=== PATIENT | male | born 1960 | race Caucasian/White ===

== ENCOUNTER 2016-08-06 08:55 | Outpatient (RCR) | payer OTHER ==
--- OUTSIDE RECORDS SUMMARY | 2016-07-24 13:18 | XMS REPORT | Continuity of Care Document ---
Author Author [facility] Address Unknown Phone Unavailable Care Team Providers Care Product Distribution Specialist Name Role Phone PCP Unavailable Source Comments Some departments are not documenting in the electronic medical record. If you do not see the information that you expected, contact Release of Information in the Health Information Management department at [phone] for further assistance in locating additional records.[facility] Active Allergies and Adverse Reactions Not on File Current Medications Not on file Active Problems Not on file Social History Tobacco Use Types Packs/Day Years Used Date Never Assessed Plan of Care Health Maintenance Due Date Last Done Comments Physical (Comprehensive) 1968 Exam Pertussis Vaccine 1972 Tetanus Vaccine 1978 Colorectal Cancer 2011 Screening Influenza Vaccine 06/14/2016 Results from Last 3 Months Not on file
[2016-07-24 14:13] LABS: BASOPHILS % (AUTO) 0 % (0-10); EOSINOPHILS # (AUTO) 0.2 10^3/uL (0.0-0.3); EOSINOPHILS % (AUTO) 3 % (0-10); LYMPHOCYTES # (AUTO) 1.1 X 10^3 (1.0-4.0); LYMPHOCYTES % (AUTO) 17 % (12-44); MEAN CORPUSCULAR HEMOGLOBIN 22 PG (25-34); MEAN CORPUSCULAR HGB CONC 30 G/DL (32-36); MEAN CORPUSCULAR VOLUME 74 FL (80-99); MEAN PLATELET VOLUME 9.8 FL (7.4-10.4); MONOCYTES # (AUTO) 0.6 X 10^3 (0.0-1.0); MONOCYTES % (AUTO) 9 % (0-12); NEUTROPHILS # (AUTO) 4.6 X 10^3 (1.8-7.8); NEUTROPHILS % (AUTO) 71 % (42-75); PLATELET COUNT 275 10^3/uL (130-400); RED BLOOD COUNT 4.26 10^6/uL (4.35-5.85); RED CELL DISTRIBUTION WIDTH 16.6 % (10.0-14.5); WHITE BLOOD COUNT 6.5 10^3/uL (4.3-11.0)
[~2016-08-06 08:55] MED LIST: ASPI1TAB22 PO; CEFU500T PO; CELE400C PO; CYAN100071 PO; DOXY100C2 PO; FERR-74 PO; FERRIC CARBOXYMALTOSE (CANCER) 750 MG in NS (IVPB) CANCER CENTER 250 ML IV SCH; HYDR-3816 PO; INSU100C7 SQ; INSU100V5; LORA10TA76 PO; METF1000 PO; MTF500T PO; NAPR-1033 PO; NF-VAL40T PO; PANT40TA2 PO; PIOG45TA16 PO; PRAV20TA3 PO; SUCR1TAB36 PO; SULF1TAB35 PO; TAMS0.4C98 PO; VALS1TAB4 PO
== END 2016-10-22 | disposition home or self-care (01) ==
LOC: ONC 08:55
PROVIDERS: ATTEND Internal Medicine Hematology & Oncology
DX: D50.9 Iron deficiency anemia, unspecified (principal); E11.9 Type 2 diabetes mellitus without complications; B18.2 Chronic viral hepatitis C; I10 Essential (primary) hypertension; E78.5 Hyperlipidemia, unspecified; F17.210 Nicotine dependence, cigarettes, uncomplicated; F10.99 Alcohol use, unspecified with unspecified alcohol-induced disorder; E66.9 Obesity, unspecified; Z68.38 Body mass index [BMI] 38.0-38.9, adult; Z79.899 Other long term (current) drug therapy
CPT/HCPCS: 85025; 96365

== ENCOUNTER 2017-02-19 07:23 | Day surgery (SDC) | payer OTHER ==
[~2017-02-19] VITALS: Ht 177.8 cm; Wt 106.1 kg
[~2017-02-19 07:23] MED LIST changes: -FERRIC CARBOXYMALTOSE (CANCER) 750 MG in NS (IVPB) CANCER CENTER 250 ML IV SCH
[2017-02-19] MEDS ORDERED: LIDOCAINE 1% INJ 20 ML (XYLOCAINE) VIAL ONE (07:32)
[2017-02-19] MEDS ORDERED: HEParin (CATH LAB) 0 ML IV ONE (07:32)
[2017-02-19] MEDS ORDERED: NS IV 1000 ML 1,000 ML ONE (07:32)
[2017-02-19 07:51] VITALS: BP 141/85
[2017-02-19] MEDS ORDERED: NS IV 1000 ML 1,000 ML IV SCH (08:00)
[2017-02-19 08:06] LABS: RED BLOOD COUNT 2.77 10^6/uL (4.35-5.85); RED CELL DISTRIBUTION WIDTH 14.9 % (10.0-14.5); WHITE BLOOD COUNT 3.7 10^3/uL (4.3-11.0)
[2017-02-19] MEDS ORDERED: TAMS0.4C98 PO (08:14)
[2017-02-19] MEDS ORDERED: RT-ALBUINH IH (08:14)
[2017-02-19] MEDS ORDERED: ASPI-983 PO (08:14)
[2017-02-19] MEDS ORDERED: METF500T4 PO (08:14)
[2017-02-19] MEDS ORDERED: INSU100V5 SQ (08:15)
[2017-02-19 08:18] LABS: INR 1.1 (0.8-1.4)
[2017-02-19] MEDS ORDERED: SILD100T PO (08:18)
[2017-02-19] MEDS ORDERED: METF1000 PO (08:22)
[2017-02-19 08:25] LABS: BILIRUBIN,TOTAL 0.4 MG/DL (0.1-1.0); CREATININE SERUM 1.35 MG/DL (0.60-1.30); POTASSIUM 4.5 MMOL/L (3.6-5.0); TOTAL PROTEIN 7.4 G/DL (6.4-8.2)
== END 2017-02-19 08:56 | disposition home or self-care (01) ==
LOC: CATH 07:23
PROVIDERS: ATTEND Internal Medicine Cardiovascular Disease
DX: R07.89 Other chest pain (principal); Z53.09 Procedure and treatment not carried out because of other contraindication; I10 Essential (primary) hypertension; E11.9 Type 2 diabetes mellitus without complications; Z72.0 Tobacco use; Z79.899 Other long term (current) drug therapy; Z79.4 Long term (current) use of insulin
CPT/HCPCS: 36415; 80053; 80061; 85027; 85610; 85730; 87081

== ENCOUNTER 2017-02-19 10:42 | Outpatient (RCR) | payer OTHER ==
[~2017-02-19] VITALS: Ht 177.8 cm; Wt 110.2 kg
[~2017-02-19 10:42] MED LIST changes: +ASPI-983 PO; +INSU100V5 SQ; +METF500T4 PO; -PIOG45TA16 PO; +PIOG45TA18 PO; +RT-ALBUINH IH; +SILD100T PO
[2017-02-20] VITALS (7 sets, daily range): BP systolic 112–130; BP diastolic 63–80
[2017-02-20] MEDS ORDERED: NS IV 500 ML 500 ML ONE (08:39)
[2017-02-20] MEDS ORDERED: NS IV 500 ML 500 ML IV SCH (09:45)
[2017-03-08] MEDS ORDERED: VITAMIN C PO (13:39)
[2017-03-08] MEDS ORDERED: FERR-74 PO (13:39)
[2017-03-11] MEDS ORDERED: CIPR-225 PO (23:37)
[2017-03-11] MEDS ORDERED: METR500T PO (23:37)
[2017-03-11] MEDS ORDERED: PANT40TA2 PO (23:37)
[2017-03-11] MEDS ORDERED: HYOS0.1283 SL (23:37)
[2017-03-11] MEDS ORDERED: ONDA4TAB8 PO (23:37)
[2017-03-11] MEDS ORDERED: LACT1CAP8 PO (23:37)
[2017-03-11] MEDS ORDERED: DICY10CA59 PO (23:37)
[2017-04-12] MEDS ORDERED: PANT40TA2 PO (15:44)
[2017-04-12] MEDS ORDERED: SUCR1TAB36 PO (15:44)
== END 2017-05-20 | disposition home or self-care (01) ==
LOC: LAB 10:42 → SDC 10:42 → EDSTATUS 02-20 08:28
PROVIDERS: ATTEND Internal Medicine
DX: D64.9 Anemia, unspecified (principal)
CPT/HCPCS: 36430; 86850; 86900; 86901; 86920

== ENCOUNTER 2017-03-08 10:21 | Inpatient (IN) | payer OTHER ==
[2017-03-08] VITALS (17 sets, daily range): BP systolic 116–144; BP diastolic 63–97
[~2017-03-08] VITALS: Ht 177.8 cm; Wt 117.5 kg
[~2017-03-08 10:21] MED LIST changes: +PIOG45TA16 PO; -PIOG45TA18 PO
[2017-03-08] MEDS ORDERED: ASPIRIN 81 MG CHEW (CHILDREN'S ASA) PO ONE (10:45)
[2017-03-08 10:52] LABS: BASOPHILS % (AUTO) 1 % (0-10); EOSINOPHILS # (AUTO) 0.2 10^3/uL (0.0-0.3); EOSINOPHILS % (AUTO) 4 % (0-10); LYMPHOCYTES % (AUTO) 25 % (12-44); MEAN CORPUSCULAR HEMOGLOBIN 23 PG (25-34); MEAN CORPUSCULAR HGB CONC 29 G/DL (32-36); MEAN CORPUSCULAR VOLUME 78 FL (80-99); MONOCYTES # (AUTO) 0.4 X 10^3 (0.0-1.0); MONOCYTES % (AUTO) 10 % (0-12); NEUTROPHILS # (AUTO) 2.5 X 10^3 (1.8-7.8); NEUTROPHILS % (AUTO) 61 % (42-75); PLATELET COUNT 256 10^3/uL (130-400); RED CELL DISTRIBUTION WIDTH 16.2 % (10.0-14.5); WHITE BLOOD COUNT 4.2 10^3/uL (4.3-11.0)
--- NOTE | 2017-03-08 11:03 | Diagnostic Imaging Report ---
INDICATION: Chest pain. EXAMINATION: Portable chest at 10:53 AM. FINDINGS: The heart size and pulmonary vascularity are normal. The lungs are clear. There are no effusions or pneumothoraces. IMPRESSION: Negative chest. Dictated by: Dictated on workstation # [id number]
[2017-03-08 11:09] LABS: ALANINE AMINOTRANSFERASE 37 U/L (0-55); ALBUMIN 3.7 G/DL (3.2-4.5); ANION GAP 9 MMOL/L (5-14); ASPARTATE AMINO TRANSFERASE 32 U/L (5-34); BILIRUBIN,TOTAL 0.4 MG/DL (0.1-1.0); BLOOD UREA NITROGEN 26 MG/DL (7-18); BUN/CREATININE RATIO 20; CALCIUM 8.8 MG/DL (8.5-10.1); CARBON DIOXIDE 22 MMOL/L (21-32); CHLORIDE 105 MMOL/L (98-107); CREATININE SERUM 1.29 MG/DL (0.60-1.30); GFR ESTIMATED 58; GLUCOSE 215 MG/DL (70-105); MAGNESIUM 1.7 MG/DL (1.8-2.4); POTASSIUM 4.5 MMOL/L (3.6-5.0); SODIUM 136 MMOL/L (135-145); TOTAL PROTEIN 7.3 G/DL (6.4-8.2)
--- NOTE | 2017-03-08 11:11 | ED Chest Pain ---
General Chief Complaint: Chest Pain Stated Complaint: CHEST PAIN Nursing Triage Note: PT STATES HE STARTED HAVING CHEST PAIN THIS AM WHEN HE WOKE UP. STATES THAT HE HAD BEEN SCHEDULED FOR A HEART CATH LAST WEEK BUT THAT IT WAS POSTPONED BECAUSE OF HIS ANEMIA. Nursing Sepsis Screen: No Definite Risk Source: patient Exam Limitations: no limitations History of Present Illness Time seen by provider: 11:10 Initial Comments Shots for him to ER with central chest pain since this morning at 5 a.m. when he awakened. He is also had some shortness of breath. He was scheduled for a cardiac catheterization last week but is postponed because of anemia. He does report dark stools but states that he takes an iron pill so is not sure if there is any blood in the stool. 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 Timing/Duration: 1 day Severity/Quality: moderate Radiation: no radiation Activities at Onset: none Allergies and Home Medications Allergies Coded Allergies: No Known Drug Allergies (Unverified , 08/11/12) Home Medications Albuterol Sulfate 6.7 Gm Hfa.aer.ad, 2 PUFF IH QID PRN for SHORTNESS OF BREATH, (Reported) Aspirin 81 Mg Tablet.dr, 81 MG PO DAILY, (Reported) Insulin Determir 1,000 Units/10 Ml Soln, 100 UNITS SQ HS, (Reported) Loratadine 10 Mg Tablet, 10 MG PO DAILY PRN for ALLERGIES, (Reported) Metformin HCl 1,000 Mg Tablet, 1,000 MG PO BID, (Reported) Pioglitazone HCl 45 Mg Tablet, 45 MG PO DAILY, (Reported) Pravastatin Sodium 20 Mg Tablet, 20 MG PO HS, (Reported) Sildenafil Citrate 100 Mg Tablet, 100 MG PO UD PRN for ED, (Reported) Tamsulosin HCl 0.4 Mg Cap, 0.4 MG PO 1730, (Reported) Valsartan 40 Mg Tab, 40 MG PO DAILY, (Reported) Review of Systems Constitutional: see HPI EENTM: No Symptoms Reported Respiratory: See HPI, Shortness of Air Cardiovascular: See HPI, Chest Pain Gastrointestinal: No Symptoms Reported Genitourinary: No Symptoms Reported Musculoskeletal: no symptoms reported Skin: no symptoms reported Psychiatric/Neurological: No Symptoms Reported Endocrine: No Symptoms Reported Past Cizrpss-Emnbsk-Fmfwgm Hx Patient Social History Alcohol Use: Occasionally Uses Recreational Drug Use: No Smoking Status: Current Everyday Smoker Type Used: Cigarettes Recent Foreign Travel: No Contact w/Someone Who Travel: No Recent Infectious Disease Expo: No Recent Hopitalizations: No Immunizations Up To Date Date of Pneumonia Vaccine: February 19, 2007 Seasonal Allergies Seasonal Allergies: Yes Surgeries HX Surgeries: No Surgeries: Abdominal Respiratory Hx Respiratory Disorders: Yes (sleep apnea, used to use cpap) Respiratory Disorders: Sleep Apnea Cardiovascular Hx Cardiac Disorders: Yes Cardiac Disorders: Heart Attack Neurological Hx Neurological Disorders: Yes (Presumed diabetic neuropathy of feet) Neurological Disorders: Neuropathy Reproductive System Hx Reproductive Disorders: No Genitourinary Hx Genitourinary Disorders: Yes Genitourinary Disorders: Renal Failure Gastrointestinal Hx Gastrointestinal Disorders: Yes (Hepatitis C) Gastrointestinal Disorders: Hepatitis, Hiatal Hernia Musculoskeletal Hx Musculoskeletal Disorders: No Endocrine Hx Endocrine Disorders: Yes Endocrine Disorders: Diabetes, Insulin dep HEENT HX ENT Disorders: No Cancer Hx Cancer: No Psychosocial Hx Psychiatric Problems: No Integumentary HX Skin/Integumentary Disorder: No Blood Transfusions Hx Blood Disorders: No Adverse Reaction to a Blood Tr: No Physical Exam Vital Signs Vital Sign - Last 12Hours 03/08/17 10:35 Temp 98.2 Pulse 88 Resp 15 B/P (MAP) 112/73 Capillary Refill : Less Than 3 Seconds General Appearance: No Apparent Distress, WD/WN, Obese HEENT: PERRL/EOMI, TMs Normal Neck: Full Range of Motion, Normal Inspection Respiratory: Lungs Clear, Normal Breath Sounds, No Accessory Muscle Use, No Respiratory Distress Cardiovascular: Regular Rate, Rhythm, Normal Peripheral Pulses Gastrointestinal: Non Tender, Soft Extremity: Normal Capillary Refill, No Calf Tenderness Neurologic/Psychiatric: Alert, Oriented x3 Skin: Normal Color, Warm/Dry Progress/Results/Core Measures Results/Orders Lab Results Laboratory Tests Test 03/08/17 10:30 03/08/17 10:54 Range/Units White Blood Count 4.2 L 4.3-11.0 10^3/uL Red Blood Count 3.00 L 4.35-5.85 10^6/uL Hemoglobin 6.9 *L 13.3-17.7 G/DL Hematocrit 24 L 40-54 % Mean Corpuscular Volume 78 L 80-99 FL Mean Corpuscular Hemoglobin 23 L 25-34 PG Mean Corpuscular Hemoglobin Concent 29 L 32-36 G/DL Red Cell Distribution Width 16.2 H 10.0-14.5 % Platelet Count 256 130-400 10^3/uL Mean Platelet Volume 9.0 7.4-10.4 FL Neutrophils (%) (Auto) 61 42-75 % Lymphocytes (%) (Auto) 25 12-44 % Monocytes (%) (Auto) 10 0-12 % Eosinophils (%) (Auto) 4 0-10 % Basophils (%) (Auto) 1 0-10 % Neutrophils # (Auto) 2.5 1.8-7.8 X 10^3 Lymphocytes # (Auto) 1.0 1.0-4.0 X 10^3 Monocytes # (Auto) 0.4 0.0-1.0 X 10^3 Eosinophils # (Auto) 0.2 0.0-0.3 10^3/uL Basophils # (Auto) 0.0 0.0-0.1 10^3/uL Sodium Level 136 135-145 MMOL/L Potassium Level 4.5 3.6-5.0 MMOL/L Chloride Level 105 98-107 MMOL/L Carbon Dioxide Level 22 21-32 MMOL/L Anion Gap 9 5-14 MMOL/L Blood Urea Nitrogen 26 H 7-18 MG/DL Creatinine 1.29 0.60-1.30 MG/DL Estimat Glomerular Filtration Rate 58 BUN/Creatinine Ratio 20 Glucose Level 215 H 70-105 MG/DL Calcium Level 8.8 8.5-10.1 MG/DL Magnesium Level 1.7 L 1.8-2.4 MG/DL Total Bilirubin 0.4 0.1-1.0 MG/DL Aspartate Amino Transf (AST/SGOT) 32 5-34 U/L Alanine Aminotransferase (ALT/SGPT) 37 0-55 U/L Alkaline Phosphatase 45 40-136 U/L Myoglobin 38.2 10.0-92.0 NG/ML Troponin I < 0.30 <0.30 NG/ML Total Protein 7.3 6.4-8.2 G/DL Albumin 3.7 3.2-4.5 G/DL Prothrombin Time 13.6 12.2-14.7 SEC INR Comment 1.1 0.8-1.4 Activated Partial Thromboplast Time 27 24-35 SEC My Orders Orders - LUCINA GOEL FIELD CONSULTANT Cbc With Automated Diff (03/08/17 10:40) Magnesium (03/08/17 10:40) Chest 1 View, Ap/Pa Only (03/08/17 10:40) Ekg Tracing (03/08/17 10:40) Cardiac Profile 1 (03/08/17 10:40) Comprehensive Metabolic Panel (03/08/17 10:40) Myoglobin Serum (03/08/17 10:40) Protime With Inr (03/08/17 10:40) Partial Thromboplastin Time (03/08/17 10:40) O2 (03/08/17 10:40) Monitor-Rhythm Ecg Trace Only (03/08/17 10:40) Lipid Panel (03/09/17 06:00) Aspirin Chewable Tablet (Baby Aspirin Ch (03/08/17 10:45) Saline Lock/Iv-Start (03/08/17 10:40) Type And Screen (03/08/17 11:06) Red Cells Leukocytes Reduced (03/08/17 11:06) Anemia Analyzer (03/08/17 11:37) Medications Given in ED Current Medications Medications Dose Ordered Sig/Winter Route Start Time Stop Time Status Last Admin Dose Admin Aspirin 324 mg ONCE ONCE PO 03/08/17 10:45 03/08/17 10:47 DC 03/08/17 10:44 324 MG Vital Signs/I&O Vital Sign - Last 12Hours 03/08/17 10:35 Temp 98.2 Pulse 88 Resp 15 B/P (MAP) 112/73 Blood Pressure Mean: 86 Departure Communication Time/Spoke to Admitting Phy: 11:[address] Leon. We will admit, transfuse packed red cells, consult cardiology Time/Spoke to Consulting Physi: 11:40 Communication/Consulting Discussed with Dr. Stern. He will consult Progress Notes 1140-chest pain started at 5 a.m. this morning upon awakening. Despite 6 hours of constant chest pain his troponin remains negative without EKG changes. Impression Impression: Primary Impression: Chest pain Additional Impression: Symptomatic anemia Disposition: ADMITTED INPATIENT Condition: Stable Decision to Admit Reason: Admit from ER (General) Decision to Admit/Date: March 08, 2017 Time/Decision to Admit Time: 11:27 Departure-Patient Inst. Referrals: NIMISHA MORIN DO (PCP/Family) Primary Care Physician LUCINA GOEL APRN March 08, 2017 11:11
[2017-03-08 11:16] LABS: MYOGLOBIN SERUM 38.2 NG/ML (10.0-92.0)
[2017-03-08 11:21] LABS: INR 1.1 (0.8-1.4); PROTHROMBIN TIME PATIENT 13.6 SEC (12.2-14.7)
[2017-03-08 11:53] LABS: BASOPHILS % (AUTO) 1 % (0-10); EOSINOPHILS # (AUTO) 0.2 10^3/uL (0.0-0.3); EOSINOPHILS % (AUTO) 4 % (0-10); LYMPHOCYTES % (AUTO) 25 % (12-44); MEAN CORPUSCULAR HEMOGLOBIN 23 PG (25-34); MEAN CORPUSCULAR HGB CONC 29 G/DL (32-36); MEAN CORPUSCULAR VOLUME 78 FL (80-99); MONOCYTES # (AUTO) 0.4 X 10^3 (0.0-1.0); MONOCYTES % (AUTO) 10 % (0-12); NEUTROPHILS # (AUTO) 2.5 X 10^3 (1.8-7.8); NEUTROPHILS % (AUTO) 61 % (42-75); PLATELET COUNT 256 10^3/uL (130-400); RED CELL DISTRIBUTION WIDTH 16.2 % (10.0-14.5); WHITE BLOOD COUNT 4.2 10^3/uL (4.3-11.0)
[2017-03-08 11:58] LABS: RETICULOCYTE % 2.57 % (0.50-2.40)
[2017-03-08] MEDS ORDERED: NS (IVPB) 250 ML ONE (12:41)
[2017-03-08] MEDS ORDERED: CATHETER FLUSH 10 ML SYR IV PRN (13:30)
[2017-03-08] MEDS ORDERED: NS IV 500 ML 500 ML IV NR (13:30)
[2017-03-08] MEDS ORDERED: FERR-74 PO (13:39)
[2017-03-08] MEDS ORDERED: VITAMIN C PO (13:39)
--- NOTE | 2017-03-08 13:55 | Consultation-Cardiology ---
HPI-Cardiology Cardiology Consultation: Date of Consultation 03/08/17 Date of Admission 03/08/17 Attending Physician Faviola Leon MD Admitting Physician Wagner Franklin MD Consulting Physician REY LEMUS MD, MA, FACP, FACC, FSCAI, CCDS HPI: Chief Complaint: Reason for consultation: Chest discomfort 56 yo man admitted to Dr Leon with three days of epigastric discomfort, radiating to L chest, mild to mod, burning in character, without any aggravating or relieving factors. He has had such discomfort intermittently for several months. The frequency is once or twice a month. Is not specifically associated with other symptoms Independently of the chest discomfort, he has had increasing malaise and tiredness and exertional shortness of breath Denies fever or chills Has chronic mild intermittent leg swelling, unchanged in the past Denies palp or syncope Denies vomiting or diarrhea or blood in stools Review of Systems-Cardiology Review of Systems Constitutional: As described under HPI Eyes: No vision change Ears/Nose/Throat: No ear discharge, No nasal drainage, No recent hearing loss Respiratory: As described under HPI Cardiovascular: As described under HPI Gastrointestinal: As described under HPI Genitourinary: No dysuria, No hematuria, No urine frequency changes Musculoskeletal: back pain (chronic) Skin: No rash, No ulcerations Psychiatric/Neurological: No focal weakness, No seizure, No syncope Hematologic: No bleeding abnormalities CZA-Uhjchs-Owumiq Hx Patient Social History Alcohol Use: Occasionally Uses Recreational Drug Use: No Smoking Status: Current Everyday Smoker Type Used: Cigarettes Recent Foreign Travel: No Recent Infectious Disease Expo: No Hospitalization with Isolation: Denies Immunizations Up To Date Date of Pneumonia Vaccine: February 19, 2007 Past Medical History PMH As described under Assessment. Family Medical History Family Medical History: He does not report fam h/o early CAD Allergies and Home Medications Allergies Coded Allergies: No Known Drug Allergies (Unverified , 08/11/12) Home Medications Albuterol Sulfate 6.7 Gm Hfa.aer.ad, 2 PUFF IH QID PRN for SHORTNESS OF BREATH, (Reported) Aspirin 81 Mg Tablet.dr, 81 MG PO DAILY, (Reported) Ferrous Sulfate 325 Mg Tablet, 325 MG PO TID, (Reported) Insulin Determir 1,000 Units/10 Ml Soln, 100 UNITS SQ HS, (Reported) Loratadine 10 Mg Tablet, 10 MG PO DAILY PRN for ALLERGIES, (Reported) Metformin HCl 1,000 Mg Tablet, 1,000 MG PO BID, (Reported) Pioglitazone HCl 45 Mg Tablet, 45 MG PO DAILY, (Reported) Pravastatin Sodium 20 Mg Tablet, 20 MG PO HS, (Reported) Sildenafil Citrate 100 Mg Tablet, 100 MG PO UD PRN for ED, (Reported) Tamsulosin HCl 0.4 Mg Cap, 0.4 MG PO 1730, (Reported) Valsartan 40 Mg Tab, 40 MG PO DAILY, (Reported) [Vitamin C] , 1 TAB PO TID, (Reported) Physical Exam-Cardiology Physical Exam Vital Signs/I&O Vital Sign - Last 12Hours 03/08/17 03/08/17 10:35 13:39 Temp 98.2 98.1 Pulse 88 92 Resp 15 18 B/P (MAP) 112/73 132/76 Pulse Ox 98 Capillary Refill : Less Than 3 Seconds Constitutional: AAO x 3, well-developed, well-nourished HEENT: hearing is well preserved, No xanthelasmas are seen Neck: No carotid bruit, carotid pulses are 2 + bilaterally, with good upstrokes Respiratory: No accessory muscle use, No respiratory distress, lungs clear to percussion, lungs clear to auscultation Cardiovascular: regular rate-rhythm, S1 and S2, systolic murmur (soft SASHA at card base) Gastrointestinal: No tender, soft, No guarding, No rebound, audible bowel sounds Extremities: No clubbing, No cyanosis, No significant edema Neurologic/Psychiatric: oriented x 3, grossly intact, power is 5/5 both on sides Skin: No rash, No ulcerations Data Review Labs Laboratory Tests 03/08/17 10:30: White Blood Count 4.2L, Red Blood Count 3.00L, Hemoglobin 6.9*L, Hematocrit 24L , Mean Corpuscular Volume 78L, Mean Corpuscular Hemoglobin 23L, Mean Corpuscular Hemoglobin Concent 29L, Red Cell Distribution Width 16.2H, Platelet Count 256, Mean Platelet Volume 9.0, Neutrophils (%) (Auto) 61, Lymphocytes (%) (Auto) 25, Monocytes (%) (Auto) 10, Eosinophils (%) (Auto) 4, Basophils (%) ( Auto) 1, Neutrophils # (Auto) 2.5, Lymphocytes # (Auto) 1.0, Monocytes # (Auto) 0.4, Eosinophils # (Auto) 0.2, Basophils # (Auto) 0.0, Sodium Level 136, Potassium Level 4.5, Chloride Level 105, Carbon Dioxide Level 22, Anion Gap 9, Blood Urea Nitrogen 26H, Creatinine 1.29, Estimat Glomerular Filtration Rate 58 , BUN/Creatinine Ratio 20, Glucose Level 215H, Calcium Level 8.8, Magnesium Level 1.7L, Total Bilirubin 0.4, Aspartate Amino Transf (AST/SGOT) 32, Alanine Aminotransferase (ALT/SGPT) 37, Alkaline Phosphatase 45, Myoglobin 38.2, Troponin I < 0.30, Total Protein 7.3, Albumin 3.7 03/08/17 10:36: White Blood Count 4.2L, Red Blood Count 3.00L, Hemoglobin 6.9*L, Hematocrit 24L , Mean Corpuscular Volume 78L, Mean Corpuscular Hemoglobin 23L, Mean Corpuscular Hemoglobin Concent 29L, Red Cell Distribution Width 16.2H, Platelet Count 256, Mean Platelet Volume 9.0, Neutrophils (%) (Auto) 61, Lymphocytes (%) (Auto) 25, Monocytes (%) (Auto) 10, Eosinophils (%) (Auto) 4, Basophils (%) ( Auto) 1, Neutrophils # (Auto) 2.5, Lymphocytes # (Auto) 1.0, Monocytes # (Auto) 0.4, Eosinophils # (Auto) 0.2, Basophils # (Auto) 0.0, Absolute Reticulocyte Count 79, Percent Reticulocyte Count 2.57H 03/08/17 10:54: Prothrombin Time 13.6, INR Comment 1.1, Activated Partial Thromboplast Time 27 Laboratory Tests 03/08/17 10:30 03/08/17 10:36 ECG Impression ECG Comment ECG on 03/08/17 (during chest discomfort): NSR, no evidence of acute ischemia or infarction A/P-Cardiology Assessment/Admission Diagnosis Chest discomfort w/o and evidence of ACS; chest discomfort is likely noncardiac Profound anemia, recurrent after recent blood transfusions. This suggest occult bleeding Chest discomfort and anemia may be due a gastric/duodenal pathology. Pt does report a h/o HH Obesity with BMI approx 35 Chronic tobacco use DM II Hypertension CAD, as indicated by LAD calcification on CT of 02/02/16 Mild aortic root dilatation (4.3 cm arnie) on CT of January 2016 Hep C Discussion and Recomendations * There is no evidence of any ACS * We recommend treatment of anemia and investigation of cause * Ok to hold antiplatelet therapy until bleeding issue addressed * Ok to proceed with endoscopy from a cardiac standpoint * He does have cor risk factors and we discussed risk factor modification. In particular, I asked him to quit smoking immediately and completely * Dr Best is covering the Cardiology service over the weekend Clinical Quality Measures AMI/AHF: ASA po Prior to arrival: REY Zimmerman MD FACP FACC CCDS March 08, 2017 13:54
[2017-03-08 14:06] LABS: BASOPHILS % (MANUAL) 0 %; EOSINOPHILS % (MANUAL) 3 %; LYMPHOCYTES % (MANUAL) 22 %; NEUTROPHILS % (MANUAL) 69 %
[2017-03-08 14:07] LABS: ANISOCYTOSIS SLIGHT; HYPOCHROMASIA SLIGHT; MICROCYTOSIS SLIGHT; POLYCHROMASIA SLIGHT
--- NOTE | 2017-03-08 14:23 | History & Physicial ([facility]) ---
HPI History of Present Illness: 56 yo male presented to ER after having chest pain, tightness this morning. He notes that during the night he had leg cramps and then woke up around 5 with central chest pain and tightness, shortness of breath, feeling foggy and nauseated. He now has some pain in left chest. He has had some chest pain prior and was planned to have cardiac catheterization last week, but found to have marked anemia, requiring transfusion. He is significantly anemia still today. He reports anemia for several months to a year and work-up including upper and lower scope- showed polyps and hiatal hernia per his report, and CT of chest and abdomen. He denies blood in stool, vomiting blood. He does have chronic hepatitis C. Date seen by provider: March 08, 2017 Time seen by provider: 13:10 Attending Physician Faviola Leon MD PCP Wagner Franklin MD Consult Date of Admission March 08, 2017 at 11:41 am Home Medications Home Medications Reviewed patient Home Medication Reconciliation Form Allergies Coded Allergies: No Known Drug Allergies (Unverified , 08/11/12) EOK-Bdfezn-Yllqjf Hx Patient Social History Alcohol Use: Occasionally Uses Recreational Drug Use: No Smoking Status: Current Everyday Smoker Type Used: Cigarettes Recent Foreign Travel: No Contact w/other who traveled: No Recent Hopitalizations: No Recent Infectious Disease Expo: No Immunizations Up To Date Date of Pneumonia Vaccine: February 19, 2007 Past Medical History PMHx: DMII HTN HLD Chronic Hep C Iron deficiency anemia of unclear etiology PSurgHx: Right knee Right hip Family Medical History Significant Family History: Diabetes, Hypertension Review of Systems ([facility]) Constitutional: No fever, malaise, weakness EENTM: No nose congestion, No throat pain Respiratory: cough (x a few weeks), short of breath (x a few weeks) Cardiovascular: see HPI Gastrointestinal: No abdominal pain, No constipation, No diarrhea, No hematemesis, No nausea, No vomiting Genitourinary: No dysuria Musculoskeletal: joint pain (right low back) Skin: No rash Psychiatric/Neurological: No Symptoms Reported Reviewed Test Results Reviewed Test Results Lab Laboratory Tests Test 03/08/17 10:30 03/08/17 10:36 03/08/17 10:54 Range/Units White Blood Count 4.2 L 4.2 L 4.3-11.0 10^3/uL Red Blood Count 3.00 L 3.00 L 4.35-5.85 10^6/uL Hemoglobin 6.9 *L 6.9 *L 13.3-17.7 G/DL Hematocrit 24 L 24 L 40-54 % Mean Corpuscular Volume 78 L 78 L 80-99 FL Mean Corpuscular Hemoglobin 23 L 23 L 25-34 PG Mean Corpuscular Hemoglobin Concent 29 L 29 L 32-36 G/DL Red Cell Distribution Width 16.2 H 16.2 H 10.0-14.5 % Platelet Count 256 256 130-400 10^3/uL Mean Platelet Volume 9.0 9.0 7.4-10.4 FL Neutrophils (%) (Auto) 61 61 42-75 % Lymphocytes (%) (Auto) 25 25 12-44 % Monocytes (%) (Auto) 10 10 0-12 % Eosinophils (%) (Auto) 4 4 0-10 % Basophils (%) (Auto) 1 1 0-10 % Neutrophils # (Auto) 2.5 2.5 1.8-7.8 X 10^3 Lymphocytes # (Auto) 1.0 1.0 1.0-4.0 X 10^3 Monocytes # (Auto) 0.4 0.4 0.0-1.0 X 10^3 Eosinophils # (Auto) 0.2 0.2 0.0-0.3 10^3/uL Basophils # (Auto) 0.0 0.0 0.0-0.1 10^3/uL Sodium Level 136 135-145 MMOL/L Potassium Level 4.5 3.6-5.0 MMOL/L Chloride Level 105 98-107 MMOL/L Carbon Dioxide Level 22 21-32 MMOL/L Anion Gap 9 5-14 MMOL/L Blood Urea Nitrogen 26 H 7-18 MG/DL Creatinine 1.29 0.60-1.30 MG/DL Estimat Glomerular Filtration Rate 58 BUN/Creatinine Ratio 20 Glucose Level 215 H 70-105 MG/DL Calcium Level 8.8 8.5-10.1 MG/DL Magnesium Level 1.7 L 1.8-2.4 MG/DL Total Bilirubin 0.4 0.1-1.0 MG/DL Aspartate Amino Transf (AST/SGOT) 32 5-34 U/L Alanine Aminotransferase (ALT/SGPT) 37 0-55 U/L Alkaline Phosphatase 45 40-136 U/L Myoglobin 38.2 10.0-92.0 NG/ML Troponin I < 0.30 <0.30 NG/ML Total Protein 7.3 6.4-8.2 G/DL Albumin 3.7 3.2-4.5 G/DL Neutrophils % (Manual) 69 % Lymphocytes % (Manual) 22 % Monocytes % (Manual) 6 % Eosinophils % (Manual) 3 % Basophils % (Manual) 0 % Polychromasia SLIGHT Hypochromasia SLIGHT Anisocytosis SLIGHT Microcytosis SLIGHT Absolute Reticulocyte Count 79 24-90 10e9/L Percent Reticulocyte Count 2.57 H 0.50-2.40 % Prothrombin Time 13.6 12.2-14.7 SEC INR Comment 1.1 0.8-1.4 Activated Partial Thromboplast Time 27 24-35 SEC Radiology CXR 03/08: "Negative chest" Physical Exam-([facility]) Physical Exam Vital Signs VS - Last 72 Hours, by Label 03/08/17 03/08/17 03/08/17 03/08/17 10:35 12:15 12:25 12:27 Temp 98.2 98.1 Pulse 88 80 84 85 Resp 15 13 16 B/P (MAP) 112/73 116/73 Pulse Ox 97 98 03/08/17 03/08/17 03/08/17 13:00 13:39 13:54 Temp 98.1 98.4 Pulse 81 92 70 Resp 18 16 B/P (MAP) 132/76 127/81 Pulse Ox 98 97 Capillary Refill : Less Than 3 Seconds General Appearance: WD/WN, no apparent distress Respiratory: lungs clear, normal breath sounds Cardiovascular: regular rate, rhythm, no edema, no murmur Gastrointestinal: normal bowel sounds, non tender, soft, other (distended with possible ascites versus central adiposity) Extremities: no pedal edema Neurologic/Psychiatric: alert Skin: normal color, warm/dry Assessment/Plan Assessment/Plan Admission Dx 1. Severe iron deficiency anemia 2. Chest pain 3. DMII 4. HTN 5. HLD 6. Hep C Plan 1. Severe iron deficiency anemia- has had anemia c/w iron deficiency by labs for at least a year -Hematology referral 01/2016 with resultant testing- Chest CT without acute pathology, abdominal CT with lobulated liver c/w underlying chronic disease or cirrhosis, mild splenomegaly and lsighlty dilated gall bladder; EGD/colonoscopy 04/2016 with gastritis H pylori negative and tubular adenoma and non-bleeding diverticulosis -Just received transfusion last week and is below 7 again, will transfuse, but if continues to decrease, may need repeat scope vs capsule endoscopy -Liver US to follow-up CT findings and chronic Hep C 2. Chest pain- anemia related vs CAD, troponin normal -Cardiology consulted, appreciate recommendations 3. DMII- resume home insulin and metformin, hold pioglitazone 4. HTN- resume home meds 5. HLD- resume home meds 6. Hep C- liver US as noted above, AFP last year was normal, will repeat DVT ppx- SCDs, no pharmacologic ppx given possible active bleeding Diagnosis/Problems: Clinical Quality Measures AMI/AHF: ASA po Prior to arrival: No Copy Copies To 1: JOSE Jacome BETHANY N MD March 08, 2017 2:23 pm
[2017-03-08] MEDS ORDERED: RT-ALBUTEROL HFA (VENTOLIN) PER PUFF IH PRN (14:30)
[2017-03-08] MEDS ORDERED: SILDENAFIL CITRATE 100 MG PO PRN (14:30)
[2017-03-08] MEDS ORDERED: LORATADINE (CLARITIN) 10 MG TAB PO PRN (14:30)
[2017-03-08] MEDS ORDERED: RT-ALBUTEROL SULF 2.5 MG/3 ML PRE-MIX VIAL IH PRN (14:45)
--- NOTE | 2017-03-08 16:36 | Diagnostic Imaging Report ---
US HEPATIC (LIVER)[id number] TECHNIQUE: Grayscale and color Doppler imaging of the right upper quadrant was performed. INDICATION: Possible cirrhosis. COMPARISON: None available. FINDINGS: The liver is on the upper limits of normal in size measuring 18 cm in length. It demonstrates mild nodularity of the surface contours. No focal hepatic lesion is seen. Gallbladder is incompletely distended without shadowing gallstones or pericholecystic fluid. Mild diffuse gallbladder wall thickening is present, and is frequently seen with liver disease. The common bile duct was obscured by overlying bowel gas, and not visualized. The pancreas is obscured by overlying bowel gas, and not visualized. The right kidney is normal in size. No hydronephrosis, shadowing calculi, or suspicious mass lesion. No right upper quadrant ascites. IMPRESSION: 1. Nodular surface of the liver is suggestive of cirrhosis. No focal hepatic lesion. 2. No right upper quadrant ascites. 3. Mild diffuse gallbladder wall thickening is frequently seen with chronic liver disease. Dictated by: Dictated on workstation # [id number]
[2017-03-08] MEDS: metFORMIN 500 MG (GLUCOPHAGE) TAB PO SCH (17:12)
[2017-03-08] MEDS ORDERED: NON-FORMULARY MEDICATION 1 EA EA (Tamsulosin HCl (Flomax) 0.4 MG) PO SCH (17:30)
[2017-03-08] MEDS ORDERED: ALFUZOSIN HCL 10 MG TAB (UROXATRAL) PO SCH (18:00)
[2017-03-08] MEDS: NS IV 1000 ML 1,000 ML IV SCH (18:26)
[2017-03-08] MEDS ORDERED: inSUlin DETERMIR 1000 UNITS/10 ML VIAL (LEVEMIR) SQ SCH (21:00)
[2017-03-08] MEDS ORDERED: SIMvastatin 10 MG (ZOCOR) TAB PO SCH (21:00)
[2017-03-08] MEDS ORDERED: NON-FORMULARY MEDICATION 1 EA EA (Metformin HCl 1,000 MG) PO SCH (21:00)
[2017-03-08] MEDS ORDERED: NON-FORMULARY MEDICATION 1 EA EA (Pravastatin Sodium 20 MG) PO SCH (21:00)
[2017-03-08] MEDS ORDERED: inSUlin DETERMIR 1 UNIT/0.01 ML (LEVEMIR) CHARGE PER UNIT SQ SCH (21:00)
[2017-03-08] MEDS: inSUlin ASPART (NovoLOG) 1 UNIT/0.01 ML (CHARGE PER UNIT) SC SCH (21:52)
[2017-03-09] VITALS (25 sets, daily range): BP systolic 99–157; BP diastolic 63–100
[2017-03-09] MEDS: NS IV 1000 ML 1,000 ML IV SCH ×2 (03:30→07:57)
[2017-03-09 04:40] LABS: BASOPHILS % (AUTO) 1 % (0-10); EOSINOPHILS # (AUTO) 0.2 10^3/uL (0.0-0.3); EOSINOPHILS % (AUTO) 5 % (0-10); LYMPHOCYTES % (AUTO) 23 % (12-44); MEAN CORPUSCULAR HEMOGLOBIN 24 PG (25-34); MEAN CORPUSCULAR HGB CONC 31 G/DL (32-36); MEAN CORPUSCULAR VOLUME 79 FL (80-99); MEAN PLATELET VOLUME 9.8 FL (7.4-10.4); MONOCYTES # (AUTO) 0.5 X 10^3 (0.0-1.0); MONOCYTES % (AUTO) 11 % (0-12); NEUTROPHILS # (AUTO) 2.5 X 10^3 (1.8-7.8); NEUTROPHILS % (AUTO) 60 % (42-75); PLATELET COUNT 231 10^3/uL (130-400); RED BLOOD COUNT 3.37 10^6/uL (4.35-5.85); RED CELL DISTRIBUTION WIDTH 16.1 % (10.0-14.5); WHITE BLOOD COUNT 4.1 10^3/uL (4.3-11.0)
[2017-03-09 05:19] LABS: CHOLESTEROL 128 MG/DL (< 200); DIRECT LDL 77 MG/DL (1-129); TRIGLYCERIDES 89 MG/DL (<150); VLDL CHOLESTEROL 18 MG/DL (5-40)
[2017-03-09 05:21] LABS: ANION GAP 8 MMOL/L (5-14); BLOOD UREA NITROGEN 22 MG/DL (7-18); BUN/CREATININE RATIO 21; CALCIUM 8.4 MG/DL (8.5-10.1); CARBON DIOXIDE 21 MMOL/L (21-32); CHLORIDE 108 MMOL/L (98-107); CREATININE SERUM 1.06 MG/DL (0.60-1.30); GFR ESTIMATED > 60; GLUCOSE 167 MG/DL (70-105); MAGNESIUM 1.9 MG/DL (1.8-2.4); PHOSPHORUS 3.7 MG/DL (2.3-4.7); POTASSIUM 4.5 MMOL/L (3.6-5.0); SODIUM 137 MMOL/L (135-145)
[2017-03-09] MEDS: metFORMIN 500 MG (GLUCOPHAGE) TAB PO SCH (06:57)
[2017-03-09] MEDS: inSUlin ASPART (NovoLOG) 1 UNIT/0.01 ML (CHARGE PER UNIT) SC SCH ×3 (06:57→15:16)
[2017-03-09] MEDS ORDERED: VALSARTAN 40 MG PO SCH (09:00)
[2017-03-09] MEDS ORDERED: VALSARTAN 80 MG (DIOVAN) TAB PO SCH (09:00)
[2017-03-09] MEDS ORDERED: NS IV 500 ML 500 ML ONE (10:03)
[2017-03-09] MEDS ORDERED: NS IV 500 ML 500 ML IV SCH (10:15)
--- NOTE | 2017-03-09 11:55 | Diagnostic Imaging Report ---
INDICATION: Anemia and shortness of breath. Frontal chest obtained at 4:17 a.m. and compared to yesterday. FINDINGS: Cardiomegaly is again noted. There is mild central vascular prominence. There is no focal infiltrate or pneumothorax or pleural fluid. IMPRESSION: Cardiomegaly and mild central vascular prominence. No acute edema or infiltrate or pleural fluid. Stable appearance compared to the prior study. Dictated by: Dictated on workstation # [id number]
--- NOTE | 2017-03-09 12:04 | Discharge Summary ---
Diagnosis/Chief Complaint Date of Admission March 08, 2017 at 11:41 Date of Discharge March 09 Admission Diagnosis Admission Diagnosis 1. Severe iron deficiency anemia 2. Chest pain 3. DMII 4. HTN 5. HLD 6. Hep C Discharge Diagnosis 1. Severe iron deficiency anemia- has had anemia c/w iron deficiency by labs for at least a year -Hematology referral 01/2016 with resultant testing- Chest CT without acute pathology, abdominal CT with lobulated liver c/w underlying chronic disease or cirrhosis, mild splenomegaly and lsighlty dilated gall bladder; EGD/colonoscopy 04/2016 with gastritis H pylori negative and tubular adenoma and non-bleeding diverticulosis -Just received transfusion last week and is below 7 again, will transfuse, but if continues to decrease, may need repeat scope vs capsule endoscopy -Liver US to follow-up CT findings and chronic Hep C DSC: patient needs to folow upw tih Dr Santos as well as Heme/Onc. Continue the FeSO4 TID for now. May need to be on IV iron in the future or need a tagged red cell scan. will defer to PCP and Heme to order/arrange. 2. Chest pain- anemia related vs CAD, troponin normal -Cardiology consulted, appreciate recommendations DSC: Determined not to be ACS, likely symptomatic anemia. Hold antiplatelet therapy for now. 3. DMII- resume home insulin and metformin, hold pioglitazone 4. HTN- resume home meds 5. HLD- resume home meds 6. Hep C- liver US as noted above, AFP last year was normal, will repeat DSC: US shows cirrhosis, will plan to treat hep c as an outpatient, but he needs to find the source of the bleeding before we get that started. will contact Carolina Albert, hepatitis C nurse coordinator, to arrange an appointment. Chief Complaint/HPI Chief Complaint/HPI 56 yo male presented to ER after having chest pain, tightness this morning. He notes that during the night he had leg cramps and then woke up around 5 with central chest pain and tightness, shortness of breath, feeling foggy and nauseated. He now has some pain in left chest. He has had some chest pain prior and was planned to have cardiac catheterization last week, but found to have marked anemia, requiring transfusion. He is significantly anemia still today. He reports anemia for several months to a year and work-up including upper and lower scope- showed polyps and hiatal hernia per his report, and CT of chest and abdomen. He denies blood in stool, vomiting blood. He does have chronic hepatitis C. Discharge Summary-Simple/Stand Consultations Discharge Physical Examination Allergies: Coded Allergies: No Known Drug Allergies (Unverified , 08/11/12) Vitals & I&Os Vital Sign - Last 12Hours Date Time Temp Pulse Resp B/P (MAP) Pulse Ox O2 Delivery O2 Flow Rate FiO2 03/09/17 11:16 97.6 80 16 109/63 98 Intake and Output 03/09/17 00:00 Intake Total 660 ml Output Total 800 ml Balance -140 ml General Appearance: Alert, Oriented X3, Cooperative, No Acute Distress Respiratory: Clear to Auscultation, Normal Air Movement Cardiovascular: Regular Rate, Normal S1, Normal S2, No Murmurs, Gallops, Rubs Abdominal: Normal Bowel Sounds, Soft, No Tenderness, Other (obese) Extremities: No Clubbing, No Cyanosis, No Edema Skin: No Rashes, No Breakdown Neuro: Normal Speech Psych/Mental Status: Mental Status NL, Mood NL Hospital Course See final discharge diagnosis. Labs Laboratory Tests Test 03/08/17 10:30 03/08/17 10:36 03/08/17 10:54 03/08/17 20:15 Range/Units White Blood Count 4.2 L 4.2 L 4.3-11.0 10^3/uL Red Blood Count 3.00 L 3.00 L 4.35-5.85 10^6/uL Hemoglobin 6.9 *L 6.9 *L 8.5 #L 13.3-17.7 G/DL Hematocrit 24 L 24 L 28 L 40-54 % Mean Corpuscular Volume 78 L 78 L 80-99 FL Mean Corpuscular Hemoglobin 23 L 23 L 25-34 PG Mean Corpuscular Hemoglobin Concent 29 L 29 L 32-36 G/DL Red Cell Distribution Width 16.2 H 16.2 H 10.0-14.5 % Platelet Count 256 256 130-400 10^3/uL Mean Platelet Volume 9.0 9.0 7.4-10.4 FL Neutrophils (%) (Auto) 61 61 42-75 % Lymphocytes (%) (Auto) 25 25 12-44 % Monocytes (%) (Auto) 10 10 0-12 % Eosinophils (%) (Auto) 4 4 0-10 % Basophils (%) (Auto) 1 1 0-10 % Neutrophils # (Auto) 2.5 2.5 1.8-7.8 X 10^3 Lymphocytes # (Auto) 1.0 1.0 1.0-4.0 X 10^3 Monocytes # (Auto) 0.4 0.4 0.0-1.0 X 10^3 Eosinophils # (Auto) 0.2 0.2 0.0-0.3 10^3/uL Basophils # (Auto) 0.0 0.0 0.0-0.1 10^3/uL Sodium Level 136 135-145 MMOL/L Potassium Level 4.5 3.6-5.0 MMOL/L Chloride Level 105 98-107 MMOL/L Carbon Dioxide Level 22 21-32 MMOL/L Anion Gap 9 5-14 MMOL/L Blood Urea Nitrogen 26 H 7-18 MG/DL Creatinine 1.29 0.60-1.30 MG/DL Estimat Glomerular Filtration Rate 58 BUN/Creatinine Ratio 20 Glucose Level 215 H 70-105 MG/DL Calcium Level 8.8 8.5-10.1 MG/DL Magnesium Level 1.7 L 1.8-2.4 MG/DL Total Bilirubin 0.4 0.1-1.0 MG/DL Aspartate Amino Transf (AST/SGOT) 32 5-34 U/L Alanine Aminotransferase (ALT/SGPT) 37 0-55 U/L Alkaline Phosphatase 45 40-136 U/L Myoglobin 38.2 10.0-92.0 NG/ML Troponin I < 0.30 <0.30 NG/ML Total Protein 7.3 6.4-8.2 G/DL Albumin 3.7 3.2-4.5 G/DL Neutrophils % (Manual) 69 % Lymphocytes % (Manual) 22 % Monocytes % (Manual) 6 % Eosinophils % (Manual) 3 % Basophils % (Manual) 0 % Polychromasia SLIGHT Hypochromasia SLIGHT Anisocytosis SLIGHT Microcytosis SLIGHT Absolute Reticulocyte Count 79 24-90 10e9/L Percent Reticulocyte Count 2.57 H 0.50-2.40 % Prothrombin Time 13.6 12.2-14.7 SEC INR Comment 1.1 0.8-1.4 Activated Partial Thromboplast Time 27 24-35 SEC Test 03/08/17 21:50 03/09/17 03:44 03/09/17 10:15 03/09/17 10:55 Range/Units Glucometer 150 H 150 H 70-110 MG/DL White Blood Count 4.1 L 4.3-11.0 10^3/uL Red Blood Count 3.37 L 4.35-5.85 10^6/uL Hemoglobin 8.1 L 13.3-17.7 G/DL Hematocrit 27 L 40-54 % Mean Corpuscular Volume 79 L 80-99 FL Mean Corpuscular Hemoglobin 24 L 25-34 PG Mean Corpuscular Hemoglobin Concent 31 L 32-36 G/DL Red Cell Distribution Width 16.1 H 10.0-14.5 % Platelet Count 231 130-400 10^3/uL Mean Platelet Volume 9.8 7.4-10.4 FL Neutrophils (%) (Auto) 60 42-75 % Lymphocytes (%) (Auto) 23 12-44 % Monocytes (%) (Auto) 11 0-12 % Eosinophils (%) (Auto) 5 0-10 % Basophils (%) (Auto) 1 0-10 % Neutrophils # (Auto) 2.5 1.8-7.8 X 10^3 Lymphocytes # (Auto) 1.0 1.0-4.0 X 10^3 Monocytes # (Auto) 0.5 0.0-1.0 X 10^3 Eosinophils # (Auto) 0.2 0.0-0.3 10^3/uL Basophils # (Auto) 0.0 0.0-0.1 10^3/uL Sodium Level 137 135-145 MMOL/L Potassium Level 4.5 3.6-5.0 MMOL/L Chloride Level 108 H 98-107 MMOL/L Carbon Dioxide Level 21 21-32 MMOL/L Anion Gap 8 5-14 MMOL/L Blood Urea Nitrogen 22 H 7-18 MG/DL Creatinine 1.06 0.60-1.30 MG/DL Estimat Glomerular Filtration Rate > 60 BUN/Creatinine Ratio 21 Glucose Level 167 H 70-105 MG/DL Calcium Level 8.4 L 8.5-10.1 MG/DL Phosphorus Level 3.7 2.3-4.7 MG/DL Magnesium Level 1.9 1.8-2.4 MG/DL Triglycerides Level 89 <150 MG/DL Cholesterol Level 128 < 200 MG/DL LDL Cholesterol Direct 77 1-129 MG/DL VLDL Cholesterol 18 5-40 MG/DL HDL Cholesterol 35 L 40-60 MG/DL Urine Opiates Screen NEGATIVE NEGATIVE Urine Oxycodone Screen NEGATIVE NEGATIVE Urine Methadone Screen NEGATIVE NEGATIVE Urine Propoxyphene Screen NEGATIVE NEGATIVE Urine Barbiturates Screen NEGATIVE NEGATIVE Ur Tricyclic Antidepressants Screen NEGATIVE NEGATIVE Urine Phencyclidine Screen NEGATIVE NEGATIVE Urine Amphetamines Screen NEGATIVE NEGATIVE Urine Methamphetamines Screen NEGATIVE NEGATIVE Urine Benzodiazepines Screen NEGATIVE NEGATIVE Urine Cocaine Screen NEGATIVE NEGATIVE Urine Cannabinoids Screen NEGATIVE NEGATIVE Radiology Reviewed CXR 03/08: "Negative chest Discharge Instructions to patient/family Please see electonic discharge instructions given to patient. Discharge Medications Reviewed and agree with Discharge Medication list on patient's Discharge Instruction sheet Clinical Quality Measures AMI/AHF: ASA po Prior to arrival: No DVT/VTE Risk/Contraindication: Risk Factor Score Per Nursin RFS Level Per Nursing on Admit: 3=High Contraindications-Pharm: Other *list below* Other: Possible active bleeding Copy Copies To 1: CHITO SANTOS MD Copies To 2: GRAZYNA FUENTES MD, JULIE A MD March 09, 2017 12:04
--- NOTE | 2017-03-09 12:08 | Discharge Instructions ---
Discharge [facility] Discharge Medications New, Converted or Re-Newed RX: Other Continued Medications: Albuterol Sulfate (Proventil Hfa) 6.7 Gm Hfa.aer.ad 2 PUFF IH QID PRN for SHORTNESS OF BREATH, INHALER Ferrous Sulfate (Ferrous Sulfate) 325 Mg Tablet 325 MG PO TID, TAB Insulin Determir (Levemir) 1,000 Units/10 Ml Soln 100 UNITS SQ HS, EA Loratadine (Claritin) 10 Mg Tablet 10 MG PO DAILY PRN for ALLERGIES, TAB Metformin HCl (Metformin HCl) 1,000 Mg Tablet 1000 MG PO BID, TAB Pioglitazone HCl (Pioglitazone HCl) 45 Mg Tablet 45 MG PO DAILY, TAB Pravastatin Sodium (Pravastatin Sodium) 20 Mg Tablet 20 MG PO HS, TAB Sildenafil Citrate (Viagra) 100 Mg Tablet 100 MG PO UD PRN for ED, TAB Tamsulosin HCl (Flomax) 0.4 Mg Cap 0.4 MG PO 1730, CAP Valsartan (Diovan) 40 Mg Tab 40 MG PO DAILY, TAB [Vitamin C] () 1 TAB PO TID Discontinued Medications: Aspirin (Aspirin EC) 81 Mg Tablet.dr 81 MG PO DAILY, TAB Patient Instructions Goal/Follow Up Appt: [facility] will call you on Saturday to arrange a follow up appointment with Dr Santos. Patient Instructions: Please take all meds as prescribed. [facility] For: chest pain, active bleeding from any site Activity & Diet Discharge Diet: ADA Diet Activity as Tolerated: Yes Orders-Post D/C & Referrals Pneu Vac Indicated: Yes Copy Copies To 1: CHITO SANTOS MD, JULIE A MD March 09, 2017 12:08
--- NOTE | 2017-03-09 12:20 | Cardiology Progress Note ---
Cardiology SOAP Progress Note Subjective: no cardiac complaints. Objective: I&O/Vital Signs Vital Sign - Last 12Hours 03/09/17 03/09/17 03/09/17 03/09/17 01:00 01:00 02:00 03:00 Pulse 98 96 99 94 Resp 27 23 10 B/P (MAP) 152/84 126/81 157/97 Pulse Ox 97 96 96 03/09/17 03/09/17 03/09/17 03/09/17 04:00 04:00 05:00 06:00 Pulse 80 82 81 Resp 12 12 14 B/P (MAP) 137/85 106/65 126/78 Pulse Ox 96 99 91 94 03/09/17 03/09/17 03/09/17 03/09/17 07:00 07:00 08:00 11:02 Temp 97.1 97.6 Pulse 86 87 Resp 20 B/P (MAP) 110/73 Pulse Ox 98 03/09/17 11:16 Temp 97.6 Pulse 80 Resp 16 B/P (MAP) 109/63 Pulse Ox 98 Intake and Output 03/09/17 00:00 Intake Total 660 ml Output Total 800 ml Balance -140 ml Weight (Pounds): 259 Weight (Ounces): 6.0 Weight (Calculated Kilograms): 117.956012 Constitutional: AAO x 3, well-developed, well-nourished Respiratory: No accessory muscle use, No respiratory distress, lungs clear to percussion, lungs clear to auscultation Cardiovascular: regular rate-rhythm, S1 and S2, systolic murmur (soft SASHA at card base) Gastrointestional: No tender, soft, No guarding, No rebound, audible bowel sounds Extremities: No clubbing, No cyanosis, No significant edema Neurologic/Psychiatric: oriented x 3, grossly intact, power is 5/5 both on sides Skin: No rash, No ulcerations Results/Procedures: Labs Laboratory Tests 03/08/17 20:15: Hemoglobin 8.5#L, Hematocrit 28L 03/08/17 21:50: Glucometer 150H 03/09/17 03:44: Hemoglobin 8.1L, Hematocrit 27L, White Blood Count 4.1L, Red Blood Count 3.37L, Mean Corpuscular Volume 79L, Mean Corpuscular Hemoglobin 24L, Mean Corpuscular Hemoglobin Concent 31L, Red Cell Distribution Width 16.1H, Platelet Count 231, Mean Platelet Volume 9.8, Neutrophils (%) (Auto) 60, Lymphocytes (%) (Auto) 23, Monocytes (%) (Auto) 11, Eosinophils (%) (Auto) 5, Basophils (%) (Auto) 1, Neutrophils # (Auto) 2.5, Lymphocytes # (Auto) 1.0, Monocytes # (Auto) 0.5, Eosinophils # (Auto) 0.2, Basophils # (Auto) 0.0, Sodium Level 137, Potassium Level 4.5, Chloride Level 108H, Carbon Dioxide Level 21, Anion Gap 8, Blood Urea Nitrogen 22H, Creatinine 1.06, Estimat Glomerular Filtration Rate > 60, BUN /Creatinine Ratio 21, Glucose Level 167H, Calcium Level 8.4L, Phosphorus Level 3.7, Magnesium Level 1.9, Triglycerides Level 89, Cholesterol Level 128, LDL Cholesterol Direct 77, VLDL Cholesterol 18, HDL Cholesterol 35L 03/09/17 10:15: Urine Opiates Screen NEGATIVE, Urine Oxycodone Screen NEGATIVE, Urine Methadone Screen NEGATIVE, Urine Propoxyphene Screen NEGATIVE, Urine Barbiturates Screen NEGATIVE, Ur Tricyclic Antidepressants Screen NEGATIVE, Urine Phencyclidine Screen NEGATIVE, Urine Amphetamines Screen NEGATIVE, Urine Methamphetamines Screen NEGATIVE, Urine Benzodiazepines Screen NEGATIVE, Urine Cocaine Screen NEGATIVE, Urine Cannabinoids Screen NEGATIVE 03/09/17 10:55: Glucometer 150H A/P: Assessment/Dx: chest pain, Anemia, Hepatitis C, Diabetes, Active smoking Plan: Chest discomfort: acute coronary syndrome ruled out with negative serial troponin and EKG. Likely noncardiac. smoking cessation strongly recommended once okay to be discharged as per primary team the patient will follow-up with Dr. Perez as an outpatient. Profound anemia, recurrent after recent blood transfusions. This suggest occult bleeding Chest discomfort and anemia may be due a gastric/duodenal pathology. Pt does report a h/o HH Obesity with BMI approx 35 Chronic tobacco use; smoking cessation strongly recommended DM II Hypertension CAD, as indicated by LAD calcification on CT of 02/02/16 Mild aortic root dilatation (4.3 cm arnie) on CT of January 2016 Hep C Thank you for your consultation. Please call me if you have any questions. Raina Best MD, FACP, FACC, FSCAI, FHRS, CCDS Interventional Cardiology Cardiac Electrophysiology Vascular Medicine and Endovascular Interventions Clinical Quality Measures AMI/AHF: ASA po Prior to arrival: Arnold Torres MD March 09, 2017 12:20 pm
[2017-03-09 16:52] LABS: MEAN PLATELET VOLUME 9.5 FL (7.4-10.4); RED BLOOD COUNT 4.1 10^6/uL (4.35-5.85); WHITE BLOOD COUNT 4.5 10^3/uL (4.3-11.0)
[2017-03-12 07:51] LABS: FERRITIN 5.0 L NG/ML (25.0-300.0); IPF LEVEL 3.9 % (0.0-7.2)
== END 2017-03-09 17:30 | disposition home or self-care (01) | DRG 812 ==
LOC: EDUNIT# 10:21 → ER 10:24 → ICU 11:41
PROVIDERS: ADMIT Family Medicine; ATTEND Family Medicine
DX: D50.0 Iron deficiency anemia secondary to blood loss (chronic) (principal); R07.89 Other chest pain; E11.40 Type 2 diabetes mellitus with diabetic neuropathy, unspecified; I10 Essential (primary) hypertension; I25.10 Atherosclerotic heart disease of native coronary artery without angina pectoris; B18.2 Chronic viral hepatitis C; K74.60 Unspecified cirrhosis of liver; E66.9 Obesity, unspecified; E78.5 Hyperlipidemia, unspecified; F17.210 Nicotine dependence, cigarettes, uncomplicated; Z68.37 Body mass index [BMI] 37.0-37.9, adult; Z79.4 Long term (current) use of insulin; Z79.84 Long term (current) use of oral hypoglycemic drugs
CPT/HCPCS: 36415; 71010; 76705; 80048; 80053; 80061; 80306; 82105; 82728; 82962; 83735; 83874; 84100; 84484; 85007; 85014; 85018; 85025; 85027; 85045; 85055; 85610; 85730; 86850; 86900; 86901; 86920; 87081; 93005; 93041

== ENCOUNTER 2017-03-11 20:58 | Emergency (ER) | payer OTHER ==
[~2017-03-11] VITALS: Ht 177.8 cm; Wt 111.1 kg
[~2017-03-11 20:58] MED LIST changes: +VITAMIN C PO
[2017-03-11] MEDS ORDERED: ONDANSETRON 4 MG/2 ML (SDV) Z0FRAN IVP ONE (21:30)
[2017-03-11] MEDS ORDERED: NS IV 1000 ML 1,000 ML IV ONE (21:30)
--- NOTE | 2017-03-11 21:36 | ED GI ---
General Chief Complaint: Abdominal/GI Problems Stated Complaint: SOB/STOMACH PAIN/BODY ACHES/NAUSEA Nursing Triage Note: PT REPORTS DIARRHEA SINCE DISCHARGE 03/09/17 Sepsis Screen: No Definite Risk Source of Information: Patient, Old Records, Other (FEMALE S.O.) History of Present Illness Time Seen By Provider: 21:18 Initial Comments MULTIPLE COMPLAINTS PT STATES "MY GUTS ON FIRE, I CAN'T STOP CRAPPING, I FEEL LIKE SHIT, MY CHEST IS TIGHT AGAIN" PT STATES SHE WAS ADMITTED TO THE HOSPITAL LAST WEEK FOR SIMILAR SYMPTOMS, STATES HE WAS FOUND TO BE ANEMIC AND RECEIVED 4 UNITS OF BLOOD AND "FELT GREAT" AFTER HE RECEIVED THE BLOOD--WAS DISMISSED ON Saturday03/09/17 AT 1700--HAS FOLLOW UP APPOINTMENT AT [facility] TOMORROW, BUT "COULDN'T WAIT THAT LONG" PT STATES THIS IS SECOND TIME IN THE LAST MONTH HE HAS HAD TO BE TRANSFUSED-- HAD 2 UNITS THE FIRST TIME PT STATES CAUSE IS NOT KNOWN--STATES HE HAS NOT HAD COLONOSCOPY OR CT DONE PT STATES HE HAS BEEN HAVING SEVERE DIARRHEA RECENTLY AND HIS STOOLS HAVE OCCASIONALLY BEEN BLACK, BUT ARE BROWN TODAY STATES PRIOR TO BEING DISMISSED ON SATURDAY, HE HAD 2 FORMED BROWN STOOLS, BUT HAS HAD AT LEAST 20 STOOLS IN THE LAST 24 HOURS C/O NAUSEA, NO VOMITING HAS OCCASIONAL SWEATS C/O BILATERAL LOWER BACK/FLANK PAIN NO DIFFICULTY URINATING, AND VOIDING A NORMAL AMOUNT PT LAST DRANK ALCOHOL 2 WEEKS AGO PCP: DR. SANTOS AT [facility] Allergies and Home Medications Allergies Coded Allergies: No Known Drug Allergies (Unverified , 08/11/12) Home Medications Albuterol Sulfate 6.7 Gm Hfa.aer.ad, 2 PUFF IH QID PRN for SHORTNESS OF BREATH, (Reported) Ciprofloxacin HCl 500 Mg Tablet, 500 MG PO BID, #20 Prescribed by: TY GILES on 03/11/172336 Dicyclomine HCl 10 Mg Capsule, 10 MG PO Q6H PRN for ABDOMINAL PAIN, #15 Prescribed by: TY GILES on 03/11/172336 Ferrous Sulfate 325 Mg Tablet, 325 MG PO TID, (Reported) Hyoscyamine Sulfate 0.125 Mg Tab.subl, 1-2 TAB SL Q4H, #10 Prescribed by: TY GILES on 03/11/172336 Insulin Determir 1,000 Units/10 Ml Soln, 100 UNITS SQ HS, (Reported) Lactobacillus Acidophilus 1 Each Capsule, 2 EACH PO QID, #80 Prescribed by: TY GILES on 03/11/172336 Loratadine 10 Mg Tablet, 10 MG PO DAILY PRN for ALLERGIES, (Reported) Metformin HCl 1,000 Mg Tablet, 1,000 MG PO BID, (Reported) Metronidazole 500 Mg Tablet, 500 MG PO QID, #40 Prescribed by: TY GILES on 03/11/172336 Ondansetron 4 Mg Tab.rapdis, 4 MG PO Q4H, #10 Prescribed by: TY GILES on 03/11/172336 Pantoprazole Sodium 40 Mg Tablet.dr, 40 MG PO DAILY, #15 Prescribed by: TY GILES on 03/11/172336 Pioglitazone HCl 45 Mg Tablet, 45 MG PO DAILY, (Reported) Pravastatin Sodium 20 Mg Tablet, 20 MG PO HS, (Reported) Sildenafil Citrate 100 Mg Tablet, 100 MG PO UD PRN for ED, (Reported) Tamsulosin HCl 0.4 Mg Cap, 0.4 MG PO 1730, (Reported) Valsartan 40 Mg Tab, 40 MG PO DAILY, (Reported) [Vitamin C] , 1 TAB PO TID, (Reported) Review of Systems Constitutional: see HPI, diaphoresis EENTM: No Blurred Vision, No Eye Pain, Other (EYES MATTED) Respiratory: No Symptoms Reported, Denies Cough, Denies Orthopnea, Denies Shortness of Air Cardiovascular: See HPI, Chest Pain, Denies Edema, Denies Irregular Heart Rate , Denies Lightheadedness, Denies Palpitations, Denies Syncope Gastrointestinal: See HPI, Abdominal Pain, Diarrhea, Nausea, Denies Vomiting Genitourinary: No Symptoms Reported Musculoskeletal: see HPI, back pain Skin: no symptoms reported Psychiatric/Neurological: No Symptoms Reported Endocrine: No Symptoms Reported Hematologic/Lymphatic: See HPI Past Tbounhs-Ewktuy-Ywdvnk Hx Patient Social History Alcohol Use: Occasionally Uses (HISTORY OF ABUSE--PT STATES "I WAS AN ALCOHOLIC '--BUT NOW I ONLY DRINK A 6 PACK ON THE WEEKEND" ) Recreational Drug Use: Yes (+IV DRUG USE--METH, COCAINE. ALSO THC USE) Drug of Choice: HISTORY OF COCAINE, METH, AND MARIJUANA Smoking Status: Current Everyday Smoker (1 PPD) Type Used: Cigarettes 2nd Hand Smoke Exposure: Yes Recent Foreign Travel: No Contact w/Someone Who Travel: No Recent Infectious Disease Expo: No Recent Hopitalizations: Yes (03/09/17) Immunizations Up To Date Tetanus Booster (TDap): Unknown Date of Pneumonia Vaccine: February 19, 2007 Seasonal Allergies Seasonal Allergies: Yes Surgeries HX Surgeries: Yes (EGD/COLONSCOPY; COLON POLYPS REMOVED) Respiratory Hx Respiratory Disorders: Yes (sleep apnea, used to use cpap) Respiratory Disorders: Sleep Apnea Cardiovascular Hx Cardiac Disorders: Yes Cardiac Disorders: Coronary Artery Disease, Heart Attack, High Cholesterol, Hypertension Neurological Hx Neurological Disorders: Yes (Presumed diabetic neuropathy of feet) Neurological Disorders: Neuropathy Reproductive System Hx Reproductive Disorders: No Sexually Transmitted Disease: No HIV/AIDS: No Genitourinary Hx Genitourinary Disorders: Yes Genitourinary Disorders: Renal Failure Gastrointestinal Hx Gastrointestinal Disorders: Yes (HEPATITIS C--NO TREATMENT) Gastrointestinal Disorders: Gastroesophageal Reflux, Hepatitis, Polyps, Hiatal Hernia Musculoskeletal Hx Musculoskeletal Disorders: No Endocrine Hx Endocrine Disorders: Yes Endocrine Disorders: Diabetes, Insulin dep HEENT HX ENT Disorders: No Cancer Hx Cancer: No Psychosocial Hx Psychiatric Problems: No Integumentary HX Skin/Integumentary Disorder: No Blood Transfusions Hx Blood Disorders: No Adverse Reaction to a Blood Tr: No Family Medical History Significant Family History: Diabetes, Hypertension Family Medial History: Asthma 19 MOTHER Cataracts 19 FATHER Diabetes mellitus Hypertension 19 FATHER 19 MOTHER Physical Exam Vital Signs VS - Last 72 Hours, by Label 03/11/17 03/11/17 21:22 23:44 Temp 98.4 98.2 Pulse 96 90 Resp 18 18 B/P (MAP) 111/78 Pulse Ox 95 96 O2 Delivery Room Air Capillary Refill : Less Than 3 Seconds General Appearance: WD/WN, no apparent distress, obese, other (CONSTANT MOVEMENTS) HEENT: PERRL/EOMI, other (POOR DENTITION/MOST TEETH MISSING) Neck: normal inspection Respiratory: normal breath sounds Cardiovascular: regular rate, rhythm Gastrointestinal: normal bowel sounds, soft, no organomegaly, no pulsatile mass , No distended, No guarding, No rebound, tenderness (MILD DIFFUSE TENDERNESS), No hernia, No mass Extremities: normal inspection Back: no CVA tenderness 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, no motor/sensory deficits, alert, normal mood/affect, oriented x 3 Skin: normal color, warm/dry Progress/Results/Core Measures Results/Orders Lab Results Laboratory Tests Test 03/11/17 21:35 Range/Units White Blood Count 6.6 4.3-11.0 10^3/uL Red Blood Count 4.45 4.35-5.85 10^6/uL Hemoglobin 11.0 L 13.3-17.7 G/DL Hematocrit 35 L 40-54 % Mean Corpuscular Volume 80 80-99 FL Mean Corpuscular Hemoglobin 25 25-34 PG Mean Corpuscular Hemoglobin Concent 31 L 32-36 G/DL Red Cell Distribution Width 17.9 H 10.0-14.5 % Platelet Count 261 130-400 10^3/uL Mean Platelet Volume 9.4 7.4-10.4 FL Neutrophils (%) (Auto) 62 42-75 % Lymphocytes (%) (Auto) 23 12-44 % Monocytes (%) (Auto) 10 0-12 % Eosinophils (%) (Auto) 4 0-10 % Basophils (%) (Auto) 1 0-10 % Neutrophils # (Auto) 4.1 1.8-7.8 X 10^3 Lymphocytes # (Auto) 1.6 1.0-4.0 X 10^3 Monocytes # (Auto) 0.7 0.0-1.0 X 10^3 Eosinophils # (Auto) 0.3 0.0-0.3 10^3/uL Basophils # (Auto) 0.0 0.0-0.1 10^3/uL Prothrombin Time 13.1 12.2-14.7 SEC INR Comment 1.0 0.8-1.4 Activated Partial Thromboplast Time 27 24-35 SEC Urine Color YELLOW Urine Clarity SLIGHTLY CLOUDY Urine pH 5 5-9 Urine Specific [place] 1.025 H 1.016-1.022 Urine Protein 2+ H NEGATIVE Urine Glucose (UA) NEGATIVE NEGATIVE Urine Ketones 1+ H NEGATIVE Urine Nitrite NEGATIVE NEGATIVE Urine Bilirubin NEGATIVE NEGATIVE Urine Urobilinogen 1 NORMAL MG/DL Urine Leukocyte Esterase 1+ H NEGATIVE Urine RBC (Auto) NEGATIVE NEGATIVE Urine RBC NONE /HPF Urine WBC 0-2 /HPF Urine Squamous Epithelial Cells 0-2 /HPF Urine Crystals NONE /LPF Urine Bacteria NEGATIVE /HPF Urine Casts NONE /LPF Urine Mucus NEGATIVE /LPF Urine Culture Indicated NO Sodium Level 139 135-145 MMOL/L Potassium Level 4.3 3.6-5.0 MMOL/L Chloride Level 107 98-107 MMOL/L Carbon Dioxide Level 20 L 21-32 MMOL/L Anion Gap 12 5-14 MMOL/L Blood Urea Nitrogen 28 H 7-18 MG/DL Creatinine 1.47 H 0.60-1.30 MG/DL Estimat Glomerular Filtration Rate 50 BUN/Creatinine Ratio 19 Glucose Level 134 H 70-105 MG/DL Calcium Level 9.7 8.5-10.1 MG/DL Magnesium Level 2.1 1.8-2.4 MG/DL Total Bilirubin 0.6 0.1-1.0 MG/DL Aspartate Amino Transf (AST/SGOT) 39 H 5-34 U/L Alanine Aminotransferase (ALT/SGPT) 46 0-55 U/L Alkaline Phosphatase 59 40-136 U/L Troponin I < 0.30 <0.30 NG/ML B-Type Natriuretic Peptide 14.6 <100.0 PG/ML Total Protein 8.7 H 6.4-8.2 G/DL Albumin 4.4 3.2-4.5 G/DL Amylase Level 72 25-125 U/L Lipase 32 8-78 U/L Urine Opiates Screen NEGATIVE NEGATIVE Urine Oxycodone Screen NEGATIVE NEGATIVE Urine Methadone Screen NEGATIVE NEGATIVE Urine Propoxyphene Screen NEGATIVE NEGATIVE Urine Barbiturates Screen NEGATIVE NEGATIVE Ur Tricyclic Antidepressants Screen NEGATIVE NEGATIVE Urine Phencyclidine Screen NEGATIVE NEGATIVE Urine Amphetamines Screen NEGATIVE NEGATIVE Urine Methamphetamines Screen NEGATIVE NEGATIVE Urine Benzodiazepines Screen NEGATIVE NEGATIVE Urine Cocaine Screen NEGATIVE NEGATIVE Urine Cannabinoids Screen NEGATIVE NEGATIVE Serum Alcohol < 10 <10 MG/DL My Orders Orders - TY GILES DO Saline Lock/Iv-Start (03/11/17 21:26) Ct Abdomen/Pelvis W (03/11/17 21:26) Alcohol (03/11/17 21:26) Amylase (03/11/17 21:26) Cbc With Automated Diff (03/11/17 21:26) Comprehensive Metabolic Panel (03/11/17 21:26) Drug Screen Stat (Urine) (03/11/17 21:26) Lipase (03/11/17 21:26) Magnesium (03/11/17 21:26) Protime With Inr (03/11/17 21:26) Partial Thromboplastin Time (03/11/17 21:26) Ua Culture If Indicated (03/11/17 21:26) Stool Culture (03/11/17 21:26) Fecal Wbc (03/11/17 21:26) Ova And Parasite Exam (03/11/17 21:26) Saline Lock/Iv-Start (03/11/17 21:26) C Difficile Ag + Toxin A/B. (03/11/17 21:26) BNP (03/11/17 21:30) Troponin I (03/11/17 21:30) Ekg Tracing (03/11/17 21:30) Monitor-Rhythm Ecg Trace Only (03/11/17 21:30) Ondansetron Injection (Zofran Injectio (03/11/17 21:30) Saline Lock/Iv-Start (03/11/17 21:30) Ns Iv 1000 Ml (Sodium Chloride 0.9%) (03/11/17 21:30) Iohexol Injection (Omnipaque 350 Mg/Ml 1 (03/11/17 22:15) Ns (Ivpb) (Sodium Chloride 0.9% Ivpb Bag (03/11/17 22:15) Ciprofloxacin Tablet (Cipro Tablet) (03/11/17 23:45) Metronidazole Tablet (Flagyl Tablet) (03/11/17 23:45) Pantoprazole Tablet (Protonix Tablet) (03/11/17 23:45) Medications Given in ED Current Medications Medications Dose Ordered Sig/Winter Route Start Time Stop Time Status Last Admin Dose Admin Iohexol 100 ml ONCE ONCE IV 03/11/17 22:15 03/11/17 22:16 DC 03/11/17 22:06 100 ML Metronidazole 500 mg ONCE ONCE PO 03/11/17 23:45 03/11/17 23:45 DC 03/11/17 23:41 500 MG Ondansetron HCl 4 mg ONCE ONCE IVP 03/11/17 21:30 03/11/17 21:47 DC 03/11/17 21:54 4 MG Pantoprazole Sodium 40 mg ONCE ONCE PO 03/11/17 23:45 03/11/17 23:45 DC 03/11/17 23:41 40 MG Sodium Chloride 100 ml ONCE ONCE IV 03/11/17 22:15 03/11/17 22:16 DC 03/11/17 22:06 80 ML Sodium Chloride 1,000 ml @ 0 mls/hr Q0M ONCE IV 03/11/17 21:30 03/11/17 21:47 DC 03/11/17 21:54 0 MLS/HR Vital Signs/I&O Vital Sign - Last 12Hours 03/11/17 03/11/17 21:22 23:44 Temp 98.4 98.2 Pulse 96 90 Resp 18 18 B/P (MAP) 111/78 Pulse Ox 95 96 O2 Delivery Room Air Intake and Output 03/12/17 00:00 Intake Total 1000 ml Balance 1000 ml Blood Pressure Mean: 89 Progress Note : Progress Note HAD 1 STOOL DURING ER STAY--SENT TO LAB NO VOMITING DURING ER STAY FEELS BETTER AT DISMISSAL Diagnostic Imaging Comments CT ABDOMEN/PELVIS--SUSPECTED MURAL THICKENING OF SIGMOID COLON, NON-SPECIFIC FINDINGS AT BLADDER WALL, DISTENDED GB AND WALL THICKENING, AND OTHER NON- SPECIFIC FINDINGS--PER [facility] VIA FAX @ 1500 Departure Impression Impression: Primary Impression: Colitis Additional Impressions: Mild dehydration POSSIBLE GALL BLADDER DISEASE Disposition: HOME, SELF-CARE Condition: Improved Departure-Patient Inst. Referrals: CHITO SANTOS MD (PCP/Family) Primary Care Physician Patient Instructions: Dehydration, Adult (DC), Microscopic Colitis Add. Discharge Instructions: CLEAR LIQUIDS--WATER, BROTH, JELLO, GATORADE BRATS DIET--BANANAS, RICE, APPLESAUCE, TOAST, SALTINES FO[place] [facility] [place]UR[place] C[place] All discharge instructions reviewed with patient and/or family. Voiced understanding. Scripts Ondansetron (Zofran Odt) 4 Mg Tab.rapdis 4 MG PO Q4H for Nausea/Vomiting, #10 TAB Prov: CHAN,TY K DO 03/11/17 Pantoprazole Sodium (Protonix) 40 Mg Tablet.dr 40 MG PO DAILY, #15 TAB Prov: CHAN,TY K DO 03/11/17 Hyoscyamine Sulfate (Levsin-Sl) 0.125 Mg Tab.subl 1-2 TAB SL Q4H for Abdominal Pain, #10 TAB Prov: CHAN,TY K DO 03/11/17 Metronidazole (Flagyl) 500 Mg Tablet 500 MG PO QID for FOR INFECTION, #40 TAB Prov: CHAN,TY K DO 03/11/17 Ciprofloxacin HCl (Cipro) 500 Mg Tablet 500 MG PO BID, #20 TAB Prov: TY GILES DO 03/11/17 Dicyclomine HCl (Bentyl) 10 Mg Capsule 10 MG PO Q6H Y for ABDOMINAL PAIN, #15 CAP Prov: TY GILES DO 03/11/17 Lactobacillus Acidophilus (Acidophilus) 1 Each Capsule 2 EACH PO QID, #80 CAP Prov: TY GILES DO 03/11/17 TY GILES DO March 11, 2017 21:36
[2017-03-11 21:46] LABS: BASOPHILS % (AUTO) 1 % (0-10); EOSINOPHILS # (AUTO) 0.3 10^3/uL (0.0-0.3); EOSINOPHILS % (AUTO) 4 % (0-10); LYMPHOCYTES # (AUTO) 1.6 X 10^3 (1.0-4.0); LYMPHOCYTES % (AUTO) 23 % (12-44); MEAN CORPUSCULAR HEMOGLOBIN 25 PG (25-34); MEAN CORPUSCULAR HGB CONC 31 G/DL (32-36); MEAN CORPUSCULAR VOLUME 80 FL (80-99); MEAN PLATELET VOLUME 9.4 FL (7.4-10.4); MONOCYTES # (AUTO) 0.7 X 10^3 (0.0-1.0); MONOCYTES % (AUTO) 10 % (0-12); NEUTROPHILS # (AUTO) 4.1 X 10^3 (1.8-7.8); NEUTROPHILS % (AUTO) 62 % (42-75); PLATELET COUNT 261 10^3/uL (130-400); RED BLOOD COUNT 4.45 10^6/uL (4.35-5.85); RED CELL DISTRIBUTION WIDTH 17.9 % (10.0-14.5); WHITE BLOOD COUNT 6.6 10^3/uL (4.3-11.0)
[2017-03-11 21:47] LABS: BILIRUBIN,URINE NEGATIVE (NEGATIVE); KETONES,URINE 1+ (NEGATIVE); LEUKOCYTE ESTERASE ,URINE 1+ (NEGATIVE); NITRITE,URINE NEGATIVE (NEGATIVE); PH,URINE 5 (5-9); PROTEIN,URINE 2+ (NEGATIVE); UROBILINOGEN,URINE 1 MG/DL (NORMAL)
[2017-03-11 21:58] LABS: PROTHROMBIN TIME PATIENT 13.1 SEC (12.2-14.7)
[2017-03-11 22:01] LABS: SQUAMOUS EPITHELIAL CELL,UR 0-2 /HPF; WBC,URINE 0-2 /HPF
[2017-03-11 22:09] LABS: ALANINE AMINOTRANSFERASE 46 U/L (0-55); ALBUMIN 4.4 G/DL (3.2-4.5); AMYLASE 72 U/L (25-125); ANION GAP 12 MMOL/L (5-14); ASPARTATE AMINO TRANSFERASE 39 U/L (5-34); BILIRUBIN,TOTAL 0.6 MG/DL (0.1-1.0); BLOOD UREA NITROGEN 28 MG/DL (7-18); BUN/CREATININE RATIO 19; CALCIUM 9.7 MG/DL (8.5-10.1); CARBON DIOXIDE 20 MMOL/L (21-32); CHLORIDE 107 MMOL/L (98-107); CREATININE SERUM 1.47 MG/DL (0.60-1.30); GFR ESTIMATED 50; GLUCOSE 134 MG/DL (70-105); LIPASE 32 U/L (8-78); MAGNESIUM 2.1 MG/DL (1.8-2.4); POTASSIUM 4.3 MMOL/L (3.6-5.0); SODIUM 139 MMOL/L (135-145); TOTAL PROTEIN 8.7 G/DL (6.4-8.2)
[2017-03-11 22:15] LABS: TROPONIN I < 0.30 NG/ML (<0.30)
[2017-03-11] MEDS ORDERED: NS 100 ML (IVPB) BAG IV ONE (22:15)
[2017-03-11] MEDS ORDERED: IOHEXOL 350 MG/ML 100 ML (OMNIPAQUE 350) VIAL IV ONE (22:15)
[2017-03-11 22:20] LABS: ALCOHOL < 10 MG/DL (<10)
[2017-03-11] MEDS ORDERED: CIPR-225 PO (23:37)
[2017-03-11] MEDS ORDERED: METR500T PO (23:37)
[2017-03-11] MEDS ORDERED: HYOS0.1283 SL (23:37)
[2017-03-11] MEDS ORDERED: LACT1CAP8 PO (23:37)
[2017-03-11] MEDS ORDERED: ONDA4TAB8 PO (23:37)
[2017-03-11] MEDS ORDERED: PANT40TA2 PO (23:37)
[2017-03-11] MEDS ORDERED: DICY10CA59 PO (23:37)
[2017-03-11 23:44] VITALS: BP 126/81
[2017-03-11] MEDS ORDERED: CIPROFLOXACIN 500 MG (CIPRO) TABLET PO SCH (23:45)
[2017-03-11] MEDS ORDERED: metroNIDAZOLE 500 MG (FLAGYL) TAB PO ONE (23:45)
[2017-03-11] MEDS ORDERED: PANTOPRAZOLE 40 MG (PROTONIX) TAB PO ONE (23:45)
--- NOTE | 2017-03-12 07:36 | Diagnostic Imaging Report ---
PROCEDURE: CT abdomen and pelvis with contrast. TECHNIQUE: Multiple contiguous axial images were obtained through the abdomen and pelvis after administration of intravenous contrast. INDICATION: Diarrhea. Anemia. COMPARISON: CT chest and abdomen without and with IV contrast 02/02/2016. FINDINGS: Cirrhotic configuration of the liver. The gallbladder, pancreas, spleen, adrenals, kidneys and collecting systems are unremarkable. Negative appendix. Colonic diverticulosis. There appears to be focal wall thickening within the proximal sigmoid colon. This is in a region of numerous diverticuli but demonstrates no adjacent mesenteric inflammatory changes. Mildly prominent but subcentimeter left external iliac chain lymph nodes. There is a small cystic-appearing region measuring 1.3 cm in the anterior, superior bladder wall with soft tissue attenuation extending along the midline superiorly. No free intraperitoneal air or fluid. No evidence of bowel obstruction. No acute osseous findings. IMPRESSION: 1. Apparent wall thickening in the proximal sigmoid colon on this noncontrast exam. This is in a region of numerous diverticuli. There are no regional mesenteric inflammatory changes. A mass cannot be excluded. Recommend colonoscopy for further evaluation. 2. Cystic appearing region in the bladder wall may represent a urachal remnant. Again, a mass cannot be excluded. This could be better evaluated with cystoscopy, possibly CT urogram. 3. Cirrhotic configuration of the liver. Dictated by: Dictated on workstation # [id number]
== END 2017-03-11 23:44 | disposition home or self-care (01) ==
LOC: EDUNIT# 20:58 → ER 21:00
DX: K52.9 Noninfective gastroenteritis and colitis, unspecified (principal); K57.30 Diverticulosis of large intestine without perforation or abscess without bleeding; N32.9 Bladder disorder, unspecified; I25.10 Atherosclerotic heart disease of native coronary artery without angina pectoris; I10 Essential (primary) hypertension; E11.9 Type 2 diabetes mellitus without complications; I25.2 Old myocardial infarction; B19.20 Unspecified viral hepatitis C without hepatic coma; Z79.4 Long term (current) use of insulin; Z79.84 Long term (current) use of oral hypoglycemic drugs; Z79.899 Other long term (current) drug therapy
CPT/HCPCS: 36415; 74177; 80053; 80306; 80320; 81000; 82150; 83690; 83735; 83880; 84484; 85025; 85610; 85730; 87045; 87046; 87177; 87324; 87328; 87329; 87449; 89055; 93005; 93041

== ENCOUNTER 2017-04-10 05:37 | Outpatient (CLI) | payer OTHER ==
[~2017-04-10] VITALS: Ht 177.8 cm; Wt 111.3 kg
[~2017-04-10 05:37] MED LIST changes: +CIPR-225 PO; +DICY10CA59 PO; +HYOS0.1283 SL; +LACT1CAP8 PO; +METR500T PO; +ONDA4TAB8 PO; -PIOG45TA16 PO; +PIOG45TA18 PO
== END 2017-04-10 11:23 ==
LOC: PREOP 05:37
PROVIDERS: ATTEND Surgery
DX: Z01.818 Encounter for other preprocedural examination (principal); D50.9 Iron deficiency anemia, unspecified

== ENCOUNTER 2017-04-12 12:04 | Day surgery (SDC) | payer OTHER ==
[~2017-04-12] VITALS: Ht 177.8 cm; Wt 111.3 kg
--- OUTSIDE RECORDS SUMMARY | 2017-04-12 12:11 | XMS REPORT | Continuity of Care Document ---
Author Author 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 08/11/2012 Ot 607.83 EDEMA OF PENIS 09/15/2012 NIMISHA MORIN DO 250.02 DIABETES II UNCONTROLLED (UNCOMPLICATED) 09/15/2012 NIMISHA MORIN DO 401.1 BENIGN ESSENTIAL HYPERTENSION 09/15/2012 NIMISHA MORIN DO V65.42 COUNSELING - SMOKING CESSATION 09/15/2012 250.02 DIABETES II UNCONTROLLED (UNCOMPLICATED) 09/15/2012 401.1 BENIGN ESSENTIAL HYPERTENSION 09/15/2012 V65.42 COUNSELING - SMOKING CESSATION 09/15/2012 NIMISHA MORIN DO 250.02 DIABETES II UNCONTROLLED (UNCOMPLICATED) 09/15/2012 NIMISHA MORIN DO 401.1 BENIGN ESSENTIAL HYPERTENSION 09/15/2012 NIMISHA MORIN DO V65.42 COUNSELING - SMOKING CESSATION 09/15/2012 250.02 DIABETES MELLITUS TYPE 2 - UNCOMPLICATED, UNCONTROLLED 09/15/2012 401.1 ESSENTIAL HYPERTENSION BENIGN 09/15/2012 V65.42 Patient Education - Alcohol 09/15/2012 250.02 DIABETES MELLITUS TYPE 2 - UNCOMPLICATED, UNCONTROLLED 09/15/2012 401.1 ESSENTIAL HYPERTENSION BENIGN 09/15/2012 V65.42 Patient Education - Alcohol 09/15/2012 250.02 DIABETES MELLITUS TYPE 2 - UNCOMPLICATED, UNCONTROLLED 09/15/2012 401.1 ESSENTIAL HYPERTENSION BENIGN 09/15/2012 V65.42 Patient Education - Alcohol 09/15/2012 GABBI DDS, DOUGLAS Barrett 250.02 DIABETES MELLITUS TYPE 2 - UNCOMPLICATED , UNCONTROLLED 09/15/2012 GABBI DDS, DOUGLAS Barrtet 401.1 ESSENTIAL HYPERTENSION BENIGN 09/15/2012 GABBI DDS, DOUGLAS Barrett V65.42 Patient Education - Alcohol 09/15/2012 MORIN DO NIMISHA K 250.02 DIABETES MELLITUS TYPE 2 - UNCOMPLICATED, UNCONTROLLED 09/15/2012 MORIN DO NIMISHA K 401.1 ESSENTIAL HYPERTENSION BENIGN 09/15/2012 MORIN DO NIMISHA K V65.42 Patient Education - Alcohol 09/15/2012 MORIN DO, NIMISHA K 250.02 DIABETES MELLITUS TYPE 2 - UNCOMPLICATED, UNCONTROLLED 09/15/2012 MORIN DO, NIMISHA K 401.1 ESSENTIAL HYPERTENSION BENIGN 09/15/2012 MORIN DO, NIMISHA K V65.42 Patient Education - Alcohol 09/15/2012 MORIN DO, NIMISHA K 250.02 DIABETES MELLITUS TYPE 2 - UNCOMPLICATED, UNCONTROLLED 09/15/2012 MORIN DO NIMISHA K 401.1 ESSENTIAL HYPERTENSION BENIGN 09/15/2012 MIKEL LEI NIMISHA K V65.42 Patient Education - Alcohol 09/15/2012 MORIN DO, NIMISHA K 250.02 DIABETES MELLITUS TYPE 2 - UNCOMPLICATED, UNCONTROLLED 09/15/2012 MORIN DO, NIMISHA K 401.1 ESSENTIAL HYPERTENSION BENIGN 09/15/2012 MORIN DO, NIMISHA K V65.42 Patient Education - Alcohol 09/15/2012 MORIN DO, NIMISHA K 250.02 DIABETES MELLITUS TYPE 2 - UNCOMPLICATED, UNCONTROLLED 09/15/2012 MORIN DO, NIMISHA K 401.1 ESSENTIAL HYPERTENSION BENIGN 09/15/2012 MORIN DO NIMISHA K V65.42 Patient Education - Alcohol 09/15/2012 MIKEL LEI NIMISHA K 250.02 DIABETES II UNCONTROLLED (UNCOMPLICATED) 09/15/2012 MORIN DO, NIMISHA K 401.1 BENIGN ESSENTIAL HYPERTENSION 09/15/2012 MORIN DO, NIMISHA K V65.42 COUNSELING - SMOKING CESSATION 09/16/2012 MIKEL LEI NIMISHA K 790.6 ABNORMAL LFT (LIVER FUNCTION TEST) 09/16/2012 790.6 ABNORMAL LFT (LIVER FUNCTION TEST) 09/16/2012 MIKEL LEI NIMISHA K 790.6 ABNORMAL LFT (LIVER FUNCTION TEST) 09/16/2012 790.6 ABNORMAL LFT (LIVER FUNCTION TEST) 09/16/2012 790.6 ABNORMAL LFT (LIVER FUNCTION TEST) 09/16/2012 790.6 ABNORMAL LFT (LIVER FUNCTION TEST) 09/16/2012 DOUGLAS SEO DDS 790.6 ABNORMAL LFT (LIVER FUNCTION TEST) 09/16/2012 MORIN DO, NIMISHA K 790.6 ABNORMAL LFT (LIVER FUNCTION TEST) 09/16/2012 MORIN DO, NIMISHA K 790.6 ABNORMAL LFT (LIVER FUNCTION TEST) 09/16/2012 MORIN DO, NIMISHA K 790.6 ABNORMAL LFT (LIVER FUNCTION TEST) 09/16/2012 MORIN DO, NIMISHA K 790.6 ABNORMAL LFT (LIVER FUNCTION TEST) 09/16/2012 MORIN DO, NIMISHA K 790.6 ABNORMAL LFT (LIVER FUNCTION TEST) 09/16/2012 MORIN DO, NMIISHA K 790.6 ABNORMAL LFT (LIVER FUNCTION TEST) 09/29/2012 MORIN DO, NIMISHA K 250.00 DIABETES MELLITUS TYPE 2 09/29/2012 250.00 DIABETES MELLITUS TYPE 2 09/29/2012 MORIN DO, NIMISHA K 250.00 DIABETES MELLITUS TYPE 2 09/29/2012 250.00 DIABETES MELLITUS TYPE 2 09/29/2012 250.00 DIABETES MELLITUS TYPE 2 09/29/2012 250.00 DIABETES MELLITUS TYPE 2 09/29/2012 DOUGLAS SEO DDS 250.00 DIABETES MELLITUS TYPE 2 09/29/2012 MORIN DO, NIMISHA K 250.00 DIABETES MELLITUS TYPE 2 09/29/2012 MORIN DO, NIMISHA K 250.00 DIABETES MELLITUS TYPE 2 09/29/2012 MORIN DO, NIMISHA K 250.00 DIABETES MELLITUS TYPE 2 09/29/2012 MORIN DO, NIMISHA K 250.00 DIABETES MELLITUS TYPE 2 09/29/2012 MORIN DO, NIMISHA K 250.00 DIABETES MELLITUS TYPE 2 10/16/2012 302.72 PSYCHOSEXUAL DYSFUNCTION WITH INHIBITED SEXUAL EXCITEMENT 10/16/2012 MORIN DO, NIMISHA K 302.72 PSYCHOSEXUAL DYSFUNCTION WITH INHIBITED SEXUAL EXCITEMENT 10/16/2012 302.72 PSYCHOSEXUAL DYSFUNCTION WITH INHIBITED SEXUAL EXCITEMENT 10/16/2012 302.72 PSYCHOSEXUAL DYSFUNCTION WITH INHIBITED SEXUAL EXCITEMENT 10/16/2012 302.72 PSYCHOSEXUAL DYSFUNCTION WITH INHIBITED SEXUAL EXCITEMENT 10/16/2012 DOUGLAS SEO DDS 302.72 PSYCHOSEXUAL DYSFUNCTION WITH INHIBITED SEXUAL EXCITEMENT 10/16/2012 MORIN DO, NIMISHA K 302.72 PSYCHOSEXUAL DYSFUNCTION WITH INHIBITED SEXUAL EXCITEMENT 10/16/2012 MORIN DO, NIMISHA K 302.72 PSYCHOSEXUAL DYSFUNCTION WITH INHIBITED SEXUAL EXCITEMENT 10/16/2012 MORIN DO, NIMISHA K 302.72 PSYCHOSEXUAL DYSFUNCTION WITH INHIBITED SEXUAL EXCITEMENT 10/16/2012 MORIN DO, NIMISHA K 302.72 PSYCHOSEXUAL DYSFUNCTION WITH INHIBITED SEXUAL EXCITEMENT 10/16/2012 MORIN DO, NIMISHA K 302.72 PSYCHOSEXUAL DYSFUNCTION WITH INHIBITED SEXUAL EXCITEMENT 11/14/2012 MORIN DO, NIMISHA K V70.5 HEALTH EXAMINATION OF DEFINED SUBPOPULATIONS 11/14/2012 V70.5 HEALTH EXAMINATION OF DEFINED SUBPOPULATIONS 11/14/2012 V70.5 HEALTH EXAMINATION OF DEFINED SUBPOPULATIONS 11/14/2012 V70.5 HEALTH EXAMINATION OF DEFINED SUBPOPULATIONS 11/14/2012 DOUGLAS SEO DDS V70.5 HEALTH EXAMINATION OF DEFINED SUBPOPULATIONS 11/14/2012 MORIN DO, NIMISHA K V70.5 HEALTH EXAMINATION OF DEFINED SUBPOPULATIONS 11/14/2012 MORIN DO, NIMISHA K V70.5 HEALTH EXAMINATION OF DEFINED SUBPOPULATIONS 11/14/2012 MORIN DO, NIMISHA K V70.5 HEALTH EXAMINATION OF DEFINED SUBPOPULATIONS 11/14/2012 MORIN DO, NIMISHA K V70.5 HEALTH EXAMINATION OF DEFINED SUBPOPULATIONS 11/14/2012 MORIN DO, NIMISHA K V70.5 HEALTH EXAMINATION OF DEFINED SUBPOPULATIONS 12/16/2012 461.9 SINUSITIS ACUTE 12/16/2012 461.9 SINUSITIS ACUTE 12/16/2012 461.9 SINUSITIS ACUTE 12/16/2012 DOUGLAS SEO DDS 461.9 SINUSITIS ACUTE 12/16/2012 MORIN DO, NIMISHA K 461.9 SINUSITIS ACUTE 12/16/2012 MORIN DO, NIMISHA K 461.9 SINUSITIS ACUTE 12/16/2012 MORIN DO, NIMISHA K 461.9 SINUSITIS ACUTE 12/16/2012 MORIN DO, NIMISHA K 461.9 SINUSITIS ACUTE 12/16/2012 MORIN DO, NIMISHA K 461.9 SINUSITIS ACUTE 02/22/2013 070.70 HEPATITIS C, UNSPEC 02/22/2013 070.70 HEPATITIS C, UNSPEC 02/22/2013 DOUGLAS SEO DDS 070.70 HEPATITIS C, UNSPEC 02/22/2013 MORIN DO, NIMISHA K 070.70 HEPATITIS C, UNSPEC 02/22/2013 MORIN DO, NIMISHA K 070.70 HEPATITIS C, UNSPEC 02/22/2013 MORIN DO, NIMISHA K 070.70 HEPATITIS C, UNSPEC 02/22/2013 MORIN DO, NIMISHA K 070.70 HEPATITIS C, UNSPEC 02/22/2013 MORIN DO, NIMISHA K 070.70 HEPATITIS C, UNSPEC 02/25/2013 726.32 LATERAL EPICONDYLITIS [place] REGION 02/25/2013 GABBI DDSDOUGLAS 726.32 LATERAL EPICONDYLITIS [place] REG[place] 02/25/2013 MORIN DO, NIMISHA K 726.32 LATERAL EPICONDYLITIS ELB[place] REGION 02/25/2013 MORIN DO, NIMISHA K 726.32 LATERAL EPICONDYLITIS ELBOW REGION 02/25/2013 MORIN DO, NIMISHA K 726.32 LATERAL EPICONDYLITIS ELBOW REGION 02/25/2013 MORIN DO, NIMISHA K 726.32 LATERAL EPICONDYLITIS ELBOW REGION 02/25/2013 MORIN DO, NIMISHA K 726.32 LATERAL EPICONDYLITIS ELB[place] REGION 07/07/2013 MORIN DO, NIMISHA K 466.0 BRONCHITIS, ACUTE 07/07/2013 MORIN DO, NIMISHA K 466.0 BRONCHITIS, ACUTE 07/07/2013 MORIN DO, NIMISHA K 466.0 BRONCHITIS, ACUTE 07/07/2013 MORIN DO, NIMISHA K 466.0 BRONCHITIS, ACUTE 07/07/2013 MORIN DO, NIMISHA K 466.0 BRONCHITIS, ACUTE 07/28/2013 MORIN DO, NIMISHA K 276.51 DEHYDRATION 07/28/2013 MORIN DO, NIMISHA K 564.00 UNSPECIFIED CONSTIPATION 07/28/2013 MORIN DO, NIMISHA K 276.51 DEHYDRATION 07/28/2013 MORIN DO, NIMISHA K 564.00 UNSPECIFIED CONSTIPATION 07/28/2013 MORIN DO, NIMISHA K 276.51 DEHYDRATION 07/28/2013 MORIN DO, NIMISHA K 564.00 UNSPECIFIED CONSTIPATION 07/28/2013 MORIN DO, NIMISHA K 276.51 DEHYDRATION 07/28/2013 MORIN DO, NIMISHA K 564.00 UNSPECIFIED CONSTIPATION 11/02/2013 MORIN DO, NIMISHA K 250.60 DIABETES WITH NEUROLOGICAL MANIFESTATIONS TYPE II OR UNSPECIFIED TYPE NOT STATED UNCONTROLLED 11/02/2013 MORIN DO, NIMISHA K 250.60 DIABETES WITH NEUROLOGICAL MANIFESTATIONS TYPE II OR UNSPECIFIED TYPE NOT STATED UNCONTROLLED 11/02/2013 MORIN DO, NIMISHA K 250.60 DIABETES WITH NEUROLOGICAL MANIFESTATIONS TYPE II OR UNSPECIFIED TYPE NOT STATED UNCONTROLLED 02/19/2014 NIMISHA MORIN DO K 791.0 MICROALBUMINURIA 02/19/2014 NIMISHA MORIN DO K 791.0 MICROALBUMINURIA 05/30/2015 LUCINA GOEL BONE CHAR KILN OPERATOR Ot 250.00 DIAB CHRISTIANE WO COMPL, TYPE II OR UNSPEC TY 05/30/2015 LUCINA GOEL BONE CHAR KILN OPERATOR Ot 305.1 TOBACCO USE DISORDER 05/30/2015 LUCINA GOEL BONE CHAR KILN OPERATOR Ot 466.0 ACUTE BRONCHITIS 05/30/2015 LUCINA GOEL BONE CHAR KILN OPERATOR Ot 599.0 URIN TRACT INFECTION NOS 05/30/2015 LUCINA GOEL BONE CHAR KILN OPERATOR Ot 780.79 OTH MALAISE FATIGUE 05/30/2015 LUCINA GOEL BONE CHAR KILN OPERATOR Ot V58.67 LONG-TERM (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 OF INSULIN 02/02/2016 ODILIA HOSKINS MD Ot B18.2 CHRONIC VIRAL HEPATITIS C 02/02/2016 ODILIA HOSKINS MD, Ot D50.9 IRON DEFICIENCY ANEMIA, UNSPECIFIED 02/02/2016 ODILIA HOSKINS MD Ot E11.9 TYPE 2 DIABETES MELLITUS WITHOUT COMPLIC 02/02/2016 ODILIA HOSKINS MD Ot E66.9 OBESITY, UNSPECIFIED 02/02/2016 ODILIA HOSKINS MD Ot E78.5 HYPERLIPIDEMIA, UNSPECIFIED 02/02/2016 ODILIA HOSKINS MD Ot F10.99 ALCOHOL USE, UNSP WITH UNSPECIFIED ALCOH 02/02/2016 ODILIA HOSKINS MD Ot F17.210 NICOTINE DEPENDENCE, CIGARETTES, UNCOMPL 02/02/2016 ODILIA HOSKINS MD Ot I10 ESSENTIAL (PRIMARY) HYPERTENSION 02/02/2016 ODILIA HOSKINS MD Ot Z68.38 BODY MASS INDEX (BMI) 38.0-38.9, ADULT 02/02/2016 ODILIA HOSKINS MD Ot 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 02/03/2016 ODILIA HOSKINS MD Ot D50.9 IRON DEFICIENCY ANEMIA, UNSPECIFIED 02/03/2016 ODILIA HOSKINS MD Ot D64.9 ANEMIA, UNSPECIFIED 02/03/2016 ODILIA HOSKINS MD Ot R06.02 SHORTNESS OF BREATH 03/22/2016 ANABELL ORELLANA DO Ot D64.9 ANEMIA, UNSPECIFIED 03/22/2016 ANABELL ORELLANA DO Ot Z01.818 ENCOUNTER FOR OTHER PREPROCEDURAL EXAMIN 04/09/2016 ANABELL ORELLANA DO D Ot D64.9 ANEMIA, UNSPECIFIED 04/09/2016 ORELLANA DOANABELL D Ot Z01.818 ENCOUNTER FOR OTHER PREPROCEDURAL EXAMIN 04/09/2016 ANABELL ORELLANA DO D Ot D64.9 ANEMIA, UNSPECIFIED 04/09/2016 ORELLANA DOANABELL D Ot Z01.818 ENCOUNTER FOR OTHER PREPROCEDURAL EXAMIN 04/10/2016 ANABELL ORELLANA DO D Ot D64.9 ANEMIA, UNSPECIFIED 04/10/2016 ORELLANA DOBETTINATT D Ot Z01.818 ENCOUNTER FOR OTHER PREPROCEDURAL EXAMIN 04/10/2016 ANABELL ORELLANA DO D Ot D12.8 BENIGN NEOPLASM OF RECTUM 04/10/2016 ANABELL ORELLANA DO D Ot D50.9 IRON DEFICIENCY ANEMIA, UNSPECIFIED 04/10/2016 ANABELL ORELLANA DO Ot K25.7 CHRONIC GASTRIC ULCER WITHOUT HEMORRHAGE 04/10/2016 ANABELL ORELLANA DO Ot K29.70 GASTRITIS, UNSPECIFIED, WITHOUT BLEEDING 04/10/2016 ORELLANA ANABELL LEI Ot K44.9 DIAPHRAGMATIC HERNIA WITHOUT OBSTRUCTION 04/13/2016 ANABELL ORELLANA DO D Ot D12.8 BENIGN NEOPLASM OF RECTUM 04/13/2016 ANABELL ORELLANA DO Ot D50.9 IRON DEFICIENCY ANEMIA, UNSPECIFIED 04/13/2016 ANABELL ORELLANA DO Ot K25.7 CHRONIC GASTRIC ULCER WITHOUT HEMORRHAGE 04/13/2016 ANABELL ORELLANA DO D Ot K29.70 GASTRITIS, UNSPECIFIED, WITHOUT BLEEDING 04/13/2016 ANABELL ORELLANA DO Ot K44.9 DIAPHRAGMATIC HERNIA WITHOUT OBSTRUCTION 04/30/2016 GATO ROMERO, ODILIA Correa Ot B18.2 CHRONIC VIRAL HEPATITIS C 04/30/2016 ODILIA HOSKINS MD Ot D50.9 IRON DEFICIENCY ANEMIA, UNSPECIFIED 04/30/2016 ODILIA HOSKINS MD Ot E11.9 TYPE 2 DIABETES MELLITUS WITHOUT COMPLIC 04/30/2016 GATO ROMERO, ODILIA Correa Ot E66.9 OBESITY, UNSPECIFIED 04/30/2016 ODILIA HOSKINS MD Ot E78.5 HYPERLIPIDEMIA, UNSPECIFIED 04/30/2016 ODILIA HOSKINS MD Ot F10.99 ALCOHOL USE, UNSP WITH UNSPECIFIED ALCOH 04/30/2016 ODILIA HOSKINS MD Ot F17.210 NICOTINE DEPENDENCE, CIGARETTES, UNCOMPL 04/30/2016 ODILIA HOSKINS MD Ot I10 ESSENTIAL (PRIMARY) HYPERTENSION 04/30/2016 ODILIA HOSKINS MD Ot Z68.38 BODY MASS INDEX (BMI) 38.0-38.9, ADULT 04/30/2016 ODILIA HOSKINS MD Ot 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 05/08/2016 ODILIA HOSKINS MD Ot B18.2 CHRONIC VIRAL HEPATITIS C 05/08/2016 ODILIA HOSKINS MD Ot D50.9 IRON DEFICIENCY ANEMIA, UNSPECIFIED 05/08/2016 ODILIA HOSKINS MD Ot E11.9 TYPE 2 DIABETES MELLITUS WITHOUT COMPLIC 05/08/2016 ODILIA HOSKINS MD Ot E66.9 OBESITY, UNSPECIFIED 05/08/2016 ODILIA HOSKINS MD Ot E78.5 HYPERLIPIDEMIA, UNSPECIFIED 05/08/2016 ODILIA HOSKINS MD Ot F10.99 ALCOHOL USE, UNSP WITH UNSPECIFIED ALCOH 05/08/2016 ODILIA HOSKINS MD Ot F17.210 NICOTINE DEPENDENCE, CIGARETTES, UNCOMPL 05/08/2016 ODILIA HOSKINS MD Ot I10 ESSENTIAL (PRIMARY) HYPERTENSION 05/08/2016 ODILIA HOSKINS MD Ot Z68.38 BODY MASS INDEX (BMI) 38.0-38.9, ADULT 05/08/2016 ODILIA HOSKINS MD Ot 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 05/20/2016 CLIFFORD REESE MD Ot N39.0 URINARY TRACT INFECTION, SITE NOT SPECIF 05/20/2016 CLIFFORD REESE MD Ot N40.1 ENLARGED PROSTATE WITH LOWER URINARY TRA 05/20/2016 CLIFFORD REESE MD Ot R35.0 FREQUENCY OF MICTURITION 05/21/2016 CLIFFORD REESE MD Ot N39.0 URINARY TRACT INFECTION, SITE NOT SPECIF 05/21/2016 CLIFFORD REESE MD, Ot N40.1 ENLARGED PROSTATE WITH LOWER URINARY TRA 05/21/2016 CLIFFORD REESE MD Ot R35.0 FREQUENCY OF MICTURITION 05/30/2016 ANABELL ORELLANA DO Ot D64.9 ANEMIA, UNSPECIFIED 05/30/2016 ANABELL ORELLANA DO Ot Z01.818 ENCOUNTER FOR OTHER PREPROCEDURAL EXAMIN 06/25/2016 ODILIA HOSKINS MD Ot B18.2 CHRONIC VIRAL HEPATITIS C 06/25/2016 ODILIA HOSKINS MD Ot D50.9 IRON DEFICIENCY ANEMIA, UNSPECIFIED 06/25/2016 ODILIA HOSKINS MD Ot E11.9 TYPE 2 DIABETES MELLITUS WITHOUT COMPLIC 06/25/2016 ODILIA HOSKINS MD Ot E66.9 OBESITY, UNSPECIFIED 06/25/2016 ODILIA HOSKINS MD Ot E78.5 HYPERLIPIDEMIA, UNSPECIFIED 06/25/2016 ODILIA HOSKINS MD Ot F10.99 ALCOHOL USE, UNSP WITH UNSPECIFIED ALCOH 06/25/2016 ODILIA HOSKINS MD Ot F17.210 NICOTINE DEPENDENCE, CIGARETTES, UNCOMPL 06/25/2016 ODILIA HOSKINS MD Ot I10 ESSENTIAL (PRIMARY) HYPERTENSION 06/25/2016 ODILIA HOSKINS MD Ot Z68.38 BODY MASS INDEX (BMI) 38.0-38.9, ADULT 06/25/2016 ODILIA HOSKINS MD Ot 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 06/27/2016 ODILIA HOSKINS MD Ot B18.2 CHRONIC VIRAL HEPATITIS C 06/27/2016 ODILIA HOSKINS MD Ot D50.9 IRON DEFICIENCY ANEMIA, UNSPECIFIED 06/27/2016 ODILIA HOSKINS MD Ot E11.9 TYPE 2 DIABETES MELLITUS WITHOUT COMPLIC 06/27/2016 ODILIA HOSKINS MD Ot E66.9 OBESITY, UNSPECIFIED 06/27/2016 ODILIA HOSKINS MD Ot E78.5 HYPERLIPIDEMIA, UNSPECIFIED 06/27/2016 ODILIA HOSKINS MD Ot F10.99 ALCOHOL USE, UNSP WITH UNSPECIFIED ALCOH 06/27/2016 ODILIA HOSKINS MD Ot F17.210 NICOTINE DEPENDENCE, CIGARETTES, UNCOMPL 06/27/2016 ODILIA HOSKINS MD Ot I10 ESSENTIAL (PRIMARY) HYPERTENSION 06/27/2016 ODILIA HOSKINS MD Ot Z68.38 BODY MASS INDEX (BMI) 38.0-38.9, ADULT 06/27/2016 ODILIA HOSKINS MD Ot 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 07/22/2016 SAVANA STONER MD, Ot E11.29 TYPE 2 DIABETES MELLITUS W OTH DIABETIC 07/22/2016 SAVANA STONER MD, Ot F17.210 NICOTINE DEPENDENCE, CIGARETTES, UNCOMPL 07/22/2016 SAVANA STONER MD Ot N18.9 CHRONIC KIDNEY DISEASE, UNSPECIFIED 07/22/2016 SAVANA STONER MD, Ot N43.3 HYDROCELE, UNSPECIFIED 07/22/2016 SAVANA STONER MD Ot N45.1 EPIDIDYMITIS 07/22/2016 SAVANA STONER MD Ot N50.89 OTHER SPECIFIED DISORDERS OF THE MALE GE 07/22/2016 SAVANA STONER MD, Ot 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 07/22/2016 SAVANA STONER MD, Ot Z79.899 OTHER ASSISTED (CURRENT) DRUG THERAPY 07/23/2016 SAVANA STONER MD, Ot E11.29 TYPE 2 DIABETES MELLITUS W OTH DIABETIC 07/23/2016 SAVANA STONER MD, Ot F17.210 NICOTINE DEPENDENCE, CIGARETTES, UNCOMPL 07/23/2016 SAVANA STONER MD, Ot N18.9 CHRONIC KIDNEY DISEASE, UNSPECIFIED 07/23/2016 SAVANA STONER MD Ot N43.3 HYDROCELE, UNSPECIFIED 07/23/2016 SAVANA STONER MD Ot N45.1 EPIDIDYMITIS 07/23/2016 SAVANA STONER MD Ot N50.89 OTHER SPECIFIED DISORDERS OF THE MALE GE 07/23/2016 SAVANA STONER MD, Ot 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 07/23/2016 SAVANA STONER MD, Ot 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 07/24/2016 ODILIA HOSKINS MD Ot B18.2 CHRONIC VIRAL HEPATITIS C 07/24/2016 ODILIA HOSKINS MD Ot D50.9 IRON DEFICIENCY ANEMIA, UNSPECIFIED 07/24/2016 ODILIA HOSKINS MD Ot E11.9 TYPE 2 DIABETES MELLITUS WITHOUT COMPLIC 07/24/2016 ODILIA HOSKINS MD Ot E66.9 OBESITY, UNSPECIFIED 07/24/2016 ODILIA HOSKINS MD Ot E78.5 HYPERLIPIDEMIA, UNSPECIFIED 07/24/2016 ODILIA HOSKINS MD Ot F10.99 ALCOHOL USE, UNSP WITH UNSPECIFIED ALCOH 07/24/2016 ODILIA HOSKINS MD Ot F17.210 NICOTINE DEPENDENCE, CIGARETTES, UNCOMPL 07/24/2016 ODILIA HOSKINS MD Ot I10 ESSENTIAL (PRIMARY) HYPERTENSION 07/24/2016 ODILIA HOSKINS MD Ot Z68.38 BODY MASS INDEX (BMI) 38.0-38.9, ADULT 07/24/2016 ODILIA HOSKINS MD Ot Z79.899 OTHER ASSISTED (CURRENT) DRUG THERAPY 07/25/2016 ODILIA HOSKINS MD, Ot B18.2 CHRONIC VIRAL HEPATITIS C 07/25/2016 ODILIA HOSKINS MD, Ot D50.9 IRON DEFICIENCY ANEMIA, UNSPECIFIED 07/25/2016 ODILIA HOSKINS MD Ot E11.9 TYPE 2 DIABETES MELLITUS WITHOUT COMPLIC 07/25/2016 ODILIA HOSKINS MD Ot E66.9 OBESITY, UNSPECIFIED 07/25/2016 ODILIA HOSKINS MD Ot E78.5 HYPERLIPIDEMIA, UNSPECIFIED 07/25/2016 ODILIA HOSKINS MD Ot F10.99 ALCOHOL USE, UNSP WITH UNSPECIFIED ALCOH 07/25/2016 ODILIA HOSKINS MD Ot F17.210 NICOTINE DEPENDENCE, CIGARETTES, UNCOMPL 07/25/2016 ODILIA HOSKINS MD Ot I10 ESSENTIAL (PRIMARY) HYPERTENSION 07/25/2016 ODILIA HOSKINS MD Ot Z68.38 BODY MASS INDEX (BMI) 38.0-38.9, ADULT 07/25/2016 ODILIA HOSKINS MD, Ot 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 08/06/2016 ODILIA HOSKINS MD, Ot B18.2 CHRONIC VIRAL HEPATITIS C 08/06/2016 ODILIA HOSKINS MD, Ot D50.9 IRON DEFICIENCY ANEMIA, UNSPECIFIED 08/06/2016 ODILIA HOSKINS MD Ot E11.9 TYPE 2 DIABETES MELLITUS WITHOUT COMPLIC 08/06/2016 ODILIA HOSKINS MD Ot E66.9 OBESITY, UNSPECIFIED 08/06/2016 ODILIA HOSKINS MD Ot E78.5 HYPERLIPIDEMIA, UNSPECIFIED 08/06/2016 ODILIA HOSKINS MD Ot F10.99 ALCOHOL USE, UNSP WITH UNSPECIFIED ALCOH 08/06/2016 ODILIA HOSKINS MD Ot F17.210 NICOTINE DEPENDENCE, CIGARETTES, UNCOMPL 08/06/2016 ODILIA HOSKINS MD Ot I10 ESSENTIAL (PRIMARY) HYPERTENSION 08/06/2016 ODILIA HOSKINS MD Ot Z68.38 BODY MASS INDEX (BMI) 38.0-38.9, ADULT 08/06/2016 ODILIA HOSKINS MD Ot 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 08/06/2016 ODILIA HOSKINS MD Ot D50.9 IRON DEFICIENCY ANEMIA, UNSPECIFIED 08/06/2016 ODILIA HOSKINS MD Ot D64.9 ANEMIA, UNSPECIFIED 08/06/2016 ODILIA HOSKINS MD, Ot R06.02 SHORTNESS OF BREATH 08/06/2016 ODILIA HOSKINS MD, Ot B18.2 CHRONIC VIRAL HEPATITIS C 08/06/2016 ODILIA HOSKINS MD, Ot D50.9 IRON DEFICIENCY ANEMIA, UNSPECIFIED 08/06/2016 ODILIA HOSKINS MD, Ot E11.9 TYPE 2 DIABETES MELLITUS WITHOUT COMPLIC 08/06/2016 ODILIA HOSKINS MD, Ot E66.9 OBESITY, UNSPECIFIED 08/06/2016 ODILIA HOSKINS MD, Ot E78.5 HYPERLIPIDEMIA, UNSPECIFIED 08/06/2016 ODILIA HOSKINS MD, Ot F10.99 ALCOHOL USE, UNSP WITH UNSPECIFIED ALCOH 08/06/2016 ODILIA HOSKINS MD Ot F17.210 NICOTINE DEPENDENCE, CIGARETTES, UNCOMPL 08/06/2016 ODILIA HOSKINS MD Ot I10 ESSENTIAL (PRIMARY) HYPERTENSION 08/06/2016 ODILIA HOSKINS MD, Ot Z68.38 BODY MASS INDEX (BMI) 38.0-38.9, ADULT 08/06/2016 ODILIA HOSKINS MD, Ot 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 08/06/2016 ODILIA HOSKINS MD, Ot D50.9 IRON DEFICIENCY ANEMIA, UNSPECIFIED 08/06/2016 ODILIA HOSKINS MD, Ot D64.9 ANEMIA, UNSPECIFIED 08/06/2016 ODILIA HOSKINS MD, Ot R06.02 SHORTNESS OF BREATH 08/06/2016 ODILIA HOSKINS MD, Ot D50.9 IRON DEFICIENCY ANEMIA, UNSPECIFIED 08/06/2016 ODILIA HOSKINS MD, Ot D64.9 ANEMIA, UNSPECIFIED 08/06/2016 ODILIA HOSKINS MD, Ot R06.02 SHORTNESS OF BREATH 08/07/2016 Ot 456.8 VARICES OF OTHER SITES 08/07/2016 Ot 607.83 EDEMA OF PENIS 10/22/2016 ODILIA HOSKINS MD, Ot B18.2 CHRONIC VIRAL HEPATITIS C 10/22/2016 ODILIA HOSKINS MD, Ot D50.9 IRON DEFICIENCY ANEMIA, UNSPECIFIED 10/22/2016 ODILIA HOSKINS MD, Ot E11.9 TYPE 2 DIABETES MELLITUS WITHOUT COMPLIC 10/22/2016 ODILIA HOSKINS MD, Ot E66.9 OBESITY, UNSPECIFIED 10/22/2016 ODILIA HOSKINS MD, Ot E78.5 HYPERLIPIDEMIA, UNSPECIFIED 10/22/2016 ODILIA HOSKINS MD, Ot F10.99 ALCOHOL USE, UNSP WITH UNSPECIFIED ALCOH 10/22/2016 ODILIA HOSKINS MD Ot F17.210 NICOTINE DEPENDENCE, CIGARETTES, UNCOMPL 10/22/2016 ODILIA HOSKINS MD, Ot I10 ESSENTIAL (PRIMARY) HYPERTENSION 10/22/2016 ODILIA HOSKINS MD Ot Z68.38 BODY MASS INDEX (BMI) 38.0-38.9, ADULT 10/22/2016 ODILIA HOSKINS MD Ot Z79.899 OTHER ASSISTED (CURRENT) DRUG THERAPY 02/19/2017 ALLAN ROMERO FAC, ALI FACP CCDS Ot E11.9 TYPE 2 DIABETES MELLITUS WITHOUT COMPLIC 02/19/2017 ALLAN ROMERO FACHayden, ALI FACP CCDS Ot I10 ESSENTIAL (PRIMARY) HYPERTENSION 02/19/2017 [facility] F[facility] CCDS Ot R07.89 OTHER CHEST PAIN 02/19/2017 ALLAN ROMERO [facility], ALI FACP CCDS Ot Z53.09 PROC/TRTMT NOT CARRIED OUT BECAUSE OF CO 02/19/2017 [facility] FACP CCDS Ot Z72.0 TOBACCO USE 02/19/2017 ALLAN ROMERO [facility], ALI FACP CCDS Ot Z79.4 ASSISTED (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 OF INSULIN 02/19/2017 ALLAN ROMERO [facility], ALI FACP CCDS Ot Z79.899 OTHER ASSISTED (CURRENT) DRUG THERAPY 02/19/2017 ODILIA HOSKINS MD Ot D50.9 IRON DEFICIENCY ANEMIA, UNSPECIFIED 02/19/2017 ODILIA HOSKINS MD Ot D64.9 ANEMIA, UNSPECIFIED 02/19/2017 ODILIA HOSKINS MD Ot R06.02 SHORTNESS OF BREATH 02/19/2017 ODILIA HOSKINS MD Ot B18.2 CHRONIC VIRAL HEPATITIS C 02/19/2017 ODILIA HOSKINS MD, Ot D50.9 IRON DEFICIENCY ANEMIA, UNSPECIFIED 02/19/2017 ODILIA HOSKINS MD Ot E11.9 TYPE 2 DIABETES MELLITUS WITHOUT COMPLIC 02/19/2017 ODILIA HOSKINS MD, Ot E66.9 OBESITY, UNSPECIFIED 02/19/2017 ODILIA HOSKINS MD Ot E78.5 HYPERLIPIDEMIA, UNSPECIFIED 02/19/2017 ODILIA HOSKINS MD Ot F10.99 ALCOHOL USE, UNSP WITH UNSPECIFIED ALCOH 02/19/2017 ODILIA HOSKINS MD Ot F17.210 NICOTINE DEPENDENCE, CIGARETTES, UNCOMPL 02/19/2017 ODILIA HOSKINS MD Ot I10 ESSENTIAL (PRIMARY) HYPERTENSION 02/19/2017 ODILIA HOSKINS MD Ot Z68.38 BODY MASS INDEX (BMI) 38.0-38.9, ADULT 02/19/2017 ODILIA HOSKINS MD Ot 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 02/20/2017 ODILIA HOSKINS MD Ot B18.2 CHRONIC VIRAL HEPATITIS C 02/20/2017 ODILIA HOSKINS MD Ot D50.9 IRON DEFICIENCY ANEMIA, UNSPECIFIED 02/20/2017 ODILIA HOSKINS MD Ot E11.9 TYPE 2 DIABETES MELLITUS WITHOUT COMPLIC 02/20/2017 ODILIA HOSKINS MD Ot E66.9 OBESITY, UNSPECIFIED 02/20/2017 ODILIA HOSKINS MD Ot E78.5 HYPERLIPIDEMIA, UNSPECIFIED 02/20/2017 ODILIA HOSKINS MD Ot F10.99 ALCOHOL USE, UNSP WITH UNSPECIFIED ALCOH 02/20/2017 ODILIA HOSKINS MD Ot F17.210 NICOTINE DEPENDENCE, CIGARETTES, UNCOMPL 02/20/2017 ODILIA HOSKINS MD Ot I10 ESSENTIAL (PRIMARY) HYPERTENSION 02/20/2017 ODILIA HOSKINS MD Ot Z68.38 BODY MASS INDEX (BMI) 38.0-38.9, ADULT 02/20/2017 ODILIA HOSKINS MD Ot Z79.899 OTHER ASSISTED (CURRENT) DRUG THERAPY 02/20/2017 SAVANA STONER MD Ot E11.29 TYPE 2 DIABETES MELLITUS W OTH DIABETIC 02/20/2017 SAVANA STONER MD, Ot F17.210 NICOTINE DEPENDENCE, CIGARETTES, UNCOMPL 02/20/2017 SAVANA STONER MD Ot N18.9 CHRONIC KIDNEY DISEASE, UNSPECIFIED 02/20/2017 SAVANA STONER MD Ot N43.3 HYDROCELE, UNSPECIFIED 02/20/2017 SAVANA STONER MD, Ot N45.1 EPIDIDYMITIS 02/20/2017 SAVANA STONER MD Ot N50.89 OTHER SPECIFIED DISORDERS OF THE MALE GE 02/20/2017 SAVANA STONER MD, Ot 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 02/20/2017 SAVANA STONER MD, Ot Z79.899 OTHER ASSISTED (CURRENT) DRUG THERAPY 02/21/2017 TOM ROMERO, CHITO Gavin Ot D64.9 ANEMIA, UNSPECIFIED 02/21/2017 ODILIA HOSKINS MD, Ot D50.9 IRON DEFICIENCY ANEMIA, UNSPECIFIED 02/21/2017 ODILIA HOSKINS MD Ot D64.9 ANEMIA, UNSPECIFIED 02/21/2017 ODILIA HOSKINS MD Ot R06.02 SHORTNESS OF BREATH 02/21/2017 ODILIA HOSKINS MD Ot B18.2 CHRONIC VIRAL HEPATITIS C 02/21/2017 ODILIA HOSKINS MD, Ot D50.9 IRON DEFICIENCY ANEMIA, UNSPECIFIED 02/21/2017 ODILIA HOSKINS MD Ot E11.9 TYPE 2 DIABETES MELLITUS WITHOUT COMPLIC 02/21/2017 ODILIA HOSKINS MD Ot E66.9 OBESITY, UNSPECIFIED 02/21/2017 ODILIA HOSKINS MD Ot E78.5 HYPERLIPIDEMIA, UNSPECIFIED 02/21/2017 ODILIA HOSKINS MD Ot F10.99 ALCOHOL USE, UNSP WITH UNSPECIFIED ALCOH 02/21/2017 ODILIA HOSKINS MD Ot F17.210 NICOTINE DEPENDENCE, CIGARETTES, UNCOMPL 02/21/2017 ODILIA HOSKINS MD Ot I10 ESSENTIAL (PRIMARY) HYPERTENSION 02/21/2017 ODILIA HOSKINS MD Ot Z68.38 BODY MASS INDEX (BMI) 38.0-38.9, ADULT 02/21/2017 ODILIA HOSKINS MD Ot Z79.899 OTHER ASSISTED (CURRENT) DRUG THERAPY 02/21/2017 CHITO SANTOS MD, Ot D64.9 ANEMIA, UNSPECIFIED 02/28/2017 ALLAN ROMERO FACC, REY ALVAREZP CCDS Ot E11.9 TYPE 2 DIABETES MELLITUS WITHOUT COMPLIC 02/28/2017 ALLAN ROMERO FACC, ALI FACP CCDS Ot I10 ESSENTIAL (PRIMARY) HYPERTENSION 02/28/2017 ALLAN ROMERO FACC, REY FACP CCDS Ot R07.89 OTHER CHEST PAIN 02/28/2017 ALLAN ROMERO FACC, REY FACP CCDS Ot Z53.09 PROC/TRTMT NOT CARRIED OUT BECAUSE OF CO 02/28/2017 ALLAN ROMERO FACC, REY FACP CCDS Ot Z72.0 TOBACCO USE 02/28/2017 ALLAN ROMERO FACC, REY FACP CCDS Ot Z79.4 ASSISTED (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 OF INSULIN 02/28/2017 ALLAN ROMERO FACC, REY FACP CCDS Ot 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 03/08/2017 ODILIA HOSKINS MD Ot B18.2 CHRONIC VIRAL HEPATITIS C 03/08/2017 ODILIA HOSKINS MD Ot D50.9 IRON DEFICIENCY ANEMIA, UNSPECIFIED 03/08/2017 ODILIA HOSKINS MD Ot E11.9 TYPE 2 DIABETES MELLITUS WITHOUT COMPLIC 03/08/2017 ODILIA HOSKINS MD Ot E66.9 OBESITY, UNSPECIFIED 03/08/2017 ODILIA HOSKINS MD Ot E78.5 HYPERLIPIDEMIA, UNSPECIFIED 03/08/2017 ODILIA HOSKINS MD Ot F10.99 ALCOHOL USE, UNSP WITH UNSPECIFIED ALCOH 03/08/2017 ODILIA HOSKINS MD Ot F17.210 NICOTINE DEPENDENCE, CIGARETTES, UNCOMPL 03/08/2017 ODILIA HOSKINS MD Ot I10 ESSENTIAL (PRIMARY) HYPERTENSION 03/08/2017 ODILIA HOSKINS MD, Ot Z68.38 BODY MASS INDEX (BMI) 38.0-38.9, ADULT 03/08/2017 ODILIA HOSKINS MD Ot 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 03/08/2017 CHITO SANTOS MD Ot D64.9 ANEMIA, UNSPECIFIED 03/09/2017 JILLIAN LOVE MD Ot B18.2 CHRONIC VIRAL HEPATITIS C 03/09/2017 JILLIAN LOVE MD, Ot D50.0 IRON DEFICIENCY ANEMIA SECONDARY TO BLOO 03/09/2017 JILLIAN LOVE MD, Ot E11.40 TYPE 2 DIABETES MELLITUS WITH DIABETIC N 03/09/2017 JILLIAN LOVE MD, Ot E66.9 OBESITY, UNSPECIFIED 03/09/2017 JILLIAN LOVE MD, Ot E78.5 HYPERLIPIDEMIA, UNSPECIFIED 03/09/2017 JILLIAN LOVE MD, Ot F17.210 NICOTINE DEPENDENCE, CIGARETTES, UNCOMPL 03/09/2017 JILLIAN LOVE MD Ot I10 ESSENTIAL (PRIMARY) HYPERTENSION 03/09/2017 JILLIAN LOVE MD Ot I25.10 ATHSCL HEART DISEASE OF [place] CORONARY 03/09/2017 JILLIAN LOVE MD Ot K74.60 UNSPECIFIED CIRRHOSIS OF LIVER 03/09/2017 JILLIAN LOVE MD Ot R07.89 OTHER CHEST PAIN 03/09/2017 JILLIAN LOVE MD, Ot Z68.37 BODY MASS INDEX (BMI) 37.0-37.9, ADULT 03/09/2017 JILLIAN LOVE MD, Ot Z79.4 ASSISTED (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 OF INSULIN 03/09/2017 JILLIAN LOVE MD Ot 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9 BLADDER DISORDER, UNSPECIFIED 03/11/2017 CHAN DO TY K Ot R19.7 DIARRHEA, UNSPECIFIED 03/11/2017 CHAN DO, TY K Ot 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 03/11/2017 CHAN DO TY K Ot Z79.84 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 OF ORAL HYPOGLYC 03/11/2017 CHAN DO TY K Ot Z79.899 OTHER ASSISTED (CURRENT) DRUG THERAPY 03/12/2017 ODILIA HOSKINS MD, Ot B18.2 CHRONIC VIRAL HEPATITIS C 03/12/2017 ODILIA HOSKINS MD, Ot D50.9 IRON DEFICIENCY ANEMIA, UNSPECIFIED 03/12/2017 ODILIA HOSKINS MD, Ot E11.9 TYPE 2 DIABETES MELLITUS WITHOUT COMPLIC 03/12/2017 ODILIA HOSKINS MD, Ot E66.9 OBESITY, UNSPECIFIED 03/12/2017 ODILIA HOSKINS MD, Ot E78.5 HYPERLIPIDEMIA, UNSPECIFIED 03/12/2017 ODILIA HOSKINS MD, Ot F10.99 ALCOHOL USE, UNSP WITH UNSPECIFIED ALCOH 03/12/2017 ODILIA HOSKINS MD, Ot F17.210 NICOTINE DEPENDENCE, CIGARETTES, UNCOMPL 03/12/2017 ODILIA HOSKINS MD Ot I10 ESSENTIAL (PRIMARY) HYPERTENSION 03/12/2017 ODILIA HOSKINS MD, Ot Z68.38 BODY MASS INDEX (BMI) 38.0-38.9, ADULT 03/12/2017 GATO ROMERO ODILIA Madeline Ot 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 03/12/2017 CHITO SANTOS MD, Ot D64.9 ANEMIA, UNSPECIFIED 03/12/2017 ODILIA HOSKINS MD Ot D50.9 IRON DEFICIENCY ANEMIA, UNSPECIFIED 03/12/2017 ODILIA HOSKINS MD Ot D64.9 ANEMIA, UNSPECIFIED 03/12/2017 ODILIA HOSKINS MD Ot R06.02 SHORTNESS OF BREATH 03/12/2017 ODILIA HOSKINS MD Ot B18.2 CHRONIC VIRAL HEPATITIS C 03/12/2017 ODILIA HOSKINS MD, Ot D50.9 IRON DEFICIENCY ANEMIA, UNSPECIFIED 03/12/2017 ODILIA HOSKINS MD Ot E11.9 TYPE 2 DIABETES MELLITUS WITHOUT COMPLIC 03/12/2017 ODILIA HOSKINS MD Ot E66.9 OBESITY, UNSPECIFIED 03/12/2017 ODILIA HOSKINS MD Ot E78.5 HYPERLIPIDEMIA, UNSPECIFIED 03/12/2017 ODILIA HOSKINS MD Ot F10.99 ALCOHOL USE, UNSP WITH UNSPECIFIED ALCOH 03/12/2017 ODILIA HOSKINS MD Ot F17.210 NICOTINE DEPENDENCE, CIGARETTES, UNCOMPL 03/12/2017 ODILIA HOSKINS MD Ot I10 ESSENTIAL (PRIMARY) HYPERTENSION 03/12/2017 GATO ROMERO ODILIA Madeline Ot Z68.38 BODY MASS INDEX (BMI) 38.0-38.9, ADULT 03/12/2017 GATO ROMERO ODILIA Madeline Ot 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 03/12/2017 CHITO SANTOS MD, Ot D64.9 ANEMIA, UNSPECIFIED 03/21/2017 CHITO SANTOS MD, Ot D64.9 ANEMIA, UNSPECIFIED 03/22/2017 ALLAN ROMERO FACHayden, REY FACP CCDS Ot E11.9 TYPE 2 DIABETES MELLITUS WITHOUT COMPLIC 03/22/2017 ALLAN ROMERO FACC, REY FACP CCDS Ot I10 ESSENTIAL (PRIMARY) HYPERTENSION 03/22/2017 ALLAN ROMERO FACC, REY FACP CCDS Ot R07.89 OTHER CHEST PAIN 03/22/2017 ALLAN ROMERO FACC, REY FACP CCDS Ot Z53.09 PROC/TRTMT NOT CARRIED OUT BECAUSE OF CO 03/22/2017 ALLAN ROMERO FACC, REY FACP CCDS Ot Z72.0 TOBACCO USE 03/22/2017 [facility] Z[facility].4 ASSISTED (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 OF INSULIN 03/22/2017 REY LEMUS MD, FACC [facility] CCDS Ot Z79.899 OTHER ASSISTED (CURRENT) DRUG THERAPY 04/04/2017 ODILIA HOSKINS MD Ot D50.9 IRON DEFICIENCY ANEMIA, UNSPECIFIED 04/04/2017 ODILIA HOSKINS MD Ot D64.9 ANEMIA, UNSPECIFIED 04/04/2017 ODILIA HOSKINS MD Ot R06.02 SHORTNESS OF BREATH Procedures Code Description [place] [address] ROUTINE VENIPUNCTURE 09/15/2012 OPHTH DIABETIC, EYE EXAM 09/15/2012 TING [place] 12/2011 66482 MICRO ALBUMIN-IN HOUSE 09/15/2012 48096 CMP 09/15/2012 [id number] GFR CALC (RESULT ONLY) 09/15/2012 71238 A1C (RML) 2011 34994 MICROALBUMIN 01/2012 14319 UA LONG DIP 11/14 47629 A1C (IN-HOUSE) 49205 ROUTINE VENIPUNCTURE 02/17/2013 24976 CMP 02/17/2013 13060 LIPID PANEL 02/17 [id number] GFR CALC (RESULT ONLY) 02/17/2013 18297 CPK 02/17/2013 64901 IRON SERUM 2012 40326 IRON BNDNG CAP 39766 HEPATITIS PROFILE 02/18/2013 [id number] HCV INDEX (RESULT ONLY) 02/18/2013 17329 FERRITIN 2012 [facility] (Iron,TIBC, Ferritin) 02/22/2013 48672 ROUTINE VENIPUNCTURE 02/25/2013 30293 URINE DRUG SCREEN (IN-HOUSE) 02/25/2013 81767 PT/INR 2012 62726 HIV ANTIBODIES (RML) 02/25/2013 22444 HEP B SURFACE ANTIBODY 02/25/2013 53250 HEP A ANTIBODY, IGM (RML) 02/25/2013 81305 HEP B SURFACE ANTIGEN (STATE) 02/25/2013 07846 HEP C PCR QUANT W/[place] 02/25/2013 [facility] 03/26/2013 08723 OXIMETRY 2012 37516 ROUTINE VENIPUNCTURE 07/28/2013 02146 A1C (IN-HOUSE) 21084 MICRO ALBUMIN-IN HOUSE 07/28/2013 50046 CMP 07/28/2013 12200 LIPID PANEL 07/28 29298 MICROALBUMIN 1207230 GFR CALC (RESULT ONLY) 07/28/2013 91183 CMP 11/02/2013 07242 UA LONG DIP 11/02 27242 A1C (IN-HOUSE) 73157 URINE DRUG SCREEN (IN-HOUSE) 11/02/2013 98969 ROUTINE VENIPUNCTURE 02/19/2014 61161 MICRO ALBUMIN-IN HOUSE 02/19/2014 94624 A1C (IN-HOUSE) 8F FOOT EXAM PERFORMED 02/19/2014 2717606 GFR CALC (RESULT ONLY) 02/19/2014 32031 CMP 02/19/2014 84396 EYE EXAM PERFORMED 02/22/2014 55659 MICROALBUMIN 09/2014 18288 A1C (IN-HOUSE) Results Test Result Range Capillary blood glucose measurement by glucometer (mass/volume) - 05/20/16 15: 40 Capillary blood glucose measurement by glucometer (mass/volume) 377 mg/dL 70-110 Complete urinalysis with reflex to culture - 05/20/16 15:50 Urine color determination YELLOW NRG Urine clarity determination SLIGHTLY CLOUDY NRG Urine pH measurement by test strip 5 5- 9 Specific gravity of urine by test strip 1.015 1.016-1.022 Urine protein assay by test strip, semi-quantitative 2+ NEGATIVE Urine glucose detection by automated test strip 4+ NEGATIVE Erythrocytes detection in urine sediment by light microscopy 2+ NEGATIVE Urine ketones detection by automated test strip NEGATIVE NEGATIVE Urine nitrite detection by test strip POSITIVE NEGATIVE Urine total bilirubin detection by test strip NEGATIVE NEGATIVE Urine urobilinogen measurement by automated test strip (mass/volume) 1 mg/dL NORMAL Urine leukocyte esterase detection by dipstick 3+ NEGATIVE Automated urine sediment erythrocyte count by microscopy (number/high power field) [HPF] NRG Automated urine sediment leukocyte count by microscopy (number/high power field ) [HPF] NRG Bacteria detection in urine sediment by light microscopy MODERATE NRG Crystals detection in urine sediment by light microscopy NONE NRG Casts detection in urine sediment by light microscopy NONE NRG Mucus detection in urine sediment by light microscopy NEGATIVE NRG Complete urinalysis with reflex to culture YES NRG Bacterial urine culture - 05/20/16 15:50 Bacterial urine culture [id number] NRG COLONY COUNT >100,000/ML NRG FTX;REPORTABLE SENSITIVITY REPORTED AT 1534, 05-21-16 NRG Bacterial susceptibility panel - 05/20/16 15:50 Gentamicin susceptibility test by minimum inhibitory concentration <= NRG Trimethoprim/sulfamethoxazole susceptibility test by minimum inhibitoryconcentration <= NRG Ampicillin susceptibility test by minimum inhibitory concentration <= NRG Tobramycin susceptibility test by minimum inhibitory concentration <= NRG Cefazolin susceptibility test by minimum inhibitory concentration <= NRG Ceftriaxone susceptibility test by minimum inhibitory concentration <= NRG Ampicillin/sulbactam susceptibility test by minimum inhibitory concentration <= NRG Piperacillin/tazobactam susceptibility test by minimum inhibitory concentration <= NRG Ciprofloxacin susceptibility test by minimum inhibitory concentration <= NRG Meropenem susceptibility test by minimum inhibitory concentration <= NRG Nitrofurantoin susceptibility test by minimum inhibitory concentration 32 NRG Aztreonam susceptibility test by minimum inhibitory concentration <= NRG Extended spectrum beta lactamase (ESBL) producing bacteria susceptibility test by minimum inhibitory concentration - NRG Chlamydia DNA amp probe, urine - 07/22/16 17:30 Chlamydia DNA amp probe, urine Negative Negative Urine Neisseria gonorrhoeae DNA assay - 07/22/16 17:30 Gonorrhea amp DNA-urine Negative Negative Complete urinalysis with reflex to culture - 07/22/16 17:34 Urine color determination YELLOW NRG Urine clarity determination CLEAR NRG Urine pH measurement by test strip 6.5 5 -9 Specific gravity of urine by test strip 1.005 1.016-1.022 Urine protein assay by test strip, semi-quantitative 1+ NEGATIVE Urine glucose detection by automated test strip NEGATIVE NEGATIVE Erythrocytes detection in urine sediment by light microscopy NEGATIVE NEGATIVE Urine ketones detection by automated test strip NEGATIVE NEGATIVE Urine nitrite detection by test strip NEGATIVE NEGATIVE Urine total bilirubin detection by test strip NEGATIVE NEGATIVE Urine urobilinogen measurement by automated test strip (mass/volume) NORMAL NORMAL Urine leukocyte esterase detection by dipstick 2+ NEGATIVE Automated urine sediment erythrocyte count by microscopy (number/high power field) NONE NRG Automated urine sediment leukocyte count by microscopy (number/high power field ) [HPF] NRG Bacteria detection in urine sediment by light microscopy TRACE NRG Squamous epithelial cells detection in urine sediment by light microscopy NONE NRG Crystals detection in urine sediment by light microscopy NONE NRG Casts detection in urine sediment by light microscopy NONE NRG Mucus detection in urine sediment by light microscopy NEGATIVE NRG Complete urinalysis with reflex to culture YES NRG Bacterial urine culture - 07/22/16 17:34 URINE CULTURE RESULTS <10,000/ML NRG Complete blood count (CBC) with automated white blood cell (WBC) differential - 07/22/16 17:50 Blood leukocytes automated count (number/volume) 8.7 10*3/ uL 4.3-11.0 Blood erythrocytes automated count (number/volume) 3.97 10*6 /uL 4.35-5.85 Venous blood hemoglobin measurement (mass/volume) 8.8 g/dL 13.3-17.7 Blood hematocrit (volume fraction) 30 % 40-54 Automated erythrocyte mean corpuscular volume 75 [foz_us] 80-99 Automated erythrocyte mean corpuscular hemoglobin (mass per erythrocyte) 22 pg 25-34 Automated erythrocyte mean corpuscular hemoglobin concentration measurement ( mass/volume) 30 g/dL 32-36 Automated erythrocyte distribution width ratio 15.9 % 10.0-14.5 Automated blood platelet count (count/volume) 229 10*3/uL 130-400 Automated blood platelet mean volume measurement 9.0 [foz_us ] 7.4-10.4 Automated blood neutrophils/100 leukocytes 67 % 42-75 Automated blood lymphocytes/100 leukocytes 19 % 12-44 Blood monocytes/100 leukocytes 11 % 0-12 Automated blood eosinophils/100 leukocytes 2 % 0-10 Automated blood basophils/100 leukocytes 1 % 0-10 Blood neutrophils automated count (number/volume) 5.9 10*3 1.8-7.8 Blood lymphocytes automated count (number/volume) 1.7 10*3 1.0-4.0 Blood monocytes automated count (number/volume) 1.0 10*3 0.0-1.0 Automated eosinophil count 0.2 10*3/uL 0.0-0.3 Automated blood basophil count (count/volume) 0.1 10*3/uL 0.0-0.1 Comprehensive metabolic panel - 07/22/16 17:50 Serum or plasma sodium measurement (moles/volume) 134 mmol/ L 135-145 Serum or plasma potassium measurement (moles/volume) 3.8 mmol/L 3.6-5.0 Serum or plasma chloride measurement (moles/volume) 103 mmol /L 98-107 Carbon dioxide 18 mmol/L 21-32 Serum or plasma anion gap determination (moles/volume) 13 mmol/L 5-14 Serum or plasma urea nitrogen measurement (mass/volume) 16 mg/dL 7-18 Serum or plasma creatinine measurement (mass/volume) 1.14 mg /dL 0.60-1.30 Serum or plasma urea nitrogen/creatinine mass ratio 14 NRG Serum or plasma creatinine measurement with calculation of estimated glomerular filtration rate > NRG Serum or plasma glucose measurement (mass/volume) 200 mg/dL 70-105 Serum or plasma calcium measurement (mass/volume) 8.9 mg/dL 8.5-10.1 Serum or plasma total bilirubin measurement (mass/volume) 0.3 mg/dL 0.1-1.0 Serum or plasma alkaline phosphatase measurement (enzymatic activity/volume) 77 U/L 40-136 Serum or plasma aspartate aminotransferase measurement (enzymatic activity/ volume) 34 U/L 5-34 Serum or plasma alanine aminotransferase measurement (enzymatic activity/volume ) 50 U/L 0-55 Serum or plasma protein measurement (mass/volume) 7.9 g/dL 6.4-8.2 Serum or plasma albumin measurement (mass/volume) 4.0 g/dL 3.2-4.5 Serum or plasma C reactive protein measurement (mass/volume) - 07/22/16 17:55 Serum or plasma C reactive protein measurement (mass/volume) 2.05 mg/dL 0.00-0.50 Automated blood complete blood count (hemogram) panel - 02/19/17 07:59 Blood leukocytes automated count (number/volume) 3.7 10*3/ uL 4.3-11.0 Blood erythrocytes automated count (number/volume) 2.77 10*6 /uL 4.35-5.85 Venous blood hemoglobin measurement (mass/volume) 6.4 g/dL 13.3-17.7 Blood hematocrit (volume fraction) 22 % 40-54 Automated erythrocyte mean corpuscular volume 79 [foz_us] 80-99 Automated erythrocyte mean corpuscular hemoglobin (mass per erythrocyte) 23 pg 25-34 Automated erythrocyte mean corpuscular hemoglobin concentration measurement ( mass/volume) 29 g/dL 32-36 Automated erythrocyte distribution width ratio 14.9 % 10.0-14.5 Automated blood platelet count (count/volume) 219 10*3/uL 130-400 Automated blood platelet mean volume measurement 9.0 [foz_us ] 7.4-10.4 PT panel in platelet poor plasma by coagulation assay - 02/19/17 07:59 Prothrombin time (PT) in platelet poor plasma by coagulation assay 14.0 s 12.2-14.7 INR in platelet poor plasma or blood by coagulation assay 1.1 0.8-1.4 Activated partial thromboplastin time (aPTT) in platelet poor plasma bycoagulation assay - 02/19/17 07:59 Activated partial thromboplastin time (aPTT) in platelet poor plasma bycoagulation assay 26 s 24-35 Comprehensive metabolic panel - 02/19/17 07:59 Serum or plasma sodium measurement (moles/volume) 137 mmol/ L 135-145 Serum or plasma potassium measurement (moles/volume) 4.5 mmol/L 3.6-5.0 Serum or plasma chloride measurement (moles/volume) 105 mmol /L 98-107 Carbon dioxide 24 mmol/L 21-32 Serum or plasma anion gap determination (moles/volume) 8 mmol/L 5-14 Serum or plasma urea nitrogen measurement (mass/volume) 24 mg/dL 7-18 Serum or plasma creatinine measurement (mass/volume) 1.35 mg /dL 0.60-1.30 Serum or plasma urea nitrogen/creatinine mass ratio 18 NRG Serum or plasma creatinine measurement with calculation of estimated glomerular filtration rate 55 NRG Serum or plasma glucose measurement (mass/volume) 171 mg/dL 70-105 Serum or plasma calcium measurement (mass/volume) 9.0 mg/dL 8.5-10.1 Serum or plasma total bilirubin measurement (mass/volume) 0.4 mg/dL 0.1-1.0 Serum or plasma alkaline phosphatase measurement (enzymatic activity/volume) 50 U/L 40-136 Serum or plasma aspartate aminotransferase measurement (enzymatic activity/ volume) 27 U/L 5-34 Serum or plasma alanine aminotransferase measurement (enzymatic activity/volume ) 31 U/L 0-55 Serum or plasma protein measurement (mass/volume) 7.4 g/dL 6.4-8.2 Serum or plasma albumin measurement (mass/volume) 4.0 g/dL 3.2-4.5 Lipid 1996 panel - 02/19/17 07:59 Serum or plasma triglyceride measurement (mass/volume) 137 mg/dL <150 Serum or plasma cholesterol measurement (mass/volume) 154 mg /dL < 200 Serum or plasma cholesterol in HDL measurement (mass/volume) 38 mg/dL 40-60 Cholesterol in LDL [mass/volume] in serum or plasma by direct assay 91 mg/dL 1-129 Serum or plasma cholesterol in VLDL measurement (mass/volume) 27 mg/dL 5-40 Methicillin resistant Staphylococcus aureus (MRSA) screening culture - 07:59 Methicillin resistant Staphylococcus aureus (MRSA) screening culture NEG NRG RED CELLS LEUKO REDUCED AS1 - 02/19/17 11:16 RED CELLS LEUKO REDUCED AS1 TRANSFUSED 1122 NRG Blood type T Indirect antibody screen panel - 02/19/17 11:16 ABO+Rh group BP NRG Transfusion band number [id number] NRG Blood group antibody screen NEGATIVE NRG Complete blood count (CBC) with automated white blood cell (WBC) differential - 03/08/17 10:30 Blood leukocytes automated count (number/volume) 4.2 10*3/ uL 4.3-11.0 Blood erythrocytes automated count (number/volume) 3.00 10*6 /uL 4.35-5.85 Venous blood hemoglobin measurement (mass/volume) 6.9 g/dL 13.3-17.7 Blood hematocrit (volume fraction) 24 % 40-54 Automated erythrocyte mean corpuscular volume 78 [foz_us] 80-99 Automated erythrocyte mean corpuscular hemoglobin (mass per erythrocyte) 23 pg 25-34 Automated erythrocyte mean corpuscular hemoglobin concentration measurement ( mass/volume) 29 g/dL 32-36 Automated erythrocyte distribution width ratio 16.2 % 10.0-14.5 Automated blood platelet count (count/volume) 256 10*3/uL 130-400 Automated blood platelet mean volume measurement 9.0 [foz_us ] 7.4-10.4 Automated blood neutrophils/100 leukocytes 61 % 42-75 Automated blood lymphocytes/100 leukocytes 25 % 12-44 Blood monocytes/100 leukocytes 10 % 0-12 Automated blood eosinophils/100 leukocytes 4 % 0-10 Automated blood basophils/100 leukocytes 1 % 0-10 Blood neutrophils automated count (number/volume) 2.5 10*3 1.8-7.8 Blood lymphocytes automated count (number/volume) 1.0 10*3 1.0-4.0 Blood monocytes automated count (number/volume) 0.4 10*3 0.0-1.0 Automated eosinophil count 0.2 10*3/uL 0.0-0.3 Automated blood basophil count (count/volume) 0.0 10*3/uL 0.0-0.1 Comprehensive metabolic panel - 03/08/17 10:30 Serum or plasma sodium measurement (moles/volume) 136 mmol/ L 135-145 Serum or plasma potassium measurement (moles/volume) 4.5 mmol/L 3.6-5.0 Serum or plasma chloride measurement (moles/volume) 105 mmol /L 98-107 Carbon dioxide 22 mmol/L 21-32 Serum or plasma anion gap determination (moles/volume) 9 mmol/L 5-14 Serum or plasma urea nitrogen measurement (mass/volume) 26 mg/dL 7-18 Serum or plasma creatinine measurement (mass/volume) 1.29 mg /dL 0.60-1.30 Serum or plasma urea nitrogen/creatinine mass ratio 20 NRG Serum or plasma creatinine measurement with calculation of estimated glomerular filtration rate 58 NRG Serum or plasma glucose measurement (mass/volume) 215 mg/dL 70-105 Serum or plasma calcium measurement (mass/volume) 8.8 mg/dL 8.5-10.1 Serum or plasma total bilirubin measurement (mass/volume) 0.4 mg/dL 0.1-1.0 Serum or plasma alkaline phosphatase measurement (enzymatic activity/volume) 45 U/L 40-136 Serum or plasma aspartate aminotransferase measurement (enzymatic activity/ volume) 32 U/L 5-34 Serum or plasma alanine aminotransferase measurement (enzymatic activity/volume ) 37 U/L 0-55 Serum or plasma protein measurement (mass/volume) 7.3 g/dL 6.4-8.2 Serum or plasma albumin measurement (mass/volume) 3.7 g/dL 3.2-4.5 Magnesium - 03/08/17 10:30 Magnesium 1.7 mg/dL 1.8-2.4 Serum or plasma troponin i.cardiac measurement (mass/volume) - 03/08/17 10:30 Serum or plasma troponin i.cardiac measurement (mass/volume) < ng/mL <0.30 Myoglobin, serum - 03/08/17 10:30 Myoglobin, serum 38.2 ng/mL 10.0-92.0 ANEMIA ANALYZER - 03/08/17 10:36 Blood leukocytes automated count (number/volume) 4.2 10*3/ uL 4.3-11.0 Blood erythrocytes automated count (number/volume) 3.00 10*6 /uL 4.35-5.85 Venous blood hemoglobin measurement (mass/volume) 6.9 g/dL 13.3-17.7 Blood hematocrit (volume fraction) 24 % 40-54 Automated erythrocyte mean corpuscular volume 78 [foz_us] 80-99 Automated erythrocyte mean corpuscular hemoglobin (mass per erythrocyte) 23 pg 25-34 Automated erythrocyte mean corpuscular hemoglobin concentration measurement ( mass/volume) 29 g/dL 32-36 Automated erythrocyte distribution width ratio 16.2 % 10.0-14.5 Automated blood platelet count (count/volume) 256 10*3/uL 130-400 Automated blood platelet mean volume measurement 9.0 [foz_us ] 7.4-10.4 Automated blood neutrophils/100 leukocytes 61 % 42-75 Automated blood lymphocytes/100 leukocytes 25 % 12-44 Blood monocytes/100 leukocytes 6 % NRG Automated blood eosinophils/100 leukocytes 4 % 0-10 Automated blood basophils/100 leukocytes 1 % 0-10 Blood neutrophils automated count (number/volume) 2.5 10*3 1.8-7.8 Blood lymphocytes automated count (number/volume) 1.0 10*3 1.0-4.0 Blood monocytes automated count (number/volume) 0.4 10*3 0.0-1.0 Automated eosinophil count 0.2 10*3/uL 0.0-0.3 Automated blood basophil count (count/volume) 0.0 10*3/uL 0.0-0.1 Manual blood segmented neutrophils/100 leukocytes 69 % NRG Manual blood lymphocytes/100 leukocytes 22 % NRG Manual eosinophils/100 leukocytes in nose 3 % NRG Manual blood basophils/100 leukocytes 0 % NRG Blood polychromasia detection by light microscopy SLIGHT NRG Blood anisocytosis detection by light microscopy SLIGHT NRG Blood hypochromia detection by light microscopy SLIGHT NRG Blood microcytes detection by light microscopy SLIGHT NRG Blood reticulocytes count (number/volume) 79 10*9/L 24-90 Blood reticulocytes/100 erythrocytes 2.57 % 0.50-2.40 Serum or plasma ferritin measurement (mass/volume) - 03/08/17 10:36 Serum or plasma ferritin measurement (mass/volume) 5.0 L 25.0-300.0 Immature platelet percentage - 03/08/17 10:36 Immature platelet percentage 3.9 % 0.0- 7.2 PT panel in platelet poor plasma by coagulation assay - 03/08/17 10:54 Prothrombin time (PT) in platelet poor plasma by coagulation assay 13.6 s 12.2-14.7 INR in platelet poor plasma or blood by coagulation assay 1.1 0.8-1.4 Activated partial thromboplastin time (aPTT) in platelet poor plasma bycoagulation assay - 03/08/17 10:54 Activated partial thromboplastin time (aPTT) in platelet poor plasma bycoagulation assay 27 s 24-35 RED CELLS LEUKO REDUCED AS1 - 03/08/17 11:22 RED CELLS LEUKO REDUCED AS1 TRANSFUSED [id number] [facility] Blood type T Indirect antibody screen panel - 03/08/17 11:22 ABO+Rh group BP [facility] Transfusion band number [id number] [facility] Blood group antibody screen NEGATIVE [facility] Methicillin resistant Staphylococcus aureus (MRSA) screening culture - 12:30 Methicillin resistant Staphylococcus aureus (MRSA) screening culture NEG [facility] Whole blood hemoglobin and hematocrit panel - 03/08/17 20:15 Venous blood hemoglobin measurement (mass/volume) 8.5 g/dL 13.3-17.7 Blood hematocrit (volume fraction) 28 % 40-54 Capillary blood glucose measurement by glucometer (mass/volume) - 03/08/17 21: 50 Capillary blood glucose measurement by glucometer (mass/volume) 150 mg/dL 70-110 Complete blood count (CBC) with automated white blood cell (WBC) differential - 03/09/17 03:44 Blood leukocytes automated count (number/volume) 4.1 10*3/ uL 4.3-11.0 Blood erythrocytes automated count (number/volume) 3.37 10*6 /uL 4.35-5.85 Venous blood hemoglobin measurement (mass/volume) 8.1 g/dL 13.3-17.7 Blood hematocrit (volume fraction) 27 % 40-54 Automated erythrocyte mean corpuscular volume 79 [foz_us] 80-99 Automated erythrocyte mean corpuscular hemoglobin (mass per erythrocyte) 24 pg 25-34 Automated erythrocyte mean corpuscular hemoglobin concentration measurement ( mass/volume) 31 g/dL 32-36 Automated erythrocyte distribution width ratio 16.1 % 10.0-14.5 Automated blood platelet count (count/volume) 231 10*3/uL 130-400 Automated blood platelet mean volume measurement 9.8 [foz_us ] 7.4-10.4 Automated blood neutrophils/100 leukocytes 60 % 42-75 Automated blood lymphocytes/100 leukocytes 23 % 12-44 Blood monocytes/100 leukocytes 11 % 0-12 Automated blood eosinophils/100 leukocytes 5 % 0-10 Automated blood basophils/100 leukocytes 1 % 0-10 Blood neutrophils automated count (number/volume) 2.5 10*3 1.8-7.8 Blood lymphocytes automated count (number/volume) 1.0 10*3 1.0-4.0 Blood monocytes automated count (number/volume) 0.5 10*3 0.0-1.0 Automated eosinophil count 0.2 10*3/uL 0.0-0.3 Automated blood basophil count (count/volume) 0.0 10*3/uL 0.0-0.1 Lipid 1996 panel - 03/09/17 03:44 Serum or plasma triglyceride measurement (mass/volume) 89 mg /dL <150 Serum or plasma cholesterol measurement (mass/volume) 128 mg /dL < 200 Serum or plasma cholesterol in HDL measurement (mass/volume) 35 mg/dL 40-60 Cholesterol in LDL [mass/volume] in serum or plasma by direct assay 77 mg/dL 1-129 Serum or plasma cholesterol in VLDL measurement (mass/volume) 18 mg/dL 5-40 Whole blood basic metabolic panel - 03/09/17 03:44 Serum or plasma sodium measurement (moles/volume) 137 mmol/ L 135-145 Serum or plasma potassium measurement (moles/volume) 4.5 mmol/L 3.6-5.0 Serum or plasma chloride measurement (moles/volume) 108 mmol /L 98-107 Carbon dioxide 21 mmol/L 21-32 Serum or plasma anion gap determination (moles/volume) 8 mmol/L 5-14 Serum or plasma urea nitrogen measurement (mass/volume) 22 mg/dL 7-18 Serum or plasma creatinine measurement (mass/volume) 1.06 mg /dL 0.60-1.30 Serum or plasma urea nitrogen/creatinine mass ratio 21 NRG Serum or plasma creatinine measurement with calculation of estimated glomerular filtration rate > NRG Serum or plasma glucose measurement (mass/volume) 167 mg/dL 70-105 Serum or plasma calcium measurement (mass/volume) 8.4 mg/dL 8.5-10.1 Serum or plasma phosphate measurement (mass/volume) - 03/09/17 03:44 Serum or plasma phosphate measurement (mass/volume) 3.7 mg/ dL 2.3-4.7 Magnesium - 03/09/17 03:44 Magnesium 1.9 mg/dL 1.8-2.4 Serum or plasma oxcta-[id number]-[id number].tumor marker measurement (mass/volume) - 03:44 Serum or plasma [id number].tumor marker measurement (mass/volume) 2.2 % 1.5-10.0 Urine drug screening test - 03/09/17 10:15 Urine phencyclidine detection by screening method NEGATIVE NEGATIVE Urine benzodiazepines detection by screening method NEGATIVE NEGATIVE Urine cocaine detection NEGATIVE NEGATIVE Urine amphetamines detection by screening method NEGATIVE NEGATIVE Urine methamphetamine detection by screening method NEGATIVE NEGATIVE Urine cannabinoids detection by screening method NEGATIVE NEGATIVE Urine opiates detection by screening method NEGATIVE NEGATIVE Urine barbiturates detection NEGATIVE NEGATIVE Screening urine tricyclic antidepressants detection NEGATIVE NEGATIVE Urine methadone detection by screening method NEGATIVE NEGATIVE Urine oxycodone detection NEGATIVE NEGATIVE Urine propoxyphene detection NEGATIVE NEGATIVE Capillary blood glucose measurement by glucometer (mass/volume) - 03/09/17 10: 55 Capillary blood glucose measurement by glucometer (mass/volume) 150 mg/dL 70-110 Capillary blood glucose measurement by glucometer (mass/volume) - 03/09/17 15: 15 Capillary blood glucose measurement by glucometer (mass/volume) 149 mg/dL 70-110 Automated blood complete blood count (hemogram) panel - 03/09/17 16:34 Blood leukocytes automated count (number/volume) 4.5 10*3/ uL 4.3-11.0 Blood erythrocytes automated count (number/volume) 4.10 10*6 /uL 4.35-5.85 Venous blood hemoglobin measurement (mass/volume) 10.3 g/dL 13.3-17.7 Blood hematocrit (volume fraction) 34 % 40-54 Automated erythrocyte mean corpuscular volume 82 [foz_us] 80-99 Automated erythrocyte mean corpuscular hemoglobin (mass per erythrocyte) 25 pg 25-34 Automated erythrocyte mean corpuscular hemoglobin concentration measurement ( mass/volume) 31 g/dL 32-36 Automated erythrocyte distribution width ratio 17.0 % 10.0-14.5 Automated blood platelet count (count/volume) 236 10*3/uL 130-400 Automated blood platelet mean volume measurement 9.5 [z_us ] 7.4-10.4 Complete blood count (CBC) with automated white blood cell (WBC) differential - 03/11/17 21:35 Blood leukocytes automated count (number/volume) 6.6 10*3/ uL 4.3-11.0 Blood erythrocytes automated count (number/volume) 4.45 10*6 /uL 4.35-5.85 Venous blood hemoglobin measurement (mass/volume) 11.0 g/dL 13.3-17.7 Blood hematocrit (volume fraction) 35 % 40-54 Automated erythrocyte mean corpuscular volume 80 [[facility]_us] 80-99 Automated erythrocyte mean corpuscular hemoglobin (mass per erythrocyte) 25 pg 25-34 Automated erythrocyte mean corpuscular hemoglobin concentration measurement ( mass/volume) 31 g/dL 32-36 Automated erythrocyte distribution width ratio 17.9 % 10.0-14.5 Automated blood platelet count (count/volume) 261 10*3/uL 130-400 Automated blood platelet mean volume measurement 9.4 [foz_us ] 7.4-10.4 Automated blood neutrophils/100 leukocytes 62 % 42-75 Automated blood lymphocytes/100 leukocytes 23 % 12-44 Blood monocytes/100 leukocytes 10 % 0-12 Automated blood eosinophils/100 leukocytes 4 % 0-10 Automated blood basophils/100 leukocytes 1 % 0-10 Blood neutrophils automated count (number/volume) 4.1 10*3 1.8-7.8 Blood lymphocytes automated count (number/volume) 1.6 10*3 1.0-4.0 Blood monocytes automated count (number/volume) 0.7 10*3 0.0-1.0 Automated eosinophil count 0.3 10*3/uL 0.0-0.3 Automated blood basophil count (count/volume) 0.0 10*3/uL 0.0-0.1 Urine drug screening test - 03/11/17 21:35 Urine phencyclidine detection by screening method NEGATIVE NEGATIVE Urine benzodiazepines detection by screening method NEGATIVE NEGATIVE Urine cocaine detection NEGATIVE NEGATIVE Urine amphetamines detection by screening method NEGATIVE NEGATIVE Urine methamphetamine detection by screening method NEGATIVE NEGATIVE Urine cannabinoids detection by screening method NEGATIVE NEGATIVE Urine opiates detection by screening method NEGATIVE NEGATIVE Urine barbiturates detection NEGATIVE NEGATIVE Screening urine tricyclic antidepressants detection NEGATIVE NEGATIVE Urine methadone detection by screening method NEGATIVE NEGATIVE Urine oxycodone detection NEGATIVE NEGATIVE Urine propoxyphene detection NEGATIVE NEGATIVE PT panel in platelet poor plasma by coagulation assay - 03/11/17 21:35 Prothrombin time (PT) in platelet poor plasma by coagulation assay 13.1 s 12.2-14.7 INR in platelet poor plasma or blood by coagulation assay 1.0 0.8-1.4 Activated partial thromboplastin time (aPTT) in platelet poor plasma bycoagulation assay - 03/11/17 21:35 Activated partial thromboplastin time (aPTT) in platelet poor plasma bycoagulation assay 27 s 24-35 Complete urinalysis with reflex to culture - 03/11/17 21:35 Urine color determination YELLOW NRG Urine clarity determination SLIGHTLY CLOUDY NRG Urine pH measurement by test strip 5 5- 9 Specific gravity of urine by test strip 1.025 1.016-1.022 Urine protein assay by test strip, semi-quantitative 2+ NEGATIVE Urine glucose detection by automated test strip NEGATIVE NEGATIVE Erythrocytes detection in urine sediment by light microscopy NEGATIVE NEGATIVE Urine ketones detection by automated test strip 1+ NEGATIVE Urine nitrite detection by test strip NEGATIVE NEGATIVE Urine total bilirubin detection by test strip NEGATIVE NEGATIVE Urine urobilinogen measurement by automated test strip (mass/volume) 1 mg/dL NORMAL Urine leukocyte esterase detection by dipstick 1+ NEGATIVE Automated urine sediment erythrocyte count by microscopy (number/high power field) NONE NRG Automated urine sediment leukocyte count by microscopy (number/high power field ) [HPF] NRG Bacteria detection in urine sediment by light microscopy NEGATIVE NRG Squamous epithelial cells detection in urine sediment by light microscopy 0-2 NRG Crystals detection in urine sediment by light microscopy NONE NRG Casts detection in urine sediment by light microscopy NONE NRG Mucus detection in urine sediment by light microscopy NEGATIVE NRG Complete urinalysis with reflex to culture NO NRG Comprehensive metabolic panel - 03/11/17 21:35 Serum or plasma sodium measurement (moles/volume) 139 mmol/ L 135-145 Serum or plasma potassium measurement (moles/volume) 4.3 mmol/L 3.6-5.0 Serum or plasma chloride measurement (moles/volume) 107 mmol /L 98-107 Carbon dioxide 20 mmol/L 21-32 Serum or plasma anion gap determination (moles/volume) 12 mmol/L 5-14 Serum or plasma urea nitrogen measurement (mass/volume) 28 mg/dL 7-18 Serum or plasma creatinine measurement (mass/volume) 1.47 mg /dL 0.60-1.30 Serum or plasma urea nitrogen/creatinine mass ratio 19 NRG Serum or plasma creatinine measurement with calculation of estimated glomerular filtration rate 50 NRG Serum or plasma glucose measurement (mass/volume) 134 mg/dL 70-105 Serum or plasma calcium measurement (mass/volume) 9.7 mg/dL 8.5-10.1 Serum or plasma total bilirubin measurement (mass/volume) 0.6 mg/dL 0.1-1.0 Serum or plasma alkaline phosphatase measurement (enzymatic activity/volume) 59 U/L 40-136 Serum or plasma aspartate aminotransferase measurement (enzymatic activity/ volume) 39 U/L 5-34 Serum or plasma alanine aminotransferase measurement (enzymatic activity/volume ) 46 U/L 0-55 Serum or plasma protein measurement (mass/volume) 8.7 g/dL 6.4-8.2 Serum or plasma albumin measurement (mass/volume) 4.4 g/dL 3.2-4.5 Magnesium - 03/11/17 21:35 Magnesium 2.1 mg/dL 1.8-2.4 Serum or plasma troponin i.cardiac measurement (mass/volume) - 03/11/17 21:35 Serum or plasma troponin i.cardiac measurement (mass/volume) < ng/mL <0.30 Serum or plasma amylase measurement (enzymatic activity/volume) - 03/11/17 21: 35 Serum or plasma amylase measurement (enzymatic activity/volume) 72 U/L 25-125 Lipase - 03/11/17 21:35 Lipase 32 U/L 8-78 Serum or plasma ethanol measurement (mass/volume) - 03/11/17 21:35 Serum or plasma ethanol measurement (mass/volume) < mg/dL <10 Serum or plasma lithium measurement (moles/volume) - 03/11/17 21:35 BNP level 14.6 pg/mL <100.0 Stool leukocytes detection by light microscopy - 03/11/17 21:35 FECAL WBC RESULTS MODERATE # WBC'S OBSERVED ON DIRECT SMEAR NRG FECAL NOTE FECAL LEUKOCYTES MAY BE INTERMITTENTLY PRESENT OR NRG FECAL NOTE UNEVENLY DISTRIBUTED IN STOOL SPECIMENS, AND WBC NRG FECAL NOTE MORPHOLOGY DEGRADES DURING TRANSPORT NRG FECAL NOTE NOTE: NRG C DIFFICILE AG + TOXIN A/B. - 03/11/17 21:35 RESULTS NEGATIVE FOR ANTIGEN AND TOXIN A/B NRG Stool bacteria identification by culture - 03/11/17 21:35 Stool bacteria identification by culture N2 NRG [id number] - 03/11/17 21:35 [id number] FOOTNOTE NRG Encounters ACCT No. Visit Date/Time Discharge Status Pt. Type Provider Facility Loc./Unit Complaint [id number] 06/28/2014 10:11:00 06/28/2014 23: 59:59 CLS Outpatient NIMISHA MORIN DO [id number] 02/19/2014 14:05:00 02/19/2014 23: 59:59 CLS Outpatient NIMISHA MORIN DO [id number] 11/02/2013 13:11:00 11/02/2013 23: 59:59 CLS Outpatient NIMISHA MORIN DO [id number] 07/28/2013 10:36:00 07/28/2013 23: 59:59 CLS Outpatient NIMISHA MORIN DO [id number] 07/07/2013 11:21:00 07/07/2013 23: 59:59 CLS Outpatient NIMISHA MORIN DO [id number] 06/10/2013 12:44:00 06/10/2013 23: 59:59 CLS Outpatient DOUGLAS SEO DDS [id number] 12/16/2012 10:05:00 12/16/2012 23: 59:59 CLS Outpatient [id number] 11/14/2012 10:48:00 11/14/2012 23: 59:59 CLS Outpatient NIMISHA MORIN DO [id number] 10/16/2012 09:54:00 10/16/2012 23: 59:59 CLS Outpatient [id number] 09/15/2012 11:06:00 09/15/2012 23: 59:59 CLS Outpatient NIMISHA MORIN DO [id number] 09/15/2012 11:06:00 09/15/2012 23: 59:59 CLS Outpatient NIMISHA MORIN DO [id number] 02/25/2013 14:06:00 Document Registration [id number] 02/17/2013 08:01:00 Document Registration
--- OUTSIDE RECORDS SUMMARY | 2017-04-12 12:15 | XMS REPORT | Continuity of Care Document ---
Author Author [facility] Address Unknown Phone Unavailable Allergies Active Description Code Type Severity Reaction Onset Reported/Identified Relationship to Patient Clinical Status Yes NKA Drug N/A N/A Yes No Known Drug Allergies [id number] Drug Allergy Unknown N/ A 08/11/2012 Yes [...] UNCOMPLICATED , UNCONTROLLED 09/15/2012 GABBI DDS, DOUGLAS Barrett 401.1 ESSENTIAL HYPERTENSION BENIGN 09/15/2012 GABBI DDS, [...] ABNORMAL LFT (LIVER FUNCTION TEST) 09/16/2012 DOUGLAS ESO DDS 790.6 ABNORMAL LFT (LIVER FUNCTION TEST) [...] DO K 791.0 MICROALBUMINURIA 05/30/2015 LUCINA GOEL CREPE LAMINATOR OPERATOR Ot 250.00 DIAB CHRISTIANE WO COMPL, TYPE II OR UNSPEC TY 05/30/2015 LUCINA GOEL CREPE LAMINATOR OPERATOR Ot 305.1 TOBACCO USE DISORDER 05/30/2015 LUCINA GOEL CREPE LAMINATOR OPERATOR Ot 466.0 ACUTE BRONCHITIS 05/30/2015 LUCINA GOEL CREPE LAMINATOR OPERATOR Ot 599.0 URIN TRACT INFECTION NOS 05/30/2015 LUCINA GOEL CREPE LAMINATOR OPERATOR Ot 780.79 OTH MALAISE FATIGUE 05/30/2015 LUCINA GOEL CREPE LAMINATOR OPERATOR Ot V58.67 LONG-TERM (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 OF [...] 02/02/2016 ODILIA HOSKINS MD Ot Z79.899 OTHER SETTLEMENT AGENT (CURRENT) DRUG THERAPY 02/03/2016 ODILIA HOSKINS MD [...] 04/30/2016 ODILIA HOSKINS MD Ot Z79.899 OTHER SETTLEMENT AGENT (CURRENT) DRUG THERAPY 05/08/2016 ODILIA HOSKINS MD [...] 05/08/2016 ODILIA HOSKINS MD Ot Z79.899 OTHER SETTLEMENT AGENT (CURRENT) DRUG THERAPY 05/20/2016 CLIFFORD REESE MD [...] 06/25/2016 ODILIA HOSKINS MD Ot Z79.899 OTHER SETTLEMENT AGENT (CURRENT) DRUG THERAPY 06/27/2016 ODILIA HOSKINS MD [...] 06/27/2016 ODILIA HOSKINS MD Ot Z79.899 OTHER SETTLEMENT AGENT (CURRENT) DRUG THERAPY 07/22/2016 SAVANA STONER MD, [...] GE 07/22/2016 SAVANA STONER MD, Ot Z79.4 SETTLEMENT AGENT (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 OF INSULIN 07/22/2016 SAVANA STONER MD, Ot Z79.899 OTHER CUSTODIAL (CURRENT) DRUG THERAPY 07/23/2016 SAVANA STONER MD, [...] GE 07/23/2016 SAVANA STONER MD, Ot Z79.4 SETTLEMENT AGENT (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 OF INSULIN 07/23/2016 SAVANA STONER MD, Ot Z79.899 OTHER SETTLEMENT AGENT (CURRENT) DRUG THERAPY 07/24/2016 ODILIA HOSKINS MD [...] 07/24/2016 ODILIA HOSKINS MD Ot Z79.899 OTHER CUSTODIAL (CURRENT) DRUG THERAPY 07/25/2016 ODILIA HOSKINS MD, [...] 07/25/2016 ODILIA HOSKINS MD, Ot Z79.899 OTHER SETTLEMENT AGENT (CURRENT) DRUG THERAPY 08/06/2016 ODILIA HOSKINS MD, [...] 08/06/2016 ODILIA HOSKINS MD Ot Z79.899 OTHER SETTLEMENT AGENT (CURRENT) DRUG THERAPY 08/06/2016 ODILIA HOSKINS MD [...] 08/06/2016 ODILIA HOSKINS MD, Ot Z79.899 OTHER SETTLEMENT AGENT (CURRENT) DRUG THERAPY 08/06/2016 ODILIA HOSKINS MD, [...] 10/22/2016 ODILIA HOSKINS MD Ot Z79.899 OTHER CUSTODIAL (CURRENT) DRUG THERAPY 02/19/2017 ALLAN ROMERO FAC, ALI FACP CCDS Ot E11.9 TYPE 2 DIABETES MELLITUS WITHOUT COMPLIC 02/19/2017 ALLAN ROMERO FACHayden, ALI FACP CCDS Ot I10 ESSENTIAL (PRIMARY) HYPERTENSION 02/19/2017 ALLAN ROMERO [facility] REY FACP CCDS Ot R07.89 OTHER CHEST PAIN 02/19/2017 ALLAN ROMERO [facility], ALI FACP CCDS Ot Z53.09 PROC/TRTMT NOT CARRIED OUT BECAUSE OF CO 02/19/2017 ALLAN ROMERO [facility]Y FACP CCDS Ot Z72.0 TOBACCO USE 02/19/2017 ALLAN ROMERO [facility], ALI FACP CCDS Ot Z79.4 CUSTODIAL (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 OF INSULIN 02/19/2017 ALLAN ROMERO [facility], ALI FACP CCDS Ot Z79.899 OTHER CUSTODIAL (CURRENT) DRUG THERAPY 02/19/2017 ODILIA HOSKINS MD [...] 02/19/2017 ODILIA HOSKINS MD Ot Z79.899 OTHER SETTLEMENT AGENT (CURRENT) DRUG THERAPY 02/20/2017 ODILIA HOSKINS MD [...] 02/20/2017 ODILIA HOSKINS MD Ot Z79.899 OTHER CUSTODIAL (CURRENT) DRUG THERAPY 02/20/2017 SAVANA STONER MD [...] GE 02/20/2017 SAVANA STONER MD, Ot Z79.4 SETTLEMENT AGENT (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 OF INSULIN 02/20/2017 SAVANA STONER MD, Ot Z79.899 OTHER CUSTODIAL (CURRENT) DRUG THERAPY 02/21/2017 TOM ROMERO, CHITO [...] 02/21/2017 ODILIA HOSKINS MD Ot Z79.899 OTHER CUSTODIAL (CURRENT) DRUG THERAPY 02/21/2017 CHITO SANTOS MD, [...] ROMERO FACC, REY FACP CCDS Ot Z79.4 CUSTODIAL (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 OF INSULIN 02/28/2017 ALLAN ROMERO FACC, REY FACP CCDS Ot Z79.899 OTHER SETTLEMENT AGENT (CURRENT) DRUG THERAPY 03/08/2017 ODILIA HOSKINS MD [...] 03/08/2017 ODILIA HOSKINS MD Ot Z79.899 OTHER SETTLEMENT AGENT (CURRENT) DRUG THERAPY 03/08/2017 CHIOT SANTOS MD Ot D64.9 ANEMIA, UNSPECIFIED 03/09/2017 [...] MD Ot I25.10 ATHSCL HEART DISEASE OF [place] CORONARY 03/09/2017 JILLIAN LOVE MD Ot K74.60 UNSPECIFIED CIRRHOSIS OF LIVER 03/09/2017 JILLIAN LOVE MD Ot R07.89 OTHER CHEST PAIN 03/09/2017 JILLIAN LOVE MD, Ot Z68.37 BODY MASS INDEX (BMI) 37.0-37.9, ADULT 03/09/2017 JILLIAN LOVE MD, Ot Z79.4 CUSTODIAL (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 OF INSULIN 03/09/2017 JILLIAN LOVE MD Ot Z79.84 SETTLEMENT AGENT (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 OF ORAL HYPOGLYC 03/11/2017 CHAN DO, TY K Ot B19.20 UNSPECIFIED VIRAL HEPATITIS C WITHOUT HE 03/11/2017 CHAN DO, TY K Ot E11.9 TYPE 2 DIABETES MELLITUS WITHOUT COMPLIC 03/11/2017 CHAN DO, TY K Ot I10 ESSENTIAL (PRIMARY) HYPERTENSION 03/11/2017 CHAN DO, TY K Ot I25.10 ATHSCL HEART DISEASE OF [place] CORONARY 03/11/2017 CHAN DO TY K Ot I25.2 OLD MYOCARDIAL INFARCTION 03/11/2017 CHAN DO TY K Ot K52.9 NONINFECTIVE GASTROENTERITIS AND COLITIS 03/11/2017 CHAN DO TY K Ot K57.30 DVRTCLOS OF LG INT W/O PERFORATION OR AB 03/11/2017 CHAN DO TY K Ot N32.9 BLADDER DISORDER, UNSPECIFIED 03/11/2017 CHAN DO TY K Ot R19.7 DIARRHEA, UNSPECIFIED 03/11/2017 CHAN DO, TY K Ot Z79.4 SETTLEMENT AGENT (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 OF INSULIN 03/11/2017 CHAN DO TY K Ot Z79.84 SETTLEMENT AGENT (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 OF ORAL HYPOGLYC 03/11/2017 CHAN DO TY K Ot Z79.899 OTHER CUSTODIAL (CURRENT) DRUG THERAPY 03/12/2017 ODILIA HOSKINS MD, [...] GATO ROMERO ODILIA Madeline Ot Z79.899 OTHER SETTLEMENT AGENT (CURRENT) DRUG THERAPY 03/12/2017 CHITO SANTOS MD, Ot D64.9 ANEMIA, UNSPECIFIED 03/12/2017 ODILIA HOSKINS MD Ot D50.9 IRON DEFICIENCY ANEMIA, UNSPECIFIED 03/12/2017 ODILIA HOSKINS MD Ot D64.9 ANEMIA, UNSPECIFIED 03/12/2017 ODILIA OHSKINS MD Ot R06.02 SHORTNESS OF BREATH 03/12/2017 [...] GATO ROMERO ODILIA Madeline Ot Z79.899 OTHER SETTLEMENT AGENT (CURRENT) DRUG THERAPY 03/12/2017 CHITO SANTOS MD, [...] Ot Z72.0 TOBACCO USE 03/22/2017 ALLAN ROMERO [facility] REY [facility] CCDS Ot Z79.4 CUSTODIAL (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 OF INSULIN 03/22/2017 REY LEMUS MD, FACC [facility] CCDS Ot Z79.899 OTHER CUSTODIAL (CURRENT) DRUG THERAPY 04/04/2017 ODILIA HOSKINS MD Ot D50.9 IRON DEFICIENCY ANEMIA, UNSPECIFIED 04/04/2017 ODILIA HOSKINS MD Ot D64.9 ANEMIA, UNSPECIFIED 04/04/2017 ODILIA HOSKINS MD Ot R06.02 SHORTNESS OF BREATH Procedures Code [place] [address] ROUTINE VENIPUNCTURE 09/15/2012 OPHTH DIABETIC, EYE EXAM 09/15/2012 TING RADFORD 12/2011 62894 MICRO ALBUMIN-IN HOUSE 09/15/2012 21127 CMP 09/15/2012 [id number] GFR CALC (RESULT ONLY) 09/15/2012 68093 A1C (RML) 2011 77770 MICROALBUMIN 01/2012 73564 UA LONG DIP 11/14 46624 A1C (IN-HOUSE) 54463 ROUTINE VENIPUNCTURE 02/17/2013 63444 CMP 02/17/2013 72155 LIPID PANEL 02/17 [id number] GFR CALC (RESULT ONLY) 02/17/2013 85746 CPK 02/17/2013 54939 IRON SERUM 2012 11935 IRON BNDNG CAP 06154 HEPATITIS PROFILE 02/18/2013 1057869 HCV INDEX (RESULT ONLY) 02/18/2013 95628 FERRITIN 2012 [facility] IRON GROUP (Iron,TIBC, Ferritin) 02/22/2013 41999 ROUTINE VENIPUNCTURE 02/25/2013 43814 URINE DRUG SCREEN (IN-HOUSE) 02/25/2013 66429 PT/INR 2012 58016 HIV ANTIBODIES (RML) 02/25/2013 31639 HEP B SURFACE ANTIBODY 02/25/2013 77116 HEP A ANTIBODY, IGM (RML) 02/25/2013 44463 HEP B SURFACE ANTIGEN (STATE) 02/25/2013 63970 HEP C PCR QUANT W/[place] 02/25/2013 [facility] 03/26/2013 34522 OXIMETRY 2012 93499 ROUTINE VENIPUNCTURE 07/28/2013 82608 A1C (IN-HOUSE) 61691 MICRO ALBUMIN-IN HOUSE 07/28/2013 76349 CMP 07/28/2013 55878 LIPID PANEL 07/28 94216 MICROALBUMIN 0021865 GFR CALC (RESULT ONLY) 07/28/2013 73160 CMP 11/02/2013 60216 UA LONG DIP 11/02 02570 A1C (IN-HOUSE) 50453 URINE DRUG SCREEN (IN-HOUSE) 11/02/2013 63575 ROUTINE VENIPUNCTURE 02/19/2014 98494 MICRO ALBUMIN-IN HOUSE 02/19/2014 45781 A1C (IN-HOUSE) 8F FOOT EXAM PERFORMED 02/19/2014 6972862 GFR CALC (RESULT ONLY) 02/19/2014 39265 CMP 02/19/2014 62069 EYE EXAM PERFORMED 02/22/2014 08558 MICROALBUMIN 09/2014 88254 A1C (IN-HOUSE) Results Test Result Range Capillary [...] culture - 05/20/16 15:50 Bacterial urine culture [id number] NRG COLONY COUNT >100,000/ML NRG FTX;REPORTABLE SENSITIVITY [...] ABO+Rh group BP NRG Transfusion band number [id number] NRG Blood group antibody screen NEGATIVE NRG [...] RED CELLS LEUKO REDUCED AS1 TRANSFUSED 1333 [facility] Blood type T Indirect antibody screen panel - 03/08/17 11:22 ABO+Rh group BP [facility] Transfusion band number [id number] [facility] Blood group antibody screen NEGATIVE [facility] Methicillin resistant Staphylococcus aureus (MRSA) screening culture - 12:30 Methicillin resistant Staphylococcus aureus (MRSA) screening culture NEG [facility] Whole blood hemoglobin and hematocrit panel [...] Magnesium 1.9 mg/dL 1.8-2.4 Serum or plasma boiep-7-ubcprnchksn.tumor marker measurement (mass/volume) - 03:44 Serum or plasma otnua-7-viecqnrrczh.tumor marker measurement (mass/volume) 2.2 % 1.5-10.0 Urine [...] 40-54 Automated erythrocyte mean corpuscular volume 80 [[facility]] 80-99 Automated erythrocyte mean corpuscular hemoglobin (mass [...] Stool bacteria identification by culture N2 NRG [id number] - 03/11/17 21:35 [id number] FOOTNOTE NRG Encounters ACCT No. Visit Date/Time Discharge Status Pt. Type Provider Facility Loc./Unit Complaint [id number] 06/28/2014 10:11:00 06/28/2014 23: 59:59 CLS Outpatient NIMISHA MORIN DO [id number] 02/19/2014 14:05:00 02/19/2014 23: 59:59 CLS Outpatient NIMISHA MORIN DO [id number] 11/02/2013 13:11:00 11/02/2013 23: 59:59 CLS Outpatient NIMISHA MORIN DO [id number] 07/28/2013 10:36:00 07/28/2013 23: 59:59 CLS Outpatient NIMISHA MORIN DO [id number] 07/07/2013 11:21:00 07/07/2013 23: 59:59 CLS Outpatient NIMISHA MORIN DO [id number] 06/10/2013 12:44:00 06/10/2013 23: 59:59 CLS Outpatient DOUGLAS SEO DDS [id number] 12/16/2012 10:05:00 12/16/2012 23: 59:59 CLS Outpatient [id number] 11/14/2012 10:48:00 11/14/2012 23: 59:59 CLS Outpatient NIMISHA MORIN DO [id number] 10/16/2012 09:54:00 10/16/2012 23: 59:59 CLS Outpatient [id number] 09/15/2012 11:06:00 09/15/2012 23: 59:59 CLS Outpatient NMIISHA MORIN DO [id number] 09/15/2012 11:06:00 09/15/2012 23: 59:59 CLS Outpatient NIMISHA MORIN DO [id number] 02/25/2013 14:06:00 Document Registration [id number] 02/17/2013 08:01:00 Document Registration
--- OUTSIDE RECORDS SUMMARY | 2017-04-12 12:16 | XMS REPORT ---
Author Author [facility]AC[facility] Address [address] [place], [place] [id number] Care Team Providers Care Dinkey Skinner Name Role Phone REVA JACOBO PCP Unavailable REVA JACOBO PreferredProvider Unavailable Allergies and Adverse Reactions Name Reaction Notes No known drug allergy Plan of Treatment Not available. Medications Active Name Start Date Estimated Completion Date SIG Comments metformin 1,000 mg oral tablet take 1 tablet (1,000 mg) by oral route 2 times per day with morning and evening meals Diovan 40 mg oral tablet take 1 tablet by oral route daily pioglitazone 45 mg oral tablet take 1 tablet (45 mg) by oral route once daily pravastatin 20 mg oral tablet take 1 tablet (20 mg) by oral route once daily Levemir 100 unit/mL subcutaneous solution inject by subcutaneous route per prescriber's instructions. Insulin dosing requires individualization. Proventil HFA 90 mcg/actuation inhalation HFA aerosol inhaler inhale 1 puff (90 mcg) by inhalation route every 6 hours as needed iron 325 mg (65 mg iron) oral capsule, extended release take 1 capsule by oral route daily Vitamin B-12 oral naproxen sodium oral Claritin oral Excedrin Migraine 250-250-65 mg oral tablet Problem List Not available. Vital Signs Date Time BP-Sys(mm[Hg] BP-Jessica(mm[Hg]) HR(bpm) RR(rpm) Temp WT HT HC BMI BSA BMI Percentile O2 Sat(%) 04/11/2017 10:08:00 AM 134 mmHg 70 mmHg 84 bpm 16 rpm 94 F 251 lbs 70 in 36.01 kg/m2 2.37 m2 98 % 03/22/2016 10:18:00 AM 132 mmHg 78 mmHg 98 bpm 16 rpm 97.8 F 245 lbs 70 in 35.1535 kg/m 2.3428 m 98 % Social History Name Description Comments smoking Current every day Alcohol Never Uses seatbelts Current every day Exercises regularly Current every day History of Procedures Not available. Results Summary Not available. History Of Immunizations Not available. 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
[2017-04-12] MEDS ORDERED: LACTATED RINGERS 1,000 ML IV STA (12:42)
[2017-04-12] MEDS ORDERED: HURRICAINE EXT TUBE (BENZOCAINE) XX PRN (12:45)
[2017-04-12] MEDS ORDERED: LACTATED RINGERS 1,000 ML IV ONE (12:51)
[2017-04-12 13:15] VITALS: BP 115/83
[2017-04-12] MEDS ORDERED: PROPOFOL INJECTION 50 ML IV ONE (14:58)
[2017-04-12] MEDS ORDERED: MIDAZOLAM 2 MG/2 ML (VERSED) VIAL ONE (14:58)
--- NOTE | 2017-04-12 15:04 | Progress Note-Pre Operative ---
Pre-Operative Progress Note H&P Reviewed The H&P was reviewed, patient examined and no changes noted. Date Seen by Provider: Apr 12, 2017 Time Seen by Provider: 14:30 Date H&P Reviewed: Apr 12, 2017 Time H&P Reviewed: 14:30 Pre-Operative Diagnosis: iron def anemia ANABELL ORELLANA DO Apr 12, 2017 3:04 pm
[2017-04-12] MEDS ORDERED: proPOfol 200 MG/20 ML (DIPRIVAN) VIAL IV ONE (15:26)
[2017-04-12] MEDS ORDERED: SUCR1TAB36 PO (15:44)
[2017-04-12] MEDS ORDERED: PANT40TA2 PO (15:44)
--- NOTE | 2017-04-12 15:48 | Discharge Inst-Simple/Standard ---
Discharge Inst-Standard Discharge Medications New, Converted or Re-Newed RX: Transmitted to Pharmacy Patient Instructions/Follow Up Plan of Care/Instructions/FU: Follow up with Dr. Hansen in 2 weeks Avoid Alcohol Take medication as directed. Activity as Tolerated: Yes Discharge Diet: No Restrictions ROXY SEGAL APRN Apr 12, 2017 15:47
[2017-04-12 15:55] VITALS: BP 115/60
[2017-04-12 16:30] VITALS: BP 112/85
--- NOTE | 2017-04-12 16:52 | Progress Note-Post Operative ---
Post-Operative Progess Note Surgeon (s)/Improvement Director (s) Surgeon ANABELL ORELLANA DO Improvement Director: na Pre-Operative Diagnosis iron def anemia Post-Operative Diagnosis gastritis, hiatal hernia, polyps of colon x 5 Procedure & Operative Findings Date of Procedure 04/12/17 Procedure Performed/Findings egd c biopsies colonoscopy with hot bx polypectomy x 5 Anesthesia Type per b2b sales consultant Estimated Blood Loss Estimated blood loss (mL): none Specimens/Packing Specimens Removed antrum, body stomach, colon polyps ANABELL ORELLANA DO Apr 12, 2017 4:52 pm
[2017-04-12 16:57] VITALS: BP 112/85
--- NOTE | 2017-04-14 23:28 | OPERATIVE REPORT ---
PROCEDURE PHYSICIAN: ANABELL HANSEN DATE OF PROCEDURE: 04/12/2017 PREOPERATIVE DIAGNOSIS: Iron deficiency anemia. POSTOPERATIVE DIAGNOSES: 1. Gastritis. 2. Hiatal hernia. 3. Polyps of colon times 5. PROCEDURE: 1. EGD with biopsies. 2. Colonoscopy with hot list polypectomy x5. ANESTHESIA: Per HIGH SCHOOL MATH TEACHER. SURGEON: Dr. Hansen. ESTIMATED BLOOD LOSS: None. SPECIMENS: 1. Antrum. 2. Body. 3. Stomach. 4. Colon polyps. INDICATIONS: The patient is a 57-year-old male with recent drop in hemoglobin with iron deficiency anemia. He was sent endoscopy. He understands the risks and benefits of the procedures and wished to proceed with the procedures. Consent was signed on the chart. PROCEDURE: The patient was taken endoscopy suite, placed in left lateral recumbent position. Timeout was performed. A scope was inserted into the mouth, down the esophagus, stomach and into the duodenum without difficulty. There were no polyps, masses or ulcerations within the duodenum. The scope was slowly retracted back into the stomach which had erythematous changes and mucosal changes consistent with gastritis. There are some areas that appear fairly inflamed more than others. The scope was also retroflexed noting a hiatal hernia. Also again noting gastritis changes. Biopsy of the body and a biopsy of the antrum were obtained. The scope was then slowly retracted back into the esophagus, which had a normal appearance. The scope was then slowly retracted with completely removed. COLONOSCOPY: Digital rectal exam was performed. There were no palpable polyps, masses, or ulcerations. The scope was inserted in the rectum and advanced all the way to the cecum with minimal difficulty. The scope was slowly retracted back. There were no polyps, masses, or ulcerations within the cecum, ascending and transverse colon. Within the splenic flexure there is a small polyp, which hot biopsy polypectomy was performed. The scope was continued be slowly retracted back noting another small polyp in the sigmoid colon, which hot biopsy polypectomy was performed. In the descending and sigmoid colon there was a fair amount of diverticulosis present. The scope was continued to be slowly retracted back into the rectum, which had 3 small polyps, which hot biopsy polypectomies were performed. The scope was also retroflexed noting no other pathology. The scope was returned to its normal position and slowly withdrawn until completely removed. RECOMMENDATIONS: The patient will be on Protonix twice a day for 40 mg for 2 weeks and then go to once per day. The patient will also be placed on Carafate 1 gram 4 times a day. We will have him follow-up in 2 to 3 weeks to discuss pathology results. He will need a repeat colonoscopy in 3 to 5 years. Would also recommend repeat EGD in 6 to 12 months to reevaluate. Job ID: [id number] Dictated Date: 04/12/2017 16:56:03 Hospital Admissions Clerk Date: 04/14/2017 23:11:33 / gris
== END 2017-04-12 17:06 | disposition home or self-care (01) ==
LOC: ENDO 12:04
PROVIDERS: ATTEND Surgery
DX: D12.5 Benign neoplasm of sigmoid colon (principal); K63.5 Polyp of colon; K62.1 Rectal polyp; K57.30 Diverticulosis of large intestine without perforation or abscess without bleeding; K29.70 Gastritis, unspecified, without bleeding; K44.9 Diaphragmatic hernia without obstruction or gangrene; D50.9 Iron deficiency anemia, unspecified; I25.10 Atherosclerotic heart disease of native coronary artery without angina pectoris; I10 Essential (primary) hypertension; E78.5 Hyperlipidemia, unspecified; G47.33 Obstructive sleep apnea (adult) (pediatric); E11.40 Type 2 diabetes mellitus with diabetic neuropathy, unspecified; K75.9 Inflammatory liver disease, unspecified; F17.210 Nicotine dependence, cigarettes, uncomplicated; Z79.84 Long term (current) use of oral hypoglycemic drugs; Z79.899 Other long term (current) drug therapy
CPT/HCPCS: 82962

== ENCOUNTER 2017-07-08 09:35 | Outpatient (RCR) | payer OTHER ==
[2017-04-11 14:28] LABS: BASOPHILS % (AUTO) 0 % (0-10); EOSINOPHILS # (AUTO) 0.2 10^3/uL (0.0-0.3); EOSINOPHILS % (AUTO) 4 % (0-10); LYMPHOCYTES # (AUTO) 1.2 X 10^3 (1.0-4.0); LYMPHOCYTES % (AUTO) 27 % (12-44); MEAN CORPUSCULAR HEMOGLOBIN 24 PG (25-34); MEAN CORPUSCULAR HGB CONC 30 G/DL (32-36); MEAN CORPUSCULAR VOLUME 80 FL (80-99); MEAN PLATELET VOLUME 9.1 FL (7.4-10.4); MONOCYTES # (AUTO) 0.6 X 10^3 (0.0-1.0); MONOCYTES % (AUTO) 13 % (0-12); NEUTROPHILS # (AUTO) 2.5 X 10^3 (1.8-7.8); NEUTROPHILS % (AUTO) 56 % (42-75); PLATELET COUNT 192 10^3/uL (130-400); RED BLOOD COUNT 3.87 10^6/uL (4.35-5.85); RED CELL DISTRIBUTION WIDTH 18.2 % (10.0-14.5); WHITE BLOOD COUNT 4.5 10^3/uL (4.3-11.0)
[2017-04-11 14:50] LABS: ALANINE AMINOTRANSFERASE 37 U/L (0-55); ALBUMIN 4.1 GM/DL (3.2-4.5); ANION GAP 8 MMOL/L (5-14); ASPARTATE AMINO TRANSFERASE 33 U/L (5-34); BILIRUBIN,TOTAL 0.4 MG/DL (0.1-1.0); BLOOD UREA NITROGEN 22 MG/DL (7-18); BUN/CREATININE RATIO 19; CALCIUM 9.5 MG/DL (8.5-10.1); CARBON DIOXIDE 27 MMOL/L (21-32); CHLORIDE 105 MMOL/L (98-107); CREATININE SERUM 1.17 MG/DL (0.60-1.30); GFR ESTIMATED > 60; GLUCOSE 116 MG/DL (70-105); POTASSIUM 4.5 MMOL/L (3.6-5.0); SODIUM 140 MMOL/L (135-145); TOTAL PROTEIN 7.9 GM/DL (6.4-8.2)
[2017-05-10 15:10] LABS: BASOPHILS % (AUTO) 1 % (0-10); EOSINOPHILS # (AUTO) 0.2 10^3/uL (0.0-0.3); EOSINOPHILS % (AUTO) 4 % (0-10); LYMPHOCYTES # (AUTO) 1.2 X 10^3 (1.0-4.0); LYMPHOCYTES % (AUTO) 31 % (12-44); MEAN CORPUSCULAR HEMOGLOBIN 25 PG (25-34); MEAN CORPUSCULAR HGB CONC 31 G/DL (32-36); MEAN CORPUSCULAR VOLUME 81 FL (80-99); MEAN PLATELET VOLUME 9.9 FL (7.4-10.4); MONOCYTES # (AUTO) 0.4 X 10^3 (0.0-1.0); MONOCYTES % (AUTO) 10 % (0-12); NEUTROPHILS # (AUTO) 2.1 X 10^3 (1.8-7.8); NEUTROPHILS % (AUTO) 54 % (42-75); PLATELET COUNT 186 10^3/uL (130-400); RED BLOOD COUNT 4.12 10^6/uL (4.35-5.85); RED CELL DISTRIBUTION WIDTH 17.4 % (10.0-14.5); WHITE BLOOD COUNT 3.9 10^3/uL (4.3-11.0)
[2017-05-10 15:28] LABS: ALANINE AMINOTRANSFERASE 42 U/L (0-55); ALBUMIN 3.8 GM/DL (3.2-4.5); ANION GAP 6 MMOL/L (5-14); ASPARTATE AMINO TRANSFERASE 32 U/L (5-34); BILIRUBIN,TOTAL 0.4 MG/DL (0.1-1.0); BLOOD UREA NITROGEN 16 MG/DL (7-18); BUN/CREATININE RATIO 15; CALCIUM 9.1 MG/DL (8.5-10.1); CARBON DIOXIDE 29 MMOL/L (21-32); CHLORIDE 104 MMOL/L (98-107); CREATININE SERUM 1.04 MG/DL (0.60-1.30); GFR ESTIMATED > 60; GLUCOSE 191 MG/DL (70-105); SODIUM 139 MMOL/L (135-145); TOTAL PROTEIN 7.8 GM/DL (6.4-8.2)
[2017-05-10 16:57] LABS: %SAT TOTAL IRON BINDING CAPIC 19 % (15-50); TIBC 516 ug/dL (280-380)
[2017-05-13 07:32] LABS: UIBC 416 ug/dL
[2017-07-08 10:01] LABS: BASOPHILS % (AUTO) 1 % (0-10); EOSINOPHILS # (AUTO) 0.2 10^3/uL (0.0-0.3); EOSINOPHILS % (AUTO) 4 % (0-10); LYMPHOCYTES # (AUTO) 0.9 X 10^3 (1.0-4.0); LYMPHOCYTES % (AUTO) 21 % (12-44); MEAN CORPUSCULAR HEMOGLOBIN 22 PG (25-34); MEAN CORPUSCULAR HGB CONC 29 G/DL (32-36); MEAN CORPUSCULAR VOLUME 77 FL (80-99); MEAN PLATELET VOLUME 9.6 FL (7.4-10.4); MONOCYTES # (AUTO) 0.4 X 10^3 (0.0-1.0); MONOCYTES % (AUTO) 9 % (0-12); NEUTROPHILS # (AUTO) 2.7 X 10^3 (1.8-7.8); NEUTROPHILS % (AUTO) 66 % (42-75); PLATELET COUNT 217 10^3/uL (130-400); RED BLOOD COUNT 3.69 10^6/uL (4.35-5.85); RED CELL DISTRIBUTION WIDTH 16.6 % (10.0-14.5); WHITE BLOOD COUNT 4.1 10^3/uL (4.3-11.0)
[2017-07-08 10:22] LABS: ALANINE AMINOTRANSFERASE 47 U/L (0-55); ALBUMIN 3.9 GM/DL (3.2-4.5); ANION GAP 7 MMOL/L (5-14); ASPARTATE AMINO TRANSFERASE 32 U/L (5-34); BILIRUBIN,TOTAL 0.3 MG/DL (0.1-1.0); BLOOD UREA NITROGEN 20 MG/DL (7-18); BUN/CREATININE RATIO 17; CALCIUM 8.9 MG/DL (8.5-10.1); CARBON DIOXIDE 26 MMOL/L (21-32); CHLORIDE 103 MMOL/L (98-107); CREATININE SERUM 1.15 MG/DL (0.60-1.30); GFR ESTIMATED > 60; GLUCOSE 251 MG/DL (70-105); POTASSIUM 4.5 MMOL/L (3.6-5.0); SODIUM 136 MMOL/L (135-145); TOTAL PROTEIN 7.9 GM/DL (6.4-8.2)
== END 2017-07-10 | disposition home or self-care (01) ==
LOC: ONC 09:35
PROVIDERS: ATTEND Internal Medicine Hematology & Oncology
DX: D50.9 Iron deficiency anemia, unspecified (principal); E11.9 Type 2 diabetes mellitus without complications; B18.2 Chronic viral hepatitis C; I10 Essential (primary) hypertension; E78.5 Hyperlipidemia, unspecified; F17.210 Nicotine dependence, cigarettes, uncomplicated; F10.99 Alcohol use, unspecified with unspecified alcohol-induced disorder; E66.9 Obesity, unspecified; Z68.38 Body mass index [BMI] 38.0-38.9, adult; Z79.899 Other long term (current) drug therapy
CPT/HCPCS: 36415; 80053; 82728; 83540; 83550; 85025; 99213

== ENCOUNTER 2017-11-14 08:51 | Outpatient (RCR) | payer OTHER ==
[2017-08-22 12:30] LABS: BASOPHILS % (AUTO) 0 % (0-10); EOSINOPHILS # (AUTO) 0.2 10^3/uL (0.0-0.3); EOSINOPHILS % (AUTO) 4 % (0-10); HEMATOCRIT 34 % (40-54); HEMOGLOBIN 10.2 G/DL (13.3-17.7); LYMPHOCYTES # (AUTO) 1.2 X 10^3 (1.0-4.0); LYMPHOCYTES % (AUTO) 26 % (12-44); MEAN CORPUSCULAR HEMOGLOBIN 23 PG (25-34); MEAN CORPUSCULAR HGB CONC 30 G/DL (32-36); MEAN CORPUSCULAR VOLUME 78 FL (80-99); MEAN PLATELET VOLUME 9.2 FL (7.4-10.4); MONOCYTES # (AUTO) 0.5 X 10^3 (0.0-1.0); MONOCYTES % (AUTO) 11 % (0-12); NEUTROPHILS # (AUTO) 2.8 X 10^3 (1.8-7.8); NEUTROPHILS % (AUTO) 59 % (42-75); PLATELET COUNT 215 10^3/uL (130-400); RED BLOOD COUNT 4.35 10^6/uL (4.35-5.85); WHITE BLOOD COUNT 4.7 10^3/uL (4.3-11.0)
[2017-08-22 12:48] LABS: ALANINE AMINOTRANSFERASE 46 U/L (0-55); ALKALINE PHOSPHATASE 72 U/L (40-136); BILIRUBIN,TOTAL 0.4 MG/DL (0.1-1.0); BUN/CREATININE RATIO 16; CALCIUM 9.5 MG/DL (8.5-10.1); CARBON DIOXIDE 28 MMOL/L (21-32); CHLORIDE 104 MMOL/L (98-107); CREATININE SERUM 0.99 MG/DL (0.60-1.30); GFR ESTIMATED > 60; GLUCOSE 139 MG/DL (70-105); SODIUM 138 MMOL/L (135-145); TOTAL PROTEIN 7.9 GM/DL (6.4-8.2)
[~2017-11-14 08:51] MED LIST changes: +ASPI-789 PO; -ASPI1TAB22 PO; -FERR-74 PO; +FERR325T18 PO; +HYDR-34 PO; -HYDR-3816 PO
[2017-11-14 09:07] LABS: BASOPHILS % (AUTO) 0 % (0-10); EOSINOPHILS # (AUTO) 0.2 10^3/uL (0.0-0.3); EOSINOPHILS % (AUTO) 4 % (0-10); HEMATOCRIT 38 % (40-54); HEMOGLOBIN 12.6 G/DL (13.3-17.7); LYMPHOCYTES # (AUTO) 1.2 X 10^3 (1.0-4.0); LYMPHOCYTES % (AUTO) 27 % (12-44); MEAN CORPUSCULAR HEMOGLOBIN 26 PG (25-34); MEAN CORPUSCULAR HGB CONC 33 G/DL (32-36); MEAN CORPUSCULAR VOLUME 80 FL (80-99); MONOCYTES # (AUTO) 0.5 X 10^3 (0.0-1.0); MONOCYTES % (AUTO) 10 % (0-12); NEUTROPHILS # (AUTO) 2.7 X 10^3 (1.8-7.8); NEUTROPHILS % (AUTO) 59 % (42-75); PLATELET COUNT 178 10^3/uL (130-400); WHITE BLOOD COUNT 4.6 10^3/uL (4.3-11.0)
[2017-11-14 09:28] LABS: ALANINE AMINOTRANSFERASE 49 U/L (0-55); ALBUMIN 3.9 GM/DL (3.2-4.5); ALKALINE PHOSPHATASE 71 U/L (40-136); BILIRUBIN,TOTAL 0.5 MG/DL (0.1-1.0); BUN/CREATININE RATIO 19; CALCIUM 9.3 MG/DL (8.5-10.1); CARBON DIOXIDE 25 MMOL/L (21-32); CHLORIDE 102 MMOL/L (98-107); CREATININE SERUM 1.08 MG/DL (0.60-1.30); GFR ESTIMATED > 60; GLUCOSE 264 MG/DL (70-105); POTASSIUM 4.5 MMOL/L (3.6-5.0); SODIUM 134 MMOL/L (135-145); TOTAL PROTEIN 7.9 GM/DL (6.4-8.2)
== END 2017-11-20 | disposition home or self-care (01) ==
LOC: ONC 08:51
PROVIDERS: ATTEND Internal Medicine Hematology & Oncology
DX: D50.9 Iron deficiency anemia, unspecified (principal); E11.9 Type 2 diabetes mellitus without complications; B18.2 Chronic viral hepatitis C; I10 Essential (primary) hypertension; E78.5 Hyperlipidemia, unspecified; F17.210 Nicotine dependence, cigarettes, uncomplicated; F10.99 Alcohol use, unspecified with unspecified alcohol-induced disorder; E66.9 Obesity, unspecified; Z68.38 Body mass index [BMI] 38.0-38.9, adult; Z79.899 Other long term (current) drug therapy
CPT/HCPCS: 36415; 80053; 82728; 83540; 85025; 99213

== ENCOUNTER 2018-01-27 08:54 | Outpatient (RCR) | payer SELFPAY ==
[2018-01-13 10:13] LABS: BASOPHILS % (AUTO) 0 % (0-10); EOSINOPHILS # (AUTO) 0.1 10^3/uL (0.0-0.3); EOSINOPHILS % (AUTO) 2 % (0-10); HEMATOCRIT 39 % (40-54); HEMOGLOBIN 13.2 G/DL (13.3-17.7); LYMPHOCYTES # (AUTO) 1.3 X 10^3 (1.0-4.0); LYMPHOCYTES % (AUTO) 27 % (12-44); MEAN CORPUSCULAR HEMOGLOBIN 28 PG (25-34); MEAN CORPUSCULAR HGB CONC 34 G/DL (32-36); MEAN CORPUSCULAR VOLUME 83 FL (80-99); MONOCYTES # (AUTO) 0.4 X 10^3 (0.0-1.0); MONOCYTES % (AUTO) 9 % (0-12); NEUTROPHILS % (AUTO) 63 % (42-75); PLATELET COUNT 158 10^3/uL (130-400); RED BLOOD COUNT 4.69 10^6/uL (4.35-5.85); WHITE BLOOD COUNT 4.9 10^3/uL (4.3-11.0)
[2018-01-13 10:36] LABS: ALBUMIN 4.1 GM/DL (3.2-4.5); BILIRUBIN,TOTAL 0.4 MG/DL (0.1-1.0); CALCIUM 9.4 MG/DL (8.5-10.1); CREATININE SERUM 1.25 MG/DL (0.60-1.30); TOTAL PROTEIN 8.1 GM/DL (6.4-8.2)
[~2018-01-27 08:54] MED LIST changes: -METF1000 PO; +METF10002 PO; -METF500T4 PO; +METF500T5 PO; -PIOG45TA18 PO; +PIOG45TA65 PO
[2018-03-23] MEDS ORDERED: ASPI-983 PO (14:17)
== END 2018-04-13 | disposition home or self-care (01) ==
LOC: ONC 08:54
PROVIDERS: ATTEND Internal Medicine Hematology & Oncology
DX: D50.9 Iron deficiency anemia, unspecified (principal); E11.9 Type 2 diabetes mellitus without complications; B18.2 Chronic viral hepatitis C; I10 Essential (primary) hypertension; E78.5 Hyperlipidemia, unspecified; F17.210 Nicotine dependence, cigarettes, uncomplicated; F10.99 Alcohol use, unspecified with unspecified alcohol-induced disorder; E66.9 Obesity, unspecified; Z68.38 Body mass index [BMI] 38.0-38.9, adult; Z79.899 Other long term (current) drug therapy
CPT/HCPCS: 80053; 82728; 83540; 85025; 99213

== ENCOUNTER → 2018-03-18 | Outpatient (CLI) | payer SELFPAY ==
[~2018-03-18] MED LIST changes: +PIOG45TA18 PO; -PIOG45TA65 PO
== END | disposition home or self-care (01) ==
LOC: PREOP 05:39
PROVIDERS: ATTEND Surgery
DX: Z01.818 Encounter for other preprocedural examination (principal)

== ENCOUNTER 2018-03-21 21:44 | Observation (INO) | payer SELFPAY ==
[~2018-03-21] VITALS: Ht 177.8 cm; Wt 107.7 kg
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
--- OUTSIDE RECORDS SUMMARY | 2018-03-21 21:49 | XMS REPORT ---
Author Author GRAZYNA FUENTES 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 Active 6931799579362 Problem Mixed hyperlipidemia E78.2 Active 536362697 Problem Pure hypercholesterolemia, unspecified E78.00 Active 095541418 Problem Iron deficiency anemia due to chronic blood loss D50.0 Active 15660603 Problem Erectile dysfunction N52.9 Active 899580818 Problem Type 2 diabetes mellitus with other specified complication E11.69 Active 989020417954005 Problem Anemia D64.9 Active 251335194 Problem Proteinuria R80.9 Active 13046771 Problem HTN (hypertension) I10 Active 53932905 Problem Alcohol abuse F10.10 Active 01659991 Problem Drug abuse and dependence F19.20 Active 6315008 Problem Environmental allergies Z91.09 Active 012520660 Problem Dental caries, unspecified K02.9 Active 01497824 ALLERGIES No Information SOCIAL HISTORY Never Assessed PLAN OF CARE VITAL SIGNS MEDICATIONS Medication Instructions Dosage Frequency Start Date End Date Duration Status Pravastatin Sodium 20 mg Orally Once a day 1 tablet 24h 90 days Active Diovan 40 mg Orally Once a day 1 tablet 24h 90 days Active Metformin HCl 1000 MG Orally Twice a day 1 tablet 12h 30 days Active Flomax 0.4 MG Orally Once a day 1 capsule 24h Active Insulin Syringe/Needle 28G X 1/2 for use with Levemir 2 times a day 1 Syringe 12h Dec, Active Actos 45 MG Orally Once a day 1 tablet 24h 90 days Active Proventil HFA 108 (90 Base) MCG/ACT Inhalation every 4 hrs 2 puffs as needed 4h Dec, Active Levemir 100 UNIT/ML Subcutaneous daily 100 units 24h Active Claritin 10 mg Orally Once a day 1 tablet 24h Active Ferrous Sulfate 325 (65 Fe) MG Orally 3 times a day 1 tablet 8h Active Viagra 100 MG Orally Once a day 1 tablet as needed 24h Active RESULTS No Results PROCEDURES No Known procedures IMMUNIZATIONS No Known Immunizations MEDICAL (GENERAL) HISTORY [...] Iron Def. Anemia, Chest pain, DM type 2-[facility] 0286
--- OUTSIDE RECORDS SUMMARY | 2018-03-21 21:50 | XMS REPORT ---
Author Author MARILEE Kim Organization [facility] Address [address] [place] [address] Care Team Providers Care Flight Attendant Inflight Services Name Role Phone MARILEE Kim Unavailable PROBLEMS Type Condition ICD9-CM Code CQP19-JW Code Onset Dates Condition Status SNOMED Code Problem Iron deficiency anemia due to chronic blood loss D50.0 Active 98487358 Problem Pure hypercholesterolemia, unspecified E78.00 Active 898054430 Problem Hypercholesteremia E78.0 Active 550887376 Problem Other male erectile dysfunction N52.8 Active 616153900 Problem Proteinuria R80.9 Active 26098969 Problem Chronic fatigue R53.82 Active 56336869 Problem Environmental allergies Z91.09 Active 182272253 Problem Alcohol abuse F10.10 Active 18802044 Problem Benign prostatic hyperplasia without lower urinary tract symptoms N40.0 Active 210552345 Problem Chronic hepatitis C without hepatic coma B18.2 Active 915888769 Problem Sexual dysfunction R37 Active 79495291 Problem Other iron deficiency anemia D50.8 Active 50900176 Problem Erectile dysfunction N52.9 Active 524971929 Problem Drug abuse and dependence F19.20 Active 6883477 Problem HTN (hypertension) I10 Active 57608562 Problem Type 2 diabetes mellitus with other specified complication E11.69 Active 954674497435837 Problem Chronic obstructive pulmonary disease, unspecified COPD type J44.9 Active 75165205 Problem Epididymitis N45.1 Active 36907141 Problem Dental caries, unspecified K02.9 Active 74917160 Problem Mixed hyperlipidemia E78.2 Active 565851879 Problem Anemia D64.9 Active 338550997 Problem Essential hypertension I10 Active 15964521 Problem 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 Active 0478206727406 ALLERGIES No Information ENCOUNTERS Encounter Location Date Diagnosis [facility] [address] [facility] [id number] [address] Mar, [facility] [id number] [address] Jan, [facility] [id number] [place] [address]- 7111 Jan, [facility] [id number] [place] [address]159- 6560 Jan, [facility] [id number] [place] [address]48- 2969 Jan, Type 2 diabetes mellitus with other [...] anemia due to chronic blood loss D50.0 [facility] [address] [place] [address] 39857- 4439 Nov, Dental caries K02.9 [facility] [address] [place] [id number] Nov, Dental caries K02.9 [facility] [address] [place] [address] 13061- 5722 Oct, HTN (hypertension) I10 [facility] [address] [address] Sep, Type 2 diabetes mellitus with other specified complication E11.69 [facility] [address], [place] [address] Sep, [place] [id number] [place] [address]- 9318 Aug, HTN (hypertension) I10 ; Type 2 diabetes mellitus with other specified complication E11.69 ; Benign prostatic hyperplasia without lower urinary tract symptoms N40.0 and Other iron deficiency anemia D50.8 [facility] [id number] [id number] Aug, [facility] [id number] [id number] Aug, [facility] [id number] [id number] Jul, Dental examination Z01.20 [facility] [id number] [place] [address] 81280- 5147 Jul, Type 2 diabetes mellitus with other specified complication E11.69 [facility] [place] [id number] [place] [address] 24253- 2526 May, [place] [id number] [place] [address] 96770- 4065 Apr, Type 2 diabetes mellitus with other specified complication E11.69 ; Proteinuria R80.9 ; HTN (hypertension) I10 ; Erectile dysfunction N52.9 ; Chronic obstructive pulmonary disease, unspecified COPD type J44.9 ; Chronic hepatitis C without hepatic coma B18.2 ; 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 ; Iron deficiency anemia due to chronic blood loss D50.0 and Hypercholesteremia E78.0 [facility] [id number] [place] [address] 12445- 2877 Mar, Diabetes mellitus E11.9 ; Hypercholesteremia E78.0 and Type 2 diabetes mellitus with other specified complication E11.69 [place] [address], [place] [address] Mar, [place] [address] [place] [address]37- 4183 Mar, Iron deficiency anemia due to chronic blood loss D50.0 [place] [address] [place] [address] 46315- 3774 Mar, Type 2 diabetes mellitus with other specified complication E11.69 and Iron deficiency anemia due to chronic blood loss D50.0 [facility] [id number] [address] 07 Mar, 2017 Iron deficiency anemia due to chronic blood loss D50.0 [facility] [id number] [place] [address] 95837- 1421 February, [facility] [id number] [place] [address] 78560- 3098 February, Iron deficiency anemia due to chronic blood loss D50.0 [facility] [id number] [place] [address] 60678- 8581 February, [facility] [id number] [place] [address] 18821- 7559 February, Anemia D64.9 [facility] [id number] [place] [address] 50890- 3779 February, Anemia D64.9 and 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 [address] [id number] [place] [address] 09176- 6949 Jan, Chest discomfort R07.89 ; Type 2 diabetes mellitus with other specified complication E11.69 ; HTN (hypertension) I10 ; Mixed hyperlipidemia E78.2 ; Dyspnea on exertion R06.09 and Tobacco use Z72.0 [address] [place] [address] 72368- 1507 16 Dec, 2016 [place] [id number] [place] [address] 44551- 5715 Dec, [place] [id number] [place] [address] 65684- 3814 07 Dec, 2016 Diabetes mellitus E11.9 ; HTN (hypertension) I10 ; Hypercholesteremia E78.0 ; Alcohol abuse F10.10 ; Proteinuria R80.9 ; Essential hypertension I10 ; Chronic hepatitis C with hepatic coma B18.2 ; Benign nodular prostatic hyperplasia with lower urinary tract symptoms N40.1 and Anemia D64.9 [place] [id number] [place] [address] 14314- 3484 Jul, Epididymitis N45.1 and Testicle swelling N50.89 [place] [address] [address] Jul, Type 2 diabetes mellitus with other specified complication E11.69 ; Hypercholesteremia E78.0 ; Environmental allergies Z91.09 ; Erectile dysfunction N52.9 ; Alcohol abuse F10.10 ; Drug abuse and dependence F19.20 ; Epididymitis N45.1 ; Essential hypertension I10 and Chronic obstructive pulmonary disease, unspecified COPD type J44.9 [place] [address] [address]42- 1168 Jul, [address] [address]- [address] Jul, Epididymitis, left N45.[address] 35697- 4757 February, Diabetes mellitus E11.9 [place] [address] [address]- [address] Jan, Dental examination Z01.20 and Dental caries K02.[address] 99783- 5632 Jan, Type 2 diabetes mellitus with other specified complication E11.69 ; HTN (hypertension) I10 ; Hypercholesteremia E78.0 ; Alcohol abuse F10.10 ; Proteinuria R80.9 and Dental caries, unspecified K02.9 [place] [id number] [place] [address] 44350- 3425 Dec, [address] 62757- 7843 Dec, Sebaceous cyst L72.3 ; HTN (hypertension) I10 ; Hypercholesteremia E78.0 ; Proteinuria R80.9 and Anemia D64.[address] 73711- 8886 Dec, Anemia D64.9 [facility] [id number] [place] [address] 33910- 9149 Dec, Physical exam, pre-employment Z02.1 ; Drug abuse and dependence F19.20 ; UTI (urinary tract infection) N39.0 ; Proteinuria R80.9 ; Cellulitis L03.90 and Type 2 diabetes mellitus with other specified complication E11.69 [place] [address] 34586- 3463 29 Nov, 2016 Type 2 diabetes mellitus with other specified complication E11.69 ; Hepatitis C 070.70 ; Proteinuria R80.9 ; Diabetes mellitus E11.9 ; HTN (hypertension) I10 ; Hypercholesteremia E78.0 ; Environmental allergies Z91.09 ; Erectile dysfunction N52.9 and Alcohol abuse F10.10 [place] [address] 92828- 3707 Oct, [facility] [address] [id number] Sep, Encounter for dental examination Z01.20 ; Dental examination Z01.20 and Dental caries K02.9 [place] [address] 62130- 6099 Aug, Tooth infection K04.7 [place] [address] 53080- 4184 Aug, [place] [address] 10792- 7280 Jul, [place] [address] 24258- 6613 Jun, Shoulder pain 719.41 [place] [address] 68494- 7048 Jun, Hepatitis C 070.70 [place] [address] 32873- 6634 Jun, Essential hypertension, benign 401.1 ; Psychosexual dysfunction with inhibited sexual excitement 302.72 ; Proteinuria 791.0 ; Unspecified viral hepatitis C without hepatic coma 070.70 ; Diabetes mellitus without mention of complication, type II or unspecified type, uncontrolled 250.02 ; Joint pain 719.40 ; Hepatitis C 070.70 and Hypercholesterolemia 272.0 [facility] [address], [place] [address] 04 Jun, 2015 [facility] [id number] [place] [address] 88160- 8459 Apr, [facility] [id number] [address] 79[address] Apr, [facility] [id number] [place] [address] 33989- 2952 Mar, [facility] [address] [address] Jan, [facility] [id number] [place] [address] 56098- 5050 Jan, [facility] [address], [place] [address] Dec, [facility] [address] [address] 6[address] Dec, [facility] [address], [place] [address]- 0907 Dec, [facility] [address], [place] [address]- 9904 Dec, [facility] [address] Jun, [facility] [address] Jun, [facility] [address] Jun, [facility] [address] [address]13 Jun, [facility] [place] [facility] [address] [id number] [place] [address]- 1376 February, [facility] [place] [facility] [address] [id number] [place] [address]- 3437 February, [facility] [place] [facility] [address] [id number] [place] [address]- 9781 February, [facility] [place] [facility] [address] [id number] [place] [address]- 2502 February, [facility] [place] [facility] [address] [id number] [place] [address]- 3588 February, [facility] [place] [facility] [address] [id number] [place] [address]- 8760 Dec, [facility] [place] [facility] [address] [id number] [place] [address]- 3725 Dec, [facility] [place] [facility] [address] [id number] [place] [address]- 2836 Oct, [facility] [place] [facility] [address] [id number] [place] [address]- 3920 Oct, [facility] [place] [facility] [address] [id number], [place] [address]- 0271 Sep, [facility] [place] [facility] [address] [id number], [place] [address]- 9882 Sep, [facility] [place] [facility] [address] [id number] [address]- 6222 Jul, [facility] [place] [facility] [address] [id number] [place] [address]- 7012 Jul, [facility] [place] [facility] [address] [id number], [place] [address]- 1204 Jul, [facility] [place] [facility] [address] [id number] [place] [address]- 0243 Jul, [facility] [place] [facility] [address] [id number] [place] [address]- 6754 24 Jun, 2013 [facility] [address] [id number] [place] [address]- 6839 Jun, [facility] [address] [id number] [place] [address]- 7912 Apr, [facility] [address] [id number] [place] [address]- 0466 Apr, [facility] [address] [id number] [place] [address]- 4939 Mar, [facility] [address] [id number] [place] [address]- 8617 February, [facility] [address] [id number] [place] [address]- 9514 February, [facility] [address] [id number] [place] [address]- 3383 February, [facility] [address] [id number] [place] [address]- 2525 February, [facility] [address] [id number] [place] [address]- 4320 February, [facility] [address] [id number] [place] [address]- 6251 February, [facility] [address] [id number] [place] [address]- 0735 February, [facility] [address] [id number] [place] [address]- 2546 February, [facility] [address] [id number] [place] [address]- 6565 Dec, [facility] [address] [id number] [place] [address]- 0526 Nov, [facility] [address] [id number] [place] [address]- 9456 Nov, [facility] [address] [facility] [id number] [address]- 1478 Nov, [facility] [address] [facility] [id number], [place] [address]- 4296 Oct, [facility] [address] [facility] [id number] [place] [address]- 2841 Sep, [facility] [address] [facility] [id number] [place] [address] Sep, [facility] [address] [facility] [id number] [place] [address]- 8974 Sep, [facility] [address] [facility] [id number] [place] [address]- 6773 Sep, [facility] [address] [id number] [address]- 6042 Sep, [facility] [id number], [place] [address]- 8724 Sep, [facility] [id number], [place] [address]- 4931 Sep, [facility] [id number] [address]- 5388 Sep, [facility] [id number], [place] [address]- 9281 Sep, [facility] [address] [facility] [id number], [place] [address]- 6589 Sep, [facility] [address] [facility] [id number] 3760 Sep, [facility] [address] [facility] [id number] [address] Sep, [facility] [id number] [address] Aug, IMMUNIZATIONS No Known Immunizations SOCIAL HISTORY Never Assessed REASON FOR VISIT Other PLAN OF CARE VITAL SIGNS MEDICATIONS Unknown Medications RESULTS No Results PROCEDURES No Known procedures [...] Iron Def. Anemia, Chest pain, DM type 2-[facility] 9
--- OUTSIDE RECORDS SUMMARY | 2018-03-21 21:50 | XMS REPORT ---
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 Active 4604484540118 Problem Mixed hyperlipidemia E78.2 Active 768598367 Problem Pure hypercholesterolemia, unspecified E78.00 Active 197817554 Problem Iron deficiency anemia due to chronic blood loss D50.0 Active 31693983 Problem Erectile dysfunction N52.9 Active 443254682 Problem Type 2 diabetes mellitus with other specified complication E11.69 Active 305190719879235 Problem Anemia D64.9 Active 314990386 Problem Proteinuria R80.9 Active 76575952 Problem HTN (hypertension) I10 Active 42543594 Problem Alcohol abuse F10.10 Active 97808250 Problem Drug abuse and dependence F19.20 Active 3045623 Problem Environmental allergies Z91.09 Active 270458120 Problem Dental caries, unspecified K02.9 Active 78196324 ALLERGIES Substance Reaction Event Type Date Status Topamax nausea Drug Allergy February, Active SOCIAL HISTORY Never Assessed PLAN OF CARE Activity Details Follow Up 1 Week Reason: VITAL SIGNS Height 70 in 2017-02-19 Weight 234.3 lbs 2017-02-19 Temperature 98.1 degrees Fahrenheit 2017-02-19 Heart Rate 92 bpm 2017-02-19 Respiratory Rate 22 2017-02-19 BMI 33.61 kg/m2 2017-02-19 Blood pressure systolic 130 mmHg 2017-02-19 Blood pressure diastolic 78 mmHg 2017-02-19 MEDICATIONS Medication Instructions Dosage Frequency Start Date End Date Duration Status Actos 45 MG Orally Once a day 1 tablet 24h 90 days Active Insulin Syringe/Needle 28G X 1/2 for use with Levemir 2 times a day 1 Syringe 12h Dec, Active Aspirin Adult Low Dose 81 MG Orally Once a day 1 tablet 24h Active Metformin HCl 1000 MG Orally Twice a day 1 tablet 12h 30 days Active Levemir 100 UNIT/ML Subcutaneous daily 100 units 24h Active Proventil HFA 108 (90 Base) MCG/ACT Inhalation every 4 hrs 2 puffs as needed 4h Dec, Active Pravastatin Sodium 20 mg Orally Once a day 1 tablet 24h 90 days Active Diovan 40 mg Orally Once a day 1 tablet 24h 90 days Active RESULTS Name Result Date Reference Range TYPE AND CROSS (OUTSIDE ORDER) 2017-02-19 PROCEDURES No Known procedures IMMUNIZATIONS No Known [...] Iron Def. Anemia, Chest pain, DM type 2-[facility] 7581
--- OUTSIDE RECORDS SUMMARY | 2018-03-21 21:51 | XMS REPORT ---
Author Author MARILEE FULLER Organization 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 Active 5092606130469 Problem Mixed hyperlipidemia E78.2 Active 972623590 Problem Pure hypercholesterolemia, unspecified E78.00 Active 741940548 Problem Iron deficiency anemia due to chronic blood loss D50.0 Active 27989683 Problem Erectile dysfunction N52.9 Active 904296030 Problem Type 2 diabetes mellitus with other specified complication E11.69 Active 850327079492473 Problem Anemia D64.9 Active 236925345 Problem Proteinuria R80.9 Active 28718958 Problem HTN (hypertension) I10 Active 40853583 Problem Alcohol abuse F10.10 Active 29713856 Problem Drug abuse and dependence F19.20 Active 4398013 Problem Environmental allergies Z91.09 Active 712175185 Problem Dental caries, unspecified K02.9 Active 21096011 ALLERGIES No Information SOCIAL HISTORY Never Assessed PLAN OF CARE VITAL SIGNS MEDICATIONS Medication Instructions Dosage Frequency Start Date End Date Duration Status Viagra 100 mg Orally Once a day 1 tablet as needed 24h Dec,Jan 10 days Active Proventil HFA 108 (90 Base) MCG/ACT Inhalation every 4 hrs 2 puffs as needed 4h Dec, Active RESULTS No Results PROCEDURES No Known [...] Iron Def. Anemia, Chest pain, DM type 2-[facility] 2616
--- OUTSIDE RECORDS SUMMARY | 2018-03-21 21:51 | XMS REPORT ---
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 Active 2752032072591 Problem Mixed hyperlipidemia E78.2 Active 218469171 Problem Pure hypercholesterolemia, unspecified E78.00 Active 346204954 Problem Iron deficiency anemia due to chronic blood loss D50.0 Active 65279042 Problem Erectile dysfunction N52.9 Active 764649732 Problem Type 2 diabetes mellitus with other specified complication E11.69 Active 692312207731814 Problem Anemia D64.9 Active 927056468 Problem Proteinuria R80.9 Active 78295067 Problem HTN (hypertension) I10 Active 81368973 Problem Alcohol abuse F10.10 Active 21662958 Problem Drug abuse and dependence F19.20 Active 8121095 Problem Environmental allergies Z91.09 Active 519869425 Problem Dental caries, unspecified K02.9 Active 49656943 ALLERGIES Substance Reaction Event Type Date Status Topamax nausea Drug Allergy Jan, Active SOCIAL HISTORY Never Assessed PLAN OF CARE Activity Details Follow Up prn Reason: VITAL SIGNS Height 70 in 2017-01-23 Weight 234 lbs 2017-01-23 Heart Rate 96 bpm 2017-01-23 Oximetry 98 % 2017-01-23 BMI 33.57 kg/m2 2017-01-23 Blood pressure systolic 122 mmHg 2017-01-23 Blood pressure diastolic 60 mmHg 2017-01-23 MEDICATIONS Medication Instructions Dosage Frequency Start Date End Date Duration Status Actos 45 MG Orally Once a day 1 tablet 24h 90 days Active Metformin HCl 1000 MG Orally Twice a day 1 tablet 12h 30 days Active Claritin 10 mg Orally Once a day 1 tablet 24h Active Proventil HFA 108 (90 Base) MCG/ACT Inhalation every 4 hrs 2 puffs as needed 4h Dec, Active Insulin Syringe/Needle 28G X 1/2 for use with Levemir 2 times a day 1 Syringe 12h Dec, Active Diovan 40 mg Orally Once a day 1 tablet 24h 90 days Active Levemir 100 UNIT/ML Subcutaneous daily 100 units 24h Active Pravastatin Sodium 20 mg Orally Once a day 1 tablet 24h 90 days Active Viagra 100 mg Orally Once a day 1 tablet as needed 24h Dec,Jan 10 days Active RESULTS No Results PROCEDURES Procedure Date Ordered Result Body Site EKG, TRACING (IN-HOUSE) 2017-01-23 N/A MEASURE BLOOD OXYGEN LEVEL January 23, 2017 ELECTROCARDIOGRAM, TRACING January 23, 2017 IMMUNIZATIONS No Known Immunizations MEDICAL (GENERAL) [...] Iron Def. Anemia, Chest pain, DM type 2-[facility] 8
--- OUTSIDE RECORDS SUMMARY | 2018-03-21 21:51 | XMS REPORT ---
Author Author LALO LOPEZ Organization [facility] Address [address] [place] [address] Care Team Providers Care Interior Design Project Manager Name Role Phone JOHN LALO Unavailable PROBLEMS Type Condition ICD9-CM Code NQJ28-AI Code Onset Dates Condition Status SNOMED Code Problem Iron deficiency anemia due to chronic blood loss D50.0 Active 64440202 Problem Pure hypercholesterolemia, unspecified E78.00 Active 375639764 Problem Hypercholesteremia E78.0 Active 834399891 Problem Other male erectile dysfunction N52.8 Active 188269966 Problem Proteinuria R80.9 Active 98811219 Problem Chronic fatigue R53.82 Active 22924798 Problem Environmental allergies Z91.09 Active 048616693 Problem Alcohol abuse F10.10 Active 76028923 Problem Benign prostatic hyperplasia without lower urinary tract symptoms N40.0 Active 896869662 Problem Chronic hepatitis C without hepatic coma B18.2 Active 593737547 Problem Sexual dysfunction R37 Active 08517400 Problem Other iron deficiency anemia D50.8 Active 64539217 Problem Erectile dysfunction N52.9 Active 797207815 Problem Drug abuse and dependence F19.20 Active 3040877 Problem HTN (hypertension) I10 Active 55929433 Problem Type 2 diabetes mellitus with other specified complication E11.69 Active [id number] Problem Chronic obstructive pulmonary disease, unspecified COPD type J44.9 Active 62149538 Problem Epididymitis N45.1 Active 99727629 Problem Dental caries, unspecified K02.9 Active 96192559 Problem Mixed hyperlipidemia E78.2 Active 779382171 Problem Anemia D64.9 Active 185403175 Problem Essential hypertension I10 Active 54467183 Problem 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 Active [id number] ALLERGIES Substance Reaction Event Type Date Status Topamax nausea Drug Allergy Aug, Active ENCOUNTERS Encounter Location Date Diagnosis [facility] [address] [facility] [id number] [address] Jan, Sebaceous cyst L72.3 [facility] [id number] [place] [address] 79464- 2549 Jan, [facility] [id number] [place] [address] 03828- 3787 Jan, [facility] [id number] [place] [address] 76024- 1190 Jan, Type 2 diabetes mellitus with other [...] anemia due to chronic blood loss D50.0 [facility] [id number] [place] [address] 16943- 1008 Nov, Dental caries K02.9 [facility] [id number] [place] [address] [id number] Nov, Dental caries K02.9 [facility] [id number] [place] [address] 28169- 4969 Oct, HTN (hypertension) I10 [facility] [id number] [place] [address] 57971- 5019 Sep, Type 2 diabetes mellitus with other specified complication E11.69 [facility] [id number] [place] [address] 09326- 3641 Sep, [facility] [address] [address]- 2441 Aug, HTN (hypertension) I10 ; Type 2 diabetes mellitus with other specified complication E11.69 ; Benign prostatic hyperplasia without lower urinary tract symptoms N40.0 and Other iron deficiency anemia D50.8 [facility] [id number] [place] [address] [id number] Aug, [facility] [address] [facility] [id number] [id number] Aug, [facility] [address] [id number] Jul, Dental examination Z01.20 [facility] [address] [place] [address] 40539- 5762 Jul, Type 2 diabetes mellitus with other specified complication E11.69 [facility] [id number] [place] [address] 24872- 2899 May, [facility] [id number] [place] [address] 65524- 7252 Apr, Type 2 diabetes mellitus with other specified complication E11.69 ; Proteinuria R80.9 ; HTN (hypertension) I10 ; Erectile dysfunction N52.9 ; Chronic obstructive pulmonary disease, unspecified COPD type J44.9 ; Chronic hepatitis C without hepatic coma B18.2 ; 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 ; Iron deficiency anemia due to chronic blood loss D50.0 and Hypercholesteremia E78.0 [facility] [id number] [place] [address] 73447- 1204 Mar, Diabetes mellitus E11.9 ; Hypercholesteremia E78.0 and Type 2 diabetes mellitus with other specified complication E11.69 [facility] [address] [address] Mar, [facility] [id number] [place] [address] 47212- 6087 Mar, Iron deficiency anemia due to chronic blood loss D50.0 [facility] [id number] [place] [address] 14900- 7886 Mar, Type 2 diabetes mellitus with other specified complication E11.69 and Iron deficiency anemia due to chronic blood loss D50.0 [place] [address] [place] [address] 01820- 7540 Mar, Iron deficiency anemia due to chronic blood loss D50.0 [place] [address] [place] [address] 11583- 2542 February, [facility] [id number] [place] [address] 69754- 0411 February, Iron deficiency anemia due to chronic blood loss D50.0 [facility] [id number] [place] [address] 82814- 0237 February, [facility] [id number] [place] [address] 06747- 6843 February, Anemia D64.[address] 9[address]67- 7033 February, Anemia D64.9 and 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 [place] [address] 92316- 8278 Jan, Chest discomfort R07.89 ; Type 2 diabetes mellitus with other specified complication E11.69 ; HTN (hypertension) I10 ; Mixed hyperlipidemia E78.2 ; Dyspnea on exertion R06.09 and Tobacco use Z72.0 [facility] [id number] [place] [address] 02017- 7196 Dec, [facility] [id number] [place] [address] 95061- 1722 Dec, [place] [id number] [place] [address] 50356- 6953 Dec, Diabetes mellitus E11.9 ; HTN (hypertension) I10 ; Hypercholesteremia E78.0 ; Alcohol abuse F10.10 ; Proteinuria R80.9 ; Essential hypertension I10 ; Chronic hepatitis C with hepatic coma B18.2 ; Benign nodular prostatic hyperplasia with lower urinary tract symptoms N40.1 and Anemia D64.9 [facility] [address] [place] [address] 50854- 0945 Jul, Epididymitis N45.1 and Testicle swelling N50.89 [facility] [id number] [place] [address] 59017- 1428 13 Jul, 2016 Type 2 diabetes mellitus with other specified complication E11.69 ; Hypercholesteremia E78.0 ; Environmental allergies Z91.09 ; Erectile dysfunction N52.9 ; Alcohol abuse F10.10 ; Drug abuse and dependence F19.20 ; Epididymitis N45.1 ; Essential hypertension I10 and Chronic obstructive pulmonary disease, unspecified COPD type J44.9 [facility] [address] 29699- 6201 Jul, [facility] [facility] [address] 41722- 0631 10 Jul, 2016 Epididymitis, left N45.1 [facility] [id number] [place] [address] 48972- 4067 05 Feb, 2016 Diabetes mellitus E11.9 [facility] [address] 25460- 0850 27 Jan, 2016 Dental examination Z01.20 and Dental caries K02.9 [facility] [id number] [place] [address] 01385- 8728 07 Jan, 2016 Type 2 diabetes mellitus with other specified complication E11.69 ; HTN (hypertension) I10 ; Hypercholesteremia E78.0 ; Alcohol abuse F10.10 ; Proteinuria R80.9 and Dental caries, unspecified K02.9 [facility] [id number] [place] [address] 76638- 1227 Dec, [place] [id number] [place] [address] 64488- 3101 Dec, Sebaceous cyst L72.3 ; HTN (hypertension) I10 ; Hypercholesteremia E78.0 ; Proteinuria R80.9 and Anemia D64.9 [facility] [id number] [place] [address] 72887- 1611 Dec, Anemia D64.9 [facility] [address] 59545- 7092 Dec, Physical exam, pre-employment Z02.1 ; Drug abuse and dependence F19.20 ; UTI (urinary tract infection) N39.0 ; Proteinuria R80.9 ; Cellulitis L03.90 and Type 2 diabetes mellitus with other specified complication E11.69 [facility] [id number] [place] [address] 56880- 5215 29 Nov, 2015 Type 2 diabetes mellitus with other specified complication E11.69 ; Hepatitis C 070.70 ; Proteinuria R80.9 ; Diabetes mellitus E11.9 ; HTN (hypertension) I10 ; Hypercholesteremia E78.0 ; Environmental allergies Z91.09 ; Erectile dysfunction N52.9 and Alcohol abuse F10.10 [place] [address] 66289- 9196 Oct, [facility] [address] [id number] Sep, Encounter for dental examination Z01.20 ; Dental examination Z01.20 and Dental caries K02.9 [place] [address] 26184- 0678 Aug, Tooth infection K04.7 [facility] [address] 77865- 8879 Aug, [facility] [address] 43033- 4121 Jul, [place] [facility] [address] 66724- 0330 Jun, Shoulder pain 719.41 [place] [address] 12292- 8320 Jun, Hepatitis C 070.70 [place] [address] 08953- 5152 Jun, Essential hypertension, benign 401.1 ; Psychosexual dysfunction with inhibited sexual excitement 302.72 ; Proteinuria 791.0 ; Unspecified viral hepatitis C without hepatic coma 070.70 ; Diabetes mellitus without mention of complication, type II or unspecified type, uncontrolled 250.02 ; Joint pain 719.40 ; Hepatitis C 070.70 and Hypercholesterolemia 272.0 [facility] [address] [address]- 6486 04 Jun, 2015 [facility] [address] [address] 4657 Apr, [facility] [id number] [place] [address] 57702- 6014 Apr, [facility] [address] [address]- 9058 Mar, [facility] [id number] [place] [address] 51086- 5992 Jan, [facility] [id number] [place] [address] 49501- 9046 Jan, [facility] [id number] [place] [address] 36652- 8771 Dec, [facility] [address] [address]- 2239 Dec, [facility] [address] [address]- 5207 Dec, [facility] [address] [address]- 7379 Dec, [facility] [address] [address]- 8023 Jun, [facility] [address] [address]- 8974 Jun, [facility] [address] [address]- 0710 Jun, [facility] [address] [address]- 3785 Jun, [facility] [address] [address]- 5650 February, [facility] [address] [id number] [place] [address]- 4974 February, [facility] [place] [facility] [address] [id number] [place] [address]- 0676 February, [facility] [place] [facility] [address] [facility] [id number] [place] [address]- 2106 February, [facility] [place] [facility] [address] [id number] [place] [address]- 1124 February, [facility] [place] [facility] [address] [id number] [place] [address]- 2969 Dec, [facility] [place] [facility] [address] [id number] [place] [address]- 5354 Dec, [facility] [address] [facility] [id number] [place] [address]- 2744 Oct, [facility] [place] [facility] [address] [id number] [place] [address]- 9468 Oct, [facility] [place] [facility] [address] [facility] [id number] [place] [address]- 7510 Sep, [facility] [place] [facility] [address] [facility] [id number] [place] [address]- 5985 Sep, [facility] [place] [facility] [address] [id number] [address]- 3893 Jul, [facility] [place] [facility] [address] [id number], [place] [address]- 2225 Jul, [facility] [place] [facility] [address] [id number] [place] [address]- 9915 Jul, [facility] [place] [facility] [address] [facility] [id number], [place] [address]- 2165 Jul, [facility] [place] [facility] [address] [facility] [id number] [place] [address]- 2158 24 Jun, 2013 [facility] [place] [facility] [address] [id number] [place] [address]- 5341 Jun, [facility] [address] [id number] [place] [address]- 2542 Apr, [facility] [place] [facility] [address] [id number] [place] [address]- 3367 Apr, [facility] [address] [id number] [place] [address]- 7644 Mar, [facility] [place] [facility] [address] [id number] [place] [address]- 7853 February, [facility] [place] [facility] [address] [id number] [place] [address]- 5999 February, [facility] [address] [id number] [place] [address]- 7445 February, [facility] [address] [id number] [place] [address]- 9781 February, [facility] [address] [id number] [place] [address]- 7586 February, [facility] [address] [id number] [place] [address]- 1339 February, [facility] [address] [id number] [place] [address]- 9348 February, [facility] [place] [facility] [address] [id number] [place] [address]- 6982 February, [facility] [place] [facility] [address] [id number] [place] [address]- 9983 Dec, [facility] [place] [facility] [address] [id number] [place] [address]- 6426 Nov, [facility] [place] [facility] [address] [id number] [place] [address]- 2546 Nov, [facility] [place] [facility] [address] [id number] [place] [address]- 9148 Nov, [facility] [id number] [address]- 7746 Oct, [facility] [address] [facility] [id number], [place] [address]- 8526 Sep, [facility] [address] [address]- 8906 Sep, [facility] [address] [facility] [id number], [place] [address]- 4546 Sep, [facility] [address] [facility] [id number], [place] [address]- 6456 Sep, [facility] [id number] [address]- 7746 Sep, [facility] [address], [place] [address]- 5493 Sep, [facility] [address] [address]- 9251 Sep, [facility] [address] [address]- 3726 Sep, [facility] [address], [place] [address]- 6486 Sep, [facility] [id number] [address]- 5641 Sep, [facility] [id number] [address]- 5949 Sep, [facility] [id number], [place] [address]- 6406 Sep, [facility] [id number] [address]- 1035 Aug, IMMUNIZATIONS No Known Immunizations SOCIAL HISTORY Never Assessed REASON FOR VISIT Transition of Care-Mahesh EMERSON PLAN OF CARE Activity Details Follow Up 4 Months Reason:dm2 3mo. checkup VITAL SIGNS Height 70 in 2017-09-09 Weight 248.0 lbs 2017-09-09 Temperature 98.0 degrees Fahrenheit 2017-09-09 Heart Rate 82 bpm 2017-09-09 Respiratory Rate 20 2017-09-09 BMI 35.58 kg/m2 2017-09-09 Blood pressure systolic 118 mmHg 2017-09-09 Blood pressure diastolic 20 mmHg 2017-09-09 MEDICATIONS Medication Instructions Dosage Frequency Start Date End Date Duration Status Diovan 40 mg Orally Once a day 1 tablet 24h 90 days Active Pravastatin Sodium 20 mg Orally Once a day 1 tablet 24h 30 days Active Proventil HFA 108 (90 Base) MCG/ACT Inhalation every 4 hrs 2 puffs as needed 4h Dec, Active Metformin HCl 1000 MG Orally Twice a day 1 tablet 12h 30 days Active Carafate 1 GM Orally 4 times a day 1 tablet 6h Active Viagra 100 MG Orally Once a day 1 tablet as needed 24h Not-Taking Ferrous Sulfate 325 (65 Fe) MG Orally 3 times a day 1 tablet 8h 30 days Active Levemir 100 UNIT/ML Subcutaneous daily 100 units 24h 30 days Not- Taking Insulin Syringe/Needle 28G X 1/2 for use with Levemir 2 times a day 1 Syringe 12h Dec, 30 days Not-Taking Flomax 0.4 MG Orally Once a day 1 capsule 24h 30 Active Actos 45 MG Orally Once a day 1 tablet 24h 30 days Active Claritin 10 mg Orally Once a day 1 tablet 24h Not-Taking Amoxicillin 500 mg Orally every 12 hrs 2 capsules 12h Aug, 7 Sep, 2017 10 days Active RESULTS Name Result Date Reference Range A1C (IN HOUSE) 2017-09-09 A1C IN HOUSE 7.2 4.3 - 5.6 % Previous A1c 6.2 Lot [id number] Exp date 05/2019 HEMOGLOBIN (IN HOUSE) 2017-09-09 HEMOGLOBIN 10.2 11.5 - 16 gm/dL Lot # [id number] Exp date 08/2018 PROCEDURES Procedure Date Ordered Result Body Site HEMOGLOBIN Sep 09, 2017 GLYCATED HEMOGLOBIN TEST Sep 09, 2017 INSTRUCTIONS MEDICATIONS ADMINISTERED No Known Medications MEDICAL [...] Iron Def. Anemia, Chest pain, DM type 2-[facility] 2616
--- OUTSIDE RECORDS SUMMARY | 2018-03-21 21:52 | XMS REPORT ---
Author Author MARILEE Kim Organization 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 Active 1216316229426 Problem Mixed hyperlipidemia E78.2 Active 666848210 Problem Benign prostatic hyperplasia without lower urinary tract symptoms N40.0 Active 299728812 Problem Anemia D64.9 Active 549457840 Problem Other iron deficiency anemia D50.8 Active 42337565 Problem Pure hypercholesterolemia, unspecified E78.00 Active 582872090 Problem Iron deficiency anemia due to chronic blood loss D50.0 Active 72699010 Problem Chronic hepatitis C without hepatic coma B18.2 Active 676208168 Problem Hypercholesteremia E78.0 Active 612852749 Problem Alcohol abuse F10.10 Active 18403749 Problem Environmental allergies Z91.09 Active 686078974 Problem Erectile dysfunction N52.9 Active 449620317 Problem Type 2 diabetes mellitus with other specified complication E11.69 Active 999753158593050 Problem Drug abuse and dependence F19.20 Active 3418280 Problem Dental caries, unspecified K02.9 Active 27871127 Problem Proteinuria R80.9 Active 92354281 Problem Chronic obstructive pulmonary disease, unspecified COPD type J44.9 Active 93457430 Problem HTN (hypertension) I10 Active 74017052 Problem Epididymitis N45.1 Active 08697807 ALLERGIES No Information ENCOUNTERS Encounter Location Date Diagnosis [facility] [address] [facility] [id number] [address] Mar, [facility] [id number] [address] Jan, [facility] [address], [place] [address] Nov, Dental caries K02.9 [facility] [id number] [place] [address] [id number] Nov, Dental caries K02.9 [facility] [id number] [place] [address] [phone]- 7625 Oct, HTN (hypertension) I10 [facility] [id number] [place] [address] 33341- 7337 Sep, Type 2 diabetes mellitus with other specified complication E11.69 [facility] [id number] [place] [address] 42760- 9451 Sep, [facility] [id number] [place] [address] 86182- 4481 Aug, HTN (hypertension) I10 ; Type 2 diabetes mellitus with other specified complication E11.69 ; Benign prostatic hyperplasia without lower urinary tract symptoms N40.0 and Other iron deficiency anemia D50.8 [facility] [id number] [place] [address] [id number] Aug, [facility] [id number] [place] [address] [phone] Aug, [facility] [id number] [place] [address] [phone] Jul, Dental examination Z01.20 [facility] [id number] [place] [address] 64833- 2978 Jul, Type 2 diabetes mellitus with other specified complication E11.69 [facility] [id number] [place] [address] 78138- 2922 May, 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 [address], [place] [address] Mar, Diabetes mellitus E11.9 ; Hypercholesteremia E78.0 and Type 2 diabetes mellitus with other specified complication E11.69 [facility] [address], [place] [address] Mar, [place] [id number] [place] [address] 01758- 5914 Mar, Iron deficiency anemia due to chronic blood loss D50.0 [facility] [address], [place] [address] 6428 Mar, Type 2 diabetes mellitus with other specified complication E11.69 and Iron deficiency anemia due to chronic blood loss D50.0 [facility] [address], [place] [address] 7185 Mar, Iron deficiency anemia due to chronic blood loss D50.0 [facility] [address], [place] [address] February, [facility] [address], [place] [address] 16[address] February, Iron deficiency anemia due to chronic blood loss D50.0 [facility] [address], [place] [address] February, [facility] [address], [place] [address] 9899 February, Anemia D64.9 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 [place] [id number] [place] [address] 93304- 7947 12 Jan, 2017 Chest discomfort R07.89 ; Type 2 diabetes mellitus with other specified complication E11.69 ; HTN (hypertension) I10 ; Mixed hyperlipidemia E78.2 ; Dyspnea on exertion R06.09 and Tobacco use Z72.0 [place] [id number] [place] [address] 36348- 9790 16 Dec, 2016 [place] [id number] [place] [address] 92859- 3360 Dec, [place] [id number] [place] [address] 48588- 1099 Dec, Diabetes mellitus E11.9 ; HTN (hypertension) I10 ; Hypercholesteremia E78.0 ; Alcohol abuse F10.10 ; Proteinuria R80.9 ; Essential hypertension I10 ; Chronic hepatitis C with hepatic coma B18.2 ; Benign nodular prostatic hyperplasia with lower urinary tract symptoms N40.1 and Anemia D64.9 [place] [id number] [place] [address] 56253- 6372 Jul, Epididymitis N45.1 and Testicle swelling N50.89 [place] [id number] [place] [address] 38234- 4558 Jul, Type 2 diabetes mellitus with other specified complication E11.69 ; Hypercholesteremia E78.0 ; Environmental allergies Z91.09 ; Erectile dysfunction N52.9 ; Alcohol abuse F10.10 ; Drug abuse and dependence F19.20 ; Epididymitis N45.1 ; Essential hypertension I10 and Chronic obstructive pulmonary disease, unspecified COPD type J44.9 [place] [id number] [place] [address] 76210- 2871 Jul, [place] [id number] [place] [address] 81531- 2940 Jul, Epididymitis, left N45.1 [place] [id number] [place] [address] 64064- 1756 February, Diabetes mellitus E11.9 [place] [id number] [place] [address] 78812- 4457 27 Jan, 2016 Dental examination Z01.20 and Dental caries K02.9 [place] [id number] [place] [address] 93138- 2297 07 Jan, 2016 Type 2 diabetes mellitus with other specified complication E11.69 ; HTN (hypertension) I10 ; Hypercholesteremia E78.0 ; Alcohol abuse F10.10 ; Proteinuria R80.9 and Dental caries, unspecified K02.9 [place] [id number] [place] [address] 40448- 6426 Dec, [place] [address] [address]- 7969 Dec, Sebaceous cyst L72.3 ; HTN (hypertension) I10 ; Hypercholesteremia E78.0 ; Proteinuria R80.9 and Anemia D64.9 [place] [id number] [place] [address] 06433- 4798 Dec, Anemia D64.9 [place] [id number] [place] [address] 66597- 1100 Dec, Physical exam, pre-employment Z02.1 ; Drug abuse and dependence F19.20 ; UTI (urinary tract infection) N39.0 ; Proteinuria R80.9 ; Cellulitis L03.90 and Type 2 diabetes mellitus with other specified complication E11.69 [place] [address] [place] [address] 95143- 6671 Nov, Type 2 diabetes mellitus with other specified complication E11.69 ; Hepatitis C 070.70 ; Proteinuria R80.9 ; Diabetes mellitus E11.9 ; HTN (hypertension) I10 ; Hypercholesteremia E78.0 ; Environmental allergies Z91.09 ; Erectile dysfunction N52.9 and Alcohol abuse F10.10 [place] [id number] [place] [address] 68468- 4098 Oct, [facility] [address] [id number] 08 Sep, 2015 Encounter for dental examination Z01.20 ; Dental examination Z01.20 and Dental caries K02.9 [facility] [address] [address] Aug, Tooth infection K04.7 [facility] [address], [place] [address]- 8230 Aug, [facility] [id number] [place] [address] 95977- 1869 Jul, [facility] [id number] [place] [address] 14879- 6996 Jun, Shoulder pain 719.41 [facility] [id number] [place] [address] 92755- 5950 Jun, Hepatitis C 070.70 [facility] [id number] [place] [address] 45553- 6857 Jun, Essential hypertension, benign 401.1 ; Psychosexual dysfunction with inhibited sexual excitement 302.72 ; Proteinuria 791.0 ; Unspecified viral hepatitis C without hepatic coma 070.70 ; Diabetes mellitus without mention of complication, type II or unspecified type, uncontrolled 250.02 ; Joint pain 719.40 ; Hepatitis C 070.70 and Hypercholesterolemia 272.0 [facility] [id number] [address]- 2250 Jun, [facility] [id number] [place] [address] 14659- 5764 Apr, [facility] [address] [place] [address] 82546- 9399 Apr, [facility] [id number] [place] [address] 849760- 9728 Mar, [facility] [address] [address]663 Jan, [facility] [id number] [address]- 2189 Jan, [facility] [address] [id number] [place] [address]- 3358 Dec, [facility] [address] [id number] [place] [address]- 3072 Dec, 2014 [facility] [address] [id number] [place] [address]- 3082 Dec, [facility] [address] [id number] [place] [address]- 2936 Dec, [facility] [address] [id number] [place] [address]- 0638 Jun, [facility] [address] [id number] [place] [address]- 9245 Jun, [facility] [address] [id number] [place] [address]- 8595 Jun, [facility] [address] [id number] [place] [address]- 0810 Jun, [facility] [address] [id number] [place] [address]- 8378 February, [facility] [address] [id number] [place] [address]- 0351 February, [facility] [address] [id number] [place] [address]- 6031 February, [facility] [address] [id number] [place] [address]- 2793 February, [facility] [place] [facility] [address] [id number] [place] [address]- 7963 February, [facility] [place] [facility] [address] [id number] [place] [address]- 9595 Dec, [facility] [place] [facility] [address] [id number] [place] [address]- 7536 Dec, [facility] [place] [facility] [address] [id number] [place] [address]- 1164 Oct, [facility] [place] [facility] [address] [id number] [place] [address]- 5456 Oct, [facility] [place] [facility] [address] [id number] [place] [address]- 2903 Sep, [facility] [place] [facility] [address] [id number] [place] [address]- 2992 Sep, [facility] [address] [id number] [place] [address]- 4214 Jul, [facility] [place] [facility] [address] [id number] [place] [address]- 7814 Jul, [facility] [address] [id number] [place] [address]- 3181 Jul, [facility] [address] [id number] [place] [address]- 5054 Jul, [facility] [place] [facility] [address] [id number] [place] [address]- 3197 Jun, [facility] [place] [facility] [address] [id number] [place] [address]- 1021 Jun, [facility] [place] [facility] [address] [id number] [place] [address]- 6288 Apr, [facility] [place] [facility] [address] [id number] [address]- 8578 Apr, [facility] [place] [facility] [address] [id number] [place] [address]- 7661 Mar, [facility] [place] [facility] [address] [id number] [place] [address]- 5457 February, [facility] [place] [facility] [address] [id number] [place] [address]- 9342 February, [facility] [place] [facility] [address] [id number], [place] [address]- 9096 February, [facility] [address] [id number] [place] [address]- 0948 February, [facility] [address] [id number] [place] [address]- 9226 February, [facility] [address] [id number] [place] [address]- 9186 February, [facility] [address] [id number] [place] [address]- 5886 February, [facility] [address] [id number] [place] [address]- 2690 February, [facility] [address] [id number] [place] [address]- 1396 Dec, [facility] [address] [facility] [id number] [place] [address]- 0328 Nov, [facility] [address] [id number] [place] [address]- 8649 Nov, [facility] [address] [id number] [place] [address]- 7594 Nov, [facility] [address] [facility] [id number] [place] [address]- 5346 Oct, [facility] [address] [id number] [place] [address]- 5169 Sep, [facility] [address] [id number] [place] [address]- 7682 Sep, [facility] [address] [id number] [place] [address]- 2806 Sep, [facility] [address] [id number] [place] [address]- 8586 Sep, [facility] [address] [facility] [id number] [place] [address]- 9132 Sep, [facility] [id number], [place] [address]- 2980 Sep, [facility] [id number] [address]- 1952 Sep, [facility] [address], [place] [address]- 7410 Sep, [facility] [address], [place] [address]- 0522 Sep, [facility] [id number], [place] [address]- 8906 Sep, [facility] [address], [place] [address]- 7633 Sep, [facility] [address], [place] [address]- 4210 Sep, [facility] [id number] [address]- 9838 Aug, IMMUNIZATIONS No Known Immunizations SOCIAL HISTORY Never Assessed REASON FOR VISIT Repository Refill Request PLAN OF CARE VITAL SIGNS MEDICATIONS Medication Instructions Dosage Frequency Start Date End Date Duration Status Flomax 0.4 MG Orally Once a day 1 capsule 24h Apr, 30 days Active RESULTS No Results PROCEDURES [...] Iron Def. Anemia, Chest pain, DM type 2-[facility] 2616
--- OUTSIDE RECORDS SUMMARY | 2018-03-21 21:52 | XMS REPORT ---
Author Author MARILEE Kim Organization 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 Role Phone MARILEE Kim Unavailable PROBLEMS Type Condition ICD9-CM Code XRV40-QS Code Onset Dates Condition Status SNOMED Code Problem Iron deficiency anemia due to chronic blood loss D50.0 Active 15298443 Problem Pure hypercholesterolemia, unspecified E78.00 Active 943327045 Problem Hypercholesteremia E78.0 Active 997617616 Problem Other male erectile dysfunction N52.8 Active 546280016 Problem Proteinuria R80.9 Active 94300651 Problem Chronic fatigue R53.82 Active 96247044 Problem Environmental allergies Z91.09 Active 157733649 Problem Alcohol abuse F10.10 Active 38943334 Problem Benign prostatic hyperplasia without lower urinary tract symptoms N40.0 Active 876377265 Problem Chronic hepatitis C without hepatic coma B18.2 Active 271092163 Problem Sexual dysfunction R37 Active 06636470 Problem Other iron deficiency anemia D50.8 Active 18550555 Problem Erectile dysfunction N52.9 Active 282637704 Problem Drug abuse and dependence F19.20 Active 3810871 Problem HTN (hypertension) I10 Active 84962896 Problem Type 2 diabetes mellitus with other specified complication E11.69 Active 125519684436168 Problem Chronic obstructive pulmonary disease, unspecified COPD type J44.9 Active 10176441 Problem Epididymitis N45.1 Active 63731333 Problem Dental caries, unspecified K02.9 Active 00380890 Problem Mixed hyperlipidemia E78.2 Active 580713403 Problem Anemia D64.9 Active 313450905 Problem Essential hypertension I10 Active 58360746 Problem 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 [address] [facility] [id number] [address] Jan, Sebaceous cyst L72.3 [facility] [id number] [place] [address] 94668- 8447 Jan, [facility] [id number] [place] [address] 74606- 8706 Jan, [facility] [id number] [place] [address] 73392- 1487 Jan, Type 2 diabetes mellitus with other [...] anemia due to chronic blood loss D50.0 [facility] [id number] [place] [address] 85999- 0834 Nov, Dental caries K02.9 [facility] [id number] [place] [address] [id number] Nov, Dental caries K02.9 [facility] [id number] [place] [address] 88267- 6720 Oct, HTN (hypertension) I10 [facility] [id number] [place] [address] 41418- 4608 Sep, Type 2 diabetes mellitus with other specified complication E11.69 [facility] [id number] [place] [address] 96728- 6979 Sep, [facility] [address] [address]- [address]17 Aug, HTN (hypertension) I10 ; Type 2 diabetes mellitus with other specified complication E11.69 ; Benign prostatic hyperplasia without lower urinary tract symptoms N40.0 and Other iron deficiency anemia D50.8 [facility] [id number] [place] [id number] Aug, [facility] [address] [facility] [id number] [id number] Aug, [facility] [address] [id number] [id number] Jul, Dental examination Z01.20 [facility] [id number] [place] [address] 42393- 8794 Jul, Type 2 diabetes mellitus with other specified complication E11.69 [facility] [id number] [place] [address] 83642- 9577 May, [facility] [id number] [place] [address] 67741- 8279 Apr, Type 2 diabetes mellitus with other specified complication E11.69 ; Proteinuria R80.9 ; HTN (hypertension) I10 ; Erectile dysfunction N52.9 ; Chronic obstructive pulmonary disease, unspecified COPD type J44.9 ; Chronic hepatitis C without hepatic coma B18.2 ; 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 ; Iron deficiency anemia due to chronic blood loss D50.0 and Hypercholesteremia E78.0 [facility] [id number] [place] [address] 65445- 3465 Mar, Diabetes mellitus E11.9 ; Hypercholesteremia E78.0 and Type 2 diabetes mellitus with other specified complication E11.69 [facility] [address], [place] [address] Mar, [facility] [id number] [place] [address] 31651- 1529 Mar, Iron deficiency anemia due to chronic blood loss D50.0 [facility] [id number] [place] [address] 46776- 3961 Mar, Type 2 diabetes mellitus with other specified complication E11.69 and Iron deficiency anemia due to chronic blood loss D50.0 [facility] [id number] [place] [address] 53073- 9898 Mar, Iron deficiency anemia due to chronic blood loss D50.0 [facility] [id number] [place] [address] 09774- 8811 February, [facility] [id number] [place] [address] 24669- 4766 February, Iron deficiency anemia due to chronic blood loss D50.0 [facility] [id number] [place] [address] 47106- 6589 February, [facility] [address] 59208- 1327 February, Anemia D64.[address] 39480- 9198 February, Anemia D64.9 and 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 75939- 7207 Jan, Chest discomfort R07.89 ; Type 2 diabetes mellitus with other specified complication E11.69 ; HTN (hypertension) I10 ; Mixed hyperlipidemia E78.2 ; Dyspnea on exertion R06.09 and Tobacco use Z72.0 [facility] [id number] [place] [address] 83560- 8661 Dec, [facility] [id number] [place] [address] 30274- 7039 Dec, [facility] [id number] [place] [address] 47442- 9991 Dec, Diabetes mellitus E11.9 ; HTN (hypertension) I10 ; Hypercholesteremia E78.0 ; Alcohol abuse F10.10 ; Proteinuria R80.9 ; Essential hypertension I10 ; Chronic hepatitis C with hepatic coma B18.2 ; Benign nodular prostatic hyperplasia with lower urinary tract symptoms N40.1 and Anemia D64.9 [facility] [id number] [place] [address] 66422- 3030 Jul, Epididymitis N45.1 and Testicle swelling N50.89 [facility] [id number] [place] [address] 16706- 2285 13 Jul, 2016 Type 2 diabetes mellitus with other specified complication E11.69 ; Hypercholesteremia E78.0 ; Environmental allergies Z91.09 ; Erectile dysfunction N52.9 ; Alcohol abuse F10.10 ; Drug abuse and dependence F19.20 ; Epididymitis N45.1 ; Essential hypertension I10 and Chronic obstructive pulmonary disease, unspecified COPD type J44.9 [facility] [address] 65348- 6783 10 Jul, 2016 [facility] [address] 54046- 4159 10 Jul, 2016 Epididymitis, left N45.1 [facility] [id number] [place] [address] 11118- 2487 February, Diabetes mellitus E11.9 [facility] [address] 00937- 1362 27 Jan, 2016 Dental examination Z01.20 and Dental caries K02.9 [facility] [id number] [place] [address] 76173- 7504 07 Jan, 2016 Type 2 diabetes mellitus with other specified complication E11.69 ; HTN (hypertension) I10 ; Hypercholesteremia E78.0 ; Alcohol abuse F10.10 ; Proteinuria R80.9 and Dental caries, unspecified K02.9 [facility] [id number] [place] [address] 81324- 1536 Dec, [facility] [id number] [place] [address] 73211- 0261 Dec, Sebaceous cyst L72.3 ; HTN (hypertension) I10 ; Hypercholesteremia E78.0 ; Proteinuria R80.9 and Anemia D64.9 [facility] [id number] [place] [address] 90831- 4353 Dec, Anemia D64.9 [facility] [address] 66405- 4419 Dec, Physical exam, pre-employment Z02.1 ; Drug abuse and dependence F19.20 ; UTI (urinary tract infection) N39.0 ; Proteinuria R80.9 ; Cellulitis L03.90 and Type 2 diabetes mellitus with other specified complication E11.69 [facility] [id number] [place] [address] 04768- 8243 29 Nov, 2015 Type 2 diabetes mellitus with other specified complication E11.69 ; Hepatitis C 070.70 ; Proteinuria R80.9 ; Diabetes mellitus E11.9 ; HTN (hypertension) I10 ; Hypercholesteremia E78.0 ; Environmental allergies Z91.09 ; Erectile dysfunction N52.9 and Alcohol abuse F10.10 [place] [address] 81776- 4228 Oct, [facility] [address] [id number] Sep, 2015 Encounter for dental examination Z01.20 ; Dental examination Z01.20 and Dental caries K02.9 [facility] [id number] [place] [address] 64411- 0071 Aug, Tooth infection K04.7 [facility] [address] 77199- 1113 Aug, [facility] [address] 25953- 4231 Jul, [facility] [address] 65833- 0460 Jun, Shoulder pain 719.41 [facility] [address] 18418- 1914 Jun, Hepatitis C 070.70 [facility] [address] 60497- 7552 Jun, Essential hypertension, benign 401.1 ; Psychosexual dysfunction with inhibited sexual excitement 302.72 ; Proteinuria 791.0 ; Unspecified viral hepatitis C without hepatic coma 070.70 ; Diabetes mellitus without mention of complication, type II or unspecified type, uncontrolled 250.02 ; Joint pain 719.40 ; Hepatitis C 070.[address] [facility] [address] [id number] 04 Jun, 2015 [facility] [address] [id number] [address] Apr, [facility] [id number] [place] [address] 80748- 8394 Apr, [facility] [id number] [place] [address] 580134- 8738 Mar, [facility] [id number] [place] [address] 90775- 6008 Jan, [facility] [id number] [place] [address] 34860- 1841 Jan, [facility] [address] [place] [address] 91962- 7249 Dec, [facility] [address], [place] [address]- 80[address] Dec, [facility] [address], [place] [address]- 6442 Dec, [facility] [address], [place] [address]- 5740 Dec, [facility] [address], [place] [address]- 2750 Jun, [facility] [address], [place] [address] 6433 Jun, [facility] [id number] [address]- 1443 Jun, [facility] [address] [address] Jun, [facility] [address] [id number] [address]- 3041 February, [facility] [place] [facility] [address] [id number] [place] [address]- 8281 February, [facility] [place] [facility] [address] [id number] [place] [address]- 5798 February, [facility] [place] [facility] [address] [id number] [place] [address]- 8987 February, [facility] [place] [facility] [address] [id number] [place] [address]- 0458 February, [facility] [place] [facility] [address] [id number] [place] [address]- 7050 Dec, [facility] [place] [facility] [address] [id number] [place] [address]- 3508 Dec, [facility] [place] [facility] [address] [id number] [place] [address]- 9215 Oct, [facility] [place] [facility] [address] [id number] [place] [address]- 5865 Oct, [facility] [place] [facility] [address] [id number] [place] [address]- 1644 Sep, [facility] [place] [facility] [address] [id number] [place] [address]- 3530 Sep, [facility] [place] [facility] [address] [id number], [place] [address]- 6387 Jul, [facility] [place] [facility] [address] [id number] [place] [address]- 6387 Jul, [facility] [place] [facility] [address] [id number] [place] [address]- 9434 Jul, [facility] [place] [facility] [address] [id number] [place] [address]- 9145 Jul, [facility] [place] [facility] [address] [id number] [place] [address]- 7323 24 Jun, 2013 [facility] [place] [facility] [address] [id number] [place] [address]- 2546 Jun, [facility] [address] [id number] [place] [address]- 1735 Apr, [facility] [address] [id number] [place] [address]- 2546 Apr, [facility] [address] [id number] [place] [address]- 3018 Mar, [facility] [address] [id number] [place] [address]- 0303 February, [facility] [address] [id number] [place] [address]- 9716 February, [facility] [address] [id number] [place] [address]- 0826 February, [facility] [address] [id number] [place] [address]- 9876 February, [facility] [address] [id number] [place] [address]- 1003 February, [facility] [address] [id number] [place] [address]- 4716 February, [facility] [address] [id number] [place] [address]- 2546 February, [facility] [address] [id number] [place] [address]- 2546 February, [facility] [address] [id number] [place] [address]- 2546 Dec, [facility] [place] [facility] [address] [id number] [place] [address]- 2546 Nov, [facility] [place] [facility] [address] [id number] [place] [address]- 2546 Nov, [facility] [place] [facility] [address] [id number] [place] [address]- 5006 Nov, [facility] [address] [id number] [address] 6948 Oct, [facility] [address] [address] Sep, [facility] [address], [place] [address]- 2579 Sep, [facility] [address], [place] [address]- 9045 Sep, [facility] [address], [place] [address]- 2002 Sep, [facility] [address] [place] [address] 58008- 2299 Sep, [facility] [address], [place] [address]- 7925 Sep, [facility] [address], [place] [address] Sep, [facility] [address], [place] [address]- 4026 Sep, [facility] [address] [address] Sep, [facility] [address] 2356 Sep, [facility] [address], [place] [address]- 9689 Sep, [facility] [address], [place] [address]- 6117 Sep, [facility] [address], [place] [address]- 7957 Aug, IMMUNIZATIONS No Known Immunizations SOCIAL HISTORY Never Assessed REASON FOR VISIT eye exam PLAN OF CARE VITAL SIGNS MEDICATIONS Unknown [...] Iron Def. Anemia, Chest pain, DM type 2-[facility] 2616
--- OUTSIDE RECORDS SUMMARY | 2018-03-21 21:52 | XMS REPORT ---
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 Role Phone MARILEE FULLER Unavailable PROBLEMS Type Condition ICD9-CM Code [id number] Code Onset Dates Condition Status SNOMED Code Problem Chronic obstructive pulmonary disease, unspecified COPD type J44.9 Active 77842734 Problem Essential hypertension I10 Active 40612733 Problem Epididymitis N45.1 Active 20217588 Problem Chronic hepatitis C without hepatic coma B18.2 Active 772318085 Problem Hypercholesteremia E78.0 Active 804876016 Problem Coronary artery disease involving unga coronary artery of unga heart with angina pectoris I25.119 Active 5085405017388 Problem Mixed hyperlipidemia E78.2 Active 989471948 Problem Pure hypercholesterolemia, unspecified E78.00 Active 027776227 Problem Iron deficiency anemia due to chronic blood loss D50.0 Active 59928995 Problem Erectile dysfunction N52.9 Active 805767040 Problem Type 2 diabetes mellitus with other specified complication E11.69 Active 466168616960536 Problem Anemia D64.9 Active 185136616 Problem Proteinuria R80.9 Active 76760277 Problem HTN (hypertension) I10 Active 83696686 Problem Alcohol abuse F10.10 Active 83875535 Problem Drug abuse and dependence F19.20 Active 4286224 Problem Environmental allergies Z91.09 Active 919804722 Problem Dental caries, unspecified K02.9 Active 53241141 ALLERGIES Substance Reaction Event Type Date Status Topamax nausea Drug Allergy Dec, Active SOCIAL HISTORY Never Assessed PLAN OF CARE Activity Details Follow Up 3 Months, prn Reason: Pending Test CBC VITAL SIGNS Height 70 in 2016-12-18 Weight 234 lbs 2016-12-18 Temperature 98.0 degrees Fahrenheit 2016-12-18 Heart Rate 100 bpm 2016-12-18 Respiratory Rate 22 2016-12-18 Oximetry on room air:98 % 2016-12-18 BMI 33.57 kg/m2 2016-12-18 Blood pressure systolic 140 mmHg 2016-12-18 Blood pressure diastolic 88 mmHg 2016-12-18 MEDICATIONS Medication Instructions Dosage Frequency Start Date End Date Duration Status Insulin Syringe/Needle 28G X 1/2 for use with Levemir 2 times a day 1 Syringe 12h 21 Dec, 2015 Active Iron Active Albuterol Sulfate 90 mcg/actuation 2 puffs by Inhalation route every 4-6 hours as needed PRN cough or wheezing 6h 24 Jun, 2013 Active Diovan 40 mg Orally Once a day 1 tablet 24h 90 days Active Metformin HCl 1000 MG Orally Twice a day 1 tablet 12h 30 days Active Actos 45 MG Orally Once a day 1 tablet 24h 90 days Active Claritin 10 mg Orally Once a day 1 tablet 24h Active Pravastatin Sodium 20 mg Orally Once a day 1 tablet 24h 90 days Active RESULTS Name Result Date Reference Range A1C (IN HOUSE) 2016-12-18 A1C IN HOUSE 10.0 4.3 - 5.6 % Previous A1c 7.1 Lot 0672 Exp date 08/2018 ANEMIA PANEL 2016-12-18 Iron Bind.Cap.(TIBC) 541 250-450 UIBC 455 111-343 Iron, Serum 86 38-169 Iron Saturation 16 15-55 Ferritin, Serum 12 30-400 Vitamin B12 597 211-946 Folate (Folic Acid), Serum 10.7 >3.0 WBC 5.9 3.4-10.8 RBC 4.96 4.14-5.80 Hemoglobin 12.8 12.6-17.7 Hematocrit 40.4 37.5-51.0 MCV 82 79-97 MCH 25.8 26.6-33.0 MCHC 31.7 31.5-35.7 RDW 15.7 12.3-15.4 Platelets 237 150-379 Neutrophils 66 Lymphs 21 Monocytes 7 Eos 5 Basos 1 Neutrophils (Absolute) 3.9 1.4-7.0 Lymphs (Absolute) 1.3 0.7-3.1 Monocytes(Absolute) 0.4 0.1-0.9 Eos (Absolute) 0.3 0.0-0.4 Baso (Absolute) 0.0 0.0-0.2 Immature Granulocytes 0 Immature Grans (Abs) 0.0 0.0-0.1 Reticulocyte Count 2.1 0.6-2.6 LIPID PANEL 2016-12-18 Cholesterol, Total 232 100-199 Triglycerides 214 0-149 HDL Cholesterol 43 >39 VLDL Cholesterol Heriberto 43 5-40 LDL Cholesterol Calc 146 0-99 CMP 2016-12-18 Glucose, Serum 318 65-99 BUN 21 6-24 Creatinine, Serum 1.01 0.76-1.27 eGFR If NonAfricn Am 83 >59 eGFR If Africn Am 96 >59 BUN/Creatinine Ratio 21 9-20 Sodium, Serum 135 134-144 Potassium, Serum 5.2 3.5-5.2 Chloride, Serum 95 96-106 Carbon Dioxide, Total 25 18-29 Calcium, Serum 10.2 8.7-10.2 Protein, Total, Serum 8.5 6.0-8.5 Albumin, Serum 4.5 3.5-5.5 Globulin, Total 4.0 1.5-4.5 A/G Ratio 1.1 1.1-2.5 Bilirubin, Total 0.4 0.0-1.2 Alkaline Phosphatase, S 88 39-117 AST (SGOT) 41 0-40 ALT (SGPT) 62 0-44 PROCEDURES Procedure Date Ordered Result Body Site AUTOMATED RETICULOCYTE COUNT December 18, 2016 ASSAY OF FERRITIN December 18, 2016 VENIPUNCT, ROUTINE* December 18, 2016 MEASURE BLOOD OXYGEN LEVEL December 18, 2016 GLYCATED HEMOGLOBIN TEST December 18, 2016 BLOOD FOLIC ACID SERUM December 18, 2016 ASSAY OF IRON December 18, 2016 VITAMIN B-12 December 18, 2016 COMPREHEN METABOLIC PANEL December 18, 2016 COMPLETE CBC W/AUTO DIFF WBC December 18, 2016 IRON BINDING TEST December 18, 2016 LIPID PANEL December 18, 2016 IMMUNIZATIONS No Known Immunizations MEDICAL (GENERAL) HISTORY [...] Iron Def. Anemia, Chest pain, DM type 2-[facility] 2616
--- OUTSIDE RECORDS SUMMARY | 2018-03-21 21:52 | XMS REPORT ---
Author Author CHITO SANTOS Organization [facility] Address [address] [place] [address] Care Team Providers Care Mortgage Loan Coordinator Name Role Phone CHITO SANTOS Unavailable PROBLEMS Type Condition ICD9-CM Code [id number] Code Onset Dates Condition Status SNOMED Code Problem Chronic obstructive pulmonary disease, unspecified COPD type J44.9 Active 56807861 Problem Essential hypertension I10 Active 20421444 Problem Epididymitis N45.1 Active 24509141 Problem Chronic hepatitis C without hepatic coma B18.2 Active 129589475 Problem Hypercholesteremia E78.0 Active 905298719 Problem 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 prairie band heart with angina pectoris I25.119 Active 2692330549621 Problem Mixed hyperlipidemia E78.2 Active 081512557 Problem Pure hypercholesterolemia, unspecified E78.00 Active 359635591 Problem Iron deficiency anemia due to chronic blood loss D50.0 Active 23556065 Problem Erectile dysfunction N52.9 Active 855449738 Problem Type 2 diabetes mellitus with other specified complication E11.69 Active 839308814663490 Problem Anemia D64.9 Active 834582129 Problem Proteinuria R80.9 Active 92848456 Problem HTN (hypertension) I10 Active 14915630 Problem Alcohol abuse F10.10 Active 57835273 Problem Drug abuse and dependence F19.20 Active 5322040 Problem Environmental allergies Z91.09 Active 740431103 Problem Dental caries, unspecified K02.9 Active 31222801 ALLERGIES No Information SOCIAL HISTORY Never Assessed [...] Iron Def. Anemia, Chest pain, DM type 2-[facility] 2616
--- OUTSIDE RECORDS SUMMARY | 2018-03-21 21:53 | XMS REPORT ---
Author Author MARILEE Kim Organization [facility] Address [address] [place] [address] Care Team Providers Care Motor Vehicle Clerk Name Role Phone MARILEE Kim Unavailable PROBLEMS Type Condition ICD9-CM Code KCM14-BC Code Onset Dates Condition Status SNOMED Code Problem Iron deficiency anemia due to chronic blood loss D50.0 Active 92564118 Problem Pure hypercholesterolemia, unspecified E78.00 Active 470806574 Problem Hypercholesteremia E78.0 Active 987473888 Problem Other male erectile dysfunction N52.8 Active 560707341 Problem Proteinuria R80.9 Active 30803475 Problem Chronic fatigue R53.82 Active 47334627 Problem Environmental allergies Z91.09 Active 214803756 Problem Alcohol abuse F10.10 Active 23851644 Problem Benign prostatic hyperplasia without lower urinary tract symptoms N40.0 Active 276942116 Problem Chronic hepatitis C without hepatic coma B18.2 Active 881839686 Problem Sexual dysfunction R37 Active 16615812 Problem Other iron deficiency anemia D50.8 Active 11502958 Problem Erectile dysfunction N52.9 Active 742216707 Problem Drug abuse and dependence F19.20 Active 8285259 Problem HTN (hypertension) I10 Active 88893568 Problem Type 2 diabetes mellitus with other specified complication E11.69 Active 310134977971973 Problem Chronic obstructive pulmonary disease, unspecified COPD type J44.9 Active 45301681 Problem Epididymitis N45.1 Active 04662328 Problem Dental caries, unspecified K02.9 Active 95722474 Problem Mixed hyperlipidemia E78.2 Active 515648153 Problem Anemia D64.9 Active 124384757 Problem Essential hypertension I10 Active 98681354 Problem 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 Active 8535215383091 ALLERGIES Substance Reaction Event Type Date Status Topamax nausea Drug Allergy Apr, Active ENCOUNTERS Encounter Location Date Diagnosis [facility] [address], [place] [address] Mar, [facility] [id number] [place] [address]18- 4645 Jan, [facility] [id number] [place] [address] 28531- 0622 Jan, [place] [id number] [place] [address] 47436- 9939 Jan, Type 2 diabetes mellitus with other [...] anemia due to chronic blood loss D50.0 [place] [id number] [place] [address] 99418- 2200 Nov, Dental caries K02.9 [facility] [id number] [place] [address] [id number] Nov, Dental caries K02.9 [place] [id number] [place] [address] 31188- 1881 Oct, HTN (hypertension) I10 [place] [id number] [place] [address] 03043- 3221 Sep, Type 2 diabetes mellitus with other specified complication E11.69 [place] [id number] [place] [address] 00149- 1243 Sep, [place] [id number] [place] [address] 05092- 7143 Aug, HTN (hypertension) I10 ; Type 2 diabetes mellitus with other specified complication E11.69 ; Benign prostatic hyperplasia without lower urinary tract symptoms N40.0 and Other iron deficiency anemia D50.8 [facility] [id number] [place] [address] [id number] Aug, [facility] [address] [facility] [id number] [id number] Aug, [facility] [id number] [id number] Jul, Dental examination Z01.20 [place] [id number] [place] [address] 77385- 7044 Jul, Type 2 diabetes mellitus with other specified complication E11.69 [place] [id number] [place] [address] [id number]- 1767 May, [place] [id number] [place] [address] 772600- 1323 Apr, Type 2 diabetes mellitus with other specified complication E11.69 ; Proteinuria R80.9 ; HTN (hypertension) I10 ; Erectile dysfunction N52.9 ; Chronic obstructive pulmonary disease, unspecified COPD type J44.9 ; Chronic hepatitis C without hepatic coma B18.2 ; 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 ; Iron deficiency anemia due to chronic blood loss D50.0 and Hypercholesteremia E78.0 [place] [id number] [place] [address] 63115- 6228 Mar, Diabetes mellitus E11.9 ; Hypercholesteremia E78.0 and Type 2 diabetes mellitus with other specified complication E11.69 [place] [address], [place] [address] Mar, [place] [id number] [place] [address] 28295- 4937 Mar, Iron deficiency anemia due to chronic blood loss D50.0 [place] [id number] [place] [address] 63663- 8998 Mar, Type 2 diabetes mellitus with other specified complication E11.69 and Iron deficiency anemia due to chronic blood loss D50.0 [place] [id number] [place] [address] 82743- 8298 Mar, Iron deficiency anemia due to chronic blood loss D50.0 [place] [address], [place] [address] February, [place] [id number] [place] [id number] February, Iron deficiency anemia due to chronic blood loss D50.0 [place] [id number] [place] [address] 24945- 2018 February, [place] [id number] [place] [address] 05319- 4802 February, Anemia D64.[address] [address]- 5310 February, Anemia D64.9 and 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 [address] [id number] [place] [address] 68095- 1782 Jan, Chest discomfort R07.89 ; Type 2 diabetes mellitus with other specified complication E11.69 ; HTN (hypertension) I10 ; Mixed hyperlipidemia E78.2 ; Dyspnea on exertion R06.09 and Tobacco use Z72.0 [place] [id number] [place] [address] 18895- 3802 Dec, [place] [id number] [place] [address] 73157- 9996 Dec, [place] [id number] [place] [address] 71125- 0724 Dec, Diabetes mellitus E11.9 ; HTN (hypertension) I10 ; Hypercholesteremia E78.0 ; Alcohol abuse F10.10 ; Proteinuria R80.9 ; Essential hypertension I10 ; Chronic hepatitis C with hepatic coma B18.2 ; Benign nodular prostatic hyperplasia with lower urinary tract symptoms N40.1 and Anemia D64.9 [place] [id number] [place] [address] 60512- 8392 Jul, Epididymitis N45.1 and Testicle swelling N50.89 [place] [id number] [place] [address] 62226- 1596 13 Jul, 2016 Type 2 diabetes mellitus with other specified complication E11.69 ; Hypercholesteremia E78.0 ; Environmental allergies Z91.09 ; Erectile dysfunction N52.9 ; Alcohol abuse F10.10 ; Drug abuse and dependence F19.20 ; Epididymitis N45.1 ; Essential hypertension I10 and Chronic obstructive pulmonary disease, unspecified COPD type J44.9 [place] [address] [address]- 8609 10 Jul, 2016 [place] [address] 711405- 7767 10 Jul, 2016 Epididymitis, left N45.1 [place] [address] 10570- 7759 05 Feb, 2016 Diabetes mellitus E11.9 [place] [address] 04718- 5815 27 Jan, 2016 Dental examination Z01.20 and Dental caries K02.9 [place] [address] 99235- 8037 07 Jan, 2016 Type 2 diabetes mellitus with other specified complication E11.69 ; HTN (hypertension) I10 ; Hypercholesteremia E78.0 ; Alcohol abuse F10.10 ; Proteinuria R80.9 and Dental caries, unspecified K02.9 [place] [id number] [place] [address] 23207- 7524 Dec, [place] [address] 48784- 9023 Dec, Sebaceous cyst L72.3 ; HTN (hypertension) I10 ; Hypercholesteremia E78.0 ; Proteinuria R80.9 and Anemia D64.9 [place] [address] 84484- 2655 Dec, Anemia D64.9 [place] [address] [place] [address]- 6420 Dec, Physical exam, pre-employment Z02.1 ; Drug abuse and dependence F19.20 ; UTI (urinary tract infection) N39.0 ; Proteinuria R80.9 ; Cellulitis L03.90 and Type 2 diabetes mellitus with other specified complication E11.69 [place] [address] 38695- 7512 Nov, Type 2 diabetes mellitus with other specified complication E11.69 ; Hepatitis C 070.70 ; Proteinuria R80.9 ; Diabetes mellitus E11.9 ; HTN (hypertension) I10 ; Hypercholesteremia E78.0 ; Environmental allergies Z91.09 ; Erectile dysfunction N52.9 and Alcohol abuse F10.10 [place] [address] 46651- 3322 Oct, [facility] [address] [id number] Sep, Encounter for dental examination Z01.20 ; Dental examination Z01.20 and Dental caries K02.9 [place] [address] 86777- 6841 Aug, Tooth infection K04.7 [place] [address] 33624- 7459 Aug, [place] [address] 00108- 9343 Jul, [place] [address] 28382- 8849 Jun, Shoulder pain 719.41 [place] [address] 79080- 4961 Jun, Hepatitis C 070.70 [place] [address] 79722- 7060 Jun, Essential hypertension, benign 401.1 ; Psychosexual dysfunction with inhibited sexual excitement 302.72 ; Proteinuria 791.0 ; Unspecified viral hepatitis C without hepatic coma 070.70 ; Diabetes mellitus without mention of complication, type II or unspecified type, uncontrolled 250.02 ; Joint pain 719.40 ; Hepatitis C 070.70 and Hypercholesterolemia 272.0 [facility] [address], [place] [address] 48[address] Jun, [facility] [address], [place] [address] 1663 Apr, [facility] [id number] [place] [address] 80951- 3235 Apr, [facility] [address], [place] [address] 1617 Mar, [facility] [id number] [place] [address] 37149- 7239 Jan, [facility] [address], [place] [address]- 2915 Jan, [facility] [address], [place] [address]- 9323 Dec, [facility] [address], [place] [address]- 7365 Dec, [facility] [address], [place] [address]- 8758 Dec, [facility] [id number], [place] [address]- 4360 Dec, [facility] [address], [place] [address]- 9093 Jun, [facility] [address], [place] [address]- 0316 Jun, [facility] [address], [place] [address]- 4438 Jun, [facility] [id number], [place] [address]- 4387 Jun, [facility] [id number] [place] [address]- 5465 February, [facility] [address] [id number] [place] [address]- 6559 February, [facility] [address] [id number] [place] [address]- 9606 February, [facility] [address] [id number] [place] [address]- 0866 February, [facility] [address] [id number] [place] [address] 2546 February, [facility] [address] [id number] [place] [address]- 6077 Dec, [facility] [address] [id number] [place] [address]- 1465 Dec, [facility] [address] [id number] [place] [address]- 6018 Oct, [facility] [address] [id number] [place] [address]- 7277 Oct, [facility] [address] [id number] [place] [address]- 4302 Sep, [facility] [address] [id number] [place] [address]- 5993 Sep, [facility] [place] [facility] [address] [id number] [place] [address]- 0007 Jul, [facility] [address] [id number] [place] [address]- 7763 Jul, [facility] [place] [facility] [address] [id number] [place] [address]- 2504 Jul, [facility] [place] [facility] [address] [id number] [place] [address]- 2546 Jul, [facility] [place] [facility] [address] [id number] [place] [address]- 6609 Jun, [facility] [address] [id number] [place] [address]- 3064 Jun, [facility] [address] [id number] [place] [address]- 9651 Apr, [facility] [address] [id number] [place] [address]- 0124 Apr, [facility] [place] [facility] [address] [id number] [place] [address]- 7440 Mar, [facility] [address] [id number] [place] [address]- 6374 February, [facility] [address] [id number] [place] [address]- 7600 February, [facility] [address] [id number] [place] [address]- 2519 February, [facility] [address] [id number] [place] [address]- 5252 February, [facility] [address] [id number] [place] [address]- 3081 February, [facility] [address] [id number] [place] [address]- 0312 February, [facility] [address] [id number] [place] [address]- 7936 February, [facility] [place] [facility] [address] [id number], [place] [address]- 3772 February, [facility] [place] [facility] [address] [id number] [place] [address]- 4610 Dec, [facility] [place] [facility] [address] [id number] [place] [address]- 1506 Nov, [facility] [place] [facility] [address] [id number] [place] [address]- 2546 Nov, [facility] [place] [facility] [address] [id number], [place] [address]- 8996 Nov, [facility] [address], [place] [address]- 3679 Oct, [facility] [address], [place] [address]- 9446 Sep, [facility] [address], [place] [address]- 9536 Sep, [facility] [address], [place] [address]- 4176 Sep, [facility] [id number] [place] [address] 57399- 2026 Sep, [facility] [address], [place] [address]- 2016 Sep, [facility] [id number] [place] [address] 83786- 7421 Sep, [facility] [address], [place] [address]- 1644 Sep, [facility] [address], [place] [address]- 5793 Sep, [facility] [address] [address] Sep, [facility] [address], [place] [address]- 5252 Sep, [facility] [id number], [place] [address]- 1797 Sep, [facility] [address], [place] [address]- 1664 Sep, [facility] [address], [place] [address]- 5211 Aug, IMMUNIZATIONS No Known Immunizations SOCIAL HISTORY Never Assessed REASON FOR VISIT diabetes. No concerns. JOSE Tejada PLAN OF CARE Activity Details Follow Up 3 Months Reason:dm VITAL SIGNS Height 70 in 2017-05-13 Weight 249 lbs 2017-05-13 Temperature 98.6 degrees Fahrenheit 2017-05-13 Heart Rate 76 bpm 2017-05-13 Respiratory Rate 18 2017-05-13 BMI 35.72 kg/m2 2017-05-13 Blood pressure systolic 120 mmHg 2017-05-13 Blood pressure diastolic 80 mmHg 2017-05-13 MEDICATIONS Medication Instructions Dosage Frequency Start Date End Date Duration Status Metformin HCl 1000 MG Orally Twice a day 1 tablet 12h 30 days Active Viagra 100 MG Orally Once a day 1 tablet as needed 24h Active Actos 45 MG Orally Once a day 1 tablet 24h 30 days Active Proventil HFA 108 (90 Base) MCG/ACT Inhalation every 4 hrs 2 puffs as needed 4h Dec, Active Diovan 40 mg Orally Once a day 1 tablet 24h 90 days Active Insulin Syringe/Needle 28G X 1/2 for use with Levemir 2 times a day 1 Syringe 12h Dec, 30 days Active Ferrous Sulfate 325 (65 Fe) MG Orally 3 times a day 1 tablet 8h 30 days Active Pravastatin Sodium 20 mg Orally Once a day 1 tablet 24h 30 days Active Claritin 10 mg Orally Once a day 1 tablet 24h Active Levemir 100 UNIT/ML Subcutaneous daily 100 units 24h 30 days Active RESULTS Name Result Date Reference Range MICROALBUMIN, URINE (IN HOUSE) 2017-05-13 MICROALBUMIN Abnormal Lot # [id number] Exp date 02/2018 Clarity Slightly Cloudy Color Dark Yellow ALB 150 CRE 200 A:C (IN HOUSE) 30-300 Control + Control - Lot # [id number] Exp date 05/2017 IRON + TIBC 2017-05-13 Iron Bind.Cap.(TIBC) 549 250-450 UIBC 363 111-343 Iron, Serum 186 38-169 Iron Saturation 34 15-55 CBC 2017-05-13 WBC 4.2 3.4-10.8 RBC 4.24 4.14-5.80 Hemoglobin 10.3 12.6-17.7 Hematocrit 33.0 37.5-51.0 MCV 78 79-97 MCH 24.3 26.6-33.0 MCHC 31.2 31.5-35.7 RDW 18.3 12.3-15.4 Platelets 210 150-379 Neutrophils 56 Lymphs 29 Monocytes 9 Eos 5 Basos 1 Neutrophils (Absolute) 2.4 1.4-7.0 Lymphs (Absolute) 1.2 0.7-3.1 Monocytes(Absolute) 0.4 0.1-0.9 Eos (Absolute) 0.2 0.0-0.4 Baso (Absolute) 0.0 0.0-0.2 Immature Granulocytes 0 Immature Grans (Abs) 0.0 0.0-0.1 LIPID PANEL 2017-05-13 Cholesterol, Total 180 100-199 Triglycerides 141 0-149 HDL Cholesterol 42 >39 VLDL Cholesterol Heriberto 28 5-40 LDL Cholesterol Calc 110 0-99 CMP 2017-05-13 Glucose, Serum 161 65-99 BUN 22 6-24 Creatinine, Serum 1.02 0.76-1.27 eGFR If NonAfricn Am 82 >59 eGFR If Africn Am 95 >59 BUN/Creatinine Ratio 22 9-20 Sodium, Serum 140 134-144 Potassium, Serum 4.9 3.5-5.2 Chloride, Serum 99 96-106 Carbon Dioxide, Total 23 18-29 Calcium, Serum 10.2 8.7-10.2 Protein, Total, Serum 8.0 6.0-8.5 Albumin, Serum 4.4 3.5-5.5 Globulin, Total 3.6 1.5-4.5 A/G Ratio 1.2 1.2-2.2 Bilirubin, Total 0.3 0.0-1.2 Alkaline Phosphatase, S 71 39-117 AST (SGOT) 39 0-40 ALT (SGPT) 42 0-44 PROCEDURES Procedure Date Ordered Result Body Site MICROALBUMIN, SEMIQUANT May 13, 2017 COMPLETE CBC W/AUTO DIFF WBC May 13, 2017 VENIPUNCT, ROUTINE* May 13, 2017 IRON BINDING TEST May 13, 2017 COMPREHEN METABOLIC PANEL May 13, 2017 LIPID PANEL May 13, 2017 ASSAY OF IRON May 13, 2017 INSTRUCTIONS MEDICATIONS ADMINISTERED No Known Medications [...] Iron Def. Anemia, Chest pain, DM type 2-[facility] 3877
--- OUTSIDE RECORDS SUMMARY | 2018-03-21 21:53 | XMS REPORT ---
Author Author MARILEE FULLER Organization [facility] Address [address] [place] [address] Care Team Providers Care Generation Technologist Name Role Phone JONNY MARILEE Unavailable PROBLEMS Type Condition ICD9-CM Code IBS70-BV Code Onset Dates Condition Status SNOMED Code Problem Chronic obstructive pulmonary disease, unspecified COPD type J44.9 Active 12146669 Problem Essential hypertension I10 Active 80882172 Problem Epididymitis N45.1 Active 27556147 Problem Chronic hepatitis C without hepatic coma B18.2 Active 021915141 Problem Hypercholesteremia E78.0 Active 307385789 Problem 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 Active 8837700923978 Problem Mixed hyperlipidemia E78.2 Active 192383524 Problem Pure hypercholesterolemia, unspecified E78.00 Active 839752117 Problem Iron deficiency anemia due to chronic blood loss D50.0 Active 85924829 Problem Erectile dysfunction N52.9 Active 802357261 Problem Type 2 diabetes mellitus with other specified complication E11.69 Active 031285473615089 Problem Anemia D64.9 Active 432073895 Problem Proteinuria R80.9 Active 38496531 Problem HTN (hypertension) I10 Active 25435202 Problem Alcohol abuse F10.10 Active 22597649 Problem Drug abuse and dependence F19.20 Active 9104462 Problem Environmental allergies Z91.09 Active 790926273 Problem Dental caries, unspecified K02.9 Active 17730200 ALLERGIES No Information SOCIAL HISTORY Never Assessed [...] Iron Def. Anemia, Chest pain, DM type 2-[facility] 2616
--- OUTSIDE RECORDS SUMMARY | 2018-03-21 21:54 | XMS REPORT ---
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 Active 0763917580531 Problem Mixed hyperlipidemia E78.2 Active 114813845 Problem Benign prostatic hyperplasia without lower urinary tract symptoms N40.0 Active 407101506 Problem Anemia D64.9 Active 270400773 Problem Other iron deficiency anemia D50.8 Active 01659073 Problem Pure hypercholesterolemia, unspecified E78.00 Active 031818672 Problem Iron deficiency anemia due to chronic blood loss D50.0 Active 01855376 Problem Chronic hepatitis C without hepatic coma B18.2 Active 251022383 Problem Hypercholesteremia E78.0 Active 367546078 Problem Alcohol abuse F10.10 Active 91240326 Problem Environmental allergies Z91.09 Active 905813291 Problem Erectile dysfunction N52.9 Active 867844137 Problem Type 2 diabetes mellitus with other specified complication E11.69 Active 236274114767726 Problem Drug abuse and dependence F19.20 Active 0939920 Problem Dental caries, unspecified K02.9 Active 43611676 Problem Proteinuria R80.9 Active 09211875 Problem Chronic obstructive pulmonary disease, unspecified COPD type J44.9 Active 09137657 Problem HTN (hypertension) I10 Active 42701693 Problem Epididymitis N45.1 Active 72938635 ALLERGIES No Information ENCOUNTERS Encounter Location Date Diagnosis [facility] [address] [facility] [id number] [address] Mar, [facility] [id number] [address] Jan, [facility] [address], [place] [address] Nov, Dental caries K02.9 [facility] [address] [place] [address] [id number] Nov, Dental caries K02.9 [facility] [address] [place] [address] 537778- 5089 Oct, HTN (hypertension) I10 [facility] [id number] [place] [address] 25538- 7449 Sep, Type 2 diabetes mellitus with other specified complication E11.69 [facility] [id number] [place] [address] 72487- 4979 Sep, [facility] [id number] [place] [address] 31974- 9534 Aug, HTN (hypertension) I10 ; Type 2 diabetes mellitus with other specified complication E11.69 ; Benign prostatic hyperplasia without lower urinary tract symptoms N40.0 and Other iron deficiency anemia D50.8 [facility] [address] [place] [address] [id number] Aug, [facility] [id number] [place] [address] [id number] Aug, [facility] [address] [place] [address] [phone] Jul, Dental examination Z01.20 [facility] [address] [place] [address] 50809- 1846 Jul, Type 2 diabetes mellitus with other specified complication E11.69 [facility] [address] [place] [address] 09712- 5738 May, [facility] [id number] [place] [address] 330188- 3648 Apr, Type 2 diabetes mellitus with other specified complication E11.69 ; Proteinuria R80.9 ; HTN (hypertension) I10 ; Erectile dysfunction N52.9 ; Chronic obstructive pulmonary disease, unspecified COPD type J44.9 ; Chronic hepatitis C without hepatic coma B18.2 ; 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 ; Iron deficiency anemia due to chronic blood loss D50.0 and Hypercholesteremia E78.0 [facility] [address], [place] [address] Mar, Diabetes mellitus E11.9 ; Hypercholesteremia E78.0 and Type 2 diabetes mellitus with other specified complication E11.69 [facility] [address], [place] [address] Mar, [place] [id number] [place] [address] 50846- 2082 Mar, Iron deficiency anemia due to chronic blood loss D50.0 [facility] [address], [place] [address] 160[address] Mar, Type 2 diabetes mellitus with other specified complication E11.69 and Iron deficiency anemia due to chronic blood loss D50.0 [facility] [address], [place] [address] 1628 Mar, Iron deficiency anemia due to chronic blood loss D50.0 [facility] [address], [place] [address] February, [facility] [address], [place] [address] February, Iron deficiency anemia due to chronic blood loss D50.0 [facility] [address], [place] [address] February, [facility] [address], [place] [address] February, Anemia D64.9 [facility] [address], [place] [address] February, Anemia D64.9 and 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 [place] [address] [place] [address] 73462- 0109 12 Jan, 2017 Chest discomfort R07.89 ; Type 2 diabetes mellitus with other specified complication E11.69 ; HTN (hypertension) I10 ; Mixed hyperlipidemia E78.2 ; Dyspnea on exertion R06.09 and Tobacco use Z72.0 [place] [id number] [place] [address] 14625- 6618 16 Dec, 2016 [place] [id number] [place] [address] 87475- 3325 Dec, [place] [id number] [place] [address] 19237- 5655 Dec, Diabetes mellitus E11.9 ; HTN (hypertension) I10 ; Hypercholesteremia E78.0 ; Alcohol abuse F10.10 ; Proteinuria R80.9 ; Essential hypertension I10 ; Chronic hepatitis C with hepatic coma B18.2 ; Benign nodular prostatic hyperplasia with lower urinary tract symptoms N40.1 and Anemia D64.9 [place] [id number] [place] [address] 22413- 2713 Jul, Epididymitis N45.1 and Testicle swelling N50.89 [facility] [facility] [id number] [place] [address] 89009- 7654 Jul, Type 2 diabetes mellitus with other specified complication E11.69 ; Hypercholesteremia E78.0 ; Environmental allergies Z91.09 ; Erectile dysfunction N52.9 ; Alcohol abuse F10.10 ; Drug abuse and dependence F19.20 ; Epididymitis N45.1 ; Essential hypertension I10 and Chronic obstructive pulmonary disease, unspecified COPD type J44.9 [place] [id number] [place] [address] 81667- 1003 Jul, [place] [id number] [place] [address] 57809- 2481 Jul, Epididymitis, left N45.1 [place] [id number] [place] [address] 85852- 8169 February, Diabetes mellitus E11.9 [place] [address] [place] [address] 76784- 3012 27 Jan, 2016 Dental examination Z01.20 and Dental caries K02.9 [place] [id number] [place] [address] 49403- 4892 07 Jan, 2016 Type 2 diabetes mellitus with other specified complication E11.69 ; HTN (hypertension) I10 ; Hypercholesteremia E78.0 ; Alcohol abuse F10.10 ; Proteinuria R80.9 and Dental caries, unspecified K02.9 [place] [id number] [place] [address] 59389- 7490 Dec, [place] [address] [address]- 2445 Dec, Sebaceous cyst L72.3 ; HTN (hypertension) I10 ; Hypercholesteremia E78.0 ; Proteinuria R80.9 and Anemia D64.9 [place] [id number] [place] [address] 31661- 5151 Dec, Anemia D64.9 [place] [id number] [place] [address] 41664- 3194 Dec, Physical exam, pre-employment Z02.1 ; Drug abuse and dependence F19.20 ; UTI (urinary tract infection) N39.0 ; Proteinuria R80.9 ; Cellulitis L03.90 and Type 2 diabetes mellitus with other specified complication E11.69 [place] [address] [place] [address] 66209- 4286 Nov, Type 2 diabetes mellitus with other specified complication E11.69 ; Hepatitis C 070.70 ; Proteinuria R80.9 ; Diabetes mellitus E11.9 ; HTN (hypertension) I10 ; Hypercholesteremia E78.0 ; Environmental allergies Z91.09 ; Erectile dysfunction N52.9 and Alcohol abuse F10.10 [place] [id number] [place] [address] 81214- 9722 Oct, [facility] [address] [address] 08 Sep, 2015 Encounter for dental examination Z01.20 ; Dental examination Z01.20 and Dental caries K02.9 [facility] [address] [address] Aug, Tooth infection K04.7 [facility] [address], [place] [address]- 7794 Aug, [facility] [id number] [place] [address] 52160- 8432 Jul, [facility] [id number] [place] [address] 82288- 4651 Jun, Shoulder pain 719.41 [facility] [id number] [place] [address] 93937- 8281 Jun, Hepatitis C 070.70 [facility] [id number] [place] [address] 70457- 2694 Jun, Essential hypertension, benign 401.1 ; Psychosexual dysfunction with inhibited sexual excitement 302.72 ; Proteinuria 791.0 ; Unspecified viral hepatitis C without hepatic coma 070.70 ; Diabetes mellitus without mention of complication, type II or unspecified type, uncontrolled 250.02 ; Joint pain 719.40 ; Hepatitis C 070.70 and Hypercholesterolemia 272.0 [facility] [id number], [place] [address]- 1514 Jun, [facility] [id number] [place] [address] 43735- 6419 Apr, [facility] [address] [place] [address] 90666- 3643 Apr, [facility] [id number] [place] [address] 066123- 6262 Mar, [facility] [address] [address]68 Jan, [facility] [id number] [place] [address]- 9513 Jan, [facility] [address] [id number] [place] [address]- 7909 Dec, [facility] [address] [id number] [place] [address]- 8498 Dec, 2014 [facility] [address] [id number] [place] [address]- 4765 Dec, [facility] [address] [id number] [place] [address]- 1253 Dec, [facility] [address] [id number] [place] [address]- 8250 Jun, [facility] [address] [id number] [place] [address]- 2613 Jun, [facility] [address] [id number] [place] [address]- 2413 Jun, [facility] [address] [id number] [place] [address]- 8503 Jun, [facility] [address] [id number] [place] [address]- 9879 February, [facility] [address] [id number] [place] [address]- 5711 February, [facility] [address] [id number] [place] [address]- 8367 February, [facility] [address] [id number] [place] [address]- 6063 February, [facility] [place] [facility] [address] [id number] [place] [address]- 6913 February, [facility] [place] [facility] [address] [id number] [place] [address]- 8088 Dec, [facility] [place] [facility] [address] [id number] [place] [address]- 6590 Dec, [facility] [place] [facility] [address] [id number] [place] [address]- 4081 Oct, [facility] [place] [facility] [address] [id number] [place] [address]- 7247 Oct, [facility] [place] [facility] [address] [id number] [place] [address]- 6280 Sep, [facility] [place] [facility] [address] [id number] [place] [address]- 8227 Sep, [facility] [address] [id number] [place] [address]- 5860 Jul, [facility] [place] [facility] [address] [id number] [place] [address]- 5486 Jul, [facility] [address] [id number] [place] [address]- 2925 Jul, [facility] [address] [id number] [place] [address]- 9510 Jul, [facility] [place] [facility] [address] [id number] [place] [address]- 3433 Jun, [facility] [place] [facility] [address] [id number] [place] [address]- 1423 Jun, [facility] [place] [facility] [address] [id number] [place] [address]- 8724 Apr, [facility] [place] [facility] [address] [id number], [place] [address]- 8001 Apr, [facility] [place] [facility] [address] [id number] [place] [address]- 6892 Mar, [facility] [place] [facility] [address] [id number] [place] [address]- 4395 February, [facility] [place] [facility] [address] [id number] [place] [address]- 5748 February, [facility] [place] [facility] [address] [id number], [place] [address]- 7126 February, [facility] [address] [id number] [place] [address]- 9616 February, [facility] [address] [id number] [place] [address]- 7586 February, [facility] [address] [id number] [place] [address]- 1796 February, [facility] [address] [id number] [place] [address]- 7956 February, [facility] [address] [id number] [place] [address]- 7684 February, [facility] [address] [id number] [place] [address]- 8426 Dec, [facility] [address] [facility] [id number] [place] [address]- 6753 Nov, [facility] [address] [id number] [place] [address]- 9945 Nov, [facility] [address] [id number] [place] [address]- 3312 Nov, [facility] [address] [facility] [id number] [place] [address]- 5936 Oct, [facility] [address] [id number] [place] [address]- 6264 Sep, [facility] [address] [id number] [place] [address]- 3359 Sep, [facility] [address] [id number] [place] [address]- 0772 Sep, [facility] [address] [id number] [place] [address]- 5256 Sep, [facility] [address] [facility] [id number] [place] [address]- 4618 Sep, [facility] [address] [facility] [id number], [place] [address]- 6681 Sep, [facility] [id number] 8132 Sep, [facility] [address] [facility] [id number], [place] [address]- 9241 Sep, [facility] [address] [facility] [id number], [place] [address]- 9604 Sep, [facility] [address] [facility] [id number], [place] [address]- 2295 Sep, [facility] [address], [place] [address]- 5725 Sep, [facility] [address], [place] [address]- 6466 Sep, [facility] [id number] 6371 Aug, IMMUNIZATIONS No Known Immunizations SOCIAL HISTORY Never Assessed REASON FOR VISIT PLAN OF CARE VITAL SIGNS MEDICATIONS Medication Instructions Dosage Frequency Start Date End Date Duration Status Levemir 100 UNIT/ML Subcutaneous daily 100 units 24h 30 days Active Actos 45 MG Orally Once a day 1 tablet 24h 30 days Active Metformin HCl 1000 MG Orally Twice a day 1 tablet 12h 30 days Active Insulin Syringe/Needle 28G X 1/2 for use with Levemir 2 times a day 1 Syringe 12h Dec, 30 days Active Pravastatin Sodium 20 mg Orally Once a day 1 tablet 24h 30 days Active RESULTS No Results PROCEDURES [...] Iron Def. Anemia, Chest pain, DM type 2-[facility] 2616
[2018-03-21] MEDS ORDERED: ASPIRIN 81 MG CHEW (CHILDREN'S ASA) PO ONE (22:00)
[2018-03-21] MEDS ORDERED: NITROGLYCERIN 0.4 MG SL TABS BTL 25'S SL PRN (22:00)
--- NOTE | 2018-03-21 22:10 | ED General ---
General Chief Complaint: Chest Pain Stated Complaint: CP Nursing Triage Note: C/O CHEST PAIN Nursing Sepsis Screen: No Definite Risk Source of Information: Patient Exam Limitations: Other (PT'S SPEECH IS MUMBLED AND DIFFICULT TO UNDERSTAND. 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, AND BEGAN TO FEEL "DISORIENTED" STATES HE "DOESN'T FEEL RIGHT" AND HIS WHOLE FACE AND BOTH ARMS FEEL FUNNY, AND HIS MUSCLES HURT ALL OVER C/O CHEST TIGHTNESS C/O SORENESS IN HIS THROAT/NECK C/O "BURNING HOT SPOTS" ON BOTH SIDES OF HIS ABDOMEN BEGAN APPROXIMATELY AN HOUR AGO PT IS DIABETIC--TAKES BOTH INSULIN AND ORAL MEDICATIONS, BUT DOES NOT FOLLOW ANY DIET, AND DOES NOT CHECK HIS BLOOD SUGAR ( STATES HE IS NOT SUPPOSED TO BE DRIVING A TRUCK, BUT DOES IT ANYWAY) PT THOUGHT HIS BLOOD SUGAR WAS LOW--ACCUCHECK 265 BY EMS THEN THOUGHT HE WAS HAVING A STROKE--NO MOTOR WEAKNESS, NO HEADACHE, NO VISION CHANGES, NO DIZZINESS THEN THOUGHT HE MIGHT BE ANEMIC AGAIN--FELT THIS WAY WHEN HE WAS ANEMIC IN THE PAST THEN THOUGHT IT MIGHT BE HIS HEART--STATES HE "WAS SUPPOSED TO HAVE STENTS, BUT COULDN'T DO IT BECAUSE HE WAS ANEMIC" AND NEVER FOLLOWED UP WITH ANYONE PT DENIES ANY CURRENT DRUG OR ALCOHOL USE--"NOT FOR YEARS" --BUT HAS HISTORY OF IV DRUG USE, WELL ALCOHOL ABUSE ARRIVES AND APPEARS TO BE UNDER THE INFLUENCE OF SOME SUBSTANCE/S-- CONSTANT MOVEMENTS OF MOUTH/BODY, CANNOT SIT AT ALL, CANNOT STAND STILL. SPEECH VERY RAPID AND ERRATIC. PCP: Emy SANTOS AT [facility] Allergies and Home Medications Allergies Coded Allergies: No Known Drug Allergies (Unverified , 04/10/17) Home Medications Albuterol Sulfate 6.7 Gm Hfa.aer.ad, 2 PUFF IH QID PRN for SHORTNESS OF BREATH, (Reported) Ciprofloxacin HCl 500 Mg Tablet, 500 MG PO BID Prescribed by: TY GILES on 03/11/17 3227 Dicyclomine HCl 10 Mg Capsule, 10 MG PO Q6H PRN for ABDOMINAL PAIN Prescribed by: TY GILES on 03/11/172336 Ferrous Sulfate 325 Mg Tablet, 325 MG PO TID, (Reported) Hyoscyamine Sulfate 0.125 Mg Tab.subl, 1-2 TAB SL Q4H Prescribed by: TY GILES on 03/11/172336 Insulin Determir 1,000 Units/10 Ml Soln, 100 UNITS SQ HS, (Reported) Lactobacillus Acidophilus 1 Each Capsule, 2 EACH PO QID Prescribed by: TY GILES on 03/11/172336 Loratadine 10 Mg Tablet, 10 MG PO DAILY PRN for ALLERGIES, (Reported) Metformin HCl 1,000 Mg Tablet, 1,000 MG PO BID, (Reported) Metronidazole 500 Mg Tablet, 500 MG PO QID Prescribed by: TY GILES on 03/11/172336 Ondansetron 4 Mg Tab.rapdis, 4 MG PO Q4H Prescribed by: TY GILES on 03/11/172336 Pantoprazole Sodium 40 Mg Tablet.dr, 40 MG PO DAILY Take protonix 40 mg bid for two weeks and then once a week after that. Prescribed by: ROXY MURDOCK on 04/12/171543 Pioglitazone HCl 45 Mg Tablet, 45 MG PO DAILY, (Reported) Pravastatin Sodium 20 Mg Tablet, 20 MG PO HS, (Reported) Sildenafil Citrate 100 Mg Tablet, 100 MG PO UD PRN for ED, (Reported) Sucralfate 1 Gm Tablet, 1 GM PO QID Prescribed by: ROXY MURDOCK on 04/12/171543 Tamsulosin HCl 0.4 Mg Cap, 0.4 MG PO 1730, (Reported) Valsartan 40 Mg Tab, 40 MG PO DAILY, (Reported) [Vitamin C] , 1 TAB PO TID, (Reported) Patient Home Medication List Home Medication List Reviewed: Yes Review of Systems Constitutional: see HPI EENTM: see HPI, throat pain (ANTERIOR NECK PAIN ) Respiratory: no symptoms reported; No short of breath Cardiovascular: see HPI, chest pain Gastrointestinal: abdominal pain; No nausea, No vomiting Musculoskeletal: see HPI, muscle pain Skin: no symptoms reported Psychiatric/Neurological: See HPI; Denies Headache; Paresthesia; Denies Weakness; Other ("FEELS DISORIENTED" ) Past [place]-Eidkxd-Wyawyy Hx Patient Social History Alcohol Use: Regular Use (HISTORY OF ABUSE--PT STATES "I WAS AN ALCOHOLIC BUT NOW I ONLY DRINK A 6 PACK ON THE WEEKENDS" ) Number of Drinks Today: BB Alcohol Beverage of Choice: Beer, Millen Recreational Drug Use: Yes (+IV USE OF COCAINE, METH, THC) Drug of Choice: HISTORY OF IV COCAINE AND METH, AND MARIJUANA Smoking Status: Current Everyday Smoker (1 PPD) Type Used: Cigarettes (1 PPD) 2nd Hand Smoke Exposure: Yes Recent Foreign Travel: No Contact w/Someone Who Travel: No Recent Infectious Disease Expo: No Recent Hopitalizations: Yes (03/09/17) Immunizations Up To Date Tetanus Booster (TDap): Unknown Date of Pneumonia Vaccine: February 19, 2007 Seasonal Allergies Seasonal Allergies: Yes Past Medical History Surgeries: Yes (HERNIA REPAIR, EGD/COLONOSCOPY/COLON POLYPECTOMY 03/2017; RIGHT HIP AND RIGHT KNEE SURGERY) Abdominal, Orthopedic Respiratory: Yes (sleep apnea, used to use cpap) Sleep Apnea Currently Using CPAP: No (QUIT USING IT YEARS AGO) Currently Using BIPAP: No Cardiac: Yes Coronary Artery Disease, Heart Attack, High Cholesterol, Hypertension Neurological: Yes (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) Neuropathy Reproductive Disorders: No Sexually Transmitted Disease: No HIV/AIDS: No Genitourinary: Yes Renal Failure Gastrointestinal: Yes (HEPATITIS C--NO TREATMENT) Colitis, Gastroesophageal Reflux, Liver Disease/Jaundice, Hepatitis, Polyps, Hiatal Hernia Musculoskeletal: No Endocrine: Yes (MORBID OBESITY; TAKES INSULIN + PILLS, BUT IS NON-COMPLAINT IN ALL ASPECTS ) Diabetes, Insulin dep HEENT: No Loss of Vision: Bilateral Hearing Impairment: Denies Cancer: No Psychosocial: No Integumentary: No Blood Disorders: Yes (ANEMIA) Adverse Reaction/Blood Tranf: No (HAS HAD BLOOD WITH NO REACTION) YES Family Medical History Asthma 19 MOTHER Cataracts 19 FATHER Diabetes mellitus Hypertension 19 FATHER 19 MOTHER Diabetes, Hypertension Physical Exam Vital Signs Vital Signs - First Documented 03/21/18 03/21/18 21:58 22:00 Temp 98.2 Pulse 95 Resp 18 B/P (MAP) 121/78 (92) Pulse Ox 97 O2 Delivery Room Air Capillary Refill : Less Than 3 Seconds General Appearance: No Apparent Distress, Obese, Other (APPEARS SOMEWHAT DROWSY , SPEECH MUMBLED, YET CONSTANT MOVEMENTS) HEENT: PERRL/EOMI, Other (POOR DENTITION, MOST TEETH MISSING) Neck: Normal Inspection Respiratory: Normal Breath Sounds, No Accessory Muscle Use, No Respiratory Distress Cardiovascular: Regular Rate, Rhythm, No Murmur, Normal Peripheral Pulses Gastrointestinal: Non Tender, Soft Back: No CVA Tenderness Extremity: Normal Capillary Refill, No Calf Tenderness Neurologic/Psychiatric: Alert, Oriented x3, No Motor/Sensory Deficits (BUT HISTORY OF PERIPHERAL NEUROPATHY), medical psychotherapist II-XII Norm as Tested Skin: Normal Color, Warm/Dry, Tattoos/Piercings (TATTOOS) Progress/Results/Core Measures Suspected Sepsis Recent Fever Within 48 Hours: No Infection Criteria Present: None New/Unexplained Altered Menta: No Sepsis Screen: No Definite Risk SIRS Temperature:98.2 Pulse: 95 Respiratory Rate: 18 Laboratory Tests 03/21/18 22:09: White Blood Count 4.4 03/22/18 03:35: White Blood Count 4.1L Blood Pressure 121 /78 Mean: 92 Laboratory Tests 03/21/18 22:09: Creatinine 0.97, INR Comment 1.1, Platelet Count 194, Total Bilirubin 0.5 03/22/18 03:35: Creatinine 1.00, Platelet Count 188, Total Bilirubin 0.5 Results/Orders Lab Results Laboratory Tests Test 03/21/18 21:55 03/21/18 22:09 03/22/18 03:35 03/22/18 10:10 Range/Units Urine Opiates Screen NEGATIVE NEGATIVE Urine Oxycodone Screen NEGATIVE NEGATIVE Urine Methadone Screen NEGATIVE NEGATIVE Urine Propoxyphene Screen NEGATIVE NEGATIVE Urine Barbiturates Screen NEGATIVE NEGATIVE Ur Tricyclic Antidepressants Screen NEGATIVE NEGATIVE Urine Phencyclidine Screen NEGATIVE NEGATIVE Urine Amphetamines Screen POSITIVE H NEGATIVE Urine Methamphetamines Screen POSITIVE H NEGATIVE Urine Benzodiazepines Screen NEGATIVE NEGATIVE Urine Cocaine Screen NEGATIVE NEGATIVE Urine Cannabinoids Screen NEGATIVE NEGATIVE White Blood Count 4.4 4.1 L 4.3-11.0 10^3/uL Red Blood Count 4.26 L 4.41 4.35-5.85 10^6/uL Hemoglobin 12.0 L 12.1 L 13.3-17.7 G/DL Hematocrit 35 L 36 L 40-54 % Mean Corpuscular Volume 81 82 80-99 FL Mean Corpuscular Hemoglobin 28 27 25-34 PG Mean Corpuscular Hemoglobin Concent 35 34 32-36 G/DL Red Cell Distribution Width 13.4 13.7 10.0-14.5 % Platelet Count 194 188 130-400 10^3/uL Mean Platelet Volume 9.5 9.3 7.4-10.4 FL Neutrophils (%) (Auto) 61 58 42-75 % Lymphocytes (%) (Auto) 30 31 12-44 % Monocytes (%) (Auto) 6 8 0-12 % Eosinophils (%) (Auto) 2 2 0-10 % Basophils (%) (Auto) 1 0 0-10 % Neutrophils # (Auto) 2.6 2.4 1.8-7.8 X 10^3 Lymphocytes # (Auto) 1.3 1.3 1.0-4.0 X 10^3 Monocytes # (Auto) 0.3 0.3 0.0-1.0 X 10^3 Eosinophils # (Auto) 0.1 0.1 0.0-0.3 10^3/uL Basophils # (Auto) 0.0 0.0 0.0-0.1 10^3/uL Prothrombin Time 13.8 12.2-14.7 SEC INR Comment 1.1 0.8-1.4 Activated Partial Thromboplast Time 27 24-35 SEC Sodium Level 134 L 135 135-145 MMOL/L Potassium Level 4.2 4.1 3.6-5.0 MMOL/L Chloride Level 102 102 98-107 MMOL/L Carbon Dioxide Level 21 22 21-32 MMOL/L Anion Gap 11 11 5-14 MMOL/L Blood Urea Nitrogen 11 11 7-18 MG/DL Creatinine 0.97 1.00 0.60-1.30 MG/DL Estimat Glomerular Filtration Rate > 60 > 60 BUN/Creatinine Ratio 11 11 Glucose Level 250 H 235 H 70-105 MG/DL Calcium Level 9.2 9.2 8.5-10.1 MG/DL Magnesium Level 1.7 L 1.7 L 1.8-2.4 MG/DL Total Bilirubin 0.5 0.5 0.1-1.0 MG/DL Aspartate Amino Transf (AST/SGOT) 33 33 5-34 U/L Alanine Aminotransferase (ALT/SGPT) 41 40 0-55 U/L Alkaline Phosphatase 76 70 40-136 U/L Total Creatine Kinase 77 30-200 U/L Creatine Kinase MB 1.4 <6.6 NG/ML Troponin I < 0.30 < 0.30 < 0.30 <0.30 NG/ML B-Type Natriuretic Peptide 10.2 <100.0 PG/ML Total Protein 7.9 7.6 6.4-8.2 GM/DL Albumin 4.0 3.9 3.2-4.5 GM/DL Amylase Level 41 25-125 U/L Lipase 13 8-78 U/L Serum Alcohol < 10 <10 MG/DL Phosphorus Level 3.4 2.3-4.7 MG/DL Myoglobin 40.6 10.0-92.0 NG/ML Test 03/22/18 11:38 03/22/18 18:03 03/22/18 20:37 Range/Units Glucometer 175 H 228 H 165 H 70-110 MG/DL My Orders Orders - TY GILES DO Amylase (03/21/18 21:54) Cbc With Automated Diff (03/21/18 21:54) Comprehensive Metabolic Panel (03/21/18 21:54) Creatine Kinase (03/21/18 21:54) Creatine Kinase Mb (03/21/18 21:54) Lipase (03/21/18 21:54) Partial Thromboplastin Time (03/21/18 21:54) Protime With Inr (03/21/18 21:54) Troponin I (03/21/18 21:54) Chest 1 View, Ap/Pa Only (03/21/18 21:54) O2 (03/21/18 21:54) Ekg Tracing (03/21/18 21:54) Aspirin Chewable Tablet (Baby Aspirin Ch (03/21/18 22:00) BNP (03/21/18 21:54) Monitor-Rhythm Ecg Trace Only (03/21/18 21:54) Saline Lock/Iv-Start (03/21/18 21:54) Alcohol (03/21/18 21:54) Drug Screen Stat (Urine) (03/21/18 21:54) Magnesium (03/21/18 21:54) Nitroglycerin 0.4 Mg Btl 25's (Nitrostat (03/21/18 22:00) Ct Head Wo-R/O Stroke (03/21/18 21:54) Vital Signs/I&O 03/22/18 03/22/18 03/22/18 03/22/18 10:00 11:00 11:42 12:00 Pulse 64 65 64 Resp 11 11 11 B/P (MAP) 114/88 (97) 128/92 (104) 145/106 (119) Pulse Ox 95 95 98 96 O2 Delivery Room Air Room Air Room Air Room Air 03/22/18 03/22/18 03/22/18 03/22/18 13:00 13:00 14:00 15:00 Pulse 73 75 76 78 Resp 11 13 18 B/P (MAP) 138/96 (110) 130/97 (108) 134/101 (112) Pulse Ox 97 97 97 O2 Delivery Room Air Room Air Room Air 03/22/18 03/22/18 19:00 20:33 Temp 98.0 Pulse 81 81 Resp 16 B/P (MAP) 124/78 (93) Pulse Ox 97 O2 Delivery Room Air Capillary Refill : Less Than 3 Seconds Blood Pressure Mean: 92 Progress Note : Progress Note UNEVENTFUL ER STAY NO COMPLAINTS OF ANYTHING DURING ER STAY EVEN AFTER DISCUSSING TEST RESULTS, INCLUDING + DRUG SCREEN --PT STATES HE "DOESN'T KNOW HOW" HE MIGHT HAVE METH IN HIS SYSTEM--"HASN'T USED ANYTHING IN YEARS" ECG Initial ECG Impression Date: Mar 21, 2018 Initial ECG Impression Time: 22:04 Initial ECG Rate: 94 Initial ECG Rhythm: Normal Sinus Initial ECG Impression: Normal Initial ECG Comparisson: No Previous ECG Available Diagnostic Imaging Comments CXR--NO ACUTE PROCESS, PENDING RADIOLOGIST REVIEW CT HEAD--NO ACUTE PROCESS, PER [facility] VIA FAX @ [phone] Reviewed: Reviewed by Ga Departure Communication (Admissions) [id number]--SPOKE WITH DR. PERALTA, GAME DESIGNER FOR [facility]. ACCEPTS PT FOR ADMIT. Impression Primary Impression: Chest pain Additional Impressions: Illicit drug use IDDM (insulin dependent diabetes mellitus) Hypomagnesemia Disposition: ADMITTED INPATIENT Condition: Improved Admissions Decision to Admit Reason: Admit from ER (General) Decision to Admit/Date: Mar 21, 2018 Time/Decision to Admit Time: 23:15 Departure-Patient Inst. Referrals: CHITO SANTOS MD (PCP) Primary Care Physician MARILEE FULLER (Family) Primary Care Physician TY GILES DO Mar 21, 2018 22:10
[2018-03-21 22:18] LABS: AMPHETAMINE SCREEN, URINE POSITIVE (NEGATIVE); BARBITURATE SCREEN URINE NEGATIVE (NEGATIVE); BENZODIAZEPINES SCREEN URINE NEGATIVE (NEGATIVE); CANNABINOID SCREEN, URINE NEGATIVE (NEGATIVE); COCAINE SCREEN URINE NEGATIVE (NEGATIVE); METHADONE STAT NEGATIVE (NEGATIVE); METHAMPHETAMINE SCREEN URINE S POSITIVE (NEGATIVE); OPIATE SCREEN URINE NEGATIVE (NEGATIVE); OXYCODONE STAT NEGATIVE (NEGATIVE); PROPOXYPHENE STAT NEGATIVE (NEGATIVE); TRICYCLIC ANTIDEPRESSANTS SCRE NEGATIVE (NEGATIVE)
[2018-03-21 22:23] LABS: BASOPHILS % (AUTO) 1 % (0-10); EOSINOPHILS # (AUTO) 0.1 10^3/uL (0.0-0.3); EOSINOPHILS % (AUTO) 2 % (0-10); HEMATOCRIT 35 % (40-54); LYMPHOCYTES # (AUTO) 1.3 X 10^3 (1.0-4.0); LYMPHOCYTES % (AUTO) 30 % (12-44); MEAN CORPUSCULAR HEMOGLOBIN 28 PG (25-34); MEAN CORPUSCULAR HGB CONC 35 G/DL (32-36); MEAN CORPUSCULAR VOLUME 81 FL (80-99); MEAN PLATELET VOLUME 9.5 FL (7.4-10.4); MONOCYTES # (AUTO) 0.3 X 10^3 (0.0-1.0); MONOCYTES % (AUTO) 6 % (0-12); NEUTROPHILS # (AUTO) 2.6 X 10^3 (1.8-7.8); NEUTROPHILS % (AUTO) 61 % (42-75); PLATELET COUNT 194 10^3/uL (130-400); RED BLOOD COUNT 4.26 10^6/uL (4.35-5.85); RED CELL DISTRIBUTION WIDTH 13.4 % (10.0-14.5); WHITE BLOOD COUNT 4.4 10^3/uL (4.3-11.0)
[2018-03-21 22:27] LABS: INR 1.1 (0.8-1.4); PROTHROMBIN TIME PATIENT 13.8 SEC (12.2-14.7)
[2018-03-21 22:39] LABS: ALANINE AMINOTRANSFERASE 41 U/L (0-55); ALKALINE PHOSPHATASE 76 U/L (40-136); AMYLASE 41 U/L (25-125); BILIRUBIN,TOTAL 0.5 MG/DL (0.1-1.0); BUN/CREATININE RATIO 11; CALCIUM 9.2 MG/DL (8.5-10.1); CARBON DIOXIDE 21 MMOL/L (21-32); CHLORIDE 102 MMOL/L (98-107); CREATINE KINASE 77 U/L (30-200); CREATININE SERUM 0.97 MG/DL (0.60-1.30); GFR ESTIMATED > 60; GLUCOSE 250 MG/DL (70-105); LIPASE 13 U/L (8-78); MAGNESIUM 1.7 MG/DL (1.8-2.4); POTASSIUM 4.2 MMOL/L (3.6-5.0); SODIUM 134 MMOL/L (135-145); TOTAL PROTEIN 7.9 GM/DL (6.4-8.2)
[2018-03-21 22:45] LABS: CREATINE KINASE MB 1.4 NG/ML (<6.6)
[2018-03-22] VITALS (16 sets, daily range): BP systolic 114–145; BP diastolic 78–106
[2018-03-22] MEDS: KETOROLAC 30 MG/ML VIAL IVP PRN ×2 (03:37→16:34)
[2018-03-22 03:58] LABS: BASOPHILS % (AUTO) 0 % (0-10); EOSINOPHILS # (AUTO) 0.1 10^3/uL (0.0-0.3); EOSINOPHILS % (AUTO) 2 % (0-10); HEMATOCRIT 36 % (40-54); HEMOGLOBIN 12.1 G/DL (13.3-17.7); LYMPHOCYTES # (AUTO) 1.3 X 10^3 (1.0-4.0); LYMPHOCYTES % (AUTO) 31 % (12-44); MEAN CORPUSCULAR HEMOGLOBIN 27 PG (25-34); MEAN CORPUSCULAR HGB CONC 34 G/DL (32-36); MEAN CORPUSCULAR VOLUME 82 FL (80-99); MEAN PLATELET VOLUME 9.3 FL (7.4-10.4); MONOCYTES # (AUTO) 0.3 X 10^3 (0.0-1.0); MONOCYTES % (AUTO) 8 % (0-12); NEUTROPHILS # (AUTO) 2.4 X 10^3 (1.8-7.8); NEUTROPHILS % (AUTO) 58 % (42-75); PLATELET COUNT 188 10^3/uL (130-400); RED BLOOD COUNT 4.41 10^6/uL (4.35-5.85); RED CELL DISTRIBUTION WIDTH 13.7 % (10.0-14.5); WHITE BLOOD COUNT 4.1 10^3/uL (4.3-11.0)
[2018-03-22 04:45] LABS: ALANINE AMINOTRANSFERASE 40 U/L (0-55); ALBUMIN 3.9 GM/DL (3.2-4.5); ALKALINE PHOSPHATASE 70 U/L (40-136); BILIRUBIN,TOTAL 0.5 MG/DL (0.1-1.0); BUN/CREATININE RATIO 11; CALCIUM 9.2 MG/DL (8.5-10.1); CARBON DIOXIDE 22 MMOL/L (21-32); CHLORIDE 102 MMOL/L (98-107); GFR ESTIMATED > 60; GLUCOSE 235 MG/DL (70-105); MAGNESIUM 1.7 MG/DL (1.8-2.4); MYOGLOBIN SERUM 40.6 NG/ML (10.0-92.0); PHOSPHORUS 3.4 MG/DL (2.3-4.7); POTASSIUM 4.1 MMOL/L (3.6-5.0); SODIUM 135 MMOL/L (135-145); TOTAL PROTEIN 7.6 GM/DL (6.4-8.2)
[2018-03-22] MEDS ORDERED: MAGNESIUM 1 GM/100 ML IVPB 200 ML IV ONE (05:04)
[2018-03-22] MEDS: MAGNESIUM 1 GM/100 ML IVPB 100 ML IV SCH ×2 (05:14→06:06)
[2018-03-22] MEDS: inSUlin ASPART (NovoLOG) 1 UNIT/0.01 ML (CHARGE PER UNIT) SC SCH ×4 (05:14→20:56)
[2018-03-22] MEDS ORDERED: MAGNESIUM 1 GM/100 ML IVPB 100 ML IV SCH (06:00)
[2018-03-22] MEDS ORDERED: POTASSIUM CL 10MEQ/50ML IVPB 50 ML IV SCH (06:00)
[2018-03-22] MEDS ORDERED: KCL 20 MEQ TAB (K-DUR) PO SCH (06:00)
--- NOTE | 2018-03-22 06:29 | Diagnostic Imaging Report ---
EXAMINATION: CHEST 1 VIEW, AP/PA ONLY INDICATION: Stroke. COMPARISON: Chest radiograph 03/09/2017. FINDINGS: Normal heart size and pulmonary vascularity. No focal pulmonary opacity, pleural effusion or pneumothorax. Calcified aorta. No acute osseous findings. IMPRESSION: No acute cardiopulmonary findings. Dictated by: Dictated on workstation # [id number]
--- NOTE | 2018-03-22 06:45 | Diagnostic Imaging Report ---
EXAM: CT HEAD WO-R/O STROKE INDICATION: Stroke. COMPARISON: None. FINDINGS: No CT evidence for territorial infarction. Moderate generalized cerebral and cerebellar parenchymal volume loss. Intracranial vascular calcifications. No intracranial hemorrhage, mass effect, hydrocephalus or extra-axial fluid collections. Osseous structures are intact. Mild mucosal thickening in the right maxillary sinus. The mastoids are clear. IMPRESSION: No acute intracranial CT findings. Dictated by: Dictated on workstation # [id number]
--- NOTE | 2018-03-22 07:43 | Diagnostic Imaging Report ---
INDICATION: Chest pain. COMPARISON: 03/21/2018. FINDINGS: The heart size, mediastinal configuration, and pulmonary vascularity are within normal limits. There is no pleural effusion, pneumothorax, or pneumonia. The osseous structures are unremarkable. IMPRESSION: No acute cardiopulmonary abnormality. Dictated by: Dictated on workstation # [id number]
--- NOTE | 2018-03-22 09:39 | History & Physicial (CHS) ---
HPI History of Present Illness: 57-year-old male presents to [facility] emergency department during the evening of March 31 and ultimately admitted in the welding specialist of March 22, 2018 with chest pain. 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 He is a known diabetic and he does report overall his control is fair. Regarding his chest pain and he describes it primarily lower in the chest and on both right and left side. He did not have any nausea or vomiting He had no diaphoresis. Source: patient Exam Limitations: no limitations Date seen by provider: Mar 22, 2018 Time Seen by Provider: 06:50 Attending Physician Karlos Peralta MD PCP Wagner Franklin MD Consult Date of Admission Mar 22, 2018 at 00:00 Home Medications Home Medications Reviewed patient Home Medication Reconciliation performed by pharmacy medication reconciliations precision agriculture technician and/or nursing. Patients Allergies have been reviewed. Allergies Coded Allergies: No Known Drug Allergies (Unverified , 04/10/17) PFM-Pgxeea-Bhvwpe Hx Patient Social History Alcohol Use: Rarely Uses Recreational Drug Use: No Drug of Choice: HISTORY OF COCAINE, METH, AND MARIJUANA Smoking Status: Current Everyday Smoker Type Used: Cigarettes 2nd Hand Smoke Exposure: Yes Recent Foreign Travel: No Contact w/other who traveled: No Recent Hopitalizations: Yes (03/09/17) Recent Infectious Disease Expo: No Physical Abuse Screen: No Sexual Abuse: No Immunizations Up To Date Tetanus Booster (TDap): Unknown Date of Pneumonia Vaccine: February 19, 2007 Past Medical History PMHx: DMII HTN HLD Chronic Hep C Iron deficiency anemia of unclear etiology PSurgHx: Right knee Right hip Family Medical History Significant Family History: Diabetes, Hypertension Family History: Asthma 19 MOTHER Cataracts 19 FATHER Diabetes mellitus Hypertension 19 FATHER 19 MOTHER Review of Systems (CHC) Constitutional: see HPI Reviewed Test Results Reviewed Test Results Lab Laboratory Tests Test 03/21/18 21:55 03/21/18 22:09 03/22/18 03:35 Range/Units Urine Opiates Screen NEGATIVE NEGATIVE Urine Oxycodone Screen NEGATIVE NEGATIVE Urine Methadone Screen NEGATIVE NEGATIVE Urine Propoxyphene Screen NEGATIVE NEGATIVE Urine Barbiturates Screen NEGATIVE NEGATIVE Ur Tricyclic Antidepressants Screen NEGATIVE NEGATIVE Urine Phencyclidine Screen NEGATIVE NEGATIVE Urine Amphetamines Screen POSITIVE H NEGATIVE Urine Methamphetamines Screen POSITIVE H NEGATIVE Urine Benzodiazepines Screen NEGATIVE NEGATIVE Urine Cocaine Screen NEGATIVE NEGATIVE Urine Cannabinoids Screen NEGATIVE NEGATIVE White Blood Count 4.4 4.1 L 4.3-11.0 10^3/uL Red Blood Count 4.26 L 4.41 4.35-5.85 10^6/uL Hemoglobin 12.0 L 12.1 L 13.3-17.7 G/DL Hematocrit 35 L 36 L 40-54 % Mean Corpuscular Volume 81 82 80-99 FL Mean Corpuscular Hemoglobin 28 27 25-34 PG Mean Corpuscular Hemoglobin Concent 35 34 32-36 G/DL Red Cell Distribution Width 13.4 13.7 10.0-14.5 % Platelet Count 194 188 130-400 10^3/uL Mean Platelet Volume 9.5 9.3 7.4-10.4 FL Neutrophils (%) (Auto) 61 58 42-75 % Lymphocytes (%) (Auto) 30 31 12-44 % Monocytes (%) (Auto) 6 8 0-12 % Eosinophils (%) (Auto) 2 2 0-10 % Basophils (%) (Auto) 1 0 0-10 % Neutrophils # (Auto) 2.6 2.4 1.8-7.8 X 10^3 Lymphocytes # (Auto) 1.3 1.3 1.0-4.0 X 10^3 Monocytes # (Auto) 0.3 0.3 0.0-1.0 X 10^3 Eosinophils # (Auto) 0.1 0.1 0.0-0.3 10^3/uL Basophils # (Auto) 0.0 0.0 0.0-0.1 10^3/uL Prothrombin Time 13.8 12.2-14.7 SEC INR Comment 1.1 0.8-1.4 Activated Partial Thromboplast Time 27 24-35 SEC Sodium Level 134 L 135 135-145 MMOL/L Potassium Level 4.2 4.1 3.6-5.0 MMOL/L Chloride Level 102 102 98-107 MMOL/L Carbon Dioxide Level 21 22 21-32 MMOL/L Anion Gap 11 11 5-14 MMOL/L Blood Urea Nitrogen 11 11 7-18 MG/DL Creatinine 0.97 1.00 0.60-1.30 MG/DL Estimat Glomerular Filtration Rate > 60 > 60 BUN/Creatinine Ratio 11 11 Glucose Level 250 H 235 H 70-105 MG/DL Calcium Level 9.2 9.2 8.5-10.1 MG/DL Magnesium Level 1.7 L 1.7 L 1.8-2.4 MG/DL Total Bilirubin 0.5 0.5 0.1-1.0 MG/DL Aspartate Amino Transf (AST/SGOT) 33 33 5-34 U/L Alanine Aminotransferase (ALT/SGPT) 41 40 0-55 U/L Alkaline Phosphatase 76 70 40-136 U/L Total Creatine Kinase 77 30-200 U/L Creatine Kinase MB 1.4 <6.6 NG/ML Troponin I < 0.30 < 0.30 <0.30 NG/ML B-Type Natriuretic Peptide 10.2 <100.0 PG/ML Total Protein 7.9 7.6 6.4-8.2 GM/DL Albumin 4.0 3.9 3.2-4.5 GM/DL Amylase Level 41 25-125 U/L Lipase 13 8-78 U/L Serum Alcohol < 10 <10 MG/DL Phosphorus Level 3.4 2.3-4.7 MG/DL Myoglobin 40.6 10.0-92.0 NG/ML [id number] PT STATUS: ADM Eileen : 1960 PHYSICIAN: TY GILES DO ADMIT DATE: 03/22/18/ICU Draft Date of Exam:03/21/18 CHEST 1 VIEW, AP/PA ONLY EXAMINATION: CHEST 1 VIEW, AP/PA ONLY INDICATION: Stroke. COMPARISON: Chest radiograph 03/09/2017. FINDINGS: Normal heart size and pulmonary vascularity. No focal pulmonary opacity, pleural effusion or pneumothorax. Calcified aorta. No acute osseous findings. IMPRESSION: No acute cardiopulmonary findings. Dictated on workstation # [id number] Dict: 03/22/18 0623 Trans: 03/22/18 0628 [facility] [id number] Interpreted by: GABRIELLA WELLS MD Electronically signed by: NAME: PRIETO MARRERO [facility] REC#: [id number] PT STATUS: ADM Eileen : 1960 PHYSICIAN: TY GILES DO ADMIT DATE: 03/22/18/ICU Signed Date of Exam: 03/21/18 CT HEAD WO-R/O STROKE EXAM: CT HEAD WO-R/O STROKE INDICATION: Stroke. COMPARISON: None. FINDINGS: No CT evidence for territorial infarction. Moderate generalized cerebral and cerebellar parenchymal volume loss. Intracranial vascular calcifications. No intracranial hemorrhage, mass effect, hydrocephalus or extra-axial fluid collections. Osseous structures are intact. Mild mucosal thickening in the right maxillary sinus. The mastoids are clear. IMPRESSION: No acute intracranial CT findings. Dictated by: Dictated on workstation # [id number] Dict: 03/22/18635 Trans: 03/22/18929 Interpreted by: GABRIELLA WELLS MD Electronically signed by: GABRIELLA WELLS MD 03/22/18929 Physical Exam-(CHC) Physical Exam Vital Signs VS - Last 72 Hours, by Label 03/21/18 03/21/18 03/22/18 03/22/18 21:58 22:00 01:50 02:08 Temp 98.2 98.2 97.1 Pulse 95 76 80 Resp 18 12 12 B/P (MAP) 121/78 (92) 132/91 123/86 (98) Pulse Ox 97 96 97 O2 Delivery Room Air Room Air 03/22/18 03/22/18 03/22/18 03/22/18 02:19 02:48 03:00 03:15 Pulse 85 80 Resp 18 B/P (MAP) 135/91 (106) Pulse Ox 98 98 98 O2 Delivery Room Air Room Air Room Air 03/22/18 03/22/18 03/22/18 03/22/18 04:00 04:05 05:00 06:00 Temp 97.2 98.0 Pulse 69 76 64 Resp 12 15 16 B/P (MAP) 129/91 (104) 135/88 (104) 133/86 (102) Pulse Ox 96 96 94 O2 Delivery Room Air Room Air Room Air 03/22/18 03/22/18 07:00 08:00 Pulse 68 Pulse Ox 98 O2 Delivery Room Air Capillary Refill : Less Than 3 Seconds General Appearance: no apparent distress Eyes: Bilateral Eye Normal Inspection HEENT: pharynx normal Neck: non-tender Respiratory: lungs clear, normal breath sounds, no accessory muscle use Cardiovascular: regular rate, rhythm, other (slight ankle edema) Gastrointestinal: soft, other (no rebound tenderness) Rectal: deferred Skin: normal color Assessment/Plan Assessment/Plan Admission Dx 1. Chest painand he does have cardiac risk factors 2. Insulin-dependent diabetes mellitus 3. Methamphetamine use by drug screen Admission Status: Observation Reason for Inpatient Admission: further cardiac evaluation and cardiology consultation Assessment & Plan 1. Chest painand he does have cardiac risk factors -patient to be admitted to cardiac stepdown for further cardiac monitoring. -He will also have cardiology consultation due to the chest pain. -If cardiac workup negative he may need further GI workup and he has had endoscopies in the past for both lower and upper 2. Insulin-dependent diabetes mellitus -he will be continued on his insulin an on sliding scale as needed. 3. Methamphetamine use by drug screen -This will need to be addressed and corrected Clinical Quality Measures DVT/VTE Risk/Contraindication: Risk Factor Score Per Nursin RFS Level Per Nursing on Admit: 3=High KARLOS PERALTA MD Mar 22, 2018 09:39
[2018-03-22] MEDS: ASPIRIN E.C. 81 MG (ECOTRIN) TAB PO SCH (10:29)
[2018-03-22] MEDS ORDERED: NITROGLYCERIN 0.4 MG SL TABS BTL 25'S SL PRN (10:45)
--- NOTE | 2018-03-22 12:04 | Consultation-Cardiology ---
HPI-Cardiology Cardiology Consultation: Date of Consultation 03/22/18 Time Seen by Provider: 12:20 Date of Admission 03/21/18 Attending Physician Karlos Waldrop MD Admitting Physician Wagner Franklin MD Consulting Physician REY LEMUS MD, MA, FACP, FACC, FSCAI, CCDS HPI: Chief Complaint: Chest pain and gen body pain 57 yo man admitted through ER with generalized body pains, including chest pain : L and R parasternal, mod to severe, radiating all over the body, w/o any relieving or aggravating factors, associated with some shortness of breath, sharp in character, lasting many hours and gradually subsiding, not experienced before Has chronic mod exertional shortness of breath Denies palp or syncope Denies fever or chills Denies ankle swelling Review of Systems-Cardiology Review of Systems Constitutional: malaise, tiredness; No weight loss, No weight gain Eyes: No vision change Ears/Nose/Throat: No ear discharge, No nasal drainage, No recent hearing loss Respiratory: As described under HPI Cardiovascular: As described under HPI Gastrointestinal: No constipation, No diarrhea, No vomiting Genitourinary: No dysuria, No hematuria Musculoskeletal: As describe under HPI Skin: No rash, No ulcerations Psychiatric/Neurological: No seizure, No focal weakness, No syncope Hematologic: No bleeding abnormalities [id number]-Bybeuw Hx Patient Social History Alcohol Use: Rarely Uses Recreational Drug Use: No Drug of Choice: HISTORY OF COCAINE, METH, AND MARIJUANA Smoking Status: Current Everyday Smoker Type Used: Cigarettes 2nd Hand Smoke Exposure: Yes Recent Foreign Travel: No Recent Infectious Disease Expo: No Hospitalization with Isolation: Denies Physical Abuse Screen: No Sexual Abuse: No Immunizations Up To Date Tetanus Booster (TDap): Unknown Date of Pneumonia Vaccine: February 19, 2007 Past Medical History PMH As described under Assessment. Family Medical History Family Medical History: He does not report fam h/o early CAD Family History: Asthma 19 MOTHER Cataracts 19 FATHER Diabetes mellitus Hypertension 19 FATHER 19 MOTHER Allergies and Home Medications Allergies Coded Allergies: No Known Drug Allergies (Unverified , 04/10/17) Home Medications Albuterol Sulfate 6.7 Gm Hfa.aer.ad, 2 PUFF IH QID PRN for SHORTNESS OF BREATH, (Reported) Ciprofloxacin HCl 500 Mg Tablet, 500 MG PO BID Prescribed by: TY GILES on 03/11/172336 Dicyclomine HCl 10 Mg Capsule, 10 MG PO Q6H PRN for ABDOMINAL PAIN Prescribed by: TY GILES on 03/11/172336 Ferrous Sulfate 325 Mg Tablet, 325 MG PO TID, (Reported) Hyoscyamine Sulfate 0.125 Mg Tab.subl, 1-2 TAB SL Q4H Prescribed by: TY GILES on 03/11/172336 Insulin Determir 1,000 Units/10 Ml Soln, 100 UNITS SQ HS, (Reported) Lactobacillus Acidophilus 1 Each Capsule, 2 EACH PO QID Prescribed by: TY GILES on 03/11/172336 Loratadine 10 Mg Tablet, 10 MG PO DAILY PRN for ALLERGIES, (Reported) Metformin HCl 1,000 Mg Tablet, 1,000 MG PO BID, (Reported) Metronidazole 500 Mg Tablet, 500 MG PO QID Prescribed by: TY GILES on 03/11/172336 Ondansetron 4 Mg Tab.rapdis, 4 MG PO Q4H Prescribed by: TY GILES on 03/11/172336 Pantoprazole Sodium 40 Mg Tablet.dr, 40 MG PO DAILY Take protonix 40 mg bid for two weeks and then once a week after that. Prescribed by: ROXY MURDOCK on 04/12/171543 Pioglitazone HCl 45 Mg Tablet, 45 MG PO DAILY, (Reported) Pravastatin Sodium 20 Mg Tablet, 20 MG PO HS, (Reported) Sildenafil Citrate 100 Mg Tablet, 100 MG PO UD PRN for ED, (Reported) Sucralfate 1 Gm Tablet, 1 GM PO QID Prescribed by: ROXY MURDOCK on 04/12/171543 Tamsulosin HCl 0.4 Mg Cap, 0.4 MG PO 1730, (Reported) Valsartan 40 Mg Tab, 40 MG PO DAILY, (Reported) [Vitamin C] , 1 TAB PO TID, (Reported) Patient Home Medication List Home Medication List Reviewed: Yes Physical Exam-Cardiology Physical Exam Vital Signs/I&O 03/22/18 03/22/18 03/22/18 03/22/18 01:50 02:08 02:19 02:48 Temp 98.2 97.1 Pulse 76 80 85 Resp 12 12 B/P (MAP) 132/91 123/86 (98) Pulse Ox 96 97 98 O2 Delivery Room Air Room Air 03/22/18 03/22/18 03/22/18 03/22/18 03:00 03:15 04:00 04:05 Temp 97.2 Pulse 80 69 Resp 18 12 B/P (MAP) 135/91 (106) 129/91 (104) Pulse Ox 98 98 96 O2 Delivery Room Air Room Air Room Air 03/22/18 03/22/18 03/22/18 03/22/18 05:00 06:00 07:00 08:00 Temp 98.0 Pulse 76 64 68 Resp 15 16 B/P (MAP) 135/88 (104) 133/86 (102) Pulse Ox 96 94 98 O2 Delivery Room Air Room Air Room Air 03/22/18 11:42 Pulse Ox 98 O2 Delivery Room Air Capillary Refill : Less Than 3 Seconds Constitutional: AAO x 3, well-developed, other HEENT: PERRL, EOMI, hearing is well preserved; No xanthelasmas are seen Neck: carotid pulses are 2 + bilaterally, with good upstrokes Respiratory: No accessory muscle use; lungs clear to percussion, lungs clear to auscultation Cardiovascular: regular rate-rhythm, S1 and S2, systolic murmur (faint SASHA at card base) Gastrointestinal: No tender; soft, audible bowel sounds Extremities: No clubbing, No cyanosis, No significant edema Neurologic/Psychiatric: grossly intact, power is 5/5 both on sides Skin: No rash on exposed areas, No ulcerations on exposed areas Data Review Labs Laboratory Tests 03/21/18 21:55: Urine Opiates Screen NEGATIVE, Urine Oxycodone Screen NEGATIVE, Urine Methadone Screen NEGATIVE, Urine Propoxyphene Screen NEGATIVE, Urine Barbiturates Screen NEGATIVE, Ur Tricyclic Antidepressants Screen NEGATIVE, Urine Phencyclidine Screen NEGATIVE, Urine Amphetamines Screen POSITIVEH, Urine Methamphetamines Screen POSITIVEH, Urine Benzodiazepines Screen NEGATIVE, Urine Cocaine Screen NEGATIVE, Urine Cannabinoids Screen NEGATIVE 03/21/18 22:09: White Blood Count 4.4, Red Blood Count 4.26L, Hemoglobin 12.0L, Hematocrit 35L, Mean Corpuscular Volume 81, Mean Corpuscular Hemoglobin 28, Mean Corpuscular Hemoglobin Concent 35, Red Cell Distribution Width 13.4, Platelet Count 194, Mean Platelet Volume 9.5, Neutrophils (%) (Auto) 61, Lymphocytes (%) (Auto) 30, Monocytes (%) (Auto) 6, Eosinophils (%) (Auto) 2, Basophils (%) (Auto) 1, Neutrophils # (Auto) 2.6, Lymphocytes # (Auto) 1.3, Monocytes # (Auto) 0.3, Eosinophils # (Auto) 0.1, Basophils # (Auto) 0.0, Prothrombin Time 13.8, INR Comment 1.1, Activated Partial Thromboplast Time 27, Sodium Level 134L, Potassium Level 4.2, Chloride Level 102, Carbon Dioxide Level 21, Anion Gap 11, Blood Urea Nitrogen 11, Creatinine 0.97, Estimat Glomerular Filtration Rate > 60 , BUN/Creatinine Ratio 11, Glucose Level 250H, Calcium Level 9.2, Magnesium Level 1.7L, Total Bilirubin 0.5, Aspartate Amino Transf (AST/SGOT) 33, Alanine Aminotransferase (ALT/SGPT) 41, Alkaline Phosphatase 76, Total Creatine Kinase 77, Creatine Kinase MB 1.4, Troponin I < 0.30, B-Type Natriuretic Peptide 10.2, Total Protein 7.9, Albumin 4.0, Amylase Level 41, Lipase 13, Serum Alcohol < 10 03/22/18 03:35: White Blood Count 4.1L, Red Blood Count 4.41, Hemoglobin 12.1L, Hematocrit 36L, Mean Corpuscular Volume 82, Mean Corpuscular Hemoglobin 27, Mean Corpuscular Hemoglobin Concent 34, Red Cell Distribution Width 13.7, Platelet Count 188, Mean Platelet Volume 9.3, Neutrophils (%) (Auto) 58, Lymphocytes (%) (Auto) 31, Monocytes (%) (Auto) 8, Eosinophils (%) (Auto) 2, Basophils (%) (Auto) 0, Neutrophils # (Auto) 2.4, Lymphocytes # (Auto) 1.3, Monocytes # (Auto) 0.3, Eosinophils # (Auto) 0.1, Basophils # (Auto) 0.0, Sodium Level 135, Potassium Level 4.1, Chloride Level 102, Carbon Dioxide Level 22, Anion Gap 11, Blood Urea Nitrogen 11, Creatinine 1.00, Estimat Glomerular Filtration Rate > 60, BUN/ Creatinine Ratio 11, Glucose Level 235H, Calcium Level 9.2, Magnesium Level 1.7L , Total Bilirubin 0.5, Aspartate Amino Transf (AST/SGOT) 33, Alanine Aminotransferase (ALT/SGPT) 40, Alkaline Phosphatase 70, Troponin I < 0.30, Total Protein 7.6, Albumin 3.9, Phosphorus Level 3.4, Myoglobin 40.6 03/22/18 10:10: Troponin I < 0.30 03/22/18 11:38: Glucometer 175H Laboratory Tests 03/21/18 22:09 03/22/18 03:35 A/P-Cardiology Assessment/Admission Diagnosis Chest discomfort w/o and evidence of ACS H/o methamphetamine use and evidence of such use shortly prior to this admission Presentation with GI bleed in February 2017 requiring blood transfusions. Endoscopy by Dr Hansen in March 2017 showed gastritis, HH and colon polyps Obesity with BMI approx 35 Chronic tobacco use DM II Hypertension CAD, as indicated by LAD calcification on CT of 02/02/16 Mild aortic root dilatation (4.3 cm arnie) on CT of January 2016 Hep C Discussion and Recomendations * I had a discussion with him regarding his CV issues and his risk factors * Advised to refrain from tobacco and street drug use * Transfer to floor and increase ambulation * Monitor labs Clinical Quality Measures DVT/VTE Risk/Contraindication: Risk Factor Score Per Nursin RFS Level Per Nursing on Admit: 3=High REY LEMUS MD FACP [facility] Mar 22, 2018 12:04
[2018-03-22] MEDS ORDERED: VALSARTAN 80 MG (DIOVAN) TAB PO NR (14:00)
[2018-03-23] VITALS: BP 132/78
[2018-03-23 04:00] VITALS: BP 124/73
[2018-03-23 06:02] LABS: BASOPHILS % (AUTO) 0 % (0-10); EOSINOPHILS # (AUTO) 0.1 10^3/uL (0.0-0.3); EOSINOPHILS % (AUTO) 2 % (0-10); HEMATOCRIT 35 % (40-54); LYMPHOCYTES # (AUTO) 1.2 X 10^3 (1.0-4.0); LYMPHOCYTES % (AUTO) 26 % (12-44); MEAN CORPUSCULAR HEMOGLOBIN 28 PG (25-34); MEAN CORPUSCULAR HGB CONC 34 G/DL (32-36); MEAN CORPUSCULAR VOLUME 82 FL (80-99); MEAN PLATELET VOLUME 9.6 FL (7.4-10.4); MONOCYTES # (AUTO) 0.5 X 10^3 (0.0-1.0); MONOCYTES % (AUTO) 10 % (0-12); NEUTROPHILS # (AUTO) 2.9 X 10^3 (1.8-7.8); NEUTROPHILS % (AUTO) 61 % (42-75); PLATELET COUNT 187 10^3/uL (130-400); RED BLOOD COUNT 4.29 10^6/uL (4.35-5.85); RED CELL DISTRIBUTION WIDTH 13.5 % (10.0-14.5); WHITE BLOOD COUNT 4.7 10^3/uL (4.3-11.0)
[2018-03-23 06:30] LABS: BUN/CREATININE RATIO 15; CALCIUM 8.9 MG/DL (8.5-10.1); CARBON DIOXIDE 20 MMOL/L (21-32); CHLORIDE 104 MMOL/L (98-107); CREATININE SERUM 0.96 MG/DL (0.60-1.30); GFR ESTIMATED > 60; GLUCOSE 188 MG/DL (70-105); POTASSIUM 4.6 MMOL/L (3.6-5.0); SODIUM 135 MMOL/L (135-145)
[2018-03-23] MEDS: inSUlin ASPART (NovoLOG) 1 UNIT/0.01 ML (CHARGE PER UNIT) SC SCH ×2 (06:35→11:06)
[2018-03-23 08:00] VITALS: BP 164/84
[2018-03-23] MEDS: ASPIRIN E.C. 81 MG (ECOTRIN) TAB PO SCH (08:41)
--- NOTE | 2018-03-23 08:45 | Progress Note (SOAP) ---
Subjective Subjective/Events-last exam Patient is now on fourth medical. He does report that he is not having the chest pain that he was when he first presented. He does point to his left lower rib midaxillary region with tenderness. He has no shortness of breath. Review of Systems Date Seen by Provider: Mar 23, 2018 Time Seen by Provider: 06:30 Objective Exam Last Set of Vital Signs Vital Signs Date Time Temp Pulse Resp B/P (MAP) Pulse Ox O2 Delivery O2 Flow Rate FiO2 03/23/18 07:00 70 03/23/18 04:00 97.8 18 124/73 (90) 95 Room Air Capillary Refill : Less Than 3 Seconds I&O Intake and Output 03/23/18 00:00 Intake Total 1025 ml Output Total 350 ml Balance 675 ml Intake Oral 825 ml IV Total 200 ml Output Urine Total 350 ml # Voids 3 # Bowel Movements 1 Daily Weight Change No General: No Acute Distress Lungs: Clear to Auscultation Heart: Regular Rate Abdomen: Soft Other physical findings Patient is exquisitely tender to the left lower rib mid axillary line and this is reproducible pain Results/Procedures Lab Laboratory Tests 03/22/18 10:10: Troponin I < 0.30 03/22/18 11:38: Glucometer 175H 03/22/18 18:03: Glucometer 228H 03/22/18 20:37: Glucometer 165H 03/23/18 05:30: White Blood Count 4.7, Red Blood Count 4.29L, Hemoglobin 12.0L, Hematocrit 35L, Mean Corpuscular Volume 82, Mean Corpuscular Hemoglobin 28, Mean Corpuscular Hemoglobin Concent 34, Red Cell Distribution Width 13.5, Platelet Count 187, Mean Platelet Volume 9.6, Neutrophils (%) (Auto) 61, Lymphocytes (%) (Auto) 26, Monocytes (%) (Auto) 10, Eosinophils (%) (Auto) 2, Basophils (%) (Auto) 0, Neutrophils # (Auto) 2.9, Lymphocytes # (Auto) 1.2, Monocytes # (Auto) 0.5, Eosinophils # (Auto) 0.1, Basophils # (Auto) 0.0, Sodium Level 135, Potassium Level 4.6, Chloride Level 104, Carbon Dioxide Level 20L, Anion Gap 11, Blood Urea Nitrogen 14, Creatinine 0.96, Estimat Glomerular Filtration Rate > 60, BUN/ Creatinine Ratio 15, Glucose Level 188H, Calcium Level 8.9 Radiology NAME: [facility] REC#: [id number] PT STATUS: ADM Eileen : 1960 PHYSICIAN: TY GILES DO ADMIT DATE: 03/22/18/ICU Draft Date of Exam:03/21/18 CHEST 1 VIEW, AP/PA ONLY EXAMINATION: CHEST 1 VIEW, AP/PA ONLY INDICATION: Stroke. COMPARISON: Chest radiograph 03/09/2017. FINDINGS: Normal heart size and pulmonary vascularity. No focal pulmonary opacity, pleural effusion or pneumothorax. Calcified aorta. No acute osseous findings. IMPRESSION: No acute cardiopulmonary findings. Dictated on workstation # [id number] Dict: 03/22/18622 Trans: 03/22/18627 [facility] [id number] Interpreted by: GABRIELLA WELLS MD Electronically signed by: NAME: [facility] REC#: [id number] PT STATUS: ADM Eileen : 1960 PHYSICIAN: TY GILES DO ADMIT DATE: 03/22/18/ICU Signed Date of Exam: 03/21/18 CT HEAD WO-R/O STROKE EXAM: CT HEAD WO-R/O STROKE INDICATION: Stroke. COMPARISON: None. FINDINGS: No CT evidence for territorial infarction. Moderate generalized cerebral and cerebellar parenchymal volume loss. Intracranial vascular calcifications. No intracranial hemorrhage, mass effect, hydrocephalus or extra-axial fluid collections. Osseous structures are intact. Mild mucosal thickening in the right maxillary sinus. The mastoids are clear. IMPRESSION: No acute intracranial CT findings. Dictated by: Dictated on workstation # [id number] Dict: 03/22/18635 Trans: 03/22/18929 Interpreted by: GABRIELLA WELLS MD Electronically signed by: GABRIELLA WELLS MD 03/22/18929 Assessment/Plan Assessment/Plan Assessment & Plan 1. Chest painand he does have cardiac risk factors -patient to be admitted to cardiac stepdown for further cardiac monitoring. -He will also have cardiology consultation due to the chest pain. -If cardiac workup negative he may need further GI workup and he has had endoscopies in the past for both lower and upper 03/23: -Patient has been ambulatory without exertional chest pain. Will await cardiology input. 2. Insulin-dependent diabetes mellitus -he will be continued on his insulin an on sliding scale as needed. 03/23: Patient was informed that his glucose is still running a little bit on the high side. I stressed to him today that this will need to be under better control. 3. Methamphetamine use by drug screen -This will need to be addressed and corrected 4. Rib strainleft side without trauma -Reassurance was given. Clinical Quality Measures DVT/VTE Risk/Contraindication: Risk Factor Score Per Nursin RFS Level Per Nursing on Admit: 3=High YULY PERALTA MD Mar 23, 2018 08:45
[2018-03-23] MEDS ORDERED: VALSARTAN 80 MG (DIOVAN) TAB PO SCH (09:00)
[2018-03-23 12:00] VITALS: BP 122/84
--- NOTE | 2018-03-23 13:38 | Progress Note-Cardiology ---
Cardiology SOAP Progress Note Subjective: No cp or palp or syncope or shortness of breath He wishes to go home Objective: I&O/Vital Signs 03/23/18 03/23/18 03/23/18 03/23/18 04:00 07:00 08:00 12:33 Temp 97.8 98.0 Pulse 68 70 68 69 Resp 18 16 B/P (MAP) 124/73 (90) 164/84 (110) Pulse Ox 95 98 O2 Delivery Room Air Room Air 03/23/18 00:00 Intake Total 625 ml Output Total 0 ml Balance 625 ml Weight (Pounds): 237 Weight (Ounces): 7.0 Weight (Calculated Kilograms): [id number] Constitutional: AAO x 3, well-developed, other Respiratory: No accessory muscle use; lungs clear to percussion, lungs clear to auscultation Cardiovascular: regular rate-rhythm, S1 and S2, systolic murmur (faint SASHA at card base) Gastrointestional: No tender; soft, audible bowel sounds Extremities: No clubbing, No cyanosis, No significant edema Neurologic/Psychiatric: grossly intact, power is 5/5 both on sides Skin: No rash on exposed areas, No ulcerations on exposed areas Results/Procedures: Labs Laboratory Tests 03/22/18 18:03: Glucometer 228H 03/22/18 20:37: Glucometer 165H 03/23/18 05:30: White Blood Count 4.7, Red Blood Count 4.29L, Hemoglobin 12.0L, Hematocrit 35L, Mean Corpuscular Volume 82, Mean Corpuscular Hemoglobin 28, Mean Corpuscular Hemoglobin Concent 34, Red Cell Distribution Width 13.5, Platelet Count 187, Mean Platelet Volume 9.6, Neutrophils (%) (Auto) 61, Lymphocytes (%) (Auto) 26, Monocytes (%) (Auto) 10, Eosinophils (%) (Auto) 2, Basophils (%) (Auto) 0, Neutrophils # (Auto) 2.9, Lymphocytes # (Auto) 1.2, Monocytes # (Auto) 0.5, Eosinophils # (Auto) 0.1, Basophils # (Auto) 0.0, Sodium Level 135, Potassium Level 4.6, Chloride Level 104, Carbon Dioxide Level 20L, Anion Gap 11, Blood Urea Nitrogen 14, Creatinine 0.96, Estimat Glomerular Filtration Rate > 60, BUN/ Creatinine Ratio 15, Glucose Level 188H, Calcium Level 8.9 03/23/18 10:44: Glucometer 270H Microbiology 03/22/18 MRSA Screen - Final, Complete A/P: Assessment: Chest discomfort w/o any evidence of ACS H/o methamphetamine use and evidence of such use shortly prior to this admission Presentation with GI bleed in February 2017 requiring blood transfusions. Endoscopy by Dr Hansen in March 2017 showed gastritis, HH and colon polyps Obesity with BMI approx 35 Chronic tobacco use DM II Hypertension CAD, as indicated by LAD calcification on CT of 02/02/16 Mild aortic root dilatation (4.3 cm arnie) on CT of January 2016 Hep C Plan: * I had a discussion with him regarding his CV issues and his risk factors * Advised adding low dose aspirin to regimen * Advised to refrain from tobacco and street drug use * Advised outpatient f/u * Advised to return to ER in case of recurrent symptoms or new symptoms REY LEMUS MD FACP FAC CCDS Mar 23, 2018 13:38
[2018-03-23] MEDS ORDERED: ASPI-983 PO (14:17)
[2018-03-23 14:50] VITALS: BP 122/84
--- OUTSIDE RECORDS SUMMARY | 2018-03-24 15:52 | XMS REPORT | Continuity of Care Document ---
Author Author [facility] Address Unknown Phone Unavailable Allergies Active Description Code Type Severity Reaction Onset Reported/Identified Relationship to Patient Clinical Status Yes NKA Drug N/A N/A Yes Topamax 50 mg tablet Drug Allergy 11/14/2012 Yes Topamax 50 mg tablet Drug Allergy N/A N/A 11/14/2012 Yes Celebrex 200 mg capsule Drug Allergy N/A N/A 07/07/2013 Yes No Known Drug Allergies [id number] Drug Allergy Unknown N/A 04/10/2017 Medications There is no data. Problems Date Dx Coded Attending Type Code [...] Education - Alcohol 09/15/2012 GABBI DDS, DOUGLAS M 250.02 DIABETES MELLITUS TYPE 2 - UNCOMPLICATED, UNCONTROLLED 09/15/2012 GABBI DDS, DOUGLAS M 401.1 ESSENTIAL HYPERTENSION BENIGN 09/15/2012 GABBI DDS, DOUGLAS M V65.42 Patient Education - Alcohol 09/15/2012 MORIN [...] 09/15/2012 MORIN DO NIMISHA K 250.02 DIABETES II UNCONTROLLED (UNCOMPLICATED) 09/15/2012 MORIN DO, NIMISHA K 401.1 BENIGN ESSENTIAL HYPERTENSION 09/15/2012 MORIN DO, NIMISHA K V65.42 COUNSELING - SMOKING CESSATION 09/16/2012 MIKEL LEI NIMISHA K 790.6 ABNORMAL LFT (LIVER FUNCTION TEST) 09/16/2012 790.6 ABNORMAL LFT ( LIVER FUNCTION TEST) 09/16/2012 MIKEL LEI NIMISHA K 790.6 ABNORMAL LFT (LIVER FUNCTION TEST) 09/16/2012 790.6 ABNORMAL LFT ( LIVER FUNCTION TEST) 09/16/2012 790.6 ABNORMAL LFT ( LIVER FUNCTION TEST) 09/16/2012 790.6 ABNORMAL LFT ( LIVER FUNCTION TEST) 09/16/2012 DOUGLAS SEO DDS 790.6 [...] V70.5 HEALTH EXAMINATION OF DEFINED SUBPOPULATIONS 11/14/2012 MOIRN DO, NIMISHA K V70.5 HEALTH EXAMINATION OF [...] 726.32 LATERAL EPICONDYLITIS [place] 02/25/2013 GABBI DDS, DOUGLAS Barrett 726.32 LATERAL EPICONDYLITIS [place] 02/25/2013 MORIN DO, NIMISHA K 726.32 LATERAL EPICONDYLITIS [place] 02/25/2013 OMRIN DO, NIMISHA K 726.32 LATERAL EPICONDYLITIS ELBOW [...] DO K 791.0 MICROALBUMINURIA 05/30/2015 LUCINA GOEL LEGAL ADVISOR Ot 250.00 DIAB CHRISTIANE WO COMPL, TYPE II OR UNSPEC TY 05/30/2015 LUCINA GOEL LEGAL ADVISOR Ot 305.1 TOBACCO USE DISORDER 05/30/2015 LUCINA GOEL LEGAL ADVISOR Ot 466.0 ACUTE BRONCHITIS 05/30/2015 LUCINA GOEL LEGAL ADVISOR Ot 599.0 URIN TRACT INFECTION NOS 05/30/2015 LUCINA GOEL LEGAL ADVISOR Ot 780.79 OTH MALAISE FATIGUE 05/30/2015 LUCINA GOEL APRN Ot V58.67 LONG-TERM (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 OF INSULIN [...] 02/02/2016 ODILIA HOSKINS MD Ot Z79.899 OTHER [facility]DC (CURRENT) DRUG THERAPY 02/03/2016 ODILIA HOSKINS MD, Ot D50.9 IRON DEFICIENCY ANEMIA, UNSPECIFIED 02/03/2016 ODILIA HOSKINS MD Ot D64.9 ANEMIA, UNSPECIFIED 02/03/2016 ODILIA HOSKINS MD Ot R06.02 SHORTNESS OF BREATH 03/22/2016 ANABELL ORELLANA DO Ot D64.9 ANEMIA, UNSPECIFIED 03/22/2016 ANABELL ORELLANA DO Ot Z01.818 ENCOUNTER FOR OTHER PREPROCEDURAL EXAMIN 04/09/2016 ORELLANA DOANABELL D Ot D64.9 ANEMIA, UNSPECIFIED 04/09/2016 ORELLANA DO ANABELL D Ot Z01.818 ENCOUNTER FOR OTHER PREPROCEDURAL EXAMIN 04/09/2016 ORELLANA DOBETTINATT D Ot D64.9 ANEMIA, UNSPECIFIED 04/09/2016 ORELLANA DO ANABELL D Ot Z01.818 ENCOUNTER FOR OTHER PREPROCEDURAL EXAMIN 04/10/2016 ORELLANA DOANABELL D Ot D64.9 ANEMIA, UNSPECIFIED 04/10/2016 ORELLANA DO ANABELL D Ot Z01.818 ENCOUNTER FOR OTHER PREPROCEDURAL EXAMIN 04/10/2016 ORELLANAANABELL PHILLIP DO D Ot D12.8 BENIGN NEOPLASM OF RECTUM 04/10/2016 ORELLANA ANABELL LEI D Ot D50.9 IRON DEFICIENCY ANEMIA, UNSPECIFIED 04/10/2016 ORELLANA DOANABELL D Ot K25.7 CHRONIC GASTRIC ULCER WITHOUT HEMORRHAGE 04/10/2016 ANABELL ORELLANA DO D Ot K29.70 GASTRITIS, UNSPECIFIED, WITHOUT BLEEDING 04/10/2016 ORELLANA DOANABELL D Ot K44.9 DIAPHRAGMATIC HERNIA WITHOUT OBSTRUCTION 04/13/2016 ANABELL ORELLANA DO D Ot D12.8 BENIGN NEOPLASM OF RECTUM 04/13/2016 ANABELL ORELLANA DO D Ot D50.9 IRON DEFICIENCY ANEMIA, UNSPECIFIED 04/13/2016 ORELLANA ANABELL LEI D Ot K25.7 CHRONIC GASTRIC ULCER WITHOUT HEMORRHAGE 04/13/2016 ANABELL ORELLANA DO D Ot K29.70 GASTRITIS, UNSPECIFIED, WITHOUT BLEEDING 04/13/2016 ANABELL ORELLANA DO Ot K44.9 DIAPHRAGMATIC HERNIA WITHOUT OBSTRUCTION 04/30/2016 ODILIA HOSKINS MD Ot B18.2 CHRONIC VIRAL HEPATITIS C 04/30/2016 ODILIA HOSKINS MD Ot D50.9 IRON DEFICIENCY ANEMIA, UNSPECIFIED 04/30/2016 GATO ROMERO, ODILIA Correa Ot E11.9 TYPE 2 DIABETES MELLITUS WITHOUT COMPLIC 04/30/2016 GATO ROMERO, ODILIA Correa Ot E66.9 OBESITY, UNSPECIFIED 04/30/2016 ODILIA HOSKINS MD Ot E78.5 HYPERLIPIDEMIA, UNSPECIFIED 04/30/2016 GATO ROMERO, ODILIA Correa Ot F10.99 ALCOHOL USE, UNSP WITH UNSPECIFIED ALCOH 04/30/2016 ODILIA HOSKINS MD Ot F17.210 NICOTINE DEPENDENCE, CIGARETTES, UNCOMPL 04/30/2016 ODILIA HOSKINS MD Ot I10 ESSENTIAL (PRIMARY) HYPERTENSION 04/30/2016 ODILIA HOSKINS MD Ot Z68.38 BODY MASS INDEX (BMI) 38.0-38.9, ADULT 04/30/2016 ODILIA HOSKINS MD Ot 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 05/08/2016 ODILIA HOSKINS MD [...] 05/08/2016 ODILIA HOSKINS MD Ot Z79.899 OTHER FDC (CURRENT) DRUG THERAPY 05/20/2016 CLIFFORD REESE MD Ot N39.0 URINARY TRACT INFECTION, SITE NOT SPECIF 05/20/2016 CLIFFORD REESE MD Ot N40.1 ENLARGED PROSTATE WITH LOWER URINARY TRA 05/20/2016 CLIFFORD REESE MD Ot R35.0 FREQUENCY OF MICTURITION 05/21/2016 CLIFFORD REESE MD Ot N39.0 URINARY TRACT INFECTION, SITE NOT SPECIF 05/21/2016 CLIFFORD REESE MD Ot N40.1 ENLARGED PROSTATE [...] 06/25/2016 ODILIA HOSKINS MD Ot 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 06/27/2016 ODILIA HOSKINS MD, Ot B18.2 CHRONIC VIRAL HEPATITIS C 06/27/2016 [...] I10 ESSENTIAL (PRIMARY) HYPERTENSION 06/27/2016 ODILIA HOSKINS MD, Ot Z68.38 BODY MASS INDEX (BMI) 38.0-38.9, ADULT 06/27/2016 ODILIA HOSKINS MD Ot 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 07/22/2016 SAVANA STONER MD, Ot E11.29 TYPE 2 DIABETES MELLITUS W OTH DIABETIC 07/22/2016 SAVANA STONER MD, Ot F17.210 NICOTINE DEPENDENCE, CIGARETTES, UNCOMPL 07/22/2016 SAVANA STONER MD, Ot N18.9 CHRONIC KIDNEY DISEASE, UNSPECIFIED 07/22/2016 SAVANA STONER MD Ot N43.3 HYDROCELE, UNSPECIFIED 07/22/2016 SAVANA STONER MD Ot N45.1 EPIDIDYMITIS 07/22/2016 SAVANA STONER MD Ot N50.89 OTHER SPECIFIED DISORDERS OF THE MALE GE 07/22/2016 SAVANA STONER MD Ot Z79.4 FDC (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 OF INSULIN 07/22/2016 SAVANA STONER MD Ot 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 07/23/2016 SAVANA STONER MD Ot E11.29 TYPE 2 DIABETES MELLITUS W OTH DIABETIC 07/23/2016 SAVANA STONER MD, Ot F17.210 NICOTINE DEPENDENCE, CIGARETTES, UNCOMPL 07/23/2016 SAVANA STONER MD Ot N18.9 CHRONIC KIDNEY DISEASE, UNSPECIFIED 07/23/2016 SAVANA STONER MD Ot N43.3 HYDROCELE, UNSPECIFIED 07/23/2016 SAVANA STONER MD Ot N45.1 EPIDIDYMITIS 07/23/2016 SAVANA STONER MD Ot N50.89 OTHER SPECIFIED DISORDERS OF THE MALE GE 07/23/2016 SAVANA STONER MD Ot Z79.4 [employer] 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 OF INSULIN 07/23/2016 SAVANA STONER MD Ot Z79.899 OTHER [facility]DC (CURRENT) DRUG THERAPY 07/24/2016 ODILIA HOSKINS MD [...] 07/24/2016 ODILIA HOSKINS MD Ot Z79.899 OTHER FDC (CURRENT) DRUG THERAPY 07/25/2016 ODILIA HOSKINS MD Ot B18.2 CHRONIC VIRAL HEPATITIS C 07/25/2016 ODILIA HOSKINS MD Ot D50.9 IRON DEFICIENCY ANEMIA, UNSPECIFIED 07/25/2016 [...] INDEX (BMI) 38.0-38.9, ADULT 07/25/2016 ODILIA HOSKINS MD Ot Z79.899 OTHER FDC (CURRENT) DRUG THERAPY 08/06/2016 ODILIA HOSKINS MD Ot B18.2 CHRONIC VIRAL HEPATITIS C 08/06/2016 [...] 08/06/2016 ODILIA HOSKINS MD Ot 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 08/06/2016 ODILIA HOSKINS MD [...] UNSP WITH UNSPECIFIED ALCOH 08/06/2016 ODILIA HOSKINS MD, Ot F17.210 NICOTINE DEPENDENCE, CIGARETTES, UNCOMPL 08/06/2016 ODILIA HOSKINS MD Ot I10 ESSENTIAL (PRIMARY) HYPERTENSION 08/06/2016 ODILIA HOSKINS MD, Ot Z68.38 BODY MASS INDEX (BMI) 38.0-38.9, ADULT 08/06/2016 ODILIA HOSKINS MD, Ot 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 08/06/2016 ODILIA HOSKINS MD, [...] HOSKINS MD, Ot E78.5 HYPERLIPIDEMIA, UNSPECIFIED 10/22/2016 GATO MD, ODILIA K Ot F10.99 ALCOHOL USE, UNSP WITH UNSPECIFIED ALCOH 10/22/2016 ODILIA HOSKINS MD, Ot F17.210 NICOTINE DEPENDENCE, CIGARETTES, UNCOMPL 10/22/2016 ODILIA HOSKINS MD Ot I10 ESSENTIAL (PRIMARY) HYPERTENSION 10/22/2016 ODILIA HOSKINS MD Ot Z68.38 BODY MASS INDEX (BMI) 38.0-38.9, ADULT 10/22/2016 ODILIA HOSKINS MD Ot Z79.899 OTHER FDC (CURRENT) DRUG THERAPY 02/19/2017 ALLAN ROMERO FACC, ALI FACP CCDS Ot E11.9 TYPE 2 DIABETES MELLITUS WITHOUT COMPLIC 02/19/2017 ALLAN ROMERO FACC, ALI FACP CCDS Ot I10 ESSENTIAL (PRIMARY) HYPERTENSION 02/19/2017 ALLAN ROMERO FACC, ALI FACP CCDS Ot R07.89 OTHER CHEST PAIN 02/19/2017 ALLAN ROMERO FACC, ALI FACP CCDS Ot Z53.09 PROC/TRTMT NOT CARRIED OUT BECAUSE OF CO 02/19/2017 ALLAN ROMERO FACC, ALI FACP CCDS Ot Z72.0 TOBACCO USE 02/19/2017 ALLAN ROMERO FACC, ALI FACP CCDS Ot Z79.4 [employer] 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 OF INSULIN 02/19/2017 ALLAN ROMERO FACC, ALI FACP CCDS Ot 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 02/19/2017 ODILIA HOSKINS MD Ot D50.9 IRON DEFICIENCY ANEMIA, UNSPECIFIED 02/19/2017 ODILIA HOSKINS MD Ot D64.9 ANEMIA, UNSPECIFIED 02/19/2017 ODILIA HOSKINS MD Ot R06.02 SHORTNESS OF BREATH 02/19/2017 SHARMIN BRAY MD, Ot B18.2 CHRONIC VIRAL HEPATITIS C 02/19/2017 SHARMIN BRAY MD, Ot D50.9 IRON DEFICIENCY ANEMIA, UNSPECIFIED 02/19/2017 SHARMIN BRAY MD, Ot E11.9 TYPE 2 DIABETES MELLITUS WITHOUT COMPLIC 02/19/2017 SHARMIN BRAY MD, Ot E66.9 OBESITY, UNSPECIFIED 02/19/2017 SHARMIN BRAY MD, Ot E78.5 HYPERLIPIDEMIA, UNSPECIFIED 02/19/2017 SHARMIN BRAY MD, Ot F10.99 ALCOHOL USE, UNSP WITH UNSPECIFIED ALCOH 02/19/2017 XUN MD, WILSON-TC Ot F17.210 NICOTINE DEPENDENCE, CIGARETTES, UNCOMPL 02/19/2017 SHARMIN BRAY MD Ot I10 ESSENTIAL (PRIMARY) HYPERTENSION 02/19/2017 SHARMIN BRAY MD Ot Z68.38 BODY MASS INDEX (BMI) 38.0-38.9, ADULT 02/19/2017 SHARMIN BRAY MD Ot 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 02/20/2017 ODILIA HOSKINS MD [...] 02/20/2017 ODILIA HOSKINS MD Ot Z79.899 OTHER [facility]DC (CURRENT) DRUG THERAPY 02/20/2017 SAVANA STONER MD, Ot E11.29 TYPE 2 DIABETES MELLITUS W OTH DIABETIC 02/20/2017 SAVANA STONER MD, Ot F17.210 NICOTINE DEPENDENCE, CIGARETTES, UNCOMPL 02/20/2017 SAVANA STONER MD Ot N18.9 CHRONIC KIDNEY DISEASE, UNSPECIFIED 02/20/2017 SAVANA STONER MD Ot N43.3 HYDROCELE, UNSPECIFIED 02/20/2017 SAVANA STONER MD, Ot N45.1 EPIDIDYMITIS 02/20/2017 SAVANA STONER MD Ot N50.89 OTHER SPECIFIED DISORDERS OF THE MALE GE 02/20/2017 SAVANA STONER MD Ot Z79.4 [employer] 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 OF INSULIN 02/20/2017 SAVANA STONER MD, Ot 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 02/21/2017 TOM ROMERO, CHITO Gavin Ot D64.9 ANEMIA, UNSPECIFIED 02/21/2017 GATO ROMERO, ODILIA Correa Ot D50.9 IRON DEFICIENCY ANEMIA, UNSPECIFIED 02/21/2017 GATO ROMERO, ODILIA Correa Ot D64.9 ANEMIA, UNSPECIFIED 02/21/2017 GATO ROMERO, ODILIA Correa Ot R06.02 SHORTNESS OF BREATH 02/21/2017 SHARMIN BRAY MD Ot B18.2 CHRONIC VIRAL HEPATITIS C 02/21/2017 SHARMIN BRAY MD, Ot D50.9 IRON DEFICIENCY ANEMIA, UNSPECIFIED 02/21/2017 SHARMIN BRAY MD Ot E11.9 TYPE 2 DIABETES MELLITUS WITHOUT COMPLIC 02/21/2017 SHARMIN BRAY MD Ot E66.9 OBESITY, UNSPECIFIED 02/21/2017 KATARINA ROMERO, SHARMIN Ot E78.5 HYPERLIPIDEMIA, UNSPECIFIED 02/21/2017 SHARMIN BRAY MD Ot F10.99 ALCOHOL USE, UNSP WITH UNSPECIFIED ALCOH 02/21/2017 SHARMIN BRAY MD Ot F17.210 NICOTINE DEPENDENCE, CIGARETTES, UNCOMPL 02/21/2017 SHARMIN BRAY MD Ot I10 ESSENTIAL (PRIMARY) HYPERTENSION 02/21/2017 SHARMIN BRAY MD Ot Z68.38 BODY MASS INDEX (BMI) 38.0-38.9, ADULT 02/21/2017 SHARMIN BRAY MD Ot Z79.899 OTHER [facility] (CURRENT) DRUG THERAPY 02/21/2017 CHITO SANTOS MD Ot D64.9 ANEMIA, UNSPECIFIED 02/28/2017 ALLAN ROMERO FACC, ALI FACP CCDS Ot E11.9 TYPE 2 DIABETES MELLITUS WITHOUT COMPLIC 02/28/2017 ALLAN ROMERO FACC, ALI FACP CCDS Ot I10 ESSENTIAL (PRIMARY) HYPERTENSION 02/28/2017 ALLAN ROMERO FACC, ALI FACP CCDS Ot R07.89 OTHER CHEST PAIN 02/28/2017 ALLAN ROMERO FACC, ALI FACP CCDS Ot Z53.09 PROC/TRTMT NOT CARRIED OUT BECAUSE OF CO 02/28/2017 ALLAN ROMERO FACC, ALI FACP CCDS Ot Z72.0 TOBACCO USE 02/28/2017 ALLAN ROMERO FACC, ALI FACP CCDS Ot Z79.4 [employer] 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 OF INSULIN 02/28/2017 ALLAN ROMERO FACC, ALI FACP [facility] Ot Z79.899 OTHER [facility]DC (CURRENT) DRUG THERAPY 03/08/2017 SHARMIN BRAY MD, Ot B18.2 CHRONIC VIRAL HEPATITIS C 03/08/2017 SHARMIN BRAY MD, Ot D50.9 IRON DEFICIENCY ANEMIA, UNSPECIFIED 03/08/2017 SHARMIN BRAY MD Ot E11.9 TYPE 2 DIABETES MELLITUS WITHOUT COMPLIC 03/08/2017 SHARMIN BRAY MD, Ot E66.9 OBESITY, UNSPECIFIED 03/08/2017 SHARMIN BRAY MD, Ot E78.5 HYPERLIPIDEMIA, UNSPECIFIED 03/08/2017 SHARMIN BRAY MD Ot F10.99 ALCOHOL USE, UNSP WITH UNSPECIFIED ALCOH 03/08/2017 SHARMIN BRAY MD, Ot F17.210 NICOTINE DEPENDENCE, CIGARETTES, UNCOMPL 03/08/2017 SHARMIN BRAY MD, Ot I10 ESSENTIAL (PRIMARY) HYPERTENSION 03/08/2017 SHARMIN BRAY MD Ot Z68.38 BODY MASS INDEX (BMI) 38.0-38.9, ADULT 03/08/2017 SHARMIN BRAY MD Ot 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 03/08/2017 CHITO SANTOS MD Ot D64.9 ANEMIA, UNSPECIFIED 03/09/2017 JILLIAN LOVE MD, Ot B18.2 CHRONIC VIRAL HEPATITIS C 03/09/2017 [...] MD Ot I25.10 ATHSCL HEART DISEASE OF [place] CORONARY 03/09/2017 JILLIAN LOVE MD Ot K74.60 UNSPECIFIED CIRRHOSIS OF LIVER 03/09/2017 JILLIAN LOVE MD, Ot R07.89 OTHER CHEST PAIN 03/09/2017 JILLIAN LOVE MD, Ot Z68.37 BODY MASS INDEX (BMI) 37.0-37.9, ADULT 03/09/2017 JILLIAN LOVE MD, Ot Z79.4 [employer] 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 OF INSULIN 03/09/2017 JILLIAN LOVE MD, Ot Z79.84 FDC (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 OF ORAL HYPOGLYC 03/11/2017 CHAN DO, TY K Ot B19.20 UNSPECIFIED VIRAL HEPATITIS C WITHOUT HE 03/11/2017 CHAN DO TY K Ot E11.9 TYPE 2 DIABETES MELLITUS WITHOUT COMPLIC 03/11/2017 CHAN DO TY K Ot I10 ESSENTIAL (PRIMARY) HYPERTENSION 03/11/2017 CHAN DO TY K Ot I25.10 ATHSCL HEART DISEASE OF [place] CORONARY 03/11/2017 CHAN DO TY K Ot I25.2 OLD MYOCARDIAL INFARCTION 03/11/2017 CHAN DO TY K Ot K52.9 NONINFECTIVE GASTROENTERITIS AND COLITIS 03/11/2017 CHAN DO TY K Ot K57.30 DVRTCLOS OF LG INT W/O PERFORATION OR AB 03/11/2017 CHAN DO TY K Ot N32.9 BLADDER DISORDER, UNSPECIFIED 03/11/2017 CHAN DO TY K Ot R19.7 DIARRHEA, UNSPECIFIED 03/11/2017 CHAN DO TY K Ot Z79.4 [employer] 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 OF INSULIN 03/11/2017 CHAN LEI TY K Ot Z79.84 [employer] 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 OF ORAL HYPOGLYC 03/11/2017 CHAN DO TY K Ot 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 03/12/2017 SHARMIN BRAY MD, Ot B18.2 CHRONIC VIRAL HEPATITIS C 03/12/2017 SHARMIN BRAY MD, Ot D50.9 IRON DEFICIENCY ANEMIA, UNSPECIFIED 03/12/2017 SHARMIN BRAY MD, Ot E11.9 TYPE 2 DIABETES MELLITUS WITHOUT COMPLIC 03/12/2017 SHARMIN BRAY MD, Ot E66.9 OBESITY, UNSPECIFIED 03/12/2017 SHARMIN BRAY MD, Ot E78.5 HYPERLIPIDEMIA, UNSPECIFIED 03/12/2017 SHARMIN BRAY MD Ot F10.99 ALCOHOL USE, UNSP WITH UNSPECIFIED ALCOH 03/12/2017 SHARMIN BRAY MD Ot F17.210 NICOTINE DEPENDENCE, CIGARETTES, UNCOMPL 03/12/2017 SHARMIN BRAY MD Ot I10 ESSENTIAL (PRIMARY) HYPERTENSION 03/12/2017 SHARMIN BRAY MD Ot Z68.38 BODY MASS INDEX (BMI) 38.0-38.9, ADULT 03/12/2017 SHARMIN BRAY MD, Ot 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 03/12/2017 TOM ROMERO, CHITO Gavin Ot D64.9 ANEMIA, UNSPECIFIED 03/12/2017 GATO ROMERO, ODILIA Correa Ot D50.9 IRON DEFICIENCY ANEMIA, UNSPECIFIED 03/12/2017 GATO ROMERO, ODILIA Correa Ot D64.9 ANEMIA, UNSPECIFIED 03/12/2017 GATO ROMERO, ODILIA Correa Ot R06.02 SHORTNESS OF BREATH 03/12/2017 SHARMIN BRAY MD Ot B18.2 CHRONIC VIRAL HEPATITIS C 03/12/2017 SHARMIN BRAY MD, Ot D50.9 IRON DEFICIENCY ANEMIA, UNSPECIFIED 03/12/2017 SHARMIN BRAY MD Ot E11.9 TYPE 2 DIABETES MELLITUS WITHOUT COMPLIC 03/12/2017 SHARMIN BRAY MD Ot E66.9 OBESITY, UNSPECIFIED 03/12/2017 KATARINA ROMERO, SHARMIN Ot E78.5 HYPERLIPIDEMIA, UNSPECIFIED 03/12/2017 SHARMIN BRAY MD Ot F10.99 ALCOHOL USE, UNSP WITH UNSPECIFIED ALCOH 03/12/2017 SHARMIN BRAY MD Ot F17.210 NICOTINE DEPENDENCE, CIGARETTES, UNCOMPL 03/12/2017 SHARMIN BRAY MD Ot I10 ESSENTIAL (PRIMARY) HYPERTENSION 03/12/2017 SHARMIN BRAY MD, Ot Z68.38 BODY MASS INDEX (BMI) 38.0-38.9, ADULT 03/12/2017 SHARMIN BRAY MD, Ot 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 03/12/2017 TOM ROMERO, CHITO Gavin Ot D64.9 ANEMIA, UNSPECIFIED 03/21/2017 TOM ROMERO, CHITO Gavin Ot D64.9 ANEMIA, UNSPECIFIED 03/22/2017 ALLAN ROMERO FACC, ALI FACP CCDS Ot E11.9 TYPE 2 DIABETES MELLITUS WITHOUT COMPLIC 03/22/2017 ALLAN ROMERO [facility], ALI FACP CCDS Ot I10 ESSENTIAL (PRIMARY) HYPERTENSION 03/22/2017 ALLAN ROMERO [facility], REY FACP CCDS Ot R07.89 OTHER CHEST PAIN 03/22/2017 ALLAN ROMERO [facility], ALI FACP CCDS Ot Z53.09 PROC/TRTMT NOT CARRIED OUT BECAUSE OF CO 03/22/2017 ALLAN ROMERO [facility], ALI FACP CCDS Ot Z72.0 TOBACCO USE 03/22/2017 ALLAN ROMERO [facility], ALI FACP CCDS Ot Z79.4 FDC (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 OF INSULIN 03/22/2017 ALLAN ROMERO [facility], ALI [facility] CCDS Ot 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 04/04/2017 GATO ROMERO, ODILIA Correa Ot D50.9 IRON DEFICIENCY ANEMIA, UNSPECIFIED 04/04/2017 GTAO ROMERO, ODILIA Correa Ot D64.9 ANEMIA, UNSPECIFIED 04/04/2017 GATO ROMERO, ODILIA Corera Ot R06.02 SHORTNESS OF BREATH 04/10/2017 ODILIA HOSKINS MD Ot D50.9 IRON DEFICIENCY ANEMIA, UNSPECIFIED 04/10/2017 ODILIA HOSKINS MD Ot D64.9 ANEMIA, UNSPECIFIED 04/10/2017 ODILIA HOSKINS MD Ot R06.02 SHORTNESS OF BREATH 04/10/2017 SHARMIN BRAY MD Ot B18.2 CHRONIC VIRAL HEPATITIS C 04/10/2017 SHARMIN BRAY MD, Ot D50.9 IRON DEFICIENCY ANEMIA, UNSPECIFIED 04/10/2017 SHARMIN BRAY MD Ot E11.9 TYPE 2 DIABETES MELLITUS WITHOUT COMPLIC 04/10/2017 SHARMIN BRAY MD Ot E66.9 OBESITY, UNSPECIFIED 04/10/2017 SHARMIN BRAY MD Ot E78.5 HYPERLIPIDEMIA, UNSPECIFIED 04/10/2017 SHARMIN BRAY MD Ot F10.99 ALCOHOL USE, UNSP WITH UNSPECIFIED ALCOH 04/10/2017 SHARMIN BRAY MD Ot F17.210 NICOTINE DEPENDENCE, CIGARETTES, UNCOMPL 04/10/2017 SHARMIN BRAY MD Ot I10 ESSENTIAL (PRIMARY) HYPERTENSION 04/10/2017 SHARMIN BRAY MD, Ot Z68.38 BODY MASS INDEX (BMI) 38.0-38.9, ADULT 04/10/2017 SHARMIN BRAY MD, Ot Z79.899 OTHER [facility] (CURRENT) DRUG THERAPY 04/10/2017 CHITO SANTOS MD Ot D64.9 ANEMIA, UNSPECIFIED 04/10/2017 SHARMIN BRAY MD Ot B18.2 CHRONIC VIRAL HEPATITIS C 04/10/2017 SHARMIN BRAY MD Ot D50.9 IRON DEFICIENCY ANEMIA, UNSPECIFIED 04/10/2017 SHARMIN BRAY MD Ot E11.9 TYPE 2 DIABETES MELLITUS WITHOUT COMPLIC 04/10/2017 SHARMIN BRAY MD Ot E66.9 OBESITY, UNSPECIFIED 04/10/2017 SHARMIN BRAY MD, Ot E78.5 HYPERLIPIDEMIA, UNSPECIFIED 04/10/2017 SHARMIN BRAY MD, Ot F10.99 ALCOHOL USE, UNSP WITH UNSPECIFIED ALCOH 04/10/2017 SHARMIN BRAY MD, Ot F17.210 NICOTINE DEPENDENCE, CIGARETTES, UNCOMPL 04/10/2017 SHARMIN BRAY MD, Ot I10 ESSENTIAL (PRIMARY) HYPERTENSION 04/10/2017 SHARMIN BRAY MD Ot Z68.38 BODY MASS INDEX (BMI) 38.0-38.9, ADULT 04/10/2017 SHARMIN BRAY MD, Ot 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 04/10/2017 SHARMIN BRAY MD, Ot B18.2 CHRONIC VIRAL HEPATITIS C 04/10/2017 SHARMIN BRAY MD, Ot D50.9 IRON DEFICIENCY ANEMIA, UNSPECIFIED 04/10/2017 SHARMIN BRAY MD, Ot E11.9 TYPE 2 DIABETES MELLITUS WITHOUT COMPLIC 04/10/2017 SHARMIN BRAY MD, Ot E66.9 OBESITY, UNSPECIFIED 04/10/2017 SHARMIN BRAY MD, Ot E78.5 HYPERLIPIDEMIA, UNSPECIFIED 04/10/2017 SHARMIN BRAY MD, Ot F10.99 ALCOHOL USE, UNSP WITH UNSPECIFIED ALCOH 04/10/2017 SHARMIN BRAY MD, Ot F17.210 NICOTINE DEPENDENCE, CIGARETTES, UNCOMPL 04/10/2017 SHARMIN BRAY MD Ot I10 ESSENTIAL (PRIMARY) HYPERTENSION 04/10/2017 SHARMIN BRAY MD, Ot Z68.38 BODY MASS INDEX (BMI) 38.0-38.9, ADULT 04/10/2017 SHARMIN BRAY MD, Ot 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 04/10/2017 ORELLANAANABELL PHILLIP DO Ot D50.9 IRON DEFICIENCY ANEMIA, UNSPECIFIED 04/10/2017 ORELLANA DOANABELL Ot Z01.818 ENCOUNTER FOR OTHER PREPROCEDURAL EXAMIN 04/11/2017 ORELLANA DOBETTINATT D Ot D50.9 IRON DEFICIENCY ANEMIA, UNSPECIFIED 04/11/2017 ORELLANA DO, ANABELL D Ot Z01.818 ENCOUNTER FOR OTHER PREPROCEDURAL EXAMIN 04/11/2017 SHARMIN BRAY MD, Ot B18.2 CHRONIC VIRAL HEPATITIS C 04/11/2017 SHARMIN BRAY MD, Ot D50.9 IRON DEFICIENCY ANEMIA, UNSPECIFIED 04/11/2017 SHARMIN BRAY MD Ot E11.9 TYPE 2 DIABETES MELLITUS WITHOUT COMPLIC 04/11/2017 SHARMIN BRAY MD Ot E66.9 OBESITY, UNSPECIFIED 04/11/2017 SHARMIN BRAY MD Ot E78.5 HYPERLIPIDEMIA, UNSPECIFIED 04/11/2017 SHARMIN BRAY MD Ot F10.99 ALCOHOL USE, UNSP WITH UNSPECIFIED ALCOH 04/11/2017 SHARMIN BRAY MD Ot F17.210 NICOTINE DEPENDENCE, CIGARETTES, UNCOMPL 04/11/2017 SHARMIN BRAY MD Ot I10 ESSENTIAL (PRIMARY) HYPERTENSION 04/11/2017 SHARMIN BRAY MD Ot Z68.38 BODY MASS INDEX (BMI) 38.0-38.9, ADULT 04/11/2017 SHARMIN BRAY MD, Ot 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 04/12/2017 SHARMIN BRAY MD, Ot B18.2 CHRONIC VIRAL HEPATITIS C 04/12/2017 SHARMIN BRAY MD Ot D50.9 IRON DEFICIENCY ANEMIA, UNSPECIFIED 04/12/2017 SHARMIN BRAY MD, Ot E11.9 TYPE 2 DIABETES MELLITUS WITHOUT COMPLIC 04/12/2017 SHARMIN BRAY MD Ot E66.9 OBESITY, UNSPECIFIED 04/12/2017 SHARMIN BRAY MD Ot E78.5 HYPERLIPIDEMIA, UNSPECIFIED 04/12/2017 SHARMIN BRAY MD Ot F10.99 ALCOHOL USE, UNSP WITH UNSPECIFIED ALCOH 04/12/2017 SHARMIN BRAY MD Ot F17.210 NICOTINE DEPENDENCE, CIGARETTES, UNCOMPL 04/12/2017 SHARMIN BRAY MD Ot I10 ESSENTIAL (PRIMARY) HYPERTENSION 04/12/2017 SHARMIN BRAY MD Ot Z68.38 BODY MASS INDEX (BMI) 38.0-38.9, ADULT 04/12/2017 SHARMIN BRAY MD Ot 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 04/12/2017 SHARMIN BRAY MD Ot B18.2 CHRONIC VIRAL HEPATITIS C 04/12/2017 SHARMIN BRAY MD, Ot D50.9 IRON DEFICIENCY ANEMIA, UNSPECIFIED 04/12/2017 SHARMIN BRAY MD Ot E11.9 TYPE 2 DIABETES MELLITUS WITHOUT COMPLIC 04/12/2017 SHARMIN BRAY MD Ot E66.9 OBESITY, UNSPECIFIED 04/12/2017 SHARMIN BRAY MD Ot E78.5 HYPERLIPIDEMIA, UNSPECIFIED 04/12/2017 SHARMIN BRAY MD Ot F10.99 ALCOHOL USE, UNSP WITH UNSPECIFIED ALCOH 04/12/2017 SHARMIN BRAY MD, Ot F17.210 NICOTINE DEPENDENCE, CIGARETTES, UNCOMPL 04/12/2017 SHARMIN BRAY MD Ot I10 ESSENTIAL (PRIMARY) HYPERTENSION 04/12/2017 SHARMIN BRAY MD, Ot Z68.38 BODY MASS INDEX (BMI) 38.0-38.9, ADULT 04/12/2017 SHARMIN BRAY MD, Ot Z79.899 OTHER [facility] (CURRENT) DRUG THERAPY 04/12/2017 ANABELL ORELLANA DO Ot D12.5 BENIGN NEOPLASM OF SIGMOID COLON 04/12/2017 ANABELL ORELLANA DO Ot D50.9 IRON DEFICIENCY ANEMIA, UNSPECIFIED 04/12/2017 ANABELL ORELLANA DO Ot E11.40 TYPE 2 DIABETES MELLITUS WITH DIABETIC N 04/12/2017 ANABELL ORELLANA DO Ot E78.5 HYPERLIPIDEMIA, UNSPECIFIED 04/12/2017 ANABELL ORELLANA DO Ot F17.210 NICOTINE DEPENDENCE, CIGARETTES, UNCOMPL 04/12/2017 ANABELL ORELLANA DO Ot G47.33 OBSTRUCTIVE SLEEP APNEA (ADULT) (PEDIATR 04/12/2017 ANABELL ORELLANA DO Ot I10 ESSENTIAL (PRIMARY) HYPERTENSION 04/12/2017 ANABELL ORELLANA DO Ot I25.10 ATHSCL HEART DISEASE OF [place] CORONARY 04/12/2017 ANABELL ORELLANA DO Ot K29.70 GASTRITIS, UNSPECIFIED, WITHOUT BLEEDING 04/12/2017 ANABELL ORELLANA DO Ot K44.9 DIAPHRAGMATIC HERNIA WITHOUT OBSTRUCTION 04/12/2017 ANABELL ORELLANA DO Ot K57.30 DVRTCLOS OF LG INT W/O PERFORATION OR AB 04/12/2017 ANABELL ORELLANA DO Ot K62.1 RECTAL POLYP 04/12/2017 ANABELL ORELLANA DO Ot K63.5 POLYP OF COLON 04/12/2017 ANABELL ORELLANA DO Ot K75.9 INFLAMMATORY LIVER DISEASE, UNSPECIFIED 04/12/2017 ANABELL ORELLANA DO Ot Z79.84 [facility] (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 OF ORAL HYPOGLYC 04/12/2017 ANABELL ORELLANA DO Ot 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 04/17/2017 ANABELL ORELLANA DO Ot D12.5 BENIGN NEOPLASM OF SIGMOID COLON 04/17/2017 ANABELL ORELLANA DO Ot D50.9 IRON DEFICIENCY ANEMIA, UNSPECIFIED 04/17/2017 ANABELL ORELLANA DO Ot E11.40 TYPE 2 DIABETES MELLITUS WITH DIABETIC N 04/17/2017 ANABELL ORELLANA DO Ot E78.5 HYPERLIPIDEMIA, UNSPECIFIED 04/17/2017 ANABELL ORELLANA DO Ot F17.210 NICOTINE DEPENDENCE, CIGARETTES, UNCOMPL 04/17/2017 ANABELL ORELLANA DO Ot G47.33 OBSTRUCTIVE SLEEP APNEA (ADULT) (PEDIATR 04/17/2017 ANABELL ORELLANA DO Ot I10 ESSENTIAL (PRIMARY) HYPERTENSION 04/17/2017 ANABELL ORELLANA DO Ot I25.10 ATHSCL HEART DISEASE OF [place] CORONARY 04/17/2017 ANABELL ORELLANA DO Ot K29.70 GASTRITIS, UNSPECIFIED, WITHOUT BLEEDING 04/17/2017 ANABELL ORELLANA DO Ot K44.9 DIAPHRAGMATIC HERNIA WITHOUT OBSTRUCTION 04/17/2017 ANABELL ORELLANA DO Ot K57.30 DVRTCLOS OF LG INT W/O PERFORATION OR AB 04/17/2017 ANABELL ORELLANA DO Ot K62.1 RECTAL POLYP 04/17/2017 ANABELL ORELLANA DO Ot K63.5 POLYP OF COLON 04/17/2017 ANABELL ORELLANA DO Ot K75.9 INFLAMMATORY LIVER DISEASE, UNSPECIFIED 04/17/2017 ANABELL ORELLANA DO Ot 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 [employer] 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 OF ORAL HYPOGLYC 04/17/2017 ANABELL ORELLANA DO Ot Z79.899 OTHER FDC (CURRENT) DRUG THERAPY 04/19/2017 ANABELL ORELLANA DO Ot D12.5 BENIGN NEOPLASM OF SIGMOID COLON 04/19/2017 ANABELL ORELLANA DO Ot D50.9 IRON DEFICIENCY ANEMIA, UNSPECIFIED 04/19/2017 ANABELL ORELLANA DO Ot E11.40 TYPE 2 DIABETES MELLITUS WITH DIABETIC N 04/19/2017 ANABELL ORELLANA DO Ot E78.5 HYPERLIPIDEMIA, UNSPECIFIED 04/19/2017 ANABELL ORELLANA DO Ot F17.210 NICOTINE DEPENDENCE, CIGARETTES, UNCOMPL 04/19/2017 ANABELL ORELLANA DO Ot G47.33 OBSTRUCTIVE SLEEP APNEA (ADULT) (PEDIATR 04/19/2017 ANABELL ORELLANA DO Ot I10 ESSENTIAL (PRIMARY) HYPERTENSION 04/19/2017 ANABELL ORELLANA DO Ot I25.10 ATHSCL HEART DISEASE OF [place] CORONARY 04/19/2017 ANABELL ORELLANA DO Ot K29.70 GASTRITIS, UNSPECIFIED, WITHOUT BLEEDING 04/19/2017 ANABELL ORELLANA DO Ot K44.9 DIAPHRAGMATIC HERNIA WITHOUT OBSTRUCTION 04/19/2017 ANABELL ORELLANA DO Ot K57.30 DVRTCLOS OF LG INT W/O PERFORATION OR AB 04/19/2017 ANABELL ORELLANA DO Ot K62.1 RECTAL POLYP 04/19/2017 ANABELL ORELLANA DO Ot K63.5 POLYP OF COLON 04/19/2017 ANABELL ORELLANA DO Ot K75.9 INFLAMMATORY LIVER DISEASE, UNSPECIFIED 04/19/2017 ANABELL ORELLANA DO Ot Z79.84 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[employer] 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 OF ORAL HYPOGLYC 04/19/2017 ANABELL ORELLANA DO Ot Z79.899 OTHER FDC (CURRENT) DRUG THERAPY 04/30/2017 KATARINA ROMERO, SHARMIN Ot B18.2 CHRONIC VIRAL HEPATITIS C 04/30/2017 SHARMIN BRAY MD Ot D50.9 IRON DEFICIENCY ANEMIA, UNSPECIFIED 04/30/2017 SHARMIN BRAY MD Ot E11.9 TYPE 2 DIABETES MELLITUS WITHOUT COMPLIC 04/30/2017 SHARMIN BRAY MD, Ot E66.9 OBESITY, UNSPECIFIED 04/30/2017 SHARMIN BRAY MD Ot E78.5 HYPERLIPIDEMIA, UNSPECIFIED 04/30/2017 SHARMIN BRAY MD Ot F10.99 ALCOHOL USE, UNSP WITH UNSPECIFIED ALCOH 04/30/2017 SHARMIN BRAY MD, Ot F17.210 NICOTINE DEPENDENCE, CIGARETTES, UNCOMPL 04/30/2017 SHARMIN BRAY MD Ot I10 ESSENTIAL (PRIMARY) HYPERTENSION 04/30/2017 SHARMIN RBAY MD, Ot Z68.38 BODY MASS INDEX (BMI) 38.0-38.9, ADULT 04/30/2017 SHARMIN BRAY MD, Ot Z79.899 OTHER FDC (CURRENT) DRUG THERAPY 05/20/2017 TOM ROMERO, CHITO Gavin Ot D64.9 ANEMIA, UNSPECIFIED 05/21/2017 GATO ROMERO, ODILIA Correa Ot D50.9 IRON DEFICIENCY ANEMIA, UNSPECIFIED 05/21/2017 GATO ROMERO, ODILIA Correa Ot D64.9 ANEMIA, UNSPECIFIED 05/21/2017 GATO ROMERO, ODILIA Correa Ot R06.02 SHORTNESS OF BREATH 05/21/2017 SHARMIN BRAY MD, Ot B18.2 CHRONIC VIRAL HEPATITIS C 05/21/2017 SHARMIN BRAY MD, Ot D50.9 IRON DEFICIENCY ANEMIA, UNSPECIFIED 05/21/2017 SHARMIN BRAY MD Ot E11.9 TYPE 2 DIABETES MELLITUS WITHOUT COMPLIC 05/21/2017 SHARMIN BRAY MD, Ot E66.9 OBESITY, UNSPECIFIED 05/21/2017 SHARMIN BRAY MD Ot E78.5 HYPERLIPIDEMIA, UNSPECIFIED 05/21/2017 SHARMIN BRAY MD Ot F10.99 ALCOHOL USE, UNSP WITH UNSPECIFIED ALCOH 05/21/2017 SHARMIN BRAY MD, Ot F17.210 NICOTINE DEPENDENCE, CIGARETTES, UNCOMPL 05/21/2017 SHARMIN BRAY MD Ot I10 ESSENTIAL (PRIMARY) HYPERTENSION 05/21/2017 SHARMIN BRAY MD, Ot Z68.38 BODY MASS INDEX (BMI) 38.0-38.9, ADULT 05/21/2017 SHARMIN BRAY MD, Ot Z79.899 OTHER FDC (CURRENT) DRUG THERAPY 05/21/2017 TOM ROMERO, CHITO Gavin Ot D64.9 ANEMIA, UNSPECIFIED 07/08/2017 SHARMIN BRAY MD, Ot B18.2 CHRONIC VIRAL HEPATITIS C 07/08/2017 SHARMIN BRAY MD, Ot D50.9 IRON DEFICIENCY ANEMIA, UNSPECIFIED 07/08/2017 SHARMIN BRAY MD Ot E11.9 TYPE 2 DIABETES MELLITUS WITHOUT COMPLIC 07/08/2017 SHARMIN BRAY MD Ot E66.9 OBESITY, UNSPECIFIED 07/08/2017 SHARMIN BRAY MD Ot E78.5 HYPERLIPIDEMIA, UNSPECIFIED 07/08/2017 SHARMIN BRAY MD, Ot F10.99 ALCOHOL USE, UNSP WITH UNSPECIFIED ALCOH 07/08/2017 SHARMIN BRAY MD, Ot F17.210 NICOTINE DEPENDENCE, CIGARETTES, UNCOMPL 07/08/2017 SHARMIN BRAY MD Ot I10 ESSENTIAL (PRIMARY) HYPERTENSION 07/08/2017 SHARMIN BRAY MD, Ot Z68.38 BODY MASS INDEX (BMI) 38.0-38.9, ADULT 07/08/2017 SHARMIN BRAY MD, Ot Z79.899 OTHER FDC (CURRENT) DRUG THERAPY 07/10/2017 SHARMIN BRAY MD, Ot B18.2 CHRONIC VIRAL HEPATITIS C 07/10/2017 SHARMIN BRAY MD, Ot D50.9 IRON DEFICIENCY ANEMIA, UNSPECIFIED 07/10/2017 SHARMIN BRAY MD Ot E11.9 TYPE 2 DIABETES MELLITUS WITHOUT COMPLIC 07/10/2017 SHARMIN BRAY MD, Ot E66.9 OBESITY, UNSPECIFIED 07/10/2017 SHARMIN BRAY MD, Ot E78.5 HYPERLIPIDEMIA, UNSPECIFIED 07/10/2017 SHARMIN BRAY MD, Ot F10.99 ALCOHOL USE, UNSP WITH UNSPECIFIED ALCOH 07/10/2017 SHARMIN BRAY MD, Ot F17.210 NICOTINE DEPENDENCE, CIGARETTES, UNCOMPL 07/10/2017 SHARMIN BRAY MD, Ot I10 ESSENTIAL (PRIMARY) HYPERTENSION 07/10/2017 SHARMIN BRAY MD, Ot Z68.38 BODY MASS INDEX (BMI) 38.0-38.9, ADULT 07/10/2017 SHARMIN BRAY MD, Ot Z79.899 OTHER FDC (CURRENT) DRUG THERAPY 07/11/2017 SHARMIN BRAY MD Ot B18.2 CHRONIC VIRAL HEPATITIS C 07/11/2017 SHARMIN BRAY MD, Ot D50.9 IRON DEFICIENCY ANEMIA, UNSPECIFIED 07/11/2017 SHARMIN BRAY MD Ot E11.9 TYPE 2 DIABETES MELLITUS WITHOUT COMPLIC 07/11/2017 SHARMIN BRAY MD Ot E66.9 OBESITY, UNSPECIFIED 07/11/2017 SHARMIN BRAY MD Ot E78.5 HYPERLIPIDEMIA, UNSPECIFIED 07/11/2017 SHARMIN BRAY MD Ot F10.99 ALCOHOL USE, UNSP WITH UNSPECIFIED ALCOH 07/11/2017 SHARMIN BRAY MD Ot F17.210 NICOTINE DEPENDENCE, CIGARETTES, UNCOMPL 07/11/2017 SHARMIN BRAY MD Ot I10 ESSENTIAL (PRIMARY) HYPERTENSION 07/11/2017 SHARMIN BRAY MD, Ot Z68.38 BODY MASS INDEX (BMI) 38.0-38.9, ADULT 07/11/2017 SHARMIN BRAY MD, Ot 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 08/23/2017 SHARMIN BRAY MD, Ot B18.2 CHRONIC VIRAL HEPATITIS C 08/23/2017 SHARMIN BRAY MD Ot D50.9 IRON DEFICIENCY ANEMIA, UNSPECIFIED 08/23/2017 SHARMIN BRAY MD, Ot E11.9 TYPE 2 DIABETES MELLITUS WITHOUT COMPLIC 08/23/2017 SHARMIN BRAY MD Ot E66.9 OBESITY, UNSPECIFIED 08/23/2017 SHARMIN BRAY MD Ot E78.5 HYPERLIPIDEMIA, UNSPECIFIED 08/23/2017 SHARMIN BRAY MD, Ot F10.99 ALCOHOL USE, UNSP WITH UNSPECIFIED ALCOH 08/23/2017 SHARMIN BRAY MD Ot F17.210 NICOTINE DEPENDENCE, CIGARETTES, UNCOMPL 08/23/2017 SHARMIN BRAY MD Ot I10 ESSENTIAL (PRIMARY) HYPERTENSION 08/23/2017 SHARMIN BRAY MD, Ot Z68.38 BODY MASS INDEX (BMI) 38.0-38.9, ADULT 08/23/2017 SHARMIN BRAY MD, Ot Z79.899 OTHER FDC (CURRENT) DRUG THERAPY 09/27/2017 SHARMIN BRAY MD, Ot B18.2 CHRONIC VIRAL HEPATITIS C 09/27/2017 SHARMIN BRAY MD Ot D50.9 IRON DEFICIENCY ANEMIA, UNSPECIFIED 09/27/2017 SHARMIN BRAY MD Ot E11.9 TYPE 2 DIABETES MELLITUS WITHOUT COMPLIC 09/27/2017 SHARMIN BRAY MD Ot E66.9 OBESITY, UNSPECIFIED 09/27/2017 SHARMIN BRAY MD Ot E78.5 HYPERLIPIDEMIA, UNSPECIFIED 09/27/2017 SHARMIN BRAY MD Ot F10.99 ALCOHOL USE, UNSP WITH UNSPECIFIED ALCOH 09/27/2017 SHARMIN BRAY MD Ot F17.210 NICOTINE DEPENDENCE, CIGARETTES, UNCOMPL 09/27/2017 SHARMIN BRAY MD Ot I10 ESSENTIAL (PRIMARY) HYPERTENSION 09/27/2017 SHARMIN BRAY MD, Ot Z68.38 BODY MASS INDEX (BMI) 38.0-38.9, ADULT 09/27/2017 SHARMIN BRAY MD, Ot Z79.899 OTHER FDC (CURRENT) DRUG THERAPY 11/20/2017 SHARMIN BRAY MD, Ot B18.2 CHRONIC VIRAL HEPATITIS C 11/20/2017 SHARMIN BRAY MD, Ot D50.9 IRON DEFICIENCY ANEMIA, UNSPECIFIED 11/20/2017 SHARMIN BRAY MD, Ot E11.9 TYPE 2 DIABETES MELLITUS WITHOUT COMPLIC 11/20/2017 SHARMIN BRAY MD Ot E66.9 OBESITY, UNSPECIFIED 11/20/2017 SHARMIN BRAY MD Ot E78.5 HYPERLIPIDEMIA, UNSPECIFIED 11/20/2017 SHARMIN BRAY MD, Ot F10.99 ALCOHOL USE, UNSP WITH UNSPECIFIED ALCOH 11/20/2017 SHARMIN BRAY MD Ot F17.210 NICOTINE DEPENDENCE, CIGARETTES, UNCOMPL 11/20/2017 SHARMIN BRAY MD Ot I10 ESSENTIAL (PRIMARY) HYPERTENSION 11/20/2017 SHARMIN BRAY MD, Ot Z68.38 BODY MASS INDEX (BMI) 38.0-38.9, ADULT 11/20/2017 SHARMIN BRAY MD, Ot Z79.899 OTHER FDC (CURRENT) DRUG THERAPY 11/21/2017 SHARMIN BRAY MD Ot B18.2 CHRONIC VIRAL HEPATITIS C 11/21/2017 SHARMIN BRAY MD, Ot D50.9 IRON DEFICIENCY ANEMIA, UNSPECIFIED 11/21/2017 SHARMIN BRAY MD Ot E11.9 TYPE 2 DIABETES MELLITUS WITHOUT COMPLIC 11/21/2017 SHARMIN BRAY MD Ot E66.9 OBESITY, UNSPECIFIED 11/21/2017 SHARMIN BRAY MD, Ot E78.5 HYPERLIPIDEMIA, UNSPECIFIED 11/21/2017 SHARMIN BRAY MD, Ot F10.99 ALCOHOL USE, UNSP WITH UNSPECIFIED ALCOH 11/21/2017 SHARMIN BRAY MD, Ot F17.210 NICOTINE DEPENDENCE, CIGARETTES, UNCOMPL 11/21/2017 SHARMIN BRAY MD Ot I10 ESSENTIAL (PRIMARY) HYPERTENSION 11/21/2017 SHARMIN BRAY MD, Ot Z68.38 BODY MASS INDEX (BMI) 38.0-38.9, ADULT 11/21/2017 SHARMIN BRAY MD, Ot 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 11/26/2017 SHARMIN BRAY MD, Ot B18.2 CHRONIC VIRAL HEPATITIS C 11/26/2017 SHARMIN BRAY MD, Ot D50.9 IRON DEFICIENCY ANEMIA, UNSPECIFIED 11/26/2017 SHARMIN BRAY MD, Ot E11.9 TYPE 2 DIABETES MELLITUS WITHOUT COMPLIC 11/26/2017 SHARMIN BRAY MD, Ot E66.9 OBESITY, UNSPECIFIED 11/26/2017 SHARMIN BRAY MD, Ot E78.5 HYPERLIPIDEMIA, UNSPECIFIED 11/26/2017 SHARMIN BRAY MD, Ot F10.99 ALCOHOL USE, UNSP WITH UNSPECIFIED ALCOH 11/26/2017 SHARMIN BRAY MD, Ot F17.210 NICOTINE DEPENDENCE, CIGARETTES, UNCOMPL 11/26/2017 SHARMIN BRAY MD Ot I10 ESSENTIAL (PRIMARY) HYPERTENSION 11/26/2017 SHARMIN BRAY MD, Ot Z68.38 BODY MASS INDEX (BMI) 38.0-38.9, ADULT 11/26/2017 SHARMIN BRAY MD, Ot Z79.899 OTHER FDC (CURRENT) DRUG THERAPY 01/13/2018 TOM ROMERO, CHITO Gavin Ot D64.9 ANEMIA, UNSPECIFIED 01/13/2018 SHARMIN BRAY MD, Ot B18.2 CHRONIC VIRAL HEPATITIS C 01/13/2018 SHARMIN BRAY MD, Ot D50.9 IRON DEFICIENCY ANEMIA, UNSPECIFIED 01/13/2018 SHARMIN BRAY MD, Ot E11.9 TYPE 2 DIABETES MELLITUS WITHOUT COMPLIC 01/13/2018 SHARMIN BRAY MD, Ot E66.9 OBESITY, UNSPECIFIED 01/13/2018 SHARMIN BRAY MD, Ot E78.5 HYPERLIPIDEMIA, UNSPECIFIED 01/13/2018 SHARMIN BRAY MD Ot F10.99 ALCOHOL USE, UNSP WITH UNSPECIFIED ALCOH 01/13/2018 SHARMIN BRAY MD, Ot F17.210 NICOTINE DEPENDENCE, CIGARETTES, UNCOMPL 01/13/2018 SHARMIN BRAY MD Ot I10 ESSENTIAL (PRIMARY) HYPERTENSION 01/13/2018 SHARMIN BRAY MD, Ot Z68.38 BODY MASS INDEX (BMI) 38.0-38.9, ADULT 01/13/2018 SHARMIN BRAY MD, Ot Z79.899 OTHER FDC (CURRENT) DRUG THERAPY Procedures Code Description [place] [address] ROUTINE VENIPUNCTURE 09/15/2012 OPHTH DIABETIC, EYE EXAM 09/15/2012 TING [place] 09/15/2012 43930 MICRO ALBUMIN-IN HOUSE 09/15/2012 06651 CMP 09/15/2012 [id number] GFR CALC (RESULT ONLY) 09/15/2012 54831 A1C (RML) 09/16/2012 09225 MICROALBUMIN 09/16/2012 27304 UA LONG DIP 11/14/2012 56190 A1C (IN-HOUSE) 12/16/2012 49141 ROUTINE VENIPUNCTURE 02/17/2013 28281 CMP 02/17/2013 05697 LIPID PANEL 02/17/2013 8496324 GFR CALC (RESULT ONLY) 02/17/2013 62683 CPK 02/17/2013 21120 IRON SERUM 02/17/2013 00311 IRON BNDNG CAP 02/18/2013 15047 HEPATITIS PROFILE 02/18/2013 [id number] HCV INDEX (RESULT ONLY) 02/18/2013 71068 FERRITIN 02/18/2013 IRGROUP IRON GROUP (Iron,TIBC, Ferritin) 02/22/2013 50083 ROUTINE VENIPUNCTURE 02/25/2013 52543 URINE DRUG SCREEN (IN-HOUSE ) 02/25/2013 58204 PT/INR 02/25/2013 37159 HIV ANTIBODIES (RML) 02/25/2013 75053 HEP B SURFACE ANTIBODY 02/25/2013 03263 HEP A ANTIBODY, IGM (RML) 02/25/2013 60657 HEP B SURFACE ANTIGEN (STATE ) 02/25/2013 20959 HEP C PCR QUANT W/[place] 02/25/2013 [facility]iou [facility] 03/26/2013 17066 OXIMETRY 07/07/2013 77146 ROUTINE VENIPUNCTURE 07/28/2013 64788 A1C (IN-HOUSE) 07/28/2013 40878 MICRO ALBUMIN-IN HOUSE 07/28/2013 63778 CMP 07/28/2013 15897 LIPID PANEL 07/28/2013 32151 MICROALBUMIN 07/28/2013 3456698 GFR CALC (RESULT ONLY) 07/28/2013 64429 CMP 11/02/2013 36823 UA LONG DIP 11/02/2013 73036 A1C (IN-HOUSE) 11/02/2013 19963 URINE DRUG SCREEN (IN-HOUSE ) 11/02/2013 67395 ROUTINE VENIPUNCTURE 02/19/2014 75064 MICRO ALBUMIN-IN HOUSE 02/19/2014 06962 A1C (IN-HOUSE) 02/19/2014 2028F FOOT EXAM PERFORMED 02/19/2014 7675168 GFR CALC (RESULT ONLY) 02/19/2014 52372 CMP 02/19/2014 93209 EYE EXAM PERFORMED 02/22/2014 77772 MICROALBUMIN 02/22/2014 66758 A1C (IN-HOUSE) 06/28/2014 Results Test Result Range Capillary blood glucose measurement by glucometer (mass/volume) - 05/20/16 15: 40 Capillary blood glucose measurement by glucometer (mass/volume) 377 mg/dL 70-110 Complete urinalysis with reflex to culture - 05/20/16 15:50 Urine color determination YELLOW NRG Urine clarity determination SLIGHTLY CLOUDY NRG Urine pH measurement by test strip 5 5-9 Specific gravity of urine by test strip 1.015 1.016- 1.022 Urine protein assay by test strip, semi-quantitative [...] culture - 05/20/16 15:50 Bacterial urine culture [id number] NRG COLONY COUNT >100,000/ML NRG FTX;REPORTABLE SENSITIVITY REPORTED AT 1534, 05-21-16 NRG Bacterial susceptibility panel - 05/20/16 15:50 Gentamicin susceptibility test by minimum inhibitory concentration < = NRG Trimethoprim/sulfamethoxazole susceptibility test by minimum inhibitoryconcentration <= NRG Ampicillin susceptibility test by minimum inhibitory concentration < = NRG Tobramycin susceptibility test by minimum inhibitory concentration < = NRG Cefazolin susceptibility test by minimum inhibitory concentration < = NRG Ceftriaxone susceptibility test by minimum inhibitory concentration <= NRG Ampicillin/sulbactam susceptibility test by minimum inhibitory concentration <= NRG Piperacillin/tazobactam susceptibility test by minimum inhibitory concentration <= NRG Ciprofloxacin susceptibility test by minimum inhibitory concentration <= NRG Meropenem susceptibility test by minimum inhibitory concentration < = NRG Nitrofurantoin susceptibility test by minimum inhibitory concentration 32 NRG Aztreonam susceptibility test by minimum inhibitory concentration < = NRG Extended spectrum beta lactamase (ESBL) producing [...] Urine pH measurement by test strip 6.5 5-9 Specific gravity of urine by test strip 1.005 1.016- 1.022 Urine protein assay by test strip, semi-quantitative [...] 17:50 Blood leukocytes automated count (number/volume) 8.7 10*3/uL 4.3-11.0 Blood erythrocytes automated count (number/volume) 3.97 10*6/uL 4.35-5.85 Venous blood hemoglobin measurement (mass/volume) 8.8 [...] Automated blood platelet mean volume measurement 9.0 [foz_us] 7.4-10.4 Automated blood neutrophils/100 leukocytes 67 % [...] Serum or plasma sodium measurement (moles/volume) 134 mmol/L 135-145 Serum or plasma potassium measurement (moles/volume) 3.8 mmol/L 3.6-5.0 Serum or plasma chloride measurement (moles/volume) 103 mmol/L 98-107 Carbon dioxide 18 mmol/L 21-32 Serum or plasma anion gap determination (moles/volume) 13 mmol/L 5-14 Serum or plasma urea nitrogen measurement (mass/volume) 16 mg/dL 7-18 Serum or plasma creatinine measurement (mass/volume) 1.14 mg/dL 0.60-1.30 Serum or plasma urea nitrogen/creatinine mass [...] plasma C reactive protein measurement (mass/volume) 2.05 mg /dL 0.00-0.50 Microalb/Creat Ratio, Rand Ur - 07/26/16 09:45 Creatinine, Urine 218.0 mg/dL Not Estab. Microalbumin, Urine 802.5 ug/mL Not Estab. Microalb/Creat Ratio 368.1 mg/g creat 0.0-30.0 Anemia Profile B - 12/18/16 15:44 WBC 5.9 x10E3/uL 3.4-10.8 RBC 4.96 x10E6/uL 4.14-5.80 Hemoglobin 12.8 g/dL 12.6-17.7 Hematocrit 40.4 % 37.5-51.0 MCV 82 fL 79-97 MCH 25.8 pg 26.6-33.0 MCHC 31.7 g/dL 31.5-35.7 RDW 15.7 % 12.3-15.4 Platelets 237 x10E3/uL 150-379 Neutrophils 66 % Lymphs 21 % Monocytes 7 % Eos 5 % Basos 1 % Neutrophils (Absolute) 3.9 x10E3/uL 1.4-7.0 Lymphs (Absolute) 1.3 x10E3/uL 0.7-3.1 Monocytes(Absolute) 0.4 x10E3/uL 0.1-0.9 Eos (Absolute) 0.3 x10E3/uL 0.0-0.4 Baso (Absolute) 0.0 x10E3/uL 0.0-0.2 Immature Granulocytes 0 % Immature Grans (Abs) 0.0 x10E3/uL 0.0-0.1 Vitamin B12 597 pg/mL 211-946 Folate (Folic Acid), Serum 10.7 ng/mL >3.0 Iron Bind.Cap.(TIBC) 541 ug/dL 250-450 UIBC 455 ug/dL 111-343 Iron, Serum 86 ug/dL 38-169 Iron Saturation 16 % 15-55 Ferritin, Serum 12 ng/mL 30-400 Reticulocyte Count 2.1 % 0.6-2.6 Comp. Metabolic Panel (14) - 12/18/16 15:44 Glucose, Serum 318 mg/dL 65-99 BUN 21 mg/dL 6-24 Creatinine, Serum 1.01 mg/dL 0.76-1.27 eGFR If NonAfricn Am 83 mL/min/1.73 >59 eGFR If Africn Am 96 mL/min/1.73 >59 BUN/Creatinine Ratio 21 9-20 Sodium, Serum 135 mmol/L 134-144 Potassium, Serum 5.2 mmol/L 3.5-5.2 Chloride, Serum 95 mmol/L 96-106 Carbon Dioxide, Total 25 mmol/L 18-29 Calcium, Serum 10.2 mg/dL 8.7-10.2 Protein, Total, Serum 8.5 g/dL 6.0-8.5 Albumin, Serum 4.5 g/dL 3.5-5.5 Globulin, Total 4.0 g/dL 1.5-4.5 A/G Ratio 1.1 1.1-2.5 Bilirubin, Total 0.4 mg/dL 0.0-1.2 Alkaline Phosphatase, S 88 IU/L 39-117 AST (SGOT) 41 IU/L 0-40 ALT (SGPT) 62 IU/L 0-44 Lipid Panel - 12/18/16 15:44 Cholesterol, Total 232 mg/dL 100-199 Triglycerides 214 mg/dL 0-149 HDL Cholesterol 43 mg/dL >39 VLDL Cholesterol Heriberto 43 mg/dL 5-40 LDL Cholesterol Calc 146 mg/dL 0-99 Automated blood complete blood count (hemogram) panel - 02/19/17 07:59 Blood leukocytes automated count (number/volume) 3.7 10*3/uL 4.3-11.0 Blood erythrocytes automated count (number/volume) 2.77 10*6/uL 4.35-5.85 Venous blood hemoglobin measurement (mass/volume) 6.4 [...] Automated blood platelet mean volume measurement 9.0 [foz_us] 7.4-10.4 PT panel in platelet poor plasma [...] Serum or plasma sodium measurement (moles/volume) 137 mmol/L 135-145 Serum or plasma potassium measurement (moles/volume) 4.5 mmol/L 3.6-5.0 Serum or plasma chloride measurement (moles/volume) 105 mmol/L 98-107 Carbon dioxide 24 mmol/L 21-32 Serum or plasma anion gap determination (moles/volume) 8 mmol/L 5-14 Serum or plasma urea nitrogen measurement (mass/volume) 24 mg/dL 7-18 Serum or plasma creatinine measurement (mass/volume) 1.35 mg/dL 0.60-1.30 Serum or plasma urea nitrogen/creatinine mass [...] Serum or plasma cholesterol measurement (mass/volume) 154 mg/dL < 200 Serum or plasma cholesterol in HDL measurement (mass/volume) 38 mg/ dL 40-60 Cholesterol in LDL [mass/volume] in serum or plasma by direct assay 91 mg/dL 1-129 Serum or plasma cholesterol in VLDL measurement (mass/volume) 27 mg/ dL 5-40 Methicillin resistant Staphylococcus aureus (MRSA) screening culture - 07:59 Methicillin resistant Staphylococcus aureus (MRSA) screening culture NEG NRG RED CELLS LEUKO REDUCED AS1 - 02/19/17 11:16 RED CELLS LEUKO REDUCED AS1 TRANSFUSED 02/20/17 1122 NRG Blood type T Indirect antibody screen panel - 02/19/17 11:16 ABO+Rh group BP NRG Transfusion band number [id number] NR Blood group antibody screen NEGATIVE NR CBC With Differential/Platelet - 03/01/17 16:51 WBC 4.6 x10E3/uL 3.4-10.8 RBC 3.06 x10E6/uL 4.14-5.80 Hemoglobin 7.2 g/dL 12.6-17.7 Hematocrit 23.7 % 37.5-51.0 MCV 78 fL 79-97 MCH 23.5 pg 26.6-33.0 MCHC 30.4 g/dL 31.5-35.7 RDW 17.4 % 12.3-15.4 Platelets 227 x10E3/uL 150-379 Neutrophils 53 % Lymphs 31 % Monocytes 11 % Eos 4 % Basos 1 % Neutrophils (Absolute) 2.4 x10E3/uL 1.4-7.0 Lymphs (Absolute) 1.4 x10E3/uL 0.7-3.1 Monocytes(Absolute) 0.5 x10E3/uL 0.1-0.9 Eos (Absolute) 0.2 x10E3/uL 0.0-0.4 Baso (Absolute) 0.0 x10E3/uL 0.0-0.2 Immature Granulocytes 0 % Immature Grans (Abs) 0.0 x10E3/uL 0.0-0.1 Complete blood count (CBC) with automated white blood cell (WBC) differential - 03/08/17 10:30 Blood leukocytes automated count (number/volume) 4.2 10*3/uL 4.3-11.0 Blood erythrocytes automated count (number/volume) 3.00 10*6/uL 4.35-5.85 Venous blood hemoglobin measurement (mass/volume) 6.9 [...] Automated blood platelet mean volume measurement 9.0 [foz_us] 7.4-10.4 Automated blood neutrophils/100 leukocytes 61 % [...] Serum or plasma sodium measurement (moles/volume) 136 mmol/L 135-145 Serum or plasma potassium measurement (moles/volume) 4.5 mmol/L 3.6-5.0 Serum or plasma chloride measurement (moles/volume) 105 mmol/L 98-107 Carbon dioxide 22 mmol/L 21-32 Serum or plasma anion gap determination (moles/volume) 9 mmol/L 5-14 Serum or plasma urea nitrogen measurement (mass/volume) 26 mg/dL 7-18 Serum or plasma creatinine measurement (mass/volume) 1.29 mg/dL 0.60-1.30 Serum or plasma urea nitrogen/creatinine mass [...] or plasma troponin i.cardiac measurement (mass/volume) < ng/ mL <0.30 Myoglobin, serum - 03/08/17 10:30 Myoglobin, serum 38.2 ng/mL 10.0-92.0 ANEMIA ANALYZER - 03/08/17 10:36 Blood leukocytes automated count (number/volume) 4.2 10*3/uL 4.3-11.0 Blood erythrocytes automated count (number/volume) 3.00 10*6/uL 4.35-5.85 Venous blood hemoglobin measurement (mass/volume) 6.9 [...] Automated blood platelet mean volume measurement 9.0 [foz_us] 7.4-10.4 Automated blood neutrophils/100 leukocytes 61 % [...] NRG Blood reticulocytes count (number/volume) 79 10*9/L 24- 90 Blood reticulocytes/100 erythrocytes 2.57 % 0.50-2.40 Serum or plasma ferritin measurement (mass/volume) - 03/08/17 10:36 Serum or plasma ferritin measurement (mass/volume) 5.0 L 25.0-300.0 Immature platelet percentage - 03/08/17 10:36 Immature platelet percentage 3.9 % 0.0-7.2 PT panel in platelet poor plasma by [...] 11:22 RED CELLS LEUKO REDUCED AS1 TRANSFUSED 03/09/17 1333 NRG Blood type T Indirect antibody screen panel - 03/08/17 11:22 ABO+Rh group BP NRG Transfusion band number [id number] NRG Blood group antibody screen NEGATIVE NRG Methicillin resistant Staphylococcus aureus (MRSA) screening culture - 12:30 Methicillin resistant Staphylococcus aureus (MRSA) screening culture NEG NRG Whole blood hemoglobin and hematocrit panel - [...] 03:44 Blood leukocytes automated count (number/volume) 4.1 10*3/uL 4.3-11.0 Blood erythrocytes automated count (number/volume) 3.37 10*6/uL 4.35-5.85 Venous blood hemoglobin measurement (mass/volume) 8.1 [...] Automated blood platelet mean volume measurement 9.8 [foz_us] 7.4-10.4 Automated blood neutrophils/100 leukocytes 60 % [...] Serum or plasma triglyceride measurement (mass/volume) 89 mg/dL <150 Serum or plasma cholesterol measurement (mass/volume) 128 mg/dL < 200 Serum or plasma cholesterol in HDL measurement (mass/volume) 35 mg/ dL 40-60 Cholesterol in LDL [mass/volume] in serum or plasma by direct assay 77 mg/dL 1-129 Serum or plasma cholesterol in VLDL measurement (mass/volume) 18 mg/ dL 5-40 Whole blood basic metabolic panel - 03/09/17 03:44 Serum or plasma sodium measurement (moles/volume) 137 mmol/L 135-145 Serum or plasma potassium measurement (moles/volume) 4.5 mmol/L 3.6-5.0 Serum or plasma chloride measurement (moles/volume) 108 mmol/L 98-107 Carbon dioxide 21 mmol/L 21-32 Serum or plasma anion gap determination (moles/volume) 8 mmol/L 5-14 Serum or plasma urea nitrogen measurement (mass/volume) 22 mg/dL 7-18 Serum or plasma creatinine measurement (mass/volume) 1.06 mg/dL 0.60-1.30 Serum or plasma urea nitrogen/creatinine mass ratio 21 NRG Serum or plasma creatinine measurement with calculation of estimated glomerular filtration rate > NRG Serum or plasma glucose measurement (mass/volume) 167 mg/dL 70-105 Serum or plasma calcium measurement (mass/volume) 8.4 mg/dL 8.5-10.1 Serum or plasma phosphate measurement (mass/volume) - 03/09/17 03:44 Serum or plasma phosphate measurement (mass/volume) 3.7 mg/dL 2.3-4.7 Magnesium - 03/09/17 03:44 Magnesium 1.9 mg/dL 1.8-2.4 Serum or plasma [id number].[id number] marker measurement (mass/volume) - 03:44 Serum or plasma [id number].tumor marker measurement (mass/volume) 2.2 % 1.5-10.0 Urine [...] 16:34 Blood leukocytes automated count (number/volume) 4.5 10*3/uL 4.3-11.0 Blood erythrocytes automated count (number/volume) 4.10 10*6/uL 4.35-5.85 Venous blood hemoglobin measurement (mass/volume) 10.3 [...] Automated blood platelet mean volume measurement 9.5 [foz_us] 7.4-10.4 Complete blood count (CBC) with automated white blood cell (WBC) differential - 03/11/17 21:35 Blood leukocytes automated count (number/volume) 6.6 10*3/uL 4.3-11.0 Blood erythrocytes automated count (number/volume) 4.45 10*6/uL 4.35-5.85 Venous blood hemoglobin measurement (mass/volume) 11.0 g/dL 13.3-17.7 Blood hematocrit (volume fraction) 35 % 40-54 Automated erythrocyte mean corpuscular volume 80 [foz_us] 80-99 Automated erythrocyte mean corpuscular hemoglobin (mass per erythrocyte) 25 pg 25-34 Automated erythrocyte mean corpuscular hemoglobin concentration measurement ( mass/volume) 31 g/dL 32-36 Automated erythrocyte distribution width ratio 17.9 % 10.0-14.5 Automated blood platelet count (count/volume) 261 10*3/uL 130-400 Automated blood platelet mean volume measurement 9.4 [foz_us] 7.4-10.4 Automated blood neutrophils/100 leukocytes 62 % [...] Urine pH measurement by test strip 5 5-9 Specific gravity of urine by test strip 1.025 1.016- 1.022 Urine protein assay by test strip, semi-quantitative [...] Complete urinalysis with reflex to culture NO NR Comprehensive metabolic panel - 03/11/17 21:35 Serum or plasma sodium measurement (moles/volume) 139 mmol/L 135-145 Serum or plasma potassium measurement (moles/volume) 4.3 mmol/L 3.6-5.0 Serum or plasma chloride measurement (moles/volume) 107 mmol/L 98-107 Carbon dioxide 20 mmol/L 21-32 Serum or plasma anion gap determination (moles/volume) 12 mmol/L 5-14 Serum or plasma urea nitrogen measurement (mass/volume) 28 mg/dL 7-18 Serum or plasma creatinine measurement (mass/volume) 1.47 mg/dL 0.60-1.30 Serum or plasma urea nitrogen/creatinine mass [...] or plasma troponin i.cardiac measurement (mass/volume) < ng/ mL <0.30 Serum or plasma amylase measurement (enzymatic activity/volume) - 03/11/17 21: 35 Serum or plasma amylase measurement (enzymatic activity/volume) 72 U /L 25-125 Lipase - 03/11/17 21:35 Lipase 32 [...] Stool bacteria identification by culture N2 NRG [id number] - 03/11/17 21:35 [id number] FOOTNOTE NRG CBC With Differential/Platelet - 03/20/17 12:51 WBC 3.7 x10E3/uL 3.4-10.8 RBC 3.99 x10E6/uL 4.14-5.80 Hemoglobin 9.9 g/dL 12.6-17.7 Hematocrit 32.2 % 37.5-51.0 MCV 81 fL 79-97 MCH 24.8 pg 26.6-33.0 MCHC 30.7 g/dL 31.5-35.7 RDW 19.2 % 12.3-15.4 Platelets 222 x10E3/uL 150-379 Neutrophils 65 % Lymphs 20 % Monocytes 8 % Eos 6 % Basos 1 % Neutrophils (Absolute) 2.4 x10E3/uL 1.4-7.0 Lymphs (Absolute) 0.8 x10E3/uL 0.7-3.1 Monocytes(Absolute) 0.3 x10E3/uL 0.1-0.9 Eos (Absolute) 0.2 x10E3/uL 0.0-0.4 Baso (Absolute) 0.0 x10E3/uL 0.0-0.2 Immature Granulocytes 0 % Immature Grans (Abs) 0.0 x10E3/uL 0.0-0.1 Comp. Metabolic Panel (14) - 03/20/17 12:51 Glucose, Serum 267 mg/dL 65-99 BUN 22 mg/dL 6-24 Creatinine, Serum 1.08 mg/dL 0.76-1.27 eGFR If NonAfricn Am 77 mL/min/1.73 >59 eGFR If Africn Am 89 mL/min/1.73 >59 BUN/Creatinine Ratio 20 9-20 Sodium, Serum 136 mmol/L 134-144 Potassium, Serum 4.7 mmol/L 3.5-5.2 Chloride, Serum 99 mmol/L 96-106 Carbon Dioxide, Total 24 mmol/L 18-29 Calcium, Serum 9.0 mg/dL 8.7-10.2 Protein, Total, Serum 7.3 g/dL 6.0-8.5 Albumin, Serum 4.1 g/dL 3.5-5.5 Globulin, Total 3.2 g/dL 1.5-4.5 A/G Ratio 1.3 1.2-2.2 Bilirubin, Total 0.4 mg/dL 0.0-1.2 Alkaline Phosphatase, S 55 IU/L 39-117 AST (SGOT) 42 IU/L 0-40 ALT (SGPT) 42 IU/L 0-44 Capillary blood glucose measurement by glucometer (mass/volume) - 04/12/17 13: 17 Capillary blood glucose measurement by glucometer (mass/volume) 120 mg/dL 70-110 CBC With Differential/Platelet - 05/13/17 09:05 WBC 4.2 x10E3/uL 3.4-10.8 RBC 4.24 x10E6/uL 4.14-5.80 Hemoglobin 10.3 g/dL 12.6-17.7 Hematocrit 33.0 % 37.5-51.0 MCV 78 fL 79-97 MCH 24.3 pg 26.6-33.0 MCHC 31.2 g/dL 31.5-35.7 RDW 18.3 % 12.3-15.4 Platelets 210 x10E3/uL 150-379 Neutrophils 56 % Lymphs 29 % Monocytes 9 % Eos 5 % Basos 1 % Neutrophils (Absolute) 2.4 x10E3/uL 1.4-7.0 Lymphs (Absolute) 1.2 x10E3/uL 0.7-3.1 Monocytes(Absolute) 0.4 x10E3/uL 0.1-0.9 Eos (Absolute) 0.2 x10E3/uL 0.0-0.4 Baso (Absolute) 0.0 x10E3/uL 0.0-0.2 Immature Granulocytes 0 % Immature Grans (Abs) 0.0 x10E3/uL 0.0-0.1 Comp. Metabolic Panel (14) - 05/13/17 09:05 Glucose, Serum 161 mg/dL 65-99 BUN 22 mg/dL 6-24 Creatinine, Serum 1.02 mg/dL 0.76-1.27 eGFR If NonAfricn Am 82 mL/min/1.73 >59 eGFR If Africn Am 95 mL/min/1.73 >59 BUN/Creatinine Ratio 22 9-20 Sodium, Serum 140 mmol/L 134-144 Potassium, Serum 4.9 mmol/L 3.5-5.2 Chloride, Serum 99 mmol/L 96-106 Carbon Dioxide, Total 23 mmol/L 18-29 Calcium, Serum 10.2 mg/dL 8.7-10.2 Protein, Total, Serum 8.0 g/dL 6.0-8.5 Albumin, Serum 4.4 g/dL 3.5-5.5 Globulin, Total 3.6 g/dL 1.5-4.5 A/G Ratio 1.2 1.2-2.2 Bilirubin, Total 0.3 mg/dL 0.0-1.2 Alkaline Phosphatase, S 71 IU/L 39-117 AST (SGOT) 39 IU/L 0-40 ALT (SGPT) 42 IU/L 0-44 Lipid Panel - 05/13/17 09:05 Cholesterol, Total 180 mg/dL 100-199 Triglycerides 141 mg/dL 0-149 HDL Cholesterol 42 mg/dL >39 VLDL Cholesterol Heriberto 28 mg/dL 5-40 LDL Cholesterol Calc 110 mg/dL 0-99 Iron and TIBC - 05/13/17 09:05 Iron Bind.Cap.(TIBC) 549 ug/dL 250-450 UIBC 363 ug/dL 111-343 Iron, Serum 186 ug/dL 38-169 Iron Saturation 34 % 15-55 Encounters ACCT No. Visit Date/Time Discharge Status Pt. Type Provider Facility Loc./Unit Complaint [id number] 06/28/2014 10:11:00 06/28/2014 23:59:59 CLS Outpatient NIMISHA MORIN DO [id number] 02/19/2014 14:05:00 02/19/2014 23:59:59 CLS Outpatient NIMISHA MORIN DO [id number] 11/02/2013 13:11:00 11/02/2013 23:59:59 CLS Outpatient NIMISHA MORIN DO [id number] 07/28/2013 10:36:00 07/28/2013 23:59:59 CLS Outpatient NIMISHA MORIN DO [id number] 07/07/2013 11:21:00 07/07/2013 23:59:59 CLS Outpatient NIMISHA MORIN DO [id number] 06/10/2013 12:44:00 06/10/2013 23:59:59 CLS Outpatient DOUGLAS SEO DDS Arnold [id number] 12/16/2012 10:05:00 12/16/2012 23:59:59 CLS Outpatient [id number] 11/14/2012 10:48:00 11/14/2012 23:59:59 CLS Outpatient NIMISHA MORIN DO [id number] 10/16/2012 09:54:00 10/16/2012 23:59:59 CLS Outpatient [id number] 09/15/2012 11:06:00 09/15/2012 23:59:59 CLS Outpatient MORIN DONIMISHA [id number] 09/15/2012 11:06:00 09/15/2012 23:59:59 CLS Outpatient NIMISHA MORIN DO [id number] 02/25/2013 14:06:00 Document Registration [id number] 02/17/2013 08:01:00 Document Registration [id number] 05/14/2017 08:35:00 Document Registration [id number] 01/28/2018 16:20:00 01/28/2018 23:59:59 CLS Outpatient LALO LOPEZ APRN [facility] [id number] 12/19/2016 10:11:00 Document Registration [id number] 01/27/2018 08:54:00 01/27/2018 23:59:59 CLS Outpatient SHARMIN BRAY MD [facility] ONC [id number] 11/14/2017 08:51:00 11/20/2017 00:01:00 DIS Outpatient SHARMIN BRAY MD [facility] ONC [id number] 07/08/2017 09:35:00 07/10/2017 00:01:00 DIS Outpatient SHARMIN BRAY MD [facility] ONC [id number] 05/21/2017 00:14:00 05/21/2017 23:59:59 CLS Preadmit CHITO SANTOS MD [facility] ANEMIA [id number] 02/19/2017 10:42:00 05/20/2017 00:01:00 DIS Outpatient CHITO SANTOS MD [facility] ANEMIA [id number] 04/12/2017 12:04:00 04/12/2017 17:06:00 DIS Outpatient ANABELL ORELLANA DO [facility] ENDO IRON DEF. ANEMIA [id number] 04/10/2017 05:37:00 04/10/2017 11:23:00 DIS Outpatient ANABELL ORELLANA DO [facility] PREOP IRON DEF. ANEMIA [id number] 03/11/2017 21:00:00 03/11/2017 23:44:00 DIS Emergency TY GILES DO [facility] ER SOB/STOMACH PAIN/BODY ACHES/NAUSEA [id number] 03/08/2017 11:41:00 03/09/2017 17:30:00 DIS Inpatient KATE ROMERO, JILLIAN Self [facility] ICU CHEST PAIN,SYMPTOMATIC ANEMIA [id number] 02/19/2017 07:23:00 02/19/2017 08:56:00 DIS Outpatient ALLAN ROMERO FACC, REY NERI CCDS [facility] CATH CHEST DISCOMFORT,DM TYPE 2,HTN,HL [id number] 08/06/2016 08:55:00 10/22/2016 00:01:00 DIS Outpatient ODILIA HOSKINS MD [facility] ONC [id number] 06/26/2016 13:50:00 07/24/2016 13:14:00 DIS Outpatient ODILIA HOSKINS MD [facility] ONC [id number] 07/22/2016 17:15:00 07/22/2016 20:27:00 DIS Emergency SAVANA STONER MD [facility] ER L TESTICLE SWELLING [id number] 05/20/2016 15:19:00 05/20/2016 16:40:00 DIS Emergency CLIFFORD REESE MD [facility] ER PAINFUL URINATION/ GENERALIZED WEAKNESS/BACK PAIN [id number] 04/04/2016 14:11:00 04/30/2016 00:01:00 DIS Outpatient ODILIA HOSKINS MD [facility] ONC [id number] 04/10/2016 10:03:00 04/10/2016 16:08:00 DIS Outpatient ANABELL ORELLANA DO [facility] SDC ANEMIA [id number] 04/09/2016 10:30:00 04/09/2016 15:35:00 DIS Outpatient ANABELL ORELLANA DO [facility] PREOP ANEMIA [id number] 02/02/2016 13:12:00 02/02/2016 23:59:59 CLS Outpatient ODILIA HOSKINS MD [facility] RAD SOA,ANEMIA [id number] 05/30/2015 11:46:00 05/30/2015 14:15:00 DIS Emergency LUCINA GOEL APRN [facility] ER LETHARGIC CONGESTION NAUSEA DIARRHEA [id number] 03/25/2018 08:00:00 PEN Preadmit ANABELL ORELLANA DO [facility] ENDO GERD/IRON DEFICIENCY ANEMIA [id number] 08/11/2012 12:53:00 Document Registration [id number] 04/11/2017 08:13:40 04/11/2017 23:59:59 CLS Outpatient REVA JACOBO [id number] 03/02/2017 07:06:00 Document Registration [id number] 05/03/2015 00:00:00 05/03/2015 23:59:59 CLS Outpatient Scanned Documents [id number] 07/27/2016 13:05:00 Document Registration [id number] 03/21/2017 08:45:00 Document Registration
== END 2018-03-23 14:50 | disposition home or self-care (01) ==
LOC: EDUNIT# 21:44 → ER 21:44 → ICU 21:45 → UNDOADMOB 03-22 → ICU 03-22 → 4TH 03-22 15:59 → UNDODISOB 03-23 14:50
PROVIDERS: ADMIT Family Medicine; ATTEND Family Medicine
DX: R07.89 Other chest pain (principal); E66.9 Obesity, unspecified; F17.210 Nicotine dependence, cigarettes, uncomplicated; E11.42 Type 2 diabetes mellitus with diabetic polyneuropathy; I10 Essential (primary) hypertension; I25.10 Atherosclerotic heart disease of native coronary artery without angina pectoris; F15.90 Other stimulant use, unspecified, uncomplicated; B18.2 Chronic viral hepatitis C; E78.00 Pure hypercholesterolemia, unspecified; I25.2 Old myocardial infarction; G47.30 Sleep apnea, unspecified; K21.9 Gastro-esophageal reflux disease without esophagitis; E83.42 Hypomagnesemia; Z79.4 Long term (current) use of insulin; Z86.010 Personal history of colon polyps
CPT/HCPCS: 36415; 70450; 71045; 80048; 80053; 80306; 80320; 82150; 82550; 82553; 82962; 83690; 83735; 83874; 83880; 84100; 84484; 85025; 85610; 85730; 87081; 93005; 93041; G0378

== ENCOUNTER 2019-02-11 12:47 | Inpatient (IN) | payer SELFPAY ==
[~2019-02-11] VITALS: Ht 157.5 cm; Wt 96.2 kg
[~2019-02-11 12:47] MED LIST changes: +METF-397 PO; +METF-399 PO; -METF10002 PO; -METF500T5 PO; -PIOG45TA18 PO; +PIOG45TA65 PO
--- OUTSIDE RECORDS SUMMARY | 2019-02-11 12:52 | XMS REPORT ---
Author Author Migration, Doctor Organization [facility] Address Unknown Phone Unavailable Care Team Providers Care Hyperbaric Technologist Name Role Phone Migration, Doctor Unavailable Unavailable PROBLEMS Type Condition ICD9-CM Code [id number] Code Onset Dates Condition Status SNOMED Code Problem Type 2 diabetes mellitus with other specified complication E11.69 Active [id number] Problem HTN (hypertension) I10 Active 66065567 Problem Drug abuse and dependence F19.20 Active 0581783 Problem Erectile dysfunction N52.9 Active 436974219 Problem Essential hypertension I10 Active 46272455 Problem Dental caries, unspecified K02.9 Active 41181009 Problem Epididymitis N45.1 Active 11805108 Problem Anemia D64.9 Active 959647199 Problem Chronic obstructive pulmonary disease, unspecified COPD type J44.9 Active 60439794 Problem Iron deficiency anemia due to chronic blood loss D50.0 Active 60368720 Problem Hypercholesteremia E78.0 Active 120619140 Problem Pure hypercholesterolemia, unspecified E78.00 Active 658599403 Problem Chronic fatigue R53.82 Active 95894209 Problem 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 Active 2859604773610 Problem Environmental allergies Z91.09 Active 469472928 Problem Other male erectile dysfunction N52.8 Active 587725505 Problem Mixed hyperlipidemia E78.2 Active 095577390 Problem Alcohol abuse F10.10 Active 06926923 Problem Proteinuria R80.9 Active 01429562 Problem Chronic hepatitis C without hepatic coma B18.2 Active 820334558 Problem Benign prostatic hyperplasia without lower urinary tract symptoms N40.0 Active 955126383 Problem Other iron deficiency anemia D50.8 Active 13066807 Problem Sexual dysfunction R37 Active 07622354 ALLERGIES No Information ENCOUNTERS Encounter Location Date Diagnosis [facility] [address] [address] Jul, Chronic fatigue R53.82 and Acute non-recurrent maxillary sinusitis J01.00 [facility] [address], [place] [address] Apr, Essential hypertension I10 [facility] [id number] [place] [address] 60430- 3947 Mar, Essential hypertension I10 [facility] [id number] [place] [address] 15837- 6583 Mar, [facility] [id number] [place] [address] 77544- 8665 Jan, Sebaceous cyst L72.3 [facility] [id number] [place] [address] 50750- 6315 Jan, [facility] [id number] [place] [address] 97445- 5489 Jan, [facility] [id number] [place] [address] 85226- 0240 Jan, Type 2 diabetes mellitus with other [...] anemia due to chronic blood loss D50.0 [facility] [id number] [place] [address] 22517- 8684 Nov, Dental caries K02.9 [facility] [address] [place] [address] [id number] Nov, Dental caries K02.9 [facility] [id number] [place] [address] 27553- 5987 Oct, HTN (hypertension) I10 [facility] [id number] [place] [address] 37702- 8505 Sep, Type 2 diabetes mellitus with other specified complication E11.69 [facility] [address] [place] [address] Sep, [facility] [id number] [place] [address] 89910- 8401 Aug, HTN (hypertension) I10 ; Type 2 diabetes mellitus with other specified complication E11.69 ; Benign prostatic hyperplasia without lower urinary tract symptoms N40.0 and Other iron deficiency anemia D50.8 [facility] [id number] [place] [address] [id number] Aug, [facility] [id number] [place] [address] [id number] Aug, [facility] [address] [id number] Jul, Dental examination Z01.20 [facility] [address] [address]- 5785 Jul, Type 2 diabetes mellitus with other specified complication E11.69 [facility] [place] [address] 62783- 2150 May, [facility] [address] 20518- 7006 Apr, Type 2 diabetes mellitus with other specified complication E11.69 ; Proteinuria R80.9 ; HTN (hypertension) I10 ; Erectile dysfunction N52.9 ; Chronic obstructive pulmonary disease, unspecified COPD type J44.9 ; Chronic hepatitis C without hepatic coma B18.2 ; 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 ; Iron deficiency anemia due to chronic blood loss D50.0 and Hypercholesteremia E78.0 [facility] [id number] [place] [address] 28570- 9445 Mar, Diabetes mellitus E11.9 ; Hypercholesteremia E78.0 and Type 2 diabetes mellitus with other specified complication E11.69 [facility] [id number] [place] [address] 24785- 4720 Mar, [facility] [address] 94601- 2810 Mar, Iron deficiency anemia due to chronic blood loss D50.0 [facility] [place] [address] [place] [address] 03871- 3599 Mar, Type 2 diabetes mellitus with other specified complication E11.69 and Iron deficiency anemia due to chronic blood loss D50.0 [facility] [address] [address] 7[address] Mar, Iron deficiency anemia due to chronic blood loss D50.0 [facility] [id number] [place] [address] 06638- 4049 February, [facility] [id number] [place] [address] 85822- 1087 February, Iron deficiency anemia due to chronic blood loss D50.0 [facility] [id number] [place] [address] 26241- 6328 February, [facility] [id number] [place] [address] 59548- 7041 February, Anemia D64.9 [facility] [id number] [place] [address] 27059- 7871 February, Anemia D64.9 and 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 [facility] [address], [place] [address] Jan, Chest discomfort R07.89 ; Type 2 diabetes mellitus with other specified complication E11.69 ; HTN (hypertension) I10 ; Mixed hyperlipidemia E78.2 ; Dyspnea on exertion R06.09 and Tobacco use Z72.0 [facility] [address] [place] [address] 74964- 9251 Dec, [facility] [id number] [place] [address] 76695- 3921 Dec, [facility] [address] [place] [address] 60363- 9480 Dec, Diabetes mellitus E11.9 ; HTN (hypertension) I10 ; Hypercholesteremia E78.0 ; Alcohol abuse F10.10 ; Proteinuria R80.9 ; Essential hypertension I10 ; Chronic hepatitis C with hepatic coma B18.2 ; Benign nodular prostatic hyperplasia with lower urinary tract symptoms N40.1 and Anemia D64.9 [facility] [id number] [place] [address] 33193- 3945 Jul, Epididymitis N45.1 and Testicle swelling N50.89 [facility] [address] 89184- 9898 Jul, Type 2 diabetes mellitus with other specified complication E11.69 ; Hypercholesteremia E78.0 ; Environmental allergies Z91.09 ; Erectile dysfunction N52.9 ; Alcohol abuse F10.10 ; Drug abuse and dependence F19.20 ; Epididymitis N45.1 ; Essential hypertension I10 and Chronic obstructive pulmonary disease, unspecified COPD type J44.9 [facility] [address] 84024- 8457 Jul, [place] [address] 77647- 1103 Jul, Epididymitis, left N45.1 [place] [address] 28079- 7349 February, Diabetes mellitus E11.9 [facility] [id number] [place] [address] 02045- 3532 Jan, Dental examination Z01.20 and Dental caries K02.9 [facility] [address] 30314- 0272 Jan, Type 2 diabetes mellitus with other specified complication E11.69 ; HTN (hypertension) I10 ; Hypercholesteremia E78.0 ; Alcohol abuse F10.10 ; Proteinuria R80.9 and Dental caries, unspecified K02.9 [facility] [id number] [place] [address] 65537- 0280 Dec, [facility] [id number] [place] [address] 96453- 8563 Dec, Sebaceous cyst L72.3 ; HTN (hypertension) I10 ; Hypercholesteremia E78.0 ; Proteinuria R80.9 and Anemia D64.9 [facility] [id number] [place] [address] 52032- 1567 Dec, Anemia D64.9 [facility] [address] 61519- 6774 Dec, Physical exam, pre-employment Z02.1 ; Drug abuse and dependence F19.20 ; UTI (urinary tract infection) N39.0 ; Proteinuria R80.9 ; Cellulitis L03.90 and Type 2 diabetes mellitus with other specified complication E11.[address] [address]- 1930 Nov, Type 2 diabetes mellitus with other specified complication E11.69 ; Hepatitis C 070.70 ; Proteinuria R80.9 ; Diabetes mellitus E11.9 ; HTN (hypertension) I10 ; Hypercholesteremia E78.0 ; Environmental allergies Z91.09 ; Erectile dysfunction N52.9 and Alcohol abuse F10.10 [place] [address] 26378- 8632 Oct, [facility] [address] [id number] Sep, Encounter for dental examination Z01.20 ; Dental examination Z01.20 and Dental caries K02.9 [facility] [id number] [place] [address] 01277- 0525 Aug, Tooth infection K04.[address] 10891- 5515 Aug, [place] [place] [id number] [place] [address] 21337- 7376 Jul, [place] [address] 21444- 0628 Jun, Shoulder pain 719.41 [facility] [address] [place] [address] 38717- 8676 Jun, Hepatitis C 070.70 [facility] [id number] [place] [address] 162415- 6222 Jun, Essential hypertension, benign 401.1 ; Psychosexual dysfunction with inhibited sexual excitement 302.72 ; Proteinuria 791.0 ; Unspecified viral hepatitis C without hepatic coma 070.70 ; Diabetes mellitus without mention of complication, type II or unspecified type, uncontrolled 250.02 ; Joint pain 719.40 ; Hepatitis C 070.70 and Hypercholesterolemia 272.0 [facility] [id number] [place] [address] 088287- 9824 Jun, [facility] [id number] [place] [address] 55013- 5561 Apr, [facility] [id number] [place] [address] 51926- 3768 Apr, [facility] [id number] [place] [address] 26103- 8106 Mar, [facility] [id number] [place] [address] 04651- 3530 14 Jan, 2015 [facility] [id number] [place] [address] 56245- 2819 Jan, [facility] [id number] [place] [address] [id number] [id number] Dec, [facility] [address] [place] [address] 75105- 3765 Dec, [facility] [id number] [place] [address] 686216- 9502 Dec, [facility] [id number] [place] [address] 30579- 7806 Dec, [facility] [id number] [place] [address] 71280- 1311 Jun, [facility] [place] [facility] [address] [id number] [place] [address]- 2595 Jun, [facility] [place] [facility] [address] [id number] [place] [address]- 3935 Jun, [facility] [place] [facility] [address] [id number] [place] [address]- 9539 Jun, [facility] [place] [facility] [address] [id number] [place] [address]- 8337 February, [facility] [place] [facility] [address] [id number] [place] [address]- 5334 February, [facility] [place] [facility] [address] [id number] [place] [address]- 4500 February, [facility] [place] [facility] [address] [id number] [place] [address]- 4675 February, [facility] [place] [facility] [address] [id number] [place] [address]- 6811 February, [facility] [place] [facility] [address] [id number] [place] [address]- 9299 Dec, [facility] [place] [facility] [address] [id number] [place] [address]- 4383 Dec, [facility] [place] [facility] [address] [id number] [place] [address]- 5902 Oct, [facility] [place] [facility] [address] [id number] [place] [address]- 6566 Oct, [facility] [place] [facility] [address] [id number] [place] [address]- 9329 Sep, [facility] [place] [facility] [address] [id number] [place] [address]- 9286 Sep, [facility] [place] [facility] [address] [id number] [place] [address]- 6137 Jul, [facility] [place] [facility] [address] [id number] [place] [address]- 1261 Jul, [facility] [address] [id number] [place] [address]- 8017 15 Jul, 2013 [facility] [address] [id number] [place] [address]- 5624 15 Jul, 2013 [facility] [address] [id number] [place] [address]- 1797 Jun, [facility] [address] [id number] [place] [address]- 1409 Jun, [facility] [address] [id number] [place] [address]- 4603 Apr, [facility] [address] [id number] [place] [address]- 9245 Apr, [facility] [address] [id number] [place] [address]- 7254 Mar, [facility] [address] [id number] [place] [address]- 9732 February, [facility] [address] [id number] [place] [address]- 1115 February, [facility] [address] [id number] [place] [address]- 1598 February, [facility] [address] [id number] [place] [address]- 6019 February, [facility] [address] [id number] [place] [address]- 0325 February, [facility] [address] [id number] [place] [address]- 6703 February, [facility] [address] [id number] [place] [address]- 4174 February, [facility] [address] [id number] [place] [address]- 2430 February, [facility] [address] [id number] [place] [address]- 6976 Dec, [facility] [place] [facility] [address] [id number] [place] [address]- 3006 Nov, 2012 [facility] [place] [facility] [address] [id number] [place] [address]- 2546 Nov, 2012 [facility] [place] [facility] [address] [id number] [place] [address]- 6736 Nov, [facility] [place] [facility] [address] [id number] [place] [address]- 1521 Oct, [facility] [place] [facility] [address] [id number] [place] [address]- 2031 Sep, [facility] [address] [id number] [place]- [address]124 Sep, [facility] [address] [id number] [place] [address]- 6667 Sep, [facility] [place] [facility] [address] [id number] [place] [address]- 0763 Sep, [facility] [address] [id number] [place] [address]- 6446 Sep, [facility] [place] [facility] [address] [id number] [place] [address]- 4463 Sep, [facility] [place] [facility] [address] [id number] [place] [address]- 5593 Sep, [facility] [place] [facility] [address] [id number] [place] [address]- 4517 Sep, [facility] [place] [facility] [address] [id number] [place] [address]- 5086 Sep, [facility] [place] [facility] [address] [id number] [place] [address]- 3005 Sep, [facility] [place] [facility] [address] [id number] [place] [address] 2546 Sep, [facility] [address] [facility] [id number] [place] [address]- 2546 Sep, [facility] [address] [facility] [id number] [place] [address]- 2546 Aug, IMMUNIZATIONS No Known Immunizations SOCIAL HISTORY Never Assessed REASON FOR VISIT E[place] [place] CARE VITAL SIGNS MEDICATIONS No Known Medications RESULTS No Results PROCEDURES No Known [...] Iron Def. Anemia, Chest pain, DM type 2-[facility] 2616 Hospitalization History Chest pain, illicit drug use-[facility] 03/21/2018
--- OUTSIDE RECORDS SUMMARY | 2019-02-11 12:52 | XMS REPORT ---
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
--- OUTSIDE RECORDS SUMMARY | 2019-02-11 12:53 | XMS REPORT ---
Author Author Migration, Doctor Organization [facility] Address Unknown Phone Unavailable Care Team Providers Care Air Hammer Operator Name Role Phone Migration, Doctor Unavailable Unavailable PROBLEMS Type Condition ICD9-CM Code NFY87-VP Code Onset Dates Condition Status SNOMED Code Problem Type 2 diabetes mellitus with other specified complication E11.69 Active [id number] Problem HTN (hypertension) I10 Active 53943223 Problem Drug abuse and dependence F19.20 Active 1829682 Problem Erectile dysfunction N52.9 Active 231441457 Problem Essential hypertension I10 Active 62178325 Problem Dental caries, unspecified K02.9 Active 75281527 Problem Epididymitis N45.1 Active 62544406 Problem Anemia D64.9 Active 383391763 Problem Chronic obstructive pulmonary disease, unspecified COPD type J44.9 Active 57109208 Problem Iron deficiency anemia due to chronic blood loss D50.0 Active 74104241 Problem Hypercholesteremia E78.0 Active 062094446 Problem Pure hypercholesterolemia, unspecified E78.00 Active 270932401 Problem Chronic fatigue R53.82 Active 79321524 Problem 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 Active 5572757474669 Problem Environmental allergies Z91.09 Active 923053709 Problem Other male erectile dysfunction N52.8 Active 435013310 Problem Mixed hyperlipidemia E78.2 Active 754319720 Problem Alcohol abuse F10.10 Active 73954314 Problem Proteinuria R80.9 Active 64898001 Problem Chronic hepatitis C without hepatic coma B18.2 Active 018001844 Problem Benign prostatic hyperplasia without lower urinary tract symptoms N40.0 Active 111050685 Problem Other iron deficiency anemia D50.8 Active 06689593 Problem Sexual dysfunction R37 Active 49709733 ALLERGIES No Information ENCOUNTERS Encounter Location Date Diagnosis [facility] [address] [address] Jul, Chronic fatigue R53.82 and Acute non-recurrent maxillary sinusitis J01.00 [facility] [address], [place] [address] Apr, Essential hypertension I10 [facility] [id number] [place] [address] 56453- 0431 Mar, Essential hypertension I10 [facility] [id number] [place] [address] 60685- 6820 Mar, [facility] [id number] [place] [address] 05609- 5731 Jan, Sebaceous cyst L72.3 [facility] [id number] [place] [address] 13639- 4581 Jan, [facility] [id number] [place] [address] 50978- 9665 Jan, [facility] [id number] [place] [address] 80753- 3698 Jan, Type 2 diabetes mellitus with other [...] anemia due to chronic blood loss D50.0 [facility] [id number] [place] [address] 23680- 0679 Nov, Dental caries K02.9 [facility] [id number] [place] [address] [id number] Nov, Dental caries K02.9 [facility] [id number] [place] [address] 10989- 6539 Oct, HTN (hypertension) I10 [facility] [id number] [place] [address] 99541- 0851 Sep, Type 2 diabetes mellitus with other specified complication E11.69 [facility] [address] [place] [address] 4[address] Sep, [facility] [id number] [place] [address] 32074- 9343 Aug, HTN (hypertension) I10 ; Type 2 diabetes mellitus with other specified complication E11.69 ; Benign prostatic hyperplasia without lower urinary tract symptoms N40.0 and Other iron deficiency anemia D50.8 [facility] [id number] [place] [address] [id number] Aug, [facility] [id number] [place] [address] [phone] Aug, [facility] [address] [id number] Jul, Dental examination Z01.20 [place] [address] 06347- 3979 Jul, Type 2 diabetes mellitus with other specified complication E11.69 [place] [address] [address]75- 7850 May, [place] [address] 42674- 4713 Apr, Type 2 diabetes mellitus with other specified complication E11.69 ; Proteinuria R80.9 ; HTN (hypertension) I10 ; Erectile dysfunction N52.9 ; Chronic obstructive pulmonary disease, unspecified COPD type J44.9 ; Chronic hepatitis C without hepatic coma B18.2 ; 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 ; Iron deficiency anemia due to chronic blood loss D50.0 and Hypercholesteremia E78.0 [place] [id number] [place] [address] 90237- 8340 Mar, Diabetes mellitus E11.9 ; Hypercholesteremia E78.0 and Type 2 diabetes mellitus with other specified complication E11.69 [facility] [id number] [place] [address] 63924- 0400 Mar, [place] [address] 80803- 7504 Mar, Iron deficiency anemia due to chronic blood loss D50.0 [place] [place] [id number] [place] [address] 05878- 6767 Mar, Type 2 diabetes mellitus with other specified complication E11.69 and Iron deficiency anemia due to chronic blood loss D50.0 [facility] [facility] [address] [address] 359[address] Mar, Iron deficiency anemia due to chronic blood loss D50.0 [place] [id number] [place] [address] 71942- 5148 February, [place] [facility] [id number] [place] [address] 23966- 8941 February, Iron deficiency anemia due to chronic blood loss D50.0 [facility] [id number] [place] [address] 74899- 3130 February, [place] [id number] [place] [address] 01178- 0304 February, Anemia D64.9 [facility] [id number] [place] [address] 84942- 0712 February, Anemia D64.9 and 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 [facility] [address], [place] [address] 110[address] Jan, Chest discomfort R07.89 ; Type 2 diabetes mellitus with other specified complication E11.69 ; HTN (hypertension) I10 ; Mixed hyperlipidemia E78.2 ; Dyspnea on exertion R06.09 and Tobacco use Z72.0 [place] [facility] [address] [place] [address] 92161- 1715 Dec, [place] [id number] [place] [address] 61254- 3863 Dec, [place] [address] [place] [address] 52747- 6149 Dec, Diabetes mellitus E11.9 ; HTN (hypertension) I10 ; Hypercholesteremia E78.0 ; Alcohol abuse F10.10 ; Proteinuria R80.9 ; Essential hypertension I10 ; Chronic hepatitis C with hepatic coma B18.2 ; Benign nodular prostatic hyperplasia with lower urinary tract symptoms N40.1 and Anemia D64.9 [place] [id number] [place] [address] 04425- 8766 Jul, Epididymitis N45.1 and Testicle swelling N50.89 [place] [facility] [address] 47405- 7088 Jul, Type 2 diabetes mellitus with other specified complication E11.69 ; Hypercholesteremia E78.0 ; Environmental allergies Z91.09 ; Erectile dysfunction N52.9 ; Alcohol abuse F10.10 ; Drug abuse and dependence F19.20 ; Epididymitis N45.1 ; Essential hypertension I10 and Chronic obstructive pulmonary disease, unspecified COPD type J44.9 [place] [address] 63404- 2443 Jul, [place] [address] 04452- 6313 Jul, Epididymitis, left N45.1 [place] [address] 54039- 8261 February, Diabetes mellitus E11.9 [place] [id number] [place] [address] 60257- 9408 Jan, Dental examination Z01.20 and Dental caries K02.9 [place] [address] 68577- 3570 Jan, Type 2 diabetes mellitus with other specified complication E11.69 ; HTN (hypertension) I10 ; Hypercholesteremia E78.0 ; Alcohol abuse F10.10 ; Proteinuria R80.9 and Dental caries, unspecified K02.9 [place] [id number] [place] [address] 47300- 6338 Dec, [place] [id number] [place] [address] 87197- 0741 Dec, Sebaceous cyst L72.3 ; HTN (hypertension) I10 ; Hypercholesteremia E78.0 ; Proteinuria R80.9 and Anemia D64.9 [place] [id number] [place] [address] 87304- 7911 Dec, Anemia D64.9 [place] [address] 07802- 9095 Dec, Physical exam, pre-employment Z02.1 ; Drug abuse and dependence F19.20 ; UTI (urinary tract infection) N39.0 ; Proteinuria R80.9 ; Cellulitis L03.90 and Type 2 diabetes mellitus with other specified complication E11.[address] [address]772- 3849 Nov, Type 2 diabetes mellitus with other specified complication E11.69 ; Hepatitis C 070.70 ; Proteinuria R80.9 ; Diabetes mellitus E11.9 ; HTN (hypertension) I10 ; Hypercholesteremia E78.0 ; Environmental allergies Z91.09 ; Erectile dysfunction N52.9 and Alcohol abuse F10.10 [place] [address] 24953- 2835 Oct, [facility] [address] [id number] Sep, Encounter for dental examination Z01.20 ; Dental examination Z01.20 and Dental caries K02.9 [place] [id number] [place] [address] 94892- 4950 Aug, Tooth infection K04.[address] 32982- 9333 Aug, [place] [id number] [place] [address] 13246- 4854 Jul, [place] [address] 53920- 6085 Jun, Shoulder pain 719.41 [facility] [address] [place] [address] 43890- 7443 Jun, Hepatitis C 070.70 [facility] [id number] [place] [address] 013000- 1044 Jun, Essential hypertension, benign 401.1 ; Psychosexual dysfunction with inhibited sexual excitement 302.72 ; Proteinuria 791.0 ; Unspecified viral hepatitis C without hepatic coma 070.70 ; Diabetes mellitus without mention of complication, type II or unspecified type, uncontrolled 250.02 ; Joint pain 719.40 ; Hepatitis C 070.70 and Hypercholesterolemia 272.0 [facility] [id number] [place] [address] 388256- 7533 Jun, [facility] [id number] [place] [address] 10567- 0410 Apr, [facility] [id number] [place] [address] 65250- 2965 Apr, [facility] [id number] [place] [address] 06400- 5347 Mar, [facility] [id number] [place] [address] 17153- 6258 14 Jan, 2015 [facility] [id number] [place] [address] 00964- 2100 Jan, [facility] [id number] [place] [address] [id number]- 7684 Dec, [facility] [id number] [place] [address] 06169- 9329 Dec, [facility] [id number] [place] [address] 407697- 0682 Dec, [facility] [id number] [place] [address] 00389- 1226 Dec, [facility] [id number] [place] [address] 63116- 4584 Jun, [facility] [place] [facility] [address] [id number] [place] [address]- 7361 Jun, [facility] [place] [facility] [address] [id number] [place] [address]- 3556 Jun, [facility] [place] [facility] [address] [id number] [place] [address]- 0682 Jun, [facility] [place] [facility] [address] [id number] [place] [address]- 5398 February, [facility] [place] [facility] [address] [id number] [place] [address]- 8557 February, [facility] [place] [facility] [address] [id number] [place] [address]- 9907 February, [facility] [place] [facility] [address] [id number] [place] [address]- 0341 February, [facility] [place] [facility] [address] [id number] [place] [address]- 6798 February, [facility] [place] [facility] [address] [id number] [place] [address]- 4785 Dec, [facility] [place] [facility] [address] [id number] [place] [address]- 8086 Dec, [facility] [place] [facility] [address] [id number] [place] [address]- 9230 Oct, [facility] [place] [facility] [address] [id number] [place] [address]- 5704 Oct, [facility] [place] [facility] [address] [id number] [place] [address]- 0751 Sep, [facility] [place] [facility] [address] [id number] [place] [address]- 9046 Sep, [facility] [place] [facility] [address] [id number] [place] [address]- 2904 Jul, [facility] [place] [facility] [address] [id number] [place] [address]- 1391 Jul, [facility] [address] [id number] [place] [address]- 4207 15 Jul, 2013 [facility] [address] [id number] [place] [address]- 7156 15 Jul, 2013 [facility] [address] [id number] [place] [address]- 0174 Jun, [facility] [address] [id number] [place] [address]- 8086 Jun, [facility] [address] [id number] [place] [address]- 4553 Apr, [facility] [address] [id number] [place] [address]- 1970 Apr, [facility] [address] [id number] [place] [address]- 0933 Mar, [facility] [address] [id number] [place] [address]- 8639 February, [facility] [address] [id number] [place] [address]- 0118 February, [facility] [address] [id number] [place] [address]- 0199 February, [facility] [address] [id number] [place] [address]- 2143 February, [facility] [address] [id number] [place] [address]- 8935 February, [facility] [address] [id number] [place] [address]- 4400 February, [facility] [address] [id number] [place] [address]- 7150 February, [facility] [address] [id number] [place] [address]- 9316 February, [facility] [address] [id number] [place] [address]- 4138 Dec, [facility] [place] [facility] [address] [id number] [place] [address]- 0896 Nov, 2012 [facility] [place] [facility] [address] [id number] [place] [address]- 2546 Nov, 2012 [facility] [place] [facility] [address] [id number] [place] [address]- 9456 Nov, [facility] [place] [facility] [address] [id number] [place] [address]- 4754 Oct, [facility] [place] [facility] [address] [id number] [place] [address]- 0141 Sep, [facility] [address] [id number] [place] [address]88 Sep, [facility] [address] [id number] [place] [address]- 2388 Sep, [facility] [place] [facility] [address] [id number] [place] [address]- 6491 Sep, [facility] [address] [id number] [place] [address]- 2719 Sep, [facility] [place] [facility] [address] [id number] [place] [address]- 6546 Sep, [facility] [place] [facility] [address] [id number] [place] [address]- 9679 Sep, [facility] [place] [facility] [address] [id number] [place] [address]- 3595 Sep, [facility] [place] [facility] [address] [id number] [place] [address]- 2086 Sep, [facility] [place] [facility] [address] [id number] [place] [address]- 9226 Sep, [facility] [place] [facility] [address] [id number] [place] [address] 2546 Sep, [facility] [address] [facility] [id number] [place] [address]- 2546 Sep, [facility] [address] [facility] [id number] [place] [address]- 2546 Aug, IMMUNIZATIONS No Known Immunizations SOCIAL HISTORY Never Assessed REASON FOR VISIT EMR-[facility] [place] PLAN OF CARE VITAL SIGNS MEDICATIONS No [...] Iron Def. Anemia, Chest pain, DM type 2-[facility] 2616 Hospitalization History Chest pain, illicit drug use-[facility] 03/21/2018
--- OUTSIDE RECORDS SUMMARY | 2019-02-11 12:53 | XMS REPORT ---
Author Author Migration, Doctor Organization [facility] Address Unknown Phone Unavailable Care Team Providers Care Legal Research Analyst Name Role Phone Migration, Doctor Unavailable Unavailable PROBLEMS Type Condition ICD9-CM Code MNC41-AB Code Onset Dates Condition Status SNOMED Code Problem Type 2 diabetes mellitus with other specified complication E11.69 Active [id number] Problem HTN (hypertension) I10 Active 34876715 Problem Drug abuse and dependence F19.20 Active 8354598 Problem Erectile dysfunction N52.9 Active 519477177 Problem Essential hypertension I10 Active 38004777 Problem Dental caries, unspecified K02.9 Active 17196695 Problem Epididymitis N45.1 Active 71080177 Problem Anemia D64.9 Active 480134254 Problem Chronic obstructive pulmonary disease, unspecified COPD type J44.9 Active 40317059 Problem Iron deficiency anemia due to chronic blood loss D50.0 Active 63658701 Problem Hypercholesteremia E78.0 Active 292507188 Problem Pure hypercholesterolemia, unspecified E78.00 Active 761458781 Problem Chronic fatigue R53.82 Active 53854791 Problem 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 Active 6884118657658 Problem Environmental allergies Z91.09 Active 319067716 Problem Other male erectile dysfunction N52.8 Active 655394790 Problem Mixed hyperlipidemia E78.2 Active 381861441 Problem Alcohol abuse F10.10 Active 50905456 Problem Proteinuria R80.9 Active 37258896 Problem Chronic hepatitis C without hepatic coma B18.2 Active 454786715 Problem Benign prostatic hyperplasia without lower urinary tract symptoms N40.0 Active 772558431 Problem Other iron deficiency anemia D50.8 Active 21477866 Problem Sexual dysfunction R37 Active 00490112 ALLERGIES No Information ENCOUNTERS Encounter Location Date Diagnosis [facility] [address], [place] [address] Jul, Chronic fatigue R53.82 and Acute non-recurrent maxillary sinusitis J01.00 [facility] [address], [place] [address] Apr, Essential hypertension I10 [facility] [id number] [place] [address] 44061- 2400 Mar, Essential hypertension I10 [facility] [id number] [place] [address] 79791- 7345 Mar, [facility] [id number] [place] [address] 88987- 7229 Jan, Sebaceous cyst L72.3 [facility] [id number] [place] [address] 68207- 5593 Jan, [facility] [id number] [place] [address] 04828- 2829 Jan, [facility] [id number] [place] [address] 48238- 1800 Jan, Type 2 diabetes mellitus with other [...] anemia due to chronic blood loss D50.0 [facility] [address] [place] [address] 85359- 8781 Nov, Dental caries K02.[address] [facility] [id number] [place] [address] [id number] Nov, Dental caries K02.9 [facility] [id number] [place] [address] 40683- 8276 Oct, HTN (hypertension) I10 [facility] [address] [place] [address] 11140- 4543 Sep, Type 2 diabetes mellitus with other specified complication E11.69 [facility] [address] [place] [address] Sep, [facility] [id number] [place] [address] 08594- 6591 Aug, HTN (hypertension) I10 ; Type 2 diabetes mellitus with other specified complication E11.69 ; Benign prostatic hyperplasia without lower urinary tract symptoms N40.0 and Other iron deficiency anemia D50.[address] [facility] [id number] [place] [address] [id number] Aug, [facility] [id number] [place] [address] [phone] Aug, 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 ; Iron deficiency anemia due to chronic blood loss D50.0 and Hypercholesteremia E78.0 [facility] [id number] [place] [address] 60217- 9475 Mar, Diabetes mellitus E11.9 ; Hypercholesteremia E78.0 and Type 2 diabetes mellitus with other specified complication E11.69 [facility] [id number] [place] [address] 79118- 0834 Mar, [facility] [address] 24715- 1662 Mar, Iron deficiency anemia due to chronic blood loss D50.0 [facility] [address] [place] [address] 78041- 3899 Mar, Type 2 diabetes mellitus with other specified complication E11.69 and Iron deficiency anemia due to chronic blood loss D50.0 [facility] [address], [place] [address] 1732 Mar, Iron deficiency anemia due to chronic blood loss D50.0 [facility] [id number] [place] [address] 19329- 6714 February, [facility] [id number] [place] [address] 69387- 3573 February, Iron deficiency anemia due to chronic blood loss D50.0 [facility] [id number] [place] [address] 69415- 5955 February, [facility] [id number] [place] [address] 98080- 7611 February, Anemia D64.9 [facility] [id number] [place] [address] 16147- 3768 February, Anemia D64.9 and 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 [facility] [address], [place] [address] 8[address] Jan, Chest discomfort R07.89 ; Type 2 diabetes mellitus with other specified complication E11.69 ; HTN (hypertension) I10 ; Mixed hyperlipidemia E78.2 ; Dyspnea on exertion R06.09 and Tobacco use Z72.0 [facility] [address] [place] [address] 69733- 5984 Dec, [facility] [id number] [place] [address] 48216- 8587 Dec, [facility] [address] [place] [address] 03679- 0547 Dec, Diabetes mellitus E11.9 ; HTN (hypertension) I10 ; Hypercholesteremia E78.0 ; Alcohol abuse F10.10 ; Proteinuria R80.9 ; Essential hypertension I10 ; Chronic hepatitis C with hepatic coma B18.2 ; Benign nodular prostatic hyperplasia with lower urinary tract symptoms N40.1 and Anemia D64.9 [facility] [id number] [place] [address] 83879- 4580 Jul, Epididymitis N45.1 and Testicle swelling N50.89 [facility] [address] 28510- 2051 Jul, Type 2 diabetes mellitus with other specified complication E11.69 ; Hypercholesteremia E78.0 ; Environmental allergies Z91.09 ; Erectile dysfunction N52.9 ; Alcohol abuse F10.10 ; Drug abuse and dependence F19.20 ; Epididymitis N45.1 ; Essential hypertension I10 and Chronic obstructive pulmonary disease, unspecified COPD type J44.9 [facility] [address] 22831- 1228 Jul, [facility] [address] 04743- 7907 Jul, Epididymitis, left N45.1 [facility] [address] 73107- 2903 February, Diabetes mellitus E11.9 [facility] [id number] [place] [address] 94060- 1145 Jan, Dental examination Z01.20 and Dental caries K02.9 [facility] [address] 68512- 7376 Jan, Type 2 diabetes mellitus with other specified complication E11.69 ; HTN (hypertension) I10 ; Hypercholesteremia E78.0 ; Alcohol abuse F10.10 ; Proteinuria R80.9 and Dental caries, unspecified K02.9 [facility] [id number] [place] [address] 53330- 4891 Dec, [facility] [id number] [place] [address] 56908- 2504 Dec, Sebaceous cyst L72.3 ; HTN (hypertension) I10 ; Hypercholesteremia E78.0 ; Proteinuria R80.9 and Anemia D64.9 [facility] [id number] [place] [address] 99509- 6132 Dec, Anemia D64.9 [facility] [address] 35561- 5646 Dec, Physical exam, pre-employment Z02.1 ; Drug abuse and dependence F19.20 ; UTI (urinary tract infection) N39.0 ; Proteinuria R80.9 ; Cellulitis L03.90 and Type 2 diabetes mellitus with other specified complication E11.[address] [address]47- 4669 Nov, Type 2 diabetes mellitus with other specified complication E11.69 ; Hepatitis C 070.70 ; Proteinuria R80.9 ; Diabetes mellitus E11.9 ; HTN (hypertension) I10 ; Hypercholesteremia E78.0 ; Environmental allergies Z91.09 ; Erectile dysfunction N52.9 and Alcohol abuse F10.10 [facility] [address] 25886- 9261 Oct, [facility] [address] [id number] Sep, Encounter for dental examination Z01.20 ; Dental examination Z01.20 and Dental caries K02.9 [facility] [id number] [place] [address] 00806- 8763 Aug, Tooth infection K04.[address] 83991- 9041 Aug, [facility] [id number] [place] [address] 67166- 5057 Jul, [facility] [address] 97705- 6632 Jun, Shoulder pain 719.41 [facility] [address] [place] [address] 52382- 2081 Jun, Hepatitis C 070.70 [facility] [id number] [place] [address] 875534- 3553 Jun, Essential hypertension, benign 401.1 ; Psychosexual dysfunction with inhibited sexual excitement 302.72 ; Proteinuria 791.0 ; Unspecified viral hepatitis C without hepatic coma 070.70 ; Diabetes mellitus without mention of complication, type II or unspecified type, uncontrolled 250.02 ; Joint pain 719.40 ; Hepatitis C 070.70 and Hypercholesterolemia 272.0 [facility] [id number] [place] [address] 457625- 7899 Jun, [facility] [id number] [place] [address] 84017- 6119 Apr, [facility] [id number] [place] [address] 15344- 6545 Apr, [facility] [id number] [place] [address] 70334- 5381 Mar, [facility] [id number] [place] [address] 41641- 9733 14 Jan, 2015 [facility] [id number] [place] [address] 67026- 7734 Jan, [facility] [id number] [place] [address] [id number]- 0770 Dec, [facility] [address] [place] [address] 01260- 0989 Dec, [facility] [id number] [place] [address] 101609- 3354 Dec, [facility] [id number] [place] [address] 88830- 8726 Dec, [facility] [id number] [place] [address] 94382- 3334 Jun, [facility] [place] [facility] [address] [id number] [place] [address]- 5167 Jun, [facility] [place] [facility] [address] [id number] [place] [address]- 3816 Jun, [facility] [place] [facility] [address] [id number] [place] [address]- 3479 Jun, [facility] [place] [facility] [address] [id number] [place] [address]- 4331 February, [facility] [place] [facility] [address] [id number] [place] [address]- 8316 February, [facility] [place] [facility] [address] [id number] [place] [address]- 7802 February, [facility] [place] [facility] [address] [id number] [place] [address]- 1118 February, [facility] [place] [facility] [address] [id number] [place] [address]- 8838 February, [facility] [place] [facility] [address] [id number] [place] [address]- 7529 Dec, [facility] [place] [facility] [address] [id number] [place] [address]- 1841 Dec, [facility] [place] [facility] [address] [id number] [place] [address]- 3832 Oct, [facility] [place] [facility] [address] [id number] [place] [address]- 4005 Oct, [facility] [place] [facility] [address] [id number] [place] [address]- 0111 Sep, [facility] [place] [facility] [address] [id number] [place] [address]- 2806 Sep, [facility] [place] [facility] [address] [id number] [place] [address]- 2228 Jul, [facility] [place] [facility] [address] [id number] [place] [address]- 4311 Jul, [facility] [address] [id number] [place] [address]- 6183 15 Jul, 2013 [facility] [address] [id number] [place] [address]- 7915 15 Jul, 2013 [facility] [address] [id number] [place] [address]- 8473 Jun, [facility] [address] [id number] [place] [address]- 5062 Jun, [facility] [address] [id number] [place] [address]- 2870 Apr, [facility] [address] [id number] [place] [address]- 2836 Apr, [facility] [address] [id number] [place] [address]- 0975 Mar, [facility] [address] [id number] [place] [address]- 0134 February, [facility] [address] [id number] [place] [address]- 8025 February, [facility] [address] [id number] [place] [address]- 2198 February, [facility] [address] [id number] [place] [address]- 3342 February, [facility] [address] [id number] [place] [address]- 5233 February, [facility] [address] [id number] [place] [address]- 3453 February, [facility] [address] [id number] [place] [address]- 2263 February, [facility] [address] [id number] [place] [address]- 2065 February, [facility] [address] [id number] [place] [address]- 5156 Dec, [facility] [place] [facility] [address] [id number] [place] [address]- 8316 Nov, 2012 [facility] [place] [facility] [address] [id number] [place] [address]- 2546 Nov, 2012 [facility] [place] [facility] [address] [id number] [place] [address]- 0466 Nov, [facility] [place] [facility] [address] [id number] [place] [address]- 5068 Oct, [facility] [place] [facility] [address] [id number] [place] [address]- 4903 Sep, [facility] [address] [id number] [place] [address] Sep, [facility] [address] [id number] [place] [address]- 2087 Sep, [facility] [place] [facility] [address] [id number] [place] [address]- 1002 Sep, [facility] [address] [id number] [place] [address]- 0232 Sep, [facility] [place] [facility] [address] [id number] [place] [address]- 2958 Sep, [facility] [place] [facility] [address] [id number] [place] [address]- 1994 Sep, [facility] [place] [facility] [address] [id number] [place] [address]- 4050 Sep, [facility] [place] [facility] [address] [id number] [place] [address]- 3546 Sep, [facility] [place] [facility] [address] [id number] [place] [address]- 2813 Sep, [facility] [place] [facility] [address] [id number] [place] [address] 2546 Sep, [facility] [address] [facility] [id number] [place] [address]- 2546 Sep, [facility] [address] [facility] [id number] [place] [address]- 2546 Aug, IMMUNIZATIONS No Known Immunizations SOCIAL HISTORY Never Assessed REASON FOR VISIT EMR-[facility] PLAN OF CARE VITAL SIGNS MEDICATIONS No [...] Iron Def. Anemia, Chest pain, DM type 2-[facility] 2616 Hospitalization History Chest pain, illicit drug use-[facility] 03/21/2018
--- OUTSIDE RECORDS SUMMARY | 2019-02-11 12:53 | XMS REPORT ---
Author Author Migration, Doctor Organization [facility] Address Unknown Phone Unavailable Care Team Providers Care Rn Forensic Name Role Phone Migration, Doctor Unavailable Unavailable PROBLEMS Type Condition ICD9-CM Code NNV75-YE Code Onset Dates Condition Status SNOMED Code Problem Type 2 diabetes mellitus with other specified complication E11.69 Active [id number] Problem HTN (hypertension) I10 Active 23206388 Problem Drug abuse and dependence F19.20 Active 4380573 Problem Erectile dysfunction N52.9 Active 679092540 Problem Essential hypertension I10 Active 73058520 Problem Dental caries, unspecified K02.9 Active 88648779 Problem Epididymitis N45.1 Active 73318603 Problem Anemia D64.9 Active 748207995 Problem Chronic obstructive pulmonary disease, unspecified COPD type J44.9 Active 26948449 Problem Iron deficiency anemia due to chronic blood loss D50.0 Active 65602274 Problem Hypercholesteremia E78.0 Active 864571075 Problem Pure hypercholesterolemia, unspecified E78.00 Active 035913791 Problem Chronic fatigue R53.82 Active 85395806 Problem 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 Active 5850411718045 Problem Environmental allergies Z91.09 Active 737579419 Problem Other male erectile dysfunction N52.8 Active 295003230 Problem Mixed hyperlipidemia E78.2 Active 559729399 Problem Alcohol abuse F10.10 Active 42769673 Problem Proteinuria R80.9 Active 18094181 Problem Chronic hepatitis C without hepatic coma B18.2 Active 399788305 Problem Benign prostatic hyperplasia without lower urinary tract symptoms N40.0 Active 644871932 Problem Other iron deficiency anemia D50.8 Active 96251058 Problem Sexual dysfunction R37 Active 30326234 ALLERGIES No Information ENCOUNTERS Encounter Location Date Diagnosis [facility] [address], [place] [address] Jul, Chronic fatigue R53.82 and Acute non-recurrent maxillary sinusitis J01.00 [facility] [address], [place] [address] Apr, Essential hypertension I10 [facility] [id number] [place] [address] 24481- 0401 Mar, Essential hypertension I10 [facility] [id number] [place] [address] 14867- 7688 Mar, [facility] [id number] [place] [address] 39808- 0299 Jan, Sebaceous cyst L72.3 [facility] [id number] [place] [address] 70208- 0343 Jan, [facility] [id number] [place] [address] 45440- 9040 Jan, [facility] [id number] [place] [address] 14061- 9918 Jan, Type 2 diabetes mellitus with other [...] anemia due to chronic blood loss D50.0 [facility] [id number] [place] [address] 98326- 6110 Nov, Dental caries K02.9 [facility] [id number] [place] [address] [id number] Nov, Dental caries K02.9 [facility] [id number] [place] [address] 36392- 3353 Oct, HTN (hypertension) I10 [facility] [id number] [place] [address] 23805- 2544 Sep, Type 2 diabetes mellitus with other specified complication E11.69 [facility] [address] [place] [address] Sep, [facility] [id number] [place] [address] 74202- 5263 Aug, HTN (hypertension) I10 ; Type 2 diabetes mellitus with other specified complication E11.69 ; Benign prostatic hyperplasia without lower urinary tract symptoms N40.0 and Other iron deficiency anemia D50.8 [facility] [id number] [place] [address] [id number] Aug, [facility] [id number] [place] [address] [id number] Aug, [facility] [address] [id number] Jul, Dental examination Z01.20 [facility] [address] [address]- [address]240 Jul, Type 2 diabetes mellitus with other specified complication E11.69 [facility] [address] 43894- 3310 May, [facility] [address] 8[address]92- 2837 Apr, Type 2 diabetes mellitus with other specified complication E11.69 ; Proteinuria R80.9 ; HTN (hypertension) I10 ; Erectile dysfunction N52.9 ; Chronic obstructive pulmonary disease, unspecified COPD type J44.9 ; Chronic hepatitis C without hepatic coma B18.2 ; 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 ; Iron deficiency anemia due to chronic blood loss D50.0 and Hypercholesteremia E78.0 [facility] [id number] [place] [address] 03659- 5878 Mar, Diabetes mellitus E11.9 ; Hypercholesteremia E78.0 and Type 2 diabetes mellitus with other specified complication E11.69 [facility] [id number] [place] [address] 66460- 3987 Mar, [facility] [address] 25261- 0650 Mar, Iron deficiency anemia due to chronic blood loss D50.0 [facility] [id number] [place] [address] 02076- 4922 Mar, Type 2 diabetes mellitus with other specified complication E11.69 and Iron deficiency anemia due to chronic blood loss D50.0 [facility] [address], [place] [address] Mar, Iron deficiency anemia due to chronic blood loss D50.0 [facility] [id number] [place] [address] 99144- 3574 February, [facility] [id number] [place] [address] 56054- 6153 February, Iron deficiency anemia due to chronic blood loss D50.0 [facility] [id number] [place] [address] 89585- 8388 February, [facility] [id number] [place] [address] 99365- 4344 February, Anemia D64.9 [facility] [id number] [place] [address] 75194- 3904 February, Anemia D64.9 and 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 [facility] [address], [place] [address] Jan, Chest discomfort R07.89 ; Type 2 diabetes mellitus with other specified complication E11.69 ; HTN (hypertension) I10 ; Mixed hyperlipidemia E78.2 ; Dyspnea on exertion R06.09 and Tobacco use Z72.0 [facility] [id number] [place] [address] 78107- 8009 Dec, [facility] [id number] [place] [address] 26901- 3145 Dec, [facility] [id number] [place] [address] 24625- 8865 Dec, Diabetes mellitus E11.9 ; HTN (hypertension) I10 ; Hypercholesteremia E78.0 ; Alcohol abuse F10.10 ; Proteinuria R80.9 ; Essential hypertension I10 ; Chronic hepatitis C with hepatic coma B18.2 ; Benign nodular prostatic hyperplasia with lower urinary tract symptoms N40.1 and Anemia D64.9 [facility] [id number] [place] [address] 20609- 7542 Jul, Epididymitis N45.1 and Testicle swelling N50.89 [facility] [address] 8[address]97- 5157 Jul, Type 2 diabetes mellitus with other specified complication E11.69 ; Hypercholesteremia E78.0 ; Environmental allergies Z91.09 ; Erectile dysfunction N52.9 ; Alcohol abuse F10.10 ; Drug abuse and dependence F19.20 ; Epididymitis N45.1 ; Essential hypertension I10 and Chronic obstructive pulmonary disease, unspecified COPD type J44.9 [facility] [address] 02094- 4667 Jul, [facility] [address] 94076- 8943 Jul, Epididymitis, left N45.1 [facility] [address] 55064- 9258 February, Diabetes mellitus E11.9 [facility] [id number] [place] [address] 90914- 7296 Jan, Dental examination Z01.20 and Dental caries K02.9 [facility] [address] 80028- 1720 Jan, Type 2 diabetes mellitus with other specified complication E11.69 ; HTN (hypertension) I10 ; Hypercholesteremia E78.0 ; Alcohol abuse F10.10 ; Proteinuria R80.9 and Dental caries, unspecified K02.9 [facility] [id number] [place] [address] 97292- 7446 Dec, [facility] [id number] [place] [address] 83988- 1995 Dec, Sebaceous cyst L72.3 ; HTN (hypertension) I10 ; Hypercholesteremia E78.0 ; Proteinuria R80.9 and Anemia D64.9 [facility] [id number] [place] [address] 35568- 3694 Dec, Anemia D64.9 [facility] [address] 37224- 7800 Dec, Physical exam, pre-employment Z02.1 ; Drug abuse and dependence F19.20 ; UTI (urinary tract infection) N39.0 ; Proteinuria R80.9 ; Cellulitis L03.90 and Type 2 diabetes mellitus with other specified complication E11.[address] 6[address]- 5185 Nov, Type 2 diabetes mellitus with other specified complication E11.69 ; Hepatitis C 070.70 ; Proteinuria R80.9 ; Diabetes mellitus E11.9 ; HTN (hypertension) I10 ; Hypercholesteremia E78.0 ; Environmental allergies Z91.09 ; Erectile dysfunction N52.9 and Alcohol abuse F10.10 [facility] [address] 83365- 6706 Oct, [facility] [address] [id number] Sep, Encounter for dental examination Z01.20 ; Dental examination Z01.20 and Dental caries K02.9 [facility] [id number] [place] [address] 82747- 6094 Aug, Tooth infection K04.[address] 10910- 1412 Aug, [facility] [id number] [place] [address] 28801- 8418 Jul, [facility] [address] 88245- 6001 Jun, Shoulder pain 719.41 [facility] [id number] [place] [address] 90980- 4185 Jun, Hepatitis C 070.70 [facility] [id number] [place] [address] 975094- 7479 Jun, Essential hypertension, benign 401.1 ; Psychosexual dysfunction with inhibited sexual excitement 302.72 ; Proteinuria 791.0 ; Unspecified viral hepatitis C without hepatic coma 070.70 ; Diabetes mellitus without mention of complication, type II or unspecified type, uncontrolled 250.02 ; Joint pain 719.40 ; Hepatitis C 070.70 and Hypercholesterolemia 272.0 [facility] [id number] [place] [address] 358388- 8581 Jun, [facility] [id number] [place] [address] 58861- 1451 Apr, [facility] [id number] [place] [address] 00024- 1996 Apr, [facility] [id number] [place] [address] 64812- 8551 Mar, [facility] [id number] [place] [address] 45320- 1170 14 Jan, 2015 [facility] [id number] [place] [address] 23232- 4973 Jan, [facility] [id number] [place] [address] [id number]- 2971 Dec, [facility] [id number] [place] [address] 23243- 9795 Dec, [facility] [id number] [place] [address] 492413- 7021 Dec, [facility] [id number] [place] [address] 00571- 0276 Dec, [facility] [id number] [place] [address] 50275- 2392 Jun, [facility] [place] [facility] [address] [id number] [place] [address]- 7734 Jun, [facility] [place] [facility] [address] [id number] [place] [address]- 4181 Jun, [facility] [place] [facility] [address] [id number] [place] [address]- 4416 Jun, [facility] [place] [facility] [address] [id number] [place] [address]- 9444 February, [facility] [place] [facility] [address] [id number] [place] [address]- 7746 February, [facility] [place] [facility] [address] [id number] [place] [address]- 4950 February, [facility] [place] [facility] [address] [id number] [place] [address]- 1299 February, [facility] [place] [facility] [address] [id number] [place] [address]- 6866 February, [facility] [place] [facility] [address] [id number] [place] [address]- 9801 Dec, [facility] [place] [facility] [address] [id number] [place] [address]- 8341 Dec, [facility] [place] [facility] [address] [id number] [place] [address]- 5150 Oct, [facility] [place] [facility] [address] [id number] [place] [address]- 3476 Oct, [facility] [place] [facility] [address] [id number] [place] [address]- 9574 Sep, [facility] [place] [facility] [address] [id number] [place] [address]- 2556 Sep, [facility] [place] [facility] [address] [id number] [place] [address]- 2983 Jul, [facility] [place] [facility] [address] [id number] [place] [address]- 2887 Jul, [facility] [address] [id number] [place] [address]- 6770 15 Jul, 2013 [facility] [address] [id number] [place] [address]- 4775 15 Jul, 2013 [facility] [address] [id number] [place] [address]- 0047 Jun, [facility] [address] [id number] [place] [address]- 2136 Jun, [facility] [address] [id number] [place] [address]- 8198 Apr, [facility] [address] [id number] [place] [address]- 4274 Apr, [facility] [address] [id number] [place] [address]- 9615 Mar, [facility] [address] [id number] [place] [address]- 2344 February, [facility] [address] [id number] [place] [address]- 7771 February, [facility] [address] [id number] [place] [address]- 5191 February, [facility] [address] [id number] [place] [address]- 6132 February, [facility] [address] [id number] [place] [address]- 8844 February, [facility] [address] [id number] [place] [address]- 1479 February, [facility] [address] [id number] [place] [address]- 0927 February, [facility] [address] [id number] [place] [address]- 4817 February, [facility] [address] [id number] [place] [address]- 8120 Dec, [facility] [place] [facility] [address] [id number] [place] [address]- 7676 Nov, 2012 [facility] [place] [facility] [address] [id number] [place] [address]- 2546 Nov, 2012 [facility] [place] [facility] [address] [id number] [place] [address]- 2106 Nov, [facility] [place] [facility] [address] [id number] [place] [address]- 2611 Oct, [facility] [place] [facility] [address] [id number] [place] [address]- 1329 Sep, [facility] [address] [id number] [place] 6593 Sep, [facility] [address] [id number] [place] [address]- 5836 Sep, [facility] [place] [facility] [address] [id number] [place] [address]- 4764 Sep, [facility] [address] [id number] [place] [address]- 7071 Sep, [facility] [place] [facility] [address] [id number] [place] [address]- 2522 Sep, [facility] [place] [facility] [address] [id number] [place] [address]- 2824 Sep, [facility] [place] [facility] [address] [id number] [place] [address]- 0083 Sep, [facility] [place] [facility] [address] [id number] [place] [address]- 7406 Sep, [facility] [place] [facility] [address] [id number] [place] [address]- 9579 Sep, [facility] [place] [facility] [address] [id number] [place] [address] 2546 Sep, [facility] [address] [facility] [id number] [place] [address]- 2546 Sep, [facility] [address] [facility] [id number] [place] [address]- 2546 Aug, IMMUNIZATIONS No Known Immunizations SOCIAL HISTORY Never Assessed REASON FOR VISIT EMR-[facility] PLAN OF CARE VITAL SIGNS MEDICATIONS No [...] Iron Def. Anemia, Chest pain, DM type 2-[facility] 2616 Hospitalization History Chest pain, illicit drug use-[facility] 03/21/2018
--- OUTSIDE RECORDS SUMMARY | 2019-02-11 12:54 | XMS REPORT ---
Author Author Migration, Doctor Organization [facility] Address Unknown Phone Unavailable Care Team Providers Care Interior Block Wirer Name Role Phone Migration, Doctor Unavailable Unavailable PROBLEMS Type Condition ICD9-CM Code YPC08-MX Code Onset Dates Condition Status SNOMED Code Problem Type 2 diabetes mellitus with other specified complication E11.69 Active [id number] Problem HTN (hypertension) I10 Active 36448612 Problem Drug abuse and dependence F19.20 Active 5192631 Problem Erectile dysfunction N52.9 Active 665173024 Problem Essential hypertension I10 Active 36002563 Problem Dental caries, unspecified K02.9 Active 51250268 Problem Epididymitis N45.1 Active 19469099 Problem Anemia D64.9 Active 895011461 Problem Chronic obstructive pulmonary disease, unspecified COPD type J44.9 Active 82726713 Problem Iron deficiency anemia due to chronic blood loss D50.0 Active 29489146 Problem Hypercholesteremia E78.0 Active 257359603 Problem Pure hypercholesterolemia, unspecified E78.00 Active 792008785 Problem Chronic fatigue R53.82 Active 18551406 Problem 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 Active 7498163903073 Problem Environmental allergies Z91.09 Active 523380065 Problem Other male erectile dysfunction N52.8 Active 969408701 Problem Mixed hyperlipidemia E78.2 Active 921948606 Problem Alcohol abuse F10.10 Active 03142297 Problem Proteinuria R80.9 Active 49940800 Problem Chronic hepatitis C without hepatic coma B18.2 Active 168939723 Problem Benign prostatic hyperplasia without lower urinary tract symptoms N40.0 Active 151589469 Problem Other iron deficiency anemia D50.8 Active 32998086 Problem Sexual dysfunction R37 Active 29505456 ALLERGIES No Information ENCOUNTERS Encounter Location Date Diagnosis [facility] [address] [address] Jul, Chronic fatigue R53.82 and Acute non-recurrent maxillary sinusitis J01.00 [facility] [address], [place] [address] Apr, Essential hypertension I10 [facility] [id number] [place] [address] 89988- 1977 Mar, Essential hypertension I10 [facility] [id number] [place] [address] 95185- 2835 Mar, [facility] [id number] [place] [address] 13058- 4088 Jan, Sebaceous cyst L72.3 [facility] [id number] [place] [address] 17916- 4305 Jan, [facility] [id number] [place] [address] 44797- 1509 Jan, [facility] [id number] [place] [address] 76403- 9599 Jan, Type 2 diabetes mellitus with other [...] anemia due to chronic blood loss D50.0 [facility] [id number] [place] [address] 71599- 1188 Nov, Dental caries K02.9 [facility] [id number] [place] [address] [id number] Nov, Dental caries K02.9 [facility] [id number] [place] [address] 15026- 4130 Oct, HTN (hypertension) I10 [facility] [id number] [place] [address] 06853- 8523 Sep, Type 2 diabetes mellitus with other specified complication E11.69 [facility] [address] [place] [address]- 8469 Sep, [facility] [id number] [place] [address] 80518- 2966 Aug, HTN (hypertension) I10 ; Type 2 diabetes mellitus with other specified complication E11.69 ; Benign prostatic hyperplasia without lower urinary tract symptoms N40.0 and Other iron deficiency anemia D50.8 [facility] [id number] [place] [address] [id number] Aug, [facility] [id number] [place] [address] [id number] Aug, [facility] [address] [id number] Jul, Dental examination Z01.20 [facility] [address] 80205- 5450 Jul, Type 2 diabetes mellitus with other specified complication E11.69 [facility] [address] [address]209- [address]93 May, [place] [address] 17196- 8621 Apr, Type 2 diabetes mellitus with other specified complication E11.69 ; Proteinuria R80.9 ; HTN (hypertension) I10 ; Erectile dysfunction N52.9 ; Chronic obstructive pulmonary disease, unspecified COPD type J44.9 ; Chronic hepatitis C without hepatic coma B18.2 ; 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 ; Iron deficiency anemia due to chronic blood loss D50.0 and Hypercholesteremia E78.0 [facility] [id number] [place] [address] 49051- 2109 Mar, Diabetes mellitus E11.9 ; Hypercholesteremia E78.0 and Type 2 diabetes mellitus with other specified complication E11.69 [facility] [id number] [place] [address] 02035- 5610 Mar, [facility] [address] 93022- 3361 Mar, Iron deficiency anemia due to chronic blood loss D50.0 [facility] [id number] [place] [address] 07969- 3379 Mar, Type 2 diabetes mellitus with other specified complication E11.69 and Iron deficiency anemia due to chronic blood loss D50.0 [facility] [address] [address] 7[address] Mar, Iron deficiency anemia due to chronic blood loss D50.0 [facility] [id number] [place] [address] 91690- 1905 February, [facility] [id number] [place] [address] 90615- 9444 February, Iron deficiency anemia due to chronic blood loss D50.0 [facility] [id number] [place] [address] 18718- 5682 February, [facility] [id number] [place] [address] 65413- 7686 February, Anemia D64.9 [facility] [id number] [place] [address] 54888- 3369 February, Anemia D64.9 and 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 [facility] [address], [place] [address] Jan, Chest discomfort R07.89 ; Type 2 diabetes mellitus with other specified complication E11.69 ; HTN (hypertension) I10 ; Mixed hyperlipidemia E78.2 ; Dyspnea on exertion R06.09 and Tobacco use Z72.0 [facility] [address] [place] [address] 31083- 3515 Dec, [facility] [id number] [place] [address] 37791- 6416 Dec, [facility] [address] [place] [address] 64049- 3470 Dec, Diabetes mellitus E11.9 ; HTN (hypertension) I10 ; Hypercholesteremia E78.0 ; Alcohol abuse F10.10 ; Proteinuria R80.9 ; Essential hypertension I10 ; Chronic hepatitis C with hepatic coma B18.2 ; Benign nodular prostatic hyperplasia with lower urinary tract symptoms N40.1 and Anemia D64.9 [facility] [id number] [place] [address] 34920- 5323 Jul, Epididymitis N45.1 and Testicle swelling N50.89 [facility] [address] 53743- 6844 Jul, Type 2 diabetes mellitus with other specified complication E11.69 ; Hypercholesteremia E78.0 ; Environmental allergies Z91.09 ; Erectile dysfunction N52.9 ; Alcohol abuse F10.10 ; Drug abuse and dependence F19.20 ; Epididymitis N45.1 ; Essential hypertension I10 and Chronic obstructive pulmonary disease, unspecified COPD type J44.9 [place] [facility] [address] 40525- 3592 Jul, [place] [facility] [address] 05935- 9168 Jul, Epididymitis, left N45.1 [facility] [address] 02250- 9363 February, Diabetes mellitus E11.9 [facility] [id number] [place] [address] 60213- 0403 Jan, Dental examination Z01.20 and Dental caries K02.9 [facility] [address] 81478- 3704 Jan, Type 2 diabetes mellitus with other specified complication E11.69 ; HTN (hypertension) I10 ; Hypercholesteremia E78.0 ; Alcohol abuse F10.10 ; Proteinuria R80.9 and Dental caries, unspecified K02.9 [facility] [id number] [place] [address] 50365- 2823 Dec, [facility] [id number] [place] [address] 02232- 5926 Dec, Sebaceous cyst L72.3 ; HTN (hypertension) I10 ; Hypercholesteremia E78.0 ; Proteinuria R80.9 and Anemia D64.9 [place] [id number] [place] [address] 92510- 8586 Dec, Anemia D64.9 [facility] [address] 05742- 0762 Dec, Physical exam, pre-employment Z02.1 ; Drug abuse and dependence F19.20 ; UTI (urinary tract infection) N39.0 ; Proteinuria R80.9 ; Cellulitis L03.90 and Type 2 diabetes mellitus with other specified complication E11.[address] 8[address]22- 4390 Nov, Type 2 diabetes mellitus with other specified complication E11.69 ; Hepatitis C 070.70 ; Proteinuria R80.9 ; Diabetes mellitus E11.9 ; HTN (hypertension) I10 ; Hypercholesteremia E78.0 ; Environmental allergies Z91.09 ; Erectile dysfunction N52.9 and Alcohol abuse F10.10 [place] [address] 41387- 9131 Oct, [facility] [address] [id number] Sep, Encounter for dental examination Z01.20 ; Dental examination Z01.20 and Dental caries K02.9 [facility] [id number] [place] [address] 40956- 2019 Aug, Tooth infection K04.[address] 46445- 9494 Aug, [place] [id number] [place] [address] 11408- 6628 Jul, [place] [address] 42707- 0175 Jun, Shoulder pain 719.41 [facility] [address] [place] [address] 27340- 9683 Jun, Hepatitis C 070.70 [facility] [id number] [place] [address] 624482- 2934 Jun, Essential hypertension, benign 401.1 ; Psychosexual dysfunction with inhibited sexual excitement 302.72 ; Proteinuria 791.0 ; Unspecified viral hepatitis C without hepatic coma 070.70 ; Diabetes mellitus without mention of complication, type II or unspecified type, uncontrolled 250.02 ; Joint pain 719.40 ; Hepatitis C 070.70 and Hypercholesterolemia 272.0 [facility] [id number] [place] [address] 280230- 5353 Jun, [facility] [id number] [place] [address] 10828- 7255 Apr, [facility] [id number] [place] [address] 44390- 1065 Apr, [facility] [id number] [place] [address] 91695- 1946 Mar, [facility] [id number] [place] [address] 00082- 5621 14 Jan, 2015 [facility] [id number] [place] [address] 20704- 2846 Jan, [facility] [id number] [place] [address] [id number]- 3093 Dec, [facility] [id number] [place] [address] 24056- 1796 Dec, [facility] [id number] [place] [address] 056214- 7231 Dec, [facility] [id number] [place] [address] 07167- 7096 Dec, [facility] [id number] [place] [address] 71203- 8580 Jun, [facility] [place] [facility] [address] [id number] [place] [address]- 2987 Jun, [facility] [place] [facility] [address] [id number] [place] [address]- 2010 Jun, [facility] [place] [facility] [address] [id number] [place] [address]- 7124 Jun, [facility] [place] [facility] [address] [id number] [place] [address]- 0152 February, [facility] [place] [facility] [address] [id number] [place] [address]- 4388 February, [facility] [place] [facility] [address] [id number] [place] [address]- 2606 February, [facility] [place] [facility] [address] [id number] [place] [address]- 6183 February, [facility] [place] [facility] [address] [id number] [place] [address]- 0612 February, [facility] [place] [facility] [address] [id number] [place] [address]- 6871 Dec, [facility] [place] [facility] [address] [id number] [place] [address]- 3520 Dec, [facility] [place] [facility] [address] [id number] [place] [address]- 2514 Oct, [facility] [place] [facility] [address] [id number] [place] [address]- 6430 Oct, [facility] [place] [facility] [address] [id number] [place] [address]- 6874 Sep, [facility] [place] [facility] [address] [id number] [place] [address]- 2166 Sep, [facility] [place] [facility] [address] [id number] [place] [address]- 4759 Jul, [facility] [place] [facility] [address] [id number] [place] [address]- 3019 Jul, [facility] [address] [id number] [place] [address]- 5331 15 Jul, 2013 [facility] [address] [id number] [place] [address]- 4665 15 Jul, 2013 [facility] [address] [id number] [place] [address]- 0614 Jun, [facility] [address] [id number] [place] [address]- 3602 Jun, [facility] [address] [id number] [place] [address]- 5357 Apr, [facility] [address] [id number] [place] [address]- 8108 Apr, [facility] [address] [id number] [place] [address]- 2604 Mar, [facility] [address] [id number] [place] [address]- 5078 February, [facility] [address] [id number] [place] [address]- 0524 February, [facility] [address] [id number] [place] [address]- 0931 February, [facility] [address] [id number] [place] [address]- 6371 February, [facility] [address] [id number] [place] [address]- 8632 February, [facility] [address] [id number] [place] [address]- 8744 February, [facility] [address] [id number] [place] [address]- 5070 February, [facility] [address] [id number] [place] [address]- 3017 February, [facility] [address] [id number] [place] [address]- 4394 Dec, [facility] [place] [facility] [address] [id number] [place] [address]- 9786 Nov, 2012 [facility] [place] [facility] [address] [id number] [place] [address]- 2546 Nov, 2012 [facility] [place] [facility] [address] [id number] [place] [address]- 9606 Nov, [facility] [place] [facility] [address] [id number] [place] [address]- 1726 Oct, [facility] [place] [facility] [address] [id number] [place] [address]- 1136 Sep, [facility] [address] [id number] [place] [address]13 Sep, [facility] [address] [id number] [place] [address]- 2609 Sep, [facility] [place] [facility] [address] [id number] [place] [address]- 8019 Sep, [facility] [address] [id number] [place] [address]- 6693 Sep, [facility] [place] [facility] [address] [id number] [place] [address]- 2086 Sep, [facility] [place] [facility] [address] [id number] [place] [address]- 4074 Sep, [facility] [place] [facility] [address] [id number] [place] [address]- 3843 Sep, [facility] [place] [facility] [address] [id number] [place] [address]- 4876 Sep, [facility] [place] [facility] [address] [id number] [place] [address]- 6861 Sep, [facility] [place] [facility] [address] [id number] [place] [address] 2546 Sep, [facility] [address] [facility] [id number] [place] [address]- 2546 Sep, [facility] [address] [facility] [id number] [place] [address]- 2546 Aug, IMMUNIZATIONS No Known Immunizations SOCIAL HISTORY Never Assessed [place]ASON FOR [place] [place] VITAL SIGNS MEDICATIONS No [...] Iron Def. Anemia, Chest pain, DM type 2-[facility] 2616 Hospitalization History Chest pain, illicit drug use-[facility] 03/21/2018
--- OUTSIDE RECORDS SUMMARY | 2019-02-11 12:54 | XMS REPORT ---
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 Name Role Phone Migration, Doctor Unavailable Unavailable PROBLEMS Type Condition ICD9-CM Code FRW33-SO Code Onset Dates Condition Status SNOMED Code Problem Type 2 diabetes mellitus with other specified complication E11.69 Active 033920045017634 Problem HTN (hypertension) I10 Active 14055414 Problem Drug abuse and dependence F19.20 Active 5504467 Problem Erectile dysfunction N52.9 Active 746326268 Problem Essential hypertension I10 Active 82068389 Problem Dental caries, unspecified K02.9 Active 65930618 Problem Epididymitis N45.1 Active 65102720 Problem Anemia D64.9 Active 406202686 Problem Chronic obstructive pulmonary disease, unspecified COPD type J44.9 Active 01921397 Problem Iron deficiency anemia due to chronic blood loss D50.0 Active 86451476 Problem Hypercholesteremia E78.0 Active 985421892 Problem Pure hypercholesterolemia, unspecified E78.00 Active 135042591 Problem Chronic fatigue R53.82 Active 42455455 Problem 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 Active 9641587447294 Problem Environmental allergies Z91.09 Active 340897716 Problem Other male erectile dysfunction N52.8 Active 113815308 Problem Mixed hyperlipidemia E78.2 Active 722434394 Problem Alcohol abuse F10.10 Active 04178601 Problem Proteinuria R80.9 Active 69696011 Problem Chronic hepatitis C without hepatic coma B18.2 Active 197223197 Problem Benign prostatic hyperplasia without lower urinary tract symptoms N40.0 Active 641411391 Problem Other iron deficiency anemia D50.8 Active 89057231 Problem Sexual dysfunction R37 Active 92858655 ALLERGIES No Information ENCOUNTERS Encounter Location Date Diagnosis [facility] [id number], [place] [address] Jul, Chronic fatigue R53.82 and Acute non-recurrent maxillary sinusitis J01.00 [facility] [address], [place] [address] Apr, Essential hypertension I10 [facility] [id number] [place] [address] 09114- 7314 Mar, Essential hypertension I10 [facility] [id number] [place] [address] 92268- 9624 Mar, [facility] [id number] [place] [address] 00468- 4930 Jan, Sebaceous cyst L72.3 [facility] [id number] [place] [address] 04170- 1274 Jan, [place] [id number] [place] [address] 02743- 1761 Jan, [facility] [id number] [place] [address] 06628- 3024 Jan, Type 2 diabetes mellitus with other [...] anemia due to chronic blood loss D50.0 [place] [id number] [place] [address] 99913- 1572 Nov, Dental caries K02.9 [facility] [id number] [place] [address] [id number] Nov, Dental caries K02.9 [facility] [id number] [place] [address] 73943- 2692 Oct, HTN (hypertension) I10 [facility] [id number] [place] [address] 22636- 2500 Sep, Type 2 diabetes mellitus with other specified complication E11.69 [facility] [address] [place] [address] 26[address] Sep, [facility] [id number] [place] [address] 11015- 5741 Aug, HTN (hypertension) I10 ; Type 2 diabetes mellitus with other specified complication E11.69 ; Benign prostatic hyperplasia without lower urinary tract symptoms N40.0 and Other iron deficiency anemia D50.8 [facility] [id number] [place] [address] [id number] Aug, [facility] [id number] [place] [address] [id number] Aug, [facility] [address] [id number] Jul, Dental examination Z01.20 [place] [address] [address]- 2013 Jul, Type 2 diabetes mellitus with other specified complication E11.69 [place] [address] [address]26- 9106 May, [place] [address] 16660- 6377 Apr, Type 2 diabetes mellitus with other specified complication E11.69 ; Proteinuria R80.9 ; HTN (hypertension) I10 ; Erectile dysfunction N52.9 ; Chronic obstructive pulmonary disease, unspecified COPD type J44.9 ; Chronic hepatitis C without hepatic coma B18.2 ; 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 ; Iron deficiency anemia due to chronic blood loss D50.0 and Hypercholesteremia E78.0 [place] [id number] [place] [address] 94926- 4794 Mar, Diabetes mellitus E11.9 ; Hypercholesteremia E78.0 and Type 2 diabetes mellitus with other specified complication E11.69 [place] [id number] [place] [address] 61957- 4092 Mar, [place] [address] 37537- 9187 Mar, Iron deficiency anemia due to chronic blood loss D50.0 [place] [id number] [place] [address] 98256- 4281 Mar, Type 2 diabetes mellitus with other specified complication E11.69 and Iron deficiency anemia due to chronic blood loss D50.0 [place] [address], [place] [address] 1325 Mar, Iron deficiency anemia due to chronic blood loss D50.0 [place] [id number] [place] [address] 08289- 2382 February, [place] [id number] [place] [address] 15334- 8034 February, Iron deficiency anemia due to chronic blood loss D50.0 [place] [id number] [place] [address] 95913- 1327 February, [place] [id number] [place] [address] 09414- 5372 February, Anemia D64.9 [place] [id number] [place] [address] 28754- 5024 February, Anemia D64.9 and 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 [place] [address], [place] [address] 8894 Jan, Chest discomfort R07.89 ; Type 2 diabetes mellitus with other specified complication E11.69 ; HTN (hypertension) I10 ; Mixed hyperlipidemia E78.2 ; Dyspnea on exertion R06.09 and Tobacco use Z72.0 [place] [address] [place] [address] 42377- 1019 Dec, [place] [id number] [place] [address] 72842- 8311 Dec, [place] [address] [place] [address] 34007- 6984 Dec, Diabetes mellitus E11.9 ; HTN (hypertension) I10 ; Hypercholesteremia E78.0 ; Alcohol abuse F10.10 ; Proteinuria R80.9 ; Essential hypertension I10 ; Chronic hepatitis C with hepatic coma B18.2 ; Benign nodular prostatic hyperplasia with lower urinary tract symptoms N40.1 and Anemia D64.9 [place] [id number] [place] [address] 49944- 8951 Jul, Epididymitis N45.1 and Testicle swelling N50.89 [place] [address] 22739- 7003 Jul, Type 2 diabetes mellitus with other specified complication E11.69 ; Hypercholesteremia E78.0 ; Environmental allergies Z91.09 ; Erectile dysfunction N52.9 ; Alcohol abuse F10.10 ; Drug abuse and dependence F19.20 ; Epididymitis N45.1 ; Essential hypertension I10 and Chronic obstructive pulmonary disease, unspecified COPD type J44.9 [place] [address] 25784- 4017 Jul, [place] [address] 11430- 4920 Jul, Epididymitis, left N45.1 [place] [address] 37580- 2602 February, Diabetes mellitus E11.9 [place] [id number] [place] [address] 80442- 2641 Jan, Dental examination Z01.20 and Dental caries K02.9 [place] [address] 55378- 1480 Jan, Type 2 diabetes mellitus with other specified complication E11.69 ; HTN (hypertension) I10 ; Hypercholesteremia E78.0 ; Alcohol abuse F10.10 ; Proteinuria R80.9 and Dental caries, unspecified K02.9 [place] [id number] [place] [address] 19721- 3407 Dec, [place] [id number] [place] [address] 21923- 1891 Dec, Sebaceous cyst L72.3 ; HTN (hypertension) I10 ; Hypercholesteremia E78.0 ; Proteinuria R80.9 and Anemia D64.9 [place] [id number] [place] [address] 80489- 7619 Dec, Anemia D64.9 [place] [address] 25652- 5538 Dec, Physical exam, pre-employment Z02.1 ; Drug abuse and dependence F19.20 ; UTI (urinary tract infection) N39.0 ; Proteinuria R80.9 ; Cellulitis L03.90 and Type 2 diabetes mellitus with other specified complication E11.[address] 14142- 9895 Nov, Type 2 diabetes mellitus with other specified complication E11.69 ; Hepatitis C 070.70 ; Proteinuria R80.9 ; Diabetes mellitus E11.9 ; HTN (hypertension) I10 ; Hypercholesteremia E78.0 ; Environmental allergies Z91.09 ; Erectile dysfunction N52.9 and Alcohol abuse F10.10 [place] [address] 57012- 7388 Oct, [facility] [address] [id number] Sep, Encounter for dental examination Z01.20 ; Dental examination Z01.20 and Dental caries K02.9 [place] [id number] [place] [address] 29175- 8972 Aug, Tooth infection K04.[address] 29932- 2296 Aug, [place] [id number] [place] [address] 93508- 8590 Jul, [place] [address] 96538- 8781 Jun, Shoulder pain 719.41 [facility] [address] [place] [address] 68939- 1271 Jun, Hepatitis C 070.70 [facility] [id number] [place] [address] 275046- 5472 Jun, Essential hypertension, benign 401.1 ; Psychosexual dysfunction with inhibited sexual excitement 302.72 ; Proteinuria 791.0 ; Unspecified viral hepatitis C without hepatic coma 070.70 ; Diabetes mellitus without mention of complication, type II or unspecified type, uncontrolled 250.02 ; Joint pain 719.40 ; Hepatitis C 070.70 and Hypercholesterolemia 272.0 [facility] [id number] [place] [address] 830625- 8122 Jun, [facility] [id number] [place] [address] 65889- 9494 Apr, [facility] [id number] [place] [address] 67830- 2863 Apr, [facility] [id number] [place] [address] 83194- 7493 Mar, [facility] [id number] [place] [address] 81097- 2605 14 Jan, 2015 [facility] [id number] [place] [address] 11116- 1883 Jan, [facility] [id number] [place] [address] [id number]- 8053 Dec, [facility] [id number] [place] [address] 53020- 6480 Dec, [facility] [id number] [place] [address] 075519- 6585 Dec, [facility] [id number] [place] [address] 98460- 4526 Dec, [facility] [id number] [place] [address] 02721- 4855 Jun, [facility] [place] [facility] [address] [id number] [place] [address]- 2739 Jun, [facility] [place] [facility] [address] [id number] [place] [address]- 0552 Jun, [facility] [place] [facility] [address] [id number] [place] [address]- 9660 Jun, [facility] [place] [facility] [address] [id number] [place] [address]- 0505 February, [facility] [place] [facility] [address] [id number] [place] [address]- 0652 February, [facility] [place] [facility] [address] [id number] [place] [address]- 1066 February, [facility] [place] [facility] [address] [id number] [place] [address]- 3689 February, [facility] [place] [facility] [address] [id number] [place] [address]- 4789 February, [facility] [place] [facility] [address] [id number] [place] [address]- 1387 Dec, [facility] [place] [facility] [address] [id number] [place] [address]- 0281 Dec, [facility] [place] [facility] [address] [id number] [place] [address]- 7415 Oct, [facility] [place] [facility] [address] [id number] [place] [address]- 8082 Oct, [facility] [place] [facility] [address] [id number] [place] [address]- 3190 Sep, [facility] [place] [facility] [address] [id number] [place] [address]- 5586 Sep, [facility] [place] [facility] [address] [id number] [place] [address]- 3335 Jul, [facility] [place] [facility] [address] [id number] [place] [address]- 4420 Jul, [facility] [address] [id number] [place] [address]- 4930 15 Jul, 2013 [facility] [address] [id number] [place] [address]- 8139 15 Jul, 2013 [facility] [address] [id number] [place] [address]- 2865 Jun, [facility] [address] [id number] [place] [address]- 4245 Jun, [facility] [address] [id number] [place] [address]- 4396 Apr, [facility] [address] [id number] [place] [address]- 0822 Apr, [facility] [address] [id number] [place] [address]- 6154 Mar, [facility] [address] [id number] [place] [address]- 9544 February, [facility] [address] [id number] [place] [address]- 9378 February, [facility] [address] [id number] [place] [address]- 3275 February, [facility] [address] [id number] [place] [address]- 7601 February, [facility] [address] [id number] [place] [address]- 6143 February, [facility] [address] [id number] [place] [address]- 8435 February, [facility] [address] [id number] [place] [address]- 8591 February, [facility] [address] [id number] [place] [address]- 0728 February, [facility] [address] [id number] [place] [address]- 1610 Dec, [facility] [place] [facility] [address] [id number] [place] [address]- 1026 Nov, 2012 [facility] [place] [facility] [address] [id number] [place] [address]- 2546 Nov, 2012 [facility] [place] [facility] [address] [id number] [place] [address]- 1716 Nov, [facility] [place] [facility] [address] [id number] [place] [address]- 1842 Oct, [facility] [place] [facility] [address] [id number] [place] [address]- 9213 Sep, [facility] [address] [id number] [place] 4508 Sep, [facility] [address] [id number] [place] [address]- 3555 Sep, [facility] [place] [facility] [address] [id number] [place] [address]- 2467 Sep, [facility] [address] [id number] [place] [address]- 5246 Sep, [facility] [place] [facility] [address] [id number] [place] [address]- 7482 Sep, [facility] [place] [facility] [address] [id number] [place] [address]- 4573 Sep, [facility] [place] [facility] [address] [id number] [place] [address]- 8740 Sep, [facility] [place] [facility] [address] [id number] [place] [address]- 8606 Sep, [facility] [place] [facility] [address] [id number] [place] [address]- 9993 Sep, [facility] [place] [facility] [address] [id number] [place] [address] 2546 Sep, [facility] [address] [facility] [id number] [place] [address]- 2546 Sep, [facility] [address] [facility] [id number] [place] [address]- 2546 Aug, IMMUNIZATIONS No Known Immunizations SOCIAL HISTORY Never Assessed REASON FOR VISIT EMR-[facility] PLAN OF CARE VITAL SIGNS MEDICATIONS No [...] Iron Def. Anemia, Chest pain, DM type 2-[facility] 2616 Hospitalization History Chest pain, illicit drug use-[facility] 03/21/2018
--- OUTSIDE RECORDS SUMMARY | 2019-02-11 12:55 | XMS REPORT ---
Author Author LALO LOPEZ [facility] Address [address] [place] [address] Care Team Providers Care Slunk Skinner Name Role Phone LALO LOPEZ Unavailable PROBLEMS Type Condition ICD9-CM Code MAA35-OX Code Onset Dates Condition Status SNOMED Code Problem Iron deficiency anemia due to chronic blood loss D50.0 Active 22814763 Problem Pure hypercholesterolemia, unspecified E78.00 Active 825468135 Problem Hypercholesteremia E78.0 Active 386650536 Problem Other male erectile dysfunction N52.8 Active 210416484 Problem Proteinuria R80.9 Active 50307800 Problem Chronic fatigue R53.82 Active 87085499 Problem Environmental allergies Z91.09 Active 436535112 Problem Alcohol abuse F10.10 Active 29738131 Problem Benign prostatic hyperplasia without lower urinary tract symptoms N40.0 Active 841552311 Problem Chronic hepatitis C without hepatic coma B18.2 Active 287661107 Problem Sexual dysfunction R37 Active 88480344 Problem Other iron deficiency anemia D50.8 Active 69037131 Problem Erectile dysfunction N52.9 Active 168008466 Problem Drug abuse and dependence F19.20 Active 1782365 Problem HTN (hypertension) I10 Active 23476934 Problem Type 2 diabetes mellitus with other specified complication E11.69 Active 210156988388895 Problem Chronic obstructive pulmonary disease, unspecified COPD type J44.9 Active 99780179 Problem Epididymitis N45.1 Active 86636707 Problem Dental caries, unspecified K02.9 Active 83138161 Problem Mixed hyperlipidemia E78.2 Active 490931197 Problem Anemia D64.9 Active 503253011 Problem Essential hypertension I10 Active 20027828 Problem 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 Active [id number] ALLERGIES No Information ENCOUNTERS Encounter Location Date Diagnosis [facility] [address] [facility] [id number] [address] Apr, Essential hypertension I10 [facility] [address], [place] [address] 18 Mar, 2018 Essential hypertension I10 [facility] [id number] [place] [address]53- 4567 Mar, [facility] [id number] [place] [address] 90399- 4492 Jan, Sebaceous cyst L72.3 [facility] [id number] [place] [address] 12976- 6306 Jan, [facility] [id number] [place] [address] 67374- 5956 Jan, [facility] [address] [place] [address] 48457- 0762 Jan, Type 2 diabetes mellitus with other [...] anemia due to chronic blood loss D50.0 [facility] [address] [place] [address] 91572- 4302 Nov, Dental caries K02.9 [facility] [address] [id number] Nov, Dental caries K02.9 [facility] [address] [place] [address] 56055- 2177 Oct, HTN (hypertension) I10 [facility] [id number] [place] [address] 27543- 0735 Sep, Type 2 diabetes mellitus with other specified complication E11.69 [facility] [address] [place] [address] 02455- 7613 Sep, [facility] [address] [id number] [id number] Aug, HTN (hypertension) I10 ; Type 2 diabetes mellitus with other specified complication E11.69 ; Benign prostatic hyperplasia without lower urinary tract symptoms N40.0 and Other iron deficiency anemia D50.8 [facility] [address] [id number] Aug, [facility] [address] [id number] Aug, [facility] [id number] [place] [address] [id number] Jul, Dental examination Z01.20 [place] [address] [address]- [address] Jul, Type 2 diabetes mellitus with other specified complication E11.69 [place] [id number] [place] [address] 41557- 6157 May, [facility] [id number] [place] [address] 94899- 5683 Apr, Type 2 diabetes mellitus with other specified complication E11.69 ; Proteinuria R80.9 ; HTN (hypertension) I10 ; Erectile dysfunction N52.9 ; Chronic obstructive pulmonary disease, unspecified COPD type J44.9 ; Chronic hepatitis C without hepatic coma B18.2 ; 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 ; Iron deficiency anemia due to chronic blood loss D50.0 and Hypercholesteremia E78.0 [facility] [address] [place] [address] 29351- 8754 Mar, Diabetes mellitus E11.9 ; Hypercholesteremia E78.0 and Type 2 diabetes mellitus with other specified complication E11.69 [facility] [id number] [place] [address] 14122- 5492 Mar, [facility] [id number] [place] [address] 69656- 4883 Mar, Iron deficiency anemia due to chronic blood loss D50.[address], [place] [address] Mar, Type 2 diabetes mellitus with other specified complication E11.69 and Iron deficiency anemia due to chronic blood loss D50.0 [facility] [address], [place] [address] 0797 Mar, Iron deficiency anemia due to chronic blood loss D50.0 [facility] [id number] [place] [address] 34045- 8380 February, [facility] [id number] [place] [address] 47385- 1798 February, Iron deficiency anemia due to chronic blood loss D50.0 [facility] [address] [place] [address] 11033- 0546 February, [facility] [id number] [place] [address] 40403- 0488 February, Anemia D64.9 [facility] [address] [place] [address] 73580- 6184 February, Anemia D64.9 and 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 [facility] [address], [place] [address] 2[address] Jan, Chest discomfort R07.89 ; Type 2 diabetes mellitus with other specified complication E11.69 ; HTN (hypertension) I10 ; Mixed hyperlipidemia E78.2 ; Dyspnea on exertion R06.09 and Tobacco use Z72.0 [facility] [address], [place] [address] Dec, [facility] [id number] [place] [address] 74007- 1882 Dec, [facility] [address], [place] [address] Dec, Diabetes mellitus E11.9 ; HTN (hypertension) I10 ; Hypercholesteremia E78.0 ; Alcohol abuse F10.10 ; Proteinuria R80.9 ; Essential hypertension I10 ; Chronic hepatitis C with hepatic coma B18.2 ; Benign nodular prostatic hyperplasia with lower urinary tract symptoms N40.1 and Anemia D64.9 [facility] [address] [address]72- 7125 Jul, Epididymitis N45.1 and Testicle swelling N50.89 [facility] [address] 36406- 6523 Jul, Type 2 diabetes mellitus with other specified complication E11.69 ; Hypercholesteremia E78.0 ; Environmental allergies Z91.09 ; Erectile dysfunction N52.9 ; Alcohol abuse F10.10 ; Drug abuse and dependence F19.20 ; Epididymitis N45.1 ; Essential hypertension I10 and Chronic obstructive pulmonary disease, unspecified COPD type J44.9 [facility] [facility] [address] [address]- 9609 Jul, [facility] [facility] [address] 330[address]- 3571 Jul, Epididymitis, left N45.1 [facility] [facility] [address] 630159- 3707 February, Diabetes mellitus E11.9 [facility] [address] [place] [id number]- 1404 Jan, Dental examination Z01.20 and Dental caries K02.9 [facility] [address] 7[address]75- 4974 Jan, Type 2 diabetes mellitus with other specified complication E11.69 ; HTN (hypertension) I10 ; Hypercholesteremia E78.0 ; Alcohol abuse F10.10 ; Proteinuria R80.9 and Dental caries, unspecified K02.9 [facility] [address] [place] [id number]- 7207 Dec, [facility] [address] 64835- 5031 Dec, Sebaceous cyst L72.3 ; HTN (hypertension) I10 ; Hypercholesteremia E78.0 ; Proteinuria R80.9 and Anemia D64.9 [facility] [id number] [place] [address] 16327- 2338 Dec, Anemia D64.9 [facility] [id number] [place] [address] 54885- 6177 Dec, Physical exam, pre-employment Z02.1 ; Drug abuse and dependence F19.20 ; UTI (urinary tract infection) N39.0 ; Proteinuria R80.9 ; Cellulitis L03.90 and Type 2 diabetes mellitus with other specified complication E11.69 [facility] [address] 63364- 5642 29 Nov, 2015 Type 2 diabetes mellitus with other specified complication E11.69 ; Hepatitis C 070.70 ; Proteinuria R80.9 ; Diabetes mellitus E11.9 ; HTN (hypertension) I10 ; Hypercholesteremia E78.0 ; Environmental allergies Z91.09 ; Erectile dysfunction N52.9 and Alcohol abuse F10.10 [facility] [id number] [place] [address] 53856- 7051 Oct, [facility] [address] [id number] Sep, 2015 Encounter for dental examination Z01.20 ; Dental examination Z01.20 and Dental caries K02.9 [facility] [id number] [place] [address] 45208- 5075 Aug, Tooth infection K04.7 [facility] [id number] [place] [address] 31760- 5858 Aug, [facility] [address] 85288- 8401 30 Jul, 2015 [facility] [id number] [place] [address] 99221- 3204 Jun, Shoulder pain 719.41 [place] [facility] [address] 01395- 9906 Jun, Hepatitis C 070.70 [facility] [id number] [place] [address] 491199- 8196 Jun, Essential hypertension, benign 401.1 ; Psychosexual dysfunction with inhibited sexual excitement 302.72 ; Proteinuria 791.0 ; Unspecified viral hepatitis C without hepatic coma 070.70 ; Diabetes mellitus without mention of complication, type II or unspecified type, uncontrolled 250.02 ; Joint pain 719.40 ; Hepatitis C 070.70 and Hypercholesterolemia 272.0 [facility] [id number] [place] [address] 607566- 1402 Jun, [facility] [id number] [place] [address] 736735- 0318 Apr, [facility] [id number] [place] [address] 45000- 3856 Apr, [facility] [id number] [place] [address] 61606- 5023 Mar, [facility] [id number] [place] [address] 20021- 7775 Jan, [facility] [id number] [place] [address] [id number]- 5240 Jan, [facility] [id number] [place] [address] 67670- 5502 Dec, [facility] [id number] [place] [address] 00825- 1609 Dec, [facility] [id number] [place] [address] 376656- 7832 Dec, [facility] [id number] [place] [address] 109203- 0777 Dec, [facility] [address] [place] [address] 094706- 9309 Jun, [facility] [id number] [place] [address] [id number]- 9470 Jun, [facility] [place] [facility] [address] [id number] [place] [address]- 3412 Jun, [facility] [place] [facility] [address] [id number] [place] [address]- 2079 Jun, [facility] [place] [facility] [address] [id number] [place] [address]- 9040 February, [facility] [place] [facility] [address] [id number] [place] [address]- 9533 February, [facility] [place] [facility] [address] [id number] [place] [address]- 6287 February, [facility] [place] [facility] [address] [id number] [place] [address]- 7801 February, [facility] [place] [facility] [address] [id number] [place] [address]- 4284 February, [facility] [place] [facility] [address] [id number] [place] [address]- 6333 Dec, [facility] [place] [facility] [address] [id number] [place] [address]- 9920 Dec, [facility] [place] [facility] [address] [id number] [place] [address]- 5831 Oct, [facility] [place] [facility] [address] [id number] [address]- 5500 Oct, [facility] [place] [facility] [address] [id number], [place] [address]- 4874 Sep, [facility] [place] [facility] [address] [id number] [place] [address]- 2546 Sep, [facility] [place] [facility] [address] [id number], [place] [address]- 9786 Jul, [facility] [place] [facility] [address] [id number] [place] [address]- 2546 Jul, [facility] [place] [facility] [address] [id number] [place] [address]- 8895 15 Jul, 2013 [facility] [address] [id number] [place] [address]- 6010 15 Jul, 2013 [facility] [address] [id number] [place] [address]- 5982 24 Jun, 2013 [facility] [address] [id number] [place] [address]- 5663 Jun, [facility] [address] [id number] [place] [address]- 6277 Apr, [facility] [address] [id number] [place] [address] Apr, [facility] [address] [id number] [place] [address]- 2715 Mar, [facility] [address] [id number] [place] [address]- 9223 February, [facility] [address] [id number] [place] [address]- 8848 February, [facility] [address] [id number] [place] [address]- 9704 February, [facility] [address] [id number] [place] [address]- 2864 February, [facility] [address] [id number] [place] [address]- 0559 February, [facility] [address] [id number] [place] [address]- 2198 February, [facility] [address] [id number] [place] [address]- 6171 February, [facility] [address] [id number] [place] [address]- 5226 February, [facility] [address] [id number] [place] [address]- 9982 Dec, [facility] [address] [id number] [place] [address]- 1917 Nov, 2012 [facility] [place] [facility] [address] [id number] [place] [address]- 4736 Nov, [facility] [place] [facility] [address] [id number] [place] [address]- 9675 Nov, [facility] [place] [facility] [address] [id number] [place] [address]- 5188 Oct, [facility] [place] [facility] [address] [id number] [place] [address]- 7830 Sep, [facility] [place] [facility] [address] [id number] [place] [address]- 9051 Sep, [facility] [place] [facility] [address] [id number] [place] [address]- 7733 Sep, [facility] [place] [facility] [address] [id number] [place] [address]- 4017 Sep, [facility] [place] [facility] [address] [id number] [place] [address]- 1040 Sep, [facility] [place] [facility] [address] [id number] [place] [address]- 6278 Sep, [facility] [place] [facility] [address] [id number] [place] [address]- 4397 Sep, [facility] [place] [facility] [address] [id number], [place] [address]- 3055 Sep, [facility] [place] [facility] [address] [id number] [place] [address]- 2323 Sep, [facility] [place] [facility] [address] [id number] [place] [address]- 5066 Sep, [facility] [place] [facility] [address] [id number] [place] [address]- 0886 Sep, [facility] [place] [facility] [address] [id number], [place] [address]- 2546 Sep, [facility] [address] [facility] [id number] [place] [address]- 5655 Aug, IMMUNIZATIONS No Known Immunizations SOCIAL HISTORY Never Assessed REASON FOR VISIT Hospital admit/DC PLAN OF CARE VITAL SIGNS MEDICATIONS Medication Instructions Dosage Frequency Start Date End Date Duration Status Viagra 100 MG Orally Once a day 1 tablet as needed 24h Active Acidophilus - Orally 4 times per day 2 capsults Active Pravastatin Sodium 20 mg Orally Once a day 1 tablet 24h Active Insulin Syringe/Needle 28G X 1/2 for use with Levemir 2 times a day 1 Syringe 12h Dec, 30 days Not-Taking Carafate 1 GM Orally 4 times a day 1 tablet 6h Active Proventil HFA 108 (90 Base) MCG/ACT Inhalation every 4 hrs 2 puffs as needed 4h Dec, Active Protonix 40 mg Orally BID for two weeks and then once a week after. 1 tablet Active Lantus 100 UNIT/ML Subcutaneous Once a day inject 100 units 24h Jan, Not-Taking Metformin HCl 1000 MG 1 tablet with meals 12h Active Actos 45 MG Orally Once a day 1 tablet 24h Active Diovan 40 mg Orally Once a day 1 tablet 24h 90 days Active Flomax 0.4 MG Orally Once a day 1 capsule 24h Active Vitamin C 500 mg Orally Once a day 1 tablet 24h Active Insulin Syringe-Needle U-100 28G X 1/2 as directed 24h Jan, Active Claritin 10 mg Orally Once a day 1 tablet as needed 24h Active Ferrous Sulfate 325 (65 Fe) MG Orally 3 times a day 1 tablet 8h 30 days Active Bentyl 10 mg Orally every 6 hrs 1 capsule as needed 6h Active Levemir 100 UNIT/ML Subcutaneous daily 100 units 24h 30 days Active Aspir-81 81 MG Orally Once a day 1 tablet 24h Active RESULTS No Results PROCEDURES No [...] Iron Def. Anemia, Chest pain, DM type 2-[facility] 2616 Hospitalization History Chest pain, illicit drug use-[facility] 03/21/2018
--- OUTSIDE RECORDS SUMMARY | 2019-02-11 12:55 | XMS REPORT ---
Author Author LALO LOPEZ [facility] Address [address] [place] [address] Care Team Providers Care Telegraph Repeater Technician Name Role Phone LALO LOPEZ Unavailable PROBLEMS Type Condition ICD9-CM Code HAU68-FR Code Onset Dates Condition Status SNOMED Code Problem Iron deficiency anemia due to chronic blood loss D50.0 Active 85973079 Problem Pure hypercholesterolemia, unspecified E78.00 Active 420826588 Problem Hypercholesteremia E78.0 Active 576790957 Problem Other male erectile dysfunction N52.8 Active 689020586 Problem Proteinuria R80.9 Active 09194747 Problem Chronic fatigue R53.82 Active 71305947 Problem Environmental allergies Z91.09 Active 339508650 Problem Alcohol abuse F10.10 Active 55275192 Problem Benign prostatic hyperplasia without lower urinary tract symptoms N40.0 Active 720916754 Problem Chronic hepatitis C without hepatic coma B18.2 Active 856479066 Problem Sexual dysfunction R37 Active 83968815 Problem Other iron deficiency anemia D50.8 Active 91502192 Problem Erectile dysfunction N52.9 Active 471432776 Problem Drug abuse and dependence F19.20 Active 0928489 Problem HTN (hypertension) I10 Active 76974137 Problem Type 2 diabetes mellitus with other specified complication E11.69 Active [id number] Problem Chronic obstructive pulmonary disease, unspecified COPD type J44.9 Active 18051762 Problem Epididymitis N45.1 Active 77535857 Problem Dental caries, unspecified K02.9 Active 27632750 Problem Mixed hyperlipidemia E78.2 Active 043713100 Problem Anemia D64.9 Active 634868908 Problem Essential hypertension I10 Active 63888707 Problem 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 Active [id number] ALLERGIES No Information ENCOUNTERS Encounter Location Date Diagnosis [facility] [address] [facility] [id number] [address] Apr, Essential hypertension I10 [facility] [address] [address] 18 Mar, 2018 Essential hypertension I10 [facility] [id number] [place] [address] 67632- 3964 Mar, [facility] [id number] [place] [address] 39758- 3983 Jan, Sebaceous cyst L72.3 [facility] [address] [place] [id number] [place] [address] 44476- 8519 Jan, [facility] [id number] [place] [address] 67297- 7722 Jan, [facility] [id number] [place] [address] 51871- 6099 Jan, Type 2 diabetes mellitus with other [...] anemia due to chronic blood loss D50.0 [facility] [id number] [place] [address] 26282- 0925 Nov, Dental caries K02.9 [facility] [address] [id number] Nov, Dental caries K02.9 [facility] [id number] [place] [address] 85291- 3107 Oct, HTN (hypertension) I10 [facility] [id number] [place] [address] 50489- 9984 Sep, Type 2 diabetes mellitus with other specified complication E11.69 [facility] [address] [place] [address] 86478- 0279 Sep, [facility] [id number] [id number] Aug, HTN (hypertension) I10 ; Type 2 diabetes mellitus with other specified complication E11.69 ; Benign prostatic hyperplasia without lower urinary tract symptoms N40.0 and Other iron deficiency anemia D50.8 [facility] [address] [id number] Aug, [facility] [address] [id number] Aug, [facility] [id number] [place] [address] [id number] Jul, Dental examination Z01.20 [place] [address] 74556- 8124 Jul, Type 2 diabetes mellitus with other specified complication E11.69 [place] [id number] [place] [address] 28481- 7330 May, [place] [id number] [place] [address] 22006- 5008 Apr, Type 2 diabetes mellitus with other specified complication E11.69 ; Proteinuria R80.9 ; HTN (hypertension) I10 ; Erectile dysfunction N52.9 ; Chronic obstructive pulmonary disease, unspecified COPD type J44.9 ; Chronic hepatitis C without hepatic coma B18.2 ; 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 ; Iron deficiency anemia due to chronic blood loss D50.0 and Hypercholesteremia E78.0 [place] [address] [place] [address] 92347- 5760 Mar, Diabetes mellitus E11.9 ; Hypercholesteremia E78.0 and Type 2 diabetes mellitus with other specified complication E11.69 [place] [id number] [place] [address] 53515- 6074 Mar, [place] [id number] [place] [address] 97036- 5555 Mar, Iron deficiency anemia due to chronic blood loss D50.[address] [address] 3955 Mar, Type 2 diabetes mellitus with other specified complication E11.69 and Iron deficiency anemia due to chronic blood loss D50.0 [place] [address] [address] 8720 Mar, Iron deficiency anemia due to chronic blood loss D50.0 [place] [id number] [place] [address] 30016- 0681 February, [place] [id number] [place] [address] 83372- 7323 February, Iron deficiency anemia due to chronic blood loss D50.0 [place] [address] [place] [address] 71179- 1252 February, [place] [id number] [place] [address] 97421- 7936 February, Anemia D64.9 [place] [address] [place] [address] 16436- 7348 February, Anemia D64.9 and 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 [place] [address] [address] 8[address] Jan, Chest discomfort R07.89 ; Type 2 diabetes mellitus with other specified complication E11.69 ; HTN (hypertension) I10 ; Mixed hyperlipidemia E78.2 ; Dyspnea on exertion R06.09 and Tobacco use Z72.0 [place] [address] [address] 2057 Dec, [place] [id number] [place] [address] 54029- 4928 Dec, [place] [address] [address] 6585 Dec, Diabetes mellitus E11.9 ; HTN (hypertension) I10 ; Hypercholesteremia E78.0 ; Alcohol abuse F10.10 ; Proteinuria R80.9 ; Essential hypertension I10 ; Chronic hepatitis C with hepatic coma B18.2 ; Benign nodular prostatic hyperplasia with lower urinary tract symptoms N40.1 and Anemia D64.9 [place] [address] 67317- 2676 Jul, Epididymitis N45.1 and Testicle swelling N50.89 [place] [address] 32660- 1792 Jul, Type 2 diabetes mellitus with other specified complication E11.69 ; Hypercholesteremia E78.0 ; Environmental allergies Z91.09 ; Erectile dysfunction N52.9 ; Alcohol abuse F10.10 ; Drug abuse and dependence F19.20 ; Epididymitis N45.1 ; Essential hypertension I10 and Chronic obstructive pulmonary disease, unspecified COPD type J44.9 [place] [address] 09283- 7756 Jul, [place] [address] 15531- 5616 Jul, Epididymitis, left N45.1 [place] [address] 775142- 2683 February, Diabetes mellitus E11.9 [place] [address] [place] [id number]- 6177 Jan, Dental examination Z01.20 and Dental caries K02.9 [place] [address] 77740- 8113 Jan, Type 2 diabetes mellitus with other specified complication E11.69 ; HTN (hypertension) I10 ; Hypercholesteremia E78.0 ; Alcohol abuse F10.10 ; Proteinuria R80.9 and Dental caries, unspecified K02.9 [place] [address] [place] [id number]- 8211 Dec, [place] [address] 22461- 5570 Dec, Sebaceous cyst L72.3 ; HTN (hypertension) I10 ; Hypercholesteremia E78.0 ; Proteinuria R80.9 and Anemia D64.9 [facility] [id number] [place] [address] 46158- 7392 Dec, Anemia D64.9 [facility] [id number] [place] [address] 02748- 8014 Dec, Physical exam, pre-employment Z02.1 ; Drug abuse and dependence F19.20 ; UTI (urinary tract infection) N39.0 ; Proteinuria R80.9 ; Cellulitis L03.90 and Type 2 diabetes mellitus with other specified complication E11.69 [place] [address] 56541- 9980 29 Nov, 2015 Type 2 diabetes mellitus with other specified complication E11.69 ; Hepatitis C 070.70 ; Proteinuria R80.9 ; Diabetes mellitus E11.9 ; HTN (hypertension) I10 ; Hypercholesteremia E78.0 ; Environmental allergies Z91.09 ; Erectile dysfunction N52.9 and Alcohol abuse F10.10 [facility] [id number] [place] [address] 64559- 6432 Oct, [facility] [address] [id number] Sep, 2015 Encounter for dental examination Z01.20 ; Dental examination Z01.20 and Dental caries K02.9 [place] [id number] [place] [address] 47637- 2695 Aug, Tooth infection K04.7 [facility] [id number] [place] [address] 73164- 1762 Aug, [facility] [address] 45881- 9511 30 Jul, 2015 [facility] [id number] [place] [address] 33535- 9726 Jun, Shoulder pain 719.41 [place] [address] 86242- 3066 Jun, Hepatitis C 070.70 [facility] [id number] [place] [address] 742939- 0458 Jun, Essential hypertension, benign 401.1 ; Psychosexual dysfunction with inhibited sexual excitement 302.72 ; Proteinuria 791.0 ; Unspecified viral hepatitis C without hepatic coma 070.70 ; Diabetes mellitus without mention of complication, type II or unspecified type, uncontrolled 250.02 ; Joint pain 719.40 ; Hepatitis C 070.70 and Hypercholesterolemia 272.0 [facility] [id number] [place] [address] 068676- 4865 Jun, [facility] [id number] [place] [address] 255207- 2790 Apr, [facility] [id number] [place] [address] 91227- 2702 Apr, [facility] [id number] [place] [address] 31270- 8636 Mar, [facility] [id number] [place] [address] 94893- 8149 Jan, [facility] [id number] [place] [address] [id number]- 6052 Jan, [facility] [id number] [place] [address] 40074- 9182 Dec, [facility] [id number] [place] [address] 56894- 5788 Dec, [facility] [id number] [place] [address] 845969- 6184 Dec, [facility] [id number] [place] [address] 021119- 3878 Dec, [facility] [address] [place] [address] 369576- 1798 Jun, [facility] [id number] [place] [address] [id number]- 6862 Jun, [facility] [place] [facility] [address] [id number] [place] [address]- 4353 Jun, [facility] [place] [facility] [address] [id number] [place] [address]- 2656 Jun, [facility] [place] [facility] [address] [id number] [place] [address]- 7738 February, [facility] [place] [facility] [address] [id number] [place] [address]- 3393 February, [facility] [place] [facility] [address] [id number] [place] [address]- 3891 February, [facility] [place] [facility] [address] [id number] [place] [address]- 9706 February, [facility] [place] [facility] [address] [id number] [place] [address]- 9568 February, [facility] [place] [facility] [address] [id number] [place] [address]- 1459 Dec, [facility] [place] [facility] [address] [id number] [place] [address]- 6107 Dec, [facility] [place] [facility] [address] [id number] [place] [address]- 1015 Oct, [facility] [place] [facility] [address] [id number] [place] [address]- 3064 Oct, [facility] [place] [facility] [address] [id number] [place] [address]- 7273 Sep, [facility] [place] [facility] [address] [id number] [place] [address]- 2546 Sep, [facility] [place] [facility] [address] [id number] [place] [address]- 6256 Jul, [facility] [place] [facility] [address] [id number] [place] [address]- 2546 Jul, [facility] [place] [facility] [address] [id number] [place] [address]- 5227 15 Jul, 2013 [facility] [address] [id number] [place] [address]- 4848 15 Jul, 2013 [facility] [address] [id number] [place] [address]- 4722 24 Jun, 2013 [facility] [address] [id number] [place] [address]- 2855 Jun, [facility] [address] [id number] [place] [address]- 6744 Apr, [facility] [address] [id number] [place] 7322 Apr, [facility] [address] [id number] [place] [address]- 9562 Mar, [facility] [address] [id number] [place] [address]- 0803 February, [facility] [address] [id number] [place] [address]- 1175 February, [facility] [address] [id number] [place] [address]- 3647 February, [facility] [address] [id number] [place] [address]- 1609 February, [facility] [address] [id number] [place] [address]- 8488 February, [facility] [address] [id number] [place] [address]- 5154 February, [facility] [address] [id number] [place] [address]- 1008 February, [facility] [address] [id number] [place] [address]- 7606 February, [facility] [address] [id number] [place] [address]- 3248 Dec, [facility] [address] [id number] [place] [address]- 9183 Nov, 2012 [facility] [place] [facility] [address] [id number] [place] [address]- 8966 Nov, [facility] [place] [facility] [address] [id number] [place] [address]- 5079 Nov, [facility] [place] [facility] [address] [id number] [place] [address]- 9477 Oct, [facility] [place] [facility] [address] [id number] [place] [address]- 8574 Sep, [facility] [place] [facility] [address] [id number] [place] [address]- 3025 Sep, [facility] [place] [facility] [address] [id number] [place] [address]- 0325 Sep, [facility] [place] [facility] [address] [id number] [place] [address]- 7985 Sep, [facility] [place] [facility] [address] [id number] [place] [address]- 4185 Sep, [facility] [place] [facility] [address] [id number] [place] [address]- 6522 Sep, [facility] [place] [facility] [address] [id number] [place] [address]- 8454 Sep, [facility] [place] [facility] [address] [id number] [place] [address]- 4193 Sep, [facility] [place] [facility] [address] [id number] [place] [address]- 0322 Sep, [facility] [place] [facility] [address] [id number] [place] [address]- 9826 Sep, [facility] [place] [facility] [address] [id number] [place] [address]- 7876 Sep, [facility] [place] [facility] [address] [id number] [address]- 2546 Sep, [facility] [address] [facility] [id number] [address]- 2546 Aug, IMMUNIZATIONS No Known Immunizations SOCIAL HISTORY Never Assessed REASON FOR VISIT Refill request PLAN OF CARE VITAL SIGNS MEDICATIONS Medication Instructions Dosage Frequency Start Date End Date Duration Status Losartan Potassium 50 mg Orally Once a day 1 tablet 24h Apr, 30 day(s) Active RESULTS No Results PROCEDURES No Known [...] Anemia, Chest pain, DM type 2-[facility] [place] [facility] 2616 Hospitalization History Chest pain, illicit drug use-[facility] [place] [facility] 03/21/2018
--- OUTSIDE RECORDS SUMMARY | 2019-02-11 12:55 | XMS REPORT ---
Author Author LALO LOEPZ Organization [facility] Address [address] [place] [address] Care Team Providers Care Counselor/Art Therapist Name Role Phone LALO LOPEZ Unavailable PROBLEMS Type Condition ICD9-CM Code XLE74-BT Code Onset Dates Condition Status SNOMED Code Problem Iron deficiency anemia due to chronic blood loss D50.0 Active 06550090 Problem Pure hypercholesterolemia, unspecified E78.00 Active 540005264 Problem Hypercholesteremia E78.0 Active 364105730 Problem Other male erectile dysfunction N52.8 Active 126439722 Problem Proteinuria R80.9 Active 22203257 Problem Chronic fatigue R53.82 Active 63193821 Problem Environmental allergies Z91.09 Active 987524652 Problem Alcohol abuse F10.10 Active 20006833 Problem Benign prostatic hyperplasia without lower urinary tract symptoms N40.0 Active 464006387 Problem Chronic hepatitis C without hepatic coma B18.2 Active 217397133 Problem Sexual dysfunction R37 Active 50093705 Problem Other iron deficiency anemia D50.8 Active 11685231 Problem Erectile dysfunction N52.9 Active 178209113 Problem Drug abuse and dependence F19.20 Active 3904497 Problem HTN (hypertension) I10 Active 94885932 Problem Type 2 diabetes mellitus with other specified complication E11.69 Active 722522845229799 Problem Chronic obstructive pulmonary disease, unspecified COPD type J44.9 Active 84602224 Problem Epididymitis N45.1 Active 80464220 Problem Dental caries, unspecified K02.9 Active 77222182 Problem Mixed hyperlipidemia E78.2 Active 888471199 Problem Anemia D64.9 Active 128884191 Problem Essential hypertension I10 Active 38009559 Problem 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 Active [id number] ALLERGIES Substance Reaction Event Type Date Status Topamax nausea Drug Allergy Mar, Active ENCOUNTERS Encounter Location Date Diagnosis [facility] [address] [facility] [id number] [address] Apr, Essential hypertension I10 [facility] [id number] [address] Mar, Essential hypertension I10 [facility] [id number] [place] [address] 34534- 9186 Mar, [facility] [id number] [place] [address] 80768- 2405 Jan, Sebaceous cyst L72.3 [facility] [id number] [place] [address] 49728- 9256 Jan, [facility] [id number] [place] [address] 83281- 2538 Jan, [facility] [address] [place] [address] 32201- 3995 Jan, Type 2 diabetes mellitus with other [...] anemia due to chronic blood loss D50.0 [facility] [address] [place] [address] 81076- 1387 Nov, Dental caries K02.9 [facility] [address] [place] [address] [id number] Nov, Dental caries K02.9 [facility] [address] [place] [address] 87800- 3959 Oct, HTN (hypertension) I10 [facility] [address] [place] [address] 75669- 8588 Sep, Type 2 diabetes mellitus with other specified complication E11.69 [facility] [id number] [place] [address] 41762- 4899 Sep, [facility] [address] [address] [address] Aug, HTN (hypertension) I10 ; Type 2 diabetes mellitus with other specified complication E11.69 ; Benign prostatic hyperplasia without lower urinary tract symptoms N40.0 and Other iron deficiency anemia D50.8 [facility] [id number] [id number] Aug, [facility] [id number] [id number] Aug, [facility] [id number] [place] [address] [id number] Jul, Dental examination Z01.20 [facility] [id number] [place] [address] 06810- 9561 Jul, Type 2 diabetes mellitus with other specified complication E11.69 [facility] [id number] [place] [address] 21029- 7463 May, [facility] [id number] [place] [address] 98958- 7292 Apr, Type 2 diabetes mellitus with other specified complication E11.69 ; Proteinuria R80.9 ; HTN (hypertension) I10 ; Erectile dysfunction N52.9 ; Chronic obstructive pulmonary disease, unspecified COPD type J44.9 ; Chronic hepatitis C without hepatic coma B18.2 ; 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 ; Iron deficiency anemia due to chronic blood loss D50.0 and Hypercholesteremia E78.0 [facility] [id number] [address] Mar, Diabetes mellitus E11.9 ; Hypercholesteremia E78.0 and Type 2 diabetes mellitus with other specified complication E11.69 [facility] [address] [address] 46[address] Mar, [facility] [id number] [place] [address] 82256- 7832 Mar, Iron deficiency anemia due to chronic blood loss D50.0 [facility] [address] [address] 9837 Mar, Type 2 diabetes mellitus with other specified complication E11.69 and Iron deficiency anemia due to chronic blood loss D50.0 [facility] [facility] [address] [address] 86[address] Mar, Iron deficiency anemia due to chronic blood loss D50.0 [facility] [id number] [place] [address] 00501- 4131 February, [facility] [id number] [place] [address] 75873- 6457 February, Iron deficiency anemia due to chronic blood loss D50.0 [facility] [address] [place] [address] 26508- 2673 February, [facility] [id number] [place] [address] 81603- 0758 February, Anemia D64.9 [facility] [id number] [place] [address] 18745- 3012 February, Anemia D64.9 and 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 [facility] [address] [address] 6[address] Jan, Chest discomfort R07.89 ; Type 2 diabetes mellitus with other specified complication E11.69 ; HTN (hypertension) I10 ; Mixed hyperlipidemia E78.2 ; Dyspnea on exertion R06.09 and Tobacco use Z72.0 [facility] [address] [address] 1043 Dec, [facility] [id number] [place] [address] 95593- 5603 Dec, [facility] [address] [address] 9530 Dec, Diabetes mellitus E11.9 ; HTN (hypertension) I10 ; Hypercholesteremia E78.0 ; Alcohol abuse F10.10 ; Proteinuria R80.9 ; Essential hypertension I10 ; Chronic hepatitis C with hepatic coma B18.2 ; Benign nodular prostatic hyperplasia with lower urinary tract symptoms N40.1 and Anemia D64.9 [facility] [address] [address]- [address] 24 Jul, 2016 Epididymitis N45.1 and Testicle swelling N50.89 [facility] [address] 08157- 9135 Jul, Type 2 diabetes mellitus with other specified complication E11.69 ; Hypercholesteremia E78.0 ; Environmental allergies Z91.09 ; Erectile dysfunction N52.9 ; Alcohol abuse F10.10 ; Drug abuse and dependence F19.20 ; Epididymitis N45.1 ; Essential hypertension I10 and Chronic obstructive pulmonary disease, unspecified COPD type J44.9 [facility] [address] 87832- 4870 Jul, [facility] [address] 55979- 4022 Jul, Epididymitis, left N45.1 [facility] [address] 74856- 5535 February, Diabetes mellitus E11.9 [facility] [address] 92495- 6843 Jan, Dental examination Z01.20 and Dental caries K02.9 [facility] [address] 88933- 7471 Jan, Type 2 diabetes mellitus with other specified complication E11.69 ; HTN (hypertension) I10 ; Hypercholesteremia E78.0 ; Alcohol abuse F10.10 ; Proteinuria R80.9 and Dental caries, unspecified K02.9 [facility] [address] 67682- 5055 Dec, [facility] [address] 99044- 4580 Dec, Sebaceous cyst L72.3 ; HTN (hypertension) I10 ; Hypercholesteremia E78.0 ; Proteinuria R80.9 and Anemia D64.9 [facility] [id number] [place] [address] 71574- 8036 Dec, Anemia D64.9 [facility] [id number] [place] [address] 43672- 4231 Dec, Physical exam, pre-employment Z02.1 ; Drug abuse and dependence F19.20 ; UTI (urinary tract infection) N39.0 ; Proteinuria R80.9 ; Cellulitis L03.90 and Type 2 diabetes mellitus with other specified complication E11.69 [facility] [address] 74282- 8280 29 Nov, 2015 Type 2 diabetes mellitus with other specified complication E11.69 ; Hepatitis C 070.70 ; Proteinuria R80.9 ; Diabetes mellitus E11.9 ; HTN (hypertension) I10 ; Hypercholesteremia E78.0 ; Environmental allergies Z91.09 ; Erectile dysfunction N52.9 and Alcohol abuse F10.10 [facility] [address] [address]- 7834 Oct, [facility] [address] [id number] Sep, Encounter for dental examination Z01.20 ; Dental examination Z01.20 and Dental caries K02.9 [facility] [id number] [place] [address] 46461- 9813 Aug, Tooth infection K04.7 [facility] [address] 25729- 5890 Aug, [facility] [address] 85179- 3234 30 Jul, 2015 [facility] [address] 68949- 6599 Jun, Shoulder pain 719.41 [facility] [id number] [address] 9655 Jun, Hepatitis C 070.70 [facility] [id number] [place] [address] 20757- 4805 Jun, Essential hypertension, benign 401.1 ; Psychosexual dysfunction with inhibited sexual excitement 302.72 ; Proteinuria 791.0 ; Unspecified viral hepatitis C without hepatic coma 070.70 ; Diabetes mellitus without mention of complication, type II or unspecified type, uncontrolled 250.02 ; Joint pain 719.40 ; Hepatitis C 070.70 and Hypercholesterolemia 272.0 [facility] [id number] [address]- 9948 Jun, [facility] [id number] [place] [address] 64468- 9532 Apr, [facility] [id number] [place] [address] 60507- 6307 Apr, [facility] [id number] [place] [address] 87677- 4939 Mar, [facility] [address] [place] [address] 75388- 3273 Jan, [facility] [id number] [place] [address] 31321- 6428 Jan, [facility] [address] [address]- 9300 Dec, [facility] [id number] [address]- 6418 Dec, [facility] [address] [address]- 5768 Dec, [facility] [address] [place] [address] [id number]- 7545 Dec, [facility] [address] [address] 6502 Jun, [facility] [address] [address]- 8176 Jun, [facility] [address] [id number] [place] [address]- 0442 Jun, [facility] [address] [id number] [place] [address]- 4156 Jun, [facility] [address] [id number] [place] [address]- 0482 February, [facility] [address] [id number] [place] [address]- 1514 February, [facility] [address] [id number] [place] [address]- 1771 February, [facility] [address] [id number] [place] [address]- 6869 February, [facility] [address] [id number] [place] [address]- 0541 February, [facility] [address] [id number] [place] [address]- 6409 Dec, [facility] [address] [id number] [place] [address]- 2952 Dec, [facility] [address] [id number] [place] [address]- 3415 Oct, [facility] [address] [id number] [place] [address]- 1486 Oct, [facility] [address] [id number] [place] [address]- 7602 Sep, [facility] [place] [facility] [address] [id number] [place] [address]- 7806 Sep, [facility] [place] [facility] [address] [id number] [place] [address]- 7376 Jul, [facility] [address] [id number] [place] [address]- 3244 Jul, [facility] [address] [id number] [place] [address]- 0636 Jul, [facility] [place] [facility] [address] [id number] [place] [address]- 8353 Jul, [facility] [address] [id number] [place] [address]- 2863 Jun, [facility] [place] [facility] [address] [id number] [place] [address]- 0298 Jun, [facility] [address] [id number] [place] [address]- 9582 Apr, [facility] [place] [facility] [address] [id number] [place] [address]- 1572 Apr, [facility] [address] [id number] [place] [address]- 4442 Mar, [facility] [address] [id number] [place] [address]- 0941 February, [facility] [place] [facility] [address] [id number] [place] [address]- 3158 February, [facility] [address] [id number] [address]- 0501 February, [facility] [place] [facility] [address] [id number] [address]- 8540 February, [facility] [place] [facility] [address] [id number] [place] [address]- 3633 February, [facility] [place] [facility] [address] [id number] [place] [address]- 1116 February, [facility] [place] [facility] [address] [id number] [place] [address]- 9856 February, [facility] [place] [facility] [address] [id number] [place] [address]- 7860 February, [facility] [place] [facility] [address] [id number] [place] [address]- 3893 05 Dec, 2012 [facility] [address] [id number] [place] [address]- 4926 Nov, 2012 [facility] [address] [id number] [place] [address]- 0786 Nov, [facility] [address] [id number] [place] [address]- 2546 Nov, [facility] [address] [id number] [place] [address]- 4916 Oct, [facility] [address] [id number] [place] [address]- 1765 Sep, [facility] [address] [id number] [place] [address]- 6026 Sep, [facility] [address] [id number] [place] [address]- 1426 Sep, [facility] [address] [id number] [place] [address]- 6780 Sep, [facility] [address] [id number] [place] [address]- 6176 Sep, [facility] [address] [facility] [id number] [place] [address]- 2142 Sep, [facility] [address] [id number] [place] [address]- 2516 05 Sep, 2012 [facility] [place] [facility] [address] [id number] [place] [address]- 2546 05 Sep, 2012 [facility] [place] [facility] [address] [id number] [place] [address]- 4846 04 Sep, 2012 [facility] [place] [facility] [address] [id number] [place] [address]- 7206 04 Sep, 2012 [facility] [address] [id number] [place] [address]- 3926 Sep, [facility] [address] [facility] [id number] [address]- 1847 Sep, [facility] [address] [facility] [id number] [place] [address]- 5093 Aug, IMMUNIZATIONS No Known Immunizations SOCIAL HISTORY Never Assessed REASON FOR VISIT [facility] follow up- was in hospial for hypertention--- Gayatri Berg RN PLAN OF CARE VITAL SIGNS Height 70 in 2018-03-31 Weight 235 lbs 2018-03-31 Temperature 98.2 degrees Fahrenheit 2018-03-31 Heart Rate 80 bpm 2018-03-31 Respiratory Rate 18 2018-03-31 BMI 33.72 kg/m2 2018-03-31 Blood pressure systolic 134 mmHg 2018-03-31 Blood pressure diastolic 78 mmHg 2018-03-31 MEDICATIONS Medication Instructions Dosage Frequency Start Date End Date Duration Status Ferrous Sulfate 325 (65 Fe) MG Orally 3 times a day 1 tablet 8h 30 days Active Claritin 10 mg Orally Once a day 1 tablet as needed 24h Active Proventil HFA 108 (90 Base) MCG/ACT Inhalation every 4 hrs 2 puffs as needed 4h 16 Dec, 2016 Active Pravastatin Sodium 20 mg Orally Once a day 1 tablet 24h Active Flomax 0.4 MG Orally Once a day 1 capsule 24h Active Vitamin C 500 mg Orally Once a day 1 tablet 24h Active Aspir-81 81 MG Orally Once a day 1 tablet 24h Not-Taking Insulin Syringe-Needle U-100 28G X 1/2 as directed 24h Jan, Active Levemir 100 UNIT/ML Subcutaneous daily 100 units 24h 30 days Active Viagra 100 MG Orally Once a day 1 tablet as needed 24h Active Carafate 1 GM Orally 4 times a day 1 tablet 6h Active Acidophilus - Orally 4 times per day 2 capsults Not-Taking Metformin HCl 1000 MG 1 tablet with meals 12h Active Diovan 80 MG Orally Once a day 1 tablet 24h 90 days Active Protonix 40 mg Orally BID for two weeks and then once a week after. 1 tablet Active Actos 45 MG Orally Once a day 1 tablet 24h Active Bentyl 10 mg Orally every 6 hrs 1 capsule as needed 6h Not-Taking RESULTS No Results PROCEDURES No Known procedures [...] Iron Def. Anemia, Chest pain, DM type 2-[facility] 2616 Hospitalization History Chest pain, illicit drug use-[facility] 03/21/2018
--- OUTSIDE RECORDS SUMMARY | 2019-02-11 12:56 | XMS REPORT ---
Author Author LALO LOPEZ Organization [facility] Address [address] [place] [address] Care Team Providers Care Supervising Editor News Reel Name Role Phone LALO LOPEZ Unavailable PROBLEMS Type Condition ICD9-CM Code KKB38-LI Code Onset Dates Condition Status SNOMED Code Problem Iron deficiency anemia due to chronic blood loss D50.0 Active 42055469 Problem Pure hypercholesterolemia, unspecified E78.00 Active 070761895 Problem Hypercholesteremia E78.0 Active 862500285 Problem Other male erectile dysfunction N52.8 Active 824051686 Problem Proteinuria R80.9 Active 24196538 Problem Chronic fatigue R53.82 Active 55737947 Problem Environmental allergies Z91.09 Active 357069268 Problem Alcohol abuse F10.10 Active 01629713 Problem Benign prostatic hyperplasia without lower urinary tract symptoms N40.0 Active 243982232 Problem Chronic hepatitis C without hepatic coma B18.2 Active 280916626 Problem Sexual dysfunction R37 Active 22299952 Problem Other iron deficiency anemia D50.8 Active 19713551 Problem Erectile dysfunction N52.9 Active 986131779 Problem Drug abuse and dependence F19.20 Active 2019232 Problem HTN (hypertension) I10 Active 35939173 Problem Type 2 diabetes mellitus with other specified complication E11.69 Active 268521573914809 Problem Chronic obstructive pulmonary disease, unspecified COPD type J44.9 Active 76792344 Problem Epididymitis N45.1 Active 02599623 Problem Dental caries, unspecified K02.9 Active 21748823 Problem Mixed hyperlipidemia E78.2 Active 803424523 Problem Anemia D64.9 Active 902684599 Problem Essential hypertension I10 Active 08763178 Problem 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 Active [id number] ALLERGIES Substance Reaction Event Type Date Status Topamax nausea Drug Allergy Jan, Active ENCOUNTERS Encounter Location Date Diagnosis [facility] [address] [facility] [id number] [address] Apr, Essential hypertension I10 [facility] [address] [address] Mar, Essential hypertension I10 [facility] [id number] [place] [address] 23084- 2369 Mar, [facility] [id number] [place] [address] 36398- 7086 Jan, Sebaceous cyst L72.3 [facility] [id number] [place] [address] 98204- 3505 Jan, [facility] [id number] [place] [address] 59871- 7827 Jan, [facility] [id number] [place] [address] 74668- 9362 Jan, Type 2 diabetes mellitus with other [...] anemia due to chronic blood loss D50.0 [facility] [id number] [place] [address] 41306- 8301 Nov, Dental caries K02.9 [facility] [id number] [place] [address] [id number] Nov, Dental caries K02.9 [facility] [id number] [place] [address] 30269- 5221 Oct, HTN (hypertension) I10 [facility] [id number] [place] [address] 92012- 7789 Sep, Type 2 diabetes mellitus with other specified complication E11.69 [facility] [id number] [place] [address] 80044- 1504 Sep, [facility] [address] Aug, HTN (hypertension) I10 ; Type 2 diabetes mellitus with other specified complication E11.69 ; Benign prostatic hyperplasia without lower urinary tract symptoms N40.0 and Other iron deficiency anemia D50.8 [facility] [id number] [id number] Aug, [facility] [address] [id number] Aug, [facility] [id number] [place] [address] [id number] Jul, Dental examination Z01.20 [facility] [id number] [place] [address] 11010- 9091 Jul, Type 2 diabetes mellitus with other specified complication E11.69 [facility] [id number] [place] [address] 27153- 0581 May, [facility] [id number] [place] [address] 83067- 9195 Apr, Type 2 diabetes mellitus with other specified complication E11.69 ; Proteinuria R80.9 ; HTN (hypertension) I10 ; Erectile dysfunction N52.9 ; Chronic obstructive pulmonary disease, unspecified COPD type J44.9 ; Chronic hepatitis C without hepatic coma B18.2 ; 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 ; Iron deficiency anemia due to chronic blood loss D50.0 and Hypercholesteremia E78.0 [facility] [id number] [address] 2410 Mar, Diabetes mellitus E11.9 ; Hypercholesteremia E78.0 and Type 2 diabetes mellitus with other specified complication E11.69 [facility] [address], [place] [address] 8566 Mar, [facility] [id number] [place] [address] 91014- 1269 Mar, Iron deficiency anemia due to chronic blood loss D50.0 [facility] [address], [place] [address] 2996 Mar, Type 2 diabetes mellitus with other specified complication E11.69 and Iron deficiency anemia due to chronic blood loss D50.0 [facility] [id number] [address] 3364 Mar, Iron deficiency anemia due to chronic blood loss D50.0 [facility] [id number] [place] [address] 17982- 5125 February, [facility] [id number] [place] [address] 58753- 7930 February, Iron deficiency anemia due to chronic blood loss D50.0 [facility] [address] [place] [address] 74726- 8817 February, [facility] [id number] [place] [address] 68941- 4945 February, Anemia D64.9 [facility] [id number] [place] [address] 05489- 0687 February, Anemia D64.9 and 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 [facility] [address], [place] [address] 3[address] Jan, Chest discomfort R07.89 ; Type 2 diabetes mellitus with other specified complication E11.69 ; HTN (hypertension) I10 ; Mixed hyperlipidemia E78.2 ; Dyspnea on exertion R06.09 and Tobacco use Z72.0 [facility] [address] [address] 0140 Dec, [facility] [id number] [place] [address] 50090- 0332 Dec, [facility] [address], [place] [address]30 Dec, Diabetes mellitus E11.9 ; HTN (hypertension) I10 ; Hypercholesteremia E78.0 ; Alcohol abuse F10.10 ; Proteinuria R80.9 ; Essential hypertension I10 ; Chronic hepatitis C with hepatic coma B18.2 ; Benign nodular prostatic hyperplasia with lower urinary tract symptoms N40.1 and Anemia D64.9 [facility] [address] [address]253- 4620 24 Jul, 2016 Epididymitis N45.1 and Testicle swelling N50.89 [facility] [address] 71354- 5382 Jul, Type 2 diabetes mellitus with other specified complication E11.69 ; Hypercholesteremia E78.0 ; Environmental allergies Z91.09 ; Erectile dysfunction N52.9 ; Alcohol abuse F10.10 ; Drug abuse and dependence F19.20 ; Epididymitis N45.1 ; Essential hypertension I10 and Chronic obstructive pulmonary disease, unspecified COPD type J44.9 [facility] [address] 70162- 5763 Jul, [facility] [address] 58233- 8090 Jul, Epididymitis, left N45.1 [facility] [address] 09862- 0579 February, Diabetes mellitus E11.9 [facility] [address] 66764- 9348 Jan, Dental examination Z01.20 and Dental caries K02.9 [facility] [address] 00875- 3919 Jan, Type 2 diabetes mellitus with other specified complication E11.69 ; HTN (hypertension) I10 ; Hypercholesteremia E78.0 ; Alcohol abuse F10.10 ; Proteinuria R80.9 and Dental caries, unspecified K02.9 [facility] [address] 98072- 1466 Dec, [facility] [address] 11522- 3386 Dec, Sebaceous cyst L72.3 ; HTN (hypertension) I10 ; Hypercholesteremia E78.0 ; Proteinuria R80.9 and Anemia D64.9 [facility] [id number] [place] [address] 13440- 7670 Dec, Anemia D64.9 [facility] [id number] [place] [address] 36124- 0962 Dec, Physical exam, pre-employment Z02.1 ; Drug abuse and dependence F19.20 ; UTI (urinary tract infection) N39.0 ; Proteinuria R80.9 ; Cellulitis L03.90 and Type 2 diabetes mellitus with other specified complication E11.69 [facility] [address] 83621- 2607 29 Nov, 2015 Type 2 diabetes mellitus with other specified complication E11.69 ; Hepatitis C 070.70 ; Proteinuria R80.9 ; Diabetes mellitus E11.9 ; HTN (hypertension) I10 ; Hypercholesteremia E78.0 ; Environmental allergies Z91.09 ; Erectile dysfunction N52.9 and Alcohol abuse F10.10 [facility] [address] 01383- 0472 Oct, [facility] [address] [id number] Sep, Encounter for dental examination Z01.20 ; Dental examination Z01.20 and Dental caries K02.9 [facility] [id number] [place] [address] 93558- 1433 Aug, Tooth infection K04.7 [facility] [address] 52507- 6568 Aug, [facility] [address] 76742- 5382 30 Jul, 2015 [facility] [address] 77291- 1930 Jun, Shoulder pain 719.41 [facility] [id number] [address]- 6990 Jun, Hepatitis C 070.70 [facility] [id number] [place] [address] 80949- 4216 Jun, Essential hypertension, benign 401.1 ; Psychosexual dysfunction with inhibited sexual excitement 302.72 ; Proteinuria 791.0 ; Unspecified viral hepatitis C without hepatic coma 070.70 ; Diabetes mellitus without mention of complication, type II or unspecified type, uncontrolled 250.02 ; Joint pain 719.40 ; Hepatitis C 070.70 and Hypercholesterolemia 272.0 [facility] [id number] [address]- 8852 Jun, [facility] [id number] [place] [address] 08495- 4844 Apr, [facility] [id number] [place] [address] 50529- 4003 Apr, [facility] [id number] [place] [address] 14951- 9580 Mar, [facility] [address] [place] [address] 01819- 1745 Jan, [facility] [id number] [place] [address] 52535- 4113 Jan, [facility] [address], [place] [address]- 4138 Dec, [facility] [id number] [address]- 7237 Dec, [facility] [address], [place] [address]- 7913 Dec, [facility] [address] [place] [address] [id number]- 5230 Dec, [facility] [address] [address] 99[address] Jun, [facility] [address] [place] [address]- 0732 Jun, [facility] [address] [id number] [place] [address]- 0289 Jun, [facility] [address] [id number] [place] [address]- 6736 Jun, [facility] [address] [id number] [place] [address]- 6661 February, [facility] [address] [id number] [place] [address]- 0556 February, [facility] [address] [id number] [place] [address]- 5529 February, [facility] [address] [id number] [place] [address]- 5271 February, [facility] [address] [id number] [place] [address]- 0106 February, [facility] [address] [id number] [place] [address]- 7215 Dec, [facility] [address] [id number] [place] [address]- 4349 Dec, [facility] [address] [id number] [place] [address]- 6876 Oct, [facility] [address] [id number] [place] [address]- 8422 Oct, [facility] [address] [id number] [place] [address]- 0908 Sep, [facility] [place] [facility] [address] [id number] [place] [address]- 6588 Sep, [facility] [place] [facility] [address] [id number] [place] [address]- 2776 Jul, [facility] [address] [id number] [place] [address]- 2781 Jul, [facility] [address] [id number] [place] [address]- 8094 Jul, [facility] [place] [facility] [address] [id number] [place] [address]- 9289 Jul, [facility] [address] [id number] [place] [address]- 3470 Jun, [facility] [place] [facility] [address] [id number] [place] [address]- 3939 Jun, [facility] [address] [id number] [place] [address]- 5703 Apr, [facility] [place] [facility] [address] [id number] [place] [address]- 9554 Apr, [facility] [address] [id number] [place] [address]- 4763 Mar, [facility] [address] [id number] [place] [address]- 7746 February, [facility] [place] [facility] [address] [id number] [place] [address]- 1509 February, [facility] [address] [id number], [place] [address]- 8880 February, [facility] [place] [facility] [address] [id number], [place] [address]- 1954 February, [facility] [place] [facility] [address] [id number], [place] [address]- 5339 February, [facility] [place] [facility] [address] [id number] [place] [address]- 9965 February, [facility] [place] [facility] [address] [id number] [place] [address]- 1256 February, [facility] [place] [facility] [address] [id number], [place] [address]- 7619 February, [facility] [place] [facility] [address] [id number], [place] [address]- 5491 05 Dec, 2012 [facility] [address] [id number] [place] [address]- 1896 Nov, 2012 [facility] [address] [id number] [place] [address]- 8656 Nov, [facility] [address] [id number] [place] [address]- 2546 Nov, [facility] [address] [id number] [place] [address]- 0706 Oct, [facility] [address] [id number] [place] [address]- 3759 Sep, [facility] [address] [id number] [place] [address]- 4006 Sep, [facility] [address] [id number] [place] [address]- 1366 Sep, [facility] [address] [id number] [place] [address]- 8377 Sep, [facility] [address] [id number] [place] [address]- 5096 Sep, [facility] [address] [facility] [id number] [place] [address]- 8644 Sep, [facility] [address] [id number] [place] [address]- 2846 05 Sep, 2012 [facility] [place] [facility] [address] [id number] [place] [address]- 2546 05 Sep, 2012 [facility] [place] [facility] [address] [id number] [place] [address]- 7086 04 Sep, 2012 [facility] [place] [facility] [address] [id number] [place] [address]- 5676 04 Sep, 2012 [facility] [address] [id number] [place] [address]- 2955 Sep, [facility] [address] [facility] [id number] [place] [address]- 4071 Sep, [facility] [address] [facility] [id number], [place] [address]- 2377 Aug, IMMUNIZATIONS No Known Immunizations SOCIAL HISTORY Never Assessed REASON FOR VISIT Cyst removal WB-MA PLAN OF CARE Activity Details Follow Up 10 days Reason:suture removal Future/Pending Procedure SEBACEOUS CYST REMOVAL VITAL SIGNS Height 70 in 2018-01-28 Weight 248 lbs 2018-01-28 Temperature 98.6 degrees Fahrenheit 2018-01-28 Heart Rate 90 bpm 2018-01-28 Respiratory Rate 18 2018-01-28 BMI 35.58 kg/m2 2018-01-28 Blood pressure systolic 124 mmHg 2018-01-28 Blood pressure diastolic 84 mmHg 2018-01-28 MEDICATIONS Medication Instructions Dosage Frequency Start Date End Date Duration Status Carafate 1 GM Orally 4 times a day 1 tablet 6h Active Lantus 100 UNIT/ML Subcutaneous Once a day inject 100 units 24h Jan, Active Actos 45 MG Orally Once a day 1 tablet 24h Active Ferrous Sulfate 325 (65 Fe) MG Orally 3 times a day 1 tablet 8h 30 days Active Metformin HCl 1000 MG 1 tablet with meals 12h Active Levemir 100 UNIT/ML Subcutaneous daily 100 units 24h 30 days Not- Taking Viagra 100 MG Orally Once a day 1 tablet as needed 24h Not-Taking Flomax 0.4 MG Orally Once a day 1 capsule 24h Active Proventil HFA 108 (90 Base) MCG/ACT Inhalation every 4 hrs 2 puffs as needed 4h 16 Dec, 2016 Active Diovan 40 mg Orally Once a day 1 tablet 24h 90 days Active Insulin Syringe/Needle 28G X 1/2 for use with Levemir 2 times a day 1 Syringe 12h Dec, 30 days Not-Taking Pravastatin Sodium 20 mg Orally Once a day 1 tablet 24h Active Insulin Syringe-Needle U-100 28G X 1/2 as directed 24h Jan, Active Claritin 10 mg Orally Once a day 1 tablet 24h Not-Taking RESULTS No Results PROCEDURES No Known [...] Iron Def. Anemia, Chest pain, DM type 2-[facility] 2616 Hospitalization History Chest pain, illicit drug use-[facility] 03/21/2018
--- OUTSIDE RECORDS SUMMARY | 2019-02-11 12:56 | XMS REPORT ---
Author Author LALO LOPEZ [facility] Address [address] [place] [address] Care Team Providers Care Cloth Hand Name Role Phone LALO LOPEZ Unavailable PROBLEMS Type Condition ICD9-CM Code [id number] Code Onset Dates Condition Status SNOMED Code Problem Iron deficiency anemia due to chronic blood loss D50.0 Active 49158632 Problem Pure hypercholesterolemia, unspecified E78.00 Active 409752390 Problem Hypercholesteremia E78.0 Active 553663997 Problem Other male erectile dysfunction N52.8 Active 343179543 Problem Proteinuria R80.9 Active 54040943 Problem Chronic fatigue R53.82 Active 31988940 Problem Environmental allergies Z91.09 Active 082647171 Problem Alcohol abuse F10.10 Active 64581310 Problem Benign prostatic hyperplasia without lower urinary tract symptoms N40.0 Active 927482724 Problem Chronic hepatitis C without hepatic coma B18.2 Active 536020860 Problem Sexual dysfunction R37 Active 95760296 Problem Other iron deficiency anemia D50.8 Active 97428945 Problem Erectile dysfunction N52.9 Active 237368913 Problem Drug abuse and dependence F19.20 Active 4658161 Problem HTN (hypertension) I10 Active 93969118 Problem Type 2 diabetes mellitus with other specified complication E11.69 Active [id number] Problem Chronic obstructive pulmonary disease, unspecified COPD type J44.9 Active 59902385 Problem Epididymitis N45.1 Active 94393894 Problem Dental caries, unspecified K02.9 Active 54627994 Problem Mixed hyperlipidemia E78.2 Active 910836963 Problem Anemia D64.9 Active 773412061 Problem Essential hypertension I10 Active 21335354 Problem 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 Active [id number] ALLERGIES No Information ENCOUNTERS Encounter Location Date Diagnosis [facility] [address] [facility] [id number] [address] Apr, Essential hypertension I10 [facility] [address] [address] 18 Mar, 2018 Essential hypertension I10 [facility] [id number] [place] [address] 01931- 9147 Mar, [facility] [id number] [place] [address] 07459- 4808 Jan, Sebaceous cyst L72.3 [facility] [id number] [place] [address] 15022- 1443 Jan, [facility] [id number] [place] [address] 40206- 7173 Jan, [facility] [id number] [place] [address] 00485- 7246 Jan, Type 2 diabetes mellitus with other [...] anemia due to chronic blood loss D50.0 [facility] [address] [place] [address] 56839- 3930 Nov, Dental caries K02.9 [facility] [address] [id number] Nov, Dental caries K02.9 [facility] [id number] [place] [address] 36724- 1938 Oct, HTN (hypertension) I10 [facility] [id number] [place] [address] 90618- 6016 Sep, Type 2 diabetes mellitus with other specified complication E11.69 [facility] [address] [place] [address] 09632- 9217 Sep, [facility] [id number] [address] Aug, HTN (hypertension) I10 ; Type 2 diabetes mellitus with other specified complication E11.69 ; Benign prostatic hyperplasia without lower urinary tract symptoms N40.0 and Other iron deficiency anemia D50.8 [facility] [address] [id number] Aug, [facility] [address] [id number] Aug, [facility] [id number] [place] [address] [id number] Jul, Dental examination Z01.20 [place] [address] [address]13- 5964 Jul, Type 2 diabetes mellitus with other specified complication E11.69 [place] [id number] [place] [address] 03573- 0785 May, [place] [id number] [place] [address] 23555- 4154 Apr, Type 2 diabetes mellitus with other specified complication E11.69 ; Proteinuria R80.9 ; HTN (hypertension) I10 ; Erectile dysfunction N52.9 ; Chronic obstructive pulmonary disease, unspecified COPD type J44.9 ; Chronic hepatitis C without hepatic coma B18.2 ; 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 ; Iron deficiency anemia due to chronic blood loss D50.0 and Hypercholesteremia E78.0 [place] [address] [place] [address] 15640- 0593 Mar, Diabetes mellitus E11.9 ; Hypercholesteremia E78.0 and Type 2 diabetes mellitus with other specified complication E11.69 [place] [id number] [place] [address] 14701- 3966 Mar, [place] [id number] [place] [address] 93891- 4095 Mar, Iron deficiency anemia due to chronic blood loss D50.[address] [address] 8141 Mar, Type 2 diabetes mellitus with other specified complication E11.69 and Iron deficiency anemia due to chronic blood loss D50.0 [place] [address] [address] 9084 Mar, Iron deficiency anemia due to chronic blood loss D50.0 [place] [id number] [place] [address] 12398- 0230 February, [place] [id number] [place] [address] 76895- 3323 February, Iron deficiency anemia due to chronic blood loss D50.0 [place] [address] [place] [address] 08557- 8281 February, [place] [id number] [place] [address] 16815- 8514 February, Anemia D64.9 [place] [address] [place] [address] 98063- 0556 February, Anemia D64.9 and 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 [place] [address] [address] 6[address] Jan, Chest discomfort R07.89 ; Type 2 diabetes mellitus with other specified complication E11.69 ; HTN (hypertension) I10 ; Mixed hyperlipidemia E78.2 ; Dyspnea on exertion R06.09 and Tobacco use Z72.0 [place] [address] [address] 9773 Dec, [place] [id number] [place] [address] 89471- 5126 Dec, [place] [address] [address] 34[address] Dec, Diabetes mellitus E11.9 ; HTN (hypertension) I10 ; Hypercholesteremia E78.0 ; Alcohol abuse F10.10 ; Proteinuria R80.9 ; Essential hypertension I10 ; Chronic hepatitis C with hepatic coma B18.2 ; Benign nodular prostatic hyperplasia with lower urinary tract symptoms N40.1 and Anemia D64.9 [place] [address] 65614- 4475 Jul, Epididymitis N45.1 and Testicle swelling N50.89 [place] [address] 62156- 2727 Jul, Type 2 diabetes mellitus with other specified complication E11.69 ; Hypercholesteremia E78.0 ; Environmental allergies Z91.09 ; Erectile dysfunction N52.9 ; Alcohol abuse F10.10 ; Drug abuse and dependence F19.20 ; Epididymitis N45.1 ; Essential hypertension I10 and Chronic obstructive pulmonary disease, unspecified COPD type J44.9 [place] [address] 84988- 3014 Jul, [place] [address] 73709- 7261 Jul, Epididymitis, left N45.1 [place] [address] 689766- 4799 February, Diabetes mellitus E11.9 [place] [address] [place] [id number]- 3915 Jan, Dental examination Z01.20 and Dental caries K02.9 [place] [address] 91550- 2971 Jan, Type 2 diabetes mellitus with other specified complication E11.69 ; HTN (hypertension) I10 ; Hypercholesteremia E78.0 ; Alcohol abuse F10.10 ; Proteinuria R80.9 and Dental caries, unspecified K02.9 [place] [address] [place] [id number]- 6477 Dec, [place] [address] 40850- 7357 Dec, Sebaceous cyst L72.3 ; HTN (hypertension) I10 ; Hypercholesteremia E78.0 ; Proteinuria R80.9 and Anemia D64.9 [facility] [id number] [place] [address] 32312- 4463 Dec, Anemia D64.9 [facility] [id number] [place] [address] 06734- 4049 Dec, Physical exam, pre-employment Z02.1 ; Drug abuse and dependence F19.20 ; UTI (urinary tract infection) N39.0 ; Proteinuria R80.9 ; Cellulitis L03.90 and Type 2 diabetes mellitus with other specified complication E11.69 [place] [address] 47877- 9753 29 Nov, 2015 Type 2 diabetes mellitus with other specified complication E11.69 ; Hepatitis C 070.70 ; Proteinuria R80.9 ; Diabetes mellitus E11.9 ; HTN (hypertension) I10 ; Hypercholesteremia E78.0 ; Environmental allergies Z91.09 ; Erectile dysfunction N52.9 and Alcohol abuse F10.10 [facility] [id number] [place] [address] 06057- 1082 Oct, [facility] [address] [id number] Sep, 2015 Encounter for dental examination Z01.20 ; Dental examination Z01.20 and Dental caries K02.9 [place] [id number] [place] [address] 59744- 9455 Aug, Tooth infection K04.7 [facility] [id number] [place] [address] 10850- 7500 Aug, [facility] [address] 81747- 1255 30 Jul, 2015 [facility] [id number] [place] [address] 26350- 8685 Jun, Shoulder pain 719.41 [place] [address] 91782- 0336 Jun, Hepatitis C 070.70 [facility] [id number] [place] [address] 884670- 9332 Jun, Essential hypertension, benign 401.1 ; Psychosexual dysfunction with inhibited sexual excitement 302.72 ; Proteinuria 791.0 ; Unspecified viral hepatitis C without hepatic coma 070.70 ; Diabetes mellitus without mention of complication, type II or unspecified type, uncontrolled 250.02 ; Joint pain 719.40 ; Hepatitis C 070.70 and Hypercholesterolemia 272.0 [facility] [id number] [place] [address] 279236- 6236 Jun, [facility] [id number] [place] [address] 653618- 9268 Apr, [facility] [id number] [place] [address] 86319- 8782 Apr, [facility] [id number] [place] [address] 44717- 7914 Mar, [facility] [id number] [place] [address] 89508- 3649 Jan, [facility] [id number] [place] [address] [id number]- 1651 Jan, [facility] [id number] [place] [address] 29835- 5301 Dec, [facility] [id number] [place] [address] 63222- 8029 Dec, [facility] [id number] [place] [address] 001368- 4949 Dec, [facility] [id number] [place] [address] 018004- 1798 Dec, [facility] [address] [place] [address] 144518- 6870 Jun, [facility] [id number] [place] [address] [id number]- 9509 Jun, [facility] [place] [facility] [address] [id number] [place] [address]- 8499 Jun, [facility] [place] [facility] [address] [id number] [place] [address]- 2376 Jun, [facility] [place] [facility] [address] [id number] [place] [address]- 2925 February, [facility] [place] [facility] [address] [id number] [place] [address]- 4101 February, [facility] [place] [facility] [address] [id number] [place] [address]- 0207 February, [facility] [place] [facility] [address] [id number] [place] [address]- 7670 February, [facility] [place] [facility] [address] [id number] [place] [address]- 5299 February, [facility] [place] [facility] [address] [id number] [place] [address]- 5719 Dec, [facility] [place] [facility] [address] [id number] [place] [address]- 2571 Dec, [facility] [place] [facility] [address] [id number] [place] [address]- 9397 Oct, [facility] [place] [facility] [address] [id number] [place] [address]- 2958 Oct, [facility] [place] [facility] [address] [id number] [place] [address]- 0673 Sep, [facility] [place] [facility] [address] [id number] [place] [address]- 2546 Sep, [facility] [place] [facility] [address] [id number] [place] [address]- 9526 Jul, [facility] [place] [facility] [address] [id number] [place] [address]- 2546 Jul, [facility] [place] [facility] [address] [id number] [place] [address]- 5161 15 Jul, 2013 [facility] [address] [id number] [place] [address]- 2005 15 Jul, 2013 [facility] [address] [id number] [place] [address]- 2380 24 Jun, 2013 [facility] [address] [id number] [place] [address]- 4029 Jun, [facility] [address] [id number] [place] [address]- 6812 Apr, [facility] [address] [id number] [place] 3[address] Apr, [facility] [address] [id number] [place] [address]- 2074 Mar, [facility] [address] [id number] [place] [address]- 5961 February, [facility] [address] [id number] [place] [address]- 0246 February, [facility] [address] [id number] [place] [address]- 8081 February, [facility] [address] [id number] [place] [address]- 3594 February, [facility] [address] [id number] [place] [address]- 6587 February, [facility] [address] [id number] [place] [address]- 4885 February, [facility] [address] [id number] [place] [address]- 8718 February, [facility] [address] [id number] [place] [address]- 5686 February, [facility] [address] [id number] [place] [address]- 4561 Dec, [facility] [address] [id number] [place] [address]- 9377 Nov, 2012 [facility] [place] [facility] [address] [id number] [place] [address]- 1816 Nov, [facility] [place] [facility] [address] [id number] [place] [address]- 2870 Nov, [facility] [place] [facility] [address] [id number] [place] [address]- 4560 Oct, [facility] [place] [facility] [address] [id number] [place] [address]- 2457 Sep, [facility] [place] [facility] [address] [id number] [place] [address]- 9869 Sep, [facility] [place] [facility] [address] [id number] [place] [address]- 2459 Sep, [facility] [place] [facility] [address] [id number] [place] [address]- 2916 Sep, [facility] [place] [facility] [address] [id number] [place] [address]- 5149 Sep, [facility] [place] [facility] [address] [id number] [place] [address]- 7674 Sep, [facility] [place] [facility] [address] [id number] [place] [address]- 2860 Sep, [facility] [place] [facility] [address] [id number] [place] [address]- 9526 Sep, [facility] [place] [facility] [address] [id number] [place] [address]- 6979 Sep, [facility] [place] [facility] [address] [id number] [place] [address]- 5186 Sep, [facility] [place] [facility] [address] [id number] [place] [address]- 6237 Sep, [facility] [place] [facility] [address] [id number] [place] [address]- 2546 Sep, [facility] [address] [facility] [id number] [place] [address]- 2546 Aug, IMMUNIZATIONS No Known Immunizations SOCIAL HISTORY Never Assessed REASON FOR VISIT referral PLAN OF CARE VITAL SIGNS MEDICATIONS Unknown [...] Iron Def. Anemia, Chest pain, DM type 2-[facility] 2616 Hospitalization History Chest pain, illicit drug use-[facility] 03/21/2018
--- OUTSIDE RECORDS SUMMARY | 2019-02-11 12:57 | XMS REPORT ---
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 Name Role Phone LALO LOPEZ Unavailable PROBLEMS Type Condition ICD9-CM Code RVT28-LV Code Onset Dates Condition Status SNOMED Code Problem Iron deficiency anemia due to chronic blood loss D50.0 Active 24835942 Problem Pure hypercholesterolemia, unspecified E78.00 Active 354824776 Problem Hypercholesteremia E78.0 Active 587972136 Problem Other male erectile dysfunction N52.8 Active 094608536 Problem Proteinuria R80.9 Active 02151224 Problem Chronic fatigue R53.82 Active 49117113 Problem Environmental allergies Z91.09 Active 715274240 Problem Alcohol abuse F10.10 Active 56094182 Problem Benign prostatic hyperplasia without lower urinary tract symptoms N40.0 Active 379119335 Problem Chronic hepatitis C without hepatic coma B18.2 Active 498914695 Problem Sexual dysfunction R37 Active 12796461 Problem Other iron deficiency anemia D50.8 Active 51889399 Problem Erectile dysfunction N52.9 Active 271307261 Problem Drug abuse and dependence F19.20 Active 5609561 Problem HTN (hypertension) I10 Active 31190157 Problem Type 2 diabetes mellitus with other specified complication E11.69 Active [id number] Problem Chronic obstructive pulmonary disease, unspecified COPD type J44.9 Active 87100754 Problem Epididymitis N45.1 Active 78180765 Problem Dental caries, unspecified K02.9 Active 37708457 Problem Mixed hyperlipidemia E78.2 Active 249274590 Problem Anemia D64.9 Active 304587099 Problem Essential hypertension I10 Active 76410497 Problem 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 Active [id number] ALLERGIES No Information ENCOUNTERS Encounter Location Date Diagnosis [facility] [address] [facility] [id number] [address] Apr, Essential hypertension I10 [facility] [address] [address] 18 Mar, 2018 Essential hypertension I10 [facility] [id number] [place] [address] 26801- 6174 Mar, [facility] [id number] [place] [address] 93299- 4484 Jan, Sebaceous cyst L72.3 [facility] [address] [place] [id number] [place] [address] 81575- 0396 Jan, [facility] [id number] [place] [address] 39658- 3040 Jan, [facility] [id number] [place] [address] 99235- 6044 Jan, Type 2 diabetes mellitus with other [...] anemia due to chronic blood loss D50.0 [facility] [id number] [place] [address] 40876- 7357 Nov, Dental caries K02.9 [facility] [id number] [id number] Nov, Dental caries K02.9 [facility] [id number] [place] [address] 87559- 1738 Oct, HTN (hypertension) I10 [facility] [id number] [place] [address] 35229- 6501 Sep, Type 2 diabetes mellitus with other specified complication E11.69 [facility] [id number] [place] [address] 05823- 6372 Sep, [facility] [id number] [address] Aug, HTN (hypertension) I10 ; Type 2 diabetes mellitus with other specified complication E11.69 ; Benign prostatic hyperplasia without lower urinary tract symptoms N40.0 and Other iron deficiency anemia D50.8 [facility] [address] [id number] Aug, [facility] [address] [id number] Aug, [facility] [id number] [place] [id number] Jul, Dental examination Z01.20 [place] [address] [address]- [address]39 Jul, Type 2 diabetes mellitus with other specified complication E11.69 [place] [id number] [place] [address] 10679- 9117 May, [place] [address] [id number] [place] [address] 55527- 8194 Apr, Type 2 diabetes mellitus with other specified complication E11.69 ; Proteinuria R80.9 ; HTN (hypertension) I10 ; Erectile dysfunction N52.9 ; Chronic obstructive pulmonary disease, unspecified COPD type J44.9 ; Chronic hepatitis C without hepatic coma B18.2 ; 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 ; Iron deficiency anemia due to chronic blood loss D50.0 and Hypercholesteremia E78.0 [place] [id number] [place] [address] 79277- 9607 Mar, Diabetes mellitus E11.9 ; Hypercholesteremia E78.0 and Type 2 diabetes mellitus with other specified complication E11.69 [place] [address] [id number] [place] [address] 25213- 3852 Mar, [place] [address] [id number] [place] [address] 67554- 4769 Mar, Iron deficiency anemia due to chronic blood loss D50.[address] [address] 0164 Mar, Type 2 diabetes mellitus with other specified complication E11.69 and Iron deficiency anemia due to chronic blood loss D50.0 [place] [address] [address] 6936 Mar, Iron deficiency anemia due to chronic blood loss D50.0 [place] [id number] [place] [address] 72887- 6753 February, [place] [id number] [place] [address] 71028- 3842 February, Iron deficiency anemia due to chronic blood loss D50.0 [place] [id number] [place] [address] 69327- 7146 February, [place] [address] [id number] [place] [address] 54312- 1561 February, Anemia D64.9 [place] [id number] [place] [address] 91397- 9576 February, Anemia D64.9 and 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 [place] [address] [address] 3678 Jan, Chest discomfort R07.89 ; Type 2 diabetes mellitus with other specified complication E11.69 ; HTN (hypertension) I10 ; Mixed hyperlipidemia E78.2 ; Dyspnea on exertion R06.09 and Tobacco use Z72.0 [place] [address] [address] 77[address] Dec, [place] [address] [id number] [place] [address] 92319- 6876 Dec, [place] [address] [address] 1335 Dec, Diabetes mellitus E11.9 ; HTN (hypertension) I10 ; Hypercholesteremia E78.0 ; Alcohol abuse F10.10 ; Proteinuria R80.9 ; Essential hypertension I10 ; Chronic hepatitis C with hepatic coma B18.2 ; Benign nodular prostatic hyperplasia with lower urinary tract symptoms N40.1 and Anemia D64.9 [place] [address] [address]608- 1568 Jul, Epididymitis N45.1 and Testicle swelling N50.89 [place] [address] 53349- 3068 Jul, Type 2 diabetes mellitus with other specified complication E11.69 ; Hypercholesteremia E78.0 ; Environmental allergies Z91.09 ; Erectile dysfunction N52.9 ; Alcohol abuse F10.10 ; Drug abuse and dependence F19.20 ; Epididymitis N45.1 ; Essential hypertension I10 and Chronic obstructive pulmonary disease, unspecified COPD type J44.9 [place] [address] 68926- 1728 Jul, [place] [address] 74658- 5648 Jul, Epididymitis, left N45.1 [place] [address] 889307- 7649 February, Diabetes mellitus E11.9 [place] [address] [place] [id number]- [address]36 Jan, Dental examination Z01.20 and Dental caries K02.9 [place] [address] 02400- 0659 Jan, Type 2 diabetes mellitus with other specified complication E11.69 ; HTN (hypertension) I10 ; Hypercholesteremia E78.0 ; Alcohol abuse F10.10 ; Proteinuria R80.9 and Dental caries, unspecified K02.9 [place] [address] [place] [id number]- 8733 Dec, [place] [address] 32297- 8600 Dec, Sebaceous cyst L72.3 ; HTN (hypertension) I10 ; Hypercholesteremia E78.0 ; Proteinuria R80.9 and Anemia D64.9 [facility] [id number] [place] [address] 42458- 9700 Dec, Anemia D64.9 [facility] [id number] [place] [address] 47187- 9227 Dec, Physical exam, pre-employment Z02.1 ; Drug abuse and dependence F19.20 ; UTI (urinary tract infection) N39.0 ; Proteinuria R80.9 ; Cellulitis L03.90 and Type 2 diabetes mellitus with other specified complication E11.69 [place] [address] 96614- 7297 29 Nov, 2015 Type 2 diabetes mellitus with other specified complication E11.69 ; Hepatitis C 070.70 ; Proteinuria R80.9 ; Diabetes mellitus E11.9 ; HTN (hypertension) I10 ; Hypercholesteremia E78.0 ; Environmental allergies Z91.09 ; Erectile dysfunction N52.9 and Alcohol abuse F10.10 [facility] [id number] [place] [address] 79829- 6171 Oct, [facility] [address] [id number] Sep, 2015 Encounter for dental examination Z01.20 ; Dental examination Z01.20 and Dental caries K02.9 [place] [address] [address] [id number] [place] [address] 87898- 5140 Aug, Tooth infection K04.7 [facility] [address] [id number] [place] [address] 65592- 4563 Aug, [facility] [address] 67285- 9270 30 Jul, 2015 [facility] [address] [id number] [place] [address] 41419- 0522 Jun, Shoulder pain 719.41 [place] [address] 14600- 5006 Jun, Hepatitis C 070.70 [facility] [id number] [place] [address] 182345- 1842 Jun, Essential hypertension, benign 401.1 ; Psychosexual dysfunction with inhibited sexual excitement 302.72 ; Proteinuria 791.0 ; Unspecified viral hepatitis C without hepatic coma 070.70 ; Diabetes mellitus without mention of complication, type II or unspecified type, uncontrolled 250.02 ; Joint pain 719.40 ; Hepatitis C 070.70 and Hypercholesterolemia 272.0 [facility] [id number] [place] [address] 691960- 0240 Jun, [facility] [id number] [place] [address] 530698- 0269 Apr, [facility] [id number] [place] [address] 04686- 1939 Apr, [facility] [id number] [place] [address] 88833- 2285 Mar, [facility] [id number] [place] [address] 89225- 1131 Jan, [facility] [id number] [place] [address] [id number]- 5591 Jan, [facility] [id number] [place] [address] 89817- 8745 Dec, [facility] [id number] [place] [address] 91615- 9272 Dec, [facility] [id number] [place] [address] 556563- 6917 Dec, [facility] [id number] [place] [address] 121706- 7826 Dec, [facility] [id number] [place] [address] 024893- 8599 Jun, [facility] [address] [id number] [place] [address] [id number]- 6543 Jun, [facility] [place] [facility] [address] [id number] [place] [address]- 8500 Jun, [facility] [place] [facility] [address] [id number] [place] [address]- 0296 Jun, [facility] [place] [facility] [address] [id number] [place] [address]- 1462 February, [facility] [place] [facility] [address] [id number] [place] [address]- 8926 February, [facility] [place] [facility] [address] [id number] [place] [address]- 3627 February, [facility] [place] [facility] [address] [id number] [place] [address]- 0447 February, [facility] [place] [facility] [address] [id number] [place] [address]- 1693 February, [facility] [place] [facility] [address] [id number] [place] [address]- 0515 Dec, [facility] [place] [facility] [address] [id number] [place] [address]- 2244 Dec, [facility] [place] [facility] [address] [id number] [place] [address]- 5077 Oct, [facility] [place] [facility] [address] [id number] [place] [address]- 8987 Oct, [facility] [place] [facility] [address] [id number] [place] [address]- 7395 Sep, [facility] [place] [facility] [address] [id number] [place] [address]- 2546 Sep, [facility] [place] [facility] [address] [id number] [place] [address]- 5516 Jul, [facility] [place] [facility] [address] [id number] [place] [address]- 2546 Jul, [facility] [place] [facility] [address] [id number] [place] [address]- 3603 15 Jul, 2013 [facility] [address] [id number] [place] [address]- 7381 15 Jul, 2013 [facility] [address] [id number] [place] [address]- 0231 24 Jun, 2013 [facility] [address] [id number] [place] [address]- 0661 Jun, [facility] [address] [id number] [place] [address]- 5822 Apr, [facility] [address] [id number] [place] 2485 Apr, [facility] [address] [id number] [place] [address]- 9588 Mar, [facility] [address] [id number] [place] [address]- 9547 February, [facility] [address] [id number] [place] [address]- 8252 February, [facility] [address] [id number] [place] [address]- 0222 February, [facility] [address] [id number] [place] [address]- 4815 February, [facility] [address] [id number] [place] [address]- 8643 February, [facility] [address] [id number] [place] [address]- 3451 February, [facility] [address] [id number] [place] [address]- 4382 February, [facility] [address] [id number] [place] [address]- 8216 February, [facility] [address] [id number] [place] [address]- 1557 Dec, [facility] [address] [id number] [place] [address]- 3707 Nov, 2012 [facility] [place] [facility] [address] [id number] [place] [address]- 5006 Nov, [facility] [place] [facility] [address] [id number] [place] [address]- 3873 Nov, [facility] [place] [facility] [address] [id number] [place] [address]- 3041 Oct, [facility] [place] [facility] [address] [id number] [place] [address]- 5934 Sep, [facility] [place] [facility] [address] [id number] [place] [address]- 3066 Sep, [facility] [place] [facility] [address] [id number] [place] [address]- 6089 Sep, [facility] [place] [facility] [address] [id number] [place] [address]- 8284 Sep, [facility] [place] [facility] [address] [id number] [place] [address]- 8262 Sep, [facility] [place] [facility] [address] [id number] [place] [address]- 3046 Sep, [facility] [place] [facility] [address] [id number] [place] [address]- 1098 Sep, [facility] [place] [facility] [address] [id number] [address]- 6712 Sep, [facility] [place] [facility] [address] [id number] [place] [address]- 4513 Sep, [facility] [place] [facility] [address] [id number] [place] [address]- 3846 Sep, [facility] [place] [facility] [address] [id number] [place] [address]- 3728 Sep, [facility] [place] [facility] [address] [id number] [address]- 2546 Sep, [facility] [address] [facility] [id number] [place] [address]- 2096 Aug, IMMUNIZATIONS No Known Immunizations SOCIAL HISTORY Never Assessed REASON FOR VISIT Critical labs levels PLAN OF CARE VITAL SIGNS MEDICATIONS Unknown [...] Iron Def. Anemia, Chest pain, DM type 2-[facility] 2616 Hospitalization History Chest pain, illicit drug use-[facility] 03/21/2018
--- OUTSIDE RECORDS SUMMARY | 2019-02-11 12:57 | XMS REPORT ---
Author Author LALO LOPEZ Organization [facility] Address [address] [place] [address] Care Team Providers Care Provider Relations Coordinator Name Role Phone LALO LOPEZ Unavailable PROBLEMS Type Condition ICD9-CM Code DWR08-JZ Code Onset Dates Condition Status SNOMED Code Problem Iron deficiency anemia due to chronic blood loss D50.0 Active 92217072 Problem Pure hypercholesterolemia, unspecified E78.00 Active 731810666 Problem Hypercholesteremia E78.0 Active 446426861 Problem Other male erectile dysfunction N52.8 Active 877597601 Problem Proteinuria R80.9 Active 72784116 Problem Chronic fatigue R53.82 Active 60497984 Problem Environmental allergies Z91.09 Active 084507942 Problem Alcohol abuse F10.10 Active 29913661 Problem Benign prostatic hyperplasia without lower urinary tract symptoms N40.0 Active 472302989 Problem Chronic hepatitis C without hepatic coma B18.2 Active 393251344 Problem Sexual dysfunction R37 Active 52569278 Problem Other iron deficiency anemia D50.8 Active 09613101 Problem Erectile dysfunction N52.9 Active 967735613 Problem Drug abuse and dependence F19.20 Active 0952090 Problem HTN (hypertension) I10 Active 42443764 Problem Type 2 diabetes mellitus with other specified complication E11.69 Active 824197720408305 Problem Chronic obstructive pulmonary disease, unspecified COPD type J44.9 Active 54795451 Problem Epididymitis N45.1 Active 22259617 Problem Dental caries, unspecified K02.9 Active 79618516 Problem Mixed hyperlipidemia E78.2 Active 053110410 Problem Anemia D64.9 Active 310243154 Problem Essential hypertension I10 Active 79229555 Problem 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 Active [id number] ALLERGIES Substance Reaction Event Type Date Status Topamax nausea Drug Allergy Jan, Active ENCOUNTERS Encounter Location Date Diagnosis [facility] [address] [facility] [id number] [address] Apr, Essential hypertension I10 [facility] [address] [address] Mar, Essential hypertension I10 [facility] [id number] [place] [address] 60205- 6689 Mar, [facility] [id number] [place] [address] 92541- 0092 Jan, Sebaceous cyst L72.3 [facility] [id number] [place] [address] 73178- 2535 Jan, [facility] [id number] [place] [address] 03103- 8672 Jan, [facility] [address] [place] [address] 16678- 0472 Jan, Type 2 diabetes mellitus with other [...] anemia due to chronic blood loss D50.0 [facility] [address] [place] [address] 51604- 8332 Nov, Dental caries K02.9 [facility] [address] [place] [address] [id number] Nov, Dental caries K02.9 [facility] [address] [place] [address] 75377- 4022 Oct, HTN (hypertension) I10 [facility] [address] [place] [address] 21457- 7574 Sep, Type 2 diabetes mellitus with other specified complication E11.69 [facility] [id number] [place] [address] 54984- 8907 Sep, [facility] [address] [address] Aug, HTN (hypertension) I10 ; Type 2 diabetes mellitus with other specified complication E11.69 ; Benign prostatic hyperplasia without lower urinary tract symptoms N40.0 and Other iron deficiency anemia D50.8 [facility] [id number] [id number] Aug, [facility] [address] [id number] Aug, [facility] [id number] [place] [address] [id number] Jul, Dental examination Z01.20 [place] [id number] [place] [address] 99027- 2861 Jul, Type 2 diabetes mellitus with other specified complication E11.69 [place] [facility] [id number] [place] [address] 58020- 4897 May, [place] [facility] [id number] [place] [address] 95855- 5232 Apr, Type 2 diabetes mellitus with other specified complication E11.69 ; Proteinuria R80.9 ; HTN (hypertension) I10 ; Erectile dysfunction N52.9 ; Chronic obstructive pulmonary disease, unspecified COPD type J44.9 ; Chronic hepatitis C without hepatic coma B18.2 ; 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 ; Iron deficiency anemia due to chronic blood loss D50.0 and Hypercholesteremia E78.0 [place] [id number] [address] Mar, Diabetes mellitus E11.9 ; Hypercholesteremia E78.0 and Type 2 diabetes mellitus with other specified complication E11.69 [place] [address] [address] 3[address] Mar, [place] [id number] [place] [address] 23199- 2449 Mar, Iron deficiency anemia due to chronic blood loss D50.0 [facility] [address] [address] 1467 Mar, Type 2 diabetes mellitus with other specified complication E11.69 and Iron deficiency anemia due to chronic blood loss D50.0 [place] [address] [address] 48[address] Mar, Iron deficiency anemia due to chronic blood loss D50.0 [place] [id number] [place] [address] 18366- 2690 February, [place] [id number] [place] [address] 96386- 0044 February, Iron deficiency anemia due to chronic blood loss D50.0 [place] [address] [place] [address] 93579- 1170 February, [place] [facility] [id number] [place] [address] 44371- 6907 February, Anemia D64.9 [facility] [facility] [id number] [place] [address] 90478- 6035 February, Anemia D64.9 and 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 [place] [address] [address] Jan, Chest discomfort R07.89 ; Type 2 diabetes mellitus with other specified complication E11.69 ; HTN (hypertension) I10 ; Mixed hyperlipidemia E78.2 ; Dyspnea on exertion R06.09 and Tobacco use Z72.0 [place] [address] [address] 2579 Dec, [place] [id number] [place] [address] 31549- 6734 Dec, [place] [address] [address] 7186 Dec, Diabetes mellitus E11.9 ; HTN (hypertension) I10 ; Hypercholesteremia E78.0 ; Alcohol abuse F10.10 ; Proteinuria R80.9 ; Essential hypertension I10 ; Chronic hepatitis C with hepatic coma B18.2 ; Benign nodular prostatic hyperplasia with lower urinary tract symptoms N40.1 and Anemia D64.9 [place] [address] [address]226- 5633 24 Jul, 2016 Epididymitis N45.1 and Testicle swelling N50.89 [place] [address] 60772- 9008 Jul, Type 2 diabetes mellitus with other specified complication E11.69 ; Hypercholesteremia E78.0 ; Environmental allergies Z91.09 ; Erectile dysfunction N52.9 ; Alcohol abuse F10.10 ; Drug abuse and dependence F19.20 ; Epididymitis N45.1 ; Essential hypertension I10 and Chronic obstructive pulmonary disease, unspecified COPD type J44.9 [place] [address] [address]676- 8053 Jul, [place] [address] 19815- 3263 Jul, Epididymitis, left N45.1 [place] [address] 12554- 7395 February, Diabetes mellitus E11.9 [place] [address] 97651- 9940 Jan, Dental examination Z01.20 and Dental caries K02.9 [place] [address] 68930- 2809 Jan, Type 2 diabetes mellitus with other specified complication E11.69 ; HTN (hypertension) I10 ; Hypercholesteremia E78.0 ; Alcohol abuse F10.10 ; Proteinuria R80.9 and Dental caries, unspecified K02.9 [place] [address] 44798- 7822 Dec, [place] [address] 25851- 8226 Dec, Sebaceous cyst L72.3 ; HTN (hypertension) I10 ; Hypercholesteremia E78.0 ; Proteinuria R80.9 and Anemia D64.9 [facility] [id number] [place] [address] 65326- 9761 Dec, Anemia D64.9 [facility] [id number] [place] [address] 56381- 9865 Dec, Physical exam, pre-employment Z02.1 ; Drug abuse and dependence F19.20 ; UTI (urinary tract infection) N39.0 ; Proteinuria R80.9 ; Cellulitis L03.90 and Type 2 diabetes mellitus with other specified complication E11.69 [place] [address] 76764- 4731 29 Nov, 2015 Type 2 diabetes mellitus with other specified complication E11.69 ; Hepatitis C 070.70 ; Proteinuria R80.9 ; Diabetes mellitus E11.9 ; HTN (hypertension) I10 ; Hypercholesteremia E78.0 ; Environmental allergies Z91.09 ; Erectile dysfunction N52.9 and Alcohol abuse F10.10 [facility] [address] 17340- 8180 Oct, [facility] [address] [id number] Sep, Encounter for dental examination Z01.20 ; Dental examination Z01.20 and Dental caries K02.9 [facility] [id number] [place] [address] 17413- 1660 Aug, Tooth infection K04.7 [facility] [address] 38257- 4478 Aug, [place] [address] 22576- 7036 30 Jul, 2015 [facility] [address] 04968- 1363 Jun, Shoulder pain 719.41 [place] [id number] [address]- 9857 Jun, Hepatitis C 070.70 [facility] [id number] [place] [address] 58884- 1628 Jun, Essential hypertension, benign 401.1 ; Psychosexual dysfunction with inhibited sexual excitement 302.72 ; Proteinuria 791.0 ; Unspecified viral hepatitis C without hepatic coma 070.70 ; Diabetes mellitus without mention of complication, type II or unspecified type, uncontrolled 250.02 ; Joint pain 719.40 ; Hepatitis C 070.70 and Hypercholesterolemia 272.0 [facility] [id number] [address]- 9659 Jun, [facility] [id number] [place] [address] 86526- 1417 Apr, [facility] [id number] [place] [address] 28149- 4217 Apr, [facility] [id number] [place] [address] 64622- 4027 Mar, [facility] [address] [place] [address] 69194- 5160 Jan, [facility] [id number] [place] [address] 74650- 3919 Jan, [facility] [address] [address]- 0670 Dec, [facility] [id number] [address]- 6836 Dec, [facility] [address] [address]- 3552 Dec, [facility] [address] [place] [address] [id number]- 0553 Dec, [facility] [address] [address] 9844 Jun, [facility] [address] [address]- 4438 Jun, [facility] [address] [id number] [place] [address]- 7664 Jun, [facility] [address] [id number] [place] [address]- 8086 Jun, [facility] [address] [id number] [place] [address]- 4889 February, [facility] [address] [id number] [place] [address]- 4413 February, [facility] [address] [id number] [place] [address]- 1948 February, [facility] [address] [id number] [place] [address]- 9684 February, [facility] [address] [id number] [place] [address]- 0258 February, [facility] [address] [id number] [place] [address]- 0022 Dec, [facility] [address] [id number] [place] [address]- 8845 Dec, [facility] [address] [id number] [place] [address]- 0882 Oct, [facility] [address] [id number] [place] [address]- 2526 Oct, [facility] [address] [id number] [place] [address]- 0614 Sep, [facility] [place] [facility] [address] [id number] [place] [address]- 2273 Sep, [facility] [place] [facility] [address] [id number] [place] [address]- 9906 Jul, [facility] [address] [id number] [place] [address]- 8100 Jul, [facility] [address] [id number] [place] [address]- 5684 Jul, [facility] [place] [facility] [address] [id number] [place] [address]- 5920 Jul, [facility] [address] [id number] [place] [address]- 9123 Jun, [facility] [place] [facility] [address] [id number] [place] [address]- 2128 Jun, [facility] [address] [id number] [place] [address]- 9261 Apr, [facility] [place] [facility] [address] [id number] [place] [address]- 0059 Apr, [facility] [address] [id number] [place] [address]- 0991 Mar, [facility] [address] [id number] [place] [address]- 2590 February, [facility] [place] [facility] [address] [id number] [place] [address]- 7627 February, [facility] [address] [id number] [place] [address]- 8276 February, [facility] [place] [facility] [address] [id number] [place] [address]- 9012 February, [facility] [place] [facility] [address] [id number] [place] [address]- 8558 February, [facility] [place] [facility] [address] [id number] [place] [address]- 8111 February, [facility] [place] [facility] [address] [id number] [place] [address]- 2666 February, [facility] [place] [facility] [address] [id number] [place] [address]- 9714 February, [facility] [place] [facility] [address] [id number] [place] [address]- 0143 05 Dec, 2012 [facility] [address] [id number] [place] [address]- 2406 Nov, 2012 [facility] [address] [id number] [place] [address]- 6836 Nov, [facility] [address] [id number] [place] [address]- 2546 Nov, [facility] [address] [id number] [place] [address]- 2186 Oct, [facility] [address] [id number] [place] [address]- 7696 Sep, [facility] [address] [id number] [place] [address]- 6606 Sep, [facility] [address] [id number] [place] [address]- 7946 Sep, [facility] [address] [id number] [place] [address]- 3542 Sep, [facility] [address] [id number] [place] [address]- 4746 Sep, [facility] [address] [facility] [id number] [place] [address]- 2483 Sep, [facility] [address] [id number] [place] [address]- 8346 05 Sep, 2012 [facility] [place] [facility] [address] [id number] [place] [address]- 2546 05 Sep, 2012 [facility] [place] [facility] [address] [id number] [place] [address]- 0786 04 Sep, 2012 [facility] [place] [facility] [address] [id number] [place] [address]- 9966 04 Sep, 2012 [facility] [address] [id number] [place] [address]- 6135 Sep, [facility] [address] [facility] [id number] [place] [address] Sep, [facility] [address] [facility] [id number] [place]99 Aug, IMMUNIZATIONS No Known Immunizations SOCIAL HISTORY Never Assessed REASON FOR VISIT DM-Mahesh EMERSON PLAN OF CARE Activity Details Follow Up 3 Months Reason:dm2 VITAL SIGNS Height 70 in 2018-01-13 Weight 252.7 lbs 2018-01-13 Temperature 97.9 degrees Fahrenheit 2018-01-13 Heart Rate 82 bpm 2018-01-13 Respiratory Rate 18 2018-01-13 BMI 36.25 kg/m2 2018-01-13 Blood pressure systolic 126 mmHg 2018-01-13 Blood pressure diastolic 78 mmHg 2018-01-13 MEDICATIONS Medication Instructions Dosage Frequency Start Date End Date Duration Status Proventil HFA 108 (90 Base) MCG/ACT Inhalation every 4 hrs 2 puffs as needed 4h Dec, Active Viagra 100 MG Orally Once a day 1 tablet as needed 24h Not-Taking Claritin 10 mg Orally Once a day 1 tablet 24h Not-Taking Actos 45 MG Orally Once a day 1 tablet 24h Active Amoxicillin 500 mg Orally 2 times a day 2 capsules 12h Jan,Jan 10 day(s) Active Levemir 100 UNIT/ML Subcutaneous daily 100 units 24h 30 days Not- Taking Insulin Syringe-Needle U-100 28G X 1/2" 1 ML as directed 24h Jan, Active Lantus 100 UNIT/ML Subcutaneous Once a day inject 100 units 24h Jan, Active Flomax 0.4 MG Orally Once a day 1 capsule 24h Active Metformin HCl 1000 MG 1 tablet with meals 12h Active Carafate 1 GM Orally 4 times a day 1 tablet 6h Active Insulin Syringe/Needle 28G X 1/2 for use with Levemir 2 times a day 1 Syringe 12h Dec, 30 days Not-Taking Diovan 40 mg Orally Once a day 1 tablet 24h 90 days Active Pravastatin Sodium 20 mg Orally Once a day 1 tablet 24h Active Ferrous Sulfate 325 (65 Fe) MG Orally 3 times a day 1 tablet 8h 30 days Active RESULTS No Results PROCEDURES Procedure Date Ordered Result Body Site COMPREHEN METABOLIC PANEL January 13, 2018 GLYCATED HEMOGLOBIN TEST January 13, 2018 ASSAY THYROID STIM HORMONE January 13, 2018 ASSAY OF TOTAL TESTOSTERONE January 13, 2018 VENIPUNCT, ROUTINE* January 13, 2018 COMPLETE CBC W/AUTO DIFF WBC January 13, 2018 INSTRUCTIONS MEDICATIONS ADMINISTERED No Known Medications MEDICAL [...] Iron Def. Anemia, Chest pain, DM type 2-[facility] 2616 Hospitalization History Chest pain, illicit drug use-[facility] 03/21/2018
--- OUTSIDE RECORDS SUMMARY | 2019-02-11 12:58 | XMS REPORT ---
Author Author DANAY MEDEROS Organization [facility] Address [address] [place] [address] Care Team Providers Care Drag Seiner Name Role Phone DANAY MEDEROS Unavailable PROBLEMS Type Condition ICD9-CM Code GCB43-UU Code Onset Dates Condition Status SNOMED Code Problem Iron deficiency anemia due to chronic blood loss D50.0 Active 63040581 Problem Pure hypercholesterolemia, unspecified E78.00 Active 127664480 Problem Hypercholesteremia E78.0 Active 901458499 Problem Other male erectile dysfunction N52.8 Active 108168044 Problem Proteinuria R80.9 Active 81774536 Problem Chronic fatigue R53.82 Active 84286128 Problem Environmental allergies Z91.09 Active 365432009 Problem Alcohol abuse F10.10 Active 91752029 Problem Benign prostatic hyperplasia without lower urinary tract symptoms N40.0 Active 837336395 Problem Chronic hepatitis C without hepatic coma B18.2 Active 686557238 Problem Sexual dysfunction R37 Active 14298224 Problem Other iron deficiency anemia D50.8 Active 74218401 Problem Erectile dysfunction N52.9 Active 688381764 Problem Drug abuse and dependence F19.20 Active 0769596 Problem HTN (hypertension) I10 Active 45393959 Problem Type 2 diabetes mellitus with other specified complication E11.69 Active 839534845085149 Problem Chronic obstructive pulmonary disease, unspecified COPD type J44.9 Active 20886632 Problem Epididymitis N45.1 Active 89437477 Problem Dental caries, unspecified K02.9 Active 13971760 Problem Mixed hyperlipidemia E78.2 Active 264660730 Problem Anemia D64.9 Active 537121435 Problem Essential hypertension I10 Active 58045333 Problem 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 Active [id number] ALLERGIES Substance Reaction Event Type Date Status Topamax nausea Drug Allergy Jul, Active ENCOUNTERS Encounter Location Date Diagnosis [facility] [address] [facility] [id number] [place] [address] 14860- 5919 Jan, Sebaceous cyst L72.3 [place] [id number] [place] [address] 17989- 7733 Jan, [facility] ([facility] [address] [place] [id number] [place] [address] 40861- 1714 Jan, [place] [address] [place] [id number] [place] [address] 64063- 3790 Jan, Type 2 diabetes mellitus with other [...] anemia due to chronic blood loss D50.0 [place] [address] [place] [id number] [place] [address] 35927- 3659 Nov, Dental caries K02.9 [facility] [address] [place] [id number] [place] [address] [id number] Nov, Dental caries K02.9 [place] [address] [place] [id number] [place] [address] 33207- 1142 Oct, HTN (hypertension) I10 [place] [id number] [place] [address] 26938- 1905 Sep, Type 2 diabetes mellitus with other specified complication E11.69 [facility] ([facility] [id number] [place] [address] 67568- 3076 Sep, [place] [address] [place] [id number] [place] [address] 51565- 2671 Aug, HTN (hypertension) I10 ; Type 2 diabetes mellitus with other specified complication E11.69 ; Benign prostatic hyperplasia without lower urinary tract symptoms N40.0 and Other iron deficiency anemia D50.8 [facility] [address] [place] [id number] [place] [address] [id number] Aug, [facility] [address] [facility] [id number] [id number] Aug, [facility] [address] [place] [id number] [id number] Jul, Dental examination Z01.20 [place] [address] [address] Jul, Type 2 diabetes mellitus with other specified complication E11.69 [place] [address] [address] [address] May, [place] [id number] [place] [address] 802260- 0195 Apr, Type 2 diabetes mellitus with other specified complication E11.69 ; Proteinuria R80.9 ; HTN (hypertension) I10 ; Erectile dysfunction N52.9 ; Chronic obstructive pulmonary disease, unspecified COPD type J44.9 ; Chronic hepatitis C without hepatic coma B18.2 ; 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 ; Iron deficiency anemia due to chronic blood loss D50.0 and Hypercholesteremia E78.0 [place] [id number] [place] [address] 97923- 8129 Mar, Diabetes mellitus E11.9 ; Hypercholesteremia E78.0 and Type 2 diabetes mellitus with other specified complication E11.69 [place] [address] [address] 5809 Mar, [place] [id number] [place] [address] 17830- 1605 Mar, Iron deficiency anemia due to chronic blood loss D50.0 [place] [id number] [place] [address] 58331- 3933 Mar, Type 2 diabetes mellitus with other specified complication E11.69 and Iron deficiency anemia due to chronic blood loss D50.0 [place] [id number] [place] [address] 66704- 8645 Mar, Iron deficiency anemia due to chronic blood loss D50.0 [place] [id number] [place] [address] 97403- 0286 February, [place] [address] [place] [id number] [place] [address] 08938- 9953 February, Iron deficiency anemia due to chronic blood loss D50.0 [place] [address] [place] [id number] [place] [address] 81570- 3854 February, [place] [address] [place] [id number] [place] [address] 90775- 5392 February, Anemia D64.[address] 80904- 3297 February, Anemia D64.9 and 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 18751- 2404 Jan, Chest discomfort R07.89 ; Type 2 diabetes mellitus with other specified complication E11.69 ; HTN (hypertension) I10 ; Mixed hyperlipidemia E78.2 ; Dyspnea on exertion R06.09 and Tobacco use Z72.0 [place] [id number] [place] [address] 62688- 1231 Dec, [place] [address] [place] [id number] [place] [address] 02112- 2924 Dec, [place] [id number] [place] [address] 29264- 7039 Dec, Diabetes mellitus E11.9 ; HTN (hypertension) I10 ; Hypercholesteremia E78.0 ; Alcohol abuse F10.10 ; Proteinuria R80.9 ; Essential hypertension I10 ; Chronic hepatitis C with hepatic coma B18.2 ; Benign nodular prostatic hyperplasia with lower urinary tract symptoms N40.1 and Anemia D64.9 [place] [id number] [place] [address] 26226- 4690 Jul, Epididymitis N45.1 and Testicle swelling N50.89 [place] [address] 27118- 8026 13 Jul, 2016 Type 2 diabetes mellitus with other specified complication E11.69 ; Hypercholesteremia E78.0 ; Environmental allergies Z91.09 ; Erectile dysfunction N52.9 ; Alcohol abuse F10.10 ; Drug abuse and dependence F19.20 ; Epididymitis N45.1 ; Essential hypertension I10 and Chronic obstructive pulmonary disease, unspecified COPD type J44.9 [place] [address] 14372- 1008 10 Jul, 2016 [place] [address] 778757- 3412 10 Jul, 2016 Epididymitis, left N45.1 [place] [address] 55524- 0332 February, Diabetes mellitus E11.9 [place] [address] 54632- 4028 27 Jan, 2016 Dental examination Z01.20 and Dental caries K02.9 [place] [address] 55170- 3133 07 Jan, 2016 Type 2 diabetes mellitus with other specified complication E11.69 ; HTN (hypertension) I10 ; Hypercholesteremia E78.0 ; Alcohol abuse F10.10 ; Proteinuria R80.9 and Dental caries, unspecified K02.9 [place] [address] 11382- 2369 Dec, [place] [address] 02231- 1107 Dec, Sebaceous cyst L72.3 ; HTN (hypertension) I10 ; Hypercholesteremia E78.0 ; Proteinuria R80.9 and Anemia D64.9 [place] [address] 77641- 6345 Dec, Anemia D64.9 [place] [address] [place] [id number]- 2546 Dec, Physical exam, pre-employment Z02.1 ; Drug abuse and dependence F19.20 ; UTI (urinary tract infection) N39.0 ; Proteinuria R80.9 ; Cellulitis L03.90 and Type 2 diabetes mellitus with other specified complication E11.69 [facility] ([facility] [address] [place] [id number] [place] [address] 60039- 5000 29 Nov, 2015 Type 2 diabetes mellitus with other specified complication E11.69 ; Hepatitis C 070.70 ; Proteinuria R80.9 ; Diabetes mellitus E11.9 ; HTN (hypertension) I10 ; Hypercholesteremia E78.0 ; Environmental allergies Z91.09 ; Erectile dysfunction N52.9 and Alcohol abuse F10.10 [place] [address] 48465- 0238 Oct, [facility] [address] [id number] Sep, Encounter for dental examination Z01.20 ; Dental examination Z01.20 and Dental caries K02.9 [place] [address] 19531- 0121 Aug, Tooth infection K04.7 [place] [address] [place] [id number] [place] [address] 21997- 3950 Aug, [place] [address] [place] [id number] [place] [address] 86409- 7280 Jul, [place] [address] 98763- 2980 Jun, Shoulder pain 719.41 [place] [address] [place] [id number] [place] [address] 07092- 6756 Jun, Hepatitis C 070.70 [facility] ([facility] [address] 65249- 4269 Jun, Essential hypertension, benign 401.1 ; Psychosexual dysfunction with inhibited sexual excitement 302.72 ; Proteinuria 791.0 ; Unspecified viral hepatitis C without hepatic coma 070.70 ; Diabetes mellitus without mention of complication, type II or unspecified type, uncontrolled 250.02 ; Joint pain 719.40 ; Hepatitis C 070.70 and Hypercholesterolemia 272.0 [facility] ([facility] [address] [id number] [address] 8843 Jun, [facility] [address] [place] [id number] [place] [address] 60077- 8459 Apr, [facility] [address] [place] [id number] [place] [address] 59905- 6486 Apr, [facility] [address] [place] [id number] [place] [address] 09105- 5248 Mar, [facility] [address] [place] [id number] [place] [address] 61815- 0320 Jan, [facility] [address] [place] [id number] [place] [address] 26497- 1077 Jan, [facility] [address] [place] [id number] [place] [address] 83364- 2558 Dec, [facility] [address] [place] [id number] [place] [address] 62627- 7249 Dec, [facility] [address] [place] [id number] [place] [address] 38164- 7345 Dec, [facility] [address] [address]- 3688 Dec, [facility] [address] [address]- 6856 Jun, [facility] [address] [address]- 3305 Jun, [facility] [address] [place] [id number] [place] [address] 88298- 6712 Jun, [facility] ([facility] [address] [address]- 0855 Jun, [facility] [address] [place] [id number] [place] [address]- 6143 February, [facility] [place] [facility] [address] [id number] [place] [address]- 4937 February, [facility] [place] [facility] [address] [id number] [place] [address]- 0656 February, [facility] [place] [facility] [address] [id number] [place] [address]- 5586 February, [facility] [place] [facility] [address] [id number] [place] [address]- 9079 February, [facility] [place] [facility] [address] [id number] [place] [address]- 2324 Dec, [facility] [place] [facility] [address] [id number] [place] [address]- 5124 Dec, [facility] [place] [facility] [address] [id number] [place] [address]- 6691 Oct, [facility] [place] [facility] [address] [id number] [place] [address]- 9589 Oct, [facility] [place] [facility] [address] [id number] [place] [address]- 0632 Sep, [facility] [place] [facility] [address] [facility] [id number] [place] [address]- 5422 Sep, [facility] [place] [facility] [address] [id number] [place] [address]- 9835 Jul, [facility] [place] [facility] [address] [id number] [place] [address] 2544 Jul, [facility] [place] [facility] [address] [id number] [place] [address]- 8596 Jul, [facility] [place] [facility] [address] [id number] [place] [address]- 5596 Jul, [facility] [place] [facility] [address] [id number] [place] [address]- 7272 Jun, [facility] [place] [facility] [address] [id number] [place] [address]- 3137 Jun, [facility] [address] [id number] [place] [address]- 9470 Apr, [facility] [address] [id number] [place] [address]- 5070 Apr, [facility] [address] [id number] [place] [address]- 3030 Mar, [facility] [address] [id number] [place] [address]- 5850 February, [facility] [address] [id number] [place] [address]- 2878 February, [facility] [address] [id number] [place] [address]- 2617 February, [facility] [address] [id number] [place] [address]- 5243 February, [facility] [address] [id number] [place] [address]- 0261 February, [facility] [address] [id number] [place] [address]- 4736 February, [facility] [address] [id number] [place] [address]- 3385 February, [facility] [address] [id number] [place] [address]- 5295 February, [facility] [address] [id number] [place] [address]- 4695 Dec, [facility] [place] [facility] [address] [id number] [place] [address]- 1966 Nov, [facility] [address] [id number] [place] [address]- 4331 Nov, [facility] [address] [id number] [address]- 6260 Nov, [facility] [address], [place] [address]- 5338 Oct, [facility] [address] 5025 Sep, [facility] [address], [place] [address]- 8791 Sep, [facility] [address], [place] [address]- 6518 Sep, [facility] [address] [place] [address] 08566- 0067 Sep, [facility] [address] [place] [address] 37793- 3091 Sep, [facility] [address] [place] [address] 67888- 7117 Sep, [facility] [address], [place] [address]- 6539 Sep, [facility] [address], [place] [address]- 3984 Sep, [facility] [address], [place] [address]- 8553 Sep, [facility] [address], [place] [address]- 4733 Sep, [facility] [address], [place] [address]- 0963 Sep, [facility] [address], [place] [address]- 6603 Sep, [facility] [address], [place] [address]- 8125 Aug, IMMUNIZATIONS No Known Immunizations SOCIAL HISTORY Never Assessed REASON FOR VISIT cherie PLAN OF CARE Activity Details Follow Up prn Reason:Extract #29 VITAL SIGNS Height 70 in 2017-07-29 Blood pressure systolic 129 mmHg 2017-07-29 Blood pressure diastolic 81 mmHg 2017-07-29 MEDICATIONS Medication Instructions Dosage Frequency Start Date End Date Duration Status Insulin Syringe/Needle 28G X 1/2 for use with Levemir 2 times a day 1 Syringe 12h Dec, 30 days Active Proventil HFA 108 (90 Base) MCG/ACT Inhalation every 4 hrs 2 puffs as needed 4h Dec, Active Actos 45 MG Orally Once a day 1 tablet 24h 30 days Active Ferrous Sulfate 325 (65 Fe) MG Orally 3 times a day 1 tablet 8h 30 days Active Levemir 100 UNIT/ML Subcutaneous daily 100 units 24h 30 days Active Metformin HCl 1000 MG Orally Twice a day 1 tablet 12h 30 days Active Amoxicillin 500 MG Orally every 8 hrs 1 capsule 8h Jul, Jul, 7 days Active Pravastatin Sodium 20 mg Orally Once a day 1 tablet 24h 30 days Active Diovan 40 mg Orally Once a day 1 tablet 24h 90 days Active Flomax 0.4 MG Orally Once a day 1 capsule 24h 30 Active RESULTS No Results PROCEDURES Procedure Date Ordered Result Body Site LTD ORAL EVALUATION - PROBLEM FOCUS Jul 29, 2017 INTRAORL-PERIAPICAL 1 FILM [id number] Jul 29, 2017 INSTRUCTIONS MEDICATIONS ADMINISTERED No Known Medications [...] Iron Def. Anemia, Chest pain, DM [facility] 0639
--- OUTSIDE RECORDS SUMMARY | 2019-02-11 12:59 | XMS REPORT ---
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 Name Role Phone LALO LOPEZ Unavailable PROBLEMS Type Condition ICD9-CM Code [id number] Code Onset Dates Condition Status SNOMED Code Problem Iron deficiency anemia due to chronic blood loss D50.0 Active 20417059 Problem Pure hypercholesterolemia, unspecified E78.00 Active 430189175 Problem Hypercholesteremia E78.0 Active 484757826 Problem Other male erectile dysfunction N52.8 Active 010965968 Problem Proteinuria R80.9 Active 40270360 Problem Chronic fatigue R53.82 Active 84842299 Problem Environmental allergies Z91.09 Active 185890094 Problem Alcohol abuse F10.10 Active 22830114 Problem Benign prostatic hyperplasia without lower urinary tract symptoms N40.0 Active 432700480 Problem Chronic hepatitis C without hepatic coma B18.2 Active 881572894 Problem Sexual dysfunction R37 Active 94948333 Problem Other iron deficiency anemia D50.8 Active 95623062 Problem Erectile dysfunction N52.9 Active 509441629 Problem Drug abuse and dependence F19.20 Active 1798482 Problem HTN (hypertension) I10 Active 44658303 Problem Type 2 diabetes mellitus with other specified complication E11.69 Active [id number] Problem Chronic obstructive pulmonary disease, unspecified COPD type J44.9 Active 54133906 Problem Epididymitis N45.1 Active 85310815 Problem Dental caries, unspecified K02.9 Active 20120220 Problem Mixed hyperlipidemia E78.2 Active 664608915 Problem Anemia D64.9 Active 849388541 Problem Essential hypertension I10 Active 79010546 Problem 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 Active [id number] ALLERGIES No Information ENCOUNTERS Encounter Location Date Diagnosis [facility] [address] [facility] [id number] [address] Jan, Sebaceous cyst L72.3 [facility] [address], [place] [address] Jan, [facility] [id number] [place] [address]29- 3838 Jan, [facility] [address] [place] [address] 10130- 3416 Jan, Type 2 diabetes mellitus with other [...] anemia due to chronic blood loss D50.0 [place] [id number], [place] [address] Nov, Dental caries K02.9 [facility] [id number] [place] [id number] Nov, Dental caries K02.9 [place] [id number] [place] [address] 86355- 9078 Oct, HTN (hypertension) I10 [place] [address] [place] [address] 38784- 4074 Sep, Type 2 diabetes mellitus with other specified complication E11.69 [facility] [address] [place] [address] 13318- 4006 Sep, [facility] [address] [place] [address] 07168- 6439 Aug, HTN (hypertension) I10 ; Type 2 diabetes mellitus with other specified complication E11.69 ; Benign prostatic hyperplasia without lower urinary tract symptoms N40.0 and Other iron deficiency anemia D50.8 [facility] [place] [address] [id number] Aug, [facility] [id number] [id number] Aug, [facility] [address] [id number] Jul, Dental examination Z01.20 [facility] [address] [place] [address] 10431- 8356 Jul, Type 2 diabetes mellitus with other specified complication E11.69 [place] [id number] [place] [address] 16689- 3507 May, [place] [address] [place] [address] 62510- 1789 Apr, Type 2 diabetes mellitus with other [...] chronic blood loss D50.0 and Hypercholesteremia E78.0 [place] [address] [place] [address] 17627- 9375 Mar, Diabetes mellitus E11.9 ; Hypercholesteremia E78.0 and Type 2 diabetes mellitus with other specified complication E11.69 [place] [address], [place] [address] Mar, [facility] [address], [place] [address] Mar, Iron deficiency anemia due to chronic blood loss D50.0 [facility] [address], [place] [address] 89[address] 12 Mar, 2017 Type 2 diabetes mellitus with other specified complication E11.69 and Iron deficiency anemia due to chronic blood loss D50.0 [place] [address] [place] [address] 02850- 4537 Mar, Iron deficiency anemia due to chronic blood loss D50.0 [place] [id number] [place] [address] 85247- 8681 February, [place] [address] [address]- [address] February, Iron deficiency anemia due to chronic blood loss D50.0 [place] [address] 0[address]16- 6190 February, [place] [address] [address]34- 6000 February, Anemia D64.[address] [address] February, Anemia D64.9 and 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 [address]- 7939 Jan, Chest discomfort R07.89 ; Type 2 diabetes mellitus with other specified complication E11.69 ; HTN (hypertension) I10 ; Mixed hyperlipidemia E78.2 ; Dyspnea on exertion R06.09 and Tobacco use Z72.[address] 8[address]65- 8586 Dec, [place] [id number] [place] [address] 10533- 3945 Dec, [address] 06[address]- 9989 Dec, Diabetes mellitus E11.9 ; HTN (hypertension) I10 ; Hypercholesteremia E78.0 ; Alcohol abuse F10.10 ; Proteinuria R80.9 ; Essential hypertension I10 ; Chronic hepatitis C with hepatic coma B18.2 ; Benign nodular prostatic hyperplasia with lower urinary tract symptoms N40.1 and Anemia D64.9 [place] [id number] [place] [address] 72981- 5606 Jul, Epididymitis N45.1 and Testicle swelling N50.[address] [address]- 4330 13 Jul, 2016 Type 2 diabetes mellitus with other specified complication E11.69 ; Hypercholesteremia E78.0 ; Environmental allergies Z91.09 ; Erectile dysfunction N52.9 ; Alcohol abuse F10.10 ; Drug abuse and dependence F19.20 ; Epididymitis N45.1 ; Essential hypertension I10 and Chronic obstructive pulmonary disease, unspecified COPD type J44.9 [place] [address] 82098- 8145 10 Jul, 2016 [place] [address] 0[address]- 0187 10 Jul, 2016 Epididymitis, left N45.1 [place] [address] 86692- 5353 05 Feb, 2016 Diabetes mellitus E11.9 [place] [id number] [place] [address] 45078- 4255 27 Jan, 2016 Dental examination Z01.20 and Dental caries K02.9 [place] [address] 08352- 1477 07 Jan, 2016 Type 2 diabetes mellitus with other specified complication E11.69 ; HTN (hypertension) I10 ; Hypercholesteremia E78.0 ; Alcohol abuse F10.10 ; Proteinuria R80.9 and Dental caries, unspecified K02.9 [place] [id number] [place] [address] 66653- 7048 Dec, [place] [address] 6[address]43- 4071 Dec, Sebaceous cyst L72.3 ; HTN (hypertension) I10 ; Hypercholesteremia E78.0 ; Proteinuria R80.9 and Anemia D64.9 [place] [id number] [place] [address] 56845- 9057 Dec, Anemia D64.9 [place] [id number] [place] [address] 79090- 0897 Dec, Physical exam, pre-employment Z02.1 ; Drug abuse and dependence F19.20 ; UTI (urinary tract infection) N39.0 ; Proteinuria R80.9 ; Cellulitis L03.90 and Type 2 diabetes mellitus with other specified complication E11.69 [facility] [id number] [place] [address] 54066- 5101 29 Nov, 2016 Type 2 diabetes mellitus with other specified complication E11.69 ; Hepatitis C 070.70 ; Proteinuria R80.9 ; Diabetes mellitus E11.9 ; HTN (hypertension) I10 ; Hypercholesteremia E78.0 ; Environmental allergies Z91.09 ; Erectile dysfunction N52.9 and Alcohol abuse F10.10 [facility] [address] 34792- 1308 12 Oct, 2015 [facility] [address] [id number] 08 Sep, 2015 Encounter for dental examination Z01.20 ; Dental examination Z01.20 and Dental caries K02.9 [place] [address] 02540- 0092 Aug, Tooth infection K04.7 [facility] [address] 72099- 7263 Aug, [place] [address] 04804- 3465 Jul, [place] [address] 80244- 0807 Jun, Shoulder pain 719.41 [facility] [address] 87701- 9167 Jun, Hepatitis C 070.70 [facility] [address] 16755- 3335 Jun, Essential hypertension, benign 401.1 ; Psychosexual dysfunction with inhibited sexual excitement 302.72 ; Proteinuria 791.0 ; Unspecified viral hepatitis C without hepatic coma 070.70 ; Diabetes mellitus without mention of complication, type II or unspecified type, uncontrolled 250.02 ; Joint pain 719.40 ; Hepatitis C 070.70 and Hypercholesterolemia 272.0 [facility] [address] [facility] [id number] [place] [address]- [address]21 04 Jun, 2015 [facility] [address] [facility] [id number] [place] [address]- 5117 Apr, [facility] [address] [facility] [id number], [place] [address] 3698 Apr, [facility] [address] [facility] [id number] [place] [address]- 5348 Mar, [facility] [address] [id number] [place] [address]- 4821 Jan, [facility] [address] [facility] [id number] [place] [address]- 1686 Jan, [facility] [address] [place] [address]- 8443 Dec, [facility] [address] [facility] [id number], [place] [address]- 0749 Dec, [facility] [address] [place] [address]- 8098 Dec, [facility] [id number], [place] [address]- 5733 Dec, [facility] [id number], [place] [address]- 3265 Jun, [facility] [address] [facility] [id number], [place] [address]- 3462 Jun, [facility] [address] [facility] [id number], [place] [address]- 7945 Jun, [facility] [address] [facility] [id number], [place] [address]- 2543 Jun, [facility] [id number], [place] [address]- 8866 February, [facility] [address] [id number] [place] [address] 2544 February, [facility] [address] [id number] [place] [address]- 5926 February, [facility] [address] [id number] [place] [address]- 2546 February, [facility] [place] [facility] [address] [id number] [place] [address]- 2546 February, [facility] [address] [id number] [place] [address]- 9989 Dec, [facility] [place] [facility] [address] [id number] [place] [address]- 5458 Dec, [facility] [address] [id number] [place] [address]- 1441 Oct, [facility] [address] [id number] [place] [address]- 3197 Oct, [facility] [address] [id number] [place] [address]- 2348 Sep, [facility] [address] [id number] [place] [address]- 0044 Sep, [facility] [place] [facility] [address] [id number] [place] [address]- 3066 Jul, [facility] [place] [facility] [address] [id number] [place] [address]- 2543 Jul, [facility] [place] [facility] [address] [id number] [place] [address]- 9375 Jul, [facility] [place] [facility] [address] [id number] [place] [address]- 3986 Jul, [facility] [place] [facility] [address] [id number] [place] [address]- 2543 Jun, [facility] [place] [facility] [address] [id number] [place] [address]- 9415 Jun, [facility] [address] [id number] [place] [address]- 3319 Apr, [facility] [address] [id number] [place] [address]- 2253 Apr, [facility] [address] [id number] [place] [address]- 2653 Mar, [facility] [address] [id number] [place] [address]- 2633 February, [facility] [address] [id number] [place] [address]- 1496 February, [facility] [address] [id number] [place] [address]- 2849 February, [facility] [address] [id number] [place] [address]- 0157 February, [facility] [address] [id number] [place] [address]- 9700 February, [facility] [address] [id number] [place] [address]- 5094 February, [facility] [address] [id number] [place] [address]- 0163 February, [facility] [address] [id number] [place] [address]- 0995 February, [facility] [place] [facility] [address] [id number] [place] [address]- 8773 Dec, [facility] [place] [facility] [address] [id number] [place] [address]- 3906 Nov, [facility] [place] [facility] [address] [id number] [place] [address]- 7957 Nov, [facility] [place] [facility] [address] [id number] [place] [address]- 5006 Nov, [facility] [place] [facility] [address], [place] [address]- 3414 Oct, [facility] [address] [facility] [id number] [address]147 Sep, [facility] [address] [facility] [id number] 8548 Sep, [facility] [address] [facility] [id number] 4686 Sep, [facility] [address] [facility] [id number], [place] [address]- 9935 Sep, [facility] [address] [place] [address] 30513- 3620 Sep, [facility] [address], [place] [address]- 1312 Sep, [facility] [address], [place] [address]- 4472 Sep, [facility] [address], [place] [address]- 1073 Sep, [facility] [address], [place] [address]- 3187 Sep, [facility] [address], [place] [address]- 9896 Sep, [facility] [id number], [place] [address]- 9757 Sep, [facility] [address], [place] [address]- 6391 Sep, [facility] [address], [place] [address]- 0228 Aug, IMMUNIZATIONS No Known Immunizations SOCIAL HISTORY [...] Iron Def. Anemia, Chest pain, DM type 2-[facility] 2616
--- OUTSIDE RECORDS SUMMARY | 2019-02-11 12:59 | XMS REPORT ---
Author Author DOUGLAS HUERTA [facility] Address Unknown Care Team Providers Care Otr [employer] Driver Name Role Phone DOUGLAS HUERTA Unavailable PROBLEMS Type Condition ICD9-CM Code [id number] Code Onset Dates Condition Status SNOMED Code Problem Iron deficiency anemia due to chronic blood loss D50.0 Active 76643337 Problem Pure hypercholesterolemia, unspecified E78.00 Active 284443985 Problem Hypercholesteremia E78.0 Active 669602756 Problem Other male erectile dysfunction N52.8 Active 453517171 Problem Proteinuria R80.9 Active 55773248 Problem Chronic fatigue R53.82 Active 12236910 Problem Environmental allergies Z91.09 Active 140567234 Problem Alcohol abuse F10.10 Active 77399142 Problem Benign prostatic hyperplasia without lower urinary tract symptoms N40.0 Active 127795546 Problem Chronic hepatitis C without hepatic coma B18.2 Active 990400448 Problem Sexual dysfunction R37 Active 00636684 Problem Other iron deficiency anemia D50.8 Active 45410779 Problem Erectile dysfunction N52.9 Active 628551261 Problem Drug abuse and dependence F19.20 Active 2226463 Problem HTN (hypertension) I10 Active 44771190 Problem Type 2 diabetes mellitus with other specified complication E11.69 Active [id number] Problem Chronic obstructive pulmonary disease, unspecified COPD type J44.9 Active 20250847 Problem Epididymitis N45.1 Active 02876122 Problem Dental caries, unspecified K02.9 Active 37916214 Problem Mixed hyperlipidemia E78.2 Active 385094354 Problem Anemia D64.9 Active 226498646 Problem Essential hypertension I10 Active 22805621 Problem 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 Active [id number] ALLERGIES No Information ENCOUNTERS Encounter Location Date Diagnosis [facility] [address] [facility] [id number] [address] Jan, Sebaceous cyst L72.3 [facility] [address] [address] Jan, [facility] [id number] [place] [address] 94723- 2587 Jan, [facility] [id number] [place] [address] 59238- 7535 Jan, Type 2 diabetes mellitus with other [...] anemia due to chronic blood loss D50.0 [place] [address] [place] [address] 22862- 2177 Nov, Dental caries K02.9 [facility] [id number] [place] [address] [id number] Nov, Dental caries K02.9 [place] [id number] [place] [address] 35959- 9474 Oct, HTN (hypertension) I10 [place] [address] [place] [address] 92986- 3081 Sep, Type 2 diabetes mellitus with other specified complication E11.69 [place] [id number] [place] [address] 54666- 8557 Sep, [place] [id number] [place] [address] 67487- 5237 Aug, HTN (hypertension) I10 ; Type 2 diabetes mellitus with other specified complication E11.69 ; Benign prostatic hyperplasia without lower urinary tract symptoms N40.0 and Other iron deficiency anemia D50.8 [facility] [address] [place] [id number] Aug, [facility] [id number] [place] [address] [id number] Aug, [facility] [address] [facility] [id number] [id number] Jul, Dental examination Z01.20 [place] [address] [address] Jul, Type 2 diabetes mellitus with other specified complication E11.69 [place] [address] [place] [address] 64068- 6375 May, [place] [address] [place] [address] 41277- 3525 Apr, Type 2 diabetes mellitus with other specified complication E11.69 ; Proteinuria R80.9 ; HTN (hypertension) I10 ; Erectile dysfunction N52.9 ; Chronic obstructive pulmonary disease, unspecified COPD type J44.9 ; Chronic hepatitis C without hepatic coma B18.2 ; 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 ; Iron deficiency anemia due to chronic blood loss D50.0 and Hypercholesteremia E78.0 [place] [address] [place] [address] 86922- 8334 2017 Diabetes mellitus E11.9 ; Hypercholesteremia E78.0 and Type 2 diabetes mellitus with other specified complication E11.69 [place] [address] [address] 8[address] Mar, [place] [address] [address] 5985 Mar, Iron deficiency anemia due to chronic blood loss D50.0 [place] [address] [address] 12 Mar, 2017 Type 2 diabetes mellitus with other specified complication E11.69 and Iron deficiency anemia due to chronic blood loss D50.0 [facility] [address] [address] 07 Mar, 2017 Iron deficiency anemia due to chronic blood loss D50.0 [place] [address] [place] [address] 81407- 3818 February, [place] [id number] [place] [address] 47684- 3048 February, Iron deficiency anemia due to chronic blood loss D50.0 [place] [id number] [place] [address] 27712- 7181 February, [place] [id number] [place] [address] 02730- 6093 February, Anemia D64.9 [place] [address] [address]- 9434 February, Anemia D64.9 and 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 [place] [id number] [place] [address] 82938- 1792 Jan, Chest discomfort R07.89 ; Type 2 diabetes mellitus with other specified complication E11.69 ; HTN (hypertension) I10 ; Mixed hyperlipidemia E78.2 ; Dyspnea on exertion R06.09 and Tobacco use Z72.0 [place] [id number] [place] [address] 10008- 3550 Dec, [place] [id number] [place] [address] 62004- 0046 Dec, [place] [id number] [place] [address] 71125- 5317 Dec, Diabetes mellitus E11.9 ; HTN (hypertension) I10 ; Hypercholesteremia E78.0 ; Alcohol abuse F10.10 ; Proteinuria R80.9 ; Essential hypertension I10 ; Chronic hepatitis C with hepatic coma B18.2 ; Benign nodular prostatic hyperplasia with lower urinary tract symptoms N40.1 and Anemia D64.9 [place] [id number] [place] [address] 78953- 6602 Jul, Epididymitis N45.1 and Testicle swelling N50.89 [place] [id number] [place] [address] 28344- 6436 13 Jul, 2016 Type 2 diabetes mellitus with other specified complication E11.69 ; Hypercholesteremia E78.0 ; Environmental allergies Z91.09 ; Erectile dysfunction N52.9 ; Alcohol abuse F10.10 ; Drug abuse and dependence F19.20 ; Epididymitis N45.1 ; Essential hypertension I10 and Chronic obstructive pulmonary disease, unspecified COPD type J44.9 [place] [address] [address]- 6976 Jul, [place] [address] 66318- 7398 Jul, Epididymitis, left N45.1 [place] [address] 77395- 5351 05 Feb, 2016 Diabetes mellitus E11.9 [place] [address] 84257- 1067 27 Jan, 2016 Dental examination Z01.20 and Dental caries K02.9 [place] [address] 10210- 9948 07 Jan, 2016 Type 2 diabetes mellitus with other specified complication E11.69 ; HTN (hypertension) I10 ; Hypercholesteremia E78.0 ; Alcohol abuse F10.10 ; Proteinuria R80.9 and Dental caries, unspecified K02.9 [place] [id number] [place] [address] 50521- 9222 Dec, [place] [address] 97594- 9811 Dec, Sebaceous cyst L72.3 ; HTN (hypertension) I10 ; Hypercholesteremia E78.0 ; Proteinuria R80.9 and Anemia D64.9 [place] [address] 27912- 4834 Dec, Anemia D64.9 [place] [address] 18849- 8554 Dec, Physical exam, pre-employment Z02.1 ; Drug abuse and dependence F19.20 ; UTI (urinary tract infection) N39.0 ; Proteinuria R80.9 ; Cellulitis L03.90 and Type 2 diabetes mellitus with other specified complication E11.69 [place] [address] 00165- 6848 29 Nov, 2015 Type 2 diabetes mellitus with other specified complication E11.69 ; Hepatitis C 070.70 ; Proteinuria R80.9 ; Diabetes mellitus E11.9 ; HTN (hypertension) I10 ; Hypercholesteremia E78.0 ; Environmental allergies Z91.09 ; Erectile dysfunction N52.9 and Alcohol abuse F10.10 [place] [address] 09406- 8493 Oct, [facility] [address] [id number] Sep, 2015 Encounter for dental examination Z01.20 ; Dental examination Z01.20 and Dental caries K02.[address] [address]- 5156 Aug, Tooth infection K04.7 [place] [address] 34433- 6579 Aug, [place] [address] 87794- 5475 Jul, [place] [address] 91533- 8248 Jun, Shoulder pain 719.41 [place] [address] 31492- 1304 Jun, Hepatitis C 070.70 [place] [address] 84389- 0594 Jun, Essential hypertension, benign 401.1 ; Psychosexual dysfunction with inhibited sexual excitement 302.72 ; Proteinuria 791.0 ; Unspecified viral hepatitis C without hepatic coma 070.70 ; Diabetes mellitus without mention of complication, type II or unspecified type, uncontrolled 250.02 ; Joint pain 719.40 ; Hepatitis C 070.70 and Hypercholesterolemia 272.0 [facility] [place] [facility] [address] [id number] [place] [address]- 6728 Jun, [facility] [place] [facility] [address] [id number] [place] [address]- 9252 Apr, [facility] [place] [facility] [address] [id number] [place] [address]- 9744 Apr, [facility] [place] [facility] [address] [id number] [place] [address]- 6252 Mar, [facility] [place] [facility] [address] [id number] [place] [address]- 7982 Jan, [facility] [place] [facility] [address] [id number] [place] [address]- 2758 Jan, [facility] [place] [facility] [address] [facility] [id number] [place] [address]- 2793 Dec, [facility] [place] [facility] [address] [id number] [place] [address]- 8004 Dec, [facility] [place] [facility] [address] [id number] [place] [address]- 6096 Dec, [facility] [place] [facility] [address] [facility] [id number] [place] [address]- 4189 Dec, [facility] [place] [facility] [address] [id number] [place] [address]- 7281 Jun, [facility] [place] [facility] [address] [id number] [place] [address]- 2647 Jun, [facility] [place] [facility] [address] [id number] [place] [address]- 8340 Jun, [facility] [place] [facility] [address] [facility] [id number] [place] [address]- 7171 Jun, [facility] [place] [facility] [address] [facility] [id number] [place] [address]- 9389 February, [facility] [place] [facility] [address] [id number] [place] [address]- 5089 February, [facility] [address] [id number] [place] [address]- 0292 February, [facility] [address] [id number] [place] [address] 2546 February, [facility] [address] [id number] [place] [address]- 0186 February, [facility] [address] [id number] [place] [address]- 9180 Dec, [facility] [address] [id number] [place] [address]- 5163 Dec, [facility] [address] [id number] [place] [address]- 4240 Oct, [facility] [address] [id number] [place] [address]- 1994 Oct, [facility] [address] [id number] [place] [address]- 6276 Sep, [facility] [address] [id number] [place] [address]- 4303 Sep, [facility] [address] [id number] [place] [address]- 1718 Jul, [facility] [place] [facility] [address] [id number] [place] [address]- 7127 Jul, [facility] [address] [id number] [place] [address]- 2135 Jul, [facility] [place] [facility] [address] [id number] [place] [address]- 3418 Jul, [facility] [place] [facility] [address] [id number] [place] [address]- 9766 24 Jun, 2013 [facility] [place] [facility] [address] [id number] [place] [address]- 5887 Jun, [facility] [address] [id number] [place] [address]- 0718 Apr, [facility] [address] [id number] [place] [address]- 4831 Apr, [facility] [address] [id number] [place] [address]- 0851 Mar, [facility] [address] [id number] [place] [address]- 8744 February, [facility] [address] [id number] [place] [address]- 3555 February, [facility] [address] [id number] [place] [address]- 6598 February, [facility] [address] [id number] [place] [address]- 7677 February, [facility] [address] [id number] [place] [address]- 3520 February, [facility] [address] [id number] [place] [address]- 7635 February, [facility] [address] [id number] [place] [address]- 4070 February, [facility] [place] [facility] [address] [id number] [place] [address]- 0275 February, [facility] [place] [facility] [address] [id number] [place] [address]- 5125 Dec, [facility] [place] [facility] [address] [id number] [place] [address]- 6145 Nov, [facility] [place] [facility] [address] [id number] [place] [address]- 9536 Nov, [facility] [place] [facility] [address] [id number] [place] [address]- 4636 Nov, [facility] [place] [facility] [address] [id number] [place] [address]- 0157 Oct, [facility] [address] [address]- 2198 Sep, [facility] [address] [address]- 6864 Sep, [facility] [address] [address]- 5693 Sep, [facility] [address] [address]- 0683 Sep, [facility] [address] [place] [address] 05584- 6198 Sep, [facility] [address] [address]- 7218 Sep, [facility] [address] [place] [address] 68070- 3915 Sep, [facility] [address] [address]- 4801 Sep, [facility] [address] [address]- 4148 Sep, [facility] [address] [address]- 8694 Sep, [facility] [address] [address]- 0669 Sep, [facility] [address] [address]- 7831 Sep, [facility] [id number] [address]- 5435 Aug, IMMUNIZATIONS No Known Immunizations SOCIAL HISTORY Never Assessed REASON FOR VISIT PLAN OF CARE VITAL SIGNS MEDICATIONS Unknown [...] Iron Def. Anemia, Chest pain, DM type 2-[facility] 2616
--- OUTSIDE RECORDS SUMMARY | 2019-02-11 13:00 | XMS REPORT ---
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 Name Role Phone JOHN LAOL Unavailable PROBLEMS Type Condition ICD9-CM Code [id number] Code Onset Dates Condition Status SNOMED Code Problem Iron deficiency anemia due to chronic blood loss D50.0 Active 99450542 Problem Pure hypercholesterolemia, unspecified E78.00 Active 291464928 Problem Hypercholesteremia E78.0 Active 914009756 Problem Other male erectile dysfunction N52.8 Active 787126795 Problem Proteinuria R80.9 Active 07836790 Problem Chronic fatigue R53.82 Active 89109208 Problem Environmental allergies Z91.09 Active 307905324 Problem Alcohol abuse F10.10 Active 84883630 Problem Benign prostatic hyperplasia without lower urinary tract symptoms N40.0 Active 385858004 Problem Chronic hepatitis C without hepatic coma B18.2 Active 405620179 Problem Sexual dysfunction R37 Active 76715122 Problem Other iron deficiency anemia D50.8 Active 77339652 Problem Erectile dysfunction N52.9 Active 395413520 Problem Drug abuse and dependence F19.20 Active 4523018 Problem HTN (hypertension) I10 Active 19209855 Problem Type 2 diabetes mellitus with other specified complication E11.69 Active [id number] Problem Chronic obstructive pulmonary disease, unspecified COPD type J44.9 Active 74684630 Problem Epididymitis N45.1 Active 35833154 Problem Dental caries, unspecified K02.9 Active 64141676 Problem Mixed hyperlipidemia E78.2 Active 736868691 Problem Anemia D64.9 Active 550263892 Problem Essential hypertension I10 Active 90155418 Problem 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 [id number] [place] [address] 42985- 3763 Mar, Essential hypertension I10 [facility] [id number] [place] [address] 27451- 4950 Mar, [facility] [id number] [place] [address] 30821- 8517 Jan, Sebaceous cyst L72.3 [place] [address] 71658- 5647 Jan, [facility] [id number] [place] [address] 12011- 0548 Jan, [place] [address] 79732- 0933 Jan, Type 2 diabetes mellitus with other [...] anemia due to chronic blood loss D50.0 [place] [id number] [place] [address] 70869- 8607 Nov, Dental caries K02.9 [facility] [place] [facility] [id number] [place] [address] [id number] Nov, Dental caries K02.9 [place] [id number] [place] [address] 65169- 2302 Oct, HTN (hypertension) I10 [place] [id number] [place] [address] 63606- 2389 Sep, Type 2 diabetes mellitus with other specified complication E11.69 [facility] [id number] [place] [address] 90399- 6047 Sep, [place] [address] 41572- 6896 Aug, HTN (hypertension) I10 ; Type 2 diabetes mellitus with other specified complication E11.69 ; Benign prostatic hyperplasia without lower urinary tract symptoms N40.0 and Other iron deficiency anemia D50.8 [facility] [id number] [id number] Aug, [facility] [id number] [id number] Aug, [facility] [place] [facility] [id number] [place] [address] [id number] Jul, Dental examination Z01.20 [place] [id number] [place] [address] 00801- 6425 Jul, Type 2 diabetes mellitus with other specified complication E11.69 [place] [id number] [place] [address] 82322- 9419 May, [place] [id number] [place] [address] 15792- 9240 Apr, Type 2 diabetes mellitus with other specified complication E11.69 ; Proteinuria R80.9 ; HTN (hypertension) I10 ; Erectile dysfunction N52.9 ; Chronic obstructive pulmonary disease, unspecified COPD type J44.9 ; Chronic hepatitis C without hepatic coma B18.2 ; 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 ; Iron deficiency anemia due to chronic blood loss D50.0 and Hypercholesteremia E78.0 [place] [id number] [place] [address] 94803- 0039 Mar, Diabetes mellitus E11.9 ; Hypercholesteremia E78.0 and Type 2 diabetes mellitus with other specified complication E11.69 [place] [id number] [place] [address] 58501- 3541 Mar, [place] [id number] [place] [address] 27770- 7520 Mar, Iron deficiency anemia due to chronic blood loss D50.0 [place] [id number] [place] [address] 11510- 4366 Mar, Type 2 diabetes mellitus with other specified complication E11.69 and Iron deficiency anemia due to chronic blood loss D50.0 [place] [id number] [place] [address] 40691- 5279 Mar, Iron deficiency anemia due to chronic blood loss D50.0 [place] [id number] [place] [address] 18766- 4932 February, [place] [id number] [place] [address] [id number]- 8263 February, Iron deficiency anemia due to chronic blood loss D50.0 [place] [id number] [place] [address] 13207- 5005 February, [place] [id number] [place] [address] 76224- 9716 February, Anemia D64.9 [place] [id number] [place] [address] 47404- 5395 February, Anemia D64.9 and 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 [address] [place] [address] 18890- 1325 Jan, Chest discomfort R07.89 ; Type 2 diabetes mellitus with other specified complication E11.69 ; HTN (hypertension) I10 ; Mixed hyperlipidemia E78.2 ; Dyspnea on exertion R06.09 and Tobacco use Z72.0 [address] [address] Dec, [address] [place] [address] 24480- 7071 Dec, [id number] [place] [address] 96348- 0070 Dec, Diabetes mellitus E11.9 ; HTN (hypertension) I10 ; Hypercholesteremia E78.0 ; Alcohol abuse F10.10 ; Proteinuria R80.9 ; Essential hypertension I10 ; Chronic hepatitis C with hepatic coma B18.2 ; Benign nodular prostatic hyperplasia with lower urinary tract symptoms N40.1 and Anemia D64.9 [place] [id number] [place] [address] 71526- 9205 Jul, Epididymitis N45.1 and Testicle swelling N50.89 [place] [address] 72268- 8932 13 Jul, 2016 Type 2 diabetes mellitus with other specified complication E11.69 ; Hypercholesteremia E78.0 ; Environmental allergies Z91.09 ; Erectile dysfunction N52.9 ; Alcohol abuse F10.10 ; Drug abuse and dependence F19.20 ; Epididymitis N45.1 ; Essential hypertension I10 and Chronic obstructive pulmonary disease, unspecified COPD type J44.9 [place] [address] 78284- 8281 Jul, [place] [address] 09766- 8750 Jul, Epididymitis, left N45.1 [place] [address] 84646- 5117 February, Diabetes mellitus E11.9 [place] [address] 30474- 7194 27 Jan, 2016 Dental examination Z01.20 and Dental caries K02.9 [place] [id number] [place] [address] 66464- 9370 Jan, Type 2 diabetes mellitus with other specified complication E11.69 ; HTN (hypertension) I10 ; Hypercholesteremia E78.0 ; Alcohol abuse F10.10 ; Proteinuria R80.9 and Dental caries, unspecified K02.9 [place] [address] 02175- 6446 Dec, [place] [address] 95228- 3370 Dec, Sebaceous cyst L72.3 ; HTN (hypertension) I10 ; Hypercholesteremia E78.0 ; Proteinuria R80.9 and Anemia D64.9 [facility] [address] [address]- 0953 Dec, Anemia D64.9 [place] [id number] [place] [address] 14068- 0397 Dec, Physical exam, pre-employment Z02.1 ; Drug abuse and dependence F19.20 ; UTI (urinary tract infection) N39.0 ; Proteinuria R80.9 ; Cellulitis L03.90 and Type 2 diabetes mellitus with other specified complication E11.69 [place] [id number] [place] [address] 12921- 1815 Nov, Type 2 diabetes mellitus with other specified complication E11.69 ; Hepatitis C 070.70 ; Proteinuria R80.9 ; Diabetes mellitus E11.9 ; HTN (hypertension) I10 ; Hypercholesteremia E78.0 ; Environmental allergies Z91.09 ; Erectile dysfunction N52.9 and Alcohol abuse F10.10 [place] [id number] [place] [address] 10215- 8199 Oct, [facility] [id number] [place] [address] [id number] Sep, Encounter for dental examination Z01.20 ; Dental examination Z01.20 and Dental caries K02.9 [place] [id number] [place] [address] 12787- 3516 Aug, Tooth infection K04.7 [place] [id number] [place] [address] 19324- 3877 Aug, [place] [id number] [place] [address] 05214- 7385 Jul, [place] [address] 73881- 6963 Jun, Shoulder pain 719.41 [place] [id number] [place] [address] 77025- 0251 Jun, Hepatitis C 070.70 [place] [address] 7545 Jun, Essential hypertension, benign 401.1 ; Psychosexual dysfunction with inhibited sexual excitement 302.72 ; Proteinuria 791.0 ; Unspecified viral hepatitis C without hepatic coma 070.70 ; Diabetes mellitus without mention of complication, type II or unspecified type, uncontrolled 250.02 ; Joint pain 719.40 ; Hepatitis C 070.70 and Hypercholesterolemia 272.0 [facility] [id number] [place] [address] 63318- 9978 Jun, [facility] [id number] [place] [address] 43282- 8875 Apr, [facility] [id number] [place] [address] 58318- 4982 Apr, [facility] [id number] [place] [address] 61346- 9309 Mar, [facility] [id number] [address]- 7093 Jan, [facility] [address] [address] Jan, [facility] [id number] [address]- 0662 Dec, [facility] [address], [place] [address]- 8416 Dec, [facility] [address], [place] [address]- 1282 Dec, [facility] [address], [place] [address]- 6232 Dec, [facility] [id number] [address]- 1823 Jun, [facility] [address], [place] [address]- 8786 Jun, [facility] [address] [address] [place] [address]- 7063 15 Jun, 2014 [facility] [place] [facility] [address] [id number] [place] [address]- 8053 Jun, [facility] [place] [facility] [address] [id number] [place] [address]- 1301 February, [facility] [place] [facility] [address] [id number] [place] [address]- 4428 February, [facility] [place] [facility] [address] [id number] [place] [address]- 1592 February, [facility] [place] [facility] [address] [id number] [place] [address]- 9322 February, [facility] [place] [facility] [address] [id number] [place] [address]- 2615 February, [facility] [address] [id number] [place] [address]- 2742 Dec, [facility] [place] [facility] [address] [id number] [place] [address]- 1931 Dec, [facility] [place] [facility] [address] [id number] [place] [address]- 2973 Oct, [facility] [place] [facility] [address] [id number] [place] [address]- 8824 Oct, [facility] [place] [facility] [address] [id number] [place] [address]- 4444 Sep, [facility] [place] [facility] [address] [id number] [place] [address]- 2541 Sep, [facility] [place] [facility] [address] [id number] [place] [address]- 6314 Jul, [facility] [place] [facility] [address] [id number] [place] [address]- 4596 Jul, [facility] [place] [facility] [address] [id number] [place] [address]- 0158 Jul, [facility] [place] [facility] [address] [id number] [place] [address]- 0481 Jul, [facility] [address] [id number] [place] [address]- 7306 Jun, [facility] [address] [id number] [place] [address]- 8972 Jun, [facility] [address] [id number] [place] [address]- 6512 Apr, [facility] [address] [id number] [place] [address]- 9564 Apr, [facility] [address] [id number] [place] [address]- 8088 Mar, [facility] [address] [id number] [place] [address]- 1319 February, [facility] [address] [id number] [place] [address]- 7989 February, [facility] [address] [id number] [place] [address]- 0423 February, [facility] [address] [id number] [place] [address]- 9526 February, [facility] [address] [id number] [place] [address]- 2244 February, [facility] [address] [id number] [place] [address]- 2272 February, [facility] [address] [id number] [place] [address]- 6696 February, [facility] [address] [id number] [place] [address]- 9506 February, [facility] [address] [id number] [place] [address]- 2546 Dec, [facility] [address] [id number] [place] [address]- 2944 Nov, [facility] [address] [id number] [place] [address]- 4316 Nov, [facility] [address] [id number] [place] [address]- 2716 Nov, [facility] [address] [id number] [place] [address]- 4466 Oct, [facility] [address] [id number] [place] [address]- 3148 Sep, [facility] [address] [id number] [place] [address]- 2430 Sep, [facility] [address] [id number] [place] [address]- 8896 Sep, [facility] [address] [id number] [place] [address]- 5237 Sep, [facility] [address] [id number] [place] [address]- 5321 Sep, [facility] [address] [id number] [place] [address]- 1115 Sep, [facility] [address] [facility] [id number] [place] [address]- 9249 Sep, [facility] [address] [id number] [place] [address]- 6699 Sep, [facility] [place] [facility] [address] [id number] [place] [address]- 5727 Sep, [facility] [place] [facility] [address] [id number] [place] [address]- 4437 Sep, [facility] [place] [facility] [address] [id number] [place] 0914 Sep, [facility] [place] [facility] [address] [facility] [id number] [place] [address]- 3470 Sep, [facility] [place] [facility] [address] [facility] [id number] [place] [address]- 0764 Aug, IMMUNIZATIONS No Known Immunizations SOCIAL HISTORY Never Assessed REASON FOR VISIT Refill request PLAN OF CARE VITAL SIGNS MEDICATIONS Medication Instructions Dosage Frequency Start Date End Date Duration Status Amoxicillin 500 MG Orally every 12 hrs 2 capsules 12h Aug, Dec, 10 days Active RESULTS No Results PROCEDURES No [...] Iron Def. Anemia, Chest pain, DM type 2-[facility] 2616 Hospitalization History Chest pain, illicit drug use-[facility] 03/21/2018
--- OUTSIDE RECORDS SUMMARY | 2019-02-11 13:00 | XMS REPORT ---
Author Author DANAY MEDEROS [facility] Address [address] [place] [address] Care Team Providers Care Heel Sprayer Name Role Phone DANAY MEDEROS Unavailable PROBLEMS Type Condition ICD9-CM Code BGZ25-AZ Code Onset Dates Condition Status SNOMED Code Problem Iron deficiency anemia due to chronic blood loss D50.0 Active 08553425 Problem Pure hypercholesterolemia, unspecified E78.00 Active 730276607 Problem Hypercholesteremia E78.0 Active 732875339 Problem Other male erectile dysfunction N52.8 Active 439022657 Problem Proteinuria R80.9 Active 11030387 Problem Chronic fatigue R53.82 Active 21677068 Problem Environmental allergies Z91.09 Active 052435595 Problem Alcohol abuse F10.10 Active 48520928 Problem Benign prostatic hyperplasia without lower urinary tract symptoms N40.0 Active 586303721 Problem Chronic hepatitis C without hepatic coma B18.2 Active 140733133 Problem Sexual dysfunction R37 Active 30018938 Problem Other iron deficiency anemia D50.8 Active 10032465 Problem Erectile dysfunction N52.9 Active 026478427 Problem Drug abuse and dependence F19.20 Active 0705295 Problem HTN (hypertension) I10 Active 29910982 Problem Type 2 diabetes mellitus with other specified complication E11.69 Active [id number] Problem Chronic obstructive pulmonary disease, unspecified COPD type J44.9 Active 89297257 Problem Epididymitis N45.1 Active 11308712 Problem Dental caries, unspecified K02.9 Active 06483296 Problem Mixed hyperlipidemia E78.2 Active 434985338 Problem Anemia D64.9 Active 654390177 Problem Essential hypertension I10 Active 38815368 Problem 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 [id number] [address] Jan, Sebaceous cyst L72.3 [facility] [address], [place] [address] Jan, [facility] [id number] [place] [address] 81336- 2641 Jan, [facility] [id number] [place] [address] 47650- 1287 Jan, Type 2 diabetes mellitus with other [...] anemia due to chronic blood loss D50.0 [facility] [id number] [place] [address] 51743- 3258 Nov, Dental caries K02.[address] [facility] [id number] [place] [id number] Nov, Dental caries K02.9 [facility] [id number] [place] [address] 71897- 1488 Oct, HTN (hypertension) I10 [facility] [id number] [place] [address] 19431- 8096 Sep, Type 2 diabetes mellitus with other specified complication E11.69 [facility] [id number] [place] [address] 53774- 5656 Sep, [facility] [id number] [place] [address] 25488- 7717 Aug, HTN (hypertension) I10 ; Type 2 diabetes mellitus with other specified complication E11.69 ; Benign prostatic hyperplasia without lower urinary tract symptoms N40.0 and Other iron deficiency anemia D50.[address] [facility] [id number] [id number] Aug, [facility] [address] [id number] Aug, [facility] [id number] [id number] Jul, Dental examination Z01.20 [facility] [address] [address] Jul, Type 2 diabetes mellitus with other specified complication E11.69 [place] [id number] [place] [address] 20149- 4608 May, [place] [id number] [place] [address] 23979- 1475 Apr, Type 2 diabetes mellitus with other specified complication E11.69 ; Proteinuria R80.9 ; HTN (hypertension) I10 ; Erectile dysfunction N52.9 ; Chronic obstructive pulmonary disease, unspecified COPD type J44.9 ; Chronic hepatitis C without hepatic coma B18.2 ; 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 ; Iron deficiency anemia due to chronic blood loss D50.0 and Hypercholesteremia E78.0 [place] [id number] [place] [address] 22759- 2564 Mar, Diabetes mellitus E11.9 ; Hypercholesteremia E78.0 and Type 2 diabetes mellitus with other specified complication E11.69 [place] [address], [place] [address] 9671 Mar, [place] [id number] [place] [address] 01104- 4573 Mar, Iron deficiency anemia due to chronic blood loss D50.0 [place] [id number] [place] [address] 70703- 2291 Mar, Type 2 diabetes mellitus with other specified complication E11.69 and Iron deficiency anemia due to chronic blood loss D50.0 [place] [address], [place] [address] 9133 Mar, Iron deficiency anemia due to chronic blood loss D50.0 [facility] [facility] [id number] [place] [address] 29770- 7003 February, [place] [id number] [place] [address] 87205- 1845 February, Iron deficiency anemia due to chronic blood loss D50.0 [place] [id number] [place] [address] 88635- 7430 February, [address] [address]- 7647 February, Anemia D64.9 [place] [id number] [place] [address] 14326- 7727 February, Anemia D64.9 and 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 [place] [id number] [place] [address] 70434- 6165 Jan, Chest discomfort R07.89 ; Type 2 diabetes mellitus with other specified complication E11.69 ; HTN (hypertension) I10 ; Mixed hyperlipidemia E78.2 ; Dyspnea on exertion R06.09 and Tobacco use Z72.0 [place] [id number] [place] [address] 34857- 2172 Dec, [place] [id number] [place] [address] 75150- 3439 Dec, [place] [id number] [place] [address] 88016- 5150 Dec, Diabetes mellitus E11.9 ; HTN (hypertension) I10 ; Hypercholesteremia E78.0 ; Alcohol abuse F10.10 ; Proteinuria R80.9 ; Essential hypertension I10 ; Chronic hepatitis C with hepatic coma B18.2 ; Benign nodular prostatic hyperplasia with lower urinary tract symptoms N40.1 and Anemia D64.9 [address] [place] [address] 04359- 7985 Jul, Epididymitis N45.1 and Testicle swelling N50.[address] [place] [address]- [address] 13 Jul, 2016 Type 2 diabetes mellitus with other specified complication E11.69 ; Hypercholesteremia E78.0 ; Environmental allergies Z91.09 ; Erectile dysfunction N52.9 ; Alcohol abuse F10.10 ; Drug abuse and dependence F19.20 ; Epididymitis N45.1 ; Essential hypertension I10 and Chronic obstructive pulmonary disease, unspecified COPD type J44.9 [place] [address] [address]206- 4912 10 Jul, 2016 [place] [address] 71575- 0255 10 Jul, 2016 Epididymitis, left N45.1 [place] [address] 07094- 8243 05 Feb, 2016 Diabetes mellitus E11.9 [place] [address] 55190- 2968 27 Jan, 2016 Dental examination Z01.20 and Dental caries K02.9 [place] [address] 11281- 7069 07 Jan, 2016 Type 2 diabetes mellitus with other specified complication E11.69 ; HTN (hypertension) I10 ; Hypercholesteremia E78.0 ; Alcohol abuse F10.10 ; Proteinuria R80.9 and Dental caries, unspecified K02.9 [place] [id number] [place] [address] 67601- 5711 Dec, [place] [address] 39553- 1074 Dec, Sebaceous cyst L72.3 ; HTN (hypertension) I10 ; Hypercholesteremia E78.0 ; Proteinuria R80.9 and Anemia D64.9 [place] [address] 46436- 1343 Dec, Anemia D64.9 [place] [address] 46947- 3052 Dec, Physical exam, pre-employment Z02.1 ; Drug abuse and dependence F19.20 ; UTI (urinary tract infection) N39.0 ; Proteinuria R80.9 ; Cellulitis L03.90 and Type 2 diabetes mellitus with other specified complication E11.69 [facility] [id number] [place] [address] 54390- 5744 29 Nov, 2015 Type 2 diabetes mellitus with other specified complication E11.69 ; Hepatitis C 070.70 ; Proteinuria R80.9 ; Diabetes mellitus E11.9 ; HTN (hypertension) I10 ; Hypercholesteremia E78.0 ; Environmental allergies Z91.09 ; Erectile dysfunction N52.9 and Alcohol abuse F10.10 [facility] [address] 68402- 8280 Oct, [facility] [address] [id number] Sep, 2015 Encounter for dental examination Z01.20 ; Dental examination Z01.20 and Dental caries K02.9 [place] [address] 18894- 1803 Aug, Tooth infection K04.7 [place] [address] 04631- 5571 Aug, [place] [address] 68105- 0422 Jul, [place] [address] 45919- 7192 Jun, Shoulder pain 719.41 [place] [address] 59446- 7247 Jun, Hepatitis C 070.70 [facility] [address] 61952- 2477 Jun, Essential hypertension, benign 401.1 ; Psychosexual dysfunction with inhibited sexual excitement 302.72 ; Proteinuria 791.0 ; Unspecified viral hepatitis C without hepatic coma 070.70 ; Diabetes mellitus without mention of complication, type II or unspecified type, uncontrolled 250.02 ; Joint pain 719.40 ; Hepatitis C 070.70 and Hypercholesterolemia 272.0 [facility] [address], [place] [address] Jun, [facility] [address] [facility] [id number] [place] [address]- 8302 Apr, [facility] [id number] [place] [address] 18922- 6780 Apr, [facility] [address] [facility] [id number] [place] [address]- 3892 Mar, [facility] [id number] [place] [address], [place] [address]- 0253 Jan, [facility] [id number] [place] [address]- 1440 Jan, [facility] [id number] [place] [address], [place] [address]- 6566 Dec, [facility] [address], [place] [address]- 3547 Dec, [facility] [address], [place] [address]- 2198 Dec, [facility] [address], [place] [address] 1931 Dec, [facility] [address], [place] [address]- 8253 Jun, [facility] [address] [facility] [id number] [address]- 1308 Jun, [facility] [address], [place] [address]- 7628 Jun, [facility] [id number], [place] [address]- 6285 Jun, [facility] [address], [place] [address]- 4119 February, [facility] [place] [facility] [address] [id number] [place] [address]- 0503 February, [facility] [place] [facility] [address] [id number] [place] [address]- 0236 February, [facility] [place] [facility] [address] [id number] [place] [address]- 5419 February, [facility] [place] [facility] [address] [id number] [place] [address]- 7354 February, [facility] [place] [facility] [address] [id number] [place] [address]- 5728 Dec, [facility] [place] [facility] [address] [id number] [place] [address]- 8385 Dec, [facility] [place] [facility] [address] [id number] [place] [address]- 8758 Oct, [facility] [place] [facility] [address] [id number] [place] [address]- 7951 Oct, [facility] [place] [facility] [address] [id number] [place] [address]- 0103 Sep, [facility] [place] [facility] [address] [id number] [place] [address]- 7348 Sep, [facility] [place] [facility] [address] [id number] [place] [address]- 8557 Jul, [facility] [place] [facility] [address] [id number] [place] [address]- 8009 Jul, [facility] [place] [facility] [address] [id number] [place] [address]- 8024 Jul, [facility] [place] [facility] [address] [id number] [place] [address]- 5136 Jul, [facility] [place] [facility] [address] [id number] [place] [address]- 7556 Jun, [facility] [place] [facility] [address] [id number] [place] [address]- 2415 Jun, [facility] [address] [id number] [place] [address]- 4101 Apr, [facility] [address] [id number] [place] [address]- 1360 Apr, [facility] [address] [id number] [place] [address]- 5118 Mar, [facility] [address] [id number] [place] [address]- 5074 February, [facility] [address] [id number] [place] [address]- 0901 February, [facility] [address] [id number] [place] [address]- 3446 February, [facility] [address] [id number] [place] [address]- 8075 February, [facility] [address] [id number] [place] [address]- 6379 February, [facility] [address] [id number] [place] [address]- 7644 February, [facility] [address] [id number] [place] [address]- 7380 February, [facility] [address] [id number] [place] [address]- 6673 February, [facility] [address] [id number] [place] [address]- 7130 Dec, [facility] [address] [id number] [place] [address]- 1440 Nov, [facility] [address] [id number] [place] [address]- 2546 Nov, [facility] [address] [id number] [place] [address]- 4946 Nov, [facility] [address], [place] [address]- 0105 Oct, [facility] [address] 4377 Sep, [facility] [address], [place] [address]- 1379 Sep, [facility] [address] [place] [address] 440215- 5385 Sep, [facility] [address]- 5335 Sep, [facility] [address] [place] [address] 60437- 6293 Sep, [facility] [address], [place] [address]- 3757 Sep, [facility] [address], [place] [address]- 7596 Sep, [facility] [address], [place] [address]- 3772 Sep, [facility] [address] 6456 Sep, [facility] [address], [place] [address]- 5664 Sep, [facility] [address], [place] [address]- 1250 Sep, [facility] [id number] 6429 Sep, [facility] [address], [place] [address]- 2209 Aug, IMMUNIZATIONS No Known Immunizations SOCIAL HISTORY [...] Iron Def. Anemia, Chest pain, DM type 2-[facility] 2616
--- OUTSIDE RECORDS SUMMARY | 2019-02-11 13:01 | XMS REPORT ---
Author Author DOUGLAS HUERTA [facility] Address Unknown Care Team Providers Care Internal Wholesaler Name Role Phone DOUGLAS HUERTA Unavailable PROBLEMS Type Condition ICD9-CM Code ZRY94-FW Code Onset Dates Condition Status SNOMED Code Problem Iron deficiency anemia due to chronic blood loss D50.0 Active 63418337 Problem Pure hypercholesterolemia, unspecified E78.00 Active 301632943 Problem Hypercholesteremia E78.0 Active 200977792 Problem Other male erectile dysfunction N52.8 Active 398676927 Problem Proteinuria R80.9 Active 42227158 Problem Chronic fatigue R53.82 Active 66503997 Problem Environmental allergies Z91.09 Active 991613593 Problem Alcohol abuse F10.10 Active 63198132 Problem Benign prostatic hyperplasia without lower urinary tract symptoms N40.0 Active 756621006 Problem Chronic hepatitis C without hepatic coma B18.2 Active 446705220 Problem Sexual dysfunction R37 Active 61864380 Problem Other iron deficiency anemia D50.8 Active 80297372 Problem Erectile dysfunction N52.9 Active 485375276 Problem Drug abuse and dependence F19.20 Active 8293332 Problem HTN (hypertension) I10 Active 51716423 Problem Type 2 diabetes mellitus with other specified complication E11.69 Active 196856320156637 Problem Chronic obstructive pulmonary disease, unspecified COPD type J44.9 Active 27924309 Problem Epididymitis N45.1 Active 65645983 Problem Dental caries, unspecified K02.9 Active 28695993 Problem Mixed hyperlipidemia E78.2 Active 545296437 Problem Anemia D64.9 Active 970379737 Problem Essential hypertension I10 Active 98507611 Problem 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 Active [id number] ALLERGIES Substance Reaction Event Type Date Status Topamax nausea Drug Allergy Nov, Active ENCOUNTERS Encounter Location Date Diagnosis [facility] [address] [facility] [id number] [address] Mar, Essential hypertension I10 [facility] [address] [address] Mar, [facility] [id number] [place] [address] 02559- 1435 Jan, Sebaceous cyst L72.3 [facility] [id number] [place] [address] 85394- 9557 Jan, [facility] [id number] [place] [address] 22711- 2770 Jan, [facility] [id number] [place] [address] 92042- 3901 Jan, Type 2 diabetes mellitus with other [...] anemia due to chronic blood loss D50.0 [place] [facility] [id number] [place] [address] 71902- 2765 Nov, Dental caries K02.9 [facility] [id number] [place] [address] [id number] Nov, Dental caries K02.9 [facility] [id number] [place] [address] 91274- 7610 Oct, HTN (hypertension) I10 [facility] [id number] [place] [address] 78692- 6983 Sep, Type 2 diabetes mellitus with other specified complication E11.69 [facility] [id number] [place] [address] 86615- 1711 Sep, [facility] [id number] [place] [address] 51262- 7238 Aug, HTN (hypertension) I10 ; Type 2 diabetes mellitus with other specified complication E11.69 ; Benign prostatic hyperplasia without lower urinary tract symptoms N40.0 and Other iron deficiency anemia D50.8 [facility] [address] [id number] Aug, [facility] [id number] [id number] Aug, [facility] [id number] [place] [address] [id number] Jul, Dental examination Z01.20 [place] [facility] [id number] [place] [address] 63900- 4284 Jul, Type 2 diabetes mellitus with other specified complication E11.69 [place] [id number] [place] [address] 22787- 4266 May, [facility] [id number] [place] [address] 85232- 7529 Apr, Type 2 diabetes mellitus with other specified complication E11.69 ; Proteinuria R80.9 ; HTN (hypertension) I10 ; Erectile dysfunction N52.9 ; Chronic obstructive pulmonary disease, unspecified COPD type J44.9 ; Chronic hepatitis C without hepatic coma B18.2 ; 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 ; Iron deficiency anemia due to chronic blood loss D50.0 and Hypercholesteremia E78.0 [place] [address], [place] [address] Mar, Diabetes mellitus E11.9 ; Hypercholesteremia E78.0 and Type 2 diabetes mellitus with other specified complication E11.69 [facility] [address], [place] [address] Mar, [facility] [id number] [place] [address] 37537- 0927 Mar, Iron deficiency anemia due to chronic blood loss D50.0 [facility] [address], [place] [address] Mar, Type 2 diabetes mellitus with other specified complication E11.69 and Iron deficiency anemia due to chronic blood loss D50.0 [place] [id number] [place] [address] 87106- 4693 07 Mar, 2017 Iron deficiency anemia due to chronic blood loss D50.0 [place] [id number] [place] [address] 72760- 0116 February, [facility] [id number] [place] [address] 11207- 5557 February, Iron deficiency anemia due to chronic blood loss D50.0 [place] [id number] [place] [address] 94016- 3527 February, [place] [id number] [place] [address] 28652- 9629 February, Anemia D64.9 [facility] [id number] [place] [address] 38760- 3587 February, Anemia D64.9 and 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 [place] [id number] [place] [address] 52576- 2339 Jan, Chest discomfort R07.89 ; Type 2 diabetes mellitus with other specified complication E11.69 ; HTN (hypertension) I10 ; Mixed hyperlipidemia E78.2 ; Dyspnea on exertion R06.09 and Tobacco use Z72.0 [place] [address], [place] [address] 39[address] Dec, [place] [facility] [id number] [place] [address] 36984- 9982 Dec, [place] [id number] [place] [address] 17482- 2328 Dec, Diabetes mellitus E11.9 ; HTN (hypertension) I10 ; Hypercholesteremia E78.0 ; Alcohol abuse F10.10 ; Proteinuria R80.9 ; Essential hypertension I10 ; Chronic hepatitis C with hepatic coma B18.2 ; Benign nodular prostatic hyperplasia with lower urinary tract symptoms N40.1 and Anemia D64.9 [place] [facility] [id number] [place] [address] 99412- 0236 Jul, Epididymitis N45.1 and Testicle swelling N50.89 [place] [facility] [address] 69285- 3328 Jul, Type 2 diabetes mellitus with other specified complication E11.69 ; Hypercholesteremia E78.0 ; Environmental allergies Z91.09 ; Erectile dysfunction N52.9 ; Alcohol abuse F10.10 ; Drug abuse and dependence F19.20 ; Epididymitis N45.1 ; Essential hypertension I10 and Chronic obstructive pulmonary disease, unspecified COPD type J44.9 [place] [address] 72158- 8674 Jul, [place] [address] 88050- 1482 Jul, Epididymitis, left N45.1 [place] [address] 98619- 0469 February, Diabetes mellitus E11.9 [place] [address] 17241- 4536 Jan, Dental examination Z01.20 and Dental caries K02.9 [place] [address] 27177- 2714 Jan, Type 2 diabetes mellitus with other specified complication E11.69 ; HTN (hypertension) I10 ; Hypercholesteremia E78.0 ; Alcohol abuse F10.10 ; Proteinuria R80.9 and Dental caries, unspecified K02.9 [place] [address] 87356- 6646 Dec, [place] [address] 42028- 1367 Dec, Sebaceous cyst L72.3 ; HTN (hypertension) I10 ; Hypercholesteremia E78.0 ; Proteinuria R80.9 and Anemia D64.9 [facility] [address] [place] [address] 53917- 1320 Dec, Anemia D64.9 [facility] [id number] [place] [address] 71621- 9086 Dec, Physical exam, pre-employment Z02.1 ; Drug abuse and dependence F19.20 ; UTI (urinary tract infection) N39.0 ; Proteinuria R80.9 ; Cellulitis L03.90 and Type 2 diabetes mellitus with other specified complication E11.69 [place] [id number] [place] [address] 80055- 6617 29 Nov, 2015 Type 2 diabetes mellitus with other specified complication E11.69 ; Hepatitis C 070.70 ; Proteinuria R80.9 ; Diabetes mellitus E11.9 ; HTN (hypertension) I10 ; Hypercholesteremia E78.0 ; Environmental allergies Z91.09 ; Erectile dysfunction N52.9 and Alcohol abuse F10.10 [place] [id number] [place] [address] 67625- 0359 Oct, [facility] [address] [id number] Sep, 2015 Encounter for dental examination Z01.20 ; Dental examination Z01.20 and Dental caries K02.9 [place] [id number] [place] [address] 68901- 0998 Aug, Tooth infection K04.7 [place] [id number] [place] [address] 27449- 7656 Aug, [place] [id number] [place] [address] 73596- 2929 Jul, [place] [address] 07269- 7281 Jun, Shoulder pain 719.41 [place] [id number] [place] [address] 42205- 4845 Jun, Hepatitis C 070.70 [place] [address] [place] [address] Jun, Essential hypertension, benign 401.1 ; Psychosexual dysfunction with inhibited sexual excitement 302.72 ; Proteinuria 791.0 ; Unspecified viral hepatitis C without hepatic coma 070.70 ; Diabetes mellitus without mention of complication, type II or unspecified type, uncontrolled 250.02 ; Joint pain 719.40 ; Hepatitis C 070.70 and Hypercholesterolemia 272.0 [facility] [address] 624236- 8808 Jun, [facility] [id number] [place] [address] 61280- 0506 Apr, [facility] [id number] [place] [address] 618569- 7640 Apr, [facility] [id number] [place] [address] 111689- 3469 Mar, [facility] [id number] [place] [address] 20458- 9541 Jan, [facility] [id number] [place] [address] 76340- 0654 Jan, [facility] [id number] [place] [address] 38130- 0577 Dec, [facility] [id number] [place] [address] 55027- 6672 Dec, [facility] [id number] [place] [address] [id number]- 4134 Dec, [facility] [id number] [place] [address] 773937- 8334 Dec, [facility] [id number] [place] [address] 761491- 3940 Jun, [facility] [id number] [place] [address] 400661- 5820 Jun, [facility] [id number] [place] [address] 67055- 2547 Jun, [facility] [place] [facility] [address] [id number] [place] [address]- 9854 Jun, [facility] [place] [facility] [address] [id number] [place] [address]- 6724 February, [facility] [place] [facility] [address] [id number] [place] [address]- 3806 February, [facility] [place] [facility] [address] [id number] [place] [address]- 3080 February, [facility] [place] [facility] [address] [id number] [place] [address]- 0010 February, [facility] [place] [facility] [address] [id number] [place] [address]- 1372 February, [facility] [place] [facility] [address] [id number] [place] [address]- 6232 Dec, [facility] [place] [facility] [address] [id number] [place] [address]- 5609 Dec, [facility] [place] [facility] [address] [id number] [place] [address]- 4350 Oct, [facility] [place] [facility] [address] [id number] [place] [address]- 6313 Oct, [facility] [place] [facility] [address] [id number], [place] [address]- 1027 Sep, [facility] [place] [facility] [address] [id number] [place] [address]- 2081 Sep, [facility] [place] [facility] [address] [id number] [place] [address]- 5408 Jul, [facility] [place] [facility] [address] [id number] [place] [address]- 6417 Jul, [facility] [place] [facility] [address] [id number] [place] [address]- 8242 Jul, [facility] [place] [facility] [address] [id number] [place] [address]- 9439 15 Jul, 2013 [facility] [address] [id number] [place] [address]- 8710 24 Jun, 2013 [facility] [address] [id number] [place] [address]- 4806 Jun, [facility] [address] [id number] [place] [address]- 7525 Apr, [facility] [address] [id number] [place] [address]- 6677 Apr, [facility] [address] [id number] [place] [address]- 2613 Mar, [facility] [address] [id number] [place] [address]- 0567 February, [facility] [address] [id number] [place] [address]- 0906 February, [facility] [address] [id number] [place] [address]- 1139 February, [facility] [address] [id number] [place] [address]- 3072 February, [facility] [address] [id number] [place] [address]- 9404 February, [facility] [address] [id number] [place] [address]- 4306 February, [facility] [address] [id number] [place] [address]- 2546 February, [facility] [address] [id number] [place] [address]- 5506 February, [facility] [address] [id number] [place] [address]- 2546 Dec, [facility] [address] [id number] [place] [address]- 8616 Nov, [facility] [address] [id number] [place] [address]- 6931 Nov, [facility] [place] [facility] [address] [id number] [place] [address]- 1021 Nov, [facility] [place] [facility] [address] [id number] [place] [address]- 0216 Oct, [facility] [place] [facility] [address] [id number] [place] [address]- 6291 Sep, [facility] [address] [id number] [place] [address]- 6727 Sep, [facility] [place] [facility] [address] [id number] [place] [address]- 0095 Sep, [facility] [place] [facility] [address] [id number] [place] [address]- 6907 Sep, [facility] [place] [facility] [address] [id number] [place] [address]- 3548 Sep, [facility] [place] [facility] [address] [id number] [place] [address]- 9300 Sep, [facility] [place] [facility] [address] [id number] [place] [address]- 7277 Sep, [facility] [place] [facility] [address] [id number] [place] [address]- 3052 Sep, [facility] [place] [facility] [address] [id number], [place] [address]- 2084 Sep, [facility] [place] [facility] [address] [id number] [place] [address]- 5513 Sep, [facility] [place] [facility] [address] [id number] [place] [address]- 7044 Sep, [facility] [place] [facility] [address] [id number] [place] [address]- 3856 Sep, [facility] [place] [facility] [address] [facility] [id number] [place] [address] Aug, IMMUNIZATIONS No Known Immunizations SOCIAL HISTORY Never Assessed REASON FOR VISIT TE PLAN OF CARE Activity Details Follow Up prn Reason:Refer VITAL SIGNS Blood pressure systolic 125 mmHg 2017-11-14 Blood pressure diastolic 91 mmHg 2017-11-14 MEDICATIONS Medication Instructions Dosage Frequency Start Date End Date Duration Status Actos 45 MG Orally Once a day 1 tablet 24h 30 days Active Diovan 40 mg Orally Once a day 1 tablet 24h 90 days Active Ferrous Sulfate 325 (65 Fe) MG Orally 3 times a day 1 tablet 8h 30 days Active Viagra 100 MG Orally Once a day 1 tablet as needed 24h Not-Taking Insulin Syringe/Needle 28G X 1/2 for use with Levemir 2 times a day 1 Syringe 12h Dec, 30 days Not-Taking Claritin 10 mg Orally Once a day 1 tablet 24h Not-Taking Proventil HFA 108 (90 Base) MCG/ACT Inhalation every 4 hrs 2 puffs as needed 4h Dec, Active Flomax 0.4 MG Orally Once a day 1 capsule 24h 30 Active Carafate 1 GM Orally 4 times a day 1 tablet 6h Active Pravastatin Sodium 20 mg Orally Once a day 1 tablet 24h 30 days Active Metformin HCl 1000 MG Orally Twice a day 1 tablet 12h 30 days Active Levemir 100 UNIT/ML Subcutaneous daily 100 units 24h 30 days Not- Taking RESULTS No Results PROCEDURES Procedure Date Ordered Result Body Site INTRAORL-PERIAPICAL 1 FILM [id number] Nov 14, 2017 EXTRAC ERUPTED TOOTH/EXPOSED ROOT Nov 14, 2017 INSTRUCTIONS MEDICATIONS ADMINISTERED No Known Medications [...] Def. Anemia, Chest pain, DM type 2-[facility] 2616 Hospitalization History Chest pain, illicit drug use-[facility] 03/21/2018
[2019-02-11 13:34] LABS: BILIRUBIN,URINE NEGATIVE (NEGATIVE); CLARITY,URINE CLEAR; COLOR,URINE YELLOW; GLUCOSE, URINE (UA) 4+ (NEGATIVE); KETONES,URINE NEGATIVE (NEGATIVE); LEUKOCYTE ESTERASE ,URINE 1+ (NEGATIVE); NITRITE,URINE NEGATIVE (NEGATIVE); PH,URINE 5 (5-9); PROTEIN,URINE NEGATIVE (NEGATIVE); UROBILINOGEN,URINE NORMAL (NORMAL)
[2019-02-11 13:41] LABS: BACTERIA,URINE FEW /HPF
[2019-02-11 13:52] LABS: AMPHETAMINE SCREEN, URINE NEGATIVE (NEGATIVE); BARBITURATE SCREEN URINE NEGATIVE (NEGATIVE); BENZODIAZEPINES SCREEN URINE NEGATIVE (NEGATIVE); CANNABINOID SCREEN, URINE NEGATIVE (NEGATIVE); COCAINE SCREEN URINE NEGATIVE (NEGATIVE); METHADONE STAT NEGATIVE (NEGATIVE); METHAMPHETAMINE SCREEN URINE S NEGATIVE (NEGATIVE); OPIATE SCREEN URINE NEGATIVE (NEGATIVE); OXYCODONE STAT NEGATIVE (NEGATIVE); PROPOXYPHENE STAT NEGATIVE (NEGATIVE); TRICYCLIC ANTIDEPRESSANTS SCRE NEGATIVE (NEGATIVE)
[2019-02-11 13:56] LABS: BASOPHILS % (AUTO) 0 % (0-10); EOSINOPHILS # (AUTO) 0.1 10^3/uL (0.0-0.3); EOSINOPHILS % (AUTO) 2 % (0-10); HEMATOCRIT 26 % (40-54); HEMOGLOBIN 7.5 G/DL (13.3-17.7); LYMPHOCYTES % (AUTO) 21 % (12-44); MEAN CORPUSCULAR HEMOGLOBIN 18 PG (25-34); MEAN CORPUSCULAR HGB CONC 29 G/DL (32-36); MEAN CORPUSCULAR VOLUME 64 FL (80-99); MONOCYTES # (AUTO) 0.5 X 10^3 (0.0-1.0); MONOCYTES % (AUTO) 11 % (0-12); NEUTROPHILS # (AUTO) 3.1 X 10^3 (1.8-7.8); NEUTROPHILS % (AUTO) 66 % (42-75); PLATELET COUNT 207 10^3/uL (130-400); RED CELL DISTRIBUTION WIDTH 19.1 % (10.0-14.5); WHITE BLOOD COUNT 4.8 10^3/uL (4.3-11.0)
[2019-02-11 14:14] LABS: ALBUMIN 3.8 GM/DL (3.2-4.5); BILIRUBIN,TOTAL 0.5 MG/DL (0.1-1.0); CREATININE SERUM 1.61 MG/DL (0.60-1.30); POTASSIUM 4.8 MMOL/L (3.6-5.0); TOTAL PROTEIN 7.8 GM/DL (6.4-8.2)
--- NOTE | 2019-02-11 14:40 | Diagnostic Imaging Report ---
INDICATION: Generalized weakness. Shortness of air. COMPARISON: 03/22/2018 FINDINGS: Single frontal view of the chest demonstrates normal heart size and pulmonary vascularity. The lungs are well aerated and clear. No large pleural effusion or pneumothorax is seen. The visualized osseous structures show no acute abnormalities. IMPRESSION: 1. No acute cardiopulmonary process. Dictated by: Dictated on workstation # [id number]
[2019-02-11] MEDS ORDERED: NS IV 1000 ML 1,000 ML IV SCH ×2 (14:45→17:45)
[2019-02-11] MEDS ORDERED: inSUlin (REGULAR) HUMAN 1 UNIT/0.01 ML (CHARGE PER UNIT) IV ONE ×2 (14:45→16:15)
--- NOTE | 2019-02-11 14:46 | NUR ---
LAB IN ROOM DRAWING BLOOD.
--- NOTE | 2019-02-11 15:05 | ED General ---
General Chief Complaint: Neurological Problems Stated Complaint: SLURRED SPEECH,SOA,WEAKNESS Nursing Triage Note: ARRIVED VIA AMB TO ROOM 05. COMPLAINS OF GENERALIZED WEAKNESS, SOA, TROUBLE SPEAKING (STATES HE IS TOO WEAK TO TALK) X1 WEAK. WORRIED BECAUSE THE LAST TIME HE WAS HERE HE TESTED POSITIVE FOR DRUGS AND HE DOES NOT DO DRUGS. Nursing Sepsis Screen: No Definite Risk Source of Information: Patient Exam Limitations: No Limitations History of Present Illness Date Seen by Provider: February 11, 2019 Time Seen by Provider: 13:16 Initial Comments 58-year-old male who presents to the emergency room with complaints of increasing generalized weakness and shortness of breath for the past week. He reports that he has had anemia in the past has caused him to have similar symptoms. He is also diabetic. Timing/Duration: 1 Week Associated Systoms: Weakness Allergies and Home Medications Allergies Coded Allergies: No Known Drug Allergies (Unverified , 04/10/17) Home Medications Albuterol Sulfate 6.7 Gm Hfa.aer.ad, 2 PUFF IH QID PRN for SHORTNESS OF BREATH, (Reported) Aspirin 81 Mg Tablet., 81 MG PO DAILY Prescribed by: APARNA DEWITT on 03/23/18 1417 Dicyclomine HCl 10 Mg Capsule, 10 MG PO Q6H PRN for ABDOMINAL PAIN Prescribed by: TY GILES on 03/11/17 2337 Ferrous Sulfate 325 Mg Tablet, 325 MG PO TID, (Reported) Insulin Determir 1,000 Units/10 Ml Soln, 100 UNITS SQ HS, (Reported) Lactobacillus Acidophilus 1 Each Capsule, 2 EACH PO QID Prescribed by: TY GILES on 03/11/17 2337 Loratadine 10 Mg Tablet, 10 MG PO DAILY PRN for ALLERGIES, (Reported) Metformin HCl 1,000 Mg Tablet, 1,000 MG PO BID, (Reported) Pantoprazole Sodium 40 Mg Tablet., 40 MG PO DAILY Take protonix 40 mg bid for two weeks and then once a week after that. Prescribed by: ROXY MURDOCK on 04/12/17 1544 Pioglitazone HCl 45 Mg Tablet, 45 MG PO DAILY, (Reported) Pravastatin Sodium 20 Mg Tablet, 20 MG PO HS, (Reported) Sildenafil Citrate 100 Mg Tablet, 100 MG PO UD PRN for ED, (Reported) Sucralfate 1 Gm Tablet, 1 GM PO QID Prescribed by: ROXY MURDOCK on 04/12/17 1544 Tamsulosin HCl 0.4 Mg Cap, 0.4 MG PO 1730, (Reported) Valsartan 40 Mg Tab, 40 MG PO DAILY, (Reported) [Vitamin C] , 1 TAB PO TID, (Reported) Patient Home Medication List Home Medication List Reviewed: Yes Review of Systems Review of Systems Constitutional: see HPI; No chills, No fever; malaise, weakness Respiratory: see HPI, short of breath Musculoskeletal: see HPI, muscle weakness Psychiatric/Neurological: See HPI, Weakness (generalized weakness) All Other Systems Reviewed Negative Unless Noted: Yes Past Wgfgkpp-Loxftc-Texhtk Hx Past Med/Social Hx: Reviewed Nursing Past Med/Soc Hx Patient Social History Alcohol Use: Denies Use Number of Drinks Today: AA Alcohol Beverage of Choice: Beer Recreational Drug Use: No Drug of Choice: HISTORY OF IV COCAINE AND METH, AND MARIJUANA Smoking Status: Current Everyday Smoker Type Used: Cigarettes 2nd Hand Smoke Exposure: Yes Recent Foreign Travel: No Contact w/Someone Who Travel: No Recent Infectious Disease Expo: No Recent Hopitalizations: Yes (03/09/17) Immunizations Up To Date Tetanus Booster (TDap): Unknown PED Vaccines UTD: No Date of Pneumonia Vaccine: February 19, 2007 Seasonal Allergies Seasonal Allergies: Yes Past Medical History Surgeries: Yes Abdominal, Orthopedic Respiratory: Yes (sleep apnea, used to use cpap) Sleep Apnea Currently Using CPAP: No (QUIT USING IT YEARS AGO) Currently Using BIPAP: No Cardiac: Yes Coronary Artery Disease, Heart Attack, High Cholesterol, Hypertension Neurological: Yes (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) Neuropathy Reproductive Disorders: No Sexually Transmitted Disease: No HIV/AIDS: No Genitourinary: Yes Renal Failure Gastrointestinal: Yes (HEPATITIS C--NO TREATMENT) Colitis, Gastroesophageal Reflux, Liver Disease/Jaundice, Hepatitis, Polyps, Hiatal Hernia Musculoskeletal: Yes Arthritis Endocrine: Yes (MORBID OBESITY; TAKES INSULIN + PILLS, BUT IS NON-COMPLAINT IN ALL ASPECTS ) Diabetes, Insulin dep HEENT: No Loss of Vision: Bilateral Hearing Impairment: Denies Cancer: No Psychosocial: No Integumentary: No Blood Disorders: Yes (ANEMIA) Adverse Reaction/Blood Tranf: No (HAS HAD BLOOD WITH NO REACTION) Family Medical History Reviewed Nursing Family Hx Asthma 19 MOTHER Cataracts 19 FATHER Diabetes mellitus Hypertension 19 FATHER 19 MOTHER Diabetes, Hypertension Physical Exam Vital Signs Vital Signs - First Documented 02/11/19 12:47 Temp 98.0 Pulse 107 Resp 16 B/P (MAP) 158/95 (116) Pulse Ox 98 O2 Delivery Room Air Capillary Refill : Less Than 3 Seconds Height, Weight, BMI Height: 5'8.00" Weight: 200lbs. 7.0oz. [id number]; 33.7 BMI Method:Estimated General Appearance: No Apparent Distress, WD/WN Eyes: Bilateral Eye Normal Inspection, Bilateral Eye PERRL, Bilateral Eye EOMI , Bilateral Eye Conjunctivae Pale HEENT: PERRL/EOMI, TMs Normal, Normal ENT Inspection, Pharynx Normal Respiratory: Chest Non Tender, Lungs Clear, Normal Breath Sounds, No Accessory Muscle Use, No Respiratory Distress Cardiovascular: Regular Rate, Rhythm, No Edema, No Gallop, No JVD, No Murmur, Normal Peripheral Pulses Gastrointestinal: Normal Bowel Sounds, No Organomegaly, No Pulsatile Mass, Non Tender, Soft Rectal: Normal Exam, Normal Rectal Tone, Heme Negative Stool Extremity: Normal Capillary Refill, No Pedal Edema Neurologic/Psychiatric: Alert, Oriented x3, Normal Mood/Affect Skin: Normal Color, Warm/Dry Progress/Results/Core Measures Suspected Sepsis Recent Fever Within 48 Hours: No Infection Criteria Present: None New/Unexplained Altered Menta: No Sepsis Screen: No Definite Risk SIRS Temperature:98.0 Pulse: 107 Respiratory Rate: 16 Laboratory Tests 02/11/19 13:47: White Blood Count 4.8 Blood Pressure 158 /95 Mean: 116 Laboratory Tests 02/11/19 13:47: Creatinine 1.61H, Platelet Count 207, Total Bilirubin 0.5 Results/Orders Lab Results Laboratory Tests Test 02/11/19 13:29 02/11/19 13:47 02/11/19 15:15 02/11/19 16:01 Range/Units Urine Color YELLOW Urine Clarity CLEAR Urine pH 5 5-9 Urine Specific [place] 1.010 L 1.016-1.022 Urine Protein NEGATIVE NEGATIVE Urine Glucose (UA) 4+ H NEGATIVE Urine Ketones NEGATIVE NEGATIVE Urine Nitrite NEGATIVE NEGATIVE Urine Bilirubin NEGATIVE NEGATIVE Urine Urobilinogen NORMAL NORMAL MG/DL Urine Leukocyte Esterase 1+ H NEGATIVE Urine RBC (Auto) NEGATIVE NEGATIVE Urine RBC NONE /HPF Urine WBC 10-25 H /HPF Urine Crystals NONE /LPF Urine Bacteria FEW H /HPF Urine Casts NONE /LPF Urine Mucus NEGATIVE /LPF Urine Culture Indicated YES Urine Opiates Screen NEGATIVE NEGATIVE Urine Oxycodone Screen NEGATIVE NEGATIVE Urine Methadone Screen NEGATIVE NEGATIVE Urine Propoxyphene Screen NEGATIVE NEGATIVE Urine Barbiturates Screen NEGATIVE NEGATIVE Ur Tricyclic Antidepressants Screen NEGATIVE NEGATIVE Urine Phencyclidine Screen NEGATIVE NEGATIVE Urine Amphetamines Screen NEGATIVE NEGATIVE Urine Methamphetamines Screen NEGATIVE NEGATIVE Urine Benzodiazepines Screen NEGATIVE NEGATIVE Urine Cocaine Screen NEGATIVE NEGATIVE Urine Cannabinoids Screen NEGATIVE NEGATIVE White Blood Count 4.8 4.3-11.0 10^3/uL Red Blood Count 4.11 L 4.35-5.85 10^6/uL Hemoglobin 7.5 L 13.3-17.7 G/DL Hematocrit 26 L 40-54 % Mean Corpuscular Volume 64 L 80-99 FL Mean Corpuscular Hemoglobin 18 L 25-34 PG Mean Corpuscular Hemoglobin Concent 29 L 32-36 G/DL Red Cell Distribution Width 19.1 H 10.0-14.5 % Platelet Count 207 130-400 10^3/uL Mean Platelet Volume 10.0 7.4-10.4 FL Neutrophils (%) (Auto) 66 42-75 % Lymphocytes (%) (Auto) 21 12-44 % Monocytes (%) (Auto) 11 0-12 % Eosinophils (%) (Auto) 2 0-10 % Basophils (%) (Auto) 0 0-10 % Neutrophils # (Auto) 3.1 1.8-7.8 X 10^3 Lymphocytes # (Auto) 1.0 1.0-4.0 X 10^3 Monocytes # (Auto) 0.5 0.0-1.0 X 10^3 Eosinophils # (Auto) 0.1 0.0-0.3 10^3/uL Basophils # (Auto) 0.0 0.0-0.1 10^3/uL Sodium Level 124 *L 135-145 MMOL/L Potassium Level 4.8 3.6-5.0 MMOL/L Chloride Level 92 L 98-107 MMOL/L Carbon Dioxide Level 19 L 21-32 MMOL/L Anion Gap 13 5-14 MMOL/L Blood Urea Nitrogen 17 7-18 MG/DL Creatinine 1.61 H 0.60-1.30 MG/DL Estimat Glomerular Filtration Rate 44 BUN/Creatinine Ratio 11 Glucose Level 736 *H 70-105 MG/DL Calcium Level 9.0 8.5-10.1 MG/DL Corrected Calcium 9.2 8.5-10.1 MG/DL Total Bilirubin 0.5 0.1-1.0 MG/DL Aspartate Amino Transf (AST/SGOT) 37 H 5-34 U/L Alanine Aminotransferase (ALT/SGPT) 36 0-55 U/L Alkaline Phosphatase 132 40-136 U/L Total Protein 7.8 6.4-8.2 GM/DL Albumin 3.8 3.2-4.5 GM/DL Amylase Level 44 25-125 U/L Lipase 32 8-78 U/L Glucometer > 600 *H 578 *H 70-110 MG/DL Test 02/11/19 16:47 02/11/19 21:30 Range/Units Glucometer 383 H 480 *H 70-110 MG/DL My Orders Orders - SONIYA OKEEFE Comprehensive Metabolic Panel (02/11/19 13:16) Lipase (02/11/19 13:16) Amylase (02/11/19 13:16) Ua Culture If Indicated (02/11/19 13:16) Ed Iv/Invasive Line Start (02/11/19 13:16) Cbc With Automated Diff (02/11/19 13:16) Drug Screen Stat (Urine) (02/11/19 13:16) Ekg Tracing (02/11/19 13:16) Chest 1 View, Ap/Pa Only (02/11/19 13:16) Urine Culture (02/11/19 13:29) Ns Iv 1000 Ml (Sodium Chloride 0.9%) (02/11/19 14:45) Insulin (Regular) Human (Humulin R (Per (02/11/19 14:45) Type And Screen (02/11/19 14:33) Insulin (Regular) Human (Humulin R (Per (02/11/19 16:15) Medications Given in ED Current Medications Medications Dose Ordered Sig/Winter Route Start Time Stop Time Status Last Admin Dose Admin Insulin Human Regular 10 unit ONCE ONCE IV 02/11/19 14:45 02/11/19 14:46 DC 02/11/19 14:45 10 UNIT Vital Signs/I&O 02/11/19 02/11/19 02/11/19 02/11/19 12:47 17:25 17:47 17:51 Temp 98.0 98.1 98.1 Pulse 107 94 94 94 Resp 16 16 18 18 B/P (MAP) 158/95 (116) 100/67 (78) 143/73 (96) 143/73 Pulse Ox 98 99 100 100 O2 Delivery Room Air Room Air Room Air 02/11/19 02/11/19 18:00 19:29 Temp 98.6 Pulse 103 Resp 20 B/P (MAP) 126/72 (90) Pulse Ox 98 O2 Delivery Room Air Room Air Capillary Refill : Less Than 3 Seconds Blood Pressure Mean: 116 Progress Note : Time: 15:57 Progress Note I have seen and evaluated the patient. I've informed him of his laboratory findings and imaging studies. The case was discussed with Dr. Leon and she agrees to accept the patient to her services and does not want blood administration at this time. Patient agrees with plan of care. Diagnostic Imaging Diagonstic Imaging: Xray Plain Films/CT/US/NM/MRI: chest Comments [facility], [place] NAME: PRIETO MARRERO [facility] REC#: [id number] PT STATUS: REG ER : 1960 PHYSICIAN: SONIYA OKEEFE ADMIT DATE: 02/11/19/ER Draft Date of Exam:02/11/19 CHEST 1 VIEW, AP/PA ONLY INDICATION: Generalized weakness. Shortness of air. COMPARISON: 03/22/2018 FINDINGS: Single frontal view of the chest demonstrates normal heart size and pulmonary vascularity. The lungs are well aerated and clear. No large pleural effusion or pneumothorax is seen. The visualized osseous structures show no acute abnormalities. IMPRESSION: 1. No acute cardiopulmonary process. Dictated on workstation # [id number] Dict: 02/11/19 1430 Trans: 02/11/19 1440 LENCHO [id number] Interpreted by: ARUNA KAUR MD Electronically signed by: Reviewed: Reviewed by Me Departure Communication (Admissions) Time/Spoke to Admitting Phy: 15:57 Dr. Leon Impression Primary Impression: UTI (urinary tract infection) Additional Impressions: Anemia Hyperglycemia Disposition: HOME, SELF-CARE Condition: Stable/Unchanged Admissions Decision to Admit Reason: Admit from ER (General) Decision to Admit/Date: February 11, 2019 Time/Decision to Admit Time: 16:21 Departure-Patient Inst. Referrals: CHITO SANTOS MD (PCP/Family) Primary Care Physician SONIYA OKEEFE February 11, 2019 15:05
--- NOTE | 2019-02-11 15:16 | NUR ---
ATTEMPT TO TAKE BLOOD SUGAR ET MONITOR READS OUT OF REPORTABLE RANGE.
[2019-02-11] MEDS ORDERED: CATHETER FLUSH 10 ML SYR IV PRN (17:45)
[2019-02-11 17:47] VITALS: BP 143/73
--- NOTE | 2019-02-11 17:48 | NUR ---
PRIETO MARRERO admitted to room 409-1, with an admitting diagnosis of anemia, uti, hyperglycemia, on 02/11/19 from ER via wheelchair, accompanied by staff.PRIETO MARRERO introduced to surroundings, call light, bed controls, phone, TV, temperature control, lights, meal times, smoking policy, visitor policy, side rail policy, bathrooms and showers. Patient Rights given to patient in the handbook. PRIETO MARRERO verbalizes understanding that [facility] is not responsible for the loss or damage to any personal effects or valuables that are kept in the patients posession during their hospitalization. PRIETO MARRERO verbalizes understanding of Interdisciplinary Patient Education. Patient and/or family were informed about the Rapid Response Team and its purpose.
[2019-02-11 17:51] VITALS: BP 143/73
[2019-02-11] MEDS: cefTRIAXone 1,000 MG/SWFI 10 ML IV PUSH IV SCH ×2 (17:59)
[2019-02-11 19:29] VITALS: BP 126/72
--- NOTE | 2019-02-11 21:42 | NUR ---
Pt with a blood sugar of 480. Dr. Leon notified. Orders received to administer 20 units SQ Novolog et start pt on 40 units Levemir SQ HS.
[2019-02-11] MEDS: inSUlin ASPART (NovoLOG) 1 UNIT/0.01 ML (CHARGE PER UNIT) SC SCH (21:49)
[2019-02-11] MEDS ORDERED: inSUlin ASPART (NovoLOG) 1 UNIT/0.01 ML (CHARGE PER UNIT) SC ONE (22:00)
[2019-02-11] MEDS ORDERED: ACETAMINOPHEN 500 MG TAB (TYLENOL) ONE (22:47)
[2019-02-11] MEDS: ACETAMINOPHEN 500 MG TAB (TYLENOL) PO PRN (22:51)
[2019-02-12 00:37] VITALS: BP 115/69
[2019-02-12 04:00] VITALS: BP 124/71
[2019-02-12 04:24] LABS: BASOPHILS % (AUTO) 0 % (0-10); EOSINOPHILS # (AUTO) 0.1 10^3/uL (0.0-0.3); EOSINOPHILS % (AUTO) 3 % (0-10); HEMATOCRIT 25 % (40-54); LYMPHOCYTES # (AUTO) 1.4 X 10^3 (1.0-4.0); LYMPHOCYTES % (AUTO) 30 % (12-44); MEAN CORPUSCULAR HEMOGLOBIN 18 PG (25-34); MEAN CORPUSCULAR HGB CONC 28 G/DL (32-36); MEAN CORPUSCULAR VOLUME 64 FL (80-99); MEAN PLATELET VOLUME 9.2 FL (7.4-10.4); MONOCYTES # (AUTO) 0.5 X 10^3 (0.0-1.0); MONOCYTES % (AUTO) 12 % (0-12); NEUTROPHILS # (AUTO) 2.5 X 10^3 (1.8-7.8); NEUTROPHILS % (AUTO) 55 % (42-75); PLATELET COUNT 210 10^3/uL (130-400); RED CELL DISTRIBUTION WIDTH 19.3 % (10.0-14.5); WHITE BLOOD COUNT 4.6 10^3/uL (4.3-11.0)
[2019-02-12 04:43] LABS: ALANINE AMINOTRANSFERASE 34 U/L (0-55); ALBUMIN 3.4 GM/DL (3.2-4.5); ALKALINE PHOSPHATASE 83 U/L (40-136); BILIRUBIN,TOTAL 0.4 MG/DL (0.1-1.0); BUN/CREATININE RATIO 13; CALCIUM 8.7 MG/DL (8.5-10.1); CARBON DIOXIDE 22 MMOL/L (21-32); CHLORIDE 103 MMOL/L (98-107); GFR ESTIMATED > 60; GLUCOSE 167 MG/DL (70-105); POTASSIUM 3.8 MMOL/L (3.6-5.0); SODIUM 136 MMOL/L (135-145); TOTAL PROTEIN 7.1 GM/DL (6.4-8.2)
[2019-02-12] MEDS: inSUlin ASPART (NovoLOG) 1 UNIT/0.01 ML (CHARGE PER UNIT) SC SCH ×4 (06:57→20:19)
[2019-02-12 08:00] VITALS: BP 109/63
[2019-02-12] MEDS ORDERED: ASCO-262 PO (08:43)
[2019-02-12] MEDS ORDERED: LOSA50TA63 PO (08:43)
[2019-02-12] MEDS ORDERED: SUCR1TAB36 PO (08:43)
[2019-02-12] MEDS ORDERED: MULT1TAB69 PO (08:43)
--- NOTE | 2019-02-12 08:56 | NUR ---
SPOKE WITH THE PATIENT ABOUT HIS MEDICATIONS. HE WAS UNABLE TO TELL ME WHAT HE IS TAKING BUT STATES HE GETS IT ALL FROM [facility]. HE STATES HE GETS SOME FROM THE PHARMACY AND SOME FROM THE REPOSITORY. [facility] HAS NOT FILLED ANYTHING FOR HIM IN SOME TIME. WHEN I SPOKE WITH A NURSE AT THE CLINIC SHE STATES THE PATIENT HAS NOT BEEN SEEN SINCE JULY 2018 AND HE WOULD NOT HAVE BEEN GIVEN ANY MEDS SINCE THEN. SHE QUICKLY STATED HE RECEIVED LOSARTAN IN APRIL AND PROVENTIL IN JULY.... I HAD A LIST FAXED OVER FROM [facility] AND WENT OVER IT WITH THE PATIENT. HE STATES HE IS TAKING SOME OF THE MEDS ON THAT LIST HOWEVER HE ADMITS HE DOES NOT TAKE THEM REGULARLY. SINCE IT APPEARS IT HAS BEEN QUITE SOME TIME SINCE HE HAS RECEIVED ANY OF THOSE MEDS I REMOVED THEM FROM THE MED REC AT THIS TIME. THE LIST ON FILE AT THE CLINIC IS FOLLOWS. VIAGRA 100MG PRN (STATES HE HAS NOT FILLED THIS IN QUITE SOME TIME AND DOES NOT HAVE ANY) CLARITIN 10MG DAILY PRN LEVEMIR 100 UNITS DAILY (STATES HE DOES NOT NEED THIS USUALLY) VITAMIN C 500MG DAILY METFORMIN 1000MG BID FLOMAX 0.4MG DAILY PRAVASTATIN 20MG DAILY ACTOS 45MG DAILY CARAFATE 1GM QID (STATES HE IS NO LONGER TAKING THIS) IRON 325MG TID (STATES HE TAKES 2 BID) PROVENTIL HFA PRN (RECEIVED IN JULY) LOSARTAN 50MG DAILY (RECEIVED IN APRIL HOWEVER WHEN I ASKED HIM ABOUT THIS HE THOUGHT IT WAS CHANGED TO DIOVAN 80MG DAILY) HE ALSO STATES HE TAKES A MTV DAILY OTC.
[2019-02-12] MEDS ORDERED: RT-ALBUTEROL SULF 2.5 MG/3 ML PRE-MIX VIAL IH PRN (09:15)
--- NOTE | 2019-02-12 10:10 | History & Physicial (CHS) ---
HPI History of Present Illness: 58 yo male came to ER due to not feeling well. He has not been taking medications regularly for quite some time. He has a history of severe iron deficiency anemia requiring transfusions and iron infusions and had EGD/colo in 2017 which showed gastritis and polyps. He has not been taking his PPI. Pt reports general malaise for 2 weeks. Has been getting worse, so finally came to the hospital. Denies feeling like this before, except for 3 yrs ago, when his anemia was diagnosed. Denies any hemoptysis, hematuria, or hematochezia. Is chronic carrier of hep c, and never had treatment due to cost, compliance and followup. Source: patient Date seen by provider: February 12, 2019 Time Seen by Provider: 10:05 Attending Physician Jillian Leon MD [facility] [place] Consult Date of Admission February 11, 2019 at 15:55 Home Medications Home Medications Reviewed patient Home Medication Reconciliation performed by pharmacy medication reconciliations solar installation technician and/or nursing. Patients Allergies have been reviewed. Allergies Coded Allergies: No Known Drug Allergies (Unverified , 04/10/17) VLL-Jzrrhd-Geansy Hx Patient Social History Alcohol Use: Denies Use Recreational Drug Use: No Drug of Choice: HISTORY OF IV COCAINE AND METH, AND MARIJUANA Smoking Status: Current Everyday Smoker Type Used: Cigarettes 2nd Hand Smoke Exposure: Yes Recent Foreign Travel: No Contact w/other who traveled: No Recent Hopitalizations: Yes (03/09/17) Recent Infectious Disease Expo: No Immunizations Up To Date Tetanus Booster (TDap): Unknown Date of Pneumonia Vaccine: February 19, 2007 Past Medical History PMHx: DMII HTN HLD Chronic Hep C Iron deficiency anemia of unclear etiology PSurgHx: Right knee Right hip Family Medical History Significant Family History: Diabetes, Hypertension Family History: Asthma 19 MOTHER Cataracts 19 FATHER Diabetes mellitus Hypertension 19 FATHER 19 MOTHER Review of Systems (CHC) Constitutional: other Genitourinary: dysuria Other 20 lb weight loss in the last few months. Reports chills for year. Reports that vision is sometimes blurry. Denies chest pain. Denies abdominal pain. Denies bleeding. Reports paresthesias in hands and feet, but no sores. Reviewed Test Results Reviewed Test Results Lab Laboratory Tests Test 02/11/19 13:29 02/11/19 13:47 02/11/19 15:15 02/11/19 16:01 Range/Units Urine Color YELLOW Urine Clarity CLEAR Urine pH 5 5-9 Urine Specific [place] 1.010 L 1.016-1.022 Urine Protein NEGATIVE NEGATIVE Urine Glucose (UA) 4+ H NEGATIVE Urine Ketones NEGATIVE NEGATIVE Urine Nitrite NEGATIVE NEGATIVE Urine Bilirubin NEGATIVE NEGATIVE Urine Urobilinogen NORMAL NORMAL MG/DL Urine Leukocyte Esterase 1+ H NEGATIVE Urine RBC (Auto) NEGATIVE NEGATIVE Urine RBC NONE /HPF Urine WBC 10-25 H /HPF Urine Crystals NONE /LPF Urine Bacteria FEW H /HPF Urine Casts NONE /LPF Urine Mucus NEGATIVE /LPF Urine Culture Indicated YES Urine Opiates Screen NEGATIVE NEGATIVE Urine Oxycodone Screen NEGATIVE NEGATIVE Urine Methadone Screen NEGATIVE NEGATIVE Urine Propoxyphene Screen NEGATIVE NEGATIVE Urine Barbiturates Screen NEGATIVE NEGATIVE Ur Tricyclic Antidepressants Screen NEGATIVE NEGATIVE Urine Phencyclidine Screen NEGATIVE NEGATIVE Urine Amphetamines Screen NEGATIVE NEGATIVE Urine Methamphetamines Screen NEGATIVE NEGATIVE Urine Benzodiazepines Screen NEGATIVE NEGATIVE Urine Cocaine Screen NEGATIVE NEGATIVE Urine Cannabinoids Screen NEGATIVE NEGATIVE White Blood Count 4.8 4.3-11.0 10^3/uL Red Blood Count 4.11 L 4.35-5.85 10^6/uL Hemoglobin 7.5 L 13.3-17.7 G/DL Hematocrit 26 L 40-54 % Mean Corpuscular Volume 64 L 80-99 FL Mean Corpuscular Hemoglobin 18 L 25-34 PG Mean Corpuscular Hemoglobin Concent 29 L 32-36 G/DL Red Cell Distribution Width 19.1 H 10.0-14.5 % Platelet Count 207 130-400 10^3/uL Mean Platelet Volume 10.0 7.4-10.4 FL Neutrophils (%) (Auto) 66 42-75 % Lymphocytes (%) (Auto) 21 12-44 % Monocytes (%) (Auto) 11 0-12 % Eosinophils (%) (Auto) 2 0-10 % Basophils (%) (Auto) 0 0-10 % Neutrophils # (Auto) 3.1 1.8-7.8 X 10^3 Lymphocytes # (Auto) 1.0 1.0-4.0 X 10^3 Monocytes # (Auto) 0.5 0.0-1.0 X 10^3 Eosinophils # (Auto) 0.1 0.0-0.3 10^3/uL Basophils # (Auto) 0.0 0.0-0.1 10^3/uL Sodium Level 124 *L 135-145 MMOL/L Potassium Level 4.8 3.6-5.0 MMOL/L Chloride Level 92 L 98-107 MMOL/L Carbon Dioxide Level 19 L 21-32 MMOL/L Anion Gap 13 5-14 MMOL/L Blood Urea Nitrogen 17 7-18 MG/DL Creatinine 1.61 H 0.60-1.30 MG/DL Estimat Glomerular Filtration Rate 44 BUN/Creatinine Ratio 11 Glucose Level 736 *H 70-105 MG/DL Calcium Level 9.0 8.5-10.1 MG/DL Corrected Calcium 9.2 8.5-10.1 MG/DL Total Bilirubin 0.5 0.1-1.0 MG/DL Aspartate Amino Transf (AST/SGOT) 37 H 5-34 U/L Alanine Aminotransferase (ALT/SGPT) 36 0-55 U/L Alkaline Phosphatase 132 40-136 U/L Total Protein 7.8 6.4-8.2 GM/DL Albumin 3.8 3.2-4.5 GM/DL Amylase Level 44 25-125 U/L Lipase 32 8-78 U/L Glucometer > 600 *H 578 *H 70-110 MG/DL Test 02/11/19 16:47 02/11/19 21:30 02/11/19 23:42 02/12/19 04:05 Range/Units Glucometer 383 H 480 *H 282 H 70-110 MG/DL White Blood Count 4.6 4.3-11.0 10^3/uL Red Blood Count 3.88 L 4.35-5.85 10^6/uL Hemoglobin 7.0 L 13.3-17.7 G/DL Hematocrit 25 L 40-54 % Mean Corpuscular Volume 64 L 80-99 FL Mean Corpuscular Hemoglobin 18 L 25-34 PG Mean Corpuscular Hemoglobin Concent 28 L 32-36 G/DL Red Cell Distribution Width 19.3 H 10.0-14.5 % Platelet Count 210 130-400 10^3/uL Mean Platelet Volume 9.2 7.4-10.4 FL Neutrophils (%) (Auto) 55 42-75 % Lymphocytes (%) (Auto) 30 12-44 % Monocytes (%) (Auto) 12 0-12 % Eosinophils (%) (Auto) 3 0-10 % Basophils (%) (Auto) 0 0-10 % Neutrophils # (Auto) 2.5 1.8-7.8 X 10^3 Lymphocytes # (Auto) 1.4 1.0-4.0 X 10^3 Monocytes # (Auto) 0.5 0.0-1.0 X 10^3 Eosinophils # (Auto) 0.1 0.0-0.3 10^3/uL Basophils # (Auto) 0.0 0.0-0.1 10^3/uL Sodium Level 136 135-145 MMOL/L Potassium Level 3.8 3.6-5.0 MMOL/L Chloride Level 103 98-107 MMOL/L Carbon Dioxide Level 22 21-32 MMOL/L Anion Gap 11 5-14 MMOL/L Blood Urea Nitrogen 13 7-18 MG/DL Creatinine 1.00 0.60-1.30 MG/DL Estimat Glomerular Filtration Rate > 60 BUN/Creatinine Ratio 13 Glucose Level 167 H 70-105 MG/DL Calcium Level 8.7 8.5-10.1 MG/DL Corrected Calcium 9.2 8.5-10.1 MG/DL Total Bilirubin 0.4 0.1-1.0 MG/DL Aspartate Amino Transf (AST/SGOT) 30 5-34 U/L Alanine Aminotransferase (ALT/SGPT) 34 0-55 U/L Alkaline Phosphatase 83 40-136 U/L Total Protein 7.1 6.4-8.2 GM/DL Albumin 3.4 3.2-4.5 GM/DL Test 02/12/19 05:46 02/12/19 10:35 Range/Units Glucometer 239 H 429 *H 70-110 MG/DL Radiology CXR: no acute process Physical Exam-(CHC) Physical Exam Vital Signs VS - Last 72 Hours, by Label 02/11/19 02/11/19 02/11/19 02/11/19 12:47 17:25 17:47 17:51 Temp 98.0 98.1 98.1 Pulse 107 94 94 94 Resp 16 16 18 18 B/P (MAP) 158/95 (116) 100/67 (78) 143/73 (96) 143/73 Pulse Ox 98 99 100 100 O2 Delivery Room Air Room Air Room Air 02/11/19 02/11/19 02/11/19 02/12/19 18:00 19:29 20:00 00:37 Temp 98.6 98.8 Pulse 103 86 Resp 20 19 B/P (MAP) 126/72 (90) 115/69 (84) Pulse Ox 98 98 O2 Delivery Room Air Room Air Room Air Room Air 02/12/19 02/12/19 02/12/19 04:00 08:00 11:48 Temp 98.7 98.8 98.4 Pulse 84 89 94 Resp 18 18 18 B/P (MAP) 124/71 (88) 109/63 (78) 122/63 (82) Pulse Ox 97 98 99 O2 Delivery Room Air Room Air Room Air Capillary Refill : Less Than 3 Seconds General Appearance: no apparent distress Respiratory: lungs clear, normal breath sounds Cardiovascular: regular rate, rhythm, no murmur Gastrointestinal: normal bowel sounds, non tender, soft Extremities: no pedal edema Neurologic/Psychiatric: alert, normal mood/affect Skin: normal color, warm/dry, tattoos/piercings Assessment/Plan Assessment/Plan Admission Status: Observation (1) Anemia Status: Chronic Assessment & Plan: Work up in past consistent with iron deficiency, scope with gastritis and polyps (one tubular adenoma, remainder hyperplastic) in 2017. Has not been regularly taking home meds. Resume home PPI, iron, monitor hemoglobin, may need urgent repeat scopes if continues to drift down. Qualifiers: Qualified Codes: D50.0 - Iron deficiency anemia secondary to blood loss ( chronic) (2) UTI (urinary tract infection) Status: Acute Assessment & Plan: Culture pending. Ceftriaxone. (3) Abnormal CT scan, bladder Status: Chronic Assessment & Plan: Abnormal appearance of undetermined etiology on CT in 02/2017 , given his symptoms, weight loss and anemia, will repeat CT scan for follow-up. (4) Hyperglycemia Status: Acute Assessment & Plan: Has not been using his diabetes meds/insulin regularly. Resume levemir at 80 units per day, increase as needed, diabetic diet, sliding scale insulin (5) Hepatitis C Status: Chronic Qualifiers: (6) Type 2 diabetes mellitus with hyperglycemia, with long-term current use of insulin Status: Chronic (7) Hypertension Status: Chronic Assessment & Plan: Resume home meds that he was intended to be on if needed, currently BP normal. Qualifiers: Qualified Codes: I10 - Essential (primary) hypertension (8) Hyperlipidemia Status: Chronic (9) DVT prophylaxis Status: Acute Assessment & Plan: No pharmacologic currently due to marked anemia and possible GI bleeding. Clinical Quality Measures DVT/VTE Risk/Contraindication: Risk Factor Score Per Nursin RFS Level Per Nursing on Admit: 3=High JILLIAN LEON MD February 12, 2019 10:10
[2019-02-12] MEDS ORDERED: inSUlin ASPART (NovoLOG) 1 UNIT/0.01 ML (CHARGE PER UNIT) SC NR (10:45)
[2019-02-12] MEDS ORDERED: IOHEXOL 350 MG/ML 100 ML (OMNIPAQUE 350) VIAL IV ONE (11:00)
[2019-02-12] MEDS ORDERED: HOLD METFORMIN - RECEIVED CONTRAST 20 ML VIAL IV SCH (11:00)
[2019-02-12] MEDS ORDERED: CATHETER FLUSH 10 ML SYR IV PRN (11:00)
[2019-02-12 11:48] VITALS: BP 122/63
--- NOTE | 2019-02-12 12:27 | Diagnostic Imaging Report ---
PROCEDURE: CT abdomen and pelvis with contrast. TECHNIQUE: Multiple contiguous axial images were obtained through the abdomen and pelvis after administration of intravenous contrast. Auto Exposure Controls were utilized during the CT exam to meet ALARA standards for radiation dose reduction. INDICATION: Anemia, weakness. COMPARED: 03/11/2017 FINDINGS: There is abnormal soft tissue nodular thickening of the harmon of the urinary bladder, eccentric greater right with maximal thickness of a process 1.4 cm. Neoplastic infiltration could not be excluded. Indeterminate right inguinal lymph node with a diameter 1.3 cm medial to the left the common femoral vein. The left ilioinguinal junction lymph node measures 1.4 x 0.9 cm. No periaortic adenopathy. Is no mesenteric mass. The liver shows some nodularity of its contour raising the question of cirrhosis, so recanalized periumbilical vein extending into the left intrahepatic portal vein. Portal vein branches are opacified however directional flow cannot be ascertained at CT. Cirrhosis is suspected. The spleen is within the upper limits of normal for size, is nonfocal. The pancreas negative. The adrenals negative. Aorta calcifications without aneurysm or occlusion. The osseous structures appeared nonacute the lung base is unremarkable. IMPRESSION: Suspicious thickening of the urinary bladder wall eccentric to the right. Neoplastic infiltration could not be excluded. There is some borderline bilateral of pelvic lower ilioinguinal lymph nodes indeterminate, no suspicious bony lesion, no hydronephrosis, probable cirrhotic liver without liver mass or biliary dilatation, no ascites. Dictated by: Dictated on workstation # [id number]
[2019-02-12 15:55] VITALS: BP 113/68
[2019-02-12] MEDS: FERROUS SULF 325 MG (IRON) TAB PO SCH (17:56)
[2019-02-12] MEDS: cefTRIAXone 1,000 MG/SWFI 10 ML IV PUSH IV SCH ×2 (17:56)
[2019-02-12 19:09] VITALS: BP 132/76
[2019-02-13] VITALS (9 sets, daily range): BP systolic 116–130; BP diastolic 66–82
[2019-02-13] MEDS: inSUlin ASPART (NovoLOG) 1 UNIT/0.01 ML (CHARGE PER UNIT) SC SCH ×4 (05:43→21:31)
[2019-02-13] MEDS: PANTOPRAZOLE 40 MG (PROTONIX) TAB PO SCH (05:44)
[2019-02-13] MEDS: FERROUS SULF 325 MG (IRON) TAB PO SCH ×2 (05:44→18:22)
--- NOTE | 2019-02-13 05:57 | Progress Note (SOAP) ---
Subjective Subjective/Events-last exam Reports he is feeling pretty well. Review of Systems Date Seen by Provider: February 13, 2019 Time Seen by Provider: 05:57 Objective Exam Last Set of Vital Signs Vital Signs Date Time Temp Pulse Resp B/P (MAP) Pulse Ox O2 Delivery O2 Flow Rate FiO2 02/13/19 04:00 98.4 84 18 130/82 (98) 98 Room Air Capillary Refill : Less Than 3 Seconds I&O Intake and Output 02/13/19 00:00 Intake Total 4014 ml Output Total 720 ml Balance 3294 ml Intake Oral 4014 ml Output Urine Total 720 ml # Voids 9 # Bowel Movements 1 General: Alert, No Acute Distress Lungs: Clear to Auscultation Heart: Regular Rate, No Murmurs Abdomen: Normal Bowel Sounds, Soft Neuro: Normal Speech Psych/Mental Status: Mental Status NL Results/Procedures Lab Laboratory Tests 02/12/19 10:35: Glucometer 429*H 02/12/19 15:00: Glucometer 364H 02/12/19 19:28: Glucometer 364H 02/13/19 05:31: Glucometer 255H Microbiology 02/11/19 Urine Culture - Preliminary, Resulted Escherichia coli Radiology CXR: no acute process Assessment/Plan Assessment/Plan (1) Anemia Status: Chronic Assessment & Plan: Work up in past consistent with iron deficiency, scope with gastritis and polyps (one tubular adenoma, remainder hyperplastic) in 2016. Has not been regularly taking home meds. Resume home PPI, iron, monitor hemoglobin, may need urgent repeat scopes if continues to drift down. 02/13 Hgb 6.9, will transfuse one unit and follow. Qualifiers: Qualified Codes: D50.0 - Iron deficiency anemia secondary to blood loss ( chronic) (2) UTI (urinary tract infection) Status: Acute Assessment & Plan: Culture pending. Ceftriaxone. 02/13 e coli, sensitivity pending (3) Abnormal CT scan, bladder Status: Chronic Assessment & Plan: Abnormal appearance of undetermined etiology on CT in 02/2017 , given his symptoms, weight loss and anemia, will repeat CT scan for follow-up. 02/13 CT with abnormal thickening of right wall of bladder, discussed with patient , will need cystoscopy for further eval. (4) Hyperglycemia Status: Acute Assessment & Plan: Has not been using his diabetes meds/insulin regularly. Resume levemir at 80 units per day, increase as needed, diabetic diet, sliding scale insulin (5) Hepatitis C Status: Chronic Assessment & Plan: CT abdomen appearance consistent with cirrhosis. Discussed with patient, recommend seeing Dr. Longoria outpatient to discuss whether Hep C treatment is indicated. Qualifiers: (6) Type 2 diabetes mellitus with hyperglycemia, with long-term current use of insulin Status: Chronic (7) Hypertension Status: Chronic Assessment & Plan: Resume home meds that he was intended to be on if needed, currently BP normal. Qualifiers: Qualified Codes: I10 - Essential (primary) hypertension (8) Hyperlipidemia Status: Chronic (9) DVT prophylaxis Status: Acute Assessment & Plan: No pharmacologic currently due to marked anemia and possible GI bleeding. Clinical Quality Measures DVT/VTE Risk/Contraindication: Risk Factor Score Per Nursin RFS Level Per Nursing on Admit: 3=High JILLIAN LOVE MD February 13, 2019 05:57
[2019-02-13 06:12] LABS: MEAN PLATELET VOLUME 9.8 FL (7.4-10.4); RED CELL DISTRIBUTION WIDTH 19.3 % (10.0-14.5); WHITE BLOOD COUNT 4.9 10^3/uL (4.3-11.0)
[2019-02-13 06:23] LABS: HEMOGLOBIN 6.9 G/DL (13.3-17.7)
--- NOTE | 2019-02-13 06:28 | NUR ---
This RN notified Dr. Leon of critical hgb of 6.9. Orders received to type and cross, transfuse 1 unit of PRBC and repeat H & H 2 hours post transfusion.
[2019-02-13 06:33] LABS: ALANINE AMINOTRANSFERASE 32 U/L (0-55); ALBUMIN 3.4 GM/DL (3.2-4.5); ALKALINE PHOSPHATASE 92 U/L (40-136); BILIRUBIN,TOTAL 0.3 MG/DL (0.1-1.0); BUN/CREATININE RATIO 13; CALCIUM 8.7 MG/DL (8.5-10.1); CARBON DIOXIDE 21 MMOL/L (21-32); CHLORIDE 102 MMOL/L (98-107); CREATININE SERUM 1.03 MG/DL (0.60-1.30); GFR ESTIMATED > 60; GLUCOSE 236 MG/DL (70-105); POTASSIUM 4.3 MMOL/L (3.6-5.0); SODIUM 133 MMOL/L (135-145); TOTAL PROTEIN 6.9 GM/DL (6.4-8.2)
[2019-02-13] MEDS: ASCORBIC ACID (VIT C) 500 MG TABLET PO SCH (08:35)
[2019-02-13] MEDS ORDERED: NON-FORMULARY MEDICATION 1 EA EA (Ascorbate Calcium (Vitamin C) 500 MG) PO SCH (09:00)
[2019-02-13] MEDS ORDERED: NS IV 500 ML 500 ML ONE (10:16)
[2019-02-13 17:41] LABS: HEMOGLOBIN 8.1 G/DL (13.3-17.7)
[2019-02-13] MEDS: cefTRIAXone 1,000 MG/SWFI 10 ML IV PUSH IV SCH ×2 (18:22)
[2019-02-14 00:51] VITALS: BP 117/63
[2019-02-14 04:00] VITALS: BP 111/69
[2019-02-14 05:15] LABS: HEMOGLOBIN 7.4 G/DL (13.3-17.7); MEAN PLATELET VOLUME 9.1 FL (7.4-10.4); RED CELL DISTRIBUTION WIDTH 19.5 % (10.0-14.5); WHITE BLOOD COUNT 4.9 10^3/uL (4.3-11.0)
[2019-02-14 05:42] LABS: ALANINE AMINOTRANSFERASE 31 U/L (0-55); ALBUMIN 3.3 GM/DL (3.2-4.5); ALKALINE PHOSPHATASE 84 U/L (40-136); BILIRUBIN,TOTAL 0.3 MG/DL (0.1-1.0); BUN/CREATININE RATIO 13; CALCIUM 8.8 MG/DL (8.5-10.1); CARBON DIOXIDE 22 MMOL/L (21-32); CHLORIDE 106 MMOL/L (98-107); CREATININE SERUM 0.89 MG/DL (0.60-1.30); GFR ESTIMATED > 60; GLUCOSE 239 MG/DL (70-105); POTASSIUM 4.3 MMOL/L (3.6-5.0); SODIUM 136 MMOL/L (135-145); TOTAL PROTEIN 6.7 GM/DL (6.4-8.2)
[2019-02-14] MEDS: FERROUS SULF 325 MG (IRON) TAB PO SCH ×2 (06:38→17:04)
[2019-02-14] MEDS: inSUlin ASPART (NovoLOG) 1 UNIT/0.01 ML (CHARGE PER UNIT) SC SCH ×4 (06:38→21:47)
[2019-02-14] MEDS: PANTOPRAZOLE 40 MG (PROTONIX) TAB PO SCH (06:38)
[2019-02-14 08:00] VITALS: BP 123/70
[2019-02-14] MEDS: ASCORBIC ACID (VIT C) 500 MG TABLET PO SCH (08:19)
--- NOTE | 2019-02-14 08:28 | Progress Note (SOAP) ---
Subjective Subjective/Events-last exam Patient reports overall he is feeling a little bit better since he came in. He hasn't done a lot of walking yet. He does admit to some epigastric discomfort. No reports of any blood in his bowel movements and no dark tarry stools. Review of Systems Date Seen by Provider: February 14, 2019 Time Seen by Provider: 07:00 Objective Exam Last Set of Vital Signs Vital Signs Date Time Temp Pulse Resp B/P (MAP) Pulse Ox O2 Delivery O2 Flow Rate FiO2 02/14/19 08:00 97.8 90 18 123/70 (87) 99 Room Air Capillary Refill : Less Than 3 Seconds I&O Intake and Output 02/14/19 00:00 Intake Total 4262 ml Balance 4262 ml Intake Oral 4262 ml # Voids 15 General: No Acute Distress Lungs: Clear to Auscultation Heart: Regular Rate Abdomen: Soft, Other (Slight epigastric tenderness) Extremities: No Edema Results/Procedures Lab Laboratory Tests 02/13/19 09:34: Glucometer 351H 02/13/19 15:36: Glucometer 350H 02/13/19 17:38: Hemoglobin 8.1L, Hematocrit 29L 02/13/19 20:08: Glucometer 327H 02/14/19 04:52: White Blood Count 4.9, Red Blood Count 3.99L, Hemoglobin 7.4L, Hematocrit 26L, Mean Corpuscular Volume 66L, Mean Corpuscular Hemoglobin 19L, Mean Corpuscular Hemoglobin Concent 28L, Red Cell Distribution Width 19.5H, Platelet Count 211, Mean Platelet Volume 9.1, Sodium Level 136, Potassium Level 4.3, Chloride Level 106, Carbon Dioxide Level 22, Anion Gap 8, Blood Urea Nitrogen 12, Creatinine 0.89, Estimat Glomerular Filtration Rate > 60, BUN/Creatinine Ratio 13, Glucose Level 239H, Calcium Level 8.8, Corrected Calcium 9.4, Total Bilirubin 0.3, Aspartate Amino Transf (AST/SGOT) 27, Alanine Aminotransferase (ALT/SGPT) 31, Alkaline Phosphatase 84, Total Protein 6.7, Albumin 3.3 Microbiology 02/11/19 Urine Culture - Final, Complete Escherichia coli Radiology CXR: no acute process Assessment/Plan Assessment/Plan (1) Anemia Status: Chronic Assessment & Plan: Work up in past consistent with iron deficiency, scope with gastritis and polyps (one tubular adenoma, remainder hyperplastic) in 2016. Has not been regularly taking home meds. Resume home PPI, iron, monitor hemoglobin, may need urgent repeat scopes if continues to drift down. 02/13 Hgb 6.9, will transfuse one unit and follow. 02/14 following transfusion his hemoglobin did increase to 8.1 yesterday. This morning it is 7.4. -Case discussed with Dr. Hansen and will have him consult regarding possible EGD if necessary. Order CBC for the a.m. Qualifiers: Qualified Codes: D50.0 - Iron deficiency anemia secondary to blood loss ( chronic) (2) UTI (urinary tract infection) Status: Acute Assessment & Plan: Culture pending. Ceftriaxone. 02/13 e coli, sensitivity pending (3) Abnormal CT scan, bladder Status: Chronic Assessment & Plan: Abnormal appearance of undetermined etiology on CT in 02/2017 , given his symptoms, weight loss and anemia, will repeat CT scan for follow-up. 02/13 CT with abnormal thickening of right wall of bladder, discussed with patient , will need cystoscopy for further eval. 02/14 again patient was informed of the CT findings of the bladder. He will be arranged to see urology I suspect outpatient (4) Hyperglycemia Status: Acute Assessment & Plan: Has not been using his diabetes meds/insulin regularly. Resume levemir at 80 units per day, increase as needed, diabetic diet, sliding scale insulin (5) Hepatitis C Status: Chronic Assessment & Plan: CT abdomen appearance consistent with cirrhosis. Discussed with patient, recommend seeing Dr. Longoria outpatient to discuss whether Hep C treatment is indicated. Qualifiers: (6) Type 2 diabetes mellitus with hyperglycemia, with long-term current use of insulin Status: Chronic (7) Hypertension Status: Chronic Assessment & Plan: Resume home meds that he was intended to be on if needed, currently BP normal. Qualifiers: Qualified Codes: I10 - Essential (primary) hypertension (8) Hyperlipidemia Status: Chronic (9) DVT prophylaxis Status: Acute Assessment & Plan: No pharmacologic currently due to marked anemia and possible GI bleeding. Clinical Quality Measures DVT/VTE Risk/Contraindication: Risk Factor Score Per Nursin RFS Level Per Nursing on Admit: 3=High YULY PERALTA MD February 14, 2019 08:28
--- NOTE | 2019-02-14 10:58 | Consultation (Surgery) ---
History of Present Illness History of Present Illness Patient Consulted On(lazaro/time) 02/14/19 10:47 Date Seen by Provider: February 14, 2019 Time Seen by Provider: 10:48 History of Present Illness Consult requested by Dr. Waldrop for anemia Patient is a 58 year old male who presents with concerns for anemia. A few weeks ago he noticed that he was weaker, dyspneic, and would fatigue more easily while at work. He notes that this is similar to an episode of anemia that he had a few years ago. He denies having noticed any active bleeding with no hematemesis, gross hematuria, or hematochezia. He has noted relief with rest and an increase in symptoms with activity. He denies any nausea, vomiting, diarrhea, or abdominal pain. He report a history of polyps and a gastric ulcer as seen on previous EGD and Colonoscopy. CT scan on 02/12 demonstrated thickening of the bladder wall with no hydronephrosis, a probable cirrhotic liver with no mass, no biliary dilatation, and no ascites. Allergies and Home Medications Allergies Coded Allergies: No Known Drug Allergies (Unverified , 04/10/17) Home Medications Albuterol Sulfate 6.7 Gm Hfa.aer.ad, 2 PUFF IH QID PRN for SHORTNESS OF BREATH, (Reported) Ascorbate Calcium 500 Mg Tablet, 500 MG PO DAILY, (Reported) Ferrous Sulfate 325 Mg Tablet, 2 TAB PO BID, (Reported) Loratadine 10 Mg Tablet, 10 MG PO DAILY PRN for ALLERGIES, (Reported) Multivitamin 1 Each Tablet, 1 TAB PO DAILY, (Reported) Patient Home Medication List Home Medication List Reviewed: Yes Past Lwcinag-Jwwtni-Mvtumt Hx Patient Social History Alcohol Use: Denies Use Number of Drinks Today: AA Recreational Drug Use: No Drug of Choice: HISTORY OF IV COCAINE AND METH, AND MARIJUANA Smoking Status: Current Everyday Smoker Type Used: Cigarettes 2nd Hand Smoke Exposure: Yes Recent Foreign Travel: No Contact w/Someone Who Travel: No Recent Infectious Disease Expo: No Recent Hopitalizations: Yes (03/09/17) Immunizations Up To Date Tetanus Booster (TDap): Unknown PED Vaccines UTD: No Date of Pneumonia Vaccine: February 19, 2007 Seasonal Allergies Seasonal Allergies: Yes Surgeries History of Surgeries: Yes Surgeries: Abdominal, Orthopedic Respiratory History of Respiratory Disorde: Yes (sleep apnea, used to use cpap) Respiratory Disorders: Sleep Apnea Cardiovascular History of Cardiac Disorders: Yes Cardiac Disorders: Coronary Artery Disease, Heart Attack, High Cholesterol, Hypertension Neurological History of Neurological Disord: Yes (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) Neurological Disorders: Neuropathy Reproductive System Hx Reproductive Disorders: No Sexually Transmitted Disease: No HIV/AIDS: No Genitourinary History of Genitourinary Disor: Yes Genitourinary Disorders: Renal Failure Gastrointestinal History of Gastrointestinal Di: Yes (HEPATITIS C--NO TREATMENT) Gastrointestinal Disorders: Colitis, Gastroesophageal Reflux, Liver Disease/ Jaundice, Hepatitis, Polyps, Hiatal Hernia Musculoskeletal History of Musculoskeletal Dis: Yes Musculoskeletal Disorders: Arthritis Endocrine History of Endocrine Disorders: Yes (MORBID OBESITY; TAKES INSULIN + PILLS, BUT IS NON-COMPLIAINT ) Endocrine Disorders: Diabetes, Insulin dep HEENT History of HEENT Disorders: No Loss of Vision: Bilateral Hearing Impairment: Denies Cancer History of Cancer: No Psychosocial History of Psychiatric Problem: No Integumentary History of Skin or Integumenta: No Blood Transfusions History of Blood Disorders: Yes (ANEMIA) Adverse Reaction to a Blood Tr: No (HAS HAD BLOOD WITH NO REACTION) Reviewed Nursing Assessment Reviewed/Agree w Nursing PMH: Yes Family Medical History Significant Family History: Diabetes, Hypertension Family Medial History: Asthma 19 MOTHER Cataracts 19 FATHER Diabetes mellitus Hypertension 19 FATHER 19 MOTHER Review of Systems-General Constitutional: see HPI, weakness EENTM: no symptoms reported Respiratory: dyspnea on exertion Cardiovascular: no symptoms reported Gastrointestinal: no symptoms reported Genitourinary: no symptoms reported Musculoskeletal: no symptoms reported Skin: no symptoms reported Psychiatric/Neurological: No Symptoms Reported Physical Exam-General Problems Physical Exam Vital Signs Vital Signs - First Documented 02/11/19 12:47 Temp 98.0 Pulse 107 Resp 16 B/P (MAP) 158/95 (116) Pulse Ox 98 O2 Delivery Room Air Capillary Refill : Less Than 3 Seconds General Appearance: no apparent distress HEENT: PERRL/EOMI, normal ENT inspection Neck: non-tender, supple Respiratory: chest non-tender, lungs clear, no respiratory distress, no accessory muscle use Cardiovascular: regular rate, rhythm, no murmur Gastrointestinal: normal bowel sounds, non tender, soft Rectal: deferred Back: normal inspection Extremities: normal range of motion, non-tender Neurologic/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: 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 nml as tested, alert, normal mood/affect, oriented x 3 Skin: normal color, warm/dry Lymphatic: no adenopathy Data Review Labs Laboratory Tests 02/13/19 15:36: Glucometer 350H 02/13/19 17:38: Hemoglobin 8.1L, Hematocrit 29L 02/13/19 20:08: Glucometer 327H 02/14/19 04:52: Hemoglobin 7.4L, Hematocrit 26L, White Blood Count 4.9, Red Blood Count 3.99L, Mean Corpuscular Volume 66L, Mean Corpuscular Hemoglobin 19L, Mean Corpuscular Hemoglobin Concent 28L, Red Cell Distribution Width 19.5H, Platelet Count 211, Mean Platelet Volume 9.1, Sodium Level 136, Potassium Level 4.3, Chloride Level 106, Carbon Dioxide Level 22, Anion Gap 8, Blood Urea Nitrogen 12, Creatinine 0.89, Estimat Glomerular Filtration Rate > 60, BUN/Creatinine Ratio 13, Glucose Level 239H, Calcium Level 8.8, Corrected Calcium 9.4, Total Bilirubin 0.3, Aspartate Amino Transf (AST/SGOT) 27, Alanine Aminotransferase (ALT/SGPT) 31, Alkaline Phosphatase 84, Total Protein 6.7, Albumin 3.3 02/14/19 09:35: Glucometer 329H Microbiology 02/11/19 Urine Culture - Final, Complete Escherichia coli Assessment/Plan Assessment/Plan Admission Diagonsis Anemia Assessment/Plan Anemia UTI History of colon polyps History of gastric ulcer Type II Diabetes thickened bladder by ct Monitor hgb Prep for tomorrow Colonoscopy/EGD on Saturday cystoscopy to eval bladder, will need urology either inpatient or outpatient Clinical Quality Measures DVT/VTE Risk/Contraindication: Risk Factor Score Per Nursin RFS Level Per Nursing on Admit: 3=High ANABELL ORELLANA DO February 14, 2019 10:58
[2019-02-14 12:00] VITALS: BP 121/77
[2019-02-14] MEDS ORDERED: GOLYTELY POWDER 4000 ML BTL PO NR (12:00)
[2019-02-14 16:00] VITALS: BP 121/73
[2019-02-14] MEDS: cefTRIAXone 1,000 MG/SWFI 10 ML IV PUSH IV SCH ×2 (17:04)
[2019-02-14] MEDS: ACETAMINOPHEN 500 MG TAB (TYLENOL) PO PRN (19:41)
[2019-02-14 20:00] VITALS: BP 112/68
--- NOTE | 2019-02-14 22:09 | NUR ---
REFUSED IV SITE CHANGE Addendum: 02/14/19 at 2209 by MICHAEL BAUER RN Amended: Links added.
[2019-02-15 00:44] VITALS: BP 124/71
[2019-02-15] MEDS: PANTOPRAZOLE 40 MG (PROTONIX) TAB PO SCH (06:40)
[2019-02-15] MEDS: FERROUS SULF 325 MG (IRON) TAB PO SCH ×2 (06:40→17:37)
[2019-02-15] MEDS: inSUlin ASPART (NovoLOG) 1 UNIT/0.01 ML (CHARGE PER UNIT) SC SCH ×4 (06:40→21:27)
[2019-02-15 06:43] LABS: BASOPHILS % (AUTO) 0 % (0-10); EOSINOPHILS # (AUTO) 0.2 10^3/uL (0.0-0.3); EOSINOPHILS % (AUTO) 3 % (0-10); HEMATOCRIT 27 % (40-54); HEMOGLOBIN 7.5 G/DL (13.3-17.7); LYMPHOCYTES # (AUTO) 1.3 X 10^3 (1.0-4.0); LYMPHOCYTES % (AUTO) 27 % (12-44); MEAN CORPUSCULAR HGB CONC 28 G/DL (32-36); MEAN CORPUSCULAR VOLUME 67 FL (80-99); MEAN PLATELET VOLUME 9.6 FL (7.4-10.4); MONOCYTES # (AUTO) 0.5 X 10^3 (0.0-1.0); MONOCYTES % (AUTO) 10 % (0-12); NEUTROPHILS # (AUTO) 2.9 X 10^3 (1.8-7.8); NEUTROPHILS % (AUTO) 59 % (42-75); PLATELET COUNT 237 10^3/uL (130-400); RED CELL DISTRIBUTION WIDTH 20.9 % (10.0-14.5); WHITE BLOOD COUNT 4.9 10^3/uL (4.3-11.0)
[2019-02-15 06:45] LABS: MEAN CORPUSCULAR HEMOGLOBIN 18 PG (25-34)
[2019-02-15 07:53] VITALS: BP 117/64
--- NOTE | 2019-02-15 08:30 | Progress Note (SOAP) ---
Subjective Subjective/Events-last exam Patient currently preparing for colonoscopy and EGD planned for the a.m. of February 16, 2019. He does not voice any current concerns. Review of Systems Date Seen by Provider: February 15, 2019 Time Seen by Provider: 07:20 Objective Exam Last Set of Vital Signs Vital Signs Date Time Temp Pulse Resp B/P (MAP) Pulse Ox O2 Delivery O2 Flow Rate FiO2 02/15/19 07:53 98.8 91 18 117/64 (81) 99 Room Air Capillary Refill : Less Than 3 Seconds I&O Intake and Output 02/15/19 00:00 Intake Total 3570 ml Balance 3570 ml Intake Oral 3570 ml # Voids 13 # Bowel Movements 1 General: No Acute Distress Neck: Supple Lungs: Clear to Auscultation Heart: Regular Rate Abdomen: Soft Results/Procedures Lab Laboratory Tests 02/14/19 09:35: Glucometer 329H 02/14/19 14:34: Glucometer 274H 02/14/19 20:10: Glucometer 296H 02/15/19 05:40: White Blood Count 4.9, Red Blood Count 4.06L, Hemoglobin 7.5L, Hematocrit 27L, Mean Corpuscular Volume 67L, Mean Corpuscular Hemoglobin 18L, Mean Corpuscular Hemoglobin Concent 28L, Red Cell Distribution Width 20.9H, Platelet Count 237, Mean Platelet Volume 9.6, Neutrophils (%) (Auto) 59, Lymphocytes (%) (Auto) 27, Monocytes (%) (Auto) 10, Eosinophils (%) (Auto) 3, Basophils (%) (Auto) 0, Neutrophils # (Auto) 2.9, Lymphocytes # (Auto) 1.3, Monocytes # (Auto) 0.5, Eosinophils # (Auto) 0.2, Basophils # (Auto) 0.0 02/15/19 05:52: Glucometer 261H Microbiology 02/11/19 Urine Culture - Final, Complete Escherichia coli Radiology CXR: no acute process Assessment/Plan Assessment/Plan (1) Anemia Status: Chronic Assessment & Plan: Work up in past consistent with iron deficiency, scope with gastritis and polyps (one tubular adenoma, remainder hyperplastic) in 2017. Has not been regularly taking home meds. Resume home PPI, iron, monitor hemoglobin, may need urgent repeat scopes if continues to drift down. 02/13 Hgb 6.9, will transfuse one unit and follow. 02/14 following transfusion his hemoglobin did increase to 8.1 yesterday. This morning it is 7.4. -Case discussed with Dr. Hansen and will have him consult regarding possible EGD if necessary. Order CBC for the a.m. 02/15 -Patient is scheduled for EGD and colonoscopy for the morning of February 16, 2019. He is currently going through the prep. -His hemoglobin was stable at 7.5 this morning. He will have CBC in the morning before his procedure. Qualifiers: Qualified Codes: D50.0 - Iron deficiency anemia secondary to blood loss ( chronic) (2) UTI (urinary tract infection) Status: Acute Assessment & Plan: Culture pending. Ceftriaxone. 02/13 e coli, sensitivity pending 02/15 -He is currently on ceftriaxone. Will switched to by mouth upon discharge. (3) Abnormal CT scan, bladder Status: Chronic Assessment & Plan: Abnormal appearance of undetermined etiology on CT in 02/2017 , given his symptoms, weight loss and anemia, will repeat CT scan for follow-up. 02/13 CT with abnormal thickening of right wall of bladder, discussed with patient , will need cystoscopy for further eval. 02/14 again patient was informed of the CT findings of the bladder. He will be arranged to see urology I suspect outpatient (4) Hyperglycemia Status: Acute Assessment & Plan: Has not been using his diabetes meds/insulin regularly. Resume levemir at 80 units per day, increase as needed, diabetic diet, sliding scale insulin (5) Hepatitis C Status: Chronic Assessment & Plan: CT abdomen appearance consistent with cirrhosis. Discussed with patient, recommend seeing Dr. Longoria outpatient to discuss whether Hep C treatment is indicated. Qualifiers: (6) Type 2 diabetes mellitus with hyperglycemia, with long-term current use of insulin Status: Chronic (7) Hypertension Status: Chronic Assessment & Plan: Resume home meds that he was intended to be on if needed, currently BP normal. Qualifiers: Qualified Codes: I10 - Essential (primary) hypertension (8) Hyperlipidemia Status: Chronic (9) DVT prophylaxis Status: Acute Assessment & Plan: No pharmacologic currently due to marked anemia and possible GI bleeding. Clinical Quality Measures DVT/VTE Risk/Contraindication: Risk Factor Score Per Nursin RFS Level Per Nursing on Admit: 3=High YULY PERALTA MD February 15, 2019 08:30
[2019-02-15] MEDS: ASCORBIC ACID (VIT C) 500 MG TABLET PO SCH (08:33)
--- NOTE | 2019-02-15 14:56 | Progress Note ---
Subjective Date Seen by a Provider: February 15, 2019 Time Seen by a Provider: 14:52 Subjective/Events-last exam No acute events overnight. Patient reports that his fatigue is largely unchanged. He denies having any pain and denies having any other concerns. On clears and Prep today and planning egd/colonoscopy tomorrow. Denies n/v fever sweats chills shortness of breath or chest pain. Objective Exam Vital Signs Date Time Temp Pulse Resp B/P (MAP) Pulse Ox O2 Delivery O2 Flow Rate FiO2 02/15/19 08:00 Room Air 02/15/19 07:53 98.8 91 18 117/64 (81) 99 Room Air 02/15/19 00:44 98.4 86 20 124/71 (88) 98 Room Air 02/14/19 20:00 99.0 90 20 112/68 (83) 98 Room Air 02/14/19 20:00 Room Air 02/14/19 16:00 96.8 88 22 121/73 (89) 100 Room Air I & O 02/15/19 07:00 Intake Total 4470 ml Balance 4470 ml Capillary Refill : Less Than 3 Seconds General Appearance: No Apparent Distress, WD/WN HEENT: PERRL/EOMI, TMs Normal, Normal ENT Inspection, Pharynx Normal Neck: Full Range of Motion, Normal Inspection, Non Tender Respiratory: Chest Non Tender, Lungs Clear, Normal Breath Sounds, No Accessory Muscle Use, No Respiratory Distress Cardiovascular: Regular Rate, Rhythm, Normal Peripheral Pulses Gastrointestinal: normal bowel sounds, non tender, soft Extremity: Normal Inspection, Normal Range of Motion, Non Tender Neurologic/Psychiatric: Alert, Oriented x3, No Motor/Sensory Deficits, Normal Mood/Affect, 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 rubber 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 II-XII Norm as Tested Skin: Normal Color, Warm/Dry Lymphatic: No Adenopathy Results Lab Laboratory Tests 02/14/19 20:10: Glucometer 296H 02/15/19 05:40: White Blood Count 4.9, Red Blood Count 4.06L, Hemoglobin 7.5L, Hematocrit 27L, Mean Corpuscular Volume 67L, Mean Corpuscular Hemoglobin 18L, Mean Corpuscular Hemoglobin Concent 28L, Red Cell Distribution Width 20.9H, Platelet Count 237, Mean Platelet Volume 9.6, Neutrophils (%) (Auto) 59, Lymphocytes (%) (Auto) 27, Monocytes (%) (Auto) 10, Eosinophils (%) (Auto) 3, Basophils (%) (Auto) 0, Neutrophils # (Auto) 2.9, Lymphocytes # (Auto) 1.3, Monocytes # (Auto) 0.5, Eosinophils # (Auto) 0.2, Basophils # (Auto) 0.0 02/15/19 05:52: Glucometer 261H 02/15/19 10:39: Glucometer 303H Microbiology 02/11/19 Urine Culture - Final, Complete Escherichia coli Assessment/Plan Assessment/Plan Assessment/Plan Anemia UTI History of colon polyps History of gastric ulcer Type II Diabetes thickened bladder by ct Monitor hgb Bowel prep today Clear liquids today NPO at midnight Colonoscopy/EGD on Saturday cystoscopy to eval bladder, will need urology either inpatient or outpatient Clinical Quality Measures DVT/VTE Risk/Contraindication: Risk Factor Score Per Nursin RFS Level Per Nursing on Admit: 3=High ANABELL ORELLANA DO February 15, 2019 14:56
[2019-02-15 16:00] VITALS: BP 125/65
[2019-02-15] MEDS: cefTRIAXone 1,000 MG/SWFI 10 ML IV PUSH IV SCH ×2 (17:37)
[2019-02-16 00:15] VITALS: BP 127/85
[2019-02-16] MEDS: inSUlin ASPART (NovoLOG) 1 UNIT/0.01 ML (CHARGE PER UNIT) SC SCH ×4 (06:24→21:20)
[2019-02-16] MEDS ORDERED: HURRICAINE EXT TUBE (BENZOCAINE) ONE (07:30)
[2019-02-16] MEDS ORDERED: LACTATED RINGERS 1,000 ML IV ONE ×2 (07:30→08:30)
[2019-02-16] MEDS ORDERED: PROPOFOL INJECTION 50 ML IV ONE (07:36)
[2019-02-16] MEDS ORDERED: MIDAZOLAM 2 MG/2 ML (VERSED) VIAL ONE (07:36)
--- NOTE | 2019-02-16 07:46 | Progress Note ---
Subjective Date Seen by a Provider: February 16, 2019 Time Seen by a Provider: 07:43 Subjective/Events-last exam Patient prepped yesterday no changes. Objective Exam Vital Signs Date Time Temp Pulse Resp B/P (MAP) Pulse Ox O2 Delivery O2 Flow Rate FiO2 02/16/19 00:15 98.9 81 18 127/85 (99) 98 Room Air 02/15/19 22:56 99 Room Air 02/15/19 20:15 98 Room Air 02/15/19 16:00 98.7 81 18 125/65 (85) 99 Room Air 02/15/19 08:00 Room Air 02/15/19 07:53 98.8 91 18 117/64 (81) 99 Room Air I & O 02/16/19 07:00 Intake Total 4670 ml Balance 4670 ml Capillary Refill : Less Than 3 Seconds General Appearance: No Apparent Distress, WD/WN HEENT: PERRL/EOMI, TMs Normal, Normal ENT Inspection, Pharynx Normal Neck: Full Range of Motion, Normal Inspection, Non Tender Respiratory: Chest Non Tender, Lungs Clear, Normal Breath Sounds, No Accessory Muscle Use, No Respiratory Distress Cardiovascular: Regular Rate, Rhythm, Normal Peripheral Pulses Gastrointestinal: normal bowel sounds, non tender, soft Extremity: Normal Inspection, Normal Range of Motion, Non Tender Neurologic/Psychiatric: Alert, Oriented x3, No Motor/Sensory Deficits, Normal 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, 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 Norm as Tested Skin: Normal Color, Warm/Dry Lymphatic: No Adenopathy Results Lab Laboratory Tests 02/15/19 10:39: Glucometer 303H 02/15/19 15:10: Glucometer 248H 02/15/19 20:30: Glucometer 295H 02/16/19 06:19: Glucometer 115H Microbiology 02/11/19 Urine Culture - Final, Complete Escherichia coli Assessment/Plan Assessment/Plan Assessment/Plan Anemia UTI History of colon polyps History of gastric ulcer Type II Diabetes thickened bladder by ct NPO Colonoscopy/EGD today cystoscopy to eval bladder, will need urology either inpatient or outpatient Clinical Quality Measures DVT/VTE Risk/Contraindication: Risk Factor Score Per Nursin RFS Level Per Nursing on Admit: 3=High ANABELL ORELLANA DO February 16, 2019 07:46
[2019-02-16] MEDS ORDERED: HURRICAINE EXT TUBE (BENZOCAINE) XX ONE (08:30)
--- NOTE | 2019-02-16 08:36 | Progress Note-Post Operative ---
Post-Operative Progess Note Surgeon (s)/Compressed Gas Tester (s) Surgeon ANABELL ORELLANA DO Compressed Gas Tester: na Pre-Operative Diagnosis anemia Post-Operative Diagnosis av malformation stomach/colon small ulceration, diverticulosis Procedure & Operative Findings Date of Procedure 02/16/19 Procedure Performed/Findings egd c biopsies, colonoscopy Anesthesia Type per agency sales representative Estimated Blood Loss Estimated blood loss (mL): scant Specimens/Packing Specimens Removed body avm, antrum ANABELL ORELLANA DO February 16, 2019 08:36
[2019-02-16] MEDS ORDERED: ONDANSETRON 4 MG/2 ML (SDV) Z0FRAN ONE (08:57)
[2019-02-16] MEDS: FERROUS SULF 325 MG (IRON) TAB PO SCH ×3 (09:16→16:39)
[2019-02-16] MEDS: PANTOPRAZOLE 40 MG (PROTONIX) TAB PO SCH ×2 (09:16→09:29)
[2019-02-16] MEDS: ASCORBIC ACID (VIT C) 500 MG TABLET PO SCH ×2 (09:17→09:30)
[2019-02-16] MEDS: SUCRALFATE 1 GM (CARAFATE) TAB PO SCH ×3 (09:31→21:19)
--- NOTE | 2019-02-16 10:07 | Progress Note-Hospitalist ---
Subjective HPI/CC On Admission Date Seen by Provider: February 16, 2019 Time Seen by Provider: 09:00 Subjective/Events-last exam Pt had an uneventful night Denies any significant pain except for gas pain since he had the prep for the scopes Hgb remains low at 7.3 but repeat was improved since 1 unit of blood given while inpatient Overall pt is tolerating clear liquid diet Pt wants to go home soon but only when Dr. Hansen is done with his work up Dr. Pete actually saw him in consultation and placed his recommendations per patient CT scan noted bladder thickening. Maintained on Rocephin in meantime Glucose levels are high Review of Systems Gastrointestinal: Hematochezia Objective Exam Vital Signs Vital Signs Date Time Temp Pulse Resp B/P (MAP) Pulse Ox O2 Delivery O2 Flow Rate FiO2 02/16/19 19:50 99 Room Air 02/16/19 16:00 98.2 95 18 124/70 (88) 02/16/19 08:35 10 Capillary Refill : Less Than 3 Seconds General Appearance: No Apparent Distress, WD/WN HEENT: PERRL/EOMI, TMs Normal, Normal ENT Inspection, Pharynx Normal Neck: Full Range of Motion, Normal Inspection, Non Tender Respiratory: Chest Non Tender, Lungs Clear, Normal Breath Sounds, No Accessory Muscle Use, No Respiratory Distress Cardiovascular: Regular Rate, Rhythm, Normal Peripheral Pulses Gastrointestinal: Normal Bowel Sounds, No Organomegaly, No Pulsatile Mass, Non Tender, Soft Rectal: Normal Exam, Normal Rectal Tone, Heme Negative Stool Extremity: Normal Inspection, Normal Range of Motion, Non Tender Neurologic/Psychiatric: Alert, Oriented x3, No Motor/Sensory Deficits, Normal 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 Assessment/Plan Assessment and Plan Assess & Plan/Chief Complaint Assessment: GI bleed UTI with thickened bladder wall on CT scan Diabetes mellitus [id number] Transfusion of 1 unit of blood Plan: Endoscopy today Urology recommendations Rocepminen Diagnosis/Problems Diagnosis/Problems (1) Anemia Status: Chronic Qualifiers: Anemia type: iron deficiency Iron deficiency anemia type: chronic blood loss Qualified Codes: D50.0 - Iron deficiency anemia secondary to blood loss ( chronic) (2) Smoker Status: Chronic (3) Abnormal CT scan, bladder Status: Acute (4) Hepatitis C Status: Chronic Qualifiers: Viral hepatitis chronicity: chronic (5) Type 2 diabetes mellitus with hyperglycemia, with long-term current use of insulin Status: Chronic (6) Hypertension Status: Chronic Qualifiers: Hypertension type: essential hypertension Qualified Codes: I10 - Essential (primary) hypertension (7) Hyperlipidemia Status: Chronic Qualifiers: Hyperlipidemia type: mixed hyperlipidemia Qualified Codes: E78.2 - Mixed hyperlipidemia (8) Hyperglycemia Status: Acute (9) UTI (urinary tract infection) Status: Acute Qualifiers: Urinary tract infection type: acute cystitis Hematuria presence: with hematuria Qualified Codes: N30.01 - Acute cystitis with hematuria Clinical Quality Measures DVT/VTE Risk/Contraindication: Risk Factor Score Per Nursin RFS Level Per Nursing on Admit: 3=High JESUS ROJAS DO February 16, 2019 10:07
[2019-02-16 10:10] LABS: HEMOGLOBIN 8.1 G/DL (13.3-17.7); MEAN PLATELET VOLUME 8.9 FL (7.4-10.4); RED CELL DISTRIBUTION WIDTH 21.9 % (10.0-14.5)
--- NOTE | 2019-02-16 14:22 | OPERATIVE REPORT ---
DATE OF SERVICE: 02/16/2019 PREOPERATIVE DIAGNOSIS: Anemia. POSTOPERATIVE DIAGNOSES: AV malformation of stomach and colon, small ulceration in the stomach, and diverticulosis. PROCEDURE: Esophagogastroduodenoscopy with biopsies, colonoscopy. SURGEON: Anabell Hansen DO. ANESTHESIA: Per BIN TRIPPER OPERATOR. ESTIMATED BLOOD LOSS: Scant. COMPLICATIONS: None. SPECIMENS: Body, AVM in the antrum. INDICATIONS: The patient is a 58-year-old male, who was admitted with anemia. He understands risks and benefits of procedure and wished to proceed with procedure. Consent was signed on the chart. DESCRIPTION OF PROCEDURE: The patient was taken to the endoscopy suite, placed in the left lateral recumbent position. Timeout was performed. Scope was inserted in mouth, down the esophagus into stomach and into the duodenum without difficulty. There were no polyps, masses or ulcerations within the duodenum. erythematous changes present. Scope was slowly retracted back into the stomach and further insufflated. The stomach had a couple of small AVM appearing lesions. Hot biopsy was performed on one and there are also small ulceration present as well. Biopsy of the antrum was also obtained. Scope was retroflexed noting no other pathology. Scope was returned to its normal position, slowly withdrawn to the distal esophagus, which had normal appearance. No polyps, masses, ulcerations or erythematous changes. Scope was slowly retracted back until completely removed. Digital rectal exam was performed. There were no palpable polyps, masses or ulcerations. Scope was inserted in the rectum, advanced all the way to the cecum with minimal difficulty. Prep was poor requiring lots of irrigation and suction. Scope was then slowly retracted back and in the cecum. There are 2 small AVMs, no other pathology noted. Scope was then slowly retracted back. No polyps, mass or ulcerations within the ascending, transverse, descending and sigmoid colon throughout. There was a moderate amount of diverticulosis present. Once in the rectum, scope was inserted multiple times and retracted multiple times, noting no other pathology. The patient tolerated procedure well without complications, taken to recovery in stable condition. RECOMMENDATIONS: The patient will be started on Carafate 1 gram four times a day. Continue on Protonix. Continue to monitor hemoglobin. Job ID: [id number] DocumentID: [id number] Dictated Date: 02/16/2019 08:40:11 Social Media Executive Date: 02/16/2019 14:22:03 Dictated By: ANABELL HANSEN DO
[2019-02-16 16:00] VITALS: BP 124/70
[2019-02-16] MEDS: cefTRIAXone 1,000 MG/SWFI 10 ML IV PUSH IV SCH ×2 (16:39)
[2019-02-17 00:16] VITALS: BP 132/69
[2019-02-17 05:59] LABS: HEMOGLOBIN 7.5 G/DL (13.3-17.7); MEAN PLATELET VOLUME 9.3 FL (7.4-10.4); RED CELL DISTRIBUTION WIDTH 22.3 % (10.0-14.5); WHITE BLOOD COUNT 6.4 10^3/uL (4.3-11.0)
[2019-02-17] MEDS: FERROUS SULF 325 MG (IRON) TAB PO SCH (06:15)
[2019-02-17] MEDS: SUCRALFATE 1 GM (CARAFATE) TAB PO SCH ×2 (06:15→10:59)
[2019-02-17] MEDS: inSUlin ASPART (NovoLOG) 1 UNIT/0.01 ML (CHARGE PER UNIT) SC SCH ×2 (06:15→10:58)
[2019-02-17] MEDS: PANTOPRAZOLE 40 MG (PROTONIX) TAB PO SCH (06:15)
[2019-02-17 08:30] VITALS: BP 157/74
[2019-02-17] MEDS: ASCORBIC ACID (VIT C) 500 MG TABLET PO SCH (08:48)
[2019-02-17] MEDS ORDERED: INSU100V5 SQ (09:40)
[2019-02-17] MEDS ORDERED: SUCR1TAB PO (09:40)
[2019-02-17] MEDS ORDERED: PANT40TA3 PO (09:40)
--- NOTE | 2019-02-17 09:42 | Discharge Summary-Hospitalist ---
Diagnosis/Chief Complaint Date of Admission February 13, 2019 at 15:05 Date of Discharge Discharge Date: February 17, 2019 Discharge Diagnosis (1) Anemia Status: Chronic (2) Smoker Status: Chronic (3) Abnormal CT scan, bladder Status: Acute (4) Hepatitis C Status: Chronic (5) Type 2 diabetes mellitus with hyperglycemia, with long-term current use of insulin Status: Chronic (6) Hypertension Status: Chronic (7) Hyperlipidemia Status: Chronic (8) Hyperglycemia Status: Acute (9) UTI (urinary tract infection) Status: Acute Discharge Summary Discharge Physical Exam Allergies: Coded Allergies: No Known Drug Allergies (Unverified , 04/10/17) Vitals & I&Os Vital Signs Date Time Temp Pulse Resp B/P (MAP) Pulse Ox O2 Delivery O2 Flow Rate FiO2 02/17/19 14:40 02/17/19 08:30 98.3 76 20 98 Room Air 02/16/19 08:35 10 General Appearance: No Apparent Distress, WD/WN Respiratory: Chest Non Tender, Lungs Clear, Normal Breath Sounds, No Accessory Muscle Use, No Respiratory Distress Cardiovascular: Regular Rate, Rhythm, No Edema, No Gallop, No JVD, No Murmur, Normal Peripheral Pulses Neurologic/Psychiatric: Alert, Oriented x3, No Motor/Sensory Deficits, Normal Mood/Affect Hospital Course Was the Problem List Reviewed?: Yes Pt had an uneventful hospital course although it was lengthy. He was admitted for hemoccult positive stools, GI bleeding and severe anemia symptomatic requiring one unit of packed red blood cells transfusion. Bladder revealed thickened on CT scan so urology was consulted. Pt maintained on Rocephin broad spectrum antibiotics, and urine culture returned back to no growth to date. At time of discharge Dr. Hansen will evaluate treatment plan along with proton pump inhibitor and Carafate for the AV malformation noted in the stomach and the colon and likely the cause of the GI bleeding, and will have close follow up with [facility] at discharge. Smoking cessation counseled. Labs (last 24 hrs) Laboratory Tests 02/16/19 20:54: Glucometer 311H 02/17/19 05:20: White Blood Count 6.4, Red Blood Count 3.94L, Hemoglobin 7.5L, Hematocrit 27L, Mean Corpuscular Volume 69L, Mean Corpuscular Hemoglobin 19L, Mean Corpuscular Hemoglobin Concent 28L, Red Cell Distribution Width 22.3H, Platelet Count 227, Mean Platelet Volume 9.3 02/17/19 05:33: Glucometer 80 02/17/19 10:27: Glucometer 252H Microbiology 02/11/19 Urine Culture - Final, Complete Escherichia coli Patient resulted labs reviewed. Pending Labs Laboratory Tests 02/17/19 10:27: Glucometer 252 Discussion & Recommendations Discharge Planning: <30 minutes discharge planning Discharge Home Medications: Active Scripts Active Levemir (Insulin Determir) 1,000 Units/10 Ml Soln 40 Unit SQ BID Pantoprazole Sodium 40 Mg Tablet.dr 40 Mg PO DAILY@0700 Sucralfate 1 Gm Tablet 1 Gm PO ACHS Reported Multivitamins (Multivitamin) 1 Each Tablet 1 Tab PO DAILY Vitamin C (Ascorbate Calcium) 500 Mg Tablet 500 Mg PO DAILY Ferrous Sulfate 325 Mg Tablet 2 Tab PO BID Proventil Hfa (Albuterol Sulfate) 6.7 Gm Hfa.aer.ad 2 Puff IH QID PRN Claritin (Loratadine) 10 Mg Tablet 10 Mg PO DAILY PRN Instructions to patient/family Please see electronic discharge instructions given to patient. Clinical Quality Measures DVT/VTE Risk/Contraindication: Risk Factor Score Per Nursin RFS Level Per Nursing on Admit: 3=High Problem Qualifiers (1) Anemia: Anemia type: iron deficiency Iron deficiency anemia type: chronic blood loss Qualified Codes: D50.0 - Iron deficiency anemia secondary to blood loss ( chronic) (2) Hepatitis C: Viral hepatitis chronicity: chronic (3) Hypertension: Hypertension type: essential hypertension Qualified Codes: I10 - Essential ( primary) hypertension (4) Hyperlipidemia: Hyperlipidemia type: mixed hyperlipidemia Qualified Codes: E78.2 - Mixed hyperlipidemia (5) UTI (urinary tract infection): Urinary tract infection type: acute cystitis Hematuria presence: with hematuria Qualified Codes: N30.01 - Acute cystitis with hematuria JESUS ROJAS DO February 17, 2019 09:41
--- NOTE | 2019-02-17 11:47 | NUR ---
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 He states his health care provider is Herbert CALHOUN and that he obtains his medications with the [facility]. Pt is self-pay and encouraged to work with our Financial Services to assist him with possible medicaid and financial assistance. He agreed to obtain his medications at [facility] and they were contaced and agreed to fill his scripts and will work out financial arrangements with him. He was provided gas card assist as stated that his was running low on gas to get home.
--- NOTE | 2019-02-17 19:00 | Progress Note ---
Subjective Date Seen by a Provider: February 17, 2019 Time Seen by a Provider: 13:32 Subjective/Events-last exam Patient doing well. Wanting to go home. No new complaints. feeling better. Tolerating clears. Denies n/v fever sweats chills shortness of breath or chest pain. Objective Exam Vital Signs Date Time Temp Pulse Resp B/P (MAP) Pulse Ox O2 Delivery O2 Flow Rate FiO2 02/17/19 14:40 02/17/19 08:30 98.3 76 20 157/74 (101) 98 Room Air 02/17/19 08:15 Room Air 02/17/19 07:27 96 Room Air 02/17/19 00:16 99.3 94 18 132/69 (90) 98 Room Air 02/16/19 20:00 Room Air 02/16/19 19:50 99 Room Air I & O 02/17/19 07:00 Intake Total 5400 ml Balance 5400 ml Capillary Refill : Less Than 3 Seconds General Appearance: No Apparent Distress, WD/WN HEENT: PERRL/EOMI, TMs Normal, Normal ENT Inspection, Pharynx Normal Neck: Full Range of Motion, Normal Inspection, Non Tender Respiratory: Chest Non Tender, No Accessory Muscle Use, No Respiratory Distress Cardiovascular: Regular Rate, Rhythm, Normal Peripheral Pulses Gastrointestinal: normal bowel sounds, non tender, soft Extremity: Normal Inspection, Normal Range of Motion, Non Tender Neurologic/Psychiatric: Alert, Oriented x3, No Motor/Sensory Deficits, Normal Mood/Affect Skin: Normal Color, Warm/Dry Lymphatic: No Adenopathy Results Lab Laboratory Tests 02/16/19 20:54: Glucometer 311H 02/17/19 05:20: White Blood Count 6.4, Red Blood Count 3.94L, Hemoglobin 7.5L, Hematocrit 27L, Mean Corpuscular Volume 69L, Mean Corpuscular Hemoglobin 19L, Mean Corpuscular Hemoglobin Concent 28L, Red Cell Distribution Width 22.3H, Platelet Count 227, Mean Platelet Volume 9.3 02/17/19 05:33: Glucometer 80 02/17/19 10:27: Glucometer 252H Microbiology 02/11/19 Urine Culture - Final, Complete Escherichia coli Assessment/Plan Assessment/Plan Assessment/Plan Anemia UTI History of colon polyps History of gastric ulcer Type II Diabetes thickened bladder by ct av malformations of stomach and colon S/p egd colonoscopy no active bleeding Clear liquids advance as tolerates cystoscopy to eval bladder, will need urology either inpatient or outpatient Clinical Quality Measures DVT/VTE Risk/Contraindication: Risk Factor Score Per Nursin RFS Level Per Nursing on Admit: 3=High ANABELL ORELLANA DO February 17, 2019 19:00
== END 2019-02-17 14:40 | disposition home or self-care (01) | DRG 378 ==
LOC: EDUNIT# 12:47 → ER 12:48 → 4TH 15:55 → UNDOADMOB 15:55 → 4TH 17:35 → OBSVTOIN 02-13 15:05
PROVIDERS: ADMIT Family Medicine; ATTEND Family Medicine
PROC: 0DJD8ZZ Inspection of Lower Intestinal Tract, Via Natural or Artificial Opening Endoscopic (ICD-10-PCS; 2019-02-16)
PROC: 0DB78ZX Excision of Stomach, Pylorus, Via Natural or Artificial Opening Endoscopic, Diagnostic (ICD-10-PCS; principal; 2019-02-16 07:30)
PROC: 0DB68ZX Excision of Stomach, Via Natural or Artificial Opening Endoscopic, Diagnostic (ICD-10-PCS; 2019-02-16 07:30)
DX: K31.811 Angiodysplasia of stomach and duodenum with bleeding (principal); K55.21 Angiodysplasia of colon with hemorrhage; D50.0 Iron deficiency anemia secondary to blood loss (chronic); K25.9 Gastric ulcer, unspecified as acute or chronic, without hemorrhage or perforation; K57.30 Diverticulosis of large intestine without perforation or abscess without bleeding; N39.0 Urinary tract infection, site not specified; B96.20 Unspecified Escherichia coli [E. coli] as the cause of diseases classified elsewhere; R93.41 Abnormal radiologic findings on diagnostic imaging of renal pelvis, ureter, or bladder; B18.2 Chronic viral hepatitis C; K74.60 Unspecified cirrhosis of liver; N19 Unspecified kidney failure; E11.65 Type 2 diabetes mellitus with hyperglycemia; E11.42 Type 2 diabetes mellitus with diabetic polyneuropathy; I25.10 Atherosclerotic heart disease of native coronary artery without angina pectoris; I25.2 Old myocardial infarction; E78.00 Pure hypercholesterolemia, unspecified; I10 Essential (primary) hypertension; F17.210 Nicotine dependence, cigarettes, uncomplicated; G47.30 Sleep apnea, unspecified; K21.9 Gastro-esophageal reflux disease without esophagitis; E66.01 Morbid (severe) obesity due to excess calories; R63.4 Abnormal weight loss; J30.2 Other seasonal allergic rhinitis; K44.9 Diaphragmatic hernia without obstruction or gangrene; M19.91 Primary osteoarthritis, unspecified site; Z91.19 Patient's noncompliance with other medical treatment and regimen; Z79.4 Long term (current) use of insulin; Z86.010 Personal history of colon polyps; Z87.11 Personal history of peptic ulcer disease; Z68.38 Body mass index [BMI] 38.0-38.9, adult
CPT/HCPCS: 36415; 71045; 74177; 80053; 80306; 81000; 82150; 82962; 83690; 85014; 85018; 85025; 85027; 86850; 86900; 86901; 86920; 87088; 87186; 93005; 94760; G0378

== ENCOUNTER 2019-03-29 19:36 | Observation (INO) | payer SELFPAY ==
[~2019-03-29] VITALS: Ht 177.8 cm; Wt 93.6 kg
[~2019-03-29 19:36] MED LIST changes: +ASCO-262 PO; +LOSA50TA63 PO; +MULT1TAB69 PO; +PANT40TA3 PO; +SUCR1TAB PO
--- OUTSIDE RECORDS SUMMARY | 2019-03-29 19:44 | XMS REPORT ---
Author Author Migration, Doctor Organization [facility] Address Unknown Phone Unavailable Care Team Providers Care Manager Data Center Name Role Phone Migration, Doctor Unavailable Unavailable PROBLEMS Type Condition ICD9-CM Code [id number] Code Onset Dates Condition Status SNOMED Code Problem Type 2 diabetes mellitus with other specified complication E11.69 Active [id number] Problem HTN (hypertension) I10 Active 37342991 Problem Drug abuse and dependence F19.20 Active 1483373 Problem Erectile dysfunction N52.9 Active 903566819 Problem Essential hypertension I10 Active 80455918 Problem Dental caries, unspecified K02.9 Active 45977014 Problem Epididymitis N45.1 Active 36740154 Problem Anemia D64.9 Active 584593806 Problem Chronic obstructive pulmonary disease, unspecified COPD type J44.9 Active 45953592 Problem Iron deficiency anemia due to chronic blood loss D50.0 Active 32585101 Problem Hypercholesteremia E78.0 Active 960367453 Problem Pure hypercholesterolemia, unspecified E78.00 Active 067478532 Problem Chronic fatigue R53.82 Active 79314080 Problem 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 Active 1448278924673 Problem Environmental allergies Z91.09 Active 910688590 Problem Other male erectile dysfunction N52.8 Active 108487912 Problem Mixed hyperlipidemia E78.2 Active 666770606 Problem Alcohol abuse F10.10 Active 45284032 Problem Proteinuria R80.9 Active 41220012 Problem Chronic hepatitis C without hepatic coma B18.2 Active 285218922 Problem Benign prostatic hyperplasia without lower urinary tract symptoms N40.0 Active 050178851 Problem Other iron deficiency anemia D50.8 Active 74417664 Problem Sexual dysfunction R37 Active 28545337 ALLERGIES No Information ENCOUNTERS Encounter Location Date Diagnosis [facility] [address] [facility] [id number] [address] February, [facility] [address] [id number], [place] [address] February, [facility] [id number] [place] [address] Jul, Chronic fatigue R53.82 and Acute non-recurrent maxillary sinusitis J01.00 [facility] [id number] [place] [address] Apr, Essential hypertension I10 [facility] [id number] [place] [address] Mar, Essential hypertension I10 [facility] [id number] [place] [address] Mar, [facility] [id number] [place] [address] Jan, Sebaceous cyst L72.3 [facility] [id number] [place] [address] Jan, [facility] [id number] [place] [address] Jan, [facility] [id number] [place] [address] Jan, Type 2 diabetes mellitus with other [...] anemia due to chronic blood loss D50.0 [facility] [id number] [place] [address] Nov, Dental caries K02.9 [facility] [id number] [place] [id number] Nov, Dental caries K02.9 [facility] [id number] [place] [address] Oct, HTN (hypertension) I10 [facility] [address], [place] [address] Sep, Type 2 diabetes mellitus with other specified complication E11.69 [facility] [address], [place] [address] Sep, [facility] [id number] [place] [address] Aug, HTN (hypertension) I10 ; Type 2 diabetes mellitus with other specified complication E11.69 ; Benign prostatic hyperplasia without lower urinary tract symptoms N40.0 and Other iron deficiency anemia D50.8 [facility] [id number] [place] [id number] Aug, [facility] [id number] [place] [id number] Aug, [facility] [id number] [place] [id number] Jul, Dental examination Z01.20 [facility] [id number] [place] [address] Jul, Type 2 diabetes mellitus with other specified complication E11.69 [facility] [id number] [place] [address] May, [facility] [address], [place] [address] Apr, Type 2 diabetes mellitus with other specified complication E11.69 ; Proteinuria R80.9 ; HTN (hypertension) I10 ; Erectile dysfunction N52.9 ; Chronic obstructive pulmonary disease, unspecified COPD type J44.9 ; Chronic hepatitis C without hepatic coma B18.2 ; 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 ; Iron deficiency anemia due to chronic blood loss D50.0 and Hypercholesteremia E78.0 [facility] [address], [place] [address] Mar, Diabetes mellitus E11.9 ; Hypercholesteremia E78.0 and Type 2 diabetes mellitus with other specified complication E11.69 [facility] [address], [place] [address] Mar, [facility] [id number] [place] [address] Mar, Iron deficiency anemia due to chronic blood loss D50.0 [facility] [id number] [place] [address] Mar, Type 2 diabetes mellitus with other specified complication E11.69 and Iron deficiency anemia due to chronic blood loss D50.0 [facility] [address] [place] [address] Mar, Iron deficiency anemia due to chronic blood loss D50.0 [facility] [id number] [place] [address] February, [facility] [id number] [place] [address] February, Iron deficiency anemia due to chronic blood loss D50.0 [facility] [address], [place] [address] February, [facility] [id number] [place] [address] February, Anemia D64.9 [facility] [address] [place] [address] February, Anemia D64.9 and 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 [facility] [address], [place] [address] Jan, Chest discomfort R07.89 ; Type 2 diabetes mellitus with other specified complication E11.69 ; HTN (hypertension) I10 ; Mixed hyperlipidemia E78.2 ; Dyspnea on exertion R06.09 and Tobacco use Z72.0 [facility] [address] [place] [address] Dec, [facility] [id number] [place] [address] Dec, [facility] [address] [address] 07 Dec, 2016 Diabetes mellitus E11.9 ; HTN (hypertension) I10 ; Hypercholesteremia E78.0 ; Alcohol abuse F10.10 ; Proteinuria R80.9 ; Essential hypertension I10 ; Chronic hepatitis C with hepatic coma B18.2 ; Benign nodular prostatic hyperplasia with lower urinary tract symptoms N40.1 and Anemia D64.9 [facility] [address] [address] Jul, Epididymitis N45.1 and Testicle swelling N50.89 [facility] [address] [address] 13 Jul, 2016 Type 2 diabetes mellitus with other specified complication E11.69 ; Hypercholesteremia E78.0 ; Environmental allergies Z91.09 ; Erectile dysfunction N52.9 ; Alcohol abuse F10.10 ; Drug abuse and dependence F19.20 ; Epididymitis N45.1 ; Essential hypertension I10 and Chronic obstructive pulmonary disease, unspecified COPD type J44.9 [facility] [id number] [place] [address] Jul, [facility] [id number] [place] [address] Jul, Epididymitis, left N45.1 [facility] [id number] [place] [address] February, Diabetes mellitus E11.9 [facility] [address] [address] Jan, Dental examination Z01.20 and Dental caries K02.9 [facility] [id number] [place] [address] 07 Jan, 2016 Type 2 diabetes mellitus with other specified complication E11.69 ; HTN (hypertension) I10 ; Hypercholesteremia E78.0 ; Alcohol abuse F10.10 ; Proteinuria R80.9 and Dental caries, unspecified K02.9 [facility] [address] [address] Dec, [facility] [address] [address] Dec, Sebaceous cyst L72.3 ; HTN (hypertension) I10 ; Hypercholesteremia E78.0 ; Proteinuria R80.9 and Anemia D64.9 [facility] [address] [address] Dec, Anemia D64.9 [facility] [address] [address] Dec, Physical exam, pre-employment Z02.1 ; Drug abuse and dependence F19.20 ; UTI (urinary tract infection) N39.0 ; Proteinuria R80.9 ; Cellulitis L03.90 and Type 2 diabetes mellitus with other specified complication E11.69 [facility] [id number] [place] [address] Nov, Type 2 diabetes mellitus with other specified complication E11.69 ; Hepatitis C 070.70 ; Proteinuria R80.9 ; Diabetes mellitus E11.9 ; HTN (hypertension) I10 ; Hypercholesteremia E78.0 ; Environmental allergies Z91.09 ; Erectile dysfunction N52.9 and Alcohol abuse F10.10 [facility] [id number] [place] [address] Oct, [facility] [id number] [place] [id number] Sep, Encounter for dental examination Z01.20 ; Dental examination Z01.20 and Dental caries K02.9 [facility] [address] [address] Aug, Tooth infection K04.[address] [address] Aug, [facility] [id number] [place] [address] Jul, [facility] [id number] [place] [address] Jun, Shoulder pain 719.41 [facility] [id number] [place] [address] Jun, Hepatitis C 070.70 [facility] [id number] [place] [address] Jun, Essential hypertension, benign 401.1 ; Psychosexual dysfunction with inhibited sexual excitement 302.72 ; Proteinuria 791.0 ; Unspecified viral hepatitis C without hepatic coma 070.70 ; Diabetes mellitus without mention of complication, type II or unspecified type, uncontrolled 250.02 ; Joint pain 719.40 ; Hepatitis C 070.70 and Hypercholesterolemia 272.0 [facility] [id number] [place] [address] Jun, [facility] [id number] [place] [address] Apr, [facility] [id number] [place] [address] Apr, [facility] [id number] [place] [address] Mar, [facility] [id number] [place] [address] 14 Jan, 2015 [facility] [id number] [place] [address] Jan, [facility] [address] [address] Dec, [facility] [id number] [place] [address] Dec, [facility] [id number] [place] [address] Dec, [facility] [place] [facility] [address] [id number] [place] [address] Dec, [facility] [place] [facility] [address] [id number] [place] [address] Jun, [facility] [place] [facility] [address] [id number] [place] [address] Jun, [facility] [place] [facility] [address] [id number] [place] [address] Jun, [facility] [place] [facility] [address] [id number] [place] [address] Jun, [facility] [place] [facility] [address] [id number] [place] [address] February, [facility] [place] [facility] [address] [id number] [place] [address] February, [facility] [place] [facility] [address] [id number] [place] [address] February, [facility] [place] [facility] [address] [id number] [place] [address] February, [facility] [place] [facility] [address] [id number] [place] [address] February, [facility] [place] [facility] [address] [id number] [place] [address] Dec, [facility] [place] [facility] [address] [id number] [place] [address] Dec, [facility] [place] [facility] [address] [id number] [place] [address] Oct, [facility] [place] [facility] [address] [id number] [place] [address] Oct, [facility] [place] [facility] [address] [id number] [place] [address] Sep, [facility] [place] [facility] [address] [id number] [place] [address] Sep, [facility] [address] [id number] [place] [address] Jul, [facility] [address] [id number] [place] [address] Jul, [facility] [address] [id number] [place] [address] Jul, [facility] [address] [id number] [place] [address] Jul, [facility] [address] [id number] [place] [address] Jun, [facility] [address] [id number] [place] [address] Jun, [facility] [address] [id number] [place] [address] Apr, [facility] [address] [id number] [place] [address] Apr, [facility] [address] [id number] [place] [address] Mar, [facility] [address] [id number] [place] [address] February, [facility] [address] [id number] [place] [address] February, [facility] [address] [id number], [place] [address] February, [facility] [address] [id number] [place] [address] February, [facility] [address] [id number] [place] [address] February, [facility] [address] [id number], [place] [address] February, [facility] [address] [id number] [place] [address] February, [facility] [address] [id number] [place] [address] February, [facility] [place] [facility] [address] [id number] [place] [address] Dec, [facility] [place] [facility] [address] [id number] [place] [address] Nov, [facility] [place] [facility] [address] [id number] [place] [address] Nov, [facility] [place] [facility] [address] [id number] [place] [address] Nov, [facility] [address] [id number] [place] [address] Oct, [facility] [address] [id number] [place] [address] Sep, [facility] [place] [facility] [address] [id number] [place] [address] Sep, [facility] [address] [id number] [place] [address] Sep, [facility] [place] [facility] [address] [id number] [place] [address] Sep, [facility] [place] [facility] [address] [id number] [place] [address] Sep, [facility] [place] [facility] [address] [id number] [place] [address] Sep, [facility] [place] [facility] [address] [id number] [place] [address] Sep, [facility] [place] [facility] [address] [id number] [place] [address] Sep, [facility] [place] [facility] [address] [id number] [place] [address] Sep, [facility] [address] [facility] [id number] [place] [address] Sep, [facility] [address] [facility] [id number], [place] [address] Sep, [facility] [address] [facility] [id number], [place] [address] Sep, [facility] [address] [facility] [id number], [place] [address] Aug, IMMUNIZATIONS No Known Immunizations SOCIAL HISTORY Never Assessed REASON FOR VISIT EMR-[facility] [place] PLAN OF CARE VITAL SIGNS MEDICATIONS Unknown [...] Iron Def. Anemia, Chest pain, DM type 2-[facility] 02/2617 Hospitalization History Chest pain, illicit drug use-[facility] 03/21/2018
--- NOTE | 2019-03-29 19:58 | ED Respiratory ---
General Stated Complaint: SOB Source: patient Exam Limitations: no limitations History of Present Illness Date Seen by Provider: Mar 29, 2019 Time Seen by Provider: 19:42 Initial Comments Patient presents to ER by private conveyance with his significant other and chief complaint that he feels like his anemia has gotten worse because he is having increased black tarry stools and shortness of breath and weakness tiredness and then spending the last 4 days in bed. He said this started getting worse about the last week. He has a history of gastric ulcers and has had multiple EGDs and colonoscopies in the last [address] Hansen. He follows at [facility]. He did antibiotics and is still on Carafate and an antacid. He missed his last appointment couple weeks ago for follow-up with Dr. Hansen. Recently they discovered a bladder mass and he was sent outpatient to go follow- up with Dr. Pete, urology. He says at the time he did not have the money to make a follow-up appointment that he is applying for disability and has finished applying for Medicaid and should be able to make these appointments. 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 He's had to have lots of transfusions and follows with a oncologist at the cancer center here in [place] but he does not know her name. In the past he has also received iron transfusions for chronic anemia. He denies a history of chest pain, coronary disease, COPD or asthma. He still smokes about half pack cigarettes per day. He stopped drinking alcohol several years ago. He denies recreational drug use. Allergies and Home Medications Allergies Coded Allergies: No Known Drug Allergies (Unverified , 04/10/17) Home Medications Albuterol Sulfate 6.7 Gm Hfa.aer.ad, 2 PUFF IH QID PRN for SHORTNESS OF BREATH, (Reported) Ascorbate Calcium 500 Mg Tablet, 500 MG PO DAILY, (Reported) Ferrous Sulfate 325 Mg Tablet, 2 TAB PO BID, (Reported) Insulin Determir 1,000 Units/10 Ml Soln, 40 UNIT SQ BID Prescribed by: JESUS ROJAS on 02/17/19 0940 Loratadine 10 Mg Tablet, 10 MG PO DAILY PRN for ALLERGIES, (Reported) Multivitamin 1 Each Tablet, 1 TAB PO DAILY, (Reported) Pantoprazole Sodium 40 Mg Tablet., 40 MG PO DAILY@0700 Prescribed by: JESUS ROJAS on 02/17/19939 Sucralfate 1 Gm Tablet, 1 GM PO ACHS Prescribed by: JESUS ROJAS on 02/17/19939 Patient Home Medication List Home Medication List Reviewed: Yes Review of Systems Review of Systems Constitutional: No chills, No diaphoresis EENTM: No ear discharge, No ear pain Respiratory: No cough; short of breath; No wheezing Cardiovascular: No chest pain, No edema Gastrointestinal: No abdominal pain; melena; No nausea Genitourinary: No discharge, No dysuria Skin: No pruritus, No rash Past Tiiymbb-Zbzpro-Btiiyk Hx Patient Social History Alcohol Use: Past History Alcohol Beverage of Choice: Beer Recreational Drug Use: No Drug of Choice: HISTORY OF IV COCAINE AND METH, AND MARIJUANA Smoking Status: Current Everyday Smoker Type Used: Cigarettes (0.5 ppd) 2nd Hand Smoke Exposure: Yes Recent Foreign Travel: No Contact w/Someone Who Travel: No Recent Hopitalizations: Yes (03/09/17) Immunizations Up To Date Tetanus Booster (TDap): Unknown PED Vaccines UTD: No Date of Pneumonia Vaccine: February 19, 2007 Seasonal Allergies Seasonal Allergies: Yes Past Medical History Surgeries: Yes Abdominal, Orthopedic Respiratory: Yes (sleep apnea, used to use cpap) Sleep Apnea Currently Using CPAP: No (QUIT USING IT YEARS AGO) Currently Using BIPAP: No Cardiac: Yes Coronary Artery Disease, Heart Attack, High Cholesterol, Hypertension Neurological: Yes (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) Neuropathy Reproductive Disorders: No Sexually Transmitted Disease: No HIV/AIDS: No Genitourinary: Yes Renal Failure Gastrointestinal: Yes (HEPATITIS C--NO TREATMENT) Colitis, Gastroesophageal Reflux, Liver Disease/Jaundice, Hepatitis, Polyps, Hiatal Hernia Musculoskeletal: Yes Arthritis Endocrine: Yes (MORBID OBESITY; TAKES INSULIN + PILLS, BUT IS NON-COMPLIAINT ) Diabetes, Insulin dep HEENT: No Loss of Vision: Bilateral Hearing Impairment: Denies Cancer: No Psychosocial: No Integumentary: No Blood Disorders: Yes (ANEMIA) Adverse Reaction/Blood Tranf: No (HAS HAD BLOOD WITH NO REACTION) Family Medical History Asthma 19 MOTHER Cataracts 19 FATHER Diabetes mellitus Hypertension 19 FATHER 19 MOTHER Diabetes, Hypertension Physical Exam Vital Signs - First Documented 03/29/19 19:54 Temp 97.6 B/P (MAP) 159/90 (113) Capillary Refill : Height: 5'2.00" Weight: 212lbs. 0.0oz. [id number]; 38.8 BMI Method:Estimated General Appearance: WD/WN, mild distress Eyes: Bilateral Eye Normal Inspection, Bilateral Eye PERRL, Bilateral Eye EOMI HEENT: PERRL/EOMI, normal ENT inspection, pharynx normal Respiratory: lungs clear, no respiratory distress, no accessory muscle use, decreased breath sounds Cardiovascular: normal peripheral pulses, regular rate, rhythm Gastrointestinal: normal bowel sounds, non tender, soft Neurologic/Psychiatric: alert, normal mood/affect, oriented x 3 (near exhaustion) Skin: warm/dry, pallor Progress/Results/Core Measures Suspected Sepsis SIRS Temperature: Pulse: Respiratory Rate: Laboratory Tests 03/29/19 19:52: White Blood Count 5.1 Blood Pressure / Mean: Laboratory Tests 03/29/19 19:52: Creatinine 1.50H, Platelet Count 247, Total Bilirubin 0.4 Results/Orders Lab Results Laboratory Tests Test 03/29/19 19:52 03/29/19 20:00 Range/Units White Blood Count 5.1 4.3-11.0 10^3/uL Red Blood Count 3.64 L 4.35-5.85 10^6/uL Hemoglobin 7.0 L 13.3-17.7 G/DL Hematocrit 24 L 40-54 % Mean Corpuscular Volume 66 L 80-99 FL Mean Corpuscular Hemoglobin 19 L 25-34 PG Mean Corpuscular Hemoglobin Concent 28 L 32-36 G/DL Red Cell Distribution Width 19.0 H 10.0-14.5 % Platelet Count 247 130-400 10^3/uL Mean Platelet Volume 10.1 7.4-10.4 FL Neutrophils (%) (Auto) 70 42-75 % Lymphocytes (%) (Auto) 19 12-44 % Monocytes (%) (Auto) 10 0-12 % Eosinophils (%) (Auto) 1 0-10 % Basophils (%) (Auto) 0 0-10 % Neutrophils # (Auto) 3.6 1.8-7.8 X 10^3 Lymphocytes # (Auto) 1.0 1.0-4.0 X 10^3 Monocytes # (Auto) 0.5 0.0-1.0 X 10^3 Eosinophils # (Auto) 0.1 0.0-0.3 10^3/uL Basophils # (Auto) 0.0 0.0-0.1 10^3/uL Sodium Level 128 L 135-145 MMOL/L Potassium Level 4.5 3.6-5.0 MMOL/L Chloride Level 95 L 98-107 MMOL/L Carbon Dioxide Level 21 21-32 MMOL/L Anion Gap 12 5-14 MMOL/L Blood Urea Nitrogen 14 7-18 MG/DL Creatinine 1.50 H 0.60-1.30 MG/DL Estimat Glomerular Filtration Rate 48 BUN/Creatinine Ratio 9 Glucose Level 779 *H 70-105 MG/DL Calcium Level 9.2 8.5-10.1 MG/DL Corrected Calcium 9.4 8.5-10.1 MG/DL Magnesium Level 1.8 1.8-2.4 MG/DL Total Bilirubin 0.4 0.1-1.0 MG/DL Aspartate Amino Transf (AST/SGOT) 24 5-34 U/L Alanine Aminotransferase (ALT/SGPT) 26 0-55 U/L Alkaline Phosphatase 127 40-136 U/L Troponin I < 0.028 <0.028 NG/ML C-Reactive Protein High Sensitivity 0.16 0.00-0.50 MG/DL Total Protein 8.0 6.4-8.2 GM/DL Albumin 3.8 3.2-4.5 GM/DL Urine Color YELLOW Urine Clarity CLEAR Urine pH 5 5-9 Urine Specific [place] 1.010 L 1.016-1.022 Urine Protein NEGATIVE NEGATIVE Urine Glucose (UA) 4+ H NEGATIVE Urine Ketones NEGATIVE NEGATIVE Urine Nitrite NEGATIVE NEGATIVE Urine Bilirubin NEGATIVE NEGATIVE Urine Urobilinogen NORMAL NORMAL MG/DL Urine Leukocyte Esterase 1+ H NEGATIVE Urine RBC (Auto) NEGATIVE NEGATIVE Urine RBC NONE /HPF Urine WBC 2-5 /HPF Urine Squamous Epithelial Cells NONE /HPF Urine Crystals NONE /LPF Urine Bacteria TRACE /HPF Urine Casts NONE /LPF Urine Mucus NEGATIVE /LPF Urine Culture Indicated YES Urine Opiates Screen NEGATIVE NEGATIVE Urine Oxycodone Screen NEGATIVE NEGATIVE Urine Methadone Screen NEGATIVE NEGATIVE Urine Propoxyphene Screen NEGATIVE NEGATIVE Urine Barbiturates Screen NEGATIVE NEGATIVE Ur Tricyclic Antidepressants Screen NEGATIVE NEGATIVE Urine Phencyclidine Screen NEGATIVE NEGATIVE Urine Amphetamines Screen NEGATIVE NEGATIVE Urine Methamphetamines Screen NEGATIVE NEGATIVE Urine Benzodiazepines Screen NEGATIVE NEGATIVE Urine Cocaine Screen NEGATIVE NEGATIVE Urine Cannabinoids Screen NEGATIVE NEGATIVE My Orders Orders - MUNIR,CHRISTINA J Chest 1 View, Ap/Pa Only (03/29/19 19:50) Cbc With Automated Diff (03/29/19 19:50) Comprehensive Metabolic Panel (03/29/19 19:50) Hs C Reactive Protein (03/29/19 19:50) Magnesium (03/29/19 19:50) Troponin I (03/29/19 19:50) Ua Culture If Indicated (03/29/19 19:50) Ed Iv/Invasive Line Start (03/29/19 19:50) Continuous Ekg Monitoring (03/29/19 19:50) Ekg Tracing (03/29/19 19:50) Drug Screen Stat (Urine) (03/29/19 20:06) Urine Culture (03/29/19 20:00) Ed Iv/Invasive Line Start (03/29/19 20:30) Ns Iv 1000 Ml (Sodium Chloride 0.9%) (03/29/19 20:30) Ns Iv 1000 Ml (Sodium Chloride 0.9%) (03/29/19 20:30) Type And Screen (03/29/19 20:31) Vital Signs: Special (Order) (03/29/19 20:31) Consent-Obtain Consent For (03/29/19 20:31) Monitor S/S Transfusion Reacti (03/29/19 20:31) Medications Given in ED Current Medications Medications Dose Ordered Sig/Winter Route Start Time Stop Time Status Last Admin Dose Admin Sodium Chloride 1,000 ml @ 0 mls/hr Q0M ONCE IV 03/29/19 20:30 03/29/19 20:32 DC 03/29/19 20:44 0 MLS/HR Vital Signs/I&O 03/29/19 19:54 Temp 97.6 B/P (MAP) 159/90 (113) Capillary Refill : Progress Note : Time: 19:59 Progress Note We will check labs and if appropriate get a type and screen/crossmatch. Blood pressure and heart rate are okay although he is upwards of 100 bpm when he walked in. 95 bpm at rest. Oxygen saturation is 99% on room air. No evidence of wheezing, crackles but we will obtain a chest x-ray. His main concern today is that he feels exhausted he thinks is because his anemia has gotten worse so we will address that. We have discussed follow-up with urology and he says he is working on that should be able to in the next few weeks. 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 EGD colonoscopy done in February demonstrating no active bleeding. Mild aortic root dilatation 4.[address] January 2016. Coronary artery disease as indicated by LAD calcifications seen on CT in January 2016. ECG Initial ECG Impression Date: Mar 29, 2019 Initial ECG Impression Time: 19:44 Initial ECG Rate: 93 Initial ECG Rhythm: Normal Sinus Initial ECG Intervals: Normal Initial ECG Impression: Normal Comment clinically significant ST Elevation or depression Diagnostic Imaging Diagonstic Imaging: Xray Plain Films/CT/US/NM/MRI: chest (1v) Comments NAME: PRIETO MARRERO [facility] REC#: [id number] PT STATUS: REG ER : 1960 PHYSICIAN: CHRISTINA AMARAL MD ADMIT DATE: 03/29/19/ER Signed Date of Exam:03/29/19 CHEST 1 VIEW, AP/PA ONLY INDICATION: Difficulty breathing. EXAMINATION: Portable chest at 7:58 p.m. FINDINGS: Heart size and pulmonary vascularity are normal. Lungs are clear. There are no effusions or pneumothoraces. IMPRESSION: Negative chest. Dictated by: Dictated on workstation # [id number] Dict: 03/29/192010 Trans: 03/29/192013 E [id number] Interpreted by: SAVANA PARRA MD Electronically signed by: SAVANA PARRA MD 03/29/192013 Reviewed: Reviewed by Me Departure Communication (Admissions) Time/Spoke to Admitting Phy: 20:45 Discussed the case with Dr. Waldrop and he agrees to observe the patient. IV fl uids, insulin and transfused 2 units. Impression Primary Impression: Anemia Qualified Codes: D64.9 - Anemia, unspecified Additional Impressions: Hyperglycemia Acute kidney injury Disposition: ADMITTED INPATIENT Condition: Stable Admissions Decision to Admit Reason: Admit from ER (General) Decision to Admit/Date: Mar 29, 2019 Time/Decision to Admit Time: 20:45 Departure-Patient Inst. Referrals: 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 (PCP) Primary Care Physician LALO LOPEZ (Family) Primary Care Physician CHRISTINA AMARAL Mar 29, 2019 19:58
[2019-03-29 20:02] LABS: BASOPHILS % (AUTO) 0 % (0-10); EOSINOPHILS # (AUTO) 0.1 10^3/uL (0.0-0.3); EOSINOPHILS % (AUTO) 1 % (0-10); HEMATOCRIT 24 % (40-54); LYMPHOCYTES % (AUTO) 19 % (12-44); MEAN CORPUSCULAR HEMOGLOBIN 19 PG (25-34); MEAN CORPUSCULAR HGB CONC 28 G/DL (32-36); MEAN CORPUSCULAR VOLUME 66 FL (80-99); MEAN PLATELET VOLUME 10.1 FL (7.4-10.4); MONOCYTES # (AUTO) 0.5 X 10^3 (0.0-1.0); MONOCYTES % (AUTO) 10 % (0-12); NEUTROPHILS # (AUTO) 3.6 X 10^3 (1.8-7.8); NEUTROPHILS % (AUTO) 70 % (42-75); PLATELET COUNT 247 10^3/uL (130-400); WHITE BLOOD COUNT 5.1 10^3/uL (4.3-11.0)
[2019-03-29 20:11] LABS: BILIRUBIN,URINE NEGATIVE (NEGATIVE); CLARITY,URINE CLEAR; COLOR,URINE YELLOW; GLUCOSE, URINE (UA) 4+ (NEGATIVE); KETONES,URINE NEGATIVE (NEGATIVE); LEUKOCYTE ESTERASE ,URINE 1+ (NEGATIVE); NITRITE,URINE NEGATIVE (NEGATIVE); PH,URINE 5 (5-9); PROTEIN,URINE NEGATIVE (NEGATIVE); UROBILINOGEN,URINE NORMAL (NORMAL)
--- NOTE | 2019-03-29 20:14 | Diagnostic Imaging Report ---
INDICATION: Difficulty breathing. EXAMINATION: Portable chest at 7:58 p.m. FINDINGS: Heart size and pulmonary vascularity are normal. Lungs are clear. There are no effusions or pneumothoraces. IMPRESSION: Negative chest. Dictated by: Dictated on workstation # [id number]
[2019-03-29 20:18] LABS: BACTERIA,URINE TRACE /HPF
[2019-03-29 20:19] LABS: ALANINE AMINOTRANSFERASE 26 U/L (0-55); ALBUMIN 3.8 GM/DL (3.2-4.5); ALKALINE PHOSPHATASE 127 U/L (40-136); BILIRUBIN,TOTAL 0.4 MG/DL (0.1-1.0); BUN/CREATININE RATIO 9; CALCIUM 9.2 MG/DL (8.5-10.1); CARBON DIOXIDE 21 MMOL/L (21-32); CHLORIDE 95 MMOL/L (98-107); GFR ESTIMATED 48; MAGNESIUM 1.8 MG/DL (1.8-2.4); POTASSIUM 4.5 MMOL/L (3.6-5.0); SODIUM 128 MMOL/L (135-145)
[2019-03-29 20:22] LABS: AMPHETAMINE SCREEN, URINE NEGATIVE (NEGATIVE); BARBITURATE SCREEN URINE NEGATIVE (NEGATIVE); BENZODIAZEPINES SCREEN URINE NEGATIVE (NEGATIVE); CANNABINOID SCREEN, URINE NEGATIVE (NEGATIVE); COCAINE SCREEN URINE NEGATIVE (NEGATIVE); METHADONE STAT NEGATIVE (NEGATIVE); METHAMPHETAMINE SCREEN URINE S NEGATIVE (NEGATIVE); OPIATE SCREEN URINE NEGATIVE (NEGATIVE); OXYCODONE STAT NEGATIVE (NEGATIVE); PROPOXYPHENE STAT NEGATIVE (NEGATIVE); TRICYCLIC ANTIDEPRESSANTS SCRE NEGATIVE (NEGATIVE)
[2019-03-29 20:27] LABS: GLUCOSE 779 MG/DL (70-105)
[2019-03-29] MEDS ORDERED: NS IV 1000 ML 1,000 ML IV ONE (20:30)
[2019-03-29] MEDS ORDERED: NS IV 1000 ML 1,000 ML IV SCH (20:30)
[2019-03-29] MEDS ORDERED: inSUlin (REGULAR) HUMAN 1 UNIT/0.01 ML (CHARGE PER UNIT) SC ONE ×2 (20:45→21:45)
[2019-03-29 22:10] VITALS: BP 149/86
[2019-03-29 22:12] VITALS: BP 94/149
[2019-03-29] MEDS ORDERED: NS IV 500 ML 500 ML ONE (22:36)
[2019-03-29] MEDS: NS IV 1000 ML 1,000 ML IV SCH (22:45)
[2019-03-29] MEDS ORDERED: ACETAMINOPHEN 500 MG TAB (TYLENOL) PO PRN (23:15)
[2019-03-29 23:55] VITALS: BP 127/77
[2019-03-30] VITALS (10 sets, daily range): BP systolic 111–130; BP diastolic 58–80
[2019-03-30] MEDS: ONDANSETRON 4 MG/2 ML (SDV) Z0FRAN IV PRN (05:25)
[2019-03-30] MEDS: NS IV 1000 ML 1,000 ML IV SCH ×3 (05:45→20:57)
[2019-03-30] MEDS: inSUlin ASPART (NovoLOG) 1 UNIT/0.01 ML (CHARGE PER UNIT) SC SCH ×4 (06:25→21:34)
[2019-03-30 08:16] LABS: BASOPHILS % (AUTO) 0 % (0-10); EOSINOPHILS # (AUTO) 0.1 10^3/uL (0.0-0.3); EOSINOPHILS % (AUTO) 2 % (0-10); HEMATOCRIT 27 % (40-54); HEMOGLOBIN 8.1 G/DL (13.3-17.7); LYMPHOCYTES # (AUTO) 1.2 X 10^3 (1.0-4.0); LYMPHOCYTES % (AUTO) 25 % (12-44); MEAN CORPUSCULAR HEMOGLOBIN 21 PG (25-34); MEAN CORPUSCULAR HGB CONC 31 G/DL (32-36); MEAN CORPUSCULAR VOLUME 70 FL (80-99); MEAN PLATELET VOLUME 8.9 FL (7.4-10.4); MONOCYTES # (AUTO) 0.4 X 10^3 (0.0-1.0); MONOCYTES % (AUTO) 8 % (0-12); NEUTROPHILS # (AUTO) 3.3 X 10^3 (1.8-7.8); NEUTROPHILS % (AUTO) 65 % (42-75); PLATELET COUNT 200 10^3/uL (130-400)
[2019-03-30 08:37] LABS: ALANINE AMINOTRANSFERASE 24 U/L (0-55); ALBUMIN 3.4 GM/DL (3.2-4.5); ALKALINE PHOSPHATASE 85 U/L (40-136); BILIRUBIN,TOTAL 0.6 MG/DL (0.1-1.0); BUN/CREATININE RATIO 11; CALCIUM 8.3 MG/DL (8.5-10.1); CARBON DIOXIDE 22 MMOL/L (21-32); CHLORIDE 104 MMOL/L (98-107); CREATININE SERUM 0.99 MG/DL (0.60-1.30); GFR ESTIMATED > 60; GLUCOSE 247 MG/DL (70-105); POTASSIUM 4.2 MMOL/L (3.6-5.0); SODIUM 134 MMOL/L (135-145); TOTAL PROTEIN 6.9 GM/DL (6.4-8.2)
[2019-03-30] MEDS ORDERED: LOSA50TA63 PO (09:09)
[2019-03-30] MEDS ORDERED: SILD100T PO (09:09)
[2019-03-30] MEDS ORDERED: TAMS0.4C98 PO (09:09)
[2019-03-30] MEDS ORDERED: ACET-2267 PO (09:09)
[2019-03-30] MEDS ORDERED: INSU100V5 SQ (09:09)
[2019-03-30] MEDS ORDERED: PANT40TA2 PO (09:09)
[2019-03-30] MEDS ORDERED: SUCR1TAB36 PO (09:09)
--- NOTE | 2019-03-30 09:10 | NUR ---
CALLED [facility] FOR A LIST OF RECENTLY FILLED MEDICATIONS. PATIENT HAD A BAG OF HIS BOTTLES WITH HIM AND VERIFIED HOW HE TAKES THEM TO THE BEST OF HIS ABILITY. [facility] FILLED: 02-17-19 CARAFATE 1GM ACHS #120 (BOTTLE FULL) 02-17-19 PROTONIX 40MG DAILY #30 03-16-19 LOSARTAN 50MG DAILY #30 03-17-19 TAMSULOSIN 0.4MG DAILY #30 03-23-19 LEVEMIR VIAL 40 BID 2 VIALS HE STATES HE LOST SOME OF THE BOTTLES IN HIS SEMI TRUCK AND THAT IS WHY HE HAS NOT TAKEN THEM. 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 HE ALSO HAS TYLENOL AND IRON HE STATES HE TAKES OTC. HE ALSO STATES HE TAKES A MTV DAILY, CLARITIN PRN, AND HAS A PROVENTIL INHALER PRN THAT HE DOES NOT HAVE HERE WITH HIM. HE HAS A OLD BOTTLE OF PRESCRIPTION NAPROXEN HOWEVER THE TABLETS INSIDE ARE VIAGRA. HE STATES HE FOUND THEM IN HIS TRUCK WELL.
--- NOTE | 2019-03-30 09:38 | Short Stay Summary-Hospitalist ---
History of Present Illness Source: patient Date Seen 03/30/19 Attending Physician Karlos Waldrop MD [facility] Referring Physician Date of Admission Mar 29, 2019 at 20:40 Home Medications & Allergies Home Medications Reviewed patient Home Medication Reconciliation performed by pharmacy medication reconciliations nuclear fuel processing technician and/or nursing. Patients Allergies have been reviewed. Allergies Allergies Coded Allergies No Known Drug Allergies (Unverified04/10/17) Past Sxbrgfe-Khsyew-Yotqta Hx Patient Social History Alcohol Use: Past History Number of Drinks Today: AA Alcohol Beverage of Choice: Beer Recreational Drug Use: No Drug of Choice: HISTORY OF IV COCAINE AND METH, AND MARIJUANA Smoking Status: Current Everyday Smoker Type Used: Cigarettes (0.5 ppd) 2nd Hand Smoke Exposure: Yes Recent Foreign Travel: No Contact w/other who traveled: No Recent Hopitalizations: Yes (03/09/17) Recent Infectious Disease Expo: No Immunizations Up To Date Tetanus Booster (TDap): Unknown Pediatric: No Date of Pneumonia Vaccine: February 19, 2007 Seasonal Allergies Seasonal Allergies: Yes Past Medical History Surgeries: Abdominal, Orthopedic Currently Using CPAP: No (QUIT USING IT YEARS AGO) Currently Using BIPAP: No Cardiac: Coronary Artery Disease, Heart Attack, High Cholesterol, Hypertension Neurological: Neuropathy Reproductive: No Sexually Transmitted Disease: No HIV/AIDS: No Genitourinary: Renal Failure Gastrointestinal: Colitis, Gastroesophageal Reflux, Liver Disease/Jaundice, Hepatitis, Polyps, Hiatal Hernia Musculoskeletal: Arthritis Endocrine: Diabetes, Insulin dep Loss of Vision: Bilateral Hearing Impairment: Denies History of Blood Disorders: Yes (ANEMIA) Adverse Reaction to Blood Padilla: No (HAS HAD BLOOD WITH NO REACTION) Family History Alcoholism 19 FATHER Arthritis 19 MOTHER Asthma 19 MOTHER Cataracts 19 FATHER Diabetes mellitus Hypertension 19 FATHER 19 MOTHER Respiratory disorder 19 FATHER 19 MOTHER Diabetes, Hypertension Physical Exam Physical Exam Vital Signs Vital Signs - First Documented 03/29/19 03/29/19 03/29/19 19:54 21:30 21:51 Temp 97.6 Pulse 101 Resp 18 B/P (MAP) 159/90 (113) Pulse Ox 99 O2 Delivery Room Air Capillary Refill : Less Than 3 SecondsLess Than 3 Seconds Height, Weight, BMI Height: 5'10.00" Weight: 209lbs. 12.8oz. 95.865587wm; 38.8 BMI Method:Estimated Eyes: Bilateral Eye Normal Inspection, Bilateral Eye PERRL, Bilateral Eye EOMI Results Results/Procedures Labs Laboratory Tests 03/29/19 19:52 03/30/19 08:11 Patient resulted labs reviewed. Clinical Quality Measures DVT/VTE Risk/Contraindication: Risk Factor Score Per Nursin RFS Level Per Nursing on Admit: 2=Moderate JESUS ROJAS DO Mar 30, 2019 09:38
--- NOTE | 2019-03-30 10:23 | History & Physical-Hospitalist ---
History of Present Illness HPI/Chief Complaint Chief complaint: Severe anemia HPI: This is a 59yoWM known to us from prior hospital stays with a past medical history of severe anemia from GI bleed and a new bladder mass who presents to the ER with weakness and SOB found to have low Hgb s/p two units of blood increased Hgb to 8.1 but requiring two more units due to the rapid loss. Dr. Hansen will be consulted. He is in the process of obtaining Medicaid insurance with disability and he cannot afford to go see urology for the bladder mass. I will consult Dr. Hansen and I have restarted all of his home medications. Source: patient, old records Exam Limitations: no limitations Date Seen 03/30/19 Time Seen by a Provider: 10:00 Attending Physician Karlos Waldrop MD [facility] Referring Physician Date of Admission Mar 29, 2019 at 20:40 Home Medications & Allergies Home Medications Reviewed patient Home Medication Reconciliation performed by pharmacy medication reconciliations non destructive evaluation technician and/or nursing. Patients Allergies have been reviewed. Allergies Allergies Coded Allergies No Known Drug Allergies (Unverified04/10/17) Past Tvedykr-Ignjus-Decswb Hx Past Med/Social Hx: Reviewed Nursing Past Med/Soc Hx, Reviewed and Corrections made Patient Social History Marrital Status: cohabiting Employed/Student: unemployed Alcohol Use: Past History Number of Drinks Today: AA Alcohol Beverage of Choice: Beer Recreational Drug Use: No Drug of Choice: HISTORY OF IV COCAINE AND METH, AND MARIJUANA Smoking Status: Current Everyday Smoker Type Used: Cigarettes (0.5 ppd) 2nd Hand Smoke Exposure: Yes Recent Foreign Travel: No Contact w/other who traveled: No Recent Hopitalizations: Yes (03/09/17) Recent Infectious Disease Expo: No Immunizations Up To Date Tetanus Booster (TDap): Unknown Pediatric: No Date of Pneumonia Vaccine: February 19, 2007 Seasonal Allergies Seasonal Allergies: Yes Past Medical History Surgeries: Abdominal, Orthopedic Currently Using CPAP: No (QUIT USING IT YEARS AGO) Currently Using BIPAP: No Cardiac: Coronary Artery Disease, Heart Attack, High Cholesterol, Hypertension Neurological: Neuropathy Reproductive: No Sexually Transmitted Disease: No HIV/AIDS: No Genitourinary: Renal Failure Gastrointestinal: Colitis, Gastroesophageal Reflux, Liver Disease/Jaundice, He patitis, Polyps, Hiatal Hernia Musculoskeletal: Arthritis Endocrine: Diabetes, Insulin dep Loss of Vision: Bilateral Hearing Impairment: Denies History of Blood Disorders: Yes (ANEMIA) Adverse Reaction to Blood Padilla: No (HAS HAD BLOOD WITH NO REACTION) Family History Alcoholism 19 FATHER Arthritis 19 MOTHER Asthma 19 MOTHER Cataracts 19 FATHER Diabetes mellitus Hypertension 19 FATHER 19 MOTHER Respiratory disorder 19 FATHER 19 MOTHER Diabetes, Hypertension Review of Systems Constitutional: see HPI, weakness EENTM: no symptoms reported Respiratory: no symptoms reported Cardiovascular: no symptoms reported Gastrointestinal: no symptoms reported Genitourinary: decreased output, dysuria, frequency Musculoskeletal: no symptoms reported Skin: no symptoms reported Psychiatric/Neurological: No Symptoms Reported Physical Exam Physical Exam Vital Signs Vital Signs - First Documented 03/29/19 03/29/19 03/29/19 19:54 21:30 21:51 Temp 97.6 Pulse 101 Resp 18 B/P (MAP) 159/90 (113) Pulse Ox 99 O2 Delivery Room Air Capillary Refill : Less Than 3 SecondsLess Than 3 Seconds Height, Weight, BMI Height: 5'10.00" Weight: 209lbs. 12.8oz. 95.696953dd; 38.8 BMI Method:Estimated General Appearance: No Apparent Distress, WD/WN, Chronically ill, Obese Eyes: Right Eye Normal Inspection, Right Eye PERRL HEENT: PERRL/EOMI, Normal ENT Inspection, Pharynx Normal, Moist Mucous Membranes Neck: Full Range of Motion, Normal Inspection, Non Tender Respiratory: Chest Non Tender, Lungs Clear, Normal Breath Sounds, No Accessory Muscle Use, No Respiratory Distress Cardiovascular: Regular Rate, Rhythm, No Edema, No Gallop, No JVD, No Murmur, Normal Peripheral Pulses Gastrointestinal: Normal Bowel Sounds, No Organomegaly, No Pulsatile Mass, Non Tender, Soft Back: Normal Inspection, No CVA Tenderness, No Vertebral Tenderness Extremity: Normal Capillary Refill, Normal Inspection, Normal Range of Motion, Non Tender, No Calf Tenderness, No Pedal Edema Neurologic/Psychiatric: Alert, Oriented x3, No Motor/Sensory Deficits, Normal Mood/Affect Skin: Normal Color, Warm/Dry Lymphatic: No Adenopathy Results Results/Procedures Labs Laboratory Tests 03/29/19 19:52 03/30/19 08:11 Patient resulted labs reviewed. Assessment/Plan Admission Diagnosis Assessment: Severe anemia Transfusion 4 units of blood h/o GIB Bladder mass Smoker Hepatitis C Type 2 diabetes mellitus with hyperglycemia, with long-term current use of insulin Hypertension Hyperlipidemia Hyperglycemia Plan: Consult Dr Hansen Monitor hgb Home meds Admission Status: Observation Diagnosis/Problems Diagnosis/Problems (1) Symptomatic anemia Status: Acute (2) Transfusion of blood during current hospitalisation Status: Acute (3) Smoker Status: Chronic (4) Hyperlipidemia Status: Chronic Qualifiers: Hyperlipidemia type: mixed hyperlipidemia Qualified Codes: E78.2 - Mixed hyperlipidemia (5) Hypertension Status: Chronic Qualifiers: Hypertension type: essential hypertension Qualified Codes: I10 - Essential (primary) hypertension (6) Type 2 diabetes mellitus with hyperglycemia, with long-term current use of insulin Status: Chronic (7) Hepatitis C Status: Chronic Qualifiers: Viral hepatitis chronicity: acute Hepatic coma status: without hepatic coma Qualified Codes: B17.10 - Acute hepatitis C without hepatic coma (8) Hyperglycemia Status: Acute (9) Anemia Status: Acute Qualifiers: Anemia type: iron deficiency Iron deficiency anemia type: chronic blood loss Qualified Codes: D50.0 - Iron deficiency anemia secondary to blood loss (chronic) (10) Abnormal CT scan, bladder Status: Chronic Clinical Quality Measures DVT/VTE Risk/Contraindication: Risk Factor Score Per Nursin RFS Level Per Nursing on Admit: 2=Moderate JESUS ROJAS DO Mar 30, 2019 10:23
[2019-03-30] MEDS ORDERED: RT-ALBUTEROL SULF 2.5 MG/3 ML PRE-MIX VIAL IH PRN (11:00)
[2019-03-30] MEDS ORDERED: ACETAMINOPHEN 500 MG TAB (TYLENOL) PO PRN (12:00)
--- NOTE | 2019-03-30 13:00 | NUR ---
Pt is and lives in [place]. 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 Pt states they are getting by financially through help from family and friends. Pt states he will likely need assistance in obtaining his insulin as "let that go" due to lack of income. He obtains his medication through the [facility] at [facility] and Geo CALHOUN is his provider according to patient. [facility] did file for Medicaid and it remains pending Will be glad to assist with Medications upon discharge Will follow.
[2019-03-30] MEDS: SUCRALFATE 1 GM (CARAFATE) TAB PO SCH ×2 (16:27→20:57)
--- NOTE | 2019-03-30 17:44 | Consultation (Surgery) ---
History of Present Illness History of Present Illness Patient Consulted On(lazaro/time) 03/30/19 17:43 Date Seen by Provider: Mar 30, 2019 Time Seen by Provider: 17:44 History of Present Illness Consult requested by Dr. Cervantes for anemia Patient is a 59-year-old male known to me with history of anemia and GI bleed. Patient states that recently he's been noticing black tarry stools that he's been having. Significantly over the last 3-4 days. He's been having increased fatigue and weakness. Patient states that he hasn't been taking all his medications as he supposed to 4 stomach. Patient not having any abdominal pain. He has required transfusion. Patient with no other complaints at this time. Patient states nothing is making things better. Nothing was seems to make them worse. Patient is felt that he is probably losing blood again and need to be checked out. He denies any nausea vomiting fever sweats chills. Allergies and Home Medications Allergies Coded Allergies: No Known Drug Allergies (Unverified , 04/10/17) Home Medications Acetaminophen 500 Mg Tablet, 500-1,000 MG PO Q4H PRN for PAIN-MILD, (Reported) Albuterol Sulfate 6.7 Gm Hfa.aer.ad, 2 PUFF IH QID PRN for SHORTNESS OF BREATH, (Reported) Ferrous Sulfate 325 Mg Tablet, 2 TAB PO BID, (Reported) Insulin Determir 1,000 Units/10 Ml Soln, 40 UNITS SQ BID, (Reported) Loratadine 10 Mg Tablet, 10 MG PO DAILY PRN for ALLERGIES, (Reported) Losartan Potassium 50 Mg Tablet, 50 MG PO DAILY, (Reported) Multivitamin 1 Each Tablet, 1 TAB PO DAILY, (Reported) Pantoprazole Sodium 40 Mg Tablet.dr, 40 MG PO DAILY, (Reported) LAST FILLED #30 5-7-19 Sildenafil Citrate 100 Mg Tablet, 100 MG PO UD PRN for ED, (Reported) Sucralfate 1 Gm Tablet, 1 GM PO ACHS, (Reported) LAST FILLED #120 5-7-19 Tamsulosin HCl 0.4 Mg Cap, 0.4 MG PO DAILY, (Reported) Patient Home Medication List Home Medication List Reviewed: Yes Past Sclelcj-Ajzjjf-Juqblp Hx Patient Social History Alcohol Use: Past History Number of Drinks Today: AA Recreational Drug Use: No Drug of Choice: HISTORY OF IV COCAINE AND METH, AND MARIJUANA Smoking Status: Current Everyday Smoker Type Used: Cigarettes (0.5 ppd) 2nd Hand Smoke Exposure: Yes Recent Foreign Travel: No Contact w/Someone Who Travel: No Recent Infectious Disease Expo: No Recent Hopitalizations: Yes (03/09/17) Immunizations Up To Date Tetanus Booster (TDap): Unknown PED Vaccines UTD: No Date of Pneumonia Vaccine: February 19, 2007 Seasonal Allergies Seasonal Allergies: Yes Surgeries History of Surgeries: Yes Surgeries: Abdominal, Orthopedic Respiratory History of Respiratory Disorde: Yes (sleep apnea, used to use cpap) Respiratory Disorders: Sleep Apnea Cardiovascular History of Cardiac Disorders: Yes Cardiac Disorders: Coronary Artery Disease, Heart Attack, High Cholesterol, Hypertension Neurological History of Neurological Disord: Yes (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) Neurological Disorders: Neuropathy Reproductive System Hx Reproductive Disorders: No Sexually Transmitted Disease: No HIV/AIDS: No Genitourinary History of Genitourinary Disor: Yes Genitourinary Disorders: Renal Failure Gastrointestinal History of Gastrointestinal Di: Yes (HEPATITIS C--NO TREATMENT) Gastrointestinal Disorders: Colitis, Gastroesophageal Reflux, Liver Disease/Ja undice, Hepatitis, Polyps, Hiatal Hernia Musculoskeletal History of Musculoskeletal Dis: Yes Musculoskeletal Disorders: Arthritis Endocrine History of Endocrine Disorders: Yes (MORBID OBESITY; TAKES INSULIN + PILLS, BUT IS NON-COMPLIAINT ) Endocrine Disorders: Diabetes, Insulin dep HEENT History of HEENT Disorders: No Loss of Vision: Bilateral Hearing Impairment: Denies Cancer History of Cancer: No Psychosocial History of Psychiatric Problem: No Integumentary History of Skin or Integumenta: No Blood Transfusions History of Blood Disorders: Yes (ANEMIA) Adverse Reaction to a Blood Tr: No (HAS HAD BLOOD WITH NO REACTION) Family Medical History Significant Family History: Diabetes, Hypertension Family Medial History: Alcoholism 19 FATHER Arthritis 19 MOTHER Asthma 19 MOTHER Cataracts 19 FATHER Diabetes mellitus Hypertension 19 FATHER 19 MOTHER Respiratory disorder 19 FATHER 19 MOTHER Review of Systems-General Constitutional: see HPI EENTM: no symptoms reported Respiratory: see HPI Cardiovascular: no symptoms reported Gastrointestinal: see HPI Genitourinary: no symptoms reported Musculoskeletal: no symptoms reported Skin: no symptoms reported Psychiatric/Neurological: No Symptoms Reported Physical Exam-General Problems Physical Exam Vital Signs Vital Signs - First Documented 03/29/19 03/29/19 03/29/19 19:54 21:30 21:51 Temp 97.6 Pulse 101 Resp 18 B/P (MAP) 159/90 (113) Pulse Ox 99 O2 Delivery Room Air Capillary Refill : Less Than 3 SecondsLess Than 3 Seconds General Appearance: no apparent distress (lying in bed) HEENT: PERRL/EOMI, normal ENT inspection Neck: non-tender, supple, normal inspection Respiratory: chest non-tender, no respiratory distress, no accessory muscle use Cardiovascular: regular rate, rhythm Gastrointestinal: non tender, soft, no organomegaly Rectal: deferred Back: no CVA tenderness, no vertebral tenderness Extremities: non-tender, normal inspection, no pedal edema, no calf tenderness Neurologic/Psychiatric: no motor/sensory deficits, alert, normal mood/affect, oriented x 3 Skin: normal color, warm/dry Lymphatic: no adenopathy Data Review Labs Laboratory Tests 03/29/19 19:52: White Blood Count 5.1, Red Blood Count 3.64L, Hemoglobin 7.0L, Hematocrit 24L, Mean Corpuscular Volume 66L, Mean Corpuscular Hemoglobin 19L, Mean Corpuscular Hemoglobin Concent 28L, Red Cell Distribution Width 19.0H, Platelet Count 247, Mean Platelet Volume 10.1, Neutrophils (%) (Auto) 70, Lymphocytes (%) (Auto) 19, Monocytes (%) (Auto) 10, Eosinophils (%) (Auto) 1, Basophils (%) (Auto) 0, Neutrophils # (Auto) 3.6, Lymphocytes # (Auto) 1.0, Monocytes # (Auto) 0.5, Eosinophils # (Auto) 0.1, Basophils # (Auto) 0.0, Sodium Level 128L, Potassium Level 4.5, Chloride Level 95L, Carbon Dioxide Level 21, Anion Gap 12, Blood Urea Nitrogen 14, Creatinine 1.50H, Estimat Glomerular Filtration Rate 48, BUN/Creatinine Ratio 9, Glucose Level 779*H, Calcium Level 9.2, Corrected Calcium 9.4, Magnesium Level 1.8, Total Bilirubin 0.4, Aspartate Amino Transf (AST/SGOT) 24, Alanine Aminotransferase (ALT/SGPT) 26, Alkaline Phosphatase 127, Troponin I < 0.028, C-Reactive Protein High Sensitivity 0.16, Total Protein 8.0, Albumin 3.8 03/29/19 20:00: Urine Color YELLOW, Urine Clarity CLEAR, Urine pH 5, Urine Specific [place] 1.010L, Urine Protein NEGATIVE, Urine Glucose (UA) 4+H, Urine Ketones NEGATIVE, Urine Nitrite NEGATIVE, Urine Bilirubin NEGATIVE, Urine Urobilinogen NORMAL, Urine Leukocyte Esterase 1+H, Urine RBC (Auto) NEGATIVE, Urine RBC NONE, Urine WBC 2-5, Urine Squamous Epithelial Cells NONE, Urine Crystals NONE, Urine Bacteria TRACE, Urine Casts NONE, Urine Mucus NEGATIVE, Urine Culture Indicated YES, Urine Opiates Screen NEGATIVE, Urine Oxycodone Screen NEGATIVE, Urine Methadone Screen NEGATIVE, Urine Propoxyphene Screen NEGATIVE, Urine Barbiturates Screen NEGATIVE, Ur Tricyclic Antidepressants Screen NEGATIVE, Urine Phencyclidine Screen NEGATIVE, Urine Amphetamines Screen NEGATIVE, Urine Methamphetamines Screen NEGATIVE, Urine Benzodiazepines Screen NEGATIVE, Urine Cocaine Screen NEGATIVE, Urine Cannabinoids Screen NEGATIVE 03/29/19 21:33: Glucometer > 600*H 03/29/19 23:35: Glucometer 421*H 03/30/19 01:56: Glucometer 184H 03/30/19 04:11: Glucometer 143H 03/30/19 05:36: Glucometer 124H 03/30/19 08:11: White Blood Count 5.0, Red Blood Count 3.78L, Hemoglobin 8.1L, Hematocrit 27L, Mean Corpuscular Volume 70L, Mean Corpuscular Hemoglobin 21L, Mean Corpuscular Hemoglobin Concent 31L, Red Cell Distribution Width 22.0H, Platelet Count 200, Mean Platelet Volume 8.9, Neutrophils (%) (Auto) 65, Lymphocytes (%) (Auto) 25, Monocytes (%) (Auto) 8, Eosinophils (%) (Auto) 2, Basophils (%) (Auto) 0, Neutrophils # (Auto) 3.3, Lymphocytes # (Auto) 1.2, Monocytes # (Auto) 0.4, Eosinophils # (Auto) 0.1, Basophils # (Auto) 0.0, Sodium Level 134L, Potassium Level 4.2, Chloride Level 104, Carbon Dioxide Level 22, Anion Gap 8, Blood Urea Nitrogen 11, Creatinine 0.99, Estimat Glomerular Filtration Rate > 60, BUN/Creatinine Ratio 11, Glucose Level 247H, Calcium Level 8.3L, Corrected Calcium 8.8, Total Bilirubin 0.6, Aspartate Amino Transf (AST/SGOT) 23, Alanine Aminotransferase (ALT/SGPT) 24, Alkaline Phosphatase 85, Total Protein 6.9, Albumin 3.4 03/30/19 11:05: Glucometer 333H 03/30/19 16:15: Glucometer 327H Microbiology 03/29/19 Urine Culture - Preliminary, Resulted Escherichia coli Assessment/Plan Assessment/Plan Assessment/Plan Anemia likely secondary to upperGI bleed requiring transfusion melena Diabetes I feel patient would benefit from repeat endoscopy. His last colonoscopy had poor prep but he does not wish to repeat this at this time. Patient does agree to EGD. I feel this is most likely his source anyways of GI bleed. Patient was discussed risk and benefits and agrees with proceeding. Patient be nothing by mouth after midnight. Will keep patient on Protonix. Patient encouraged to take medications as prescribed on an outpatient basis. Patient to have EGD performed tomorrow. Clinical Quality Measures DVT/VTE Risk/Contraindication: Risk Factor Score Per Nursin RFS Level Per Nursing on Admit: 2=Moderate ANABELL ORELLANA DO Mar 30, 2019 17:44
[2019-03-30] MEDS: FERROUS SULF 325 MG (IRON) TAB PO SCH (20:57)
[2019-03-31] VITALS (7 sets, daily range): BP systolic 116–166; BP diastolic 60–82
[2019-03-31] MEDS: NS IV 1000 ML 1,000 ML IV SCH ×4 (04:12→19:41)
[2019-03-31 05:46] LABS: BASOPHILS % (AUTO) 0 % (0-10); EOSINOPHILS # (AUTO) 0.1 10^3/uL (0.0-0.3); EOSINOPHILS % (AUTO) 2 % (0-10); HEMATOCRIT 27 % (40-54); LYMPHOCYTES % (AUTO) 18 % (12-44); MEAN CORPUSCULAR HGB CONC 29 G/DL (32-36); MEAN CORPUSCULAR VOLUME 70 FL (80-99); MEAN PLATELET VOLUME 9.3 FL (7.4-10.4); MONOCYTES # (AUTO) 0.5 X 10^3 (0.0-1.0); MONOCYTES % (AUTO) 9 % (0-12); NEUTROPHILS # (AUTO) 3.7 X 10^3 (1.8-7.8); NEUTROPHILS % (AUTO) 71 % (42-75); PLATELET COUNT 229 10^3/uL (130-400); RED CELL DISTRIBUTION WIDTH 21.7 % (10.0-14.5); WHITE BLOOD COUNT 5.2 10^3/uL (4.3-11.0)
[2019-03-31 05:47] LABS: MEAN CORPUSCULAR HEMOGLOBIN 20 PG (25-34)
[2019-03-31 06:08] LABS: ALANINE AMINOTRANSFERASE 23 U/L (0-55); ALBUMIN 3.3 GM/DL (3.2-4.5); ALKALINE PHOSPHATASE 84 U/L (40-136); BILIRUBIN,TOTAL 0.4 MG/DL (0.1-1.0); BUN/CREATININE RATIO 12; CALCIUM 8.5 MG/DL (8.5-10.1); CARBON DIOXIDE 24 MMOL/L (21-32); CHLORIDE 107 MMOL/L (98-107); CREATININE SERUM 0.82 MG/DL (0.60-1.30); GFR ESTIMATED > 60; GLUCOSE 109 MG/DL (70-105); POTASSIUM 3.7 MMOL/L (3.6-5.0); SODIUM 138 MMOL/L (135-145)
[2019-03-31] MEDS: inSUlin ASPART (NovoLOG) 1 UNIT/0.01 ML (CHARGE PER UNIT) SC SCH ×4 (06:40→22:04)
[2019-03-31] MEDS: SUCRALFATE 1 GM (CARAFATE) TAB PO SCH ×4 (06:41→22:24)
--- NOTE | 2019-03-31 07:29 | Progress Note ---
Subjective Date Seen by a Provider: Mar 31, 2019 Time Seen by a Provider: 07:27 Subjective/Events-last exam hgb stable. no new coplaints. bm yesterday more brown instead of black. denies n/v fever sweats chills shortness of breath or chest pain. Objective Exam Vital Signs Date Time Temp Pulse Resp B/P (MAP) Pulse Ox O2 Delivery O2 Flow Rate FiO2 03/31/19 07:00 81 03/31/19 04:23 98.3 83 18 149/73 (98) 99 Room Air 03/31/19 01:00 76 03/31/19 00:06 98.7 82 20 131/80 (97) 98 Room Air 03/30/19 20:00 98 Room Air 03/30/19 19:25 98.2 80 18 122/71 (88) 98 Room Air 03/30/19 18:57 81 03/30/19 16:12 97.8 83 18 130/71 (90) 99 Room Air 03/30/19 13:00 80 03/30/19 12:00 99.3 80 20 115/58 (77) 96 Room Air 03/30/19 08:00 97.7 87 18 117/68 (84) 97 Room Air 03/30/19 08:00 99 Room Air I & O 03/31/19 07:00 Intake Total 3460 ml Balance 3460 ml Capillary Refill : Less Than 3 SecondsLess Than 3 Seconds General Appearance: No Apparent Distress, WD/WN, Chronically ill, Obese HEENT: PERRL/EOMI, Normal ENT Inspection, Pharynx Normal, Moist Mucous Membranes Neck: Full Range of Motion, Normal Inspection, Non Tender Respiratory: Chest Non Tender, No Accessory Muscle Use, No Respiratory Distress Cardiovascular: Regular Rate, Rhythm, Normal Peripheral Pulses Gastrointestinal: non tender, soft, no organomegaly Extremity: Normal Capillary Refill, Normal Inspection, Normal Range of Motion, Non Tender, No Calf Tenderness, No Pedal Edema Neurologic/Psychiatric: Alert, Oriented x3, No Motor/Sensory Deficits, Normal Mood/Affect Skin: Normal Color, Warm/Dry Lymphatic: No Adenopathy Results Lab Laboratory Tests 03/30/19 08:11: White Blood Count 5.0, Red Blood Count 3.78L, Hemoglobin 8.1L, Hematocrit 27L, Mean Corpuscular Volume 70L, Mean Corpuscular Hemoglobin 21L, Mean Corpuscular Hemoglobin Concent 31L, Red Cell Distribution Width 22.0H, Platelet Count 200, Mean Platelet Volume 8.9, Neutrophils (%) (Auto) 65, Lymphocytes (%) (Auto) 25, Monocytes (%) (Auto) 8, Eosinophils (%) (Auto) 2, Basophils (%) (Auto) 0, Neutrophils # (Auto) 3.3, Lymphocytes # (Auto) 1.2, Monocytes # (Auto) 0.4, Eosinophils # (Auto) 0.1, Basophils # (Auto) 0.0, Sodium Level 134L, Potassium Level 4.2, Chloride Level 104, Carbon Dioxide Level 22, Anion Gap 8, Blood Urea Nitrogen 11, Creatinine 0.99, Estimat Glomerular Filtration Rate > 60, BUN/Creatinine Ratio 11, Glucose Level 247H, Calcium Level 8.3L, Corrected Calcium 8.8, Total Bilirubin 0.6, Aspartate Amino Transf (AST/SGOT) 23, Alanine Aminotransferase (ALT/SGPT) 24, Alkaline Phosphatase 85, Total Protein 6.9, Albumin 3.4 03/30/19 11:05: Glucometer 333H 03/30/19 16:15: Glucometer 327H 03/30/19 21:05: Glucometer 231H 03/31/19 05:10: Glucometer 110 03/31/19 05:22: White Blood Count 5.2, Red Blood Count 3.91L, Hemoglobin 8.0L, Hematocrit 27L, Mean Corpuscular Volume 70L, Mean Corpuscular Hemoglobin 20L, Mean Corpuscular Hemoglobin Concent 29L, Red Cell Distribution Width 21.7H, Platelet Count 229, Mean Platelet Volume 9.3, Neutrophils (%) (Auto) 71, Lymphocytes (%) (Auto) 18, Monocytes (%) (Auto) 9, Eosinophils (%) (Auto) 2, Basophils (%) (Auto) 0, Neutrophils # (Auto) 3.7, Lymphocytes # (Auto) 1.0, Monocytes # (Auto) 0.5, Eosinophils # (Auto) 0.1, Basophils # (Auto) 0.0, Sodium Level 138, Potassium Level 3.7, Chloride Level 107, Carbon Dioxide Level 24, Anion Gap 7, Blood Urea Nitrogen 10, Creatinine 0.82, Estimat Glomerular Filtration Rate > 60, BUN/Creatinine Ratio 12, Glucose Level 109H, Calcium Level 8.5, Corrected Calcium 9.1, Total Bilirubin 0.4, Aspartate Amino Transf (AST/SGOT) 26, Alanine Aminotransferase (ALT/SGPT) 23, Alkaline Phosphatase 84, Total Protein 7.0, Albumin 3.3 Microbiology 03/29/19 Urine Culture - Preliminary, Resulted Escherichia coli Assessment/Plan Assessment/Plan Assessment/Plan Anemia likely secondary to upperGI bleed requiring transfusion melena Diabetes patient npo agrees to EGD today plan egd to day protonix Clinical Quality Measures DVT/VTE Risk/Contraindication: Risk Factor Score Per Nursin RFS Level Per Nursing on Admit: 2=Moderate ANABELL ORELLANA DO Mar 31, 2019 07:29
[2019-03-31] MEDS ORDERED: LORATADINE (CLARITIN) 10 MG TAB PO PRN (09:00)
--- NOTE | 2019-03-31 09:00 | NUR ---
NPO FOR EDG TODAY, VERBALIZED UNDERSTANDING, INSULIN HELD DUE TO BEING NPO, DR ROJAS AWARE
--- NOTE | 2019-03-31 10:03 | Progress Note-Hospitalist ---
Subjective HPI/CC On Admission Date Seen by Provider: Mar 31, 2019 Time Seen by Provider: 09:30 Chief complaint: Severe anemia HPI: This is a 59yoWM known to us from prior hospital stays with a past medical history of severe anemia from GI bleed and a new bladder mass who presents to the ER with weakness and SOB found to have low Hgb s/p two units of blood increased Hgb to 8.1 but requiring two more units due to the rapid loss. Dr. Hansen will be consulted. He is in the process of obtaining Medicaid insurance with disability and he cannot afford to go see urology for the bladder mass. I will consult Dr. Hansen and I have restarted all of his home medications. Subjective/Events-last exam EGD scheduled today Hgb remains stable at 8 with 4 units of transfusion yesterday and the day before Dr. 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 Review of Systems General: Fatigue Objective Exam Vital Signs Vital Signs Date Time Temp Pulse Resp B/P (MAP) Pulse Ox O2 Delivery O2 Flow Rate FiO2 03/31/19 15:48 98.5 80 20 128/81 (97) 99 Room Air Capillary Refill : Less Than 3 SecondsLess Than 3 Seconds General Appearance: No Apparent Distress, WD/WN, Chronically ill, Obese HEENT: PERRL/EOMI, Normal ENT Inspection, Pharynx Normal, Moist Mucous Membranes Neck: Full Range of Motion, Normal Inspection, Non Tender Respiratory: Chest Non Tender, No Accessory Muscle Use, No Respiratory Distress Cardiovascular: Regular Rate, Rhythm, Normal Peripheral Pulses Gastrointestinal: Normal Bowel Sounds, No Organomegaly, No Pulsatile Mass, Non Tender, Soft Back: Normal Inspection, No CVA Tenderness, No Vertebral Tenderness Extremity: Normal Capillary Refill, Normal Inspection, Normal Range of Motion, Non Tender, No Calf Tenderness, No Pedal Edema Neurologic/Psychiatric: Alert, Oriented x3, No Motor/Sensory Deficits, Normal Mood/Affect Skin: Normal Color, Warm/Dry Lymphatic: No Adenopathy Results/Procedures Lab Laboratory Tests 03/31/19 05:22 Patient resulted labs reviewed. Assessment/Plan Assessment and Plan Assess & Plan/Chief Complaint Assessment: Severe anemia Transfusion 4 units of blood since admit h/o GIB Bladder mass Smoker Hepatitis C Type 2 diabetes mellitus with hyperglycemia, with long-term current use of insulin Hypertension Hyperlipidemia Hyperglycemia Plan: Consult Dr Hansen Monitor hgb Home meds EGD reveals AV malformations Diagnosis/Problems Diagnosis/Problems (1) Symptomatic anemia Status: Acute (2) Transfusion of blood during current hospitalisation Status: Acute (3) Smoker Status: Chronic (4) Hyperlipidemia Status: Chronic Qualifiers: Hyperlipidemia type: mixed hyperlipidemia Qualified Codes: E78.2 - Mixed hyperlipidemia (5) Hypertension Status: Chronic Qualifiers: Hypertension type: essential hypertension Qualified Codes: I10 - Essential (primary) hypertension (6) Type 2 diabetes mellitus with hyperglycemia, with long-term current use of insulin Status: Chronic (7) Hepatitis C Status: Chronic Qualifiers: Viral hepatitis chronicity: acute Hepatic coma status: without hepatic coma Qualified Codes: B17.10 - Acute hepatitis C without hepatic coma (8) Hyperglycemia Status: Acute (9) Anemia Status: Acute Qualifiers: Anemia type: iron deficiency Iron deficiency anemia type: chronic blood loss Qualified Codes: D50.0 - Iron deficiency anemia secondary to blood loss (chronic) (10) Abnormal CT scan, bladder Status: Chronic Clinical Quality Measures DVT/VTE Risk/Contraindication: Risk Factor Score Per Nursin RFS Level Per Nursing on Admit: 2=Moderate JESUS ROJAS DO Mar 31, 2019 10:03
[2019-03-31] MEDS: FERROUS SULF 325 MG (IRON) TAB PO SCH ×3 (10:35→22:26)
[2019-03-31] MEDS: LOSARTAN 50 MG (COZAAR) TAB PO SCH (10:35)
[2019-03-31] MEDS: TAMSULOSIN 0.4 MG (FLOMAX) CAP PO SCH (10:35)
[2019-03-31] MEDS: PANTOPRAZOLE 40 MG (PROTONIX) TAB PO SCH (10:35)
[2019-03-31] MEDS: MULTIVIT W/MINERALS TAB (THERAGRAN M) PO SCH (10:36)
[2019-03-31] MEDS ORDERED: proPOfol 200 MG/20 ML (DIPRIVAN) VIAL IV ONE (17:12)
[2019-03-31] MEDS ORDERED: MIDAZOLAM 2 MG/2 ML (VERSED) VIAL ONE (17:13)
[2019-03-31] MEDS ORDERED: LACTATED RINGERS 1,000 ML IV ONE (17:15)
[2019-03-31] MEDS ORDERED: HURRICAINE EXT TUBE (BENZOCAINE) ONE (17:15)
--- NOTE | 2019-03-31 17:15 | NUR ---
DOWN FOR EGD
--- NOTE | 2019-03-31 18:10 | Progress Note-Post Operative ---
Post-Operative Progess Note Surgeon (s)/Silk Opener (s) Surgeon ANABELL ORELLANA DO Silk Opener: na Pre-Operative Diagnosis anemia Post-Operative Diagnosis gastric av malformations Procedure & Operative Findings Date of Procedure 03/31/19 Procedure Performed/Findings egd Anesthesia Type per [facility] Estimated Blood Loss Estimated blood loss (mL): none Specimens/Packing Specimens Removed na ANABELL ORELLANA DO Mar 31, 2019 18:10
--- NOTE | 2019-03-31 18:17 | NUR ---
RETURNED FROM EGD, INSTRUCTED ON CLEAR LIQUID DIET
--- NOTE | 2019-04-01 00:25 | OPERATIVE REPORT ---
DATE OF SERVICE: 03/31/2019 PREOPERATIVE DIAGNOSIS: Anemia. POSTOPERATIVE DIAGNOSIS: Gastric AV malformations. PROCEDURE: EGD. SURGEON: Anabell Hansen DO ANESTHESIA: Per MDA. ESTIMATED BLOOD LOSS: None. COMPLICATIONS: None. INDICATIONS: The patient is a 59-year-old male with anemia. He understands risks and benefits of procedure and wished to proceed with procedure. Consent was signed and on the chart. DESCRIPTION OF PROCEDURE: The patient was taken to the endoscopy suite, placed in left lateral recumbent position. Timeout was performed. Scope was inserted in mouth, down the esophagus, stomach and into the duodenum without difficulty. There were no polyps, masses or ulcerations within the duodenum. Scope was slowly retracted back into the stomach where it was further insufflated. Multiple small AVMs present. No other pathology noted. The scope was retroflexed noting no significant hiatal hernia. Scope was returned to its normal position, slowly withdrawn to the distal esophagus, had normal appearance. Scope was then slowly retracted back until completely removed. The patient tolerated procedure well without any complications, taken to recovery room in stable condition. RECOMMENDATIONS: The patient to continue on current medications. There was no active bleeding at this time. Continue to monitor for anemia. Transfuse as needed. If any suspicion of active bleeding, we will repeat EGD. Job ID: [id number] DocumentID: [id number] Dictated Date: 03/31/2019 18:12:24 Phosphoric Acid Operator Date: 04/01/2019 00:23:52 Dictated By: ANABELL HANSEN DO
[2019-04-01] MEDS: ONDANSETRON 4 MG/2 ML (SDV) Z0FRAN IV PRN (01:28)
[2019-04-01] MEDS: NS IV 1000 ML 1,000 ML IV SCH (02:24)
[2019-04-01 04:00] VITALS: BP 113/65
[2019-04-01] MEDS: inSUlin ASPART (NovoLOG) 1 UNIT/0.01 ML (CHARGE PER UNIT) SC SCH ×2 (05:47→11:43)
[2019-04-01 06:29] LABS: BASOPHILS % (AUTO) 0 % (0-10); EOSINOPHILS # (AUTO) 0.1 10^3/uL (0.0-0.3); EOSINOPHILS % (AUTO) 1 % (0-10); HEMATOCRIT 28 % (40-54); LYMPHOCYTES # (AUTO) 1.1 X 10^3 (1.0-4.0); LYMPHOCYTES % (AUTO) 24 % (12-44); MEAN CORPUSCULAR HEMOGLOBIN 21 PG (25-34); MEAN CORPUSCULAR HGB CONC 29 G/DL (32-36); MEAN CORPUSCULAR VOLUME 72 FL (80-99); MEAN PLATELET VOLUME 9.6 FL (7.4-10.4); MONOCYTES # (AUTO) 0.4 X 10^3 (0.0-1.0); MONOCYTES % (AUTO) 9 % (0-12); NEUTROPHILS % (AUTO) 66 % (42-75); PLATELET COUNT 200 10^3/uL (130-400); RED CELL DISTRIBUTION WIDTH 22.1 % (10.0-14.5); WHITE BLOOD COUNT 4.5 10^3/uL (4.3-11.0)
[2019-04-01] MEDS: SUCRALFATE 1 GM (CARAFATE) TAB PO SCH ×2 (06:46→11:43)
[2019-04-01 06:49] LABS: ALANINE AMINOTRANSFERASE 24 U/L (0-55); ALBUMIN 3.4 GM/DL (3.2-4.5); ALKALINE PHOSPHATASE 78 U/L (40-136); BILIRUBIN,TOTAL 0.5 MG/DL (0.1-1.0); BUN/CREATININE RATIO 16; CALCIUM 8.3 MG/DL (8.5-10.1); CARBON DIOXIDE 22 MMOL/L (21-32); CHLORIDE 107 MMOL/L (98-107); CREATININE SERUM 0.85 MG/DL (0.60-1.30); GFR ESTIMATED > 60; GLUCOSE 128 MG/DL (70-105); POTASSIUM 4.2 MMOL/L (3.6-5.0); SODIUM 137 MMOL/L (135-145); TOTAL PROTEIN 6.8 GM/DL (6.4-8.2)
[2019-04-01 08:00] VITALS: BP 144/84
[2019-04-01] MEDS: TAMSULOSIN 0.4 MG (FLOMAX) CAP PO SCH (10:45)
[2019-04-01] MEDS: LOSARTAN 50 MG (COZAAR) TAB PO SCH (10:45)
[2019-04-01] MEDS: PANTOPRAZOLE 40 MG (PROTONIX) TAB PO SCH (10:45)
[2019-04-01] MEDS: FERROUS SULF 325 MG (IRON) TAB PO SCH (10:45)
[2019-04-01] MEDS: MULTIVIT W/MINERALS TAB (THERAGRAN M) PO SCH (10:45)
[2019-04-01 12:00] VITALS: BP 128/72
--- NOTE | 2019-04-01 12:11 | Discharge Summary-Hospitalist ---
Diagnosis/Chief Complaint Date of Admission Mar 29, 2019 at 20:40 Date of Discharge Discharge Date: Apr 01, 2019 Admission Diagnosis Assessment: Severe anemia Transfusion 4 units of blood h/o GIB Bladder mass Smoker Hepatitis C Type 2 diabetes mellitus with hyperglycemia, with long-term current use of insulin Hypertension Hyperlipidemia Hyperglycemia Plan: Consult Dr Hansen Monitor hgb Home meds Discharge Diagnosis (1) Symptomatic anemia Status: Acute (2) Transfusion of blood during current hospitalisation Status: Acute (3) Smoker Status: Chronic (4) Hyperlipidemia Status: Chronic (5) Hypertension Status: Chronic (6) Type 2 diabetes mellitus with hyperglycemia, with long-term current use of insulin Status: Chronic (7) Hepatitis C Status: Chronic (8) Hyperglycemia Status: Acute (9) Anemia Status: Acute (10) Abnormal CT scan, bladder Status: Chronic Discharge Summary Discharge Physical Exam Allergies: Coded Allergies: No Known Drug Allergies (Unverified , 04/10/17) Vitals & I&Os Vital Signs Date Time Temp Pulse Resp B/P (MAP) Pulse Ox O2 Delivery O2 Flow Rate FiO2 04/01/19 18:53 04/01/19 13:00 91 04/01/19 12:00 98.2 20 99 Room Air General Appearance: No Apparent Distress, WD/WN Respiratory: Chest Non Tender, Lungs Clear, Normal Breath Sounds, No Accessory Muscle Use, No Respiratory Distress Cardiovascular: Regular Rate, Rhythm, No Edema, No Gallop, No JVD, No Murmur, Normal Peripheral Pulses Neurologic/Psychiatric: Alert, Oriented x3, No Motor/Sensory Deficits, Normal Mood/Affect Hospital Course Was the Problem List Reviewed?: Yes Herbert Navarro is his PCP. Labs remain stable. Has a bladder mass that he will see the urologist on the but he doesn't;t have any younger upfront to be able to go to an appointment like that so he will need to work through that. I walked in and his significant other was the one in bed and he was in a chair by the window. All labs and medications reviewed. Hospital course: Pt had an uneventful hospital course he was admitted and given blood for severe symptomatic anemia, EGD showed AV malformations, Pt was maintained on home medications and bladder mass will be addressed by urology, likely needs resection. Pt will get close follow-up with PCP and continue home medications. Labs (last 24 hrs) Laboratory Tests 03/31/19 21:01: Glucometer 397H 6/19/19 05:32: White Blood Count 4.5, Red Blood Count 3.84L, Hemoglobin 8.0L, Hematocrit 28L, Mean Corpuscular Volume 72L, Mean Corpuscular Hemoglobin 21L, Mean Corpuscular Hemoglobin Concent 29L, Red Cell Distribution Width 22.1H, Platelet Count 200, Mean Platelet Volume 9.6, Neutrophils (%) (Auto) 66, Lymphocytes (%) (Auto) 24, Monocytes (%) (Auto) 9, Eosinophils (%) (Auto) 1, Basophils (%) (Auto) 0, Neutrophils # (Auto) 3.0, Lymphocytes # (Auto) 1.1, Monocytes # (Auto) 0.4, Eosinophils # (Auto) 0.1, Basophils # (Auto) 0.0 04/01/19 05:43: Sodium Level 137, Potassium Level 4.2, Chloride Level 107, Carbon Dioxide Level 22, Anion Gap 8, Blood Urea Nitrogen 14, Creatinine 0.85, Estimat Glomerular Filtration Rate > 60, BUN/Creatinine Ratio 16, Glucose Level 128H, Calcium Level 8.3L, Corrected Calcium 8.8, Total Bilirubin 0.5, Aspartate Amino Transf (AST/S GOT) 29, Alanine Aminotransferase (ALT/SGPT) 24, Alkaline Phosphatase 78, Total Protein 6.8, Albumin 3.4 04/01/19 05:45: Glucometer 153H 04/01/19 11:15: Glucometer 315H Microbiology 03/30/19 MRSA Screen - Final, Complete MRSA not isolated 03/29/19 Urine Culture - Final, Complete Escherichia coli Patient resulted labs reviewed. Pending Labs Discussion & Recommendations Discharge Planning: <30 minutes discharge planning Discharge Home Medications: Active Scripts Active Reported Levemir (Insulin Determir) 1,000 Units/10 Ml Soln 40 Units SQ BID Viagra (Sildenafil Citrate) 100 Mg Tablet 100 Mg PO UD PRN Tylenol Extra Strength (Acetaminophen) 500 Mg Tablet 500-1,000 Mg PO Q4H PRN Flomax (Tamsulosin HCl) 0.4 Mg Cap 0.4 Mg PO DAILY Carafate (Sucralfate) 1 Gm Tablet 1 Gm PO ACHS LAST FILLED #120 02-17-19 Losartan Potassium 50 Mg Tablet 50 Mg PO DAILY Protonix (Pantoprazole Sodium) 40 Mg Tablet.dr 40 Mg PO DAILY LAST FILLED #30 -7-19 Multivitamins (Multivitamin) 1 Each Tablet 1 Tab PO DAILY Ferrous Sulfate 325 Mg Tablet 2 Tab PO BID Proventil Hfa (Albuterol Sulfate) 6.7 Gm Hfa.aer.ad 2 Puff IH QID PRN Claritin (Loratadine) 10 Mg Tablet 10 Mg PO DAILY PRN Instructions to patient/family Please see electronic discharge instructions given to patient. Clinical Quality Measures DVT/VTE Risk/Contraindication: Risk Factor Score Per Nursin RFS Level Per Nursing on Admit: 2=Moderate Problem Qualifiers (1) Hyperlipidemia: Hyperlipidemia type: mixed hyperlipidemia Qualified Codes: E78.2 - Mixed hyperlipidemia (2) Hypertension: Hypertension type: essential hypertension Qualified Codes: I10 - Essential (primary) hypertension (3) Hepatitis C: Viral hepatitis chronicity: acute Hepatic coma status: without hepatic coma Qualified Codes: B17.10 - Acute hepatitis C without hepatic coma (4) Anemia: Anemia type: iron deficiency Iron deficiency anemia type: chronic blood loss Qualified Codes: D50.0 - Iron deficiency anemia secondary to blood loss (chronic) JESUS ROJAS DO Apr 01, 2019 12:11
--- NOTE | 2019-04-01 16:13 | NUR ---
Pt discharged home.While hospitalized pt states his vehicle was impounded and he has been evicted. He and his plan to live with relatives. He was provided gas assistance to assist in his transport home with a borrowed vehicle. 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 He is followed by Herbert CALHOUN at the [facility] and their pharmacy has agreed to assist with his medication refills. Pt requested that his appt be canceled with Dr. Pete as he is unable to pay the required funds for his office visit. Will fax current records to Geo Navarro for his followup and assist in obtaining urology follow-up.
--- NOTE | 2019-04-01 17:07 | Progress Note ---
Subjective Date Seen by a Provider: Apr 01, 2019 Time Seen by a Provider: 10:00 Subjective/Events-last exam patient with no new issues. no abdominal pain. hgb stable. denies n/v fever sweats chills shortness of breath or chest pain. Review of Systems Gastrointestinal: Constipation Objective Exam Vital Signs Date Time Temp Pulse Resp B/P (MAP) Pulse Ox O2 Delivery O2 Flow Rate FiO2 04/01/19 13:00 91 04/01/19 12:00 98.2 75 20 128/72 (90) 99 Room Air 04/01/19 08:00 97 Room Air 04/01/19 08:00 99.0 83 20 144/84 (104) 99 Room Air 04/01/19 07:00 78 04/01/19 04:00 98.4 73 16 113/65 (81) 97 Room Air 04/01/19 00:53 76 03/31/19 23:18 98.7 79 18 128/68 (88) 98 Room Air 03/31/19 22:24 98.6 03/31/19 20:00 97 Room Air 03/31/19 19:43 98.6 86 20 166/76 (106) 100 Room Air 03/31/19 19:00 86 I & O 04/01/19 07:00 Intake Total 3851 ml Balance 3851 ml Capillary Refill : Less Than 3 SecondsLess Than 3 Seconds General Appearance: No Apparent Distress, WD/WN, Chronically ill, Obese HEENT: PERRL/EOMI, Normal ENT Inspection, Pharynx Normal, Moist Mucous Membranes Neck: Full Range of Motion, Normal Inspection, Non Tender Respiratory: Chest Non Tender, No Accessory Muscle Use, No Respiratory Distress Cardiovascular: Regular Rate, Rhythm, Normal Peripheral Pulses Gastrointestinal: non tender, soft, no organomegaly Extremity: Normal Capillary Refill, Normal Inspection, Normal Range of Motion, Non Tender, No Calf Tenderness, No Pedal Edema Neurologic/Psychiatric: Alert, Oriented x3, No Motor/Sensory Deficits, Normal Mood/Affect Skin: Normal Color, Warm/Dry Lymphatic: No Adenopathy Results Lab Laboratory Tests 03/31/19 21:01: Glucometer 397H 04/01/19 05:32: White Blood Count 4.5, Red Blood Count 3.84L, Hemoglobin 8.0L, Hematocrit 28L, Mean Corpuscular Volume 72L, Mean Corpuscular Hemoglobin 21L, Mean Corpuscular Hemoglobin Concent 29L, Red Cell Distribution Width 22.1H, Platelet Count 200, Mean Platelet Volume 9.6, Neutrophils (%) (Auto) 66, Lymphocytes (%) (Auto) 24, Monocytes (%) (Auto) 9, Eosinophils (%) (Auto) 1, Basophils (%) (Auto) 0, Neutrophils # (Auto) 3.0, Lymphocytes # (Auto) 1.1, Monocytes # (Auto) 0.4, Eosinophils # (Auto) 0.1, Basophils # (Auto) 0.0 04/01/19 05:43: Sodium Level 137, Potassium Level 4.2, Chloride Level 107, Carbon Dioxide Level 22, Anion Gap 8, Blood Urea Nitrogen 14, Creatinine 0.85, Estimat Glomerular Filtration Rate > 60, BUN/Creatinine Ratio 16, Glucose Level 128H, Calcium Level 8.3L, Corrected Calcium 8.8, Total Bilirubin 0.5, Aspartate Amino Transf (AST/SGOT) 29, Alanine Aminotransferase (ALT/SGPT) 24, Alkaline Phosphatase 78, Total Protein 6.8, Albumin 3.4 04/01/19 05:45: Glucometer 153H 04/01/19 11:15: Glucometer 315H Microbiology 03/30/19 MRSA Screen - Final, Complete MRSA not isolated 03/29/19 Urine Culture - Final, Complete Escherichia coli Assessment/Plan Assessment/Plan Assessment/Plan Anemia likely secondary avm bleed no active bleeding at time of egd melena Diabetes patient tolerating diet hgb stable to continue protonix and carafate as before f/u outpatient. Clinical Quality Measures DVT/VTE Risk/Contraindication: Risk Factor Score Per Nursin RFS Level Per Nursing on Admit: 2=Moderate ANABELL ORELLANA DO Apr 01, 2019 17:07
--- NOTE | 2019-04-02 14:20 | Anesthesia-General Post-Op ---
MAC Patient Condition Mental Status/LOC: Same as Preop Cardiovascular: Satisfactory Nausea/Vomiting: Absent Respiratory: Satisfactory Pain: Controlled Complications: Absent Post Op Complications Complications None Follow Up Care/Instructions Patient Instructions None needed. Anesthesiology Discharge Order Discharge Order Post dated note from 03/31/19 at 1930: Patient is doing well, no complaints, stable vital signs, no apparent adverse anesthesia problems. No complications reported per nursing. AYAH HODGE [employer] Apr 02, 2019 14:20
== END 2019-04-01 15:20 | disposition home or self-care (01) ==
LOC: EDUNIT# 19:36 → ER 19:38 → 4TH 20:40
PROVIDERS: ADMIT Family Medicine; ATTEND Family Medicine
DX: K31.811 Angiodysplasia of stomach and duodenum with bleeding (principal); D50.0 Iron deficiency anemia secondary to blood loss (chronic); N32.9 Bladder disorder, unspecified; E11.65 Type 2 diabetes mellitus with hyperglycemia; E11.43 Type 2 diabetes mellitus with diabetic autonomic (poly)neuropathy; I10 Essential (primary) hypertension; I25.10 Atherosclerotic heart disease of native coronary artery without angina pectoris; E78.5 Hyperlipidemia, unspecified; B17.10 Acute hepatitis C without hepatic coma; F17.210 Nicotine dependence, cigarettes, uncomplicated; G47.30 Sleep apnea, unspecified; K21.9 Gastro-esophageal reflux disease without esophagitis; E66.01 Morbid (severe) obesity due to excess calories; Z68.38 Body mass index [BMI] 38.0-38.9, adult; Z79.4 Long term (current) use of insulin; Z79.899 Other long term (current) drug therapy
CPT/HCPCS: 36415; 71045; 80053; 80306; 81000; 82962; 83735; 84484; 85025; 86141; 86850; 86870; 86900; 86901; 86922; 87077; 87081; 87088; 93005; 96360; 96372; G0378